=== PATIENT | male | born 1970 | race Caucasian/White ===

== ENCOUNTER 2019-07-16 14:51 | Emergency (ER) | payer OTHER ==
[~2019-07-16] VITALS: Ht 172.7 cm; Wt 93.9 kg
[~2019-07-16 14:51] MED LIST: ASPIRIN81 MG; ATENOLOL50 MG PO; BRILINTA90 MG; CARAFATE1 GM/10 ML PO; DIOVAN160 MG PO; HUMALOG100 UNIT/1; LEVAQUIN250 MG PO; LEVAQUIN500 MG PO; LIPITOR20 MG; PIOGLITAZONE HC45 MG PO; PROCARDIA XL30 MG; XYZAL5 MG PO
--- OUTSIDE RECORDS SUMMARY | 2019-07-16 14:54 | XMS REPORT ---
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 Allergies, Adverse Reactions, Alerts This patient has no known allergies or adverse reactions. Medications This patient has no known medications. Results Test Description Test Time Test Comments Text Results Atomic Results Result Comments POCT-GLUCOSE METER 2016-10-18 11:29:00 POC-GLUCOSE METER (BEAKER) (test gtcn=6842) 208 mg/dL 70-110 TESTED AT [facility] [address] [address] LIPID [id number] 09:01:00* Test Item Value Reference Range Comments TRIGLYCERIDES (BEAKER) (test nscm=548) 167 mg/dL Specimen slightly hemolyzed CHOLESTEROL (BEAKER) (test xrxr=027) 142 mg/dL Specimen slightly hemolyzed HDL CHOLESTEROL (BEAKER) (test xmfp=430) 30 mg/dL LDL CHOLESTEROL CALCULATED (BEAKER) (test xwhq=819) 79 mg/dL Triglyceride Reference Range: Low Risk <150 Borderline 150-199 High Risk 200-499 Very High Risk >=500Cholesterol Reference Range: Low Risk <200 Borderline 200-239 High Risk >240HDL Cholesterol Reference Range: Low Risk >=60 High Risk <40LDL Cholesterol Reference Range: Optimal <100 Near Optimal 100-129 Borderline 130-159 High 160-189 Very High >=190 HEMOGLOBIN [id number] 08:47:00* Test Item Value Reference Range Comments HEMOGLOBIN A1C (BEAKER) (test mahg=044) 10.2 % 4.3-6.1 CREATINE KINASE (CK), TOTAL AND [id number] 08:21:00* Test Item Value Reference Range Comments CREATINE KINASE TOTAL (BEAKER) (test zpwl=554) 97 U/L 40-250 CREATINE KINASE-MB (BEAKER) (test iwik=207) 7.7 ng/mL 0.0-4.9 CREATINE KINASE-MB INDEX (BEAKER) (test jlqx=643) 7.9 % CK-MB Reference Range:<5 Normal5-10 Borderline>10 AbnormalBASIC METABOLIC [id number] 08:06:00* Test Item Value Reference Range Comments SODIUM (BEAKER) (test pitw=781) 142 meq/L 135-148 POTASSIUM (BEAKER) (test svfd=945) 3.8 meq/L 3.6-5.5 Specimen slightly hemolyzed CHLORIDE (BEAKER) (test axkb=006) 108 meq/L 98-106 CO2 (BEAKER) (test rida=533) 22 meq/L 20-29 BLOOD UREA NITROGEN (BEAKER) (test yzrs=370) 21 mg/dL 10-26 CREATININE (BEAKER) (test pzxv=518) 1.20 mg/dL 0.50-1.20 Specimen slightly hemolyzed GLUCOSE RANDOM (BEAKER) (test ougn=249) 169 mg/dL 70-110 CALCIUM (BEAKER) (test fduu=626) 9.0 mg/dL 8.5-10.5 EGFR (BEAKER) (test mrpj=0724) 65 mL/min/1.73 sq m ESTIMATED GFR IS NOT ACCURATE CREATININE CLEARANCE IN PREDICTING GLOMERULAR FILTRATION RATE. ESTIMATED GFR IS NOT APPLICABLE FOR DIALYSIS PATIENTS. [id number] 07:58:00* Test Item Value Reference Range Comments MAGNESIUM (BEAKER) (test wqzt=231) 2.8 mg/dL 1.5-3.0 Specimen slightly hemolyzed POCT-GLUCOSE [id number] 07:49:00* Test Item Value Reference Range Comments POC-GLUCOSE METER (BEAKER) (test gthh=6705) 181 mg/dL 70-110 TESTED AT [facility] [address] [place] [address] CBC W/PLT COUNT & AUTO [id number] 07:41:00* Test Item Value Reference Range Comments WHITE BLOOD CELL COUNT (BEAKER) (test jzll=007) 9.3 K/ L 4.0-10.0 RED BLOOD CELL COUNT (BEAKER) (test vrfd=382) 4.77 M/ L 4.20-5.80 HEMOGLOBIN (BEAKER) (test mhgs=518) 14.3 GM/DL 13.0-16.8 HEMATOCRIT (BEAKER) (test yijp=246) 43.8 % 40.0-50.0 MEAN CORPUSCULAR VOLUME (BEAKER) (test mvrk=063) 91.7 fL 82.0-98.0 MEAN CORPUSCULAR HEMOGLOBIN (BEAKER) (test uoig=344) 29.9 pg 27.0-33.0 MEAN CORPUSCULAR HEMOGLOBIN CONC (BEAKER) (test mqmg=036) 32.7 GM/DL 32.0-36.0 RED CELL DISTRIBUTION WIDTH (BEAKER) (test ukqz=886) 12.8 % 10.3-14.2 PLATELET COUNT (BEAKER) (test lxwy=037) 276 K/CU MM 150-430 MEAN PLATELET VOLUME (BEAKER) (test mprk=730) 8.9 fL 6.5-10.5 NUCLEATED RED BLOOD CELLS (BEAKER) (test giwc=594) 0 /100 WBC 0-0 NEUTROPHILS RELATIVE PERCENT (BEAKER) (test roay=260) 69 % LYMPHOCYTES RELATIVE PERCENT (BEAKER) (test njog=014) 20 % MONOCYTES RELATIVE PERCENT (BEAKER) (test mjvv=310) 9 % EOSINOPHILS RELATIVE PERCENT (BEAKER) (test mpda=549) 2 % BASOPHILS RELATIVE PERCENT (BEAKER) (test pvgl=799) 1 % NEUTROPHILS ABSOLUTE COUNT (BEAKER) (test ggdo=376) 6.50 K/ L 1.80-8.00 LYMPHOCYTES ABSOLUTE COUNT (BEAKER) (test cefm=943) 1.80 K/ L 1.48-4.50 MONOCYTES ABSOLUTE COUNT (BEAKER) (test pfkp=401) 0.80 K/ L 0.00-1.30 EOSINOPHILS ABSOLUTE COUNT (BEAKER) (test nqmk=559) 0.20 K/ L 0.00-0.50 BASOPHILS ABSOLUTE COUNT (BEAKER) (test lglb=018) 0.10 K/ L 0.00-0.20 POCT-GLUCOSE [id number] 21:27:00* Test Item Value Reference Range Comments POC-GLUCOSE METER (BEAKER) (test vuhn=1778) 276 mg/dL 70-110 TESTED AT [facility] [address] [place] [address] BLOOD [id number] 19:00:00* Test Item Value Reference Range Comments CULTURE (BEAKER) (test wcov=3386) No growth in 5 days BLOOD [id number] 19:00:00* Test Item Value Reference Range Comments CULTURE (BEAKER) (test vixh=8648) No growth in 5 days POCT-GLUCOSE [id number] 18:41:00* Test Item Value Reference Range Comments POC-GLUCOSE METER (BEAKER) (test ccgc=5507) 175 mg/dL 70-110 TESTED AT [facility] [address] [address] BASIC METABOLIC [id number] 17:35:00* Test Item Value Reference Range Comments SODIUM (BEAKER) (test gxhq=579) 137 meq/L 135-148 POTASSIUM (BEAKER) (test jkgp=329) 3.9 meq/L 3.6-5.5 CHLORIDE (BEAKER) (test wtbs=083) 105 meq/L 98-106 CO2 (BEAKER) (test cfra=137) 21 meq/L 20-29 BLOOD UREA NITROGEN (BEAKER) (test vuwx=760) 23 mg/dL 10-26 CREATININE (BEAKER) (test qzyf=417) 1.30 mg/dL 0.50-1.20 GLUCOSE RANDOM (BEAKER) (test ntdi=293) 176 mg/dL 70-110 CALCIUM (BEAKER) (test qakr=567) 9.2 mg/dL 8.5-10.5 EGFR (BEAKER) (test yzbm=1500) 59 mL/min/1.73 sq m ESTIMATED GFR IS NOT ACCURATE CREATININE CLEARANCE IN PREDICTING GLOMERULAR FILTRATION RATE. ESTIMATED GFR IS NOT APPLICABLE FOR DIALYSIS PATIENTS. [id number] 17:29:00* Test Item Value Reference Range Comments MAGNESIUM (BEAKER) (test chev=481) 2.4 mg/dL 1.5-3.0 CBC W/PLT COUNT & AUTO [id number] 17:20:00* Test Item Value Reference Range Comments WHITE BLOOD CELL COUNT (BEAKER) (test nopf=376) 11.3 K/ L 4.0-10.0 RED BLOOD CELL COUNT (BEAKER) (test qavc=853) 4.86 M/ L 4.20-5.80 HEMOGLOBIN (BEAKER) (test nubh=699) 14.7 GM/DL 13.0-16.8 HEMATOCRIT (BEAKER) (test achy=210) 44.5 % 40.0-50.0 MEAN CORPUSCULAR VOLUME (BEAKER) (test knab=996) 91.5 fL 82.0-98.0 MEAN CORPUSCULAR HEMOGLOBIN (BEAKER) (test ffib=186) 30.2 pg 27.0-33.0 MEAN CORPUSCULAR HEMOGLOBIN CONC (BEAKER) (test hgkp=943) 33.0 GM/DL 32.0-36.0 RED CELL DISTRIBUTION WIDTH (BEAKER) (test kelo=794) 12.6 % 10.3-14.2 PLATELET COUNT (BEAKER) (test jmqb=508) 309 K/CU MM 150-430 MEAN PLATELET VOLUME (BEAKER) (test nhue=559) 8.9 fL 6.5-10.5 NUCLEATED RED BLOOD CELLS (BEAKER) (test nctp=009) 0 /100 WBC 0-0 NEUTROPHILS RELATIVE PERCENT (BEAKER) (test wzte=723) 78 % LYMPHOCYTES RELATIVE PERCENT (BEAKER) (test lkrp=928) 15 % MONOCYTES RELATIVE PERCENT (BEAKER) (test qfnh=907) 5 % EOSINOPHILS RELATIVE PERCENT (BEAKER) (test unrn=220) 2 % BASOPHILS RELATIVE PERCENT (BEAKER) (test zlwu=389) 0 % NEUTROPHILS ABSOLUTE COUNT (BEAKER) (test nigf=932) 8.80 K/ L 1.80-8.00 LYMPHOCYTES ABSOLUTE COUNT (BEAKER) (test nosr=432) 1.60 K/ L 1.48-4.50 MONOCYTES ABSOLUTE COUNT (BEAKER) (test pmsz=220) 0.60 K/ L 0.00-1.30 EOSINOPHILS ABSOLUTE COUNT (BEAKER) (test tvam=538) 0.20 K/ L 0.00-0.50 BASOPHILS ABSOLUTE COUNT (BEAKER) (test dhgd=129) 0.00 K/ L 0.00-0.20 POCT-GLUCOSE [id number] 16:39:00* Test Item Value Reference Range Comments POC-GLUCOSE METER (BEAKER) (test iopj=0618) 180 mg/dL 70-110 TESTED AT [facility] [address] [address] POCT-GLUCOSE [id number] 12:54:00* Test Item Value Reference Range Comments POC-GLUCOSE METER (BEAKER) (test pvcb=4755) 331 mg/dL 70-110 TESTED AT [address] [address] POCT-GLUCOSE [id number] 06:37:00* Test Item Value Reference Range Comments POC-GLUCOSE METER (BEAKER) (test pnkh=4845) 212 mg/dL 70-110 TESTED AT [address] [address] POCT-GLUCOSE [id number] 20:54:00* Test Item Value Reference Range Comments POC-GLUCOSE METER (BEAKER) (test wiez=4535) 167 mg/dL 70-110 TESTED AT [place] [address] POCT-GLUCOSE [id number] 17:00:00* Test Item Value Reference Range Comments POC-GLUCOSE METER (BEAKER) (test ogbk=6423) 156 mg/dL 70-110 TESTED AT [address] [address] ANTI-NUCLEAR ANTIBODY (BRENDEN)2016-10-16 14:30:00* Test Item Value Reference Range Comments ANTI-NUCLEAR ANTIBODY (BRENDEN) (BEAKER) (test ryod=340) Negative Negative POCT-GLUCOSE [id number] 13:01:00* Test Item Value Reference Range Comments POC-GLUCOSE METER (BEAKER) (test lwwb=6657) 245 mg/dL 70-110 TESTED AT [place] [address] POCT-GLUCOSE [id number] 11:53:00* Test Item Value Reference Range Comments POC-GLUCOSE METER (BEAKER) (test vklc=2470) 269 mg/dL 70-110 TESTED AT [address] [address] POCT-GLUCOSE [id number] 06:15:00* Test Item Value Reference Range Comments POC-GLUCOSE METER (BEAKER) (test mlkz=9482) 263 mg/dL 70-110 TESTED AT [address] [address] POCT-GLUCOSE [id number] 06:02:00* Test Item Value Reference Range Comments POC-GLUCOSE METER (BEAKER) (test znwj=0147) 176 mg/dL 70-110 TESTED AT [place] [address] POCT-GLUCOSE [id number] 05:41:00* Test Item Value Reference Range Comments POC-GLUCOSE METER (BEAKER) (test qtmj=4935) 202 mg/dL 70-110 TESTED AT [facility] [address] [address] POCT-GLUCOSE [id number] 05:21:00* Test Item Value Reference Range Comments POC-GLUCOSE METER (ELVIRAAKER) (test pddq=2835) 183 mg/dL 70-110 TESTED AT [facility] [address] [address] POCT-GLUCOSE [id number] 05:05:00* Test Item Value Reference Range Comments POC-GLUCOSE METER (ELVIRAAKER) (test mzcv=9296) 176 mg/dL 70-110 TESTED AT [address] [address] POCT-GLUCOSE [id number] 04:59:00* Test Item Value Reference Range Comments POC-GLUCOSE METER (BINDU) (test ugaq=4706) 269 mg/dL 70-110 TESTED AT [address] [address] TROPONIN [id number] 13:40:00* Test Item Value Reference Range Comments TROPONIN I (ELVIRAAKER) (test xyha=355) < ng/mL 0.00-0.15 Troponin I (TnI) levels must be interpreted in the context of the presenting sym ptoms and the clinical findings. Elevated TnI levels indicate myocardial damage, but are not specific for ischemic heart disease. Elevated TnI levels are seen in patients with other cardiac conditions (including myocarditis and congestive h eart failure), and slight TnI elevations occur in patients with other conditions , including sepsis, renal failure, acidosis, acute neurological disease, and per sistent tachyarrhythmia.CREATINE KINASE (CK), TOTAL AND [id number] 13:40:00* Test Item Value Reference Range Comments CREATINE KINASE TOTAL (BEAKER) (test sirc=838) 46 U/L 40-250 CREATINE KINASE-MB (BEAKER) (test djbq=655) 0.6 ng/mL 0.0-4.9 CREATINE KINASE-MB INDEX (BEAKER) (test kxwm=470) 1.3 % CK-MB Reference Range:<5 Normal5-10 Borderline>10 AbnormalBASIC METABOLIC [id number] 13:40:00* Test Item Value Reference Range Comments SODIUM (BEAKER) (test klez=365) 138 meq/L 135-148 POTASSIUM (BEAKER) (test tfny=595) 4.0 meq/L 3.6-5.5 CHLORIDE (BEAKER) (test rgun=330) 102 meq/L 98-106 CO2 (BEAKER) (test tfwu=360) 23 meq/L 20-29 BLOOD UREA NITROGEN (BEAKER) (test vwgb=109) 12 mg/dL 10-26 CREATININE (BEAKER) (test hpjv=398) 1.20 mg/dL 0.50-1.20 GLUCOSE RANDOM (BEAKER) (test pfac=016) 316 mg/dL 70-110 CALCIUM (BEAKER) (test fbab=063) 9.3 mg/dL 8.5-10.5 EGFR (BEAKER) (test iise=3407) 65 mL/min/1.73 sq m ESTIMATED GFR IS NOT ACCURATE CREATININE CLEARANCE IN PREDICTING GLOMERULAR FILTRATION RATE. ESTIMATED GFR IS NOT APPLICABLE FOR DIALYSIS PATIENTS. CBC W/PLT COUNT & AUTO [id number] 12:50:00* Test Item Value Reference Range Comments WHITE BLOOD CELL COUNT (BEAKER) (test tpur=531) 11.6 K/ L 4.0-10.0 RED BLOOD CELL COUNT (BEAKER) (test mwss=788) 4.94 M/ L 4.20-5.80 HEMOGLOBIN (BEAKER) (test jwvz=022) 15.0 GM/DL 13.0-16.8 HEMATOCRIT (BEAKER) (test zfrk=317) 45.2 % 40.0-50.0 MEAN CORPUSCULAR VOLUME (BEAKER) (test meun=852) 91.4 fL 82.0-98.0 MEAN CORPUSCULAR HEMOGLOBIN (BEAKER) (test bicv=567) 30.3 pg 27.0-33.0 MEAN CORPUSCULAR HEMOGLOBIN CONC (BEAKER) (test kuqe=928) 33.1 GM/DL 32.0-36.0 RED CELL DISTRIBUTION WIDTH (BEAKER) (test xtvu=226) 12.5 % 10.3-14.2 PLATELET COUNT (BEAKER) (test xfee=194) 255 K/CU MM 150-430 MEAN PLATELET VOLUME (BEAKER) (test izfq=112) 9.4 fL 6.5-10.5 NEUTROPHILS RELATIVE PERCENT (BEAKER) (test cmjg=418) 81 % LYMPHOCYTES RELATIVE PERCENT (BEAKER) (test wbkj=002) 10 % MONOCYTES RELATIVE PERCENT (BEAKER) (test isgr=557) 6 % EOSINOPHILS RELATIVE PERCENT (BEAKER) (test noqq=180) 3 % BASOPHILS RELATIVE PERCENT (BEAKER) (test lnxi=931) 0 % NEUTROPHILS ABSOLUTE COUNT (BEAKER) (test ojgx=795) 9.40 K/ L 1.80-8.00 LYMPHOCYTES ABSOLUTE COUNT (BEAKER) (test znmd=894) 1.20 K/ L 1.48-4.50 MONOCYTES ABSOLUTE COUNT (BEAKER) (test qhzg=519) 0.70 K/ L 0.00-1.30 EOSINOPHILS ABSOLUTE COUNT (BEAKER) (test ellh=084) 0.30 K/ L 0.00-0.50 BASOPHILS ABSOLUTE COUNT (BEAKER) (test mtac=583) 0.00 K/ L 0.00-0.20 POCT-GLUCOSE [id number] 05:43:00* Test Item Value Reference Range Comments POC-GLUCOSE METER (BEAKER) (test uwuf=0470) 183 mg/dL 70-110 TESTED AT [address] [address] POCT-GLUCOSE [id number] 21:00:00* Test Item Value Reference Range Comments POC-GLUCOSE METER (BEAKER) (test nkuy=0334) 189 mg/dL 70-110 TESTED AT [address] [address] POCT-GLUCOSE [id number] 16:49:00* Test Item Value Reference Range Comments POC-GLUCOSE METER (BEAKER) (test njae=3391) 230 mg/dL 70-110 TESTED AT [address] [address] POCT-GLUCOSE [id number] 12:01:00* Test Item Value Reference Range Comments POC-GLUCOSE METER (BEAKER) (test bazw=7040) 219 mg/dL 70-110 TESTED AT [address] [address] POCT-GLUCOSE [id number] 07:13:00* Test Item Value Reference Range Comments POC-GLUCOSE METER (BEAKER) (test nezw=9076) 206 mg/dL 70-110 TESTED AT [place] [address] VANCOMYCIN LEVEL, [id number] 05:07:00* Test Item Value Reference Range Comments VANCOMYCIN TROUGH (BINDU) (test atql=717) 12.5 ug/mL 10.0-20.0 B-TYPE NATRIURETIC FACTOR (BNP)2016-10-13 04:52:00* Test Item Value Reference Range Comments B-TYPE NATRIURETIC PEPTIDE (BINDU) (test tefg=938) 21 pg/mL 0-100 Draw labs at 7 am Sunday 14POCT-GLUCOSE [id number] 21:33:00* Test Item Value Reference Range Comments POC-GLUCOSE METER (ELVIRADealTraction) (test cstx=3486) 229 mg/dL 70-110 TESTED AT [place] [address] POCT-GLUCOSE [id number] 19:05:00* Test Item Value Reference Range Comments POC-GLUCOSE METER (BINDU) (test kvto=3660) 243 mg/dL 70-110 TESTED AT [place] [address] T4, [id number] 18:34:00* Test Item Value Reference Range Comments FREE T4 (BINDU) (test micb=645) 1.03 ng/dL 0.90-1.80 [id number] 18:33:00* Test Item Value Reference Range Comments THYROID STIMULATING HORMONE (BINDU) (test vnvp=503) 1.10 uIU/mL 0.35-5.50 POCT-GLUCOSE [id number] 15:09:00* Test Item Value Reference Range Comments POC-GLUCOSE METER (BINDU) (test trfz=2856) 202 mg/dL 70-110 TESTED AT [place] [address]
[2019-07-16] MEDS ORDERED: ACETAMINOPHEN 325 MG TAB PO ONE (16:00)
[2019-07-16] MEDS ORDERED: IBUPROFEN 400 MG TAB PO ONE (16:00)
[2019-07-16 16:35] LABS: INFLUENZAE A&B ANTIGEN (RAPID) NEGATIVE (NEGATIVE)
[2019-07-16 16:45] LABS: STREPTOCOCCUS GRP A ANTIGEN NEGATIVE (NEGATIVE)
[2019-07-16] MEDS ORDERED: SODIUM CHLORIDE 0.9% 1000ML 1,000 ML IV STA (17:06)
[2019-07-16] MEDS ORDERED: ONDANSETRON HCL INJ 2MG/ML 2ML 2 MG/ML VIAL IV STA (17:06)
[2019-07-16] MEDS ORDERED: ASPIRIN 81 MG CHEW TAB PO ONE (17:15)
[2019-07-16 17:51] LABS: BASOPHILS % 0.3 % (0.0-1.0); EOSINOPHILS % 0.1 % (0.0-6.0); HEMATOCRIT 51.4 % (38.2-49.6); HEMOGLOBIN 17.8 g/dL (14.0-18.0); LYMPHOCYTES # (AUTO) 0.6 (1.0-3.2); LYMPHOCYTES % 8.9 % (18.0-39.1); MEAN CORPUSCULAR HGB CONC 34.6 g/dL (31-35); MEAN CORPUSCULAR VOLUME 89.5 fL (81-99); MONOCYTES # (AUTO) 0.7 (0.2-0.8); MONOCYTES % 9.5 % (4.4-11.3); NEUTROPHILS # (AUTO) 5.6 (2.1-6.9); NEUTROPHILS % 80.8 % (38.7-80.0); PLATELET COUNT 163 x10e3/uL (140-360); RED BLOOD COUNT 5.74 x10e6/uL (4.3-5.7); RED CELL DISTRIBUTION WIDTH 11.9 % (11.7-14.4)
[2019-07-16 18:05] LABS: INR 0.93
[2019-07-16 18:06] LABS: PARTIAL THROMBOPLASTIN TIME 34.9 seconds (23.8-35.5)
[2019-07-16 18:10] LABS: ALBUMIN 4.7 g/dL (3.5-5.0); ALBUMIN/GLOBULIN RATIO 1.1 (0.8-2.0); ANION GAP 15.6 mmol/L (8-16); CREATININE, SERUM 1.8 mg/dL (0.72-1.25); POTASSIUM 4.6 mmol/L (3.5-5.1)
[2019-07-16 18:12] LABS: BILIRUBIN,URINE NEGATIVE (NEGATIVE); CLARITY,URINE SL CLOUDY (CLEAR); COLOR,URINE YELLOW (YELLOW); KETONES,URINE NEGATIVE (NEGATIVE); LEUKOCYTE ESTERASE ,URINE NEGATIVE (NEGATIVE); NITRITE,URINE NEGATIVE (NEGATIVE); PROTEIN,URINE DIPSTICK NEGATIVE (NEGATIVE); URINE UROBILINOGEN 0.2 mg/dL (0.2 - 1)
[2019-07-16 18:16] LABS: CREATINE KINASE MB 0.6 ng/mL (0-5.0)
[2019-07-16 18:20] LABS: EPITHELIAL CELLS,URINE RARE /LPF
--- NOTE | 2019-07-16 18:29 | Diagnostic Imaging Report ---
EXAMINATION: CHEST SINGLE (PORTABLE) COMPARISON: None INDICATION: Flulike symptoms ^ERMD ORDER ^[id number] ^1730 ^Y DISCUSSION: Frontal view of the chest obtained at 1747 hours. HEART AND MEDIASTINUM: The cardiomediastinal silhouette is unremarkable. LINES: None. LUNGS: The lungs are well inflated and clear. No pneumonia or pulmonary edema. PLEURA: No pleural effusion or pneumothorax. BONES AND SOFT TISSUES: No focal osseous lesion. The soft tissues are normal. IMPRESSION: No acute cardiopulmonary disease. Signed by: Dr. Daysi Mayo MD on 07/16/2019 6:26 PM
[2019-07-16 18:39] LABS: B-TYPE NATRIURETIC PEPTIDE2 < 10.0 pg/mL (0-100)
[2019-07-16] MEDS ORDERED: INSULIN REGULAR, HUMAN 100 UNIT/1 ML 3ML VIAL IV ONE (18:45)
[2019-07-16] MEDS ORDERED: SODIUM CHLORIDE 0.9% 1000ML 1,000 ML IV ONE (18:45)
[2019-07-16 21:36] VITALS: BP 130/100
== END 2019-07-16 21:51 | disposition home or self-care (01) ==
LOC: ER 14:51
DX: J11.1 Influenza due to unidentified influenza virus with other respiratory manifestations (principal); J40 Bronchitis, not specified as acute or chronic; I10 Essential (primary) hypertension; E11.9 Type 2 diabetes mellitus without complications; I25.10 Atherosclerotic heart disease of native coronary artery without angina pectoris; Z85.9 Personal history of malignant neoplasm, unspecified; E66.9 Obesity, unspecified; Z68.31 Body mass index [BMI] 31.0-31.9, adult; K21.9 Gastro-esophageal reflux disease without esophagitis; Z79.82 Long term (current) use of aspirin; Z79.4 Long term (current) use of insulin
CPT/HCPCS: 36415; 71045; 80053; 81001; 82550; 82553; 82948; 83518; 83605; 83880; 84484; 85025; 85610; 85730; 87040; 87070; 87400; 99283; J1817; J7030

== ENCOUNTER 2019-07-22 11:05 | Emergency (ER) | payer OTHER ==
[~2019-07-22] VITALS: Ht 172.7 cm; Wt 94.8 kg
[2019-07-22] MEDS ORDERED: SODIUM CHLORIDE 0.9% 1000ML 1,000 ML IV STA (11:36)
[2019-07-22] MEDS ORDERED: ACETAMINOPHEN 325 MG TAB ONE (11:44)
[2019-07-22 11:49] LABS: BASOPHILS % 0.1 % (0.0-1.0); EOSINOPHILS # (AUTO) 0.1 (0.0-0.4); EOSINOPHILS % 1.9 % (0.0-6.0); HEMATOCRIT 52.2 % (38.2-49.6); HEMOGLOBIN 18.3 g/dL (14.0-18.0); LYMPHOCYTES # (AUTO) 0.7 (1.0-3.2); MEAN CORPUSCULAR HEMOGLOBIN 31.2 pg (28-32); MEAN CORPUSCULAR HGB CONC 35.1 g/dL (31-35); MEAN CORPUSCULAR VOLUME 88.9 fL (81-99); MONOCYTES # (AUTO) 0.2 (0.2-0.8); MONOCYTES % 3.3 % (4.4-11.3); NEUTROPHILS # (AUTO) 5.7 (2.1-6.9); NEUTROPHILS % 84.4 % (38.7-80.0); PLATELET COUNT 175 x10e3/uL (140-360); RED BLOOD COUNT 5.87 x10e6/uL (4.3-5.7); RED CELL DISTRIBUTION WIDTH 11.7 % (11.7-14.4)
[2019-07-22 12:00] LABS: STREPTOCOCCUS GRP A ANTIGEN NEGATIVE (NEGATIVE)
[2019-07-22] MEDS ORDERED: ACETAMINOPHEN 325 MG TAB PO ONE (12:00)
[2019-07-22 12:12] LABS: INFLUENZAE A&B ANTIGEN (RAPID) NEGATIVE (NEGATIVE)
[2019-07-22 12:21] LABS: ALBUMIN 3.7 g/dL (3.5-5.0); ALBUMIN/GLOBULIN RATIO 0.7 (0.8-2.0); ANION GAP 27.7 mmol/L (8-16); CALCIUM 10.2 mg/dL (8.4-10.2); CREATININE, SERUM 1.67 mg/dL (0.72-1.25); POTASSIUM 3.7 mmol/L (3.5-5.1)
[2019-07-22] MEDS ORDERED: ONDANSETRON HCL INJ 2MG/ML 2ML 2 MG/ML VIAL IV STA (12:33)
--- NOTE | 2019-07-22 12:54 | Diagnostic Imaging Report ---
Examination: Single AP view of the chest. COMPARISON: Portable chest 07/16/2019aa INDICATION: Fever, cough for 2 weeks IMPRESSION: 1. Lines and Tubes: None 2. Lungs are well-inflated. Airspace opacity in the left mid and lower lung, likely representing pneumonia in the appropriate clinical setting. Right lung is clear. No effusion. 3. Cardiomediastinal silhouette is normal. Pulmonary vasculature is normal. 4. No acute bony abnormalities. Signed by: Dr. Ruslan Christensen M.D. on 07/22/2019 12:50 PM
[2019-07-22] MEDS ORDERED: CEFTRIAXONE SOD 1 GM/NS 50 ML 50 ML IV ONE (13:15)
[2019-07-22 13:25] LABS: CLARITY,URINE CLEAR (CLEAR); COLOR,URINE YELLOW (YELLOW); LEUKOCYTE ESTERASE ,URINE NEGATIVE (NEGATIVE); NITRITE,URINE NEGATIVE (NEGATIVE); PROTEIN,URINE DIPSTICK NEGATIVE (NEGATIVE)
[2019-07-22 13:26] LABS: AMPHETAMINES SCREEN,URINE NEGATIVE (NEGATIVE); BENZODIAZEPINES SCREEN,URINE NEGATIVE (NEGATIVE); BILIRUBIN,URINE NEGATIVE (NEGATIVE); KETONES,URINE 3+ (NEGATIVE); PHENCYCLIDINE SCREEN,URINE NEGATIVE (NEGATIVE); URINE UROBILINOGEN 0.2 mg/dL (0.2 - 1)
[2019-07-22 13:35] LABS: RBC,URINE 0-5 /HPF (0-5); WBC,URINE (MAN) 0-5 /HPF (0-5)
[2019-07-22 13:45] VITALS: BP 137/82
[2019-07-22] MEDS ORDERED: AZITHROMYCIN 500MG/NS 250 ML 250 ML IV ONE (13:50)
== END 2019-07-22 14:40 | disposition home or self-care (01) ==
LOC: ER 11:05
DX: R50.9 Fever, unspecified (principal); R05 Cough; J15.9 Unspecified bacterial pneumonia; I10 Essential (primary) hypertension; E78.5 Hyperlipidemia, unspecified; I51.9 Heart disease, unspecified; F41.9 Anxiety disorder, unspecified
CPT/HCPCS: 36415; 71045; 80053; 80307; 81001; 83518; 85025; 87040; 87070; 87400; 99284; J0456; J0696; J2405; J7030

== ENCOUNTER 2019-07-23 15:20 | Inpatient (IN) | payer OTHER ==
[~2019-07-23] VITALS: Ht 172.7 cm; Wt 94.5 kg
[2019-07-23] MEDS: AZITHROMYCIN 500MG/NS 250 ML 250 ML IV SCH
[~2019-07-23 15:20] MED LIST changes: +VECURONIUM BROMIDE FOR INJ 20 MG VIAL ONE; +WATER STERILE 10 ML VIAL ONE
[2019-07-23] MEDS ORDERED: SODIUM CHLORIDE 0.9% 1000ML 1,000 ML IV STA (15:26)
[2019-07-23] MEDS ORDERED: AZITHROMYCIN 500MG/NS 250 ML 250 ML IV ONE (15:30)
[2019-07-23 15:44] LABS: BASOPHILS # (AUTO) 0.1 (0.0-0.1); BASOPHILS % 0.5 % (0.0-1.0); HEMATOCRIT 54.9 % (38.2-49.6); HEMOGLOBIN 18.1 g/dL (14.0-18.0); LYMPHOCYTES # (AUTO) 1.4 (1.0-3.2); LYMPHOCYTES % 9.9 % (18.0-39.1); MEAN CORPUSCULAR HEMOGLOBIN 31.2 pg (28-32); MEAN CORPUSCULAR VOLUME 94.5 fL (81-99); MONOCYTES # (AUTO) 0.5 (0.2-0.8); MONOCYTES % 3.4 % (4.4-11.3); NEUTROPHILS # (AUTO) 11.9 (2.1-6.9); NEUTROPHILS % 84.6 % (38.7-80.0); PLATELET COUNT 301 x10e3/uL (140-360); RED BLOOD COUNT 5.81 x10e6/uL (4.3-5.7); RED CELL DISTRIBUTION WIDTH 12.2 % (11.7-14.4)
[2019-07-23 15:56] LABS: INR 1.18; PROTHROMBIN TIME 15.8 seconds (11.9-14.5)
[2019-07-23 15:57] LABS: PARTIAL THROMBOPLASTIN TIME 35.3 seconds (23.8-35.5)
[2019-07-23] MEDS ORDERED: PIPER-TAZ 3.375 GM 50 ML IV ONE (16:00)
[2019-07-23] MEDS ORDERED: SODIUM CHLORIDE 0.9% 1000ML 2,000 ML IV STA (16:03)
[2019-07-23 16:06] LABS: ALBUMIN 3.6 g/dL (3.5-5.0); ALBUMIN/GLOBULIN RATIO 0.7 (0.8-2.0); ANION GAP 39.7 mmol/L (8-16); CALCIUM 9.5 mg/dL (8.4-10.2); CREATININE, SERUM 2.03 mg/dL (0.72-1.25); MAGNESIUM 2.5 MG/DL (1.3-2.1); POTASSIUM 3.7 mmol/L (3.5-5.1)
[2019-07-23 16:12] LABS: CREATINE KINASE MB 0.9 ng/mL (0-5.0)
[2019-07-23 16:13] LABS: B-TYPE NATRIURETIC PEPTIDE2 21.6 pg/mL (0-100)
[2019-07-23] MEDS ORDERED: PROPOFOL IV EMULSION 10MG/ML 100 ML ONE ×4 (16:28→22:16)
[2019-07-23] MEDS ORDERED: INSULIN REGULAR, HUMAN 100 UNIT/1 ML 3ML VIAL IV ONE (16:30)
[2019-07-23] MEDS ORDERED: DEXTROSE 50% SYRINGE 50 ML IV PRN (16:30)
[2019-07-23] MEDS ORDERED: SODIUM CHLORIDE 0.9% 100 ML ONE (16:46)
[2019-07-23] MEDS ORDERED: SODIUM BICARBONATE 8.4% INJ 50 ML SYR IV STA (16:51)
--- NOTE | 2019-07-23 16:53 | Diagnostic Imaging Report ---
EXAMINATION: CHEST SINGLE (PORTABLE) INDICATION: Intubation, shortness of breath COMPARISON: Chest radiograph 07/22/2019 FINDINGS: LINES/TUBES:Interval intubation. Endotracheal tube terminates approximately 4 cm above the georgi. LUNGS:The lungs are moderately inflated. Hazy bilateral left greater than right airspace opacities. PLEURA:No pleural effusion or pneumothorax. MEDIASTINUM:The cardiomediastinal silhouette appears unchanged in size and shape. BONES/SOFT TISSUES:No acute osseous injury. ABDOMEN:No free air under the diaphragm. IMPRESSION: Endotracheal tube terminates 4 cm above the georgi. Hazy bilateral airspace opacities, slightly less prominent compared to 07/22/2019. Signed by: Frantz Singer MD on 07/23/2019 4:50 PM
[2019-07-23 16:57] LABS: ABG PH 6.92 (7.31-7.41)
[2019-07-23 16:58] LABS: ABG HCO3 7 mmol/L (23-28); ABG PCO2 32 mmHg (41-51)
[2019-07-23] MEDS ORDERED: INSULIN REGULAR, HUMAN 3ML VL 100 UNIT in SODIUM CHLORIDE 0.9% 100 ML IV SCH ×2 (17:00)
--- NOTE | 2019-07-23 17:56 | Diagnostic Imaging Report ---
EXAM: CT Chest WITHOUT intravenous contrast 07/23/2019 3:37 PM INDICATION: Shortness of breath, cough COMPARISON: Chest radiograph of earlier the same day, chest radiographs of 07/22/2019 and 07/16/2019 TECHNIQUE: Chest was scanned utilizing a multidetector helical scanner from the lung apex through the level of the adrenal glands without administration of IV contrast. Coronal and sagittal reformations were obtained. Routine protocol was performed. IV CONTRAST: None RADIATION DOSE: Total DLP: 447.3 mGy*cm. Dose modulation, iterative reconstruction, and/or weight based adjustment of the mA/kV was utilized to reduce the radiation dose to as low as reasonably achievable. COMPLICATIONS: None FINDINGS: LINES/ TUBES: Endotracheal tube terminates in the midthoracic trachea. LUNGS AND AIRWAYS: The central airways are patent. There are diffuse predominantly peripheral and predominantly lower lung groundglass opacities with some areas of more focal consolidation. Bibasilar dependent subsegmental atelectasis. PLEURA: The pleural spaces are clear. HEART AND MEDIASTINUM: The thyroid gland is normal. No supraclavicular, axillary, mediastinal, or hilar lymphadenopathy. Mild cardiomegaly. Atherosclerotic calcifications involve the coronary arteries and thoracic aorta. UPPER ABDOMEN: No acute findings. BONES: No acute osseous injury. No suspicious lytic or blastic lesions. SOFT TISSUES: Unremarkable. IMPRESSION: Extensive bilateral predominantly peripheral and predominantly lower lobe groundglass opacities with some areas of more focal consolidation. Findings are concerning for atypical viral pneumonia. The above findings were discussed with Dr. Lopez on 07/23/2019 5:45 PM, who responded indicating that the communication was understood. Signed by: Frantz Singer MD on 07/23/2019 5:53 PM
[2019-07-23] MEDS ORDERED: ETOMIDATE 2 MG/ML 10 ML INJ IV STA (18:21)
[2019-07-23] MEDS ORDERED: SUCCINYLCHOLINE 200 MG/10 ML SYR IV STA (18:21)
[2019-07-23 18:24] LABS: LYMPHOCYTES % (MANUAL) 6 % (19-48); MONOCYTES % (MANUAL) 2 % (3.4-9.0); NEUTROPHILS % (MANUAL) 88 % (40-74); PLATELET ESTIMATE ADEQUATE; PLATELET MORPHOLOGY COMMENT NORMAL; RBC MORPHOLOGY COMMENT NORMAL
[2019-07-23] MEDS ORDERED: PROPOFOL IV EMULSION 10 MG/ML 20 ML VIAL IV ONE (18:30)
[2019-07-23] MEDS: SODIUM CHLORIDE 0.9% 1000ML 1,000 ML IV SCH ×2 (19:15→22:51)
[2019-07-23] MEDS: DEXTROSE 5%/0.45% SOD CHL 1,000 ML IV SCH (20:32)
[2019-07-23] MEDS ORDERED: VANCOMYCIN 1GM/NS 250 ML 250 ML ONE (20:43)
[2019-07-23] MEDS ORDERED: INSULIN REGULAR, HUMAN 3ML VL 100 UNIT in SODIUM CHLORIDE 0.9% 99 ML IV SCH ×2 (20:45)
[2019-07-23] MEDS ORDERED: MAGNESIUM SULF 1GRAM/DEXTROSE 100 ML IV PRN (20:45)
[2019-07-23] MEDS ORDERED: AZITHROMYCIN 500MG/SOD CHL 0.9% 250ML BAG IV SCH (20:45)
[2019-07-23] MEDS ORDERED: VANCOMYCIN HCL 1GM/NS 250 ML BAG IV SCH (20:45)
[2019-07-23] MEDS ORDERED: POTASSIUM CHLORIDE 20MEQ/100ML 200 ML IV PRN (20:45)
--- NOTE | 2019-07-23 22:42 | Diagnostic Imaging Report ---
EXAMINATION: CHEST XRAY LINE PLACEMENT INDICATION: POST CENTRAL LINE PLACEMENT COMPARISON: None FINDINGS: TUBES and LINES: Interval placement of a right jugular central venous catheter with distal tip projected on the cavoatrial junction. LUNGS: Redemonstration of bilateral nearly diffuse patchy airspace disease. PLEURA: No pleural effusion or pneumothorax. HEART AND MEDIASTINUM: Cardiac size is mildly enlarged. BONES AND SOFT TISSUES: No acute osseous lesion. Soft tissues are unremarkable. UPPER ABDOMEN: No free air under the diaphragm. IMPRESSION: 1. Interval placement of a right jugular central venous catheter with distal tip projected on the cavoatrial junction. 2. Redemonstration of bilateral nearly diffuse patchy airspace disease suggestive of atypical infection. Signed by: Dr. Jaylin Good M.D. on 07/23/2019 10:38 PM
[2019-07-23] MEDS: VANCOMYCIN 1GM/NS 250 ML 250 ML IV SCH (22:45)
[2019-07-23] MEDS: PIPER-TAZ 3.375 GM 50 ML IV SCH (22:52)
[2019-07-23 23:30] VITALS: BP 129/78
[2019-07-24] VITALS (25 sets, daily range): BP systolic 101–152; BP diastolic 67–88
[2019-07-24] MEDS: SODIUM CHLORIDE 0.9% 1000ML 1,000 ML IV SCH ×5 (00:32→08:35)
[2019-07-24 00:49] LABS: ANION GAP 30.2 mmol/L (8-16); CREATININE, SERUM 1.86 mg/dL (0.72-1.25); MAGNESIUM 2.4 MG/DL (1.3-2.1); POTASSIUM 3.2 mmol/L (3.5-5.1)
[2019-07-24] MEDS: POTASSIUM CHLORIDE 20MEQ/100ML 100 ML IV PRN (01:00)
[2019-07-24] MEDS: PROPOFOL IV EMULSION 10MG/ML 100 ML IV SCH ×5 (01:00→21:01)
[2019-07-24] MEDS ORDERED: POTASSIUM CHLORIDE 20MEQ/100ML 100 ML ONE (01:56)
[2019-07-24 03:26] LABS: ABG HCO3 11 mmol/L (23-28); ABG PCO2 28 mmHg (41-51); ABG PH 7.19 (7.31-7.41)
[2019-07-24 04:47] LABS: BASOPHILS # (AUTO) 0.1 (0.0-0.1); BASOPHILS % 0.7 % (0.0-1.0); HEMATOCRIT 46.2 % (38.2-49.6); HEMOGLOBIN 15.6 g/dL (14.0-18.0); LYMPHOCYTES # (AUTO) 1.3 (1.0-3.2); LYMPHOCYTES % 12.8 % (18.0-39.1); MEAN CORPUSCULAR HEMOGLOBIN 31.5 pg (28-32); MEAN CORPUSCULAR HGB CONC 33.8 g/dL (31-35); MEAN CORPUSCULAR VOLUME 93.3 fL (81-99); MONOCYTES # (AUTO) 0.7 (0.2-0.8); MONOCYTES % 6.9 % (4.4-11.3); NEUTROPHILS % 77.5 % (38.7-80.0); PLATELET COUNT 159 x10e3/uL (140-360); RED BLOOD COUNT 4.95 x10e6/uL (4.3-5.7); RED CELL DISTRIBUTION WIDTH 12.1 % (11.7-14.4)
[2019-07-24 05:08] LABS: ANION GAP 24.4 mmol/L (8-16); CALCIUM 8.2 mg/dL (8.4-10.2); CREATININE, SERUM 1.63 mg/dL (0.72-1.25); MAGNESIUM 2.3 MG/DL (1.3-2.1); POTASSIUM 3.4 mmol/L (3.5-5.1)
[2019-07-24] MEDS: DEXTROSE 5%/0.45% SOD CHL 1,000 ML IV SCH (05:20)
[2019-07-24] MEDS: PIPER-TAZ 3.375 GM 50 ML IV SCH ×3 (06:00→21:45)
[2019-07-24] MEDS ORDERED: INSULIN REGULAR, HUMAN 100 UNIT/1 ML 3ML VIAL ONE (06:21)
[2019-07-24] MEDS ORDERED: SODIUM CHLORIDE 0.9% 100 ML ONE (06:21)
[2019-07-24] MEDS: VALSARTAN 160 MG TAB PO SCH (09:00)
[2019-07-24] MEDS ORDERED: ATENOLOL 50 MG TAB PO SCH (09:00)
[2019-07-24] MEDS ORDERED: ATORVASTATIN 20 MG TAB PO SCH (09:00)
[2019-07-24 09:16] LABS: ANION GAP 17.3 mmol/L (8-16); CALCIUM 7.5 mg/dL (8.4-10.2); CREATININE, SERUM 1.56 mg/dL (0.72-1.25); MAGNESIUM 2.2 MG/DL (1.3-2.1); POTASSIUM 3.3 mmol/L (3.5-5.1)
[2019-07-24] MEDS: FENTANYL CITRATE INJ 2,000 MCG in SODIUM CHLORIDE 0.9% 250ML 210 ML IV PRN ×2 (09:48→22:26)
--- NOTE | 2019-07-24 10:17 | Progress Note ---
DATE: Pulmonary/Critical Care Progress Note SUBJECTIVE: The patient is continuing on the insulin drip. He has received intravenous fluids. He remains on assist-control mode of ventilation and was switched to pressure support, CPAP this morning. When the sedation is stopped, he wakes up. PHYSICAL EXAMINATION: VITAL SIGNS: The patient is afebrile. The blood pressure is 108/77, saturation is 100%, respiratory rate is 30 to 32, and tidal volumes are 300 to 400 mL. He is on pressure support of 8 and CPAP of 5. HEENT: Shows no facial swelling or erythema. There is an oral endotracheal tube in place. There is a right IJ line. The site looks clean. There is no drainage. CARDIAC: Reveals a regular rate and rhythm with normal S1 and S2. LUNGS: Auscultation of lungs reveals crackles at the bases. There is no wheezing. ABDOMEN: Soft and nontender. There is no rebound or guarding. EXTREMITIES: Show no leg edema or calf tenderness. There is no cyanosis or clubbing. SKIN: Shows no rashes. NEUROLOGICAL: Shows no focal abnormalities. RADIOGRAPHIC DATA: Chest x-ray shows bilateral airspace opacities. LABORATORY DATA: The sodium is 146 and the chloride is 113. The carbon dioxide is 12. The BUN to creatinine ratio is 31 to 1.63. Magnesium is 2.3. The white blood cell count is 10.3 and hemoglobin is 15.6. The platelet count is 159. IMPRESSION: 1. Diabetic ketoacidosis. 2. Atypical pneumonia with severe sepsis, present on admission. 3. Acute kidney injury. 4. Acute respiratory failure. 5. Hypertension. PLAN: 1. Continue fluids and insulin drip. 2. Continue to monitor electrolytes along with creatinine and blood sugar. 3. Continue current antimicrobial regimen. 4. Spontaneous breathing trial. Work toward extubation as tolerated. 5. DVT prophylaxis. 6. Enteral feedings. 7. Case discussed with mother of patient, nurse, charge nurse, and Respiratory. Greater than 35 minutes in direct critical care time. Joseph Ch MD [facility]/MODL /[id number]
[2019-07-24 11:19] LABS: ABG HCO3 13 mmol/L (23-28); ABG PCO2 27 mmHg (41-51); ABG PH 7.29 (7.31-7.41)
[2019-07-24] MEDS ORDERED: FUROSEMIDE INJ 10 MG/ML 2 ML VIAL IV ONE (12:15)
[2019-07-24] MEDS ORDERED: POTASSIUM CHLORIDE 20MEQ/100ML 100 ML IV ONE (12:15)
[2019-07-24] MEDS ORDERED: POTASSIUM CHLORIDE 20MEQ/15ML UDC NG ONE (12:30)
[2019-07-24] MEDS ORDERED: INSULIN REGULAR, HUMAN 100 UNITS in SODIUM CHLORIDE 0.45% 100 ML IV PRN ×2 (12:45)
--- NOTE | 2019-07-24 13:05 | Diagnostic Imaging Report ---
Exam: KUB - 2 views Indication: Tube placement Comparison: Chest radiograph 07/23/2019 Findings: Enteric tube projects over the very top of the image, likely in the stomach. Nonobstructive bowel gas pattern. No free air. No acute osseous injury. Impression: Enteric tube projects over the very top of the image, likely in the stomach. Signed by: Frantz Singer MD on 07/24/2019 1:01 PM
[2019-07-24 13:19] LABS: ANION GAP 21.3 mmol/L (8-16); CALCIUM 7.7 mg/dL (8.4-10.2); CREATININE, SERUM 1.55 mg/dL (0.72-1.25); MAGNESIUM 2.1 MG/DL (1.3-2.1); POTASSIUM 3.3 mmol/L (3.5-5.1)
[2019-07-24] MEDS ORDERED: DEXTROSE 50% SYRINGE 50 ML IV PRN (14:00)
[2019-07-24 14:08] LABS: CHOL/HDL RATIO 4.1 (3.9-4.7)
[2019-07-24 14:28] LABS: FREE T4 (FREE THYROXINE) 1.06 ng/dL (0.8-1.8); THYROID STIMULATING HORMONE 0.17 uIU/mL (0.350-4.940)
--- NOTE | 2019-07-24 14:37 | Diagnostic Imaging Report ---
Exam: KUB - 2 views Indication: Feeding tube placement Comparison: KUB of earlier the same day Findings: Enteric tube terminates in the stomach. EKG leads overlie the chest. Impression: Enteric tube terminates in the stomach. Signed by: Frantz Singer MD on 07/24/2019 2:34 PM
[2019-07-24 14:38] LABS: BILIRUBIN,URINE NEGATIVE (NEGATIVE); COLOR,URINE YELLOW (YELLOW); KETONES,URINE 2+ (NEGATIVE); LEUKOCYTE ESTERASE ,URINE NEGATIVE (NEGATIVE); NITRITE,URINE NEGATIVE (NEGATIVE); PROTEIN,URINE DIPSTICK NEGATIVE (NEGATIVE); URINE UROBILINOGEN 0.2 mg/dL (0.2 - 1)
[2019-07-24] MEDS: ASPIRIN 81 MG CHEW TAB PO SCH (14:49)
[2019-07-24] MEDS: OSELTAMIVIR PHOSPHATE 75 MG CAP PO SCH ×2 (14:49→19:54)
[2019-07-24] MEDS: METOPROLOL TARTRATE 25 MG TAB PO SCH (14:50)
[2019-07-24 14:57] LABS: CLARITY,URINE SL CLOUDY (CLEAR); RBC,URINE 0-5 /HPF (0-5)
[2019-07-24 14:58] LABS: AMORPHOUS SEDIMENT,URINE RARE (FEW); BACTERIA,URINE FEW /HPF; EPITHELIAL CELLS,URINE RARE /LPF; MUCUS,URINE RARE (RARE); URIC ACID CRYSTALS,URINE FEW (FEW)
--- NOTE | 2019-07-24 16:04 | Operative Report ---
DATE OF PROCEDURE: SURGEON: Joseph Ch MD PROCEDURES: Central line placement under ultrasound guidance. PREOPERATIVE DIAGNOSIS: Diabetic ketoacidosis. POSTOPERATIVE DIAGNOSIS: Diabetic ketoacidosis. CONSENT: Consent was considered emergent because of life-threatening acidosis, hyperglycemia, and respiratory failure. ANESTHESIA: 1% lidocaine for local anesthesia and Diprivan for sedation. DESCRIPTION OF PROCEDURE: The patient was placed in the supine position. The right lateral neck was prepped sterilely with chlorhexidine. The right neck was anesthetized with 1% lidocaine. An ultrasound machine was used to locate the right internal jugular vein. The vein was cannulated under direct visualization with a 16-gauge needle. A wire was then passed through the needle. A dilator was used to dilate the skin over the wire and a triple-lumen catheter was placed over the wire by the Seldinger technique. All the ports flushed. COMPLICATIONS: None. ESTIMATED BLOOD LOSS: None. Joseph Ch MD [facility]/MODL /[id number]
--- NOTE | 2019-07-24 16:04 | Consultation ---
DATE OF CONSULTATION: Pulmonary Critical Care Consultation CHIEF COMPLAINT: Bilateral lower lobe infiltrates, respiratory failure, and acidosis. HISTORY OF PRESENT ILLNESS: The patient is a 48-year-old man. He has a history of prior coronary artery disease. He had a myocardial infarction and a stent placed three years ago. He also has a history of diabetes. Over the past several days, he has been febrile. He has reported some cough. He came to the emergency department on the 15 of July and again on the . He reported some increased urination as well as some polydipsia. He received some fluids and was sent home with antibiotics. He returns today with worsening malaise. He has polydipsia and polyuria. Apparently, he had trouble breathing in the emergency department and required endotracheal intubation. He also had elevated lactic acid and received a 30 mL/kg fluid bolus. Electrolytes also showed a bicarbonate of 5 and an elevated blood sugar of 579, consistent with diabetic ketoacidosis. PAST SURGICAL HISTORY: Status post endocardial stent. PAST MEDICAL HISTORY: 1. Diabetes. 2. Hypertension. 3. Coronary artery disease. SOCIAL HISTORY: The patient was a prior smoker. He does not smoke anymore. He is not a drinker. There is no recent travel. He denies any contacts with anyone who has been ill. ALLERGIES: HE HAS NO KNOWN DRUG ALLERGIES. FAMILY HISTORY: Noncontributory. REVIEW OF SYSTEMS: He did have some fevers. He has no headache. He is not having any neck pain. He denies any chest pain. He did have difficulty breathing as well as cough. He has no abdominal pain. He has no nausea or vomiting. He does not have any leg edema. He does have polyuria and polydipsia. PHYSICAL EXAMINATION: VITAL SIGNS: The patient is afebrile, the blood pressure is 119/68, saturation is 100%. GENERAL: He is currently on an assist-control mode of ventilation. He is also on an insulin drip. HEENT: Shows no facial swelling or erythema. There is an oral endotracheal tube in place. There is a right IJ line. The site looks clean. There is no drainage. CARDIAC: Reveals regular rate and rhythm with a normal S1 and S2. LUNGS: Auscultation of lungs reveals a few crackles at the bases. There is no wheezing. ABDOMEN: Soft, nontender. There is no rebound or guarding. EXTREMITIES: Show no leg edema or calf tenderness. There is no cyanosis or clubbing. SKIN: Shows no rashes. NEUROLOGICAL: Shows no focal abnormalities. He is sedated on Diprivan. LABORATORY DATA: Carbon dioxide is 5 with an anion gap of 36. His BUN is 29 and his creatinine is 2.03. Magnesium is 2.5. Albumin is 3.6 and total protein is 9.1. His hemoglobin was 18.1, his white blood cell count was 14.1, and his platelet count was 301. RADIOGRAPHIC DATA: CT scan of the chest shows peripheral predominantly lower lobe ground-glass opacities with some focal consolidation. Findings are consistent with atypical pneumonia. IMPRESSION: 1. Diabetic ketoacidosis. 2. Acute respiratory failure. 3. Atypical pneumonia. 4. Coronary artery disease. PLAN: 1. The patient will continue to receive intravenous fluids. 2. Continue insulin drip according to the DKA protocol. 3. Broad-spectrum antibiotics to cover for community-acquired pneumonia along with appropriate intravenous fluids for sepsis. 4. Nasopharyngeal aspirate with PCR testing for respiratory viral panel including cohen virus. Joseph Ch MD [facility]/MODL /[id number]
[2019-07-24 16:24] LABS: ALBUMIN 2.4 g/dL (3.5-5.0); ALBUMIN/GLOBULIN RATIO 0.6 (0.8-2.0); ANION GAP 21.5 mmol/L (8-16); CALCIUM 7.8 mg/dL (8.4-10.2); CREATININE, SERUM 1.7 mg/dL (0.72-1.25); POTASSIUM 3.5 mmol/L (3.5-5.1)
[2019-07-24] MEDS ORDERED: SODIUM CHLORIDE 0.45% 1,000 ML ONE (18:31)
[2019-07-24] MEDS: SODIUM CHLORIDE 0.45% 1,000 ML IV SCH (18:59)
--- NOTE | 2019-07-24 19:50 | Consultation ---
DATE OF CONSULTATION: 07/24/2019 Endocrine Consultation This is a patient of Dr. Aguirre. HISTORY OF PRESENT ILLNESS: This patient came to the hospital with history of cough, chest congestion. He was put on the ventilator. He has history of pneumonia. The patient is a known diabetic for last several years and has been on and off the insulin. The last list of medications we have he was put on Farxiga about 10 mg once daily. The patient was in and out of the ERs and left against medical advice according to the nurses reports. He has also history of longstanding hypertension, hyperlipidemia, coronary artery disease, and stent placement in the past. According to the last list, he has not been taking insulin, but only Farxiga. His other routine medications include Plavix, amlodipine, Lotrel, and was put on prednisone for bronchitis and chest condition. PHYSICAL EXAMINATION: GENERAL: The patient is sedated at this time. He is on the ventilator. VITAL SIGNS: His heart rate is around 107, blood pressure is 132/73 mmHg. HEENT: Essentially unremarkable. Thyroid is barely palpable. Clinically, he is near euthyroid. CHEST: Bilateral bronchospasm and basilar rales. CARDIOVASCULAR: First and second heart sounds. There is no 3rd or 4th heart sound. Ejection systolic murmur is grade 2/6. EXTREMITIES: The patient has evidence of diabetic sensory neuropathy in both lower extremities. CLINICAL IMPRESSION: 1. Diabetes mellitus, probably type 1. Diabetic ketoacidosis could be related to sepsis or could be related to the Farxiga, SGLT2 inhibitors. 2. Pneumonia, rule out viral infections. 3. Coronary artery disease, status post stent placement. 4. Hypertension. 5. Hyperlipidemia. 6. The patient has acute respiratory failure, on the vent. PLAN: At this time is to monitor his blood sugars closely. I put him on very aggressive insulin drip protocol. IV fluids. We will do a glycohemoglobin thyroid function test. Thank you for referring this patient. I will be following this patient with you. MD KLAUS Donald/MODL /[id number]
--- NOTE | 2019-07-24 19:55 | Consultation ---
DATE OF CONSULTATION: 07/24/2019 REASON FOR CONSULTATION: Respiratory insufficiency; requested by Dr. Jaylin Ch. HISTORY: The patient is intubated and cannot give a history. By report, he is an insulin dependent diabetic, who developed dyspnea over the past several weeks. Apparently came to the emergency room about a week ago with dyspnea. He was given oral antibiotics. He returned several days later, quite short of breath in DKA, required intubation, and is now in the Intensive Care Unit on increasing levels of respiratory support. Current FiO2 is 70% and was increased from 50% earlier today. CT scan has a ground-glass appearance of the lungs. COVID-19 testing has been ordered and is pending. Cultures are so far negative. Evaluation is required. REVIEW OF SYSTEMS: Unobtainable. PAST MEDICAL HISTORY: Positive for insulin-dependent diabetes. MEDICATIONS AT HOME: Insulin, other medications unclear. ALLERGIES: NONE KNOWN. SOCIAL HISTORY: Unknown. MEDICATIONS IN THE HOSPITAL: Multiple including piperacillin and tazobactam, azithromycin, vancomycin, fentanyl, valsartan, propofol. FAMILY HISTORY: Unclear. PHYSICAL EXAMINATION: GENERAL: The patient is intubated in the ICU, on isolation precautions. VITAL SIGNS: Blood pressure 120/70. Pulse 100 and regular. O2 saturations 97%. CARDIAC: Shows a regular rate and rhythm. LUNGS: Coarse ventilator sounds bilaterally. ABDOMEN: Hypoactive bowel sounds. EXTREMITIES: No cyanosis, clubbing, or edema. VASCULAR: Carotids 2+/2+ bilaterally. Radials and femorals 2+/2+ bilaterally. SKIN: No rashes or nonhealing ulcers. MUSCULOSKELETAL: Full range of motion at all joints. No joint swelling. NEUROLOGIC: Intubated and sedated. LABORATORY: Chest x-ray and CT scan as above. White count is 10.3, platelet count 159. INR 1.18 with PT 15.8. Sodium 146, potassium 3.8, BUN 26, creatinine 1.5. Liver function tests are normal. IMPRESSION: Severe respiratory insufficiency. I have reviewed the case with Dr. Ch. Increased level of care may be necessary. Phu Garcia MD [facility]/MODL /[id number]
--- NOTE | 2019-07-24 20:05 | Consultation ---
DATE OF CONSULTATION: REASON FOR CONSULTATION: Pneumonia. HISTORY OF PRESENT ILLNESS: This patient, who is a 48-year-old gentleman, who comes to the emergency room with shortness of breath, cough, and fever. The patient is intubated. The patient, who had history of coronary artery disease, myocardial infarction, had stent placed, history of diabetes mellitus, in the past few days has been having progressive shortness of breath with fever and chills and cough. The patient went to emergency room, was given oral antibiotic and discharged, coming back with worsening condition. He is currently intubated. No family. The patient, who does have history of diabetes mellitus, hypertension, and coronary artery disease. He used to be a smoker, but not recently. There is no family for me to interview when the patient was admitted. Blood cultures obtained and we were in the amid of fear for COVID-19. LABORATORY STUDIES: When he first came, his white count was 14, came down to 10, hemoglobin 18. The differential showed 88% segs. Sodium 146, potassium 3.5 with a creatinine 1.70. His blood gas; 6.92, pCO2 32 on FiO2 100%. He had CT of the chest and chest x-ray showed extensive bilateral peripheral lobe ground-glass opacities with areas of focal consolidation. PHYSICAL EXAMINATION: GENERAL: He is currently intubated and sedated. VITAL SIGNS: Temperature is 97.2. HEENT: Normocephalic. CHEST: Few crackles. COR: S1 and S2. No S3, S4, or murmur. ABDOMEN: Soft. IMPRESSION: 1. Sepsis on admission, pneumonia, community-acquired. 2. Cmggt-dq-[id number] disease. We put him on vancomycin and Zosyn. We will also add Tamiflu since there is also prevalence of influenza at present time and azithromycin. Obtain sputum for cultures and blood cultures. Obtain Legionella and mycoplasma. Obtain viral panel by PCR, COVID by PCR. I think it is going to be more bacterial sepsis and infection. We will follow. MD SHANNAN Jaramillo/JAGDISH /[id number]
[2019-07-24] MEDS: AZITHROMYCIN 500MG/NS 250 ML 250 ML IV SCH (23:04)
[2019-07-25] VITALS (26 sets, daily range): BP systolic 94–161; BP diastolic 61–92
[2019-07-25 00:15] LABS: ANION GAP 15.2 mmol/L (8-16); CALCIUM 7.8 mg/dL (8.4-10.2); CREATININE, SERUM 1.89 mg/dL (0.72-1.25); POTASSIUM 3.2 mmol/L (3.5-5.1)
[2019-07-25] MEDS: VANCOMYCIN 1GM/NS 250 ML 250 ML IV SCH ×2 (00:26→23:51)
[2019-07-25] MEDS: PROPOFOL IV EMULSION 10MG/ML 100 ML IV SCH ×7 (00:27→23:53)
[2019-07-25] MEDS: SODIUM CHLORIDE 0.45% 1,000 ML IV SCH ×2 (00:56→07:20)
[2019-07-25 04:28] LABS: BASOPHILS % 0.1 % (0.0-1.0); HEMATOCRIT 37.4 % (38.2-49.6); HEMOGLOBIN 12.9 g/dL (14.0-18.0); LYMPHOCYTES # (AUTO) 0.7 (1.0-3.2); LYMPHOCYTES % 9.1 % (18.0-39.1); MEAN CORPUSCULAR HEMOGLOBIN 31.2 pg (28-32); MEAN CORPUSCULAR HGB CONC 34.5 g/dL (31-35); MONOCYTES # (AUTO) 0.4 (0.2-0.8); MONOCYTES % 5.7 % (4.4-11.3); NEUTROPHILS # (AUTO) 6.3 (2.1-6.9); PLATELET COUNT 129 x10e3/uL (140-360); RED BLOOD COUNT 4.14 x10e6/uL (4.3-5.7); RED CELL DISTRIBUTION WIDTH 12.4 % (11.7-14.4)
[2019-07-25 04:56] LABS: ALBUMIN 2.1 g/dL (3.5-5.0); ALBUMIN/GLOBULIN RATIO 0.6 (0.8-2.0); ANION GAP 10.3 mmol/L (8-16); CALCIUM 7.7 mg/dL (8.4-10.2); CREATININE, SERUM 1.44 mg/dL (0.72-1.25); POTASSIUM 3.3 mmol/L (3.5-5.1)
[2019-07-25 04:57] LABS: MEAN CORPUSCULAR VOLUME 90.3 fL (81-99)
[2019-07-25] MEDS: PIPER-TAZ 3.375 GM 50 ML IV SCH ×3 (06:18→21:27)
[2019-07-25] MEDS: POTASSIUM CHLORIDE 20MEQ/100ML 100 ML IV PRN ×2 (07:23→22:26)
[2019-07-25] MEDS: VALSARTAN 160 MG TAB PO SCH (08:17)
[2019-07-25] MEDS: CLOPIDOGREL BISULFATE 75 MG TAB PO SCH (08:17)
[2019-07-25] MEDS: ASPIRIN 81 MG CHEW TAB PO SCH (08:17)
[2019-07-25] MEDS: OSELTAMIVIR PHOSPHATE 75 MG CAP PO SCH ×2 (08:17→21:27)
[2019-07-25] MEDS: METOPROLOL TARTRATE 25 MG TAB PO SCH ×2 (08:17→17:00)
[2019-07-25] MEDS ORDERED: METOPROLOL TARTRATE 25 MG TAB PO SCH (09:00)
[2019-07-25] MEDS ORDERED: METOPROLOL TARTRATE 25 MG TAB NG SCH (09:00)
--- NOTE | 2019-07-25 09:08 | Diagnostic Imaging Report ---
EXAMINATION: CHEST SINGLE (PORTABLE) INDICATION: Respiratory failure COMPARISON: Chest radiograph 07/23/2019, chest CT 07/23/2019 FINDINGS: LINES/TUBES:Endotracheal tube terminates 4 cm above the georgi. Enteric tube terminates in the stomach. Right IJ central venous catheter terminates at the superior cavoatrial junction. LUNGS:The lungs are moderately inflated, slightly improved from the prior study of 07/23/2019. Persistent bilateral hazy and patchy airspace opacities. PLEURA:No pleural effusion or pneumothorax. MEDIASTINUM:The cardiomediastinal silhouette appears normal in size and shape. BONES/SOFT TISSUES:No acute osseous injury. ABDOMEN:No free air under the diaphragm. IMPRESSION: Slightly improved lung aeration. No significant change in persistent bilateral airspace opacities when accounting for differences in lung volume. Signed by: Frantz Singer MD on 07/25/2019 9:05 AM
[2019-07-25 10:28] LABS: PLATELET ESTIMATE SLIGHTLY DECREASED; PLATELET MORPHOLOGY COMMENT NORMAL; RBC MORPHOLOGY COMMENT NORMAL
[2019-07-25 11:15] LABS: ABG BASE EXCESS -4.3 mmol/L (-2 - 3); ABG HCO3 20 mmol/L (23-28); ABG PCO2 35 mmHg (41-51); ABG PH 7.38 (7.31-7.41)
[2019-07-25 11:16] LABS: ABG PO2 216 mmHg (80-105)
[2019-07-25 11:17] LABS: ABG OXYGEN SATURATION 99.4 % (95-98)
[2019-07-25] MEDS: FENTANYL CITRATE INJ 2,000 MCG in SODIUM CHLORIDE 0.9% 250ML 210 ML IV PRN (12:00)
[2019-07-25] MEDS ORDERED: CISATRACURIUM BESYLATE 100 MG in SODIUM CHLORIDE 0.9% 100 ML 100 ML IV PRN (13:45)
[2019-07-25] MEDS ORDERED: ROCURONIUM BROMIDE 10 MG/ML 5ML VIAL IV ONE ×2 (13:55→14:00)
[2019-07-25] MEDS: DEXTROSE 5% 1,000 ML IV SCH (14:45)
--- NOTE | 2019-07-25 15:34 | Progress Note ---
DATE: 07/25/2019 Pulmonary Critical Care Consultation. SUBJECTIVE: The patient has remained on the ventilator overnight. It was decreased to 50% oxygen and 10 of PEEP this morning, but had to be increased back to 60% and 12 of PEEP this afternoon. He is no longer in diabetic ketoacidosis. His fluids will be switched to correct his free water deficit. He will also be started on enteral feedings. PHYSICAL EXAMINATION: VITAL SIGNS: Blood pressure is 110/70 and the saturation is now 92%. He is on a rate of 20 with tidal volume of 450 and PEEP of 12. His FiO2 is set at 60%. HEENT: No facial swelling or erythema. He has an oral endotracheal tube. He has a nasogastric tube. His IJ line in place. The site looks clean. CARDIAC: Reveals regular rate and rhythm with normal S1, S2. LUNGS: Auscultation of lungs reveals crackles at the bases. There is no wheezing. ABDOMEN: Soft, nontender. There is no rebound or guarding. EXTREMITIES: Shows no leg edema or calf tenderness. There is no cyanosis or clubbing. SKIN: Shows no rashes. NEUROLOGICAL: Shows the patient to be sedated. LABORATORY DATA: Sodium is 147, potassium is 3.3. The BUN to creatinine ratio is 23 to 1.44, and the glucose is 125. The albumin is 2.1. The white blood cell count is 7.4 and hemoglobin is 12.9. The platelet count is 129. The PT is 15.8 and the INR is 1.18. RADIOGRAPHIC DATA: Chest x-ray shows slightly improved lung aeration. There are still persistent bilateral infiltrates. IMPRESSION: 1. Acute respiratory failure. 2. Atypical pneumonia. 3. Diabetic ketoacidosis. 4. Coronary artery disease. 5. Hypernatremia 6. Thrombocytopenia PLAN: 1. Continue ventilation with lung protective strategy. Repeat ABG. 2. There is a marked discrepancy between the oxygen saturation and the PO2 on the blood gas. This raises some concern for met-hemoglobinemia. We will obtain a hemoglobin level with the next blood gas. 3. Await culture results including viral serologies. 4. Continue insulin drip for now and begin enteral feedings. 5. Replace free water. 6. DVT prophylaxis. 7. Case discussed with Endocrinology, nursing, administration, and Respiratory. Greater than 90 minutes in direct critical care time during multiple visits throughout the day. MD RITA Moscoso/JAGDISH /[id number]
--- NOTE | 2019-07-25 18:19 | Progress Note ---
DATE: SUBJECTIVE: Mr. Gonsalez remains in intensive care unit slightly better today, intubated on oxygen 50%, PEEP of 10 went up to 60 earlier today. Cultures still pending. Respiratory viral panel still pending. His white count came down to 7.49, hemoglobin 12.9. His sodium 147, potassium 3.3 with creatinine came down from 1.89 to 1.44. His viral panel came back all negative. COVID-19 is still pending. The patient remains on propofol. His remains on Zosyn, Tamiflu, vancomycin, and azithromycin. PHYSICAL EXAMINATION: GENERAL: He is currently intubated, sedated. VITAL SIGNS: Temperature 100.2, heart rate 83, respirations 17, blood pressure 110/69. HEENT: Normocephalic. CHEST: Few rhonchi bilateral. COR: S1, S2. No murmurs. ABDOMEN: Soft. Bowel sounds present. EXTREMITIES: No edema. IMPRESSION: 1. Respiratory failure. 2. Pneumonia, community acquired, atypical. We still waiting COVID-19, rule out possibility of mycoplasma and Legionella chlamydia. 3. Diabetes mellitus. 4. Diabetic ketoacidosis. 5. Coronary artery disease. Consider echocardiogram. Continue antibiotic as ordered. Continue supportive care as ordered. Clinically seems to be better. We will follow. Danni Borges MD [facility]/MODL /[id number]
[2019-07-25] MEDS: INSULIN REGULAR, HUMAN 3ML VL 100 UNIT in SODIUM CHLORIDE 0.9% 100 ML IV SCH ×2 (18:23)
[2019-07-25 21:53] LABS: ANION GAP 9.2 mmol/L (8-16); BLOOD UREA NITROGEN 17 mg/dL (7-26); BUN/CREATININE RATIO 15 (6-25); CALCIUM 7.6 mg/dL (8.4-10.2); CARBON DIOXIDE 22 mmol/L (22-29); CHLORIDE 118 mmol/L (98-107); EST GLOMERULAR FILTRATION RATE > 60 ML/MIN (60-); GLUCOSE 176 mg/dL (74-118); MAGNESIUM 2.3 MG/DL (1.3-2.1); POTASSIUM 3.2 mmol/L (3.5-5.1); SODIUM 146 mmol/L (136-145)
[2019-07-25] MEDS: AZITHROMYCIN 500MG/NS 250 ML 250 ML IV SCH (22:25)
[2019-07-26] VITALS (25 sets, daily range): BP systolic 82–183; BP diastolic 55–101
[2019-07-26 00:17] LABS: ABG HCO3 20 mmol/L (23-28); ABG PCO2 35 mmHg (41-51); ABG PH 7.37 (7.31-7.41)
[2019-07-26] MEDS: FENTANYL CITRATE INJ 2,000 MCG in SODIUM CHLORIDE 0.9% 250ML 210 ML IV PRN ×2 (01:52→17:35)
[2019-07-26] MEDS: PROPOFOL IV EMULSION 10MG/ML 100 ML IV SCH ×6 (03:22→21:55)
[2019-07-26] MEDS: DEXTROSE 5% 1,000 ML IV SCH (03:22)
[2019-07-26 05:41] LABS: BASOPHILS % 0.2 % (0.0-1.0); EOSINOPHILS % 0.2 % (0.0-6.0); HEMATOCRIT 34.9 % (38.2-49.6); HEMOGLOBIN 11.6 g/dL (14.0-18.0); LYMPHOCYTES # (AUTO) 0.7 (1.0-3.2); LYMPHOCYTES % 13.1 % (18.0-39.1); MEAN CORPUSCULAR HEMOGLOBIN 30.3 pg (28-32); MEAN CORPUSCULAR HGB CONC 33.2 g/dL (31-35); MEAN CORPUSCULAR VOLUME 91.1 fL (81-99); MONOCYTES # (AUTO) 0.2 (0.2-0.8); MONOCYTES % 4.1 % (4.4-11.3); NEUTROPHILS # (AUTO) 4.6 (2.1-6.9); NEUTROPHILS % 80.8 % (38.7-80.0); PLATELET COUNT 101 x10e3/uL (140-360); RED BLOOD COUNT 3.83 x10e6/uL (4.3-5.7); RED CELL DISTRIBUTION WIDTH 12.6 % (11.7-14.4)
[2019-07-26 05:58] LABS: ALANINE AMINOTRANSFERASE 31 IU/L (0-55); ALBUMIN 1.8 g/dL (3.5-5.0); ALBUMIN/GLOBULIN RATIO 0.5 (0.8-2.0); ALKALINE PHOSPHATASE 182 IU/L (40-150); ANION GAP 7.4 mmol/L (8-16); BLOOD UREA NITROGEN 17 mg/dL (7-26); BUN/CREATININE RATIO 15 (6-25); CALCIUM 7.6 mg/dL (8.4-10.2); CARBON DIOXIDE 22 mmol/L (22-29); CHLORIDE 119 mmol/L (98-107); CREATININE, SERUM 1.11 mg/dL (0.72-1.25); EST GLOMERULAR FILTRATION RATE > 60 ML/MIN (60-); GLUCOSE 209 mg/dL (74-118); POTASSIUM 3.4 mmol/L (3.5-5.1); SODIUM 145 mmol/L (136-145)
[2019-07-26 06:25] LABS: ANION GAP 7.4 mmol/L (8-16); BLOOD UREA NITROGEN 17 mg/dL (7-26); BUN/CREATININE RATIO 16 (6-25); CALCIUM 7.6 mg/dL (8.4-10.2); CARBON DIOXIDE 22 mmol/L (22-29); CHLORIDE 119 mmol/L (98-107); CREATININE, SERUM 1.08 mg/dL (0.72-1.25); EST GLOMERULAR FILTRATION RATE > 60 ML/MIN (60-); GLUCOSE 207 mg/dL (74-118); MAGNESIUM 2.3 MG/DL (1.3-2.1); POTASSIUM 3.4 mmol/L (3.5-5.1); SODIUM 145 mmol/L (136-145)
[2019-07-26] MEDS: PIPER-TAZ 3.375 GM 50 ML IV SCH ×3 (06:55→21:30)
[2019-07-26] MEDS: POTASSIUM CHLORIDE 20MEQ/100ML 100 ML IV PRN (08:00)
[2019-07-26 08:13] LABS: ANISOCYTOSIS SLIGHT; LYMPHOCYTES % (MANUAL) 12 % (19-48); METAMYELOCYTES % (MANUAL) 1 % (0-0); MONOCYTES % (MANUAL) 4 % (3.4-9.0); NEUTROPHILS % (MANUAL) 83 % (40-74); PLATELET ESTIMATE SLIGHTLY DECREASED; PLATELET MORPHOLOGY COMMENT NORMAL; RBC MORPHOLOGY COMMENT ABNORMAL; TOXIC GRANULATION SLIGHT
[2019-07-26] MEDS: CLOPIDOGREL BISULFATE 75 MG TAB PO SCH (08:30)
[2019-07-26] MEDS: OSELTAMIVIR PHOSPHATE 75 MG CAP PO SCH ×2 (08:30→20:47)
[2019-07-26] MEDS: METOPROLOL TARTRATE 25 MG TAB PO SCH ×2 (08:30→16:04)
[2019-07-26] MEDS ORDERED: FUROSEMIDE INJ 10 MG/ML 2 ML VIAL IV ONE (08:30)
[2019-07-26] MEDS: ASPIRIN 81 MG CHEW TAB PO SCH (08:31)
[2019-07-26] MEDS: VALSARTAN 160 MG TAB PO SCH (08:31)
--- NOTE | 2019-07-26 09:23 | Diagnostic Imaging Report ---
EXAMINATION: CHEST SINGLE (PORTABLE) INDICATION: Respiratory failure COMPARISON: Chest radiograph 07/25/2019, chest CT 07/23/2019 FINDINGS: LINES/TUBES:Endotracheal tube terminates 5.2 cm above the georgi. Enteric tube terminates in the stomach. Right IJ central venous catheter terminates at the cavoatrial junction. LUNGS:The lungs are moderately inflated. Persistent bilateral hazy and patchy airspace opacities. PLEURA:No pleural effusion or pneumothorax. MEDIASTINUM:The cardiomediastinal silhouette appears normal in size and shape. BONES/SOFT TISSUES:No acute osseous injury. ABDOMEN:No free air under the diaphragm. IMPRESSION: Unchanged bilateral interstitial and patchy airspace opacities, which may represent multifocal pneumonia. Signed by: Dr. Lamar Perla MD on 07/26/2019 9:20 AM
[2019-07-26] MEDS: ACETAMINOPHEN 325 MG TAB PO PRN ×2 (09:28→16:04)
[2019-07-26 09:29] LABS: INR 1.02
[2019-07-26 09:30] LABS: PARTIAL THROMBOPLASTIN TIME 34.8 seconds (23.8-35.5)
[2019-07-26] MEDS ORDERED: LORAZEPAM INJ 2 MG/ML VIAL IV NR ×2 (10:45→15:31)
[2019-07-26] MEDS: LORAZEPAM INJ 2 MG/ML VIAL IV SCH ×3 (14:28→21:30)
[2019-07-26] MEDS: CISATRACURIUM BESYLATE 100 MG in SODIUM CHLORIDE 0.9% 100 ML 100 ML IV SCH ×2 (14:37→21:39)
--- NOTE | 2019-07-26 16:12 | Progress Note ---
DATE: Pulmonary Critical Care Progress Note SUBJECTIVE: The patient has remained on mechanical ventilation overnight. He desaturated this morning while off Diprivan. He had to be restarted on Diprivan and given additional Ativan. He remains on an assist-control mode of ventilation with a tidal volume of 430 and rate of 18. His PEEP is set at 14 and his FiO2 is set at 65%. PHYSICAL EXAMINATION: VITAL SIGNS: The T-max last night was 102, his temperature now is 100.7; his blood pressure is 124/81; and he is saturating 98%. He is on assist control at rate of 18 with a tidal volume of 430, and the oxygen of 65%. His PEEP is set at 14. He is on a propofol drip at 50 mcg per kg per minute along with low-dose fentanyl. GENERAL: He is also receiving enteral feedings. He has a IJ line in place. The site looks clean. He has an oral endotracheal tube in place. CARDIAC: Reveals a regular rate and rhythm with normal S1, S2. LUNGS: Auscultation of lungs reveals crackles at the bases. There is no wheezing. ABDOMEN: Soft and nontender. There is no rebound or guarding. EXTREMITIES: Show no leg edema or calf tenderness. There is no cyanosis or clubbing. SKIN: Shows no rashes. NEUROLOGIC: Shows no focal abnormalities. LABORATORY DATA: White blood cell count is 5.6, hemoglobin is 11.6, and the platelet count is 101. The BUN-creatinine ratio is 17-1.08 and the blood sugar is 170. His fibrinogen is normal as are his PT and PTT. RADIOGRAPHIC DATA: Chest x-ray shows bilateral infiltrates. IMPRESSION: 1. Atypical pneumonia with severe sepsis, present on admission. 2. Acute respiratory failure. 3. Diabetic ketoacidosis. 4. Coronary artery disease. 5. Thrombocytopenia. PLAN: 1. Continue sedation with Diprivan. Also, begin Ativan q.4. 2. Continue lung protective strategy with PEEP of 14 and tidal volume of 430 mL. 3. Consider paralysis, with Nimbex. 4. Continue enteral feedings. 5. Continue current antibiotics. 6. Continue insulin drip for now and discuss with Endocrine. 7. Continue DVT prophylaxis. 8. Await culture results and viral serology. 9. Case discussed with nursing, respiratory, and Infectious Disease and his mother. Greater than 90 minutes in direct critical care time over multiple visits during the day. MD RITA Moscoso/JAGDISH /[id number]
--- NOTE | 2019-07-26 18:08 | Consultation ---
DATE OF CONSULTATION: 07/26/2019 REASON FOR CONSULT: Respiratory insufficiency. REQUESTING PHYSICIAN: Requestd by Dr. Jaylin Ch. ARTIFICIAL SNOW MAKING MACHINE OPERATOR: Hai Aguirre M.D. SUBJECTIVE: The patient remains on ventilatory support. FiO2 60%. Relatively stable clinically. OBJECTIVE: Chest x-ray, unchanged. FiO2 60%. Tube feeding started. PEEP 14. FiO2 at 65% on the ventilator. VITAL SIGNS: Temperature 102. Blood pressure 115/70. O2 saturation 95%. GENERAL: Intubated and sedated. Tube feedings ongoing. CARDIAC: Regular rate and rhythm. Normal S1, S2. LUNGS: Coarse ventilator sounds bilaterally. ABDOMEN: Hypoactive bowel sounds. Soft, nontender. EXTREMITIES: No cyanosis, clubbing, or edema. Well perfused. SKIN: No rashes. NEUROLOGIC: Sedated and intubated. LABORATORY DATA: White count 5.6, hemoglobin 11.6, hematocrit 34.9, and platelet count 101,000. Sodium 145, potassium 3.4, BUN 17, creatinine 1.1. INR 1.18. RADIOGRAPHIC DATA: Chest x-ray shows appropriately placed endotracheal tube, bilateral hazy and patchy airspace opacities, which are stable. IMPRESSION AND PLAN: Slight improvement with decrease in FiO2. We will follow. Phu Garcia MD [facility] /[id number]
--- NOTE | 2019-07-26 18:28 | Progress Note ---
DATE: Internal Medicine Progress Note SUBJECTIVE: The patient is on the ventilator due to respiratory failure, aspiration pneumonia. OBJECTIVE: HEART: Showed regular rhythm. Normal S1, S2 sounds. LUNGS: Clear bilaterally. FINAL IMPRESSION: 1. Acute respiratory failure. 2. Sepsis. 3. Bilateral pneumonia. 4. Diabetic ketoacidosis. PLAN OF TREATMENT: Continue current IV antibiotic therapy. Continue antiviral treatment with Tamiflu. Continue ventilator support. Continue the IV insulin drip protocol as per Dr. Chua, associate professor of library media. Blood culture so far is negative. We are waiting for the coronavirus, COVID-19 test to be ready. The patient in the meantime contact respiratory isolation. Prognosis is guarded right now. The patient is ventilatory dependent at this point in time due to the bilateral pneumonia. Influenza A and B are negative and blood cultures are negative for any growth so far. Case has been discussed with the nurse at the bedside. Time spent around 35 minutes in reviewing all the intelligence consultant reports, blood work, medications list, and discussion with the nursing staff. Rodney Del Rio MD [facility] /[id number]
[2019-07-26] MEDS: INSULIN GLARGINE 100 UNITS/ML VIAL SQ SCH (20:47)
[2019-07-26] MEDS: AZITHROMYCIN 500MG/NS 250 ML 250 ML IV SCH (23:21)
[2019-07-27] VITALS (26 sets, daily range): BP systolic 89–170; BP diastolic 62–104
[2019-07-27] MEDS: VANCOMYCIN 1GM/NS 250 ML 250 ML IV SCH (00:25)
[2019-07-27] MEDS: LORAZEPAM INJ 2 MG/ML VIAL IV SCH ×6 (02:09→21:51)
[2019-07-27] MEDS: PROPOFOL IV EMULSION 10MG/ML 100 ML IV SCH ×5 (03:25→20:00)
[2019-07-27] MEDS: CISATRACURIUM BESYLATE 100 MG in SODIUM CHLORIDE 0.9% 100 ML 100 ML IV SCH (04:30)
[2019-07-27 05:16] LABS: BASOPHILS # (AUTO) 0.1 (0.0-0.1); BASOPHILS % 0.7 % (0.0-1.0); EOSINOPHILS # (AUTO) 0.1 (0.0-0.4); HEMATOCRIT 39.3 % (38.2-49.6); HEMOGLOBIN 12.7 g/dL (14.0-18.0); LYMPHOCYTES # (AUTO) 0.8 (1.0-3.2); LYMPHOCYTES % 10.2 % (18.0-39.1); MEAN CORPUSCULAR HEMOGLOBIN 30.2 pg (28-32); MEAN CORPUSCULAR HGB CONC 32.3 g/dL (31-35); MEAN CORPUSCULAR VOLUME 93.6 fL (81-99); MONOCYTES # (AUTO) 0.4 (0.2-0.8); MONOCYTES % 5.4 % (4.4-11.3); NEUTROPHILS # (AUTO) 6.1 (2.1-6.9); NEUTROPHILS % 79.2 % (38.7-80.0); PLATELET COUNT 95 x10e3/uL (140-360); RED CELL DISTRIBUTION WIDTH 12.6 % (11.7-14.4)
[2019-07-27 05:42] LABS: ALANINE AMINOTRANSFERASE 47 IU/L (0-55); ALBUMIN 1.7 g/dL (3.5-5.0); ALBUMIN/GLOBULIN RATIO 0.4 (0.8-2.0); ALKALINE PHOSPHATASE 215 IU/L (40-150); ANION GAP 7.7 mmol/L (8-16); BLOOD UREA NITROGEN 15 mg/dL (7-26); BUN/CREATININE RATIO 20 (6-25); CARBON DIOXIDE 25 mmol/L (22-29); CHLORIDE 120 mmol/L (98-107); CREATININE, SERUM 0.75 mg/dL (0.72-1.25); EST GLOMERULAR FILTRATION RATE > 60 ML/MIN (60-); GLUCOSE 134 mg/dL (74-118); POTASSIUM 3.7 mmol/L (3.5-5.1); SODIUM 149 mmol/L (136-145)
[2019-07-27] MEDS: PIPER-TAZ 3.375 GM 50 ML IV SCH (05:51)
[2019-07-27] MEDS: OSELTAMIVIR PHOSPHATE 75 MG CAP PO SCH ×2 (08:20→20:41)
[2019-07-27] MEDS: ASPIRIN 81 MG CHEW TAB PO SCH (08:20)
[2019-07-27] MEDS: FENTANYL CITRATE INJ 2,000 MCG in SODIUM CHLORIDE 0.9% 250ML 210 ML IV PRN ×2 (08:20→20:53)
[2019-07-27] MEDS: CLOPIDOGREL BISULFATE 75 MG TAB PO SCH (08:20)
[2019-07-27] MEDS: METOPROLOL TARTRATE 25 MG TAB PO SCH ×2 (09:00→16:35)
[2019-07-27] MEDS: VALSARTAN 160 MG TAB PO SCH (09:00)
--- NOTE | 2019-07-27 09:24 | Diagnostic Imaging Report ---
Examination: Single AP view of the chest. COMPARISON: Multiple prior studies INDICATION: Pneumonia DISCUSSION: Lines/tubes: Endotracheal tube in stable position. Enteric tube and right IJ catheter stable. Lungs: Stable bilateral groundglass opacities and more dense consolidation in the left lower lobe. Pleura: There is no pleural effusion or pneumothorax. Heart and mediastinum: The heart and the mediastinum are unremarkable. Bones and soft tissues: No acute bony abnormalities. IMPRESSION: 1. Stable bilateral groundglass opacities and more dense consolidation in the left lower lobe. Signed by: Dr. Ibrahima Vance M.D. on 07/27/2019 9:21 AM
--- NOTE | 2019-07-27 10:10 | Progress Note ---
DATE: Pulmonary Critical Care Progress Note SUBJECTIVE: The patient continues to have some fever. He required a cooling blanket last night. His oxygenation has improved and he is down to 50% with a PEEP of 14. He is still on assist control. The Nimbex has been stopped, but he remains on propofol and fentanyl for sedation. PHYSICAL EXAMINATION: VITAL SIGNS: The blood pressure is 92/70 and the pulse is 80. HEENT: Shows no facial swelling or erythema. There is an oral endotracheal tube in place. There is an IJ line in place. The site looks clean. There is no drainage. CARDIAC: Reveals regular rate and rhythm with normal S1 and S2. RESPIRATORY: Auscultation of lungs reveal crackles at the bases. There is no wheezing. ABDOMEN: Soft and nontender. There is no rebound or guarding. EXTREMITIES: Show SCDs in place. LABORATORY DATA: Sodium is 149 and the BUN to creatinine ratio is 15 to 0.75. The glucose is 134. There is no anion gap and the carbon dioxide is normal. The total bilirubin is normal. The AST is 71 and the ALT is 47. Albumin is 1.7. Platelet count is 95 and the white blood cell count is 12.7. IMPRESSION: 1. Atypical pneumonia with severe sepsis, present on admission. 2. Acute respiratory failure. 3. Diabetic ketoacidosis. 4. Thrombocytopenia. 5. Hypernatremia. PLAN: 1. Continue current antibiotics as recommended by Infectious Disease. Await microbiological testing including serologies. 2. Continue enteral feedings. 3. Continue mechanical ventilation with lung protective strategy. The PEEP is currently of 14 and the FiO2 is at 50%. 4. Continue subcu insulin as needed. 5. Increase free water to correct hypernatremia. 6. Continue DVT prophylaxis. 7. Case discussed with Nursing, Respiratory, Infectious Disease, and mother. Greater than 35 minutes in direct critical care time. MD RITA Moscoso/JAGDISH /[id number]
[2019-07-27] MEDS ORDERED: ENOXAPARIN SOD INJ 40 MG/0.4 ML SYR SC SCH (11:00)
--- NOTE | 2019-07-27 13:41 | Progress Note ---
DATE: Internal Medicine Progress Note SUBJECTIVE: The patient is still on the ventilator. PHYSICAL EXAMINATION: VITAL SIGNS: Blood pressure 112/72, temperature 98.5, heart rate 87 per minute, respiratory rate 20 per minute, oxygen saturation 96%. HEART: Showed regular rhythm. Normal S1, S2 sound. LUNGS: Clear bilaterally. ABDOMEN: Soft. LABORATORY DATA: On the BMP; sodium of 149, potassium 3.7, chloride 120, CO2 25, BUN 15, creatinine 0.75, glucose 134. On the CBC; white blood count 7.64, hemoglobin 12.7, hematocrit 39.3, platelet count 95,000. PT 14.0, INR 1.02, PTT 34.8. AST 71, ALT 47, total bilirubin 0.3, alkaline phosphatase 215. FINAL IMPRESSION: 1. Acute respiratory failure secondary to bilateral pneumonia, clinically better. 2. Fever has been resolving. 3. Thrombocytopenia. 4. Diabetes mellitus type 2, uncontrolled. 5. Diabetes ketoacidosis. 6. History of coronary artery disease. PLAN OF TREATMENT: The patient will remain in contact respiratory isolation. Continue Zosyn. Continue Zithromax. Vancomycin is being discontinued by Infectious Disease. Continue Lipitor 20 mg daily, Plavix 75 mg daily. Continue Lantus 10 units at bedtime. Continue valsartan 160 mg daily. Continue Tamiflu 75 mg twice a day, Tylenol 650 mg q.4 hours 6 hours as needed, aspirin 81 mg daily, metoprolol 25 mg twice a day, and lorazepam 1 mg q.4 hours as needed. Labs have been reviewed so far. Blood cultures are negative. Influenza A and B negative. Coronavirus test is negative, except for COVID-19 which is still pending. The patient will remain in contact respiratory isolation in the meantime. MD COLT Carrero/JAGDISH /[id number]
[2019-07-27] MEDS: MEROPENEM 1GM 100 ML IV SCH ×2 (13:44→21:51)
[2019-07-27] MEDS ORDERED: ACETAMINOPHEN 1000 MG/100 ML IV NR (14:20)
[2019-07-27] MEDS: CISATRACURIUM BESYLATE 100 MG in SODIUM CHLORIDE 0.9% 100 ML 50 ML IV PRN ×2 (14:50→21:51)
[2019-07-27] MEDS: INSULIN REGULAR, HUMAN 3ML VL 100 UNIT in SODIUM CHLORIDE 0.9% 100 ML IV SCH ×2 (18:43)
[2019-07-27] MEDS: INSULIN GLARGINE 100 UNITS/ML VIAL SQ SCH (20:43)
[2019-07-27] MEDS: AZITHROMYCIN 500MG/NS 250 ML 250 ML IV SCH (23:01)
[2019-07-28] VITALS (25 sets, daily range): BP systolic 92–198; BP diastolic 66–119
[2019-07-28] MEDS: PROPOFOL IV EMULSION 10MG/ML 100 ML IV SCH ×6 (01:08→23:30)
[2019-07-28] MEDS: LORAZEPAM INJ 2 MG/ML VIAL IV SCH ×6 (02:00→22:14)
[2019-07-28 05:09] LABS: BASOPHILS % 0.4 % (0.0-1.0); EOSINOPHILS # (AUTO) 0.1 (0.0-0.4); EOSINOPHILS % 1.4 % (0.0-6.0); HEMATOCRIT 36.7 % (38.2-49.6); HEMOGLOBIN 12.1 g/dL (14.0-18.0); LYMPHOCYTES # (AUTO) 0.4 (1.0-3.2); LYMPHOCYTES % 5.4 % (18.0-39.1); MEAN CORPUSCULAR VOLUME 94.1 fL (81-99); MONOCYTES # (AUTO) 0.5 (0.2-0.8); NEUTROPHILS # (AUTO) 6.8 (2.1-6.9); NEUTROPHILS % 84.8 % (38.7-80.0); PLATELET COUNT 123 x10e3/uL (140-360); RED CELL DISTRIBUTION WIDTH 13.1 % (11.7-14.4)
[2019-07-28 05:54] LABS: ALANINE AMINOTRANSFERASE 42 IU/L (0-55); ALBUMIN 1.5 g/dL (3.5-5.0); ALBUMIN/GLOBULIN RATIO 0.3 (0.8-2.0); ALKALINE PHOSPHATASE 294 IU/L (40-150); ANION GAP 9.6 mmol/L (8-16); BLOOD UREA NITROGEN 13 mg/dL (7-26); BUN/CREATININE RATIO 20 (6-25); CALCIUM 8.2 mg/dL (8.4-10.2); CARBON DIOXIDE 27 mmol/L (22-29); CHLORIDE 118 mmol/L (98-107); CREATININE, SERUM 0.65 mg/dL (0.72-1.25); EST GLOMERULAR FILTRATION RATE > 60 ML/MIN (60-); GLUCOSE 81 mg/dL (74-118); POTASSIUM 3.6 mmol/L (3.5-5.1); SODIUM 151 mmol/L (136-145)
[2019-07-28] MEDS: MEROPENEM 1GM 100 ML IV SCH ×3 (06:00→22:14)
[2019-07-28] MEDS: ASPIRIN 81 MG CHEW TAB PO SCH (08:21)
[2019-07-28] MEDS: VALSARTAN 160 MG TAB PO SCH (08:21)
[2019-07-28] MEDS: OSELTAMIVIR PHOSPHATE 75 MG CAP PO SCH ×2 (08:22→21:19)
[2019-07-28] MEDS: METOPROLOL TARTRATE 25 MG TAB PO SCH ×2 (08:22→16:55)
[2019-07-28] MEDS: CLOPIDOGREL BISULFATE 75 MG TAB PO SCH (08:22)
--- NOTE | 2019-07-28 08:37 | Diagnostic Imaging Report ---
Chest, portable AP view History: Respiratory failure Comparison: 07/27/2019, chest CT dated 07/23/2019 IMPRESSION: The tip of the endotracheal tube terminates approximately 5.9 cm above the georgi. The heart is unchanged in size and configuration. There are unchanged bilateral airspace opacities. No sizable pleural effusion or pneumothorax. Signed by: Blayne Quinonez MD on 07/28/2019 8:33 AM
[2019-07-28] MEDS: FENTANYL CITRATE INJ 2,000 MCG in SODIUM CHLORIDE 0.9% 250ML 210 ML IV PRN (11:05)
[2019-07-28] MEDS: ACETAMINOPHEN 325 MG TAB PO PRN (13:26)
--- NOTE | 2019-07-28 14:00 | Progress Note ---
DATE: SUBJECTIVE: The patient remains on assist-control mode of ventilation with 50% of oxygen and PEEP set at 14. His Nimbex was stopped this morning. He desaturated in the early afternoon when being turned and the Nimbex was restarted. He is continued on sedation. He remains on an insulin drip at 2 units an hour. PHYSICAL EXAMINATION: VITAL SIGNS: The patient is now afebrile. The blood pressure is 151/94. Saturation is now 91% on an assist-control tidal volume of 430 and a rate of 20. FiO2 is set at 50%, PEEP is set at 14. HEENT: Shows no facial swelling or erythema. There is an oral endotracheal tube in place. There is an IJ line in place. The site looks clean. There is no drainage. CARDIAC: Reveals regular rate and rhythm with normal S1 and S2. LUNGS: Auscultation of lungs reveals clear breath sounds bilaterally. There is no wheezing. ABDOMEN: Soft, nontender. There is no rebound or guarding. EXTREMITIES: Show no leg edema or calf tenderness. There is no cyanosis or clubbing. SKIN: Shows no rashes. NEUROLOGIC: Shows the patient to be sedated. LABORATORY DATA: White blood cell count is 8, and hemoglobin is 12.1. The platelet count is 123. The BUN to creatinine ratio is 13 to 0.65 and the sodium is 151. Albumin is 1.5. IMPRESSION: 1. Acute respiratory failure. 2. Acute respiratory distress syndrome. 3. Atypical pneumonia with severe sepsis, present on admission. 4. Thrombocytopenia. 5. Hyponatremia. 6. Diabetic ketoacidosis. PLAN: 1. Continue ventilation with low tidal volumes and high PEEP. Try and wean the Nimbex and sedatives as tolerated. 2. Continue enteral feedings. 3. Continue current antibiotics. 4. Continue current insulin regimen. 5. Increase free water. 6. Repeat laboratory tests tomorrow. 7. Case discussed with nursing, Respiratory, Infectious Disease, and administration. Greater than 35 minutes in direct critical care time. Joseph Ch MD [facility]/MODL /[id number]
[2019-07-28] MEDS: ENOXAPARIN SOD INJ 40 MG/0.4 ML SYR SC SCH (18:46)
[2019-07-28] MEDS: CISATRACURIUM BESYLATE 100 MG in SODIUM CHLORIDE 0.9% 100 ML 50 ML IV PRN (20:00)
[2019-07-28] MEDS: INSULIN GLARGINE 100 UNITS/ML VIAL SQ SCH (21:00)
[2019-07-28] MEDS ORDERED: MIDAZOLAM HCL 25 MG in SODIUM CHLORIDE 0.9% 50ML 45 ML IV PRN (21:00)
[2019-07-28] MEDS: AZITHROMYCIN 500MG/NS 250 ML 250 ML IV SCH (23:00)
[2019-07-29] VITALS (25 sets, daily range): BP systolic 74–157; BP diastolic 53–96
[2019-07-29] MEDS: LORAZEPAM INJ 2 MG/ML VIAL IV SCH ×6 (02:00→22:00)
[2019-07-29] MEDS: CISATRACURIUM BESYLATE 100 MG in SODIUM CHLORIDE 0.9% 100 ML 50 ML IV PRN ×2 (03:00→21:00)
[2019-07-29] MEDS: PROPOFOL IV EMULSION 10MG/ML 100 ML IV SCH ×4 (03:00→23:30)
[2019-07-29 05:08] LABS: BASOPHILS % 0.3 % (0.0-1.0); EOSINOPHILS # (AUTO) 0.2 (0.0-0.4); EOSINOPHILS % 2.3 % (0.0-6.0); HEMATOCRIT 37.5 % (38.2-49.6); LYMPHOCYTES % 10.5 % (18.0-39.1); MEAN CORPUSCULAR HEMOGLOBIN 30.8 pg (28-32); MEAN CORPUSCULAR VOLUME 96.2 fL (81-99); MONOCYTES # (AUTO) 0.6 (0.2-0.8); MONOCYTES % 6.3 % (4.4-11.3); NEUTROPHILS # (AUTO) 7.1 (2.1-6.9); NEUTROPHILS % 78.5 % (38.7-80.0); PLATELET COUNT 157 x10e3/uL (140-360); RED CELL DISTRIBUTION WIDTH 12.8 % (11.7-14.4)
[2019-07-29 05:26] LABS: ALANINE AMINOTRANSFERASE 32 IU/L (0-55); ALBUMIN 1.5 g/dL (3.5-5.0); ALBUMIN/GLOBULIN RATIO 0.3 (0.8-2.0); ALKALINE PHOSPHATASE 225 IU/L (40-150); ANION GAP 7.8 mmol/L (8-16); BLOOD UREA NITROGEN 21 mg/dL (7-26); BUN/CREATININE RATIO 26 (6-25); CALCIUM 8.5 mg/dL (8.4-10.2); CARBON DIOXIDE 27 mmol/L (22-29); CHLORIDE 114 mmol/L (98-107); EST GLOMERULAR FILTRATION RATE > 60 ML/MIN (60-); GLUCOSE 126 mg/dL (74-118); POTASSIUM 3.8 mmol/L (3.5-5.1); SODIUM 145 mmol/L (136-145)
[2019-07-29] MEDS: MEROPENEM 1GM 100 ML IV SCH ×3 (06:00→22:03)
[2019-07-29] MEDS: ASPIRIN 81 MG CHEW TAB PO SCH (08:19)
[2019-07-29] MEDS: CLOPIDOGREL BISULFATE 75 MG TAB PO SCH (08:20)
[2019-07-29] MEDS: VALSARTAN 160 MG TAB PO SCH (08:20)
[2019-07-29] MEDS: OSELTAMIVIR PHOSPHATE 75 MG CAP PO SCH (08:20)
[2019-07-29] MEDS: METOPROLOL TARTRATE 25 MG TAB PO SCH ×2 (08:20→16:52)
[2019-07-29] MEDS ORDERED: FUROSEMIDE INJ 10 MG/ML 4 ML VIAL IV ONE (09:00)
[2019-07-29] MEDS ORDERED: NOREPINEPHRINE 8 MG/D5W 250 ML 250 ML ONE (09:33)
[2019-07-29] MEDS: NOREPINEPHRINE 8 MG/D5W 250 ML 250 ML IV SCH (10:20)
--- NOTE | 2019-07-29 10:26 | Diagnostic Imaging Report ---
TECHNIQUE: Frontal view of the chest. INDICATION: 48-year-old man with respiratory failure. COMPARISON: Chest radiograph 07/28/2019. FINDINGS: LINES/TUBES: Unchanged. LUNGS: Increased bilateral airspace opacities. PLEURA: No pneumothorax or significant pleural effusion. HEART AND MEDIASTINUM: The cardiomediastinal silhouette is unchanged. SOFT TISSUES AND BONES: Unremarkable. IMPRESSION: Increased bilateral airspace opacities. Differential considerations include worsened pulmonary edema or aspiration/pneumonia. Otherwise, no significant change since 07/28/2019. Signed by: Junaid Shelton MD on 07/29/2019 10:22 AM
--- NOTE | 2019-07-29 14:49 | Progress Note ---
DATE: Pulmonary Critical Care Progress Note SUBJECTIVE: The patient was on 65% oxygen and so early this afternoon when he required and increased to 95%. He remains on 12 of PEEP. He is on Nimbex again along with fentanyl and propofol. He has had some hypotension and required Levophed. PHYSICAL EXAMINATION: VITAL SIGNS: The blood pressure is 109/78, saturation is 92% to 94%, on PEEP of 14 and FiO2 of 95%. HEENT: Shows no facial swelling or erythema. There is an oral endotracheal tube in place. His IJ line in place. The site looks clean. There is no drainage. CARDIAC: Reveals regular rate and rhythm with normal S1 and S2. LUNGS: Auscultation of lungs reveals crackles in both lung salas. There are decreased breath sounds. ABDOMEN: Soft and nontender. There is no rebound or guarding. EXTREMITIES: Shows no leg edema or calf tenderness. There is no cyanosis or clubbing. SKIN: Shows no rashes. NEUROLOGICAL: Shows no focal abnormalities. LABORATORY DATA: White blood cell count is 9 and hemoglobin is 12. The platelet count is 157. The BUN to creatinine ratio is normal. The sodium is 145. Albumin is 1.5. RADIOGRAPHIC DATA: Chest x-ray shows worsening bilateral infiltrates. IMPRESSION: 1. Acute respiratory failure. 2. Acute respiratory distress syndrome. 3. Atypical pneumonia with severe sepsis, present on admission. 4. Thrombocytopenia. 5. Diabetic ketoacidosis. PLAN: 1. Continue ventilation with low tidal volumes and high PEEP. Repeat ABG now. 2. Continue current sedatives and Nimbex. 3. Lasix 40 mg IV. 4. Continue DVT prophylaxis. 5. Continue insulin drip at 1-2 units. 6. Continue enteral feedings. 7. We will require specialty bed for possible prone positioning. 8. Consult ENT for tracheostomy. 9. Case discussed with nursing, Respiratory, mother and Infectious Disease. Greater than 35 minutes in direct critical care time. Joseph Ch MD [facility]/MODL /[id number]
[2019-07-29] MEDS: ENOXAPARIN SOD INJ 40 MG/0.4 ML SYR SC SCH (16:59)
--- NOTE | 2019-07-29 19:06 | Progress Note ---
DATE: SUBJECTIVE: He became short of breath. His FiO2 was 65%, but it is now 95% on 12 of PEEP. OBJECTIVE: HEENT: Not icteric. NECK: Oral intubation. Chest: Few crackles. COR: S1, S2. IMPRESSION: Respiratory failure. I am concerned about acute respiratory distress (ARDS) syndrome, atypical pneumonia on presentation. We still do not have a pathogen. We are still waiting on COVID-19. It has been 6 days since admission. He was initially getting better. Now, he is getting worse. We are going to resend COVID-19 for a new lab. I am told it will take at least 48 hours. We will follow. MD SHANNAN Jaramillo/JAGDISH /[id number]
[2019-07-29 19:23] LABS: ABG HCO3 30 mmol/L (23-28); ABG PCO2 54 mmHg (41-51); ABG PH 7.35 (7.31-7.41)
[2019-07-29] MEDS ORDERED: ENOXAPARIN SOD INJ 40 MG/0.4 ML SYR SC SCH (21:00)
--- NOTE | 2019-07-29 21:16 | Consultation ---
DATE OF CONSULTATION: 07/29/2019 Hospital Consultation HISTORY OF PRESENT ILLNESS: I was kindly asked to see this 48-year-old man for evaluation of tracheostomy tube placement. The patient has required prolonged ventilator support and it is anticipated he will continue to need ventilator support and subsequent pulmonary toilet. His history of present illness was reviewed in detail in the chart and it is pertinent for instability with moving the patient. His past medical history and past surgical history were reviewed in detail in the chart. His examination was noncontributory. ASSESSMENT: Respiratory failure. PLAN: We will discuss with Dr. Ch regarding timing of tracheostomy. Thank you very much. Abhinav Kearns MD [facility]/MODL /[id number]
[2019-07-29] MEDS ORDERED: ENOXAPARIN INJ 80 MG/0.8 ML SYR SC ONE (21:17)
[2019-07-29] MEDS: ENOXAPARIN INJ 80 MG/0.8 ML SYR SC SCH (21:30)
[2019-07-29] MEDS: INSULIN GLARGINE 100 UNITS/ML VIAL SQ SCH (21:44)
[2019-07-29] MEDS: AZITHROMYCIN 500MG/NS 250 ML 250 ML IV SCH (23:00)
[2019-07-30] VITALS (24 sets, daily range): BP systolic 106–175; BP diastolic 59–99
[2019-07-30] MEDS: LORAZEPAM INJ 2 MG/ML VIAL IV SCH ×6 (02:08→21:43)
[2019-07-30] MEDS: PROPOFOL IV EMULSION 10MG/ML 100 ML IV SCH ×8 (02:30→23:30)
[2019-07-30] MEDS: INSULIN REGULAR, HUMAN 3ML VL 100 UNIT in SODIUM CHLORIDE 0.9% 100 ML IV SCH ×2 (05:00)
[2019-07-30] MEDS: CISATRACURIUM BESYLATE 100 MG in SODIUM CHLORIDE 0.9% 100 ML 50 ML IV PRN ×4 (05:00→21:00)
[2019-07-30] MEDS: MEROPENEM 1GM 100 ML IV SCH ×3 (06:00→21:43)
[2019-07-30 06:52] LABS: BASOPHILS % 0.4 % (0.0-1.0); EOSINOPHILS # (AUTO) 0.2 (0.0-0.4); EOSINOPHILS % 2.5 % (0.0-6.0); HEMATOCRIT 37.2 % (38.2-49.6); HEMOGLOBIN 11.8 g/dL (14.0-18.0); LYMPHOCYTES # (AUTO) 0.7 (1.0-3.2); LYMPHOCYTES % 8.1 % (18.0-39.1); MEAN CORPUSCULAR HEMOGLOBIN 30.6 pg (28-32); MEAN CORPUSCULAR HGB CONC 31.7 g/dL (31-35); MEAN CORPUSCULAR VOLUME 96.6 fL (81-99); MONOCYTES # (AUTO) 0.9 (0.2-0.8); NEUTROPHILS # (AUTO) 6.6 (2.1-6.9); NEUTROPHILS % 76.8 % (38.7-80.0); PLATELET COUNT 186 x10e3/uL (140-360); RED BLOOD COUNT 3.85 x10e6/uL (4.3-5.7); RED CELL DISTRIBUTION WIDTH 12.9 % (11.7-14.4)
[2019-07-30 07:11] LABS: INR 0.99; PROTHROMBIN TIME 13.7 seconds (11.9-14.5)
[2019-07-30 07:19] LABS: ALANINE AMINOTRANSFERASE 27 IU/L (0-55); ALBUMIN 1.5 g/dL (3.5-5.0); ALBUMIN/GLOBULIN RATIO 0.3 (0.8-2.0); ALKALINE PHOSPHATASE 186 IU/L (40-150); ANION GAP 8.7 mmol/L (8-16); BLOOD UREA NITROGEN 18 mg/dL (7-26); BUN/CREATININE RATIO 25 (6-25); CALCIUM 8.3 mg/dL (8.4-10.2); CARBON DIOXIDE 32 mmol/L (22-29); CHLORIDE 109 mmol/L (98-107); CREATININE, SERUM 0.71 mg/dL (0.72-1.25); EST GLOMERULAR FILTRATION RATE > 60 ML/MIN (60-); GLUCOSE 125 mg/dL (74-118); POTASSIUM 3.7 mmol/L (3.5-5.1); SODIUM 146 mmol/L (136-145)
[2019-07-30] MEDS: CLOPIDOGREL BISULFATE 75 MG TAB PO SCH (08:04)
[2019-07-30] MEDS: ASPIRIN 81 MG CHEW TAB PO SCH (08:04)
[2019-07-30] MEDS: METOPROLOL TARTRATE 25 MG TAB PO SCH ×2 (08:04→17:00)
[2019-07-30] MEDS: ENOXAPARIN INJ 80 MG/0.8 ML SYR SC SCH ×2 (08:10→21:00)
[2019-07-30] MEDS ORDERED: ENOXAPARIN 30 MG/0.3 ML SYR SC ONE (08:15)
--- NOTE | 2019-07-30 09:09 | Progress Note ---
DATE: July 292019 SUBJECTIVE: The patient's oxygenation remains poor. He is now on 90% FiO2 with 16 of PEEP. His respiratory rate is set at 22. He remains on Nimbex and is being titrated based train of four monitoring. He remains on propofol as well as fentanyl. The Levophed has been weaned off. PHYSICAL EXAMINATION: VITAL SIGNS: The blood pressure is 169/89, and saturation is 90%. His pulse is 110. HEENT: Shows no facial swelling or erythema. CARDIAC: Reveals a regular rate and rhythm with normal S1 and S2. There are decreased breath sounds at the lung bases. There is poor ventilation. ABDOMEN: Soft and nontender. There is no rebound or guarding. EXTREMITIES: Show no leg edema or calf tenderness. There is no cyanosis or clubbing. SKIN: Shows no rashes. LABORATORY DATA: Sodium is 146 and the BUN to creatinine ratio is 18 to 0.71. The blood sugar is 125 to 130. The albumin is 1.5. Platelet count is 186 and hemoglobin is 11.8. RADIOGRAPHIC DATA: Chest x-ray shows worsening bilateral infiltrates. IMPRESSION: 1. Acute respiratory failure. 2. Acute respiratory distress syndrome. 3. Atypical pneumonia with severe sepsis, present on admission. 4. Diabetic ketoacidosis. 5. Thrombocytopenia. PLAN: 1. Continue high PEEP and low tidal volumes and titrate FiO2 as tolerated. 2. Begin prone ventilation once rotating bed is available 3. Depending on the patient's response to prone ventilation, we will consider nebulized Flolan. 4. Continue Zithromax. If the patient's serology returns positive for coronavirus, Infectious Disease will consider hydrochloroquine or another investigational drug. 5. Continue enteral feedings and insulin as needed. 6. The patient is now on Lovenox at 1 mg/kg twice daily because of reports in the literature of hypercoagulability and increased thromboembolic disease with systemic COVID infections. 7. Awaiting tracheostomy from ENT. 8. [facility] has declined the patient for transfer and possible ECMO. Apparently, they do not have enough ICU isolation rooms. Depending on the COVID serology, there is a possibility of transferring the patient to [facility] where investigational studies are underway. 9. Case discussed with Dr. Aguirre of Internal Medicine, Dr. Borges of Infectious Disease, mother, Nursing, Respiratory and administration. Greater than 35 minutes in direct critical care time apart from any procedures performed MD RITA Moscoso/JAGDISH /[id number] MTDIrene
[2019-07-30] MEDS ORDERED: FUROSEMIDE INJ 10 MG/ML 4 ML VIAL IV ONE (09:15)
[2019-07-30] MEDS: NOREPINEPHRINE 8 MG/D5W 250 ML 250 ML IV SCH (09:30)
--- NOTE | 2019-07-30 10:44 | Progress Note ---
DATE: 07/30/2019 CHIEF COMPLAINT: Respiratory distress; requested by Dr. Jaylin Ch. SUBJECTIVE: The patient remains intubated in the ICU. FiO2 is now at 90%. PEEP 16. Respiratory rate 22. Sedated. OBJECTIVE: VITAL SIGNS: Blood pressure 170/80. Pulse 110 and regular. O2 saturation 94%. HEENT: No facial swelling or erythema. NECK: Supple, nontender. CARDIAC: Regular rate and rhythm. Normal S1, S2. No S3 or S4. LUNGS: Coarse ventilator sounds bilaterally. ABDOMEN: Soft, hypoactive bowel sounds. EXTREMITIES: Well perfused. LABORATORIES: White count of 8.5, hemoglobin 11.8, hematocrit 37.2, platelet count 186,000. INR 0.99. PT 13.7. Sodium 146, potassium 3.7, BUN 18, creatinine 0.71, total protein 6.0. IMAGING: Chest x-ray shows pulmonary edema. ASSESSMENT: Continued intensive support. Respiratory insufficiency. Agree with management. Phu Garcia MD [facility]/MODL /[id number]
[2019-07-30] MEDS ORDERED: SODIUM CHLORIDE 0.9% 1000ML 1,000 ML ONE (12:05)
--- NOTE | 2019-07-30 14:56 | Operative Report ---
DATE OF PROCEDURE: SURGEON: Joseph Ch MD PROCEDURE: Arterial line placement. INDICATIONS: Diabetes, viral pneumonia, and respiratory failure. POSTOPERATIVE DIAGNOSES: 1. Diabetes. 2. Viral pneumonia. 3. Respiratory failure. CONSENT: Consent was obtained from the mother. ANESTHESIA: The patient was on Diprivan and fentanyl intravenously at the time of the procedure. He was also on mechanical ventilation. PROCEDURE IN DETAIL: The left wrist was sterilely prepped over the area of the radial artery. A 20-gauge needle was used to cannulate the artery. The wire was passed through the needle and a small 20-gauge catheter was placed into the radial artery by the Seldinger technique. There was a good arterial waveform. The line flushed well. Two stitches with 3-0 nylon were used to anchor the catheter in place. COMPLICATIONS: None. Joseph Ch MD [facility]/MODL /[id number]
[2019-07-30] MEDS: FENTANYL CITRATE INJ 2,000 MCG in SODIUM CHLORIDE 0.9% 250ML 210 ML IV PRN (17:16)
[2019-07-30] MEDS ORDERED: ENOXAPARIN INJ 80 MG/0.8 ML SYR SC ONE (19:57)
[2019-07-30] MEDS: INSULIN GLARGINE 100 UNITS/ML VIAL SQ SCH (21:00)
[2019-07-30] MEDS: AZITHROMYCIN 500MG/NS 250 ML 250 ML IV SCH (23:20)
[2019-07-31] VITALS (25 sets, daily range): BP systolic 91–191; BP diastolic 51–102
[2019-07-31] MEDS: LORAZEPAM INJ 2 MG/ML VIAL IV SCH ×6 (02:00→22:02)
[2019-07-31] MEDS: PROPOFOL IV EMULSION 10MG/ML 100 ML IV SCH ×7 (03:40→18:14)
[2019-07-31 04:51] LABS: BASOPHILS # (AUTO) 0.1 (0.0-0.1); BASOPHILS % 0.6 % (0.0-1.0); EOSINOPHILS # (AUTO) 0.2 (0.0-0.4); EOSINOPHILS % 2.3 % (0.0-6.0); HEMATOCRIT 36.1 % (38.2-49.6); HEMOGLOBIN 11.6 g/dL (14.0-18.0); LYMPHOCYTES # (AUTO) 0.8 (1.0-3.2); LYMPHOCYTES % 9.9 % (18.0-39.1); MEAN CORPUSCULAR HEMOGLOBIN 30.7 pg (28-32); MEAN CORPUSCULAR HGB CONC 32.1 g/dL (31-35); MEAN CORPUSCULAR VOLUME 95.5 fL (81-99); MONOCYTES # (AUTO) 0.8 (0.2-0.8); MONOCYTES % 9.3 % (4.4-11.3); NEUTROPHILS # (AUTO) 6.2 (2.1-6.9); NEUTROPHILS % 75.5 % (38.7-80.0); PLATELET COUNT 211 x10e3/uL (140-360); RED BLOOD COUNT 3.78 x10e6/uL (4.3-5.7); RED CELL DISTRIBUTION WIDTH 12.3 % (11.7-14.4)
[2019-07-31 05:15] LABS: ALANINE AMINOTRANSFERASE 24 IU/L (0-55); ALBUMIN 1.4 g/dL (3.5-5.0); ALBUMIN/GLOBULIN RATIO 0.3 (0.8-2.0); ALKALINE PHOSPHATASE 167 IU/L (40-150); ANION GAP 8.3 mmol/L (8-16); BLOOD UREA NITROGEN 16 mg/dL (7-26); BUN/CREATININE RATIO 23 (6-25); CALCIUM 8.1 mg/dL (8.4-10.2); CARBON DIOXIDE 33 mmol/L (22-29); CHLORIDE 105 mmol/L (98-107); CREATININE, SERUM 0.69 mg/dL (0.72-1.25); EST GLOMERULAR FILTRATION RATE > 60 ML/MIN (60-); GLUCOSE 119 mg/dL (74-118); POTASSIUM 3.3 mmol/L (3.5-5.1); SODIUM 143 mmol/L (136-145)
[2019-07-31] MEDS: MEROPENEM 1GM 100 ML IV SCH ×3 (05:15→22:02)
[2019-07-31] MEDS: CISATRACURIUM BESYLATE 100 MG in SODIUM CHLORIDE 0.9% 100 ML 50 ML IV PRN ×3 (06:30→18:15)
[2019-07-31 07:27] LABS: EOSINOPHILS % (MANUAL) 6 % (0-7); LYMPHOCYTES % (MANUAL) 8 % (19-48); METAMYELOCYTES % (MANUAL) 2 % (0-0); MONOCYTES % (MANUAL) 10 % (3.4-9.0); MYELOCYTES % (MANUAL) 1 % (0-0); NEUTROPHILS % (MANUAL) 73 % (40-74); PLATELET ESTIMATE ADEQUATE; PLATELET MORPHOLOGY COMMENT FEW LARGE; RBC MORPHOLOGY COMMENT NORMAL
[2019-07-31] MEDS: NOREPINEPHRINE 8 MG/D5W 250 ML 250 ML IV SCH (07:43)
[2019-07-31] MEDS ORDERED: ROCURONIUM BROMIDE 10 MG/ML 5ML VIAL IV ONE (08:25)
[2019-07-31] MEDS: ENOXAPARIN INJ 80 MG/0.8 ML SYR SC SCH ×2 (08:52→21:59)
[2019-07-31] MEDS: ASPIRIN 81 MG CHEW TAB PO SCH (08:52)
[2019-07-31] MEDS: CLOPIDOGREL BISULFATE 75 MG TAB PO SCH (08:52)
[2019-07-31] MEDS: METOPROLOL TARTRATE 25 MG TAB PO SCH ×2 (08:52→16:32)
[2019-07-31] MEDS ORDERED: ENOXAPARIN INJ 80 MG/0.8 ML SYR SC SCH (09:00)
--- NOTE | 2019-07-31 09:44 | Progress Note ---
DATE: SUBJECTIVE: The patient was placed in prone position early this morning. His enteral feedings are on hold. He continues on Nimbex at 5 per hour as well as propofol at 80 and fentanyl at 200. He is off Levophed. His FiO2 was decreased to 80% this morning. Because of an elevated plateau pressure of 34, his tidal volume was decreased to 370 and his PEEP was decreased. He remains afebrile. PHYSICAL EXAMINATION: VITAL SIGNS: Blood pressure is 168/71 and saturation is 95%. He is on a PRVC at a rate of 24 with a tidal volume of 370, and 80% FiO2. His PEEP is set at 16. His breathing is synchronized with the ventilator and his saturations are 95%. HEENT: Shows an oral endotracheal tube. There is a nasal gastric tube that is attached to suction. There is a right IJ line. The site looks clean. There is no drainage. There is a left radial A-line. CARDIAC: Reveals regular rate and rhythm with normal S1 and S2. LUNGS: Auscultation of lungs reveals rhonchorous breath sounds bilaterally. There is no wheezing. ABDOMEN: Soft, nontender. There is no rebound or guarding. EXTREMITIES: Show no leg edema or calf tenderness. There is no cyanosis or clubbing. SKIN: Shows no rashes. NEUROLOGICAL: Shows no focal abnormalities. LABORATORY DATA: White blood cell count is 8.2, hemoglobin is 11.6, and the platelet count is 211. The BUN to creatinine ratio is 16 to 0.7 and the potassium is 3.3. Other electrolytes are within normal limits. IMPRESSION: 1. Acute respiratory failure. 2. Acute respiratory distress syndrome. 3. Atypical pneumonia with severe sepsis, present on admission. 4. Diabetic ketoacidosis. 5. Thrombocytopenia. PLAN: 1. Continue high PEEP with low tidal volumes and decrease FiO2 as tolerated. 2. Continue prone ventilation. 3. Continue Zithromax and antibiotics as recommended by ID. Await coronavirus serologies. 4. Tracheostomy. Discussed with ENT. Because of the patient's high PEEP and FiO2, he is too unstable for tracheostomy at this time. We will re-evaluate in 2 to 3 days. 5. Re-initiate enteral feedings once the patient is no longer in the prone position. 6. Case discussed with the evening shift from nursing, dayshift from nursing, Respiratory, Dr. Kearns of ENT, Dr. Borges, and Internal Medicine. Greater than 90 minutes in direct critical care time. MD RITA Moscoso/JAGDISH /[id number]
[2019-07-31] MEDS: POTASSIUM CHLORIDE 20MEQ/100ML 100 ML IV PRN (10:17)
[2019-07-31] MEDS: FENTANYL CITRATE INJ 2,000 MCG in SODIUM CHLORIDE 0.9% 250ML 210 ML IV PRN (13:37)
[2019-07-31] MEDS: INSULIN REGULAR, HUMAN 3ML VL 100 UNIT in SODIUM CHLORIDE 0.9% 100 ML IV SCH ×2 (13:40)
[2019-07-31] MEDS: EYE LUBRICANT OPTH OINT 3.5GM TUBE OP SCH ×2 (16:32→21:59)
[2019-07-31] MEDS: MIDAZOLAM HCL 25 MG in SODIUM CHLORIDE 0.9% 50ML 45 ML IV PRN (20:45)
[2019-07-31] MEDS: INSULIN GLARGINE 100 UNITS/ML VIAL SQ SCH (22:02)
[2019-07-31] MEDS: AZITHROMYCIN 500MG/NS 250 ML 250 ML IV SCH (23:55)
[2019-08-01] VITALS (25 sets, daily range): BP systolic 119–175; BP diastolic 71–96
[2019-08-01] MEDS: CISATRACURIUM BESYLATE 100 MG in SODIUM CHLORIDE 0.9% 100 ML 50 ML IV PRN ×5 (00:25→23:35)
[2019-08-01] MEDS: LORAZEPAM INJ 2 MG/ML VIAL IV SCH ×6 (02:20→22:00)
[2019-08-01] MEDS: MIDAZOLAM HCL 25 MG in SODIUM CHLORIDE 0.9% 50ML 45 ML IV PRN ×4 (03:11→20:25)
[2019-08-01] MEDS: FENTANYL CITRATE INJ 2,000 MCG in SODIUM CHLORIDE 0.9% 250ML 210 ML IV PRN (04:15)
[2019-08-01] MEDS: MEROPENEM 1GM 100 ML IV SCH ×3 (05:45→22:00)
[2019-08-01 05:49] LABS: BASOPHILS # (AUTO) 0.1 (0.0-0.1); BASOPHILS % 0.4 % (0.0-1.0); EOSINOPHILS # (AUTO) 0.1 (0.0-0.4); EOSINOPHILS % 0.7 % (0.0-6.0); HEMATOCRIT 38.5 % (38.2-49.6); HEMOGLOBIN 12.3 g/dL (14.0-18.0); LYMPHOCYTES # (AUTO) 0.8 (1.0-3.2); LYMPHOCYTES % 6.5 % (18.0-39.1); MEAN CORPUSCULAR HEMOGLOBIN 30.9 pg (28-32); MEAN CORPUSCULAR HGB CONC 31.9 g/dL (31-35); MEAN CORPUSCULAR VOLUME 96.7 fL (81-99); MONOCYTES # (AUTO) 0.9 (0.2-0.8); MONOCYTES % 7.7 % (4.4-11.3); NEUTROPHILS # (AUTO) 9.4 (2.1-6.9); NEUTROPHILS % 81.8 % (38.7-80.0); PLATELET COUNT 318 x10e3/uL (140-360); RED BLOOD COUNT 3.98 x10e6/uL (4.3-5.7); RED CELL DISTRIBUTION WIDTH 12.5 % (11.7-14.4)
[2019-08-01 05:59] LABS: INR 1.1; PROTHROMBIN TIME 14.9 seconds (11.9-14.5)
[2019-08-01 06:06] LABS: ALANINE AMINOTRANSFERASE 27 IU/L (0-55); ALBUMIN 1.4 g/dL (3.5-5.0); ALBUMIN/GLOBULIN RATIO 0.3 (0.8-2.0); ALKALINE PHOSPHATASE 156 IU/L (40-150); ANION GAP 15.6 mmol/L (8-16); BLOOD UREA NITROGEN 17 mg/dL (7-26); BUN/CREATININE RATIO 21 (6-25); CALCIUM 8.6 mg/dL (8.4-10.2); CARBON DIOXIDE 31 mmol/L (22-29); CHLORIDE 101 mmol/L (98-107); CREATININE, SERUM 0.81 mg/dL (0.72-1.25); EST GLOMERULAR FILTRATION RATE > 60 ML/MIN (60-); GLUCOSE 176 mg/dL (74-118); POTASSIUM 4.6 mmol/L (3.5-5.1); SODIUM 143 mmol/L (136-145)
[2019-08-01] MEDS ORDERED: SODIUM CHLORIDE 0.45% 1,000 ML IV ONE (07:45)
[2019-08-01] MEDS ORDERED: SODIUM CHLORIDE 0.9% 1000ML 1,000 ML ONE (07:54)
[2019-08-01] MEDS ORDERED: SODIUM CHLORIDE 0.45% 1,000 ML ONE (08:02)
--- NOTE | 2019-08-01 08:27 | Progress Note ---
DATE: Pulmonary Critical Care Progress Note SUBJECTIVE: The patient had more tachycardia last night. His FiO2 was increased to 90%. He continues to have some fevers and is requiring Tylenol and a cooling blanket. PHYSICAL EXAMINATION: VITAL SIGNS: The blood pressure is 174/96 and his heart rate is 121. Respiratory rate is 26. The patient is synchronized with the ventilator. Current ventilator settings are assist control of 26 with a tidal volume of 350 and FiO2 of 90%. The PEEP is set at 16. The plateau pressure is 30. The compliance is 19.8. GENERAL: The patient remains on Versed at 3 mg/hour along with Nimbex at 5 and fentanyl at 125. He is off the Diprivan. He is now in the prone position. He has an endotracheal tube in place. There is a right IJ line. The site looks clean. RESPIRATORY: Auscultation of lungs reveal crackles, but no wheezing. CARDIAC: Reveals regular rate and rhythm with normal S1 and S2. There are no murmurs or rubs. GI: Auscultation of the abdomen reveals decreased bowel sounds. Soft and nontender. EXTREMITIES: There is no leg edema or calf tenderness. Feet are cold, but there are good pulses. There is no visible mottling. LABORATORY DATA: White blood cell count is 11.4, hemoglobin is 12.3, and the platelet count is 318. The BUN to creatinine ratio is 17 to 0.81. The sodium is 143. IMPRESSION: 1. Acute respiratory failure. 2. Acute respiratory distress syndrome. 3. Atypical pneumonia and severe sepsis, secondary to COVID-19 infection. 4. Diabetic ketoacidosis that has resolved. 5. Thrombocytopenia that has improved. PLAN: 1. Repeat ABG and adjust ventilator as needed. Continue lung protective strategy. 2. Increase Versed to 5 mg an hour and continue Nimbex. 3. Arrange for a PICC line today, so the central line can be removed because it has been present for 10 days. 4. Continue Zithromax. I discussed the possibility of Plaquenil with Infectious Disease, but we feel the risk of arrhythmia outweighs the potential benefit in the situation. 5. ENT is unable to do the tracheostomy at this time because of the high PEEP and FiO2. The patient will be re-evaluated on Sunday for possible tracheostomy. 6. Continue prone ventilation. 7. Half-normal saline at 125 mL an hour x1 liter. 8. Case discussed with the evening nursing shift, day time nursing shift, Respiratory, mother, Dr. Borges of Infectious Disease, and Endocrinology. Greater than 90 minutes in direct critical care time. MD RITA Moscoso/JAGDISH /[id number]
[2019-08-01] MEDS: METOPROLOL TARTRATE 25 MG TAB PO SCH ×2 (08:30→16:42)
[2019-08-01] MEDS: EYE LUBRICANT OPTH OINT 3.5GM TUBE OP SCH ×3 (08:30→21:15)
[2019-08-01] MEDS: ASPIRIN 81 MG CHEW TAB PO SCH (08:30)
[2019-08-01] MEDS: CLOPIDOGREL BISULFATE 75 MG TAB PO SCH (08:31)
[2019-08-01] MEDS: NOREPINEPHRINE 8 MG/D5W 250 ML 250 ML IV SCH (09:25)
[2019-08-01] MEDS: FLUCONAZOLE 400MG/200ML BAG 200 ML IV SCH (11:14)
[2019-08-01] MEDS ORDERED: MICAFUNGIN SODIUM 100 ML IV SCH (12:00)
[2019-08-01 12:46] LABS: ABG HCO3 38 mmol/L (23-28); ABG PCO2 79 mmHg (41-51)
[2019-08-01] MEDS ORDERED: HYDROXYCHLOROQUINE SULFATE 200 MG TAB PO ONE (13:40)
[2019-08-01] MEDS: ENOXAPARIN SOD INJ 40 MG/0.4 ML SYR SC SCH (16:42)
[2019-08-01 18:13] LABS: ABG BASE EXCESS 7.3 mmol/L (-2 - 3); ABG HCO3 34 mmol/L (23-28); ABG PCO2 58 mmHg (41-51); ABG PH 7.39 (7.31-7.41)
--- NOTE | 2019-08-01 19:50 | Progress Note ---
DATE: 08/01/2019 I addressed the issue of tracheostomy guidance for the COVID-19 pandemic with the chief for Thoracic Surgery of [employer] [facility] [employer]. I asked them if they had a policy in place regarding performing tracheostomy on COVID-19 patients that require prolonged ventilator support and I also asked how long are the patient is on the ventilator before they believe the risk of tracheostomy and exposure of staff is worthy relatively small risk of continued endotracheal intubation. The response came from Mike Davenport MD, chief division of Thoracic Surgery at the [facility]. He responded by saying that he was on the COVID task force that was assembled this week to revise policy procedures for the OR and the wake of the COVID crisis. He reported they currently do not have a written policy that addresses this specific situation, however, they have canceled all elective surgeries for the immediate future. He reported a trach for an intubated ICU patient and is almost always elective, and therefore would certainly just continue oral tracheal intubation until the patient tested negative. He reported that from what I understand that should happen in approximately 2 weeks. The added risk of oral tracheal intubation for another 2 weeks should be minimal and he reported an airway procedure particularly a bloody one likely trach has the highest risk of aerosolizing the virus. Several hours after his response, the [place] [employer] came out with a policy for tracheostomy recommendations during the COVID-19 pandemic. As part of their recommendations, they reported there is no anticipated timing for viral clearance and critically ill patients may have significantly longer positive testing lasting at least 2 to 3 weeks. They reported that decision making a tracheostomy should take into consideration the surgical and ICU team's discretion as well as institutional policy and the tracheostomy can be considered in patients with stable pulmonary status, but should not take place sooner than 2 to 3 weeks from intubation and preferably with negative COVID-19 testing. It is my opinion that this patient has minimal risk associated with continued oral tracheal intubation and based on guidelines from [place] [employer] as well as a national leader of the COVID crisis that it would be reasonable to continue to postpone the tracheostomy. I will continue to follow this patient and make recommendations accordingly. Abhinav R Kearns, MD [facility]/DENICEL /[id number] MTDD
[2019-08-01] MEDS ORDERED: HYDROXYCHLOROQUINE SULFATE 200 MG TAB PO SCH (21:30)
[2019-08-01] MEDS ORDERED: HYDROXYCHLOROQUINE SULFATE 200 MG TAB ONE (21:56)
[2019-08-01] MEDS: INSULIN GLARGINE 100 UNITS/ML VIAL SQ SCH (22:25)
--- NOTE | 2019-08-01 22:32 | Diagnostic Imaging Report ---
EXAMINATION: CHEST XRAY LINE PLACEMENT INDICATION: PICC line placement, verify position COMPARISON: Chest x-ray 07/29/2019 FINDINGS: TUBES and LINES: New right upper extremity PICC, tip terminates in the superior cavoatrial atrial junction. Right IJ CVC unchanged, tip at the superior cavoatrial junction. ET tube tip 6.8 cm above georgi. Enteric tube unchanged, courses into abdomen, tip out of field of view. LUNGS: Right mid/lower lung haziness. There is obscuration of the hemidiaphragms. Left lower lung consolidation. PLEURA: No pleural effusion or pneumothorax. HEART AND MEDIASTINUM: The cardiomediastinal silhouette is unremarkable. BONES AND SOFT TISSUES: No acute osseous lesion. Soft tissues are unremarkable. UPPER ABDOMEN: No free air under the diaphragm. IMPRESSION: New right upper extremity PICC, tip terminates in the superior cavoatrial atrial junction. ET tube tip 6.8 cm above georgi, consider advancement. Persistent findings concerning of multifocal pneumonia/ ARDS. Superimposed edema is possible. Signed by: Bruno Stephen DO on 08/01/2019 10:28 PM
[2019-08-01] MEDS: AZITHROMYCIN 500MG/NS 250 ML 250 ML IV SCH (23:35)
[2019-08-02] VITALS (23 sets, daily range): BP systolic 109–178; BP diastolic 62–100
[2019-08-02] MEDS: PROPOFOL IV EMULSION 10MG/ML 100 ML IV SCH (01:00)
[2019-08-02] MEDS: MIDAZOLAM HCL 25 MG in SODIUM CHLORIDE 0.9% 50ML 45 ML IV PRN ×3 (01:45→22:30)
[2019-08-02] MEDS: LORAZEPAM INJ 2 MG/ML VIAL IV SCH ×6 (01:45→21:30)
[2019-08-02] MEDS: CISATRACURIUM BESYLATE 100 MG in SODIUM CHLORIDE 0.9% 100 ML 50 ML IV PRN ×4 (03:54→12:00)
[2019-08-02 05:30] LABS: BASOPHILS % 0.3 % (0.0-1.0); EOSINOPHILS # (AUTO) 0.1 (0.0-0.4); EOSINOPHILS % 0.8 % (0.0-6.0); HEMATOCRIT 33.4 % (38.2-49.6); HEMOGLOBIN 10.4 g/dL (14.0-18.0); LYMPHOCYTES # (AUTO) 0.5 (1.0-3.2); LYMPHOCYTES % 5.2 % (18.0-39.1); MEAN CORPUSCULAR HEMOGLOBIN 30.5 pg (28-32); MEAN CORPUSCULAR HGB CONC 31.1 g/dL (31-35); MEAN CORPUSCULAR VOLUME 97.9 fL (81-99); MONOCYTES # (AUTO) 0.8 (0.2-0.8); MONOCYTES % 8.8 % (4.4-11.3); NEUTROPHILS # (AUTO) 7.5 (2.1-6.9); NEUTROPHILS % 83.1 % (38.7-80.0); PLATELET COUNT 306 x10e3/uL (140-360); RED BLOOD COUNT 3.41 x10e6/uL (4.3-5.7); RED CELL DISTRIBUTION WIDTH 12.3 % (11.7-14.4)
[2019-08-02] MEDS: MEROPENEM 1GM 100 ML IV SCH ×3 (05:45→22:00)
[2019-08-02 05:52] LABS: CALCIUM 8.3 mg/dL (8.4-10.2); CHLORIDE 102 mmol/L (98-107); POTASSIUM 4.2 mmol/L (3.5-5.1); SODIUM 143 mmol/L (136-145)
[2019-08-02 06:24] LABS: ALANINE AMINOTRANSFERASE 21 IU/L (0-55); ALBUMIN 1.3 g/dL (3.5-5.0); ALBUMIN/GLOBULIN RATIO 0.3 (0.8-2.0); ALKALINE PHOSPHATASE 118 IU/L (40-150); ANION GAP 13.2 mmol/L (8-16); BLOOD UREA NITROGEN 25 mg/dL (7-26); BUN/CREATININE RATIO 27 (6-25); CARBON DIOXIDE 32 mmol/L (22-29); CREATININE, SERUM 0.94 mg/dL (0.72-1.25); EST GLOMERULAR FILTRATION RATE > 60 ML/MIN (60-); GLUCOSE 159 mg/dL (74-118)
[2019-08-02] MEDS: EYE LUBRICANT OPTH OINT 3.5GM TUBE OP SCH ×3 (08:06→21:30)
[2019-08-02] MEDS: ASPIRIN 81 MG CHEW TAB PO SCH (08:06)
[2019-08-02] MEDS: NOREPINEPHRINE 8 MG/D5W 250 ML 250 ML IV SCH (08:07)
[2019-08-02] MEDS: METOPROLOL TARTRATE 25 MG TAB PO SCH ×2 (08:07→16:36)
[2019-08-02] MEDS: CLOPIDOGREL BISULFATE 75 MG TAB PO SCH (08:07)
[2019-08-02] MEDS: HYDROXYCHLOROQUINE SULFATE 200 MG TAB PO SCH ×2 (08:07→21:30)
--- NOTE | 2019-08-02 10:41 | Progress Note ---
DATE: 08/02/2019 CHIEF COMPLAINT/HISTORY OF PRESENT ILLNESS: This is a 48-year-old white man, whose primary treating diagnosis is acute respiratory failure/ARDS secondary to COVID- 19 infection. He is currently on a ventilator. The patient underwent a chest x- ray yesterday on August 01, 2019, which revealed persistent findings concerning for multifocal pneumonia/ARDS with possible superimposed edema. This gentleman has known history of coronary artery disease. Today's white blood cell count is 9000 with 83% segmented neutrophils. Hemoglobin 10.4 g/dL. Today's BUN and creatinine are 25 and 0.94 respectively. Potassium 4.2. Albumin is 1.3. On admission, his hemoglobin A1c was 14.9%. REVIEW OF SYSTEMS: As per HPI. PHYSICAL EXAMINATION: GENERAL: He is sedated. He is currently intubated on a ventilator in a prone position. VITAL SIGNS: Heart rate 90, oxygen saturation 92% on FiO2 of 70%, blood pressure 116/96, temperature is 98.3. The highest temperature in last 24 hours is 99 at noon yesterday. Respiratory rate 26. INTEGUMENT: Skin is warm and dry. No pallor, jaundice, or diaphoresis. HEENT: The patient has orogastric tube in place, in which he is receiving tube feeds and he is tolerating well. NECK: Supple. CARDIOVASCULAR: Tachycardic rate. LUNGS: Coarse breath sounds bilaterally. ABDOMEN: Obese yet benign. EXTREMITIES: No edema or deformity. NEUROLOGIC: The patient is sedated and paralyzed. DIAGNOSES: 1. Acute COVID-19 infection. 2. Acute respiratory failure. 3. Acute respiratory distress syndrome. 4. Bilateral multifocal pneumonia. 5. Type 2 diabetes mellitus (uncontrolled). 6. Coronary artery disease. PLAN: 1. Continue supportive care. 2. Continue intravenous meropenem and azithromycin. 3. I agree with commencement of hydroxychloroquine 200 mg per orogastric tube twice a day. 4. Gentle intravenous fluids. 5. Order daily chest x-ray. I spent 30 minutes in the care of this intensive care unit patient. MD LORIE Herbert/JAGDISH /[id number]
[2019-08-02] MEDS: FLUCONAZOLE 400MG/200ML BAG 200 ML IV SCH (11:59)
--- NOTE | 2019-08-02 13:17 | Progress Note ---
DATE: SUBJECTIVE: The patient is back in the prone position. He remains on an assist control at rate of 26 with a tidal volume of 370 and a PEEP of 16. His FiO2 is set at 70%. His A-line is intact. He had a PICC line placed yesterday and the central line was removed. PHYSICAL EXAMINATION: VITAL SIGNS: The patient is afebrile. The blood pressure is 145/77 and saturation is 92%. He is on assist control at a rate of 26 with a tidal volume of 370 and 16 of PEEP. His FiO2 is set at 70%. HEENT: Shows no facial swelling or erythema. There is an oral endotracheal tube. The patient has a PICC line in place and an A-line. CARDIAC: Reveals regular rate and rhythm with normal S1 and S2. LUNGS: Auscultation of lungs reveals crackles in both lung salas. ABDOMEN: Soft and nontender. There is no rebound or guarding. EXTREMITIES: Shows no leg edema or calf tenderness. There is no cyanosis or clubbing. SKIN: Shows no rashes. LABORATORY DATA: White blood cell count is 9 and the hemoglobin is 10.4. The platelet count is 306. The BUN to creatinine ratio is 25 to 0.94. The other electrolytes are within normal limits. Albumin is 1.3. RADIOGRAPHIC DATA: Chest x-ray shows bilateral pulmonary infiltrates. IMPRESSION: 1. Acute respiratory failure. 2. Acute respiratory distress syndrome. 3. COVID-19 infection. 4. Diabetes. PLAN: 1. Continue current ventilation and try and wean FiO2 as tolerated. 2. Continue Versed and fentanyl for sedation. Try and decrease Nimbex as tolerated. 3. Continue current antibiotics. 4. Continue to monitor blood counts and electrolytes. 5. Case discussed with nursing, Respiratory, and Infectious Disease. Greater than 35 minutes in direct critical care time. Joseph Ch MD [facility]/MODL /[id number]
[2019-08-02] MEDS ORDERED: PROPOFOL IV EMULSION 10MG/ML 100 ML ONE (15:01)
[2019-08-02] MEDS ORDERED: FUROSEMIDE INJ 10 MG/ML 4 ML VIAL IV ONE (16:30)
[2019-08-02] MEDS: ENOXAPARIN SOD INJ 40 MG/0.4 ML SYR SC SCH (16:36)
--- NOTE | 2019-08-02 17:07 | Progress Note ---
DATE: SUBJECTIVE: Mr. Gonsalez remains in the intensive care unit and intubated. He is on a prone physician. His vitals seem to be stable. His vent settings also seem to be stable. Discussed with the medical team. REVIEW OF SYSTEMS: Could not be obtained. LABORATORY DATA: His blood cultures show gram-positive cocci from 07/31 in one set. His white count is 9.02 and hemoglobin 12. Sodium 143, potassium 4.2 with a creatinine of 0.94. PHYSICAL EXAMINATION: GENERAL: He is currently intubated in a prone position. VITAL SIGNS: His temperature 97. No fever since July 29. HEENT: He is not icteric. NECK: Supple. CHEST: Few rhonchi. COR: S1 and S2. No S3, S4, or murmurs. ABDOMEN: Soft. IMPRESSION: 1. COVID-19 acute. 2. Respiratory failure with acute respiratory distress syndrome. 3. Superimposed bacterial infection. 4. Acute respiratory distress syndrome. 5. Bacteremia gram-positive cocci. PLAN: He is currently on fluconazole. This is day #2 of hydroxychloroquine to finish 5 days according to up-to-date recommendation. I was not able to involve the patient in any study. I tried. He is currently on meropenem. We will add vancomycin. We will continue Zithromax. We will also continue to do daily EKG while is on chloroquine. Continue with the ventilator. Supportive care. Hold the feeding since I was concerned probably aspirated. The last time we started the feeding tube, there was some feeding material in his mouth. Discussed with the nurse. MD SHANNAN Jaramillo/MODKirti /[id number]
[2019-08-02] MEDS: INSULIN GLARGINE 100 UNITS/ML VIAL SQ SCH (22:12)
[2019-08-02] MEDS: FENTANYL CITRATE INJ 2,000 MCG in SODIUM CHLORIDE 0.9% 250ML 210 ML IV PRN (22:30)
[2019-08-02 22:39] LABS: ABG BASE EXCESS 5.8 mmol/L (-2 - 3); ABG HCO3 33 mmol/L (23-28); ABG PCO2 60 mmHg (41-51); ABG PH 7.36 (7.31-7.41)
[2019-08-03] VITALS (26 sets, daily range): BP systolic 102–202; BP diastolic 62–105
[2019-08-03] MEDS ORDERED: PROPOFOL IV EMULSION 10MG/ML 100 ML ONE (02:41)
[2019-08-03] MEDS: AZITHROMYCIN 500MG/NS 250 ML 250 ML IV SCH (02:45)
[2019-08-03] MEDS: LORAZEPAM INJ 2 MG/ML VIAL IV SCH ×2 (02:45→06:41)
[2019-08-03] MEDS: CISATRACURIUM BESYLATE 100 MG in SODIUM CHLORIDE 0.9% 100 ML 50 ML IV PRN ×2 (02:45→22:45)
[2019-08-03] MEDS: MIDAZOLAM HCL 25 MG in SODIUM CHLORIDE 0.9% 50ML 45 ML IV PRN ×2 (02:45→08:44)
[2019-08-03] MEDS: PROPOFOL IV EMULSION 10MG/ML 100 ML IV PRN ×2 (02:45→21:00)
[2019-08-03 05:42] LABS: BASOPHILS % 0.3 % (0.0-1.0); EOSINOPHILS # (AUTO) 0.1 (0.0-0.4); EOSINOPHILS % 1.3 % (0.0-6.0); HEMATOCRIT 32.5 % (38.2-49.6); HEMOGLOBIN 10.1 g/dL (14.0-18.0); LYMPHOCYTES # (AUTO) 0.9 (1.0-3.2); LYMPHOCYTES % 12.1 % (18.0-39.1); MEAN CORPUSCULAR HEMOGLOBIN 30.6 pg (28-32); MEAN CORPUSCULAR HGB CONC 31.1 g/dL (31-35); MEAN CORPUSCULAR VOLUME 98.5 fL (81-99); MONOCYTES # (AUTO) 0.8 (0.2-0.8); MONOCYTES % 9.8 % (4.4-11.3); NEUTROPHILS # (AUTO) 5.8 (2.1-6.9); NEUTROPHILS % 75.3 % (38.7-80.0); PLATELET COUNT 346 x10e3/uL (140-360); RED CELL DISTRIBUTION WIDTH 12.4 % (11.7-14.4)
[2019-08-03 05:53] LABS: INR 1.04; PROTHROMBIN TIME 14.2 seconds (11.9-14.5)
[2019-08-03 05:57] LABS: ALANINE AMINOTRANSFERASE 19 IU/L (0-55); ALBUMIN 1.4 g/dL (3.5-5.0); ALBUMIN/GLOBULIN RATIO 0.3 (0.8-2.0); ALKALINE PHOSPHATASE 102 IU/L (40-150); ANION GAP 9.1 mmol/L (8-16); BLOOD UREA NITROGEN 26 mg/dL (7-26); BUN/CREATININE RATIO 24 (6-25); CALCIUM 8.3 mg/dL (8.4-10.2); CARBON DIOXIDE 38 mmol/L (22-29); CHLORIDE 102 mmol/L (98-107); CREATININE, SERUM 1.09 mg/dL (0.72-1.25); EST GLOMERULAR FILTRATION RATE > 60 ML/MIN (60-); GLUCOSE 124 mg/dL (74-118); POTASSIUM 4.1 mmol/L (3.5-5.1); SODIUM 145 mmol/L (136-145)
[2019-08-03] MEDS: MEROPENEM 1GM 100 ML IV SCH (06:41)
[2019-08-03] MEDS: ASPIRIN 81 MG CHEW TAB PO SCH (08:23)
[2019-08-03] MEDS: METOPROLOL TARTRATE 25 MG TAB PO SCH ×2 (08:23→17:43)
[2019-08-03] MEDS: HYDROXYCHLOROQUINE SULFATE 200 MG TAB PO SCH ×2 (08:23→22:25)
[2019-08-03] MEDS: CLOPIDOGREL BISULFATE 75 MG TAB PO SCH (08:23)
[2019-08-03] MEDS: EYE LUBRICANT OPTH OINT 3.5GM TUBE OP SCH ×3 (08:23→22:25)
[2019-08-03] MEDS: FENTANYL CITRATE INJ 2,000 MCG in SODIUM CHLORIDE 0.9% 250ML 210 ML IV PRN (08:43)
[2019-08-03] MEDS: ACETAMINOPHEN 325 MG TAB PO PRN (08:50)
[2019-08-03] MEDS ORDERED: SODIUM CHLORIDE 0.45% 1,000 ML IV ONE (09:00)
--- NOTE | 2019-08-03 09:19 | Progress Note ---
DATE: SUBJECTIVE: The patient is now in the prone position. He required more suctioning this morning. Last night, his Nimbex since sedation was held for a sedation holiday. He became hypertensive and agitated, but did not have any purposeful movements or respond. He had to be placed back on the sedation for his respiratory status and hemodynamics. The patient is now on assist control with a tidal volume of 370 and a rate of 26. His FiO2 is set at 80% and his PEEP is set at 16. He is no longer having fevers. PHYSICAL EXAMINATION: VITAL SIGNS: The blood pressure is 147/80 and the heart rate is 108. He is on AC mode of ventilation at a rate of 26 with a tidal volume of 370 and his saturation of 80%. The PEEP is set at 16. He is on Nimbex. He is also on Versed at 7 mg as well as fentanyl at 200 mcg. HEENT: Shows no facial swelling or erythema. CARDIAC: Reveals a regular rate and rhythm with normal S1 and S2. RESPIRATORY: Auscultation of lungs reveal crackles in the lung salas. There is no wheezing. ABDOMEN: Soft and nontender. There is no rebound or guarding. EXTREMITIES: Show no leg edema or calf tenderness. There is an A-line in place. There is a PICC line in place. LABORATORY DATA: BUN to creatinine ratio is increased to 28/1.04. Sodium is 145. The other electrolytes are within normal limits. Albumin is 1.2. Hemoglobin is 10.1, the white blood cell count is 7.75, and the platelet count is 346. Blood gas is 7.36, 60, 63, and 33. IMPRESSION: 1. Acute respiratory failure. 2. Acute respiratory distress syndrome. 3. COVID-19 infection. 4. Hypertension. 5. Diabetes. PLAN: 1. The patient will require tracheostomy. I have discussed this with ENT. ENT feels that the tracheostomy is an elective procedure and the risks would not outweigh the benefits in this case. I will also seek a second opinion regarding this issue. 2. Continue Versed and fentanyl for sedation as well as Nimbex. 3. Continue current antibiotics. 4. Additional IV fluids today because of the increased creatinine. 5. Add enteral feedings as tolerated when not in the prone position. 6. DVT prophylaxis. 7. Skin care. 8. Eye care. 9. Case discussed with Nursing, Respiratory, ENT, and mother. Greater than 35 minutes in direct critical care time. MD RITA Moscoso/JAGDISH /[id number]
--- NOTE | 2019-08-03 10:25 | Progress Note ---
DATE: 08/03/2019 CHIEF COMPLAINT/HISTORY OF PRESENT ILLNESS: This is a 48-year-old white man, whose primary treating diagnosis is acute COVID-19 infection with bilateral pneumonia. He is in acute respiratory failure and currently on a ventilator. In fact, he is displaying signs and symptoms consistent with acute respiratory distress syndrome. The patient has been in a prone position 16 hours out of the day because of his ARDS. The patient has oxygen saturation 92% with FiO2 of 75%. Today's blood work revealed white blood cell count of 7700 with 75% segmenters. His hemoglobin is 10.1 g/dL. The patient's BUN and creatinine today is 26 and 1.09 respectively. The patient's albumin is 1.4 g/dL. Nurses state that it is becoming harder to suction the patient's tracheostomy tube. REVIEW OF SYSTEMS: As per HPI. PHYSICAL EXAMINATION: GENERAL: He is sedated and intubated as previously stated. He is currently in a prone position. Once again, oxygen saturation 92% on FiO2 of 75%, heart rate is 82, respiratory rate 26, blood pressure is 110/80. The highest temperature in the last 24 hours is 98.6, that was at midnight. Currently, it is 98.4. INTEGUMENT: Skin is warm and dry. No pallor, jaundice, or diaphoresis. The patient has no skin breakdown. HEENT: Anicteric sclerae, moist mucous membranes. The patient has an endotracheal tube and orogastric tube in place. NECK: Supple. CARDIOVASCULAR: Regular rate and rhythm. LUNGS: The patient has coarse breath sounds bilaterally with diminished breath sounds at the bases. ABDOMEN: Obese and benign. EXTREMITIES: No edema or deformity. NEUROLOGIC: The patient is sedated and paralyzed on the ventilator as previous stated. DIAGNOSES: 1. Acute COVID-19 infection with bilateral pneumonia, disease. 2. Acute hypoxic respiratory failure. 3. Acute respiratory distress syndrome. 4. Bilateral multifocal pneumonia. 5. Type 2 diabetes mellitus (uncontrolled). 6. Coronary artery disease. PLAN: 1. Continue supportive care. 2. The corporate security officer's, namely Dr. Joseph Ch states that tracheostomy tube placement is an emergent matter and would definitely be a life-saving for this gentleman. 3. Continue intravenous meropenem and azithromycin. 4. Agree with hydroxychloroquine 200 mg per orogastric tube twice a day. 5. We will follow daily chest x-rays as well as lab work. TIME SPENT: I spent 35 minutes in the care of this intensive care unit patient. MD LORIE Herbert/JAGDISH /[id number]
[2019-08-03 11:49] LABS: ABG PCO2 72 mmHg (41-51); ABG PH 7.35 (7.31-7.41)
[2019-08-03 11:50] LABS: ABG BASE EXCESS 9.6 mmol/L (-2 - 3); ABG HCO3 39 mmol/L (23-28)
[2019-08-03] MEDS: FLUCONAZOLE 400MG/200ML BAG 200 ML IV SCH (12:00)
[2019-08-03] MEDS: OXYMETAZOLINE HCL 0.05% NAS 1 SPRAY BTL SCH ×2 (13:34→22:25)
[2019-08-03] MEDS: ENOXAPARIN SOD INJ 40 MG/0.4 ML SYR SC SCH (17:43)
[2019-08-03] MEDS: INSULIN GLARGINE 100 UNITS/ML VIAL SQ SCH (21:00)
--- NOTE | 2019-08-03 21:58 | Diagnostic Imaging Report ---
EXAMINATION: CHEST SINGLE (PORTABLE) INDICATION: Bilateral pneumonia COMPARISON: Chest x-ray 08/01/2019, 07/28/2069, 07/28/2019 FINDINGS: TUBES and LINES: The ET tube tip is 10 cm above the georgi. Right upper extremity PICC tip terminates in the superior cavoatrial junction. Enteric tube courses into abdomen, tip out of field of view. LUNGS: Lungs are hyperinflated. Increased haziness in the mid to lower lungs now with some consolidative opacities and bronchograms. Partially obscured portions of the hemidiaphragms. PLEURA: No pleural effusion or pneumothorax. HEART AND MEDIASTINUM: The cardiomediastinal silhouette is unremarkable. BONES AND SOFT TISSUES: No acute osseous lesion. Soft tissues are unremarkable. UPPER ABDOMEN: No free air under the diaphragm. IMPRESSION: The ET tube tip is 10 cm above the georgi, recommend 5 cm advancement. Worsening diffuse airspace disease of ARDS since 07/29/2019. Trace pleural effusions are possible. Findings discussed with ICU nurse Jose at 9:50 PM on 08/03/[address] Stephen via telephone. Signed by: Bruno Stephen DO on 08/03/2019 9:55 PM
[2019-08-03] MEDS ORDERED: MEROPENEM 1GM 100 ML IV ONE (22:44)
--- NOTE | 2019-08-03 23:51 | Diagnostic Imaging Report ---
EXAMINATION: CHEST SINGLE (PORTABLE) INDICATION: ET tube advancement, verify position COMPARISON: Chest x-ray 08/03/2019 FINDINGS: TUBES and LINES: The ET tube has been advanced, tip now 2.2 cm above georgi.. Enteric tube courses into abdomen, tip out of field of view. Right upper extremity PICC tip terminates at the superior cavoatrial junction. LUNGS: Large lung volumes. Diffuse haziness of the right midlung worse in the mid and lower lung where there are consolidative basilar opacities. Haziness and left mid and lower lung, worst in the lower lung where there are consolidative opacities. PLEURA: No pleural effusion or pneumothorax. HEART AND MEDIASTINUM: The cardiomediastinal silhouette is unremarkable. BONES AND SOFT TISSUES: No acute osseous lesion. Soft tissues are unremarkable. UPPER ABDOMEN: No free air under the diaphragm. IMPRESSION: The ET tube is now 2.2 cm above the georgi, slightly low if the patient's head is in neutral position. [place] position of endotracheal tube tip above the georgi for different head positions -Head flexed: 3 cm (?2 cm) above georgi -Head neutral: 5 cm (?2 cm) above georgi -Head extended: 7 cm (?2 cm) above georgi Persistent findings of ARDS. Signed by: Bruno Stephen DO on 08/03/2019 11:48 PM
[2019-08-04] VITALS (25 sets, daily range): BP systolic 119–178; BP diastolic 69–96
[2019-08-04] MEDS ORDERED: MEROPENEM 1GM 100 ML IV ONE
[2019-08-04 01:06] LABS: ABG BASE EXCESS 6.3 mmol/L (-2 - 3); ABG HCO3 33 mmol/L (23-28); ABG PCO2 56 mmHg (41-51); ABG PH 7.39 (7.31-7.41)
[2019-08-04] MEDS: AZITHROMYCIN 500MG/NS 250 ML 250 ML IV SCH (01:45)
[2019-08-04] MEDS: MIDAZOLAM HCL 25 MG in SODIUM CHLORIDE 0.9% 50ML 45 ML IV PRN ×5 (01:45→22:45)
[2019-08-04] MEDS: CISATRACURIUM BESYLATE 100 MG in SODIUM CHLORIDE 0.9% 100 ML 50 ML IV PRN ×3 (03:55→12:56)
[2019-08-04] MEDS: MEROPENEM 1GM 100 ML IV SCH ×3 (05:15→22:45)
[2019-08-04] MEDS: PROPOFOL IV EMULSION 10MG/ML 100 ML IV PRN ×2 (05:15→12:20)
[2019-08-04] MEDS: FENTANYL CITRATE INJ 2,000 MCG in SODIUM CHLORIDE 0.9% 250ML 210 ML IV PRN ×2 (05:15→15:51)
[2019-08-04 06:19] LABS: BASOPHILS % 0.4 % (0.0-1.0); EOSINOPHILS # (AUTO) 0.2 (0.0-0.4); EOSINOPHILS % 2.5 % (0.0-6.0); LYMPHOCYTES # (AUTO) 0.8 (1.0-3.2); LYMPHOCYTES % 11.1 % (18.0-39.1); MEAN CORPUSCULAR HGB CONC 31.3 g/dL (31-35); MEAN CORPUSCULAR VOLUME 99.1 fL (81-99); MONOCYTES # (AUTO) 0.6 (0.2-0.8); MONOCYTES % 8.2 % (4.4-11.3); NEUTROPHILS # (AUTO) 5.4 (2.1-6.9); NEUTROPHILS % 76.4 % (38.7-80.0); PLATELET COUNT 289 x10e3/uL (140-360); RED BLOOD COUNT 3.23 x10e6/uL (4.3-5.7); RED CELL DISTRIBUTION WIDTH 12.4 % (11.7-14.4)
[2019-08-04 06:37] LABS: ALANINE AMINOTRANSFERASE 17 IU/L (0-55); ALBUMIN 1.3 g/dL (3.5-5.0); ALBUMIN/GLOBULIN RATIO 0.3 (0.8-2.0); ALKALINE PHOSPHATASE 87 IU/L (40-150); ANION GAP 12.8 mmol/L (8-16); BLOOD UREA NITROGEN 19 mg/dL (7-26); BUN/CREATININE RATIO 22 (6-25); CALCIUM 7.8 mg/dL (8.4-10.2); CARBON DIOXIDE 32 mmol/L (22-29); CHLORIDE 104 mmol/L (98-107); CREATININE, SERUM 0.86 mg/dL (0.72-1.25); EST GLOMERULAR FILTRATION RATE > 60 ML/MIN (60-); GLUCOSE 137 mg/dL (74-118); POTASSIUM 3.8 mmol/L (3.5-5.1); SODIUM 145 mmol/L (136-145)
[2019-08-04] MEDS: EYE LUBRICANT OPTH OINT 3.5GM TUBE OP SCH ×3 (08:43→21:30)
[2019-08-04] MEDS: OXYMETAZOLINE HCL 0.05% NAS 1 SPRAY BTL SCH ×2 (08:43→21:30)
[2019-08-04] MEDS: HYDROXYCHLOROQUINE SULFATE 200 MG TAB PO SCH (08:44)
[2019-08-04] MEDS: ASPIRIN 81 MG CHEW TAB PO SCH (08:44)
[2019-08-04] MEDS: METOPROLOL TARTRATE 25 MG TAB PO SCH ×2 (08:44→16:05)
[2019-08-04] MEDS: CLOPIDOGREL BISULFATE 75 MG TAB PO SCH (09:00)
[2019-08-04] MEDS ORDERED: SODIUM CHLORIDE 0.9% 250ML 250 ML ONE (10:40)
[2019-08-04] MEDS ORDERED: FUROSEMIDE INJ 10 MG/ML 4 ML VIAL IV ONE (10:55)
[2019-08-04] MEDS: FLUCONAZOLE 400MG/200ML BAG 200 ML IV SCH (11:29)
--- NOTE | 2019-08-04 11:56 | Diagnostic Imaging Report ---
EXAMINATION: CHEST SINGLE (PORTABLE) INDICATION: Respiratory failure, pneumonia COMPARISON: Chest radiograph 08/03/2019, chest CT 07/23/2019 FINDINGS: LINES/TUBES:Endotracheal tube terminates 3.8 cm above the georgi. Enteric tube projects below the diaphragm with tip not visualized. Right PICC line terminates in the superior vena cava. EKG leads overlie the chest. LUNGS:The lungs are moderately inflated. Unchanged bilateral lower lobe predominant airspace opacities. PLEURA:No pleural effusion or pneumothorax. MEDIASTINUM:The cardiomediastinal silhouette appears unchanged in size and shape. BONES/SOFT TISSUES:No acute osseous injury. ABDOMEN:No free air under the diaphragm. IMPRESSION: Unchanged bilateral lower lung predominant airspace opacities. Lines and tubes as above. Signed by: Frantz Singer MD on 08/04/2019 11:52 AM
--- NOTE | 2019-08-04 13:09 | Progress Note ---
DATE: 08/04/2019 SUBJECTIVE: Mr. Gonsalez remains in the intensive care unit. OBJECTIVE: VITAL SIGNS: Stable, currently afebrile. Temperature 98.6, heart rate of 88, respiration 26. GENERAL: He remains on the ventilator. Vent setting seems slightly better. Intubated, sedated. HEENT: Not icteric. NECK: Supple. CHEST: A few crackles. COR: No murmurs, soft. Blood cultures showing coagulase negative staph. IMPRESSION: 1. Acute respiratory distress syndrome. 2. Acute COVID-19, this is day #12. 3. Status post aspiration pneumonia. 4. Healthcare-associated pneumonia, on meropenem day #3. 5. Blood cultures contamination. 6. This is day #3 on Plaquenil. The plan is to finish 5 days. In three more days, we will stop all his antibiotics. If he continued to be stable, there are plans for him to have trach today, which I agree with. We will follow. MD SHANNAN Jaramillo/JAGDISH /[id number]
--- NOTE | 2019-08-04 13:19 | Progress Note ---
DATE: SUBJECTIVE: The patient remains on PRVC with a FiO2 of 90% and PEEP of 16. The tidal volume is set at 370. He is currently on paralytics as well as Versed and fentanyl. PHYSICAL EXAMINATION: VITAL SIGNS: The patient is afebrile. The blood pressure is 153/93 and saturation is 91%. HEENT: Shows no facial swelling or erythema. CARDIAC: Reveals regular rate and rhythm with a normal S1 and S2. LUNGS: Auscultation of lungs reveals clear breath sounds bilaterally. There are no crackles in both lung salas. HEART: There is regular rate and rhythm with normal S1 and S2. There are no murmurs or rubs. ABDOMEN: Soft and nontender. There is no rebound or guarding. EXTREMITIES: Shows no leg edema or calf tenderness. There is no cyanosis or clubbing. SKIN: Shows no rashes. NEUROLOGICAL: Shows no focal abnormalities. The patient is currently paralyzed and sedated. LABORATORY DATA: White blood cell count is 7.1 and the hemoglobin is 10. The platelet count is 289. The BUN to creatinine ratio is normal. The carbon dioxide is 32. Albumin is 1.3. RADIOGRAPHIC DATA: Chest x-ray shows persistent bilateral pulmonary infiltrates. Endotracheal tube is 3.8 cm above the georgi. There is a PICC line in place. IMPRESSION: 1. Zeskg-fs-xaradtk respiratory failure. 2. Acute respiratory distress syndrome. 3. Bilateral pneumonia secondary to COVID. 4. Diabetes out of control. PLAN: 1. Continue paralysis along with lung protective ventilation and proning. 2. The patient is scheduled for tracheostomy today. 3. Continue current antimicrobial regimen. 4. Monitor blood sugars and give insulin as needed. 5. Case discussed with Infectious Disease, mother, Respiratory, night guard nursing, dayshift nursing, and administration. Case also discussed with General Surgery and Internal Medicine. Greater than 35 minutes in direct critical care time. Joseph Ch MD [facility]/MODL /[id number]
--- NOTE | 2019-08-04 13:24 | Progress Note ---
DATE: SUBJECTIVE: Mr. Wallace Thompson remains in the intensive care unit, I have discussed the case with the primary care physician as well as Critical Care. The patient in the prone position requiring more monitoring and more suctioning. He is still on sedation. The patient had an episode of hypertension. He is currently on assist control, tidal volume 370, rate 26, FiO2 of 80%, PEEP of 16. No fever. REVIEW OF SYSTEMS: Could not be obtained. PHYSICAL EXAMINATION: GENERAL: He looks comfortable on the ventilator. HEENT: Not icteric. NECK: Supple. CHEST: Few rhonchi. COR: S1, S2. No S3, S4, or murmur. ABDOMEN: Soft. LABORATORY DATA: His BUN is 28, creatinine 1.04, sodium 145, albumin 1.2, hemoglobin of 10, white cells 7, cultures remains negative. Lab data reviewed. IMPRESSION: 1. Acute respiratory failure, acute respiratory distress syndrome. 2. Acute adult respiratory distress syndrome. 3. Acute infection with COVID-19. 4. Diabetes ketoacidosis present on admission from diabetes mellitus, not treated, noncompliant before he came here. 5. Hypertension. 6. Discussed with Internal Medicine and Pulmonary if need to for trach. The patient is cleared for Infectious Disease for a trach. The procedure could be done under negative pressure room. We are using N95 mask in addition to with our gowns and gloves and equipment as we do in all surgeries, preferably done in negative pressure room and surgery in OR. MD SHANNAN Jaramillo/JAGDISH /[id number]
[2019-08-04 13:34] LABS: ABG PO2 63 mmHg (80-105)
[2019-08-04 13:35] LABS: ABG OXYGEN SATURATION 90.9 % (95-98)
[2019-08-04 13:40] LABS: ABG OXYGEN SATURATION 92.8 % (95-98)
[2019-08-04 13:41] LABS: ABG PO2 67 mmHg (80-105)
[2019-08-04] MEDS: ENOXAPARIN SOD INJ 40 MG/0.4 ML SYR SC SCH (17:05)
[2019-08-04] MEDS: INSULIN GLARGINE 100 UNITS/ML VIAL SQ SCH (21:00)
[2019-08-04] MEDS ORDERED: ACETAZOLAMIDE SODIUM 500 MG/VIAL IV SCH (22:00)
[2019-08-05] VITALS (25 sets, daily range): BP systolic 99–166; BP diastolic 66–96
[2019-08-05] MEDS: PROPOFOL IV EMULSION 10MG/ML 100 ML IV PRN ×4 (00:45→22:15)
[2019-08-05] MEDS: FENTANYL CITRATE INJ 2,000 MCG in SODIUM CHLORIDE 0.9% 250ML 210 ML IV PRN ×3 (00:45→20:30)
[2019-08-05] MEDS: CISATRACURIUM BESYLATE 100 MG in SODIUM CHLORIDE 0.9% 100 ML 50 ML IV PRN ×4 (00:45→20:30)
[2019-08-05] MEDS: HYDROXYCHLOROQUINE SULFATE 200 MG TAB PO SCH ×3 (00:45→15:00)
[2019-08-05] MEDS: AZITHROMYCIN 500MG/NS 250 ML 250 ML IV SCH (04:00)
[2019-08-05 04:50] LABS: BASOPHILS % 0.4 % (0.0-1.0); EOSINOPHILS # (AUTO) 0.1 (0.0-0.4); EOSINOPHILS % 1.8 % (0.0-6.0); HEMATOCRIT 30.9 % (38.2-49.6); HEMOGLOBIN 9.6 g/dL (14.0-18.0); LYMPHOCYTES # (AUTO) 0.7 (1.0-3.2); MEAN CORPUSCULAR HEMOGLOBIN 30.7 pg (28-32); MEAN CORPUSCULAR HGB CONC 31.1 g/dL (31-35); MEAN CORPUSCULAR VOLUME 98.7 fL (81-99); MONOCYTES # (AUTO) 0.5 (0.2-0.8); MONOCYTES % 7.3 % (4.4-11.3); NEUTROPHILS % 80.6 % (38.7-80.0); PLATELET COUNT 307 x10e3/uL (140-360); RED BLOOD COUNT 3.13 x10e6/uL (4.3-5.7); RED CELL DISTRIBUTION WIDTH 12.3 % (11.7-14.4)
[2019-08-05 04:59] LABS: INR 1.03; PROTHROMBIN TIME 14.1 seconds (11.9-14.5)
[2019-08-05 05:08] LABS: ALANINE AMINOTRANSFERASE 14 IU/L (0-55); ALBUMIN 1.3 g/dL (3.5-5.0); ALBUMIN/GLOBULIN RATIO 0.3 (0.8-2.0); ALKALINE PHOSPHATASE 79 IU/L (40-150); BLOOD UREA NITROGEN 17 mg/dL (7-26); BUN/CREATININE RATIO 21 (6-25); CALCIUM 8.2 mg/dL (8.4-10.2); CARBON DIOXIDE 35 mmol/L (22-29); CHLORIDE 101 mmol/L (98-107); CREATININE, SERUM 0.82 mg/dL (0.72-1.25); EST GLOMERULAR FILTRATION RATE > 60 ML/MIN (60-); GLUCOSE 119 mg/dL (74-118); SODIUM 144 mmol/L (136-145)
[2019-08-05] MEDS: MIDAZOLAM HCL 25 MG in SODIUM CHLORIDE 0.9% 50ML 45 ML IV PRN ×4 (05:15→22:15)
[2019-08-05] MEDS: MEROPENEM 1GM 100 ML IV SCH ×3 (06:30→22:15)
[2019-08-05] MEDS: METOPROLOL TARTRATE 25 MG TAB PO SCH ×2 (09:00→15:30)
[2019-08-05] MEDS: OXYMETAZOLINE HCL 0.05% NAS 1 SPRAY BTL SCH ×2 (09:21→21:15)
[2019-08-05] MEDS: CLOPIDOGREL BISULFATE 75 MG TAB PO SCH (09:21)
[2019-08-05] MEDS: EYE LUBRICANT OPTH OINT 3.5GM TUBE OP SCH ×3 (09:21→21:15)
[2019-08-05] MEDS: ASPIRIN 81 MG CHEW TAB PO SCH (09:21)
[2019-08-05] MEDS: FLUCONAZOLE 400MG/200ML BAG 200 ML IV SCH (10:59)
[2019-08-05] MEDS ORDERED: ACETAZOLAMIDE SODIUM 500 MG/VIAL IV ONE (13:45)
[2019-08-05] MEDS: BALSAM PERU/CASTOR OIL 60 GM OINT...G. TP SCH (14:17)
--- NOTE | 2019-08-05 14:43 | Diagnostic Imaging Report ---
EXAMINATION: CHEST SINGLE (PORTABLE) INDICATION: Pneumonia COMPARISON: Multiple prior chest radiographs most recently 07/08/2019 FINDINGS: LINES/TUBES:Endotracheal tube terminates 4 cm above the georgi. Enteric tube projects the diaphragm out of the [id number]. Right PICC line terminates in the superior vena cava. EKG leads overlie the chest. LUNGS:The lungs are moderately inflated. Unchanged bilateral lower lung predominant airspace opacities and consolidation. PLEURA:No pleural effusion or pneumothorax. MEDIASTINUM:The cardiomediastinal silhouette appears unchanged in size and shape. BONES/SOFT TISSUES:No acute osseous injury. ABDOMEN:No free air under the diaphragm. IMPRESSION: Unchanged bilateral lower lung airspace opacities and consolidation. Signed by: Frantz Singer MD on 08/05/2019 2:39 PM
[2019-08-05] MEDS: ACETAMINOPHEN 325 MG TAB PO PRN (14:55)
[2019-08-05] MEDS: ENOXAPARIN SOD INJ 40 MG/0.4 ML SYR SC SCH (16:44)
--- NOTE | 2019-08-05 16:46 | Progress Note ---
DATE: SUBJECTIVE: The patient's tracheostomy was postponed today. He continues on PRVC mode of ventilation with tidal volumes of 370 and PEEP of 18. His saturation is 91% and his FiO2 is 100%. He does have some low-grade fevers of 100.2. PHYSICAL EXAMINATION: VITAL SIGNS: The patient is afebrile. The blood pressure is 120/76 and the saturation is 91%. HEENT: Shows no facial swelling or erythema. There is an oral endotracheal tube in place. CARDIAC: Reveals regular rate and rhythm with normal S1 and S2. LUNGS: Auscultation of lungs reveals rhonchorous breath sounds bilaterally. There is no wheezing. ABDOMEN: Soft and nontender. There is no rebound or guarding. EXTREMITIES: Shows no leg edema or calf tenderness. There is no cyanosis or clubbing. SKIN: Shows no rashes. NEUROLOGICAL: Shows no focal abnormalities. LABORATORY DATA: White blood cell count is 7.4 and hemoglobin is 9.6. The platelet count is 307. BUN to creatinine ratio is normal. The other electrolytes are within normal limits. RADIOGRAPHIC DATA: Unchanged bilateral lower lobe airspace opacities and consolidation. IMPRESSION: 1. Waktg-az-zjmbtcu respiratory failure. 2. Acute respiratory distress syndrome. 3. Bilateral pneumonia secondary to COVID-19. 4. Diabetes out of control. PLAN: 1. The patient will be switched back to prone ventilation. 2. Continue lung protective ventilation with high PEEP and low tidal volume. 3. Tracheostomy has been postponed and will be re-evaluated in 2 days. 4. Continue to monitor blood sugars and give insulin as needed. 5. Case discussed with General Surgery, anesthesia, retail shift manager nursing, dayshift nursing and Respiratory. Greater than 35 minutes in direct critical care time. Joseph Ch MD [facility]/MODL /[id number]
--- NOTE | 2019-08-05 19:46 | Progress Note ---
DATE: SUBJECTIVE: Mr. Gonsalez remains in intensive care unit. His status reviewed. Chart reviewed. Discussed with the medical team. We are giving updates to his mother daily. The patient who is on tidal volume of 370, PEEP of 18, saturation 91%. His T-max 100.2. REVIEW OF SYSTEMS: Nothing is new HEENT: Normocephalic. CHEST: Few rhonchi. COR: S1, S2. ABDOMEN: Soft. LABORATORY DATA: Reviewed. Cultures coagulase negative Staph represent contamination. White count 7.42. IMPRESSION AND PLAN: 1. Discussed with Critical Care, there may be a need for tracheostomy since we are approaching two weeks. Discussed with the staff that needs to be done, discussed with Anesthesia to take all precautions. I do not think obtaining PCR will help us, the patient still infectious. We are going to finish five days of treatment. 2. Status post aspiration. 3. We will follow. 4. Diabetes mellitus with ketoacidosis on presentation seems to be better. MD SHANNAN Jaramillo/JAGDISH /[id number]
[2019-08-05] MEDS: INSULIN GLARGINE 100 UNITS/ML VIAL SQ SCH (21:00)
[2019-08-06] VITALS (25 sets, daily range): BP systolic 77–182; BP diastolic 8–100
[2019-08-06] MEDS: AZITHROMYCIN 500MG/NS 250 ML 250 ML IV SCH (03:10)
[2019-08-06] MEDS: CISATRACURIUM BESYLATE 100 MG in SODIUM CHLORIDE 0.9% 100 ML 50 ML IV PRN ×3 (04:30→22:15)
[2019-08-06] MEDS: MIDAZOLAM HCL 25 MG in SODIUM CHLORIDE 0.9% 50ML 45 ML IV PRN ×2 (04:30→22:15)
[2019-08-06] MEDS: FENTANYL CITRATE INJ 2,000 MCG in SODIUM CHLORIDE 0.9% 250ML 210 ML IV PRN ×3 (04:48→22:45)
[2019-08-06 05:41] LABS: BASOPHILS # (AUTO) 0.1 (0.0-0.1); BASOPHILS % 0.6 % (0.0-1.0); EOSINOPHILS # (AUTO) 0.2 (0.0-0.4); EOSINOPHILS % 2.1 % (0.0-6.0); HEMATOCRIT 30.6 % (38.2-49.6); HEMOGLOBIN 9.3 g/dL (14.0-18.0); LYMPHOCYTES # (AUTO) 0.7 (1.0-3.2); LYMPHOCYTES % 7.8 % (18.0-39.1); MEAN CORPUSCULAR HEMOGLOBIN 30.3 pg (28-32); MEAN CORPUSCULAR HGB CONC 30.4 g/dL (31-35); MEAN CORPUSCULAR VOLUME 99.7 fL (81-99); MONOCYTES # (AUTO) 0.5 (0.2-0.8); MONOCYTES % 6.4 % (4.4-11.3); NEUTROPHILS # (AUTO) 6.9 (2.1-6.9); PLATELET COUNT 287 x10e3/uL (140-360); RED BLOOD COUNT 3.07 x10e6/uL (4.3-5.7); RED CELL DISTRIBUTION WIDTH 12.9 % (11.7-14.4)
[2019-08-06] MEDS: MEROPENEM 1GM 100 ML IV SCH ×2 (05:45→13:10)
[2019-08-06] MEDS: PROPOFOL IV EMULSION 10MG/ML 100 ML IV PRN ×2 (05:45→11:02)
[2019-08-06 06:13] LABS: ALANINE AMINOTRANSFERASE 11 IU/L (0-55); ALBUMIN 1.3 g/dL (3.5-5.0); ALBUMIN/GLOBULIN RATIO 0.3 (0.8-2.0); ALKALINE PHOSPHATASE 90 IU/L (40-150); BLOOD UREA NITROGEN 14 mg/dL (7-26); BUN/CREATININE RATIO 18 (6-25); CALCIUM 8.2 mg/dL (8.4-10.2); CARBON DIOXIDE 32 mmol/L (22-29); CHLORIDE 103 mmol/L (98-107); EST GLOMERULAR FILTRATION RATE > 60 ML/MIN (60-); GLUCOSE 130 mg/dL (74-118); MAGNESIUM 1.8 MG/DL (1.3-2.1); PHOSPHORUS 3.3 MG/DL (2.3-4.7); SODIUM 143 mmol/L (136-145)
[2019-08-06] MEDS: METOPROLOL TARTRATE 25 MG TAB PO SCH ×2 (08:44→18:11)
[2019-08-06] MEDS: EYE LUBRICANT OPTH OINT 3.5GM TUBE OP SCH ×3 (08:44→22:15)
[2019-08-06] MEDS: HYDROXYCHLOROQUINE SULFATE 200 MG TAB PO SCH ×2 (08:44→18:11)
[2019-08-06] MEDS: ASPIRIN 81 MG CHEW TAB PO SCH (08:44)
[2019-08-06] MEDS: BALSAM PERU/CASTOR OIL 60 GM OINT...G. TP SCH (08:44)
[2019-08-06] MEDS: CLOPIDOGREL BISULFATE 75 MG TAB PO SCH (08:44)
[2019-08-06] MEDS: FLUCONAZOLE 400MG/200ML BAG 200 ML IV SCH (11:02)
--- NOTE | 2019-08-06 11:37 | Diagnostic Imaging Report ---
EXAM: CHEST SINGLE (PORTABLE) DATE: 08/06/2019 9:00 AM INDICATION: Intubated COMPARISON: 08/05/2019 FINDINGS: Endotracheal tube tip again identified with distal tip terminating approximately 4.6 cm above georgi. Enteric tube noted coursing below the diaphragm. Right-sided PICC line identified in stable position. The trachea is midline. Again identified are bilateral airspace opacities within the lower lung zone predominance, unchanged from the prior examination. Trace pleural effusions are possible. No significant pleural effusion is present. The cardiomediastinal silhouette is unchanged in size/appearance. No acute osseous abnormality is identified. IMPRESSION: No significant interval change from 08/05/2019. Unchanged bilateral lower lung zone predominant airspace opacities. Signed by: Dr. Jn Charles MD on 08/06/2019 11:33 AM
[2019-08-06] MEDS ORDERED: ACETAZOLAMIDE SODIUM 500 MG/VIAL IV ONE ×2 (12:30→21:00)
[2019-08-06 14:17] LABS: ABG HCO3 34 mmol/L (23-28); ABG PCO2 68 mmHg (41-51); ABG PH 7.31 (7.31-7.41)
[2019-08-06 14:24] LABS: ABG HCO3 28 mmol/L (23-28); ABG PCO2 36 mmHg (41-51); ABG PH 7.49 (7.31-7.41)
--- NOTE | 2019-08-06 14:29 | Progress Note ---
DATE: SUBJECTIVE: The patient was placed in a prone position last night and is now back in the supine position. He remains on 18 of PEEP with a FiO2 of 90%. He is hemodynamically stable. He has less fever. He is receiving enteral feedings. PHYSICAL EXAMINATION: VITAL SIGNS: Blood pressure is 103/73, saturation is 90%. HEENT: Shows no facial swelling or erythema. CARDIAC: Reveals regular rate and rhythm with normal S1, S2. LUNGS: Auscultation of lungs reveals crackles at the bases. There is no wheezing. ABDOMEN: Soft, nontender. There is no rebound or guarding. EXTREMITIES: Show no leg edema or calf tenderness. There is no cyanosis or clubbing. SKIN: Shows no rashes. NEUROLOGICAL: Shows no focal abnormalities. RADIOGRAPHIC DATA: Chest x-ray shows bilateral lower lobe opacities. LABORATORY DATA: BUN to creatinine ratio is normal. Other electrolytes are within normal limits. White blood cell count is 8.4 and hemoglobin is 9.3. The platelet count is 297. IMPRESSION: 1. Acute respiratory failure. 2. Acute respiratory distress syndrome. 3. Bilateral pneumonia secondary to COVID-19. 4. Thrombocytopenia. 5. Diabetes out of control. PLAN: 1. Continue ventilation with a lung protective strategy. The patient is on high PEEP and low tidal volumes. 2. Continue enteral feedings. 3. DVT prophylaxis. 4. Skin care. 5. Eye care. 6. Re-evaluation for tracheostomy tomorrow. 7. Case discussed with Infectious Disease, Anesthesia, General Surgery, and Respiratory. Greater than 35 minutes in direct critical care time. Joseph Ch MD [facility]/MODL /[id number]
[2019-08-06] MEDS ORDERED: NOREPINEPHRINE 8 MG/D5W 250 ML 250 ML ONE (15:07)
[2019-08-06] MEDS: ENOXAPARIN SOD INJ 40 MG/0.4 ML SYR SC SCH (18:11)
[2019-08-06] MEDS: ACETAMINOPHEN 325 MG TAB PO PRN (18:11)
[2019-08-06] MEDS ORDERED: LORAZEPAM INJ 2 MG/ML VIAL IV ONE (18:55)
[2019-08-06] MEDS: INSULIN GLARGINE 100 UNITS/ML VIAL SQ SCH (21:00)
[2019-08-06] MEDS ORDERED: LORAZEPAM INJ 2 MG/ML VIAL ONE (22:05)
[2019-08-07] VITALS (25 sets, daily range): BP systolic 88–186; BP diastolic 49–97
[2019-08-07 01:41] LABS: BASOPHILS # (AUTO) 0.1 (0.0-0.1); BASOPHILS % 0.6 % (0.0-1.0); EOSINOPHILS % 0.1 % (0.0-6.0); HEMATOCRIT 35.4 % (38.2-49.6); HEMOGLOBIN 10.7 g/dL (14.0-18.0); LYMPHOCYTES # (AUTO) 0.7 (1.0-3.2); LYMPHOCYTES % 3.3 % (18.0-39.1); MEAN CORPUSCULAR HEMOGLOBIN 30.9 pg (28-32); MEAN CORPUSCULAR HGB CONC 30.2 g/dL (31-35); MEAN CORPUSCULAR VOLUME 102.3 fL (81-99); MONOCYTES # (AUTO) 0.8 (0.2-0.8); MONOCYTES % 3.4 % (4.4-11.3); NEUTROPHILS # (AUTO) 20.2 (2.1-6.9); NEUTROPHILS % 90.4 % (38.7-80.0); PLATELET COUNT 495 x10e3/uL (140-360); RED BLOOD COUNT 3.46 x10e6/uL (4.3-5.7); RED CELL DISTRIBUTION WIDTH 13.1 % (11.7-14.4)
[2019-08-07] MEDS ORDERED: ALBUMIN 25% 12.5GM 0.25 GM/ML BTL IV ONE (01:45)
[2019-08-07] MEDS ORDERED: FUROSEMIDE INJ 10 MG/ML 4 ML VIAL IV ONE (01:45)
[2019-08-07 01:55] LABS: INR 1.1; PROTHROMBIN TIME 14.9 seconds (11.9-14.5)
[2019-08-07 01:56] LABS: PARTIAL THROMBOPLASTIN TIME 56.5 seconds (23.8-35.5)
[2019-08-07 02:04] LABS: ALANINE AMINOTRANSFERASE 15 IU/L (0-55); ALBUMIN 1.4 g/dL (3.5-5.0); ALBUMIN/GLOBULIN RATIO 0.3 (0.8-2.0); ALKALINE PHOSPHATASE 98 IU/L (40-150); ANION GAP 19.8 mmol/L (8-16); BLOOD UREA NITROGEN 16 mg/dL (7-26); BUN/CREATININE RATIO 16 (6-25); CALCIUM 8.8 mg/dL (8.4-10.2); CARBON DIOXIDE 27 mmol/L (22-29); CHLORIDE 100 mmol/L (98-107); CREATINE KINASE 66 IU/L (30-200); CREATININE, SERUM 0.98 mg/dL (0.72-1.25); EST GLOMERULAR FILTRATION RATE > 60 ML/MIN (60-); GLUCOSE 208 mg/dL (74-118); MAGNESIUM 1.9 MG/DL (1.3-2.1); POTASSIUM 4.8 mmol/L (3.5-5.1); SODIUM 142 mmol/L (136-145)
[2019-08-07 02:18] LABS: COLOR,URINE YELLOW (YELLOW); LEUKOCYTE ESTERASE ,URINE NEGATIVE (NEGATIVE); NITRITE,URINE NEGATIVE (NEGATIVE); PROTEIN,URINE DIPSTICK 1+ (NEGATIVE)
[2019-08-07 02:19] LABS: BILIRUBIN,URINE 1+ (NEGATIVE); CLARITY,URINE CLOUDY (CLEAR); KETONES,URINE 2+ (NEGATIVE); URINE UROBILINOGEN 0.2 mg/dL (0.2 - 1)
[2019-08-07 02:30] LABS: BACTERIA,URINE MANY /HPF; EPITHELIAL CELLS,URINE FEW /LPF; RBC,URINE >50 /HPF (0-5)
--- NOTE | 2019-08-07 02:43 | Diagnostic Imaging Report ---
ADDENDUM #1 VOICE RECOGNITION ERROR: Endotracheal tube terminates 5 to 6 cm above the georgi. Signed by: Dr. Daysi Mayo MD on 08/07/2019 4:36 AM ORIGINAL REPORT EXAMINATION: CHEST X-RAY LINE PLACEMENT COMPARISON: Chest x-ray 08/05/2019, chest x-ray 08/06/2019 INDICATION: ^Post PICC Line Insertion ^[id number] ^0210 ^Y DISCUSSION: Frontal view of the chest obtained at 0226 hours. HEART AND MEDIASTINUM: The heart is normal in size LINES: Endotracheal tube terminates 5 to 6 cm above the clavicle. Enteric tube extends past the diaphragm. Left PICC line terminates in the SVC. No pneumothorax. LUNGS: Improved aeration of the lungs. Bilateral pulmonary infiltrates are stable, right lung more severe than the left. PLEURA: No large effusions. No pneumothorax. BONES AND SOFT TISSUES: Stable. IMPRESSION: Left PICC line terminates in the SVC without pneumothorax. Other support devices as described above. Stable pulmonary infiltrates. Signed by: Dr. Daysi Mayo MD on 08/07/2019 2:40 AM
[2019-08-07] MEDS: ROCURONIUM BROMIDE 250 MG in SODIUM CHLORIDE 0.9% 250ML 225 ML IV PRN ×2 (03:00→22:34)
[2019-08-07] MEDS: MEROPENEM 1GM 100 ML IV SCH (03:00)
[2019-08-07] MEDS: MIDAZOLAM HCL 25 MG in SODIUM CHLORIDE 0.9% 50ML 45 ML IV PRN ×3 (03:00→22:36)
--- NOTE | 2019-08-07 03:09 | Diagnostic Imaging Report ---
Abdomen/KUB INDICATION: ^Constipation ^Y COMPARISON: Chest x-ray 0226 hours. FINDINGS: Portable, supine image obtained at 0243 hours. The image is motion degraded. Medical Devices: Enteric tube terminates in the proximal stomach. Abreu catheter with temperature sensor in the midline pelvis. Bowel: Unremarkable bowel gas pattern. No dilated bowel loops. No significant stool burden. Free air: None Abdominal calcifications: None Organomegaly: None Lung bases: Patchy bilateral pulmonary infiltrates. Bones: Unremarkable IMPRESSION: No significant stool burden. Unremarkable bowel gas pattern. Medical devices as described above. Signed by: Dr. Daysi Mayo MD on 08/07/2019 3:05 AM
[2019-08-07 03:46] LABS: BILIRUBIN,DIRECT 0.2 mg/dL (0.0-0.5); CHOL/HDL RATIO 11.2 (3.9-4.7); CHOLESTEROL 146 MD/DL (0-199); HDL CHOLESTEROL 13 MG/DL (40-60); LDL CHOLESTEROL 68 MG/DL (60-130); TRIGLYCERIDES 324 MG/DL (0-149)
[2019-08-07] MEDS: INSULIN REGULAR, HUMAN 3ML VL 100 UNIT in SODIUM CHLORIDE 0.9% 100 ML IV SCH ×2 (05:36)
[2019-08-07] MEDS: FENTANYL CITRATE INJ 2,000 MCG in SODIUM CHLORIDE 0.9% 250ML 210 ML IV PRN ×2 (06:15→22:34)
[2019-08-07 06:18] LABS: BASOPHILS # (AUTO) 0.1 (0.0-0.1); BASOPHILS % 0.4 % (0.0-1.0); EOSINOPHILS % 0.1 % (0.0-6.0); HEMATOCRIT 28.3 % (38.2-49.6); HEMOGLOBIN 8.3 g/dL (14.0-18.0); LYMPHOCYTES # (AUTO) 0.7 (1.0-3.2); LYMPHOCYTES % 5.4 % (18.0-39.1); MEAN CORPUSCULAR HEMOGLOBIN 30.2 pg (28-32); MEAN CORPUSCULAR HGB CONC 29.3 g/dL (31-35); MEAN CORPUSCULAR VOLUME 102.9 fL (81-99); MONOCYTES # (AUTO) 0.7 (0.2-0.8); MONOCYTES % 5.4 % (4.4-11.3); NEUTROPHILS # (AUTO) 11.6 (2.1-6.9); NEUTROPHILS % 87.1 % (38.7-80.0); PLATELET COUNT 291 x10e3/uL (140-360); RED BLOOD COUNT 2.75 x10e6/uL (4.3-5.7); RED CELL DISTRIBUTION WIDTH 13.1 % (11.7-14.4)
[2019-08-07 06:37] LABS: ALANINE AMINOTRANSFERASE 12 IU/L (0-55); ALBUMIN 2.1 g/dL (3.5-5.0); ALBUMIN/GLOBULIN RATIO 0.5 (0.8-2.0); ALKALINE PHOSPHATASE 69 IU/L (40-150); ANION GAP 18.7 mmol/L (8-16); BLOOD UREA NITROGEN 19 mg/dL (7-26); BUN/CREATININE RATIO 16 (6-25); CALCIUM 8.3 mg/dL (8.4-10.2); CARBON DIOXIDE 28 mmol/L (22-29); CHLORIDE 101 mmol/L (98-107); CREATININE, SERUM 1.19 mg/dL (0.72-1.25); EST GLOMERULAR FILTRATION RATE > 60 ML/MIN (60-); GLUCOSE 212 mg/dL (74-118); POTASSIUM 4.7 mmol/L (3.5-5.1); SODIUM 143 mmol/L (136-145)
[2019-08-07 07:11] LABS: CREATINE KINASE MB 0.9 ng/mL (0-5.0)
[2019-08-07] MEDS ORDERED: ALBUMIN 25% 25GM 100ML 0.25 GM/ML BTL IV SCH (07:45)
[2019-08-07] MEDS ORDERED: ACETAZOLAMIDE SODIUM 500 MG/VIAL IV SCH (07:45)
[2019-08-07] MEDS: CLOPIDOGREL BISULFATE 75 MG TAB PO SCH (09:04)
[2019-08-07] MEDS: EYE LUBRICANT OPTH OINT 3.5GM TUBE OP SCH ×3 (09:04→22:32)
[2019-08-07] MEDS: METOPROLOL TARTRATE 25 MG TAB PO SCH (09:04)
[2019-08-07] MEDS: ASPIRIN 81 MG CHEW TAB PO SCH (09:04)
[2019-08-07] MEDS: BALSAM PERU/CASTOR OIL 60 GM OINT...G. TP SCH (09:05)
--- NOTE | 2019-08-07 12:42 | Progress Note ---
DATE: SUBJECTIVE: Yesterday afternoon, the patient desaturated into the 70s and a rapid response was called. The PEEP was increased, but his saturations remained in the 80s. He was placed back in the prone position and his saturations improved. A new PICC line was placed. The patient received albumin and diuretics yesterday with some urine output. He is continuing to receive enteral feedings. He remains on paralytic along with Versed at 7 mg an hour and fentanyl 200 an hour. PHYSICAL EXAMINATION: VITAL SIGNS: The patient is afebrile. The blood pressure is 107/71 with a heart rate of 85. Respiratory rate is 26. The mechanical ventilator is set at a rate of 26 with a FiO2 of 75% and a PEEP of 16. The tidal volume is set at 350. HEENT: Shows no facial swelling or erythema. CARDIAC: Reveals regular rate and rhythm with normal S1 and S2. LUNGS: Auscultation of lungs reveals rhonchorous breath sounds bilaterally. There is no wheezing. ABDOMEN: Soft and nontender. There is no rebound or guarding. EXTREMITIES: Shows no leg edema or calf tenderness. There is no cyanosis or clubbing. SKIN: Shows no rashes. NEUROLOGICAL: Shows no focal abnormalities. The patient is sedated and paralyzed. LABORATORY DATA: Repeat coronavirus serology is negative. The BUN to creatinine ratio is 19 to 1.19. Other electrolytes are within normal limits. The blood sugar is 212. Albumin is 2.1. The white blood cell count is 13.4 and the hemoglobin is 8.3. Platelet count is 291. RADIOGRAPHIC DATA: Chest x-ray shows some decrease in the dense bilateral infiltrates. IMPRESSION: 1. Acute respiratory failure. 2. Acute respiratory distress syndrome. 3. Bilateral pneumonia secondary to COVID-19. 4. Thrombocytopenia. 5. Diabetes out of control. PLAN: 1. Continue low tidal volumes and high PEEP. 2. Continue to wean FiO2 as tolerated. 3. Continue enteral feedings. 4. Continue insulin drip. 5. Continue skin care. 6. Re-evaluation for tracheostomy. 7. Case discussed with Dr. Aguirre of Internal Medicine, Infectious Disease, cook night nursing, day shift nursing, Respiratory and administration. Greater than 35 minutes in direct critical care time. Joseph Ch MD [facility]/JAGDISH /[id number]
[2019-08-07] MEDS ORDERED: INSULIN REGULAR, HUMAN 3ML VL 300 UNIT in SODIUM CHLORIDE 0.45% 100 ML 300 ML IV SCH ×2 (13:03)
[2019-08-07] MEDS ORDERED: DEXTROSE 50% SYRINGE 50 ML IV PRN (13:15)
[2019-08-07] MEDS ORDERED: HEPARIN SOD/SOD CHLORIDE 1,000 ML ONE (14:27)
[2019-08-07] MEDS ORDERED: SODIUM CHLORIDE 0.9% 1000ML 1,000 ML ONE (15:25)
[2019-08-07] MEDS: ENOXAPARIN SOD INJ 40 MG/0.4 ML SYR SC SCH (17:33)
[2019-08-07] MEDS ORDERED: METOPROLOL TARTRATE INJ 1 MG/ML VIAL IV ONE (18:15)
--- NOTE | 2019-08-07 18:36 | Diagnostic Imaging Report ---
SHOULDER 1 VIEW -one view HISTORY: Possible Dislocation COMPARISON: None available. FINDINGS: Bones: No acute displaced fracture. Osseous alignment is within normal limits. Joints: The joint spaces are well-maintained. Soft tissues: The soft tissues appear unremarkable. IMPRESSION: No evidence of dislocation although complete views was not performed. Recommend obtaining complete views of the shoulder. Signed by: Bhupendra Costa MD on 08/07/2019 6:32 PM
[2019-08-07] MEDS: INSULIN GLARGINE 100 UNITS/ML VIAL SQ SCH (21:00)
[2019-08-07 22:18] LABS: ABG PH 7.21 (7.31-7.41)
[2019-08-07 22:19] LABS: ABG PCO2 88 mmHg (35-45)
[2019-08-07 22:20] LABS: ABG HCO3 35 mmol/L (23-28)
[2019-08-07] MEDS ORDERED: LORAZEPAM INJ 2 MG/ML VIAL ONE (23:24)
[2019-08-07] MEDS ORDERED: LORAZEPAM INJ 2 MG/ML VIAL IV ONE (23:45)
[2019-08-08] VITALS (24 sets, daily range): BP systolic 115–183; BP diastolic 55–117
[2019-08-08] MEDS: ROCURONIUM BROMIDE 250 MG in SODIUM CHLORIDE 0.9% 250ML 225 ML IV PRN ×5 (03:11→23:30)
[2019-08-08] MEDS: MIDAZOLAM HCL 25 MG in SODIUM CHLORIDE 0.9% 50ML 45 ML IV PRN ×5 (03:11→21:30)
[2019-08-08 05:15] LABS: BASOPHILS # (AUTO) 0.1 (0.0-0.1); BASOPHILS % 0.6 % (0.0-1.0); EOSINOPHILS # (AUTO) 0.1 (0.0-0.4); EOSINOPHILS % 0.7 % (0.0-6.0); HEMATOCRIT 33.7 % (38.2-49.6); HEMOGLOBIN 10.1 g/dL (14.0-18.0); LYMPHOCYTES # (AUTO) 0.7 (1.0-3.2); LYMPHOCYTES % 4.7 % (18.0-39.1); MEAN CORPUSCULAR HEMOGLOBIN 30.6 pg (28-32); MEAN CORPUSCULAR VOLUME 102.1 fL (81-99); MONOCYTES # (AUTO) 0.7 (0.2-0.8); MONOCYTES % 4.7 % (4.4-11.3); NEUTROPHILS # (AUTO) 12.2 (2.1-6.9); NEUTROPHILS % 87.4 % (38.7-80.0); PLATELET COUNT 357 x10e3/uL (140-360); RED CELL DISTRIBUTION WIDTH 13.2 % (11.7-14.4)
[2019-08-08 05:42] LABS: ALANINE AMINOTRANSFERASE 11 IU/L (0-55); ALBUMIN 2.4 g/dL (3.5-5.0); ALBUMIN/GLOBULIN RATIO 0.6 (0.8-2.0); ALKALINE PHOSPHATASE 85 IU/L (40-150); ANION GAP 13.2 mmol/L (8-16); BLOOD UREA NITROGEN 16 mg/dL (7-26); BUN/CREATININE RATIO 20 (6-25); CALCIUM 8.6 mg/dL (8.4-10.2); CARBON DIOXIDE 32 mmol/L (22-29); CHLORIDE 103 mmol/L (98-107); EST GLOMERULAR FILTRATION RATE > 60 ML/MIN (60-); GLUCOSE 148 mg/dL (74-118); POTASSIUM 4.2 mmol/L (3.5-5.1); SODIUM 144 mmol/L (136-145)
[2019-08-08] MEDS: CLOPIDOGREL BISULFATE 75 MG TAB PO SCH (07:56)
[2019-08-08] MEDS: ASPIRIN 81 MG CHEW TAB PO SCH (07:56)
[2019-08-08] MEDS: FENTANYL CITRATE INJ 2,000 MCG in SODIUM CHLORIDE 0.9% 250ML 210 ML IV PRN ×3 (08:05→23:24)
[2019-08-08] MEDS: EYE LUBRICANT OPTH OINT 3.5GM TUBE OP SCH ×3 (08:06→21:30)
[2019-08-08] MEDS: BALSAM PERU/CASTOR OIL 60 GM OINT...G. TP SCH (08:06)
[2019-08-08] MEDS ORDERED: PROPOFOL IV EMULSION 10MG/ML 100 ML ONE (08:30)
[2019-08-08] MEDS ORDERED: ALBUMIN 25% 25GM 100ML 0.25 GM/ML BTL IV ONE (08:30)
[2019-08-08] MEDS ORDERED: PROPOFOL IV EMULSION 10MG/ML 100 ML IV SCH (08:45)
[2019-08-08] MEDS ORDERED: FUROSEMIDE INJ 10 MG/ML 4 ML VIAL IV ONE (09:10)
[2019-08-08] MEDS ORDERED: ALBUMIN 25% 25GM 100ML 200 ML IV ONE (09:10)
--- NOTE | 2019-08-08 14:07 | Progress Note ---
DATE: SUBJECTIVE: The patient is in a prone position. He is now saturating 97% on 75% and 18 of PEEP. He is not having fevers. He is scheduled for tracheostomy today. His tube feedings are on hold. PHYSICAL EXAMINATION: VITAL SIGNS: The patient is afebrile. The blood pressure is 139/71 and saturation is 97%. HEENT: Shows no facial swelling or erythema. The oropharynx is normal. There is an endotracheal tube in place. CARDIAC: Reveals a regular rate and rhythm with normal S1 and S2. There are no murmurs or rubs. RESPIRATORY: Auscultation of lungs reveal rhonchorous breath sounds bilaterally. There is no wheezing. ABDOMEN: Soft and nontender. There is no rebound or guarding. EXTREMITIES: Show no leg edema or calf tenderness. There is no cyanosis or clubbing. SKIN: Shows no rashes. NEUROLOGICAL: Shows no focal abnormalities. The patient is sedated and paralyzed. LABORATORY DATA: White blood cell count is 14, hemoglobin is 10.1, and the platelet count 357. Blood gases; 7.21, 88, 35. Electrolytes are within normal limits. BUN to creatinine ratio is normal. RADIOGRAPHIC DATA: Shoulder x-ray was within normal limits. IMPRESSION: 1. Acute respiratory failure. 2. Acute respiratory distress syndrome. 3. COVID-19. 4. Diabetes out of control. PLAN: 1. Continue low tidal volume and high PEEP. Monitor plateau pressure to try and keep the plateau pressure below 30. 2. Continue to wean FiO2 as tolerated. 3. Continue enteral feedings. 4. Continue insulin drip. 5. Probable tracheostomy today. Case discussed with Dr. Borges of Infectious Disease, Dr. Aguirre of Internal Medicine, assembler 1st shift nursing, day shift nursing, Respiratory, and administration. Greater than 35 minutes in direct critical care time. Joseph Ch MD [facility]L /[id number]
[2019-08-08] MEDS ORDERED: LIDOCAINE 1% W/EPINEPHRINE 20 ML VIAL ONE (14:12)
[2019-08-08] MEDS ORDERED: BUPIVACAINE HCL 0.5% INJ 30 ML VIAL INJ ONE (14:12)
[2019-08-08] MEDS ORDERED: VECURONIUM BROMIDE FOR INJ 20 MG VIAL ONE (14:59)
--- NOTE | 2019-08-08 15:15 | Diagnostic Imaging Report ---
EXAMINATION: CHEST SINGLE (PORTABLE) INDICATION: Endotracheal tube placement, enteric tube placement COMPARISON: Chest radiograph of 08/07/2019 FINDINGS: LINES/TUBES:Endotracheal tube terminates 4.5 cm above the georgi. Left PICC line terminates in the SVC. Enteric tube with tip and side-port in the stomach. EKG leads overlie the chest. LUNGS:Unchanged bilateral lower lung predominant hazy airspace opacities. PLEURA:No pleural effusion or pneumothorax. MEDIASTINUM:The cardiomediastinal silhouette appears unchanged in size and shape. BONES/SOFT TISSUES:No acute osseous injury. ABDOMEN:No free air under the diaphragm. IMPRESSION: Lines and tubes as above. Otherwise, no significant interval change. Signed by: Frantz Singer MD on 08/08/2019 3:11 PM
--- NOTE | 2019-08-08 16:03 | Progress Note ---
DATE: SUBJECTIVE: Mr. Gonsalez, this is day #16 of being in the hospital on ventilator. His repeat COVID-19 PCR was negative, which is deep suctioning. Discussed with all the doctors. The patient is in need for tracheostomy because of the prolonged weaning and vent and concern about muscle atrophy. The patient has been on the vent for 2 weeks. LABORATORY DATA: Reviewed. His white count is 13.9 and hemoglobin of 10. He has sodium of 144, potassium 4.2, and creatinine 0.8. PHYSICAL EXAMINATION: GENERAL: Intubated and sedated. HEENT: Not icteric. CHEST: Few crackles are present. IMPRESSION: 1. Respiratory failure secondary to pneumonia with COVID-19. 2. Acute respiratory distress syndrome secondary to COVID-19. 3. Thrombocytopenia. 4. Diabetes mellitus with diabetic ketoacidosis on presentation. PLAN: To proceed with tracheostomy today. His PCR is negative, which is reassuring. The patient is going to need a prolonged course of ventilatory weaning. He is certainly at risk for recurrent aspiration, etc. Discussed with all the physicians on the case. MD SHANNAN Jaramillo/MODL /[id number]
[2019-08-08] MEDS ORDERED: SEVOFLURANE INHAL SOLN 250 ML PEN BTL ONE (16:24)
--- NOTE | 2019-08-08 19:18 | Operative Report ---
DATE OF PROCEDURE: SURGEON: Joseph Ch MD PROCEDURE: Endotracheal intubation with tube exchange over a bougie. PREOPERATIVE DIAGNOSIS: Respiratory failure and COVID-19. POSTOPERATIVE DIAGNOSIS: Respiratory failure and COVID-19. SEDATION: The patient was on Versed, fentanyl, paralytics at the time of the procedure. PROCEDURE IN DETAIL: The patient had an 8.0 endotracheal with a ruptured balloon. The patient was preoxygenated with 100% oxygen. Bougie was passed through the endotracheal tube. The old tube was removed and a new tube was placed over the bougie by a Seldinger technique. There was good CO2 return. The patient was able to be ventilated with an Ambu bag and his saturating increased back to 95%. COMPLICATIONS: None. ESTIMATED BLOOD LOSS: None. Joseph Ch MD [facility]/MODL /[id number]
--- NOTE | 2019-08-08 19:48 | Operative Report ---
DATE OF PROCEDURE: 08/08/2019 SURGEON: Primo Chaparro MD PREOPERATIVE DIAGNOSES: Acute respiratory distress syndrome, respiratory failure. POSTOPERATIVE DIAGNOSES: Acute respiratory distress syndrome, respiratory failure. OPERATIVE PROCEDURE: Tracheostomy. ADMINISTRATIVE OFFICE MANAGER: ANESTHESIA: General, DrIndigo . INDICATION: The patient is a 48-year-old male with COVID-19 pulmonary infection, who is on the ventilator for 2 weeks. Repeat serology is negative for active virus antigen. At this point, the team has been assembled to perform tracheostomy to enhance his chance of recovery and prevent complication or prolong endotracheal intubation. DESCRIPTION OF PROCEDURE: The patient was brought to the OR from ICU with protective gears and appropriate step to prevent possible viral shedding. The room has been prepared for the planned operation, and all involve staff members gowned and Shield appropriately. The patient's shoulder was lifted with a roll of seat and neck was extended and prepped with alcohol and draped in sterile fashion. The projected transverse neck incision was then anesthestized with 0.25 strength Marcaine with epinephrine into the skin, subcutaneous tissue. A transverse 4 cm incision was made one fingerbreadth above the suprasternal notch extending through skin and subcutaneous tissue, platysma. The trachea is palpated in the midline and the strap muscles in a vertical fashion with cautery using traction. The use of both of the thyroid gland was divided with cautery. Hemostasis was achieved. The anterior and lateral aspect of the trachea were exposed with sharp dissection. We selected the intratracheal ring between the 3rd and 4th ring as the most accessible entry site for the tracheotomy, which was then created with a knife to the lateral border of the trachea bilaterally. The 4th ring was then cut toward the lateral aspect of both side. Hemostasis was achieved. A tracheal testing director was inserted and a [place] tracheostomy tube was inserted as the anesthesiologist removed the ET tube. The patient did not cough during this exchange; therefore, no evidence of occurred during this moment. The balloon was inflated and the tracheostomy tube is anchored to the skin with 2-0 Prolene stitches. Dressing applied. The patient tolerated the procedure well. Blood loss was approximately 5 mL. He was then transported with appropriate precaution back to ICU. Primo MD [facility]/JAGDISH /[id number]
[2019-08-08] MEDS: INSULIN GLARGINE 100 UNITS/ML VIAL SQ SCH (21:00)
[2019-08-08] MEDS: PROPOFOL IV EMULSION 10MG/ML 100 ML IV PRN (23:22)
[2019-08-09] VITALS (25 sets, daily range): BP systolic 125–181; BP diastolic 55–77
[2019-08-09] MEDS: MIDAZOLAM HCL 25 MG in SODIUM CHLORIDE 0.9% 50ML 45 ML IV PRN ×6 (01:36→22:55)
[2019-08-09] MEDS: PROPOFOL IV EMULSION 10MG/ML 100 ML IV PRN ×6 (03:51→20:10)
[2019-08-09] MEDS: ROCURONIUM BROMIDE 250 MG in SODIUM CHLORIDE 0.9% 250ML 225 ML IV PRN ×5 (04:32→22:35)
[2019-08-09 05:06] LABS: BASOPHILS # (AUTO) 0.1 (0.0-0.1); BASOPHILS % 0.7 % (0.0-1.0); EOSINOPHILS # (AUTO) 0.2 (0.0-0.4); EOSINOPHILS % 2.8 % (0.0-6.0); HEMATOCRIT 28.6 % (38.2-49.6); HEMOGLOBIN 8.6 g/dL (14.0-18.0); LYMPHOCYTES # (AUTO) 0.8 (1.0-3.2); LYMPHOCYTES % 11.8 % (18.0-39.1); MEAN CORPUSCULAR HEMOGLOBIN 30.3 pg (28-32); MEAN CORPUSCULAR HGB CONC 30.1 g/dL (31-35); MEAN CORPUSCULAR VOLUME 100.7 fL (81-99); MONOCYTES # (AUTO) 0.7 (0.2-0.8); MONOCYTES % 10.1 % (4.4-11.3); NEUTROPHILS # (AUTO) 5.3 (2.1-6.9); NEUTROPHILS % 73.8 % (38.7-80.0); PLATELET COUNT 244 x10e3/uL (140-360); RED BLOOD COUNT 2.84 x10e6/uL (4.3-5.7); RED CELL DISTRIBUTION WIDTH 12.7 % (11.7-14.4)
[2019-08-09 05:38] LABS: ALANINE AMINOTRANSFERASE 10 IU/L (0-55); ALBUMIN 2.5 g/dL (3.5-5.0); ALBUMIN/GLOBULIN RATIO 0.8 (0.8-2.0); ALKALINE PHOSPHATASE 61 IU/L (40-150); ANION GAP 11.2 mmol/L (8-16); BLOOD UREA NITROGEN 15 mg/dL (7-26); BUN/CREATININE RATIO 20 (6-25); CALCIUM 8.1 mg/dL (8.4-10.2); CARBON DIOXIDE 35 mmol/L (22-29); CHLORIDE 103 mmol/L (98-107); CREATININE, SERUM 0.74 mg/dL (0.72-1.25); EST GLOMERULAR FILTRATION RATE > 60 ML/MIN (60-); GLUCOSE 111 mg/dL (74-118); POTASSIUM 3.2 mmol/L (3.5-5.1); SODIUM 146 mmol/L (136-145)
[2019-08-09] MEDS: FENTANYL CITRATE INJ 2,000 MCG in SODIUM CHLORIDE 0.9% 250ML 210 ML IV PRN ×3 (07:19→21:50)
[2019-08-09] MEDS: POTASSIUM CHLORIDE 20MEQ/100ML 100 ML IV PRN (07:44)
[2019-08-09] MEDS: BALSAM PERU/CASTOR OIL 60 GM OINT...G. TP SCH (08:38)
[2019-08-09] MEDS: CLOPIDOGREL BISULFATE 75 MG TAB PO SCH (08:38)
[2019-08-09] MEDS: EYE LUBRICANT OPTH OINT 3.5GM TUBE OP SCH ×3 (08:38→20:30)
[2019-08-09] MEDS: ASPIRIN 81 MG CHEW TAB PO SCH (08:38)
--- NOTE | 2019-08-09 10:03 | Diagnostic Imaging Report ---
EXAMINATION: CHEST SINGLE (PORTABLE) INDICATION: Endotracheal tube placement, enteric tube placement COMPARISON: Chest radiograph of FINDINGS: LINES/TUBES:Endotracheal tube has been removed and there is a new tracheostomy tube in place. Enteric tube with tip and side-port in the stomach. EKG leads overlie the chest. LUNGS:Unchanged bilateral lower lung predominant hazy airspace opacities. PLEURA:New obscuration of the left costophrenic angle likely due to effusion. MEDIASTINUM:The cardiomediastinal silhouette appears unchanged in size and shape. BONES/SOFT TISSUES:No acute osseous injury. ABDOMEN:No free air under the diaphragm. IMPRESSION: Unchanged bilateral lower lung predominant hazy airspace opacities which could be due to pneumonia. New obscuration of the left costophrenic angle likely due to effusion. Signed by: Bhupendra Costa MD on 08/09/2019 10:00 AM
[2019-08-09] MEDS ORDERED: POTASSIUM CHLORIDE 20 MEQ TAB CR PO STA (11:50)
--- NOTE | 2019-08-09 12:15 | Progress Note ---
DATE: SUBJECTIVE: The patient has remained on 80% FiO2 overnight with PEEP of 16. The patient continues on rocuronium along with Versed and fentanyl. The patient had tracheostomy yesterday and the airway pressures have improved. PHYSICAL EXAMINATION: VITAL SIGNS: The blood pressure is 158/72 and saturation is 92%. He is afebrile. HEENT: Shows some swelling around the lips and tongue. LYMPHATIC: Shows no submandibular, cervical, or supraclavicular adenopathy. CARDIAC: Reveals a regular rate and rhythm with normal S1 and S2. LUNGS: Auscultation of lungs reveals crackles in both bases. There is no wheezing. ABDOMEN: Soft and nontender. There is no rebound or guarding. EXTREMITIES: Shows no leg edema or calf tenderness. LABORATORY DATA: White blood cell count is 7.1 with a hemoglobin of 8.6 and a platelet count of 244. BUN to creatinine ratio is normal. Potassium is 3.2 and the sodium is 146. Chest x-ray shows continued bilateral infiltrates greatest in the lower lobes. There is also a possible left pleural effusion. IMPRESSION: 1. Acute respiratory failure. 2. Acute respiratory distress syndrome. 3. COVID-19. 4. Diabetes. PLAN: 1. Continue to wean oxygen as tolerated. Continue high PEEP and low tidal volume. 2. Continue enteral feedings. 3. Continue insulin drip. 4. Tracheostomy care. 5. Passive range of motion exercises in extremities. 6. Skin care. 7. DVT prophylaxis. 8. Case discussed with General Surgery, Anesthesia, Infectious Disease, night warehouse manager nursing, day shift nursing, and Respiratory. Greater than 35 minutes in direct critical care time. Joseph Ch MD [facility]ICEL /[id number]
--- NOTE | 2019-08-09 15:27 | Diagnostic Imaging Report ---
Normal ultrasound images were obtained as patient became unstable. Signed by: Bhupendra Costa MD on 08/09/2019 3:23 PM
--- NOTE | 2019-08-09 15:36 | Progress Note ---
DATE: Internal Medicine Progress Note SUBJECTIVE: The patient is on the ventilator. Not doing well at all. PHYSICAL EXAMINATION: HEART: Showed regular rhythm. Normal S1, S2 sound. LUNGS: Show decreased breath sounds bilaterally. ABDOMEN: Soft. VITAL SIGNS: Blood pressure 136/59, temperature 97.3, heart rate 101 per minute, respiratory rate 26 per minute, and O2 saturation 91%. LABORATORY DATA: BMP; sodium 146, potassium 3.2, chloride 103, CO2 of 35, BUN 15, creatinine 0.74, glucose 111, calcium 8.1. AST 17, ALT 10, alkaline phosphatase 61. Toxicology, vancomycin 1.1. Coagulation showed PT 14.9, INR 1.10, PTT 56.5. All the rhinovirus, pertussis, Chlamydia pneumoniae, Human metapneumovirus, PCR, influenza A and B, parainfluenza 1, 2, 3, 4, RSV and rhinovirus all of them negative. Coronavirus test has come back positive for COVID-19, two tests were positive and one test was negative. On the chest x-ray, we still have some bilateral infiltrates, which is unchanged and bilateral lower lung paramedian hazy airspace opacity which could be due to pneumonia. New collection on left costophrenic angle, likely due to effusion. IMPRESSION: 1. Acute respiratory failure secondary to bilateral viral pneumonia. 2. Bilateral pneumonia. 3. COVID-19 infection. 4. Acute anemia. 5. Hyponatremia. 6. Hypokalemia. PLAN OF TREATMENT: Continue with fentanyl drip, midostaurin drip, potassium had been replaced already, propofol drip for sedation, Zemuron drip for sedation drip for sedation also. Tylenol 650 mg q.6 hours as needed for pain or fever. Diamox 250 mg IV one time, Artificial Tears one application three times a day, aspirin 81 mg daily, Balsam [place]/castor oil one application daily, Plavix 75 mg daily, D50 IV push as needed for hypoglycemia. Lovenox 40 mg subcutaneous today. Continue Lantus 10 units at bedtime and continue monitoring blood sugar before meals and at bedtime. Very poor prognosis. Continue current medication regimen. TIME SPENT: Around 45 minutes. Rodney Del Rio MD [facility] /[id number]
--- NOTE | 2019-08-09 17:41 | Progress Note ---
DATE: SUBJECTIVE: Mr. Gonsalez remains in intensive care unit, remains on the ventilator. He is status post trach. No fever. His repeat COVID-19 was negative at 15 days apparently and the patient also was sick for a week before he came to us. I am going to check another COVID-19 from the trach PCR. Anticipating he may need further surgical procedure such as ultrasound-guided aspiration of pleural fluid. The patient is currently intubated and sedated, and is currently on status post trach. Continue his antibiotic stable. Discussed with the medical team to continue with aspiration precaution. MD SHANNAN Jaramillo/JAGDISH /[id number]
[2019-08-09] MEDS ORDERED: ALBUMIN 25% 25GM 100ML 0.25 GM/ML BTL IV NR (18:45)
[2019-08-09] MEDS ORDERED: ACETAZOLAMIDE SODIUM 500 MG/VIAL IV ONE (19:45)
[2019-08-09] MEDS: INSULIN GLARGINE 100 UNITS/ML VIAL SQ SCH (20:30)
[2019-08-09] MEDS: ACETAMINOPHEN 325 MG TAB PO PRN (22:10)
[2019-08-09] MEDS ORDERED: ACETAZOLAMIDE SODIUM 500 MG/VIAL ONE (23:28)
[2019-08-10] VITALS (24 sets, daily range): BP systolic 83–173; BP diastolic 49–85
--- NOTE | 2019-08-10 01:33 | Diagnostic Imaging Report ---
Abdomen/KUB INDICATION: ^ABD DISTENTION, HIGH TUBE FEED RESIDUALS ^Y COMPARISON: Abdomen x-ray 08/07/2019. FINDINGS: Portable, supine image obtained at 2341 hours. Medical Devices: Enteric tube terminates in the proximal stomach. Temperature probe in the lower pelvis. Bowel: Unremarkable bowel gas pattern. No dilated bowel loops. No pneumatosis. Free air: None Abdominal calcifications: None Organomegaly: None Bones: Unremarkable IMPRESSION: Enteric tube terminates in the proximal stomach. Unremarkable bowel gas pattern. Signed by: Dr. Daysi Mayo MD on 08/10/2019 12:12 AM
--- NOTE | 2019-08-10 01:33 | Diagnostic Imaging Report ---
EXAMINATION: CHEST SINGLE (PORTABLE) COMPARISON: Chest x-ray 0812 hours INDICATION: Pneumonia, sepsis, ARDS ^ARDs ^Y DISCUSSION: Frontal view of the chest obtained at 2337 hours. HEART AND MEDIASTINUM: The heart is normal in size LINES: Tracheostomy is midline. Left PICC line terminates in the SVC. Enteric tube extends past the diaphragm LUNGS/PLEURA: Multifocal infiltrates are redemonstrated without significant change. Small bilateral pleural effusions. No pneumothorax BONES AND SOFT TISSUES: Stable. IMPRESSION: No change in multifocal infiltrates and small pleural effusions. Medical devices as described above. Signed by: Dr. Daysi Mayo MD on 08/10/2019 12:08 AM
[2019-08-10] MEDS: PROPOFOL IV EMULSION 10MG/ML 100 ML IV PRN ×3 (03:30→07:45)
[2019-08-10] MEDS: ROCURONIUM BROMIDE 250 MG in SODIUM CHLORIDE 0.9% 250ML 225 ML IV PRN ×4 (03:41→21:45)
[2019-08-10] MEDS: FENTANYL CITRATE INJ 2,000 MCG in SODIUM CHLORIDE 0.9% 250ML 210 ML IV PRN ×3 (05:55→23:45)
[2019-08-10 06:14] LABS: BASOPHILS # (AUTO) 0.2 (0.0-0.1); BASOPHILS % 0.9 % (0.0-1.0); EOSINOPHILS % 0.2 % (0.0-6.0); HEMATOCRIT 34.7 % (38.2-49.6); HEMOGLOBIN 10.1 g/dL (14.0-18.0); LYMPHOCYTES # (AUTO) 1.7 (1.0-3.2); LYMPHOCYTES % 9.4 % (18.0-39.1); MEAN CORPUSCULAR HGB CONC 29.1 g/dL (31-35); MEAN CORPUSCULAR VOLUME 106.4 fL (81-99); MONOCYTES # (AUTO) 1.8 (0.2-0.8); MONOCYTES % 9.8 % (4.4-11.3); NEUTROPHILS % 77.1 % (38.7-80.0); PLATELET COUNT 459 x10e3/uL (140-360); RED BLOOD COUNT 3.26 x10e6/uL (4.3-5.7); RED CELL DISTRIBUTION WIDTH 13.3 % (11.7-14.4)
[2019-08-10] MEDS: MIDAZOLAM HCL 25 MG in SODIUM CHLORIDE 0.9% 50ML 45 ML IV PRN ×3 (06:15→21:45)
[2019-08-10 06:33] LABS: ANION GAP 11.1 mmol/L (8-16); BLOOD UREA NITROGEN 15 mg/dL (7-26); CHLORIDE 102 mmol/L (98-107); CREATININE, SERUM 0.95 mg/dL (0.72-1.25); POTASSIUM 4.1 mmol/L (3.5-5.1); SODIUM 150 mmol/L (136-145)
[2019-08-10 06:34] LABS: ALANINE AMINOTRANSFERASE 10 IU/L (0-55); ALBUMIN 2.7 g/dL (3.5-5.0); ALBUMIN/GLOBULIN RATIO 0.7 (0.8-2.0); ALKALINE PHOSPHATASE 73 IU/L (40-150); BUN/CREATININE RATIO 16 (6-25); CALCIUM 7.9 mg/dL (8.4-10.2); EST GLOMERULAR FILTRATION RATE > 60 ML/MIN (60-); GLUCOSE 211 mg/dL (74-118)
[2019-08-10 06:38] LABS: CARBON DIOXIDE 41 mmol/L (22-29)
[2019-08-10] MEDS: EYE LUBRICANT OPTH OINT 3.5GM TUBE OP SCH ×3 (09:03→21:45)
[2019-08-10] MEDS: BALSAM PERU/CASTOR OIL 60 GM OINT...G. TP SCH (09:03)
[2019-08-10] MEDS ORDERED: DEXTROSE 5%/0.225% SOD CHL 1,000 ML IV ONE (09:15)
[2019-08-10 09:59] LABS: BACTERIA,URINE FEW /HPF; BILIRUBIN,URINE SMALL (NEGATIVE); CLARITY,URINE SL CLOUDY (CLEAR); COLOR,URINE YELLOW (YELLOW); KETONES,URINE NEGATIVE (NEGATIVE); LEUKOCYTE ESTERASE ,URINE NEGATIVE (NEGATIVE); NITRITE,URINE NEGATIVE (NEGATIVE); PROTEIN,URINE DIPSTICK 1+ (NEGATIVE); URINE UROBILINOGEN 0.2 mg/dL (0.2 - 1)
[2019-08-10 10:00] LABS: EPITHELIAL CELLS,URINE FEW /LPF; MUCUS,URINE FEW (RARE)
[2019-08-10] MEDS: CLOPIDOGREL BISULFATE 75 MG TAB PO SCH (10:42)
[2019-08-10] MEDS: ASPIRIN 81 MG CHEW TAB PO SCH (10:42)
[2019-08-10] MEDS: VANCOMYCIN 1GM/NS 250 ML 250 ML IV SCH ×2 (10:43→21:50)
[2019-08-10] MEDS ORDERED: ALBUMIN 25% 25GM 100ML 0.25 GM/ML BTL IV ONE (11:00)
--- NOTE | 2019-08-10 11:48 | Progress Note ---
DATE: Pulmonary Critical Care Progress Note SUBJECTIVE: The patient had desaturations last night. He was switched to pressure control. He continued to have low saturations. He was then placed in a prone position and his saturations improved. This morning, he had low exhaled tidal volumes. He was placed back in the supine position. The inner cannula of his trach with malfunctioning had to be replaced. He was switched back to volume control and is currently on a PRVC at a rate of 22 with a tidal volume of 360 and a PEEP of 18. His FiO2 is set at 90%. His plateau pressure is 30 and his peak airway pressure is 32. He has no fevers. PHYSICAL EXAMINATION: VITAL SIGNS: The patient is afebrile. The blood pressure is now 92/53 and the pulse is 110. HEENT: Shows no facial swelling or erythema. There is a tracheostomy in good position. The catheter for suction passes well through the tracheostomy. The balloon is well inflated. CARDIAC: Reveals regular rate and rhythm with normal S1, S2. LUNGS: Auscultation of lungs reveals crackles and rhonchi bilaterally. ABDOMEN: Soft, nontender. There is a PICC line in place. EXTREMITIES: There is a radial arterial line in place. There is no leg edema. LABORATORY DATA: White blood cell count is increased to 18.2 and hemoglobin is 10.1. The platelet count is 459. The sodium is 150 and the carbon dioxide is 41. The BUN to creatinine ratio is normal. The glucose is 211. RADIOGRAPHIC DATA: Chest x-ray shows multifocal infiltrates and small bilateral pleural effusions. IMPRESSION: 1. Acute respiratory failure. 2. COVID-19 infection. 3. Acute respiratory distress syndrome. 4. Viral pneumonia. 5. Leukocytosis. 6. Hypernatremia. PLAN: 1. The patient will receive some additional free water to correct the hypernatremia. 2. Monitor white blood cell counts. The patient will need antibiotics if any secondary infection is suspected. 3. Continue insulin drip. 4. Tracheostomy care. 5. Skin care. 6. Prognosis is poor. 7. Case discussed with overnight stocker nursing, dayshift nursing, Respiratory, administration, and mother. Greater than 90 minutes in direct critical care time. Joseph Ch MD [facility]/JAGDISH Bonilla: 08/10/2019 08:59:06 /[id number]
--- NOTE | 2019-08-10 12:18 | Progress Note ---
DATE: Internal Medicine Progress Note SUBJECTIVE: The patient is still on the ventilator. PHYSICAL EXAMINATION: HEART: Showed regular rhythm. Normal S1 and S2 sound. LUNGS: Clear bilaterally. VITAL SIGNS: Temperature 96.7, heart rate is 106 per minute, respiratory rate 26 per minute, blood pressure 87/56, oxygen saturation 95%. LABORATORY DATA: On the CBC; white blood count 18.19, hemoglobin 10.1, hematocrit 34.7, and platelet count 459,000. On the BMP; sodium 150, potassium 4.1, chloride 102, carbon dioxide 41, BUN 15, creatinine 0.97, glucose 211, calcium 8.1. Total bilirubin 0.3, AST 17, ALT 10, alkaline phosphatase 73, total protein 6.5, albumin 2.7, globulin 3.8. Serology; last COVID-19 was negative. Abdominal x-ray showed enteric tube terminates in proximal stoma, unremarkable bowel gas pattern. Last chest x-ray as of yesterday show no change in multifocal infiltrates and small pleural effusions. FINAL IMPRESSION: 1. Acute respiratory failure secondary to adult respiratory distress syndrome. 2. Bilateral viral pneumonia. 3. COVID-19 positive patient. 4. Acute anemia. 5. Hyponatremia. 6. Hypokalemia. PLAN OF TREATMENT: We are going to continue course of ventilator support. He has been on fentanyl drip, potassium has been replaced, meropenem 1 g IV q.8 hours, Versed drip, also potassium has been given as needed for hypokalemia, propofol and Zemuron use for sedation. Continue vancomycin 1 g IV twice a day, Tylenol 650 mg q.6 hours as needed for pain or fever. He is also on Diamox, which has been 250 mg one time. Artificial Tears three times a day, aspirin 81 mg daily, Balsam [place]/castor oil one application topical daily, Plavix 75 mg daily. Continue Lantus 10 units at bedtime. We are going to order BMP and CBC for tomorrow. Prognosis remains guarded. MD COLT Carrero/JAGDISH /[id number]
[2019-08-10] MEDS: MEROPENEM 1GM 100 ML IV SCH ×3 (13:00→21:50)
[2019-08-10 13:50] LABS: ABG HCO3 41 mmol/L (23-28); ABG PCO2 100 mmHg (35-45); ABG PH 7.22 (7.31-7.41)
[2019-08-10] MEDS ORDERED: SODIUM CHLORIDE 0.9% 250ML 250 ML IV ONE (17:00)
--- NOTE | 2019-08-10 17:30 | Diagnostic Imaging Report ---
EXAMINATION: CHEST XRAY LINE PLACEMENT INDICATION: ^NEW RUE PICC ^[id number] ^1700 COMPARISON: 08/09/2019 FINDINGS: AP view TUBES and LINES: Stable tracheostomy tube and left PICC. New right PICC with tip projecting over inferior SVC. LUNGS: Lungs are well inflated. Diffuse bilateral airspace opacities, slightly improved in the upper lobes. PLEURA: No visible pneumothorax. Small bilateral pleural effusions, left greater than right. HEART AND MEDIASTINUM: The cardiomediastinal silhouette is unremarkable. BONES AND SOFT TISSUES: No acute osseous lesion. Soft tissues are unremarkable. UPPER ABDOMEN: No free air under the diaphragm. IMPRESSION: New right PICC in place with tip projecting over inferior SVC. No visible pneumothorax. Redemonstration of diffuse bilateral airspace opacities, slightly improved in the upper lobes. Unchanged small bilateral pleural effusions, left greater then right. Signed by: Dr. Dipesh Mccray MD on 08/10/2019 5:26 PM
--- NOTE | 2019-08-10 18:01 | Progress Note ---
DATE: HISTORY OF PRESENT ILLNESS: Mr. Jay Gonsalez dropped his blood pressure today. There was concern if he has sepsis. Discussed with Dr. Joseph Ch today and the patient did get Lasix yesterday, he was in prone position. Today, he is in supine position. His vent setting is about the same. He has no fever. REVIEW OF SYSTEMS: Could not be obtained. LABORATORY DATA: His cultures reviewed, nothing new. White count 18.18, hemoglobin of 10. Sodium 140, potassium 4.1. PHYSICAL EXAMINATION: GENERAL: He is sedated, intubated. CHEST: Few crackles, coarse. ABDOMEN: Soft. IMPRESSION: An episode of hypotension. I am not so sure it is because of diuresis or because the patient is going septic. We will start him on meropenem, vancomycin for healthcare-associated pneumonia. Leukocytosis could be also reactive versus from pneumonia, it is hard to tell at the present time. Should he spike a fever, we will get blood cultures. We will reassess in the morning. I am concerned about COVID-19. The repeat test is negative. We will continue to do one more from transbronchial aspirate and send for PCR. I am concerned about ARDS. Discussed with Intensive Care. We will follow. MD SHANNAN Jaramillo/[facility] /[id number]
[2019-08-10 18:35] LABS: BASOPHILS % 0.3 % (0.0-1.0); EOSINOPHILS % 0.1 % (0.0-6.0); HEMATOCRIT 26.8 % (38.2-49.6); HEMOGLOBIN 7.8 g/dL (14.0-18.0); LYMPHOCYTES # (AUTO) 0.6 (1.0-3.2); LYMPHOCYTES % 7.2 % (18.0-39.1); MEAN CORPUSCULAR HEMOGLOBIN 30.4 pg (28-32); MEAN CORPUSCULAR HGB CONC 29.1 g/dL (31-35); MEAN CORPUSCULAR VOLUME 104.3 fL (81-99); MONOCYTES # (AUTO) 0.8 (0.2-0.8); MONOCYTES % 10.1 % (4.4-11.3); NEUTROPHILS # (AUTO) 6.3 (2.1-6.9); NEUTROPHILS % 80.1 % (38.7-80.0); PLATELET COUNT 200 x10e3/uL (140-360); RED BLOOD COUNT 2.57 x10e6/uL (4.3-5.7); RED CELL DISTRIBUTION WIDTH 13.2 % (11.7-14.4)
[2019-08-10 18:50] LABS: ANION GAP 12.8 mmol/L (8-16); CALCIUM 7.9 mg/dL (8.4-10.2); CREATININE, SERUM 1.37 mg/dL (0.72-1.25); POTASSIUM 3.8 mmol/L (3.5-5.1)
[2019-08-10] MEDS ORDERED: SODIUM CHLORIDE 0.45% 1,000 ML IV ONE (19:15)
[2019-08-10] MEDS: INSULIN GLARGINE 100 UNITS/ML VIAL SQ SCH (21:00)
[2019-08-10 22:22] LABS: INR 1.13; PROTHROMBIN TIME 15.2 seconds (11.9-14.5)
[2019-08-10 22:23] LABS: PARTIAL THROMBOPLASTIN TIME 42.7 seconds (23.8-35.5)
[2019-08-10 22:34] LABS: ALANINE AMINOTRANSFERASE 10 IU/L (0-55); ALBUMIN 2.8 g/dL (3.5-5.0); ALBUMIN/GLOBULIN RATIO 0.9 (0.8-2.0); ALKALINE PHOSPHATASE 65 IU/L (40-150); ANION GAP 10.7 mmol/L (8-16); BILIRUBIN,DIRECT 0.2 mg/dL (0.0-0.5); BLOOD UREA NITROGEN 18 mg/dL (7-26); BUN/CREATININE RATIO 12 (6-25); CALCIUM 7.9 mg/dL (8.4-10.2); CARBON DIOXIDE 39 mmol/L (22-29); CHLORIDE 101 mmol/L (98-107); CREATINE KINASE 47 IU/L (30-200); CREATININE, SERUM 1.54 mg/dL (0.72-1.25); EST GLOMERULAR FILTRATION RATE 48 ML/MIN (60-); GLUCOSE 128 mg/dL (74-118); LIPASE < 4 U/L (8-78); MAGNESIUM 1.8 MG/DL (1.3-2.1); PHOSPHORUS 4.2 MG/DL (2.3-4.7); POTASSIUM 3.7 mmol/L (3.5-5.1); SODIUM 147 mmol/L (136-145)
[2019-08-10 22:54] LABS: FERRITIN 852.65 ng/mL (21.81-274.66)
[2019-08-10 23:59] LABS: BASOPHILS % 0.5 % (0.0-1.0); EOSINOPHILS # (AUTO) 0.1 (0.0-0.4); EOSINOPHILS % 1.1 % (0.0-6.0); LYMPHOCYTES # (AUTO) 0.7 (1.0-3.2); LYMPHOCYTES % 9.1 % (18.0-39.1); MEAN CORPUSCULAR HEMOGLOBIN 30.8 pg (28-32); MEAN CORPUSCULAR HGB CONC 29.6 g/dL (31-35); MEAN CORPUSCULAR VOLUME 103.8 fL (81-99); MONOCYTES # (AUTO) 0.8 (0.2-0.8); MONOCYTES % 11.2 % (4.4-11.3); NEUTROPHILS # (AUTO) 5.7 (2.1-6.9); NEUTROPHILS % 76.9 % (38.7-80.0); PLATELET COUNT 221 x10e3/uL (140-360); RED CELL DISTRIBUTION WIDTH 13.2 % (11.7-14.4)
[2019-08-11] VITALS (23 sets, daily range): BP systolic 115–154; BP diastolic 59–75
[2019-08-11] MEDS: PROPOFOL IV EMULSION 10MG/ML 100 ML IV PRN ×4 (00:55→23:23)
[2019-08-11] MEDS: ROCURONIUM BROMIDE 250 MG in SODIUM CHLORIDE 0.9% 250ML 225 ML IV PRN (03:40)
[2019-08-11] MEDS: MIDAZOLAM HCL 25 MG in SODIUM CHLORIDE 0.9% 50ML 45 ML IV PRN ×3 (04:00→23:24)
[2019-08-11] MEDS: MEROPENEM 1GM 100 ML IV SCH ×2 (05:40→13:32)
[2019-08-11 05:49] LABS: BASOPHILS # (AUTO) 0.1 (0.0-0.1); BASOPHILS % 0.6 % (0.0-1.0); EOSINOPHILS # (AUTO) 0.2 (0.0-0.4); EOSINOPHILS % 1.7 % (0.0-6.0); HEMATOCRIT 29.1 % (38.2-49.6); HEMOGLOBIN 8.7 g/dL (14.0-18.0); LYMPHOCYTES # (AUTO) 0.7 (1.0-3.2); LYMPHOCYTES % 7.2 % (18.0-39.1); MEAN CORPUSCULAR HGB CONC 29.9 g/dL (31-35); MEAN CORPUSCULAR VOLUME 103.6 fL (81-99); MONOCYTES % 9.8 % (4.4-11.3); NEUTROPHILS # (AUTO) 7.9 (2.1-6.9); NEUTROPHILS % 79.2 % (38.7-80.0); PLATELET COUNT 214 x10e3/uL (140-360); RED BLOOD COUNT 2.81 x10e6/uL (4.3-5.7)
[2019-08-11 05:56] LABS: INR 1.1; PROTHROMBIN TIME 14.9 seconds (11.9-14.5)
[2019-08-11 05:57] LABS: PARTIAL THROMBOPLASTIN TIME 44.9 seconds (23.8-35.5)
[2019-08-11 06:11] LABS: ALBUMIN 2.7 g/dL (3.5-5.0); ALBUMIN/GLOBULIN RATIO 0.8 (0.8-2.0); ANION GAP 11.7 mmol/L (8-16); CALCIUM 7.8 mg/dL (8.4-10.2); CREATININE, SERUM 1.85 mg/dL (0.72-1.25); POTASSIUM 3.7 mmol/L (3.5-5.1)
[2019-08-11 06:34] LABS: CHOL/HDL RATIO 7.8 (3.9-4.7)
[2019-08-11] MEDS: FENTANYL CITRATE INJ 2,000 MCG in SODIUM CHLORIDE 0.9% 250ML 210 ML IV PRN ×2 (08:00→16:32)
[2019-08-11] MEDS ORDERED: ALBUMIN 25% 25GM 100ML 0.25 GM/ML BTL IV ONE ×2 (08:15→16:00)
[2019-08-11] MEDS ORDERED: FUROSEMIDE INJ 10 MG/ML 4 ML VIAL IV SCH (08:45)
[2019-08-11] MEDS ORDERED: ALBUMIN 25% 12.5GM 50ML 200 ML IV SCH (08:45)
[2019-08-11] MEDS: ASPIRIN 81 MG CHEW TAB PO SCH (08:52)
[2019-08-11] MEDS: BALSAM PERU/CASTOR OIL 60 GM OINT...G. TP SCH (08:52)
[2019-08-11] MEDS: PANTOPRAZOLE 40 MG 10ML VIAL IV SCH ×2 (08:52→16:29)
[2019-08-11] MEDS: EYE LUBRICANT OPTH OINT 3.5GM TUBE OP SCH ×3 (08:52→21:30)
--- NOTE | 2019-08-11 09:30 | Progress Note ---
DATE: Pulmonary Critical Care Progress Note SUBJECTIVE: The patient had decreased urine output yesterday. The patient also had some low blood pressure. He received some albumin in addition to fluids and his blood pressure increased. His urine output last night is still only 100 mL. The patient has increased creatinine to 1.85. Nephrology has been consulted. The patient remains on a PRVC at a rate of 22 with a tidal volume of 360 and a PEEP of 16. His FiO2 is set at 80%. His SaO2 is 92%. PHYSICAL EXAMINATION: VITAL SIGNS: The patient is afebrile. The blood pressure is 134/70 and the heart rate is 115. HEENT: Shows no facial swelling or erythema. CARDIAC: Reveals a regular rate and rhythm with normal S1 and S2. There are no murmurs or rubs heard. LUNGS: Auscultation of lungs reveals crackles at the bases. There is no wheezing. ABDOMEN: Soft and nontender. There is no rebound or guarding. EXTREMITIES: Show no leg edema or calf tenderness. There is no cyanosis or clubbing. Skin: Shows some breakdown in the sacral area. He does have edema in the hands and feet. NEUROLOGICAL: Shows the patient is sedated and paralyzed. LABORATORY DATA: White blood cell count is 9.9 and hemoglobin is 8.7. The platelet count is 214. BUN to creatinine ratio is 20 to 1.85. Sodium is 146. Carbon dioxide is 37. RADIOGRAPHIC DATA: Chest x-ray shows a new PICC line in the SVC. There are bilateral pulmonary infiltrates and small bilateral pleural effusions. IMPRESSION: 1. Acute respiratory failure. 2. Acute respiratory distress syndrome. 3. COVID-19 infection. 4. Acute kidney injury. 5. Leukocytosis that has improved with antibiotics. 6. Hypernatremia. PLAN: 1. Given additional albumin and Lasix now. 2. Await Nephrology consultation. 3. Restart enteral feedings as tolerated. 4. Continue insulin drip. 5. Tracheostomy care. 6. Wean FiO2 as tolerated. 7. Consider decreasing paralytics. 8. Case discussed with assembler adjuster nursing, dayshift nursing, Respiratory, Internal Medicine, Administration, and Infectious Disease. Greater than 90 minutes in direct critical care time. MD RITA Moscoso/[facility] [place] /[id number]
--- NOTE | 2019-08-11 12:05 | Diagnostic Imaging Report ---
EXAMINATION: CHEST SINGLE (PORTABLE) INDICATION: Pneumonia COMPARISON: Multiple prior chest radiograph most recently 08/10/2019 FINDINGS: LINES/TUBES:Tracheostomy tube at the midthoracic trachea. Left PICC line terminates in the superior vena cava. Enteric tube projects below the diaphragm with side port in the stomach and tip not visualized. EKG leads overlie the chest. LUNGS:Unchanged bilateral lower lung predominant interstitial and airspace opacities. PLEURA:Possible small bilateral pleural effusion. No pneumothorax. MEDIASTINUM:The cardiomediastinal silhouette appears unchanged in size and shape. BONES/SOFT TISSUES:No acute osseous injury. ABDOMEN:No free air under the diaphragm. IMPRESSION: No significant interval change. Signed by: Frantz Singer MD on 08/11/2019 12:02 PM
[2019-08-11] MEDS ORDERED: ALBUMIN 25% 25GM 100ML 100 ML IV ONE ×2 (15:00→16:00)
--- NOTE | 2019-08-11 15:56 | Progress Note ---
DATE: SUBJECTIVE: Mr. Thompson remains on a ventilator. He is status post tracheostomy. Discussed with the medical team. He has elevated creatinine and Nephrology was consulted. Discussed case with Nephrology. OBJECTIVE: VITAL SIGNS: The patient was afebrile. Blood pressure is stable. HEENT: Not icteric. NECK: Supple. CHEST: Few crackles. COR: S1 and S2. No murmur. ABDOMEN: Soft. IMPRESSION: 1. Acute kidney injury. Discontinue vancomycin. Adjust antibiotic. 2. Acute respiratory distress syndrome. 3. Status post COVID-19, most recent PCR was negative. 4. Acute kidney injury, new, probably diuretics, probably sepsis, probably acute respiratory distress syndrome. Renal is managing. 5. Leukocytosis is getting better. 6. Hypernatremia. It is going to be a very long hospitalization. Prognosis is guarded due to the acute respiratory distress syndrome. MD SHANNAN Jaramillo/[facility] /[id number]
[2019-08-11] MEDS ORDERED: ALBUMIN 25% 12.5GM 50ML 100 ML IV ONE (16:00)
[2019-08-11] MEDS ORDERED: FUROSEMIDE INJ 10 MG/ML 4 ML VIAL IV ONE (16:00)
[2019-08-11] MEDS: INSULIN REGULAR, HUMAN 3ML VL 100 UNIT in SODIUM CHLORIDE 0.9% 100 ML IV SCH ×2 (16:30)
--- NOTE | 2019-08-11 16:53 | Consultation ---
DATE OF CONSULTATION: REASON FOR CONSULTATION: Acute kidney injury, volume overload. HISTORY OF PRESENT ILLNESS: The patient is currently intubated and sedated. History is reviewed by the doctors note and talking to the nurse at bedside. The patient is a 48-year-old male with past medical history of hypertension and diabetes type 2, was admitted with fever and shortness of breath. The patient was intubated. Chest x-ray on admission showed bilateral infiltrate. Infectious Disease was consulted and the patient was started on IV antibiotics for pneumonia. Eventually, the patient was found to have COVID-19 positive. Eventually, the patient needed tracheostomy, remains on the vent. His blood pressure was low yesterday and urine output dropped. His creatinine jumped from 0.95 to 1.37 yesterday evening. Nephrology was called. This morning, the patient was given 40 mg of IV Lasix with albumin. So far in last 5 hours, some 850 mL of urine. Creatinine jumped up to 1.85. The patient is tachycardic with heart rate in 110s. Blood pressure is reasonable at 141/69. The patient has generalized edema. He was restarted on tube feeding this morning. He is currently on meropenem and had one dose of vancomycin yesterday. The patient was also being followed by Endocrinology for diabetes. PAST MEDICAL HISTORY: Coronary artery disease, status post stent and diabetes type 2. PAST SURGICAL HISTORY: Recent tracheostomy placement. SOCIAL HISTORY: Prior smoker. No history of alcohol abuse. No history of recent travel. ALLERGIES: NO KNOWN DRUG ALLERGIES. FAMILY HISTORY: No history of any kidney disease. REVIEW OF SYSTEMS: Unable to obtain. MEDICATIONS: Currently on meropenem 1 g q.8 hours, pantoprazole 40 mg IV twice a day, aspirin, propofol, and insulin. PHYSICAL EXAMINATION: VITAL SIGNS: Blood pressure 140/68, pulse of 111, 91% oxygen saturation on 90% FiO2 and PEEP of 12, respiratory rate 24, and temperature 98.3. GENERAL: Sedated. HEENT: Atraumatic and normocephalic. NECK: Positive tracheostomy. HEART: S1 and S2. Tachycardic. LUNGS: Coarse breath sounds bilaterally. ABDOMEN: Soft. Bowel sounds positive. EXTREMITIES: Positive edema. NEUROLOGIC: Currently sedated. LABORATORY DATA: Sodium 146, potassium 3.7, chloride 101, CO2 37, BUN 20, creatinine 1.85, glucose 152, and calcium 7.8. Lactic acid 1.0. BNP 396. White count 9.9, hemoglobin 8.7, and platelet count is 214. INR 1.1. UA done yesterday; 6 to 10 rbc, 6 to 10 wbc. No ketone. Leukocyte esterase negative. COVID PCR positive on 07/22 and 07/28, negative on 08/04. Repeat one is pending from 08/08. Echocardiogram done on 07/24/2019, showed ejection fraction 55% and trace pericardial effusion. Trace MR and TR. Repeat echo pending today. Chest x-ray done this morning, bilateral infiltrate, interstitial and air space disease. ASSESSMENT AND PLAN: 1. Acute kidney injury, likely secondary to acute tubular necrosis, currently with gross volume overload. We will give another dose of Lasix 80 mg IV with albumin. May need Lasix drip if does not respond. Monitor electrolytes while on the Lasix. 2. Hypernatremia. Started on free water. Repeat the labs in the morning. 3. Acute respiratory distress syndrome. COVID-19 positive, currently on vent. Infectious Disease and Critical Care following. 4. Diabetes type 2, per Dr. Chua. 5. Hypertension, reasonable control. We will monitor for now. Thank you, Dr. Ch and Dr. Aguirre, for the consult. We will follow the patient with you. Jeimy Prieto MD [facility] /[id number]
[2019-08-11] MEDS: INSULIN GLARGINE 100 UNITS/ML VIAL SQ SCH (21:00)
[2019-08-12] VITALS (24 sets, daily range): BP systolic 100–144; BP diastolic 54–72
[2019-08-12] MEDS: FENTANYL CITRATE INJ 2,000 MCG in SODIUM CHLORIDE 0.9% 250ML 210 ML IV PRN ×2 (00:30→09:02)
--- NOTE | 2019-08-12 02:01 | Diagnostic Imaging Report ---
EXAMINATION: CHEST SINGLE (PORTABLE) INDICATION: Pneumonia COMPARISON: Multiple prior chest radiograph most recently 08/11/2019. FINDINGS: LINES/TUBES:Tracheostomy tube is unchanged. Left PICC line terminates at the brachiocephalic confluence. Enteric tube terminates in the stomach. Overlying EKG leads. LUNGS:Unchanged bilateral mid and lower lung predominant interstitial and airspace opacities. PLEURA:Small bilateral pleural effusions. No pneumothorax. MEDIASTINUM:The cardiomediastinal silhouette appears unchanged in size and shape. BONES/SOFT TISSUES:No acute osseous injury. ABDOMEN:No free air under the diaphragm. IMPRESSION: Unchanged multifocal pneumonia and small bilateral pleural effusions. Lines and tubes as above. No evidence of pneumothorax. Signed by: Dr. Lamar Perla MD on 08/12/2019 1:57 AM
--- NOTE | 2019-08-12 02:02 | Diagnostic Imaging Report ---
KUB-2 views INDICATION: Abd distention COMPARISON: KUB 08/09/2019. FINDINGS/IMPRESSION: Enteric tube terminates in the stomach. Temperature probe terminates in the pelvis. Paucity of air in the small and large bowel without specific evidence of obstruction. No evidence of free intraperitoneal air. The bony structures are unremarkable. Signed by: Dr. Lamar Perla MD on 08/12/2019 1:58 AM
[2019-08-12] MEDS: MEROPENEM 500MG/ NS 50ML 50 ML IV SCH ×2 (02:45→14:11)
[2019-08-12] MEDS: MIDAZOLAM HCL 25 MG in SODIUM CHLORIDE 0.9% 50ML 45 ML IV PRN ×4 (04:35→23:54)
[2019-08-12 04:59] LABS: BASOPHILS # (AUTO) 0.1 (0.0-0.1); BASOPHILS % 0.6 % (0.0-1.0); EOSINOPHILS # (AUTO) 0.3 (0.0-0.4); EOSINOPHILS % 2.6 % (0.0-6.0); HEMATOCRIT 27.8 % (38.2-49.6); HEMOGLOBIN 8.2 g/dL (14.0-18.0); LYMPHOCYTES # (AUTO) 0.7 (1.0-3.2); LYMPHOCYTES % 6.3 % (18.0-39.1); MEAN CORPUSCULAR HEMOGLOBIN 30.9 pg (28-32); MEAN CORPUSCULAR HGB CONC 29.5 g/dL (31-35); MEAN CORPUSCULAR VOLUME 104.9 fL (81-99); MONOCYTES # (AUTO) 1.1 (0.2-0.8); MONOCYTES % 9.9 % (4.4-11.3); NEUTROPHILS # (AUTO) 8.5 (2.1-6.9); NEUTROPHILS % 79.2 % (38.7-80.0); PLATELET COUNT 214 x10e3/uL (140-360); RED BLOOD COUNT 2.65 x10e6/uL (4.3-5.7); RED CELL DISTRIBUTION WIDTH 13.1 % (11.7-14.4)
[2019-08-12 05:20] LABS: ALBUMIN 2.8 g/dL (3.5-5.0); ALBUMIN/GLOBULIN RATIO 0.9 (0.8-2.0); ANION GAP 16.5 mmol/L (8-16); CREATININE, SERUM 2.87 mg/dL (0.72-1.25); POTASSIUM 3.5 mmol/L (3.5-5.1)
[2019-08-12] MEDS: PROPOFOL IV EMULSION 10MG/ML 100 ML IV PRN ×2 (06:45→14:12)
[2019-08-12] MEDS: ASPIRIN 81 MG CHEW TAB PO SCH (07:58)
[2019-08-12] MEDS: BALSAM PERU/CASTOR OIL 60 GM OINT...G. TP SCH (07:58)
[2019-08-12] MEDS: PANTOPRAZOLE 40 MG 10ML VIAL IV SCH ×2 (07:58→16:36)
[2019-08-12] MEDS: EYE LUBRICANT OPTH OINT 3.5GM TUBE OP SCH ×3 (07:58→20:12)
[2019-08-12 08:54] LABS: ABG PCO2 76 mmHg (35-45); ABG PH 7.26 (7.31-7.41)
[2019-08-12 08:55] LABS: ABG BASE EXCESS 3.1 mmol/L (-2 - 3); ABG HCO3 33 mmol/L (23-28); ABG OXYGEN SATURATION 93.9 % (95-98)
[2019-08-12] MEDS ORDERED: FUROSEMIDE INJ 100 MG in SODIUM CHLORIDE 0.9% 100 ML 90 ML IV SCH ×2 (09:00→16:00)
[2019-08-12 10:22] LABS: IRON 22 ug/dL (65-175); TRANSFERRIN < 70 mg/dL (174-364)
[2019-08-12] MEDS ORDERED: FUROSEMIDE INJ 10 MG/ML 4 ML VIAL ONE (15:06)
[2019-08-12] MEDS ORDERED: FUROSEMIDE INJ 10 MG/ML 2 ML VIAL IV ONE (15:30)
[2019-08-12] MEDS ORDERED: HEPARIN SOD (PORCINE) 1000 UNIT/ML SDV IV SCH (16:00)
--- NOTE | 2019-08-12 16:26 | Progress Note ---
DATE: SUBJECTIVE: Mr. Gonsalez remains in the intensive care unit, intubated. His blood cultures are negative. His white count is 10.7, hemoglobin 8.2. His creatinine is 2.87. He is on propofol, meropenem and furosemide. IMPRESSION: 1. Acute kidney injury. I am going to discontinue his meropenem. 2. Respiratory failure. 3. Acute respiratory distress syndrome, status post COVID-19 pneumonia. 4. History of diabetes mellitus. 5. History of coronary artery disease, status post stent, history of smoking before, concerned that the patient is going into acute kidney injury, may end up on dialysis. We will follow. Discussed with the medical team. MD SHANNAN Jaramillo/[facility] /[id number]
--- NOTE | 2019-08-12 16:31 | Progress Note ---
DATE: SUBJECTIVE: The patient has decreased urine output. He received 120 mg of Lasix along with albumin last night and was started on albumin and Lasix drip this morning, but continues to have only about 10-20 mL of urine output per hour. His creatinine is increasing. He remains on a mechanical ventilation with a PRVC at a rate of 24 and tidal volume of 360. His FiO2 is set at 100%. His PEEP is set at 16. PHYSICAL EXAMINATION: VITAL SIGNS: The patient is afebrile. The blood pressure is 113/60 and saturation is 93%. HEENT: Shows no facial swelling or erythema. CARDIAC: Reveals a regular rate and rhythm with normal S1 and S2. LUNGS: Auscultation of lungs reveals crackles of both lung salas. ABDOMEN: Soft, nontender. There is no rebound or guarding. EXTREMITIES: Shows no leg edema or calf tenderness. There is no cyanosis or clubbing. SKIN: Shows no rashes. NEUROLOGIC: Shows no focal abnormalities. LABORATORY DATA: White blood cell count is 10.7 and hemoglobin is 8.2. The platelet count is 214. The BUN to creatinine ratio is 27 to 2.87 and the sodium is 148. IMPRESSION: 1. Acute kidney injury likely secondary to acute tubular necrosis. 2. Acute respiratory failure. 3. Acute respiratory distress syndrome. 4. Viral pneumonia with COVID-19. 5. Diabetes mellitus. 6. Hypertension. PLAN: 1. The patient will continue Lasix drip. He is not responding. He may require ultrafiltration or some type of renal replacement therapy. 2. Continue to decrease FiO2 as tolerated. 3. Continue enteral feeding as tolerated. 4. Continue tracheostomy care. 5. Continue insulin drip. 6. Continue Versed and fentanyl. 7. Case discussed with nightshift nursing, dayshift nursing, Respiratory, Nephrology, Infectious Disease, and the Internal Medicine. Greater than 35 minutes in direct critical care time. Joseph Ch MD [facility] /[id number]
[2019-08-12] MEDS: FUROSEMIDE INJ 100 MG in SODIUM CHLORIDE 0.9% 100 ML 90 ML IV SCH ×3 (16:36→22:10)
[2019-08-12] MEDS ORDERED: NOREPINEPHRINE 8 MG/D5W 250 ML 250 ML ONE (18:43)
[2019-08-12] MEDS ORDERED: SODIUM CHLORIDE 0.9% 1000ML 2,000 ML ONE (19:08)
[2019-08-12] MEDS ORDERED: NITROGLYCERIN/D5W 200 MCG/ML 250 ML ONE (19:19)
[2019-08-12] MEDS: NOREPINEPHRINE INJ 4MG/4ML 8 MG in DEXTROSE 5% 250ML 250 ML IV SCH (19:23)
--- NOTE | 2019-08-12 19:28 | Diagnostic Imaging Report ---
EXAMINATION: CHEST SINGLE (PORTABLE) INDICATION: ^LINE PLACEMENT ^[id number] ^[id number] COMPARISON: Chest radiograph 08/11/2019 FINDINGS: AP view TUBES and LINES: Interval placement of a right IJ central venous catheter with tip overlying the cavoatrial junction. Right and left PICC with tips overlying the cavoatrial junction, stable. Tracheostomy tube and infradiaphragmatic NG/O NG tube are unchanged. LUNGS: Lungs are well inflated. Persistent diffuse bilateral interstitial and alveolar opacities. Bibasilar atelectasis. PLEURA: Small bilateral pleural effusion, unchanged. No pneumothorax. HEART AND MEDIASTINUM: Prominent cardiac silhouette, unchanged. BONES AND SOFT TISSUES: No acute osseous lesion. Soft tissues are unremarkable. UPPER ABDOMEN: No free air under the diaphragm. IMPRESSION: Interval placement of a right IJ central venous catheter with tip overlying the cavoatrial junction. Guidewire appears to be in place. No pneumothorax. Persistent bilateral pulmonary edema and viral multifocal pneumonia and small bilateral pleural effusions. Signed by: Dr. Radha Brown M.D. on 08/12/2019 7:25 PM
[2019-08-12] MEDS: INSULIN GLARGINE 100 UNITS/ML VIAL SQ SCH (20:12)
[2019-08-12] MEDS ORDERED: HEPARIN SOD (PORCINE) 1000 UNIT/ML SDV ONE (20:31)
[2019-08-12] MEDS ORDERED: ALBUMIN 25% 12.5GM 50ML 100 ML IV ONE (20:51)
[2019-08-12] MEDS ORDERED: ALBUMIN 25% 12.5GM 0.25 GM/ML BTL IV SCH (21:00)
[2019-08-13] VITALS (29 sets, daily range): BP systolic 86–129; BP diastolic 48–68
[2019-08-13] MEDS: FENTANYL CITRATE INJ 2,000 MCG in SODIUM CHLORIDE 0.9% 250ML 210 ML IV PRN ×3 (02:22→22:51)
[2019-08-13 05:38] LABS: BASOPHILS # (AUTO) 0.1 (0.0-0.1); BASOPHILS % 0.5 % (0.0-1.0); EOSINOPHILS # (AUTO) 0.1 (0.0-0.4); EOSINOPHILS % 0.5 % (0.0-6.0); HEMATOCRIT 27.7 % (38.2-49.6); HEMOGLOBIN 8.1 g/dL (14.0-18.0); LYMPHOCYTES # (AUTO) 0.8 (1.0-3.2); LYMPHOCYTES % 7.2 % (18.0-39.1); MEAN CORPUSCULAR HEMOGLOBIN 30.6 pg (28-32); MEAN CORPUSCULAR HGB CONC 29.2 g/dL (31-35); MEAN CORPUSCULAR VOLUME 104.5 fL (81-99); MONOCYTES # (AUTO) 1.2 (0.2-0.8); MONOCYTES % 10.3 % (4.4-11.3); NEUTROPHILS # (AUTO) 8.9 (2.1-6.9); NEUTROPHILS % 79.8 % (38.7-80.0); PLATELET COUNT 265 x10e3/uL (140-360); RED BLOOD COUNT 2.65 x10e6/uL (4.3-5.7); RED CELL DISTRIBUTION WIDTH 13.2 % (11.7-14.4)
[2019-08-13 05:52] LABS: ANION GAP 13.9 mmol/L (8-16); CALCIUM 8.3 mg/dL (8.4-10.2); CREATININE, SERUM 4.18 mg/dL (0.72-1.25); MAGNESIUM 2.1 MG/DL (1.3-2.1); PHOSPHORUS 5.1 MG/DL (2.3-4.7); POTASSIUM 3.9 mmol/L (3.5-5.1)
[2019-08-13] MEDS: MIDAZOLAM HCL 25 MG in SODIUM CHLORIDE 0.9% 50ML 45 ML IV PRN ×3 (06:36→21:14)
[2019-08-13] MEDS ORDERED: IRON SUCROSE 100 MG in SODIUM CHLORIDE 0.9% 100 ML 100 ML IV SCH (07:00)
[2019-08-13] MEDS: FUROSEMIDE INJ 100 MG in SODIUM CHLORIDE 0.9% 100 ML 90 ML IV SCH ×4 (07:36→22:10)
[2019-08-13] MEDS: BALSAM PERU/CASTOR OIL 60 GM OINT...G. TP SCH (08:09)
[2019-08-13] MEDS: EYE LUBRICANT OPTH OINT 3.5GM TUBE OP SCH ×3 (08:09→21:13)
[2019-08-13] MEDS: PANTOPRAZOLE 40 MG 10ML VIAL IV SCH ×2 (08:09→16:49)
[2019-08-13] MEDS: ASPIRIN 81 MG CHEW TAB PO SCH (08:09)
[2019-08-13] MEDS ORDERED: SODIUM CHLORIDE 0.9% 1000ML 2,000 ML ONE (10:30)
[2019-08-13] MEDS ORDERED: MANNITOL 25% 12.5GM/50ML 100 ML ONE (11:13)
--- NOTE | 2019-08-13 11:54 | Progress Note ---
DATE: SUBJECTIVE: Mr. Gonsalez remains in intensive care unit, remains on a ventilator. His second PCR for COVID-19 came back negative. PHYSICAL EXAMINATION: GENERAL: Intubated, sedated. VITAL SIGNS: Stable, afebrile. HEENT: Not icteric. NECK: Supple. CHEST: Few crackles. COR: S1, S2. No S3, S4, or murmur. ABDOMEN: Soft. LABORATORY DATA: Reviewed. White count is 10, hemoglobin 8.2, platelet of 214. IMPRESSION: 1. Acute respiratory distress syndrome secondary to COVID-19. 2. Viral pneumonia with COVID-19. 3. Diabetes mellitus. 4. Hypertension. 5. Acute on chronic kidney disease. Continue supportive care. He is off antibiotic. We will observe for aspiration pneumonia. Discussed with the medical team. MD SHANNAN Jaramillo/[facility] /[id number]
--- NOTE | 2019-08-13 15:23 | Progress Note ---
DATE: SUBJECTIVE: The patient is receiving ultrafiltration again today. The goal is to remove 2 L of fluid. He is off paralytics, but remains on Versed at 5 mg an hour and fentanyl at 200 mcg. His FiO2 is set at 95% and his PEEP is set at 16. His tidal volume is 360. His plateau pressure has improved to 27 and his static compliance has improved to 36. PHYSICAL EXAMINATION: VITAL SIGNS: The blood pressure is 113/56 and the pulse is 117. The patient is on a PRVC at a rate of 24 with a FiO2 of 95%. HEENT: Shows no facial swelling or erythema. The oropharynx is normal. There is a tracheostomy site in good position. He has a temporary dialysis catheter in place. The site looks clean. CARDIAC: Reveals a regular rate and rhythm with normal S1 and S2. LUNGS: Auscultation of lungs reveals decreased breath sounds at the bases. There is no wheezing. ABDOMEN: Soft, nontender. There is no rebound or guarding. EXTREMITIES: Shows 1 to 2+ edema. LABORATORY DATA: The white blood cell count is 11.1 and hemoglobin is 8.1. The platelet count is 265. The BUN to creatinine ratio is 34 to 4.18. The other electrolytes are within normal limits. RADIOGRAPHIC DATA: There is persistent bilateral infiltrates and small pleural effusions. The patient has a tracheostomy as well as a new IJ line. IMPRESSION: 1. Acute respiratory failure. 2. Acute respiratory distress syndrome. 3. Viral pneumonia with COVID-19. 4. Acute renal failure. 5. Diabetes mellitus. 6. Hypertension. PLAN: 1. Continue ultrafiltration and dialysis if needed. 2. Wean oxygen as tolerated. 3. Continue enteral feedings. 4. Continue an insulin drip. 5. Continue Versed and fentanyl. 6. Continue tracheostomy care. 7. Case discussed with operations supervisor 2nd shift, nursing, dayshift nursing, dialysis nurse, Nephrology, General surgery, and administration. Greater than 35 minutes in direct critical care time. Joseph Ch MD [facility] /[id number]
--- NOTE | 2019-08-13 16:39 | Diagnostic Imaging Report ---
PROCEDURE: Non-tunneled temporary dialysis catheter placement Procedural Personnel Attending physician(s): Frantz Singer MD Fellow physician(s): None Resident physician(s): None Advanced practice provider(s): None Pre-procedure diagnosis: RACHEL Post-procedure diagnosis: Same Indication: Performance of hemodialysis Additional clinical history: None Complications: No immediate complications. IMPRESSION: Insertion of right-sided non-tunneled triple-lumen temporary dialysis catheter. Plan: Postprocedural chest radiograph shows tip in the cavoatrial junction. The catheter may be used immediately. PROCEDURE SUMMARY: - Venous access with ultrasound guidance - Non-tunneled central venous catheter insertion - Additional procedure(s): None PROCEDURE DETAILS: Pre-procedure Consent: Informed consent for the procedure including risks, benefits and alternatives was obtained and time-out was performed prior to the procedure. Preparation (MIPS): The site was prepared and draped using all elements of maximal sterile barrier technique including sterile gloves, sterile gown, cap, mask, large sterile sheet, sterile ultrasound probe cover, hand hygiene and cutaneous antisepsis with 2% chlorhexidine. Medical reason for site preparation exception (MIPS): Not applicable Anesthesia/sedation Level of anesthesia/sedation: No sedation Anesthesia/sedation administered by: Independent trained observer under attending supervision with continuous monitoring of the patient?s level of consciousness and physiologic status Total intra-service sedation time (minutes): NA Access Local anesthesia was administered. The vessel was sonographically evaluated and determined to be patent. Real time ultrasound was used to visualize needle entry into the vessel and a permanent image was stored. Vein accessed: Internal jugular vein Access technique: Micropuncture set with 21 gauge needle Catheter placement The access site was dilated and the catheter was placed into the vein over a wire . A sterile dressing was applied. Catheter placed: Bard Catheter size (Azerbaijani): 13 Catheter length (cm): 15 Catheter flush: Heparin (1000 units/mL) Catheter securement technique: Non-absorbable suture Contrast Contrast agent: None Contrast volume (mL): N.A Radiation Dose None Additional Details Additional description of procedure: None Equipment details: None Specimens removed: None Estimated blood loss (mL): Less than 10 Standardized report: [email or web address] Attestation Signer name: Frantz Singer MD I attest that I was present for the entire procedure. I reviewed the stored images and agree with the report as written. Signed by: Frantz Singer MD on 08/13/2019 4:36 PM
[2019-08-13] MEDS: NOREPINEPHRINE INJ 4MG/4ML 8 MG in DEXTROSE 5% 250ML 250 ML IV SCH (19:00)
[2019-08-13] MEDS: INSULIN GLARGINE 100 UNITS/ML VIAL SQ SCH (21:13)
[2019-08-14] VITALS (26 sets, daily range): BP systolic 91–174; BP diastolic 50–75
[2019-08-14] MEDS: METOCLOPRAMIDE HCL 10 MG/2ML VIAL IV SCH ×5 (01:00→23:49)
[2019-08-14] MEDS: FUROSEMIDE INJ 100 MG in SODIUM CHLORIDE 0.9% 100 ML 90 ML IV SCH ×4 (04:25→17:32)
[2019-08-14 06:16] LABS: BASOPHILS # (AUTO) 0.1 (0.0-0.1); BASOPHILS % 0.6 % (0.0-1.0); EOSINOPHILS # (AUTO) 0.2 (0.0-0.4); EOSINOPHILS % 1.9 % (0.0-6.0); HEMOGLOBIN 8.4 g/dL (14.0-18.0); LYMPHOCYTES # (AUTO) 0.6 (1.0-3.2); LYMPHOCYTES % 6.3 % (18.0-39.1); MEAN CORPUSCULAR VOLUME 103.3 fL (81-99); NEUTROPHILS # (AUTO) 7.8 (2.1-6.9); NEUTROPHILS % 79.6 % (38.7-80.0); PLATELET COUNT 267 x10e3/uL (140-360); RED BLOOD COUNT 2.71 x10e6/uL (4.3-5.7); RED CELL DISTRIBUTION WIDTH 13.5 % (11.7-14.4)
[2019-08-14 06:38] LABS: CALCIUM 8.2 mg/dL (8.4-10.2); CREATININE, SERUM 4.18 mg/dL (0.72-1.25); MAGNESIUM 2.2 MG/DL (1.3-2.1)
[2019-08-14 06:53] LABS: PHOSPHORUS 4.9 MG/DL (2.3-4.7)
[2019-08-14 07:11] LABS: INR 1.07; PROTHROMBIN TIME 14.6 seconds (11.9-14.5)
[2019-08-14 07:12] LABS: PARTIAL THROMBOPLASTIN TIME 51.8 seconds (23.8-35.5)
[2019-08-14] MEDS: PANTOPRAZOLE 40 MG 10ML VIAL IV SCH ×2 (07:45→17:01)
[2019-08-14] MEDS: ASPIRIN 81 MG CHEW TAB PO SCH (07:45)
[2019-08-14] MEDS: BALSAM PERU/CASTOR OIL 60 GM OINT...G. TP SCH (08:45)
[2019-08-14] MEDS: EYE LUBRICANT OPTH OINT 3.5GM TUBE OP SCH ×3 (08:45→23:50)
[2019-08-14] MEDS: FENTANYL CITRATE INJ 2,000 MCG in SODIUM CHLORIDE 0.9% 250ML 210 ML IV PRN ×2 (08:47→22:15)
[2019-08-14] MEDS: IRON SUCROSE 100 MG in SODIUM CHLORIDE 0.9% 100 ML 100 ML IV SCH (09:03)
[2019-08-14] MEDS ORDERED: SODIUM CHLORIDE 0.9% 1000ML 1,000 ML ONE (11:02)
[2019-08-14] MEDS ORDERED: HEPARIN SOD (PORCINE) 1000 UNIT/ML SDV ONE (11:03)
[2019-08-14] MEDS ORDERED: SODIUM CHLORIDE 0.9% 1000ML 2,000 ML IV PRN (11:15)
[2019-08-14] MEDS ORDERED: MANNITOL 25% 12.5GM/50 ML VIAL IV PRN (11:15)
[2019-08-14 12:04] LABS: ABG PH 7.21 (7.35-7.45)
[2019-08-14 12:05] LABS: ABG PCO2 76 mmHg (35-45)
[2019-08-14 12:06] LABS: ABG BASE EXCESS -0.3 mmol/L (-2 - 3); ABG HCO3 30 mmol/L (21-29); ABG OXYGEN SATURATION 86.7 % (96-97)
--- NOTE | 2019-08-14 13:26 | Progress Note ---
DATE: SUBJECTIVE: Mr. Gonsalez remains in intensive care unit, intubated, sedated, remains on high vent setting. LABORATORY DATA: White count is 9.7, hemoglobin 8.4. His sodium 143, potassium 4.0. His COVID-19 from August 04 and from August 08, all negative. PHYSICAL EXAMINATION: GENERAL: He remains in intensive care unit intubated. CHEST: Crackles bilaterally. HEART: S1, S2. No S3, S4. No murmur. ABDOMEN: Soft. IMPRESSION: 1. COVID-19, acute. 2. We can take him off droplet isolation. Continue with supportive care. He is still too ill to leave the ICU. He needed to stay in the intensive care unit in acute hospital setting till we get a better handle on his vent situation. MD SHANNAN Jaramillo/[facility] /[id number]
--- NOTE | 2019-08-14 14:16 | Progress Note ---
DATE: SUBJECTIVE: The patient is undergoing dialysis again today with more fluid removal. He remains off paralytics but on Versed and fentanyl. He continues on a pressure regulated volume control. PHYSICAL EXAMINATION: VITAL SIGNS: The blood pressure is 125/62, saturation is 92% on 80% FiO2 with a PEEP of 16. The tidal volume is set at 350 and respiratory rate is set at 24. Plateau pressure is decreased to 26. Peak airway pressures are in the high 20s to low 30s. HEENT: Shows no facial swelling or erythema. CARDIAC: Reveals a regular rate and rhythm with normal S1 and S2. There is a tracheostomy in good position. There is a dialysis catheter in the right IJ. LUNGS: Auscultation of lungs shows decreased breath sounds at the bases. There is a PICC line and an arterial line. ABDOMEN: Soft, nontender. There is no rebound or guarding. EXTREMITIES: Shows no leg edema or calf tenderness. There is no cyanosis clubbing. SKIN: Shows no rashes. NEUROLOGICAL: Shows the patient to still be sedated. LABORATORY DATA: White blood cell count is 9.7 and hemoglobin is 8.4. The platelet count is 267. The BUN to creatinine ratio is 33 to 4.18. The electrolytes are within normal limits. RADIOGRAPHIC DATA: Chest x-ray shows persistent bilateral infiltrates. IMPRESSION: 1. Acute respiratory failure. 2. Acute respiratory distress syndrome. 3. Acute renal failure. 4. Diabetes mellitus. 5. Hypertension. PLAN: 1. Complete dialysis and ultrafiltration. 2. Increase tidal volume to correct hypercapnia as tolerated, maintaining a plateau pressure below 30. 3. Continue enteral feedings. 4. Continue Versed and fentanyl and wean if tolerated. 5. Continue to wean FiO2 and PEEP as tolerated. 6. Tracheostomy care. 7. Continue insulin as needed. 8. Case discussed with nightshift nursing, dayshift nursing, Nephrology and Internal Medicine. Greater than 35 minutes in direct critical care time. Joseph Ch MD [facility] /[id number]
[2019-08-14] MEDS ORDERED: ALBUMIN 25% 25GM 100ML 0.25 GM/ML BTL IV ONE (16:15)
[2019-08-14] MEDS ORDERED: ALBUMIN 25% 12.5GM 50ML 200 ML IV ONE (16:30)
[2019-08-14] MEDS: NOREPINEPHRINE INJ 4MG/4ML 8 MG in DEXTROSE 5% 250ML 250 ML IV SCH (16:43)
[2019-08-14] MEDS: INSULIN REGULAR, HUMAN 3ML VL 100 UNIT in SODIUM CHLORIDE 0.9% 100 ML IV SCH ×2 (16:47)
--- NOTE | 2019-08-14 16:47 | Diagnostic Imaging Report ---
EXAM: CHEST SINGLE (PORTABLE) DATE: 08/14/2019 3:38 PM INDICATION: Tracheostomy cannula, right IJ nontunneled dialysis catheter, and left PICC line identified in stable position. Enteric tube noted coursing below the diaphragm and terminating in left upper quadrant expected region of the stomach. There are unchanged bilateral interstitial and airspace opacities in lower lung zone predominance. There is no evidence for pneumothorax. There are possible trace bilateral pleural effusions present. The cardiomediastinal silhouette is stable in appearance. No acute osseous abnormality is identified. IMPRESSION: No significant interval change from 08/12/2019. Stable appearing bilateral lower lung zone predominant interstitial and airspace opacities. Signed by: Dr. Jn Charles MD on 08/14/2019 4:44 PM
[2019-08-14] MEDS: INSULIN GLARGINE 100 UNITS/ML VIAL SQ SCH (20:15)
[2019-08-15] VITALS (24 sets, daily range): BP systolic 100–174; BP diastolic 56–85
[2019-08-15] MEDS ORDERED: VECURONIUM BROMIDE FOR INJ 20 MG VIAL IV STA (00:21)
[2019-08-15] MEDS ORDERED: VECURONIUM BROMIDE FOR INJ 20 MG VIAL ONE (00:29)
[2019-08-15 00:35] LABS: ALBUMIN/GLOBULIN RATIO 0.8 (0.8-2.0); ANION GAP 16.4 mmol/L (8-16); CALCIUM 8.3 mg/dL (8.4-10.2); CREATININE, SERUM 3.62 mg/dL (0.72-1.25); POTASSIUM 4.4 mmol/L (3.5-5.1)
[2019-08-15] MEDS: FUROSEMIDE INJ 100 MG in SODIUM CHLORIDE 0.9% 100 ML 90 ML IV SCH ×3 (00:40→09:23)
[2019-08-15] MEDS: MIDAZOLAM HCL 25 MG in SODIUM CHLORIDE 0.9% 50ML 45 ML IV PRN ×2 (00:41→06:02)
[2019-08-15 00:51] LABS: INR 1.08; PROTHROMBIN TIME 14.7 seconds (11.9-14.5)
[2019-08-15 00:52] LABS: PARTIAL THROMBOPLASTIN TIME 48.5 seconds (23.8-35.5)
[2019-08-15 01:02] LABS: CREATINE KINASE MB 1.2 ng/mL (0-5.0)
[2019-08-15 02:58] LABS: BASOPHILS # (AUTO) 0.1 (0.0-0.1); BASOPHILS % 0.9 % (0.0-1.0); EOSINOPHILS # (AUTO) 0.1 (0.0-0.4); EOSINOPHILS % 1.2 % (0.0-6.0); HEMATOCRIT 27.1 % (38.2-49.6); HEMOGLOBIN 8.1 g/dL (14.0-18.0); LYMPHOCYTES # (AUTO) 0.6 (1.0-3.2); LYMPHOCYTES % 6.3 % (18.0-39.1); MEAN CORPUSCULAR HEMOGLOBIN 30.8 pg (28-32); MEAN CORPUSCULAR HGB CONC 29.9 g/dL (31-35); MONOCYTES # (AUTO) 0.9 (0.2-0.8); NEUTROPHILS % 80.1 % (38.7-80.0); PLATELET COUNT 275 x10e3/uL (140-360); RED BLOOD COUNT 2.63 x10e6/uL (4.3-5.7); RED CELL DISTRIBUTION WIDTH 13.4 % (11.7-14.4)
[2019-08-15 06:26] LABS: BASOPHILS # (AUTO) 0.1 (0.0-0.1); BASOPHILS % 0.6 % (0.0-1.0); EOSINOPHILS % 0.5 % (0.0-6.0); HEMATOCRIT 26.8 % (38.2-49.6); HEMOGLOBIN 8.2 g/dL (14.0-18.0); LYMPHOCYTES # (AUTO) 0.7 (1.0-3.2); LYMPHOCYTES % 8.8 % (18.0-39.1); MEAN CORPUSCULAR HEMOGLOBIN 31.1 pg (28-32); MEAN CORPUSCULAR HGB CONC 30.6 g/dL (31-35); MEAN CORPUSCULAR VOLUME 101.5 fL (81-99); MONOCYTES # (AUTO) 0.9 (0.2-0.8); MONOCYTES % 10.9 % (4.4-11.3); NEUTROPHILS # (AUTO) 6.4 (2.1-6.9); NEUTROPHILS % 76.5 % (38.7-80.0); PLATELET COUNT 245 x10e3/uL (140-360); RED BLOOD COUNT 2.64 x10e6/uL (4.3-5.7); RED CELL DISTRIBUTION WIDTH 13.3 % (11.7-14.4)
[2019-08-15 06:40] LABS: ANION GAP 12.3 mmol/L (8-16); CALCIUM 8.3 mg/dL (8.4-10.2); CREATININE, SERUM 3.86 mg/dL (0.72-1.25); MAGNESIUM 2.1 MG/DL (1.3-2.1); PHOSPHORUS 4.5 MG/DL (2.3-4.7); POTASSIUM 4.3 mmol/L (3.5-5.1)
[2019-08-15] MEDS ORDERED: BISACODYL 10 MG SUPP PR ONE ×2 (07:15→08:00)
[2019-08-15] MEDS: METOCLOPRAMIDE HCL 10 MG/2ML VIAL IV SCH ×3 (07:19→17:20)
[2019-08-15 07:24] LABS: ABG PH 7.27 (7.35-7.45)
[2019-08-15 07:25] LABS: ABG BASE EXCESS -0.7 mmol/L (-2 - 3); ABG HCO3 28 mmol/L (21-29); ABG PCO2 61 mmHg (35-45)
[2019-08-15 07:28] LABS: AMYLASE 21 U/L (25-125); LIPASE < 4 U/L (8-78)
[2019-08-15] MEDS ORDERED: ROCURONIUM BROMIDE 250 MG in SODIUM CHLORIDE 0.9% 250ML 225 ML IV PRN (08:45)
[2019-08-15] MEDS: EYE LUBRICANT OPTH OINT 3.5GM TUBE OP SCH ×3 (09:30→21:57)
[2019-08-15] MEDS: PANTOPRAZOLE 40 MG 10ML VIAL IV SCH ×2 (09:30→17:20)
[2019-08-15] MEDS: IRON SUCROSE 100 MG in SODIUM CHLORIDE 0.9% 100 ML 100 ML IV SCH (09:30)
[2019-08-15] MEDS: BALSAM PERU/CASTOR OIL 60 GM OINT...G. TP SCH (09:31)
[2019-08-15] MEDS: ASPIRIN 81 MG CHEW TAB PO SCH (09:31)
--- NOTE | 2019-08-15 14:45 | Progress Note ---
DATE: SUBJECTIVE: The patient is awaiting dialysis again today. He remains on Versed and fentanyl. The patient continues to have peak airway pressures in the low 30s and mean airway pressures in mid 20s. He is on 90% FiO2 at 14 of PEEP. PHYSICAL EXAMINATION: VITAL SIGNS: The patient is afebrile. The blood pressure is 141/70 and the pulse is 116. Saturation is 92%. HEENT: Shows no facial swelling or erythema. The oropharynx is normal. There is tracheostomy in good position. The site looks clean. There is no drainage. CARDIAC: Reveals regular rate and rhythm with normal S1 and S2. There are no murmurs or rubs. LUNGS: Auscultation of lungs reveals rhonchorous breath sounds bilaterally. There is no wheezing. ABDOMEN: Soft, nontender. There is no rebound or guarding. EXTREMITIES: Shows no leg edema or calf tenderness. There is no cyanosis or clubbing. SKIN: Shows no rashes. LABORATORY DATA: White blood cell count is 8.3 and hemoglobin is 8.2. The platelet count is 245. The BUN to creatinine ratio is 31 to 3.86. The other electrolytes are within normal limits. RADIOGRAPHIC DATA: Chest x-ray shows no significant interval change. IMPRESSION: 1. Acute respiratory failure. 2. Acute respiratory distress syndrome. 3. Acute renal failure. 4. Diabetes. 5. Hypertension. PLAN: 1. Dialysis again today. 2. Continue to wean FiO2 as tolerated. 3. Continue enteral feedings. 4. Continue Versed and fentanyl. 5. Tracheostomy care. 6. Possible PEG placement. 7. Case discussed with dayshift Nursing, shift mechanic Nursing, Respiratory, Internal Medicine and Infectious Disease. Greater than 35 minutes in direct critical care time. Joseph Ch MD [facility]/MODL /[id number]
[2019-08-15] MEDS ORDERED: HEPARIN SOD (PORCINE) 1000 UNIT/ML SDV ONE (15:52)
[2019-08-15] MEDS: FENTANYL CITRATE INJ 2,000 MCG in SODIUM CHLORIDE 0.9% 250ML 210 ML IV PRN (18:27)
--- NOTE | 2019-08-15 18:50 | Progress Note ---
DATE: SUBJECTIVE: Mr. Gonsalez remains in intensive care unit, on a ventilator. His second PCR for COVID-19, came back negative. He is 90% on FiO2 on PEEP 14. Mean airway pressures remained in 20s and peak pressures in most 30s. PHYSICAL EXAMINATION: HEENT: Not icteric. CHEST: Few crackles. COR: S1, S2. ABDOMEN: Soft. IMPRESSION: 1. Adult respiratory distress syndrome. 2. Acute renal failure. 3. Diabetes mellitus. 4. Hypertension. 5. COVID-19 pneumonia, treated. 6. Pneumonia aspiration, treated, currently off antibiotic. PLAN: Discussed with Critical Care to start heparin subcu for DVT prophylaxis. Continue supportive care. MD SHANNAN Jaramillo/MODL /[id number]
[2019-08-15] MEDS: NOREPINEPHRINE INJ 4MG/4ML 8 MG in DEXTROSE 5% 250ML 250 ML IV SCH (19:00)
[2019-08-15] MEDS: MIDAZOLAM HCL 50 MG in SODIUM CHLORIDE 0.9% 100 ML 90 ML IV PRN (20:30)
[2019-08-15] MEDS: INSULIN GLARGINE 100 UNITS/ML VIAL SQ SCH (21:57)
[2019-08-15] MEDS: HEPARIN SOD (PORCINE) 5,000 UNIT/ML VIAL SC SCH (23:03)
[2019-08-16] VITALS (24 sets, daily range): BP systolic 98–181; BP diastolic 51–82
[2019-08-16] MEDS: METOCLOPRAMIDE HCL 10 MG/2ML VIAL IV SCH ×4 (02:03→17:10)
[2019-08-16] MEDS: MIDAZOLAM HCL 50 MG in SODIUM CHLORIDE 0.9% 100 ML 90 ML IV PRN ×2 (04:20→16:17)
[2019-08-16] MEDS: FENTANYL CITRATE INJ 2,000 MCG in SODIUM CHLORIDE 0.9% 250ML 210 ML IV PRN ×3 (05:00→23:10)
[2019-08-16 05:45] LABS: BASOPHILS # (AUTO) 0.1 (0.0-0.1); BASOPHILS % 0.7 % (0.0-1.0); EOSINOPHILS # (AUTO) 0.2 (0.0-0.4); EOSINOPHILS % 2.1 % (0.0-6.0); HEMATOCRIT 27.4 % (38.2-49.6); HEMOGLOBIN 8.2 g/dL (14.0-18.0); LYMPHOCYTES # (AUTO) 0.7 (1.0-3.2); LYMPHOCYTES % 6.5 % (18.0-39.1); MEAN CORPUSCULAR HEMOGLOBIN 30.5 pg (28-32); MEAN CORPUSCULAR HGB CONC 29.9 g/dL (31-35); MEAN CORPUSCULAR VOLUME 101.9 fL (81-99); MONOCYTES # (AUTO) 1.1 (0.2-0.8); MONOCYTES % 10.5 % (4.4-11.3); NEUTROPHILS # (AUTO) 8.1 (2.1-6.9); NEUTROPHILS % 78.4 % (38.7-80.0); PLATELET COUNT 260 x10e3/uL (140-360); RED BLOOD COUNT 2.69 x10e6/uL (4.3-5.7); RED CELL DISTRIBUTION WIDTH 13.6 % (11.7-14.4)
[2019-08-16 06:04] LABS: ANION GAP 11.3 mmol/L (8-16); CREATININE, SERUM 3.38 mg/dL (0.72-1.25); MAGNESIUM 2.1 MG/DL (1.3-2.1); PHOSPHORUS 4.1 MG/DL (2.3-4.7); POTASSIUM 4.3 mmol/L (3.5-5.1)
--- NOTE | 2019-08-16 06:48 | Diagnostic Imaging Report ---
EXAMINATION: CHEST SINGLE (PORTABLE) INDICATION: ARDS. COMPARISON: Multiple prior chest radiograph most recently 08/12/2019. FINDINGS: LINES/TUBES:Tracheostomy tube is unchanged. Left PICC line terminates at the brachiocephalic confluence. Right IJ non tunneled hemodialysis catheter terminates in the SVC. Enteric tube terminates in the stomach. Overlying EKG leads. LUNGS:Slight increased bilateral mid and lower lung predominant interstitial and airspace opacities. PLEURA:Increased small bilateral pleural effusions. No pneumothorax. MEDIASTINUM:The cardiomediastinal silhouette appears unchanged in size and shape. BONES/SOFT TISSUES:No acute osseous injury. ABDOMEN:No free air under the diaphragm. IMPRESSION: Slightly increased bilateral mid and lower lung zone opacities, which may represent a combination of multifocal pneumonia and pulmonary edema. Small bilateral pleural effusions. Signed by: Dr. Lamar Perla MD on 08/16/2019 6:45 AM
[2019-08-16] MEDS: ASPIRIN 81 MG CHEW TAB PO SCH (08:11)
[2019-08-16] MEDS: IRON SUCROSE 100 MG in SODIUM CHLORIDE 0.9% 100 ML 100 ML IV SCH (08:11)
[2019-08-16] MEDS: PANTOPRAZOLE 40 MG 10ML VIAL IV SCH ×2 (08:11→16:18)
[2019-08-16] MEDS: EYE LUBRICANT OPTH OINT 3.5GM TUBE OP SCH ×3 (08:12→20:49)
[2019-08-16] MEDS: HEPARIN SOD (PORCINE) 5,000 UNIT/ML VIAL SC SCH (09:30)
[2019-08-16] MEDS: BALSAM PERU/CASTOR OIL 60 GM OINT...G. TP SCH (09:30)
[2019-08-16] MEDS ORDERED: HEPARIN SOD (PORCINE) 1000 UNIT/ML SDV ONE (11:23)
--- NOTE | 2019-08-16 12:59 | Progress Note ---
DATE: SUBJECTIVE: Mr. Gonsalez remains in the intensive care unit. He is intubated, on hemodialysis. OBJECTIVE: VITAL SIGNS: The patient's temperature 97.4, heart rate 110, respirations 25, blood pressure 160/77. HEENT: Normocephalic, oral intubation. CHEST: Few crackles. COR: S1 and S2. ABDOMEN: Soft. Bowel sounds present. LABORATORY DATA: There is no new data on the cultures. White count is 10.3, hemoglobin 8.2. IMPRESSION: 1. COVID-19 present on admission. 2. PCR from the lung came back negative after 2 weeks. The patient has been slightly sick for about 3 weeks and perhaps more. 3. Acute respiratory distress syndrome, remains very sick. 4. Kolat-ln-emwnxgd kidney disease. 5. Diabetes mellitus. 6. Continue with supportive care. Discussed with the medical team. MD SHANNAN Jaramillo/JAGDISH /[id number]
[2019-08-16] MEDS ORDERED: HEPARIN SOD (PORCINE) 5,000 UNIT/ML VIAL IV ONE (13:45)
--- NOTE | 2019-08-16 14:00 | Progress Note ---
DATE: SUBJECTIVE: The patient continues to receive dialysis. He remains on FiO2 of 90% with a PEEP of 16. He is not having fevers. He is receiving enteral feedings. PHYSICAL EXAMINATION: VITAL SIGNS: The patient is afebrile. Blood pressure is 162/75 and saturation is 95%. He is on a pressure regulated volume control with tidal volume of 380 and a PEEP of 16. His FiO2 is set at 90%. HEENT: Shows no facial swelling or erythema. The oral pharynx is normal. There is a tracheostomy tube in place. There is an IJ line with dialysis catheter. CARDIAC: Reveals regular rate and rhythm with normal S1, S2. LUNGS: Auscultation of lungs shows clear breath sounds bilaterally. There is no wheezing. ABDOMEN: Soft, nontender. There is no leg edema or calf tenderness. There is no cyanosis or clubbing. SKIN: Shows no rashes. NEUROLOGICAL: Shows the patient to be sedated. LABORATORY DATA: BUN to creatinine ratio is 27 to 3.38 and the blood sugars are 90 to 200. The white blood cell count is 10.3 and hemoglobin is 8.2. The platelet count is 260. IMPRESSION: 1. Acute renal failure. 2. Acute respiratory failure. 3. Acute respiratory distress syndrome. 4. Diabetes. 5. Hypertension. PLAN: 1. Repeat blood gas and adjust of minute ventilation as needed. 2. Continue to wean FiO2 as tolerated. 3. Consider beginning intravenous heparin to treat for hypercoagulability and possible pulmonary emboli. The patient's oxygenation remains poor despite resolution of his COVID and removal of the volume overload to dialysis. 4. Continue Versed and fentanyl. 5. Tracheostomy care. 6. Continue enteral feedings. 7. Case discussed with dayshift nurse, nightshift nursing, Respiratory, Internal Medicine, and Infectious Disease. Greater than 35 minutes in direct critical care time. MD RITA Moscoso/JAGDISH /[id number]
[2019-08-16] MEDS ORDERED: HEPARIN 25,000 UNIT DRIP IV ONE (14:04)
[2019-08-16] MEDS ORDERED: HEPARIN 25,000 UNIT 1,500 UNIT in DEXTROSE 5% 250ML 250 ML IV SCH (14:30)
[2019-08-16] MEDS ORDERED: NOREPINEPHRINE INJ 4MG/4ML 8 MG in DEXTROSE 5% 250ML 250 ML IV PRN (17:15)
[2019-08-16] MEDS: INSULIN GLARGINE 100 UNITS/ML VIAL SQ SCH (20:49)
[2019-08-16 21:15] LABS: ANION GAP 11.3 mmol/L (8-16); CALCIUM 8.2 mg/dL (8.4-10.2); CREATININE, SERUM 3.97 mg/dL (0.72-1.25); POTASSIUM 4.3 mmol/L (3.5-5.1)
[2019-08-16] MEDS: SODIUM CHLORIDE 0.9% IV PRN (23:10)
[2019-08-16] MEDS: MIDAZOLAM HCL IV PRN (23:10)
[2019-08-16] MEDS ORDERED: PANTOPRAZOLE 40 MG 10ML VIAL IV STA (23:36)
[2019-08-17] VITALS (24 sets, daily range): BP systolic 94–180; BP diastolic 47–83
[2019-08-17] MEDS: METOCLOPRAMIDE HCL 10 MG/2ML VIAL IV SCH ×4 (00:55→17:03)
[2019-08-17] MEDS: PANTOPRAZOL 40MG/SOD CHL 0.9% 50 ML IV SCH ×5 (00:55→22:10)
[2019-08-17 01:21] LABS: BASOPHILS # (AUTO) 0.1 (0.0-0.1); BASOPHILS % 0.7 % (0.0-1.0); EOSINOPHILS # (AUTO) 0.4 (0.0-0.4); EOSINOPHILS % 3.9 % (0.0-6.0); HEMATOCRIT 24.9 % (38.2-49.6); HEMOGLOBIN 7.6 g/dL (14.0-18.0); LYMPHOCYTES # (AUTO) 0.7 (1.0-3.2); MEAN CORPUSCULAR HEMOGLOBIN 30.5 pg (28-32); MEAN CORPUSCULAR HGB CONC 30.5 g/dL (31-35); MONOCYTES % 10.8 % (4.4-11.3); NEUTROPHILS # (AUTO) 6.8 (2.1-6.9); NEUTROPHILS % 74.3 % (38.7-80.0); PLATELET COUNT 243 x10e3/uL (140-360); RED BLOOD COUNT 2.49 x10e6/uL (4.3-5.7); RED CELL DISTRIBUTION WIDTH 13.4 % (11.7-14.4)
[2019-08-17] MEDS: MIDAZOLAM HCL IV PRN ×3 (04:31→19:15)
[2019-08-17] MEDS: SODIUM CHLORIDE 0.9% IV PRN ×3 (04:31→19:15)
[2019-08-17 05:55] LABS: BASOPHILS # (AUTO) 0.1 (0.0-0.1); BASOPHILS % 0.5 % (0.0-1.0); EOSINOPHILS # (AUTO) 0.5 (0.0-0.4); EOSINOPHILS % 4.9 % (0.0-6.0); HEMATOCRIT 25.7 % (38.2-49.6); HEMOGLOBIN 7.7 g/dL (14.0-18.0); LYMPHOCYTES % 9.4 % (18.0-39.1); MEAN CORPUSCULAR HEMOGLOBIN 30.6 pg (28-32); MONOCYTES # (AUTO) 1.2 (0.2-0.8); MONOCYTES % 11.3 % (4.4-11.3); NEUTROPHILS # (AUTO) 7.7 (2.1-6.9); NEUTROPHILS % 71.1 % (38.7-80.0); PLATELET COUNT 258 x10e3/uL (140-360); RED BLOOD COUNT 2.52 x10e6/uL (4.3-5.7); RED CELL DISTRIBUTION WIDTH 13.6 % (11.7-14.4)
[2019-08-17 06:20] LABS: ALBUMIN 2.4 g/dL (3.5-5.0); ALBUMIN/GLOBULIN RATIO 0.7 (0.8-2.0); ALKALINE PHOSPHATASE 82 IU/L (40-150); BLOOD UREA NITROGEN 36 mg/dL (7-26); BUN/CREATININE RATIO 9 (6-25); CALCIUM 8.2 mg/dL (8.4-10.2); CARBON DIOXIDE 30 mmol/L (22-29); CHLORIDE 104 mmol/L (98-107); CREATININE, SERUM 4.21 mg/dL (0.72-1.25); EST GLOMERULAR FILTRATION RATE 15 ML/MIN (60-); GLUCOSE 125 mg/dL (74-118); SODIUM 140 mmol/L (136-145)
[2019-08-17 06:37] LABS: ALANINE AMINOTRANSFERASE < 6 IU/L (0-55)
[2019-08-17 06:43] LABS: MAGNESIUM 2.2 MG/DL (1.3-2.1)
--- NOTE | 2019-08-17 07:28 | Diagnostic Imaging Report ---
EXAMINATION: CHEST SINGLE (PORTABLE) INDICATION: ARDS, mechanical ventilation. COMPARISON: Chest radiograph performed 11/24/2019. FINDINGS: LINES/TUBES:Tracheostomy tube is unchanged. Left PICC line terminates at the brachiocephalic confluence. Right arm PICC terminates in the SVC. Right IJ non tunneled hemodialysis catheter terminates in the SVC. Enteric tube terminates in the stomach. Overlying EKG leads. LUNGS:Bilateral multifocal interstitial and airspace opacities. PLEURA:Small bilateral pleural effusions, right greater than left. No pneumothorax. MEDIASTINUM:Mildly enlarged cardiomediastinal silhouette. BONES/SOFT TISSUES:No acute osseous abnormality. ABDOMEN:No free air under the diaphragm. IMPRESSION: Bilateral multifocal opacities, which may represent ARDS, multifocal pneumonia, and/or pulmonary edema. Lines and tubes as above. No evidence of pneumothorax. Signed by: Dr. Lamar Perla MD on 08/17/2019 7:24 AM
[2019-08-17] MEDS: EYE LUBRICANT OPTH OINT 3.5GM TUBE OP SCH ×3 (08:26→22:10)
[2019-08-17] MEDS: IRON SUCROSE 100 MG in SODIUM CHLORIDE 0.9% 100 ML 100 ML IV SCH (08:26)
[2019-08-17] MEDS: BALSAM PERU/CASTOR OIL 60 GM OINT...G. TP SCH (08:26)
[2019-08-17] MEDS: ASPIRIN 81 MG CHEW TAB PO SCH (08:26)
[2019-08-17] MEDS: SUCRALFATE 1 GM TAB PO SCH ×4 (08:26→22:10)
[2019-08-17] MEDS: FENTANYL CITRATE INJ 2,000 MCG in SODIUM CHLORIDE 0.9% 250ML 210 ML IV PRN (08:30)
[2019-08-17] MEDS ORDERED: HEPARIN SOD (PORCINE) 1000 UNIT/ML SDV ONE (11:22)
--- NOTE | 2019-08-17 15:02 | Progress Note ---
DATE: SUBJECTIVE: The patient is receiving ultrafiltration again today. The patient remains on 95% oxygen with 14 PEEP. There are no fevers. PHYSICAL EXAMINATION: VITAL SIGNS: The blood pressure is 127/65 and saturation is now 92% on the PRVC set at 24 with a tidal volume of 400 and PEEP of 14. FiO2 is set at 95%. HEENT: No facial swelling or erythema. There is a tracheostomy tube in position. There is a dialysis catheter in the right IJ. The PICC line is in place. CARDIAC: Regular rate and rhythm with normal S1, S2. LUNGS: Auscultation of the lungs reveals decreased breath sounds at the bases. There is no wheezing. ABDOMEN: Soft, nontender. There is no rebound or guarding. EXTREMITIES: No leg edema or calf tenderness. There is no cyanosis or clubbing. SKIN: No rashes. LABORATORY DATA: Blood gas this morning is still pending. White blood cell count is 10.4 and hemoglobin is 7.7. The platelet count is 258,000. The BUN to creatinine ratio is 36 to 4.21. Other electrolytes are within normal limits. Albumin is 2.4. RADIOGRAPHIC DATA: Chest x-ray shows persistent bilateral infiltrates. IMPRESSION: 1. Acute respiratory failure. 2. Acute respiratory distress syndrome. 3. Acute renal failure. 4. Diabetes. 5. Hypertension. PLAN: 1. The patient is scheduled for 4-5 L of fluid removal with ultrafiltration today. 2. Continue to wean FiO2 as tolerated. 3. Continue heparin for now. 4. Continue Versed and fentanyl. 5. Tracheostomy care. 6. Possible PEG. 7. Continue enteral feedings. 8. Case discussed with Nephrology, Respiratory, overnight houseperson nursing and dayshift nursing. Greater than 35 minutes in direct critical care time. MD RITA Moscoso/DENICEL /[id number]
[2019-08-17] MEDS ORDERED: NOREPINEPHRINE 8 MG/D5W 250 ML 250 ML ONE (16:37)
[2019-08-17] MEDS: INSULIN GLARGINE 100 UNITS/ML VIAL SQ SCH (21:00)
[2019-08-17 23:04] LABS: BASOPHILS # (AUTO) 0.1 (0.0-0.1); BASOPHILS % 0.6 % (0.0-1.0); EOSINOPHILS # (AUTO) 0.5 (0.0-0.4); HEMATOCRIT 25.5 % (38.2-49.6); HEMOGLOBIN 7.8 g/dL (14.0-18.0); LYMPHOCYTES % 10.9 % (18.0-39.1); MEAN CORPUSCULAR HEMOGLOBIN 30.8 pg (28-32); MEAN CORPUSCULAR HGB CONC 30.6 g/dL (31-35); MEAN CORPUSCULAR VOLUME 100.8 fL (81-99); MONOCYTES # (AUTO) 0.8 (0.2-0.8); MONOCYTES % 8.7 % (4.4-11.3); NEUTROPHILS # (AUTO) 6.9 (2.1-6.9); NEUTROPHILS % 72.5 % (38.7-80.0); PLATELET COUNT 245 x10e3/uL (140-360); RED BLOOD COUNT 2.53 x10e6/uL (4.3-5.7); RED CELL DISTRIBUTION WIDTH 13.9 % (11.7-14.4)
[2019-08-17 23:16] LABS: ALBUMIN 2.4 g/dL (3.5-5.0); ALBUMIN/GLOBULIN RATIO 0.7 (0.8-2.0); ALKALINE PHOSPHATASE 67 IU/L (40-150); ANION GAP 11.3 mmol/L (8-16); CALCIUM 8.2 mg/dL (8.4-10.2); CARBON DIOXIDE 28 mmol/L (22-29); CHLORIDE 104 mmol/L (98-107); EST GLOMERULAR FILTRATION RATE 14 ML/MIN (60-); GLUCOSE 109 mg/dL (74-118); MAGNESIUM 2.5 MG/DL (1.3-2.1); PHOSPHORUS 4.5 MG/DL (2.3-4.7); POTASSIUM 4.3 mmol/L (3.5-5.1); SODIUM 139 mmol/L (136-145)
[2019-08-17 23:23] LABS: ALANINE AMINOTRANSFERASE < 6 IU/L (0-55)
[2019-08-17 23:36] LABS: BLOOD UREA NITROGEN 41 mg/dL (7-26); BUN/CREATININE RATIO 9 (6-25)
[2019-08-17 23:51] LABS: CREATINE KINASE MB 1.7 ng/mL (0-5.0)
[2019-08-18] VITALS (40 sets, daily range): BP systolic 77–152; BP diastolic 40–75
[2019-08-18] MEDS: PANTOPRAZOL 40MG/SOD CHL 0.9% 50 ML IV SCH ×5 (00:45→20:45)
[2019-08-18] MEDS: METOCLOPRAMIDE HCL 10 MG/2ML VIAL IV SCH ×5 (00:48→23:47)
[2019-08-18] MEDS: SODIUM CHLORIDE 0.9% IV PRN ×3 (02:28→18:35)
[2019-08-18] MEDS: MIDAZOLAM HCL IV PRN ×3 (02:28→18:35)
[2019-08-18] MEDS: FENTANYL CITRATE INJ 2,000 MCG in SODIUM CHLORIDE 0.9% 250ML 210 ML IV PRN (06:00)
[2019-08-18 06:13] LABS: BASOPHILS # (AUTO) 0.1 (0.0-0.1); BASOPHILS % 0.8 % (0.0-1.0); EOSINOPHILS # (AUTO) 0.5 (0.0-0.4); EOSINOPHILS % 5.1 % (0.0-6.0); HEMATOCRIT 25.8 % (38.2-49.6); HEMOGLOBIN 7.9 g/dL (14.0-18.0); LYMPHOCYTES # (AUTO) 0.8 (1.0-3.2); LYMPHOCYTES % 7.9 % (18.0-39.1); MEAN CORPUSCULAR HEMOGLOBIN 30.7 pg (28-32); MEAN CORPUSCULAR HGB CONC 30.6 g/dL (31-35); MEAN CORPUSCULAR VOLUME 100.4 fL (81-99); MONOCYTES % 9.1 % (4.4-11.3); NEUTROPHILS # (AUTO) 7.9 (2.1-6.9); NEUTROPHILS % 74.6 % (38.7-80.0); PLATELET COUNT 258 x10e3/uL (140-360); RED BLOOD COUNT 2.57 x10e6/uL (4.3-5.7); RED CELL DISTRIBUTION WIDTH 13.7 % (11.7-14.4)
[2019-08-18 06:26] LABS: ALBUMIN 2.4 g/dL (3.5-5.0); ALBUMIN/GLOBULIN RATIO 0.7 (0.8-2.0); ALKALINE PHOSPHATASE 73 IU/L (40-150); ANION GAP 12.4 mmol/L (8-16); BLOOD UREA NITROGEN 46 mg/dL (7-26); BUN/CREATININE RATIO 9 (6-25); CALCIUM 8.5 mg/dL (8.4-10.2); CARBON DIOXIDE 28 mmol/L (22-29); CHLORIDE 102 mmol/L (98-107); CREATININE, SERUM 4.91 mg/dL (0.72-1.25); EST GLOMERULAR FILTRATION RATE 13 ML/MIN (60-); GLUCOSE 144 mg/dL (74-118); POTASSIUM 4.4 mmol/L (3.5-5.1); SODIUM 138 mmol/L (136-145)
[2019-08-18 06:27] LABS: ALANINE AMINOTRANSFERASE < 6 IU/L (0-55)
[2019-08-18 07:22] LABS: EOSINOPHILS % (MANUAL) 7 % (0-7); HYPOCHROMASIA MODERATE; LYMPHOCYTES % (MANUAL) 10 % (19-48); MONOCYTES % (MANUAL) 3 % (3.4-9.0); NEUTROPHILS % (MANUAL) 80 % (40-74); PLATELET ESTIMATE ADEQUATE; PLATELET MORPHOLOGY COMMENT FEW LARGE; RBC MORPHOLOGY COMMENT NORMAL
[2019-08-18] MEDS: EYE LUBRICANT OPTH OINT 3.5GM TUBE OP SCH ×3 (08:25→23:46)
[2019-08-18] MEDS: ASPIRIN 81 MG CHEW TAB PO SCH (08:25)
[2019-08-18] MEDS: SUCRALFATE 1 GM TAB PO SCH ×3 (08:25→16:53)
[2019-08-18] MEDS: IRON SUCROSE 100 MG in SODIUM CHLORIDE 0.9% 100 ML 100 ML IV SCH (08:25)
[2019-08-18] MEDS: BALSAM PERU/CASTOR OIL 60 GM OINT...G. TP SCH (08:46)
--- NOTE | 2019-08-18 09:59 | Diagnostic Imaging Report ---
EXAMINATION: CHEST SINGLE (PORTABLE) INDICATION: Pneumonia COMPARISON: Chest radiograph of 08/17/2019 FINDINGS: LINES/TUBES:Lines and tubes unchanged. LUNGS:The lungs are moderately inflated. There is perihilar fullness and indistinctness of the pulmonary vasculature. Unchanged bilateral airspace opacities. PLEURA:Small bilateral pleural effusion. No pneumothorax. MEDIASTINUM:The cardiomediastinal silhouette appears unchanged in size and shape. BONES/SOFT TISSUES:No acute osseous injury. ABDOMEN:No free air under the diaphragm. IMPRESSION: Unchanged bilateral airspace opacities. Lines and tubes unchanged. Signed by: Frantz Singer MD on 08/18/2019 9:56 AM
--- NOTE | 2019-08-18 11:45 | Progress Note ---
DATE: SUBJECTIVE: The patient had dialysis yesterday and had 3.5 L removed. His FiO2 is decreased at 80%, but had to be increased back to 100% earlier this morning. The patient is hemodynamically stable. PHYSICAL EXAMINATION: VITAL SIGNS: The blood pressure is 127/68 and the heart rate is 116. Saturation is 93% to 100%. HEENT: Shows no facial swelling or erythema. There is a tracheostomy tube in good position. There is a right IJ line with dialysis access. There is PICC line. CARDIAC: Reveals regular rate and rhythm with normal S1 and S2. LUNGS: Auscultation of lungs reveals rhonchorous breath sounds bilaterally. There is no wheezing. ABDOMEN: Soft, nontender. There is no rebound or guarding. EXTREMITIES: Examination of the extremities shows 2+ leg edema. LABORATORY DATA: White blood cell count is 10.6 and hemoglobin is 7.9. The platelet count is 258. The BUN to creatinine ratio is 46 to 4.9 and the other electrolytes are within normal limits. RADIOGRAPHIC DATA: Continue bilateral infiltrates. IMPRESSION: 1. Acute respiratory failure. 2. Acute respiratory distress syndrome. 3. Acute renal failure. 4. Diabetes. 5. Hypertension. PLAN: 1. Arrange for ultrafiltration again today with 3 to 4 L of fluid removal. 2. Continue to wean FiO2 as tolerated. 3. Continue Versed and fentanyl. 4. Tracheostomy care. 5. Continue enteral feedings. 6. Case discussed with mother, Nephrology, Respiratory, assistant casino shift manager nursing, and day shift nursing. Greater than 35 minutes in direct critical care time. Joseph Ch MD [facility]/DENICEL /[id number]
[2019-08-18] MEDS ORDERED: HEPARIN SOD (PORCINE) 1000 UNIT/ML SDV IV PRN (17:00)
[2019-08-18] MEDS ORDERED: SODIUM CHLORIDE 0.9% 250ML 500 ML IV PRN (17:00)
--- NOTE | 2019-08-18 18:47 | Progress Note ---
DATE: SUBJECTIVE: Mr. Gonsalez remains in intensive care unit intubated, sedated. PHYSICAL EXAMINATION: GENERAL: He is intubated, noncommunicative. VITAL SIGNS: Stable, afebrile. HEENT: He is not icteric. NECK: Supple. CHEST: Crackles bilateral. HEART: S1, S2. IMPRESSION: Acute respiratory failure, acute respiratory distress syndrome, status post COVID-19 pneumonia present on admission, diabetes mellitus, hypertension, acute on chronic kidney disease. On ultrafiltration. Continue supportive care. Currently very lengthy weaning. MD SHANNAN Jaramillo/MODL /[id number]
[2019-08-18] MEDS: INSULIN REGULAR, HUMAN 3ML VL 100 UNIT in SODIUM CHLORIDE 0.9% 100 ML IV SCH ×2 (19:16)
[2019-08-18] MEDS: INSULIN GLARGINE 100 UNITS/ML VIAL SQ SCH (21:00)
[2019-08-18] MEDS: SUCRALFATE 1 GM/10 ML SUSP NG SCH (23:46)
[2019-08-18] MEDS: HEPARIN SOD (PORCINE) 5,000 UNIT/ML VIAL SC SCH (23:46)
[2019-08-19] VITALS (37 sets, daily range): BP systolic 83–166; BP diastolic 43–80
[2019-08-19] MEDS: PANTOPRAZOL 40MG/SOD CHL 0.9% 50 ML IV SCH ×5 (02:00→22:10)
[2019-08-19 05:46] LABS: BASOPHILS # (AUTO) 0.1 (0.0-0.1); BASOPHILS % 0.5 % (0.0-1.0); EOSINOPHILS # (AUTO) 0.3 (0.0-0.4); EOSINOPHILS % 2.5 % (0.0-6.0); HEMATOCRIT 26.3 % (38.2-49.6); LYMPHOCYTES % 8.4 % (18.0-39.1); MEAN CORPUSCULAR HEMOGLOBIN 30.5 pg (28-32); MEAN CORPUSCULAR HGB CONC 30.4 g/dL (31-35); MEAN CORPUSCULAR VOLUME 100.4 fL (81-99); MONOCYTES # (AUTO) 0.8 (0.2-0.8); MONOCYTES % 7.1 % (4.4-11.3); NEUTROPHILS # (AUTO) 8.7 (2.1-6.9); NEUTROPHILS % 77.7 % (38.7-80.0); PLATELET COUNT 246 x10e3/uL (140-360); RED BLOOD COUNT 2.62 x10e6/uL (4.3-5.7)
[2019-08-19 05:54] LABS: ANION GAP 12.5 mmol/L (8-16); CALCIUM 8.3 mg/dL (8.4-10.2); CREATININE, SERUM 3.84 mg/dL (0.72-1.25); MAGNESIUM 2.1 MG/DL (1.3-2.1); PHOSPHORUS 3.9 MG/DL (2.3-4.7); POTASSIUM 4.5 mmol/L (3.5-5.1)
[2019-08-19 05:56] LABS: INR 1.03; PROTHROMBIN TIME 14.1 seconds (11.9-14.5)
--- NOTE | 2019-08-19 06:19 | Progress Note ---
DATE: 08/17/2019 SUBJECTIVE: Mr. Gonsalez remains in the intensive care unit, status post trach. The patient remains on the vent, discussed with critical care. PHYSICAL EXAMINATION: GENERAL: Sedated. HEENT: Not icteric. NECK: Supple. CHEST: Crackles bilateral. COR: S1 and S2. ABDOMEN: Soft. Bowel sounds present. EXTREMITIES: No edema. IMPRESSION: 1. Acute respiratory failure from acute renal failure, concern is fluid overload. He is going to be dialyzed more with removal of more fluid. 2. Status post COVID-19. Two PCRs were negative. 3. Diabetes with DKA post admission. 4. Anemia, currently off antibiotic. Continue supportive care. We will follow. Danni Borges MD [facility] /[id number]
[2019-08-19] MEDS: METOCLOPRAMIDE HCL 10 MG/2ML VIAL IV SCH ×3 (06:47→17:13)
--- NOTE | 2019-08-19 08:25 | Diagnostic Imaging Report ---
TECHNIQUE: Frontal view of the chest. INDICATION: ^ARDS/Mech Ventilation COMPARISON: Prior day. IMPRESSION: Lines and hardware: Stable. Heart and mediastinum: Stable. Lungs and pleura: Mild improvement in the aeration of the right lung. Otherwise, stable bilateral patchy airspace opacities with small bilateral pleural effusions. No pneumothorax. Soft tissues and bones: No acute abnormality. Signed by: Balta Soriano MD on 08/19/2019 8:22 AM
[2019-08-19] MEDS: BALSAM PERU/CASTOR OIL 60 GM OINT...G. TP SCH (08:40)
[2019-08-19] MEDS: EYE LUBRICANT OPTH OINT 3.5GM TUBE OP SCH ×3 (08:40→21:51)
[2019-08-19] MEDS: ASPIRIN 81 MG CHEW TAB PO SCH (08:40)
[2019-08-19] MEDS: SUCRALFATE 1 GM/10 ML SUSP NG SCH ×4 (08:40→21:51)
[2019-08-19] MEDS: HEPARIN SOD (PORCINE) 5,000 UNIT/ML VIAL SC SCH ×2 (08:41→21:52)
[2019-08-19] MEDS: IRON SUCROSE 100 MG in SODIUM CHLORIDE 0.9% 100 ML 100 ML IV SCH (08:48)
[2019-08-19] MEDS: MIDAZOLAM HCL IV PRN ×2 (09:54→20:30)
[2019-08-19] MEDS: SODIUM CHLORIDE 0.9% IV PRN ×2 (09:54→20:30)
[2019-08-19] MEDS ORDERED: ALBUMIN 25% 12.5GM 50ML 100 ML IV ONE (11:56)
[2019-08-19] MEDS ORDERED: VECURONIUM BROMIDE FOR INJ 20 MG VIAL IV ONE (12:00)
[2019-08-19] MEDS ORDERED: ALBUMIN 25% 12.5GM 0.25 GM/ML BTL IV ONE (12:00)
[2019-08-19] MEDS: FENTANYL CITRATE INJ 2,000 MCG in SODIUM CHLORIDE 0.9% 250ML 210 ML IV PRN (13:30)
--- NOTE | 2019-08-19 17:01 | Progress Note ---
DATE: SUBJECTIVE: The patient had dialysis done today and 2.5 L were removed. He had some tachycardia and difficulty synchronizing with the ventilator today and required one dose of vecuronium. The patient is not having fevers. PHYSICAL EXAMINATION: VITAL SIGNS: The blood pressure is 109/51, heart rate is 100 to 110. He is currently on PRVC at a rate of 24 with tidal volume of 400 and PEEP of 16. His FiO2 is 80%. HEENT: Nasogastric tube. He has a right IJ dialysis catheter. He has PICC line in place. CARDIAC: Regular rate and rhythm with normal S1, S2. LUNGS: Auscultation of the lungs reveals crackles at the bases. There is no wheezing. ABDOMEN: Soft, nontender. There is no rebound or guarding. EXTREMITIES: No leg edema or calf tenderness. There is no cyanosis or clubbing. SKIN: No rashes. RADIOGRAPHIC DATA: Chest x-ray shows continued bilateral airspace opacities. LABORATORY DATA: White blood cell count 11.2 and hemoglobin is 8. The platelet count is 246,000. BUN to creatinine ratio is 33 to 3.89. The other electrolytes are within normal limits. IMPRESSION: 1. Respiratory failure. 2. Acute renal failure. 3. Diabetes. 4. Hypertension. PLAN: 1. Continue to wean FiO2 and PEEP as tolerated. 2. Continue Versed and fentanyl. 3. Tracheostomy care. 4. Continue enteral feedings. 5. Scheduled for tracheostomy tomorrow. Joseph Ch MD [facility]/DENICEL /[id number]
--- NOTE | 2019-08-19 17:46 | Progress Note ---
DATE: SUBJECTIVE: Mr. Gonsalez remains in intensive care unit, intubated and sedated. PHYSICAL EXAMINATION: VITAL SIGNS: Stable. Heart rate 117, respirations 30, blood pressure 119/60. Vent setting reviewed. HEENT: Normocephalic. CHEST: A few crackles. COR: S1, S2. ABDOMEN: Soft. IMPRESSION: 1. COVID-19. 2. Acute respiratory distress syndrome. 3. Respiratory failure. 4. Renal failure. 5. Anemia. PLAN: Continue weaning as tolerated. The patient is currently off antibiotic. We will follow. MD SHANNAN Jaramillo/MODL /[id number]
[2019-08-19] MEDS: INSULIN GLARGINE 100 UNITS/ML VIAL SQ SCH (21:00)
[2019-08-20] VITALS (32 sets, daily range): BP systolic 81–168; BP diastolic 42–81
[2019-08-20] MEDS: METOCLOPRAMIDE HCL 10 MG/2ML VIAL IV SCH ×4 (01:30→17:34)
[2019-08-20] MEDS: FENTANYL CITRATE INJ 2,000 MCG in SODIUM CHLORIDE 0.9% 250ML 210 ML IV PRN ×2 (02:11→14:30)
[2019-08-20] MEDS: PANTOPRAZOL 40MG/SOD CHL 0.9% 50 ML IV SCH ×5 (04:08→20:31)
[2019-08-20 05:34] LABS: BASOPHILS # (AUTO) 0.1 (0.0-0.1); BASOPHILS % 0.6 % (0.0-1.0); EOSINOPHILS # (AUTO) 0.5 (0.0-0.4); EOSINOPHILS % 4.2 % (0.0-6.0); HEMATOCRIT 24.9 % (38.2-49.6); HEMOGLOBIN 7.5 g/dL (14.0-18.0); LYMPHOCYTES # (AUTO) 1.3 (1.0-3.2); LYMPHOCYTES % 11.6 % (18.0-39.1); MEAN CORPUSCULAR HEMOGLOBIN 30.5 pg (28-32); MEAN CORPUSCULAR HGB CONC 30.1 g/dL (31-35); MEAN CORPUSCULAR VOLUME 101.2 fL (81-99); MONOCYTES # (AUTO) 1.1 (0.2-0.8); MONOCYTES % 9.5 % (4.4-11.3); NEUTROPHILS % 70.7 % (38.7-80.0); PLATELET COUNT 244 x10e3/uL (140-360); RED BLOOD COUNT 2.46 x10e6/uL (4.3-5.7); RED CELL DISTRIBUTION WIDTH 14.2 % (11.7-14.4)
[2019-08-20 05:48] LABS: ANION GAP 11.5 mmol/L (8-16); CALCIUM 7.7 mg/dL (8.4-10.2); CREATININE, SERUM 4.58 mg/dL (0.72-1.25); MAGNESIUM 2.3 MG/DL (1.3-2.1); PHOSPHORUS 4.5 MG/DL (2.3-4.7); POTASSIUM 4.5 mmol/L (3.5-5.1)
[2019-08-20] MEDS: INSULIN REGULAR, HUMAN 3ML VL 100 UNIT in SODIUM CHLORIDE 0.9% 100 ML IV SCH ×2 (06:01)
[2019-08-20] MEDS: SUCRALFATE 1 GM/10 ML SUSP NG SCH ×4 (08:08→21:00)
[2019-08-20] MEDS: ASPIRIN 81 MG CHEW TAB PO SCH (08:09)
[2019-08-20] MEDS: EYE LUBRICANT OPTH OINT 3.5GM TUBE OP SCH ×3 (08:09→23:11)
[2019-08-20] MEDS: BALSAM PERU/CASTOR OIL 60 GM OINT...G. TP SCH (08:09)
[2019-08-20] MEDS: IRON SUCROSE 100 MG in SODIUM CHLORIDE 0.9% 100 ML 100 ML IV SCH (08:09)
--- NOTE | 2019-08-20 08:22 | Diagnostic Imaging Report ---
EXAMINATION: CHEST SINGLE (PORTABLE) INDICATION: Pneumonia. Sepsis. Mechanical ventilation. COMPARISON: Chest radiograph of 08/19/2019 FINDINGS: LINES/TUBES:Supporting tubes and lines are unchanged in position (right upper extremity PICC. Left upper extremity PICC, right IJ catheter, and enteric tube with distal tip not included. LUNGS:The lungs are moderately inflated. Redemonstration of bilateral patchy airspace disease, most markedly involving the mid to lower lungs. Slight increased aeration of the left upper lobe. Bilateral pulmonary venous congestion. Bilateral perihilar, peribronchial thickening. PLEURA:Bilateral small pleural effusions, right greater than left. No pneumothorax. MEDIASTINUM:The cardiomediastinal silhouette is partially obscured, however, appears mildly enlarged. BONES/SOFT TISSUES:No acute osseous injury. ABDOMEN:No free air under the diaphragm. IMPRESSION: No significant interval change bilateral patchy airspace opacities. Stable supporting tubes and lines. Signed by: Dr. Jaylin Good M.D. on 08/20/2019 8:18 AM
[2019-08-20] MEDS: HEPARIN SOD (PORCINE) 5,000 UNIT/ML VIAL SC SCH ×2 (08:34→21:00)
[2019-08-20 09:30] LABS: ANISOCYTOSIS R; EOSINOPHILS % (MANUAL) 4 % (0-7); LYMPHOCYTES % (MANUAL) 5 % (19-48); METAMYELOCYTES % (MANUAL) 1 % (0-0); MONOCYTES % (MANUAL) 14 % (3.4-9.0); NEUTROPHILS % (MANUAL) 76 % (40-74); PLATELET ESTIMATE ADEQUATE; PLATELET MORPHOLOGY COMMENT NORMAL
[2019-08-20 09:31] LABS: POLYCHROMASIA FEW; RBC MORPHOLOGY COMMENT ABNORMAL
[2019-08-20 11:41] LABS: ABG PCO2 61 mmHg (35-45); ABG PH 7.22 (7.35-7.45)
[2019-08-20 11:42] LABS: ABG BASE EXCESS -4.6 mmol/L (-2 - 3); ABG HCO3 24 mmol/L (21-29)
[2019-08-20 11:43] LABS: ABG OXYGEN SATURATION 94.6 % (96-97)
--- NOTE | 2019-08-20 12:55 | Progress Note ---
DATE: SUBJECTIVE: Mr. Gonsalez remains in intensive care unit on the ventilator, still high FiO2 of 85 to 90, still high PEEP. OBJECTIVE: VITAL SIGNS: Stable, afebrile. HEENT: He is not icteric. Trach. CHEST: Few rhonchi. IMPRESSION: 1. Pneumonia with coronavirus disease 2019. 2. Acute respiratory distress syndrome due to that. 3. Anemia of chronic disease. 4. Jltgi-xe-ovbgqmp kidney disease. Creatinine remains elevated at 4.58. 5. Diabetes mellitus. 6. We will follow. Danni Borges MD [facility]/MODL /[id number]
[2019-08-20] MEDS ORDERED: PROPOFOL IV EMULSION 10 MG/ML 50 ML VIAL IV SCH (13:00)
[2019-08-20] MEDS: MIDAZOLAM HCL IV PRN ×2 (14:30→21:15)
[2019-08-20] MEDS: SODIUM CHLORIDE 0.9% IV PRN ×2 (14:30→21:15)
--- NOTE | 2019-08-20 16:51 | Progress Note ---
DATE: SUBJECTIVE: The patient is afebrile. He had dialysis again today and 2 L were removed. He remains on mechanical ventilation. The PEG tube is scheduled for today. PHYSICAL EXAMINATION: VITAL SIGNS: The blood pressure is 122/53. saturation is 97%. He is currently on a PRVC at a rate of 26 with a tidal volume of 400. His FiO2 is set at 75% and PEEP is set at 12. HEENT: No facial swelling or erythema. CARDIAC: Regular rate and rhythm with normal S1, S2. LUNGS: Auscultation of the lungs reveals rhonchorous breath sounds bilaterally. There is no wheezing. ABDOMEN: Soft, nontender. There is no rebound or guarding. EXTREMITIES: No leg edema or calf tenderness. There is no cyanosis or clubbing. SKIN: No rashes. NEUROLOGICAL: No focal abnormalities. The patient is sedated and not responding well on tele. LABORATORY DATA: White blood cell count is 11.3 and hemoglobin 7.5. The platelet count is 244,000. The BUN to creatinine ratio is 46 to 4.58 and the blood sugar is 206. RADIOGRAPHIC DATA: Chest x-ray shows persistent bilateral infiltrates. IMPRESSION: 1. Acute respiratory failure. 2. Acute respiratory distress syndrome. 3. Acute renal failure. 4. Diabetes. 5. Hypertension. PLAN: 1. Await PEG today. 2. Increase respiratory rate to 26 to increase minute ventilation. 3. Decrease FiO2 as tolerated. 4. Continue enteral feedings. 5. Tracheostomy care. Joseph Ch MD [facility]/MODL /[id number]
[2019-08-20] MEDS: INSULIN GLARGINE 100 UNITS/ML VIAL SQ SCH (21:00)
[2019-08-21] VITALS (23 sets, daily range): BP systolic 99–175; BP diastolic 45–84
[2019-08-21] MEDS: METOCLOPRAMIDE HCL 10 MG/2ML VIAL IV SCH ×4 (01:36→18:07)
[2019-08-21] MEDS: PANTOPRAZOL 40MG/SOD CHL 0.9% 50 ML IV SCH ×4 (01:36→19:48)
[2019-08-21 05:54] LABS: MAGNESIUM 1.9 MG/DL (1.3-2.1); PHOSPHORUS 2.5 MG/DL (2.3-4.7)
[2019-08-21 06:03] LABS: BASOPHILS # (AUTO) 0.1 (0.0-0.1); BASOPHILS % 0.5 % (0.0-1.0); EOSINOPHILS # (AUTO) 0.7 (0.0-0.4); EOSINOPHILS % 6.2 % (0.0-6.0); HEMATOCRIT 23.1 % (38.2-49.6); HEMOGLOBIN 7.2 g/dL (14.0-18.0); LYMPHOCYTES # (AUTO) 1.3 (1.0-3.2); LYMPHOCYTES % 11.1 % (18.0-39.1); MEAN CORPUSCULAR HEMOGLOBIN 31.2 pg (28-32); MEAN CORPUSCULAR HGB CONC 31.2 g/dL (31-35); MONOCYTES # (AUTO) 1.1 (0.2-0.8); MONOCYTES % 9.7 % (4.4-11.3); NEUTROPHILS # (AUTO) 7.9 (2.1-6.9); NEUTROPHILS % 70.2 % (38.7-80.0); PLATELET COUNT 214 x10e3/uL (140-360); RED BLOOD COUNT 2.31 x10e6/uL (4.3-5.7); RED CELL DISTRIBUTION WIDTH 14.6 % (11.7-14.4)
[2019-08-21 06:15] LABS: ALBUMIN 2.7 g/dL (3.5-5.0); ALBUMIN/GLOBULIN RATIO 0.8 (0.8-2.0); ANION GAP 7.4 mmol/L (8-16); CALCIUM 8.3 mg/dL (8.4-10.2); CREATININE, SERUM 3.52 mg/dL (0.72-1.25); POTASSIUM 3.4 mmol/L (3.5-5.1)
[2019-08-21] MEDS: SODIUM CHLORIDE 0.9% IV PRN (06:37)
[2019-08-21] MEDS: MIDAZOLAM HCL IV PRN (06:37)
[2019-08-21] MEDS: SUCRALFATE 1 GM/10 ML SUSP NG SCH ×4 (07:30→21:26)
[2019-08-21] MEDS ORDERED: VECURONIUM BROMIDE FOR INJ 20 MG VIAL IV STA (08:33)
[2019-08-21] MEDS: ASPIRIN 81 MG CHEW TAB PO SCH (09:00)
[2019-08-21] MEDS: EYE LUBRICANT OPTH OINT 3.5GM TUBE OP SCH ×3 (09:06→21:18)
[2019-08-21] MEDS: IRON SUCROSE 100 MG in SODIUM CHLORIDE 0.9% 100 ML 100 ML IV SCH (09:06)
[2019-08-21] MEDS: BALSAM PERU/CASTOR OIL 60 GM OINT...G. TP SCH (09:06)
[2019-08-21] MEDS: HEPARIN SOD (PORCINE) 5,000 UNIT/ML VIAL SC SCH ×2 (09:16→21:25)
--- NOTE | 2019-08-21 09:16 | Diagnostic Imaging Report ---
EXAM: CHEST SINGLE (PORTABLE) DATE: 08/21/2019 5:00 AM INDICATION: ARDS COMPARISON: 08/20/2019 FINDINGS: Tracheostomy cannula, right-sided nontunneled dialysis catheter, and left-sided PICC line identified in stable position. Enteric tube no longer visualized. Again identified are bilateral patchy airspace opacities, right greater than left and more prominent within the mid and lower lung zones. There is no evidence for pneumothorax. There is blunting of the costophrenic angles and small effusions are suspected, unchanged from prior examinations. The cardiac mediastinal silhouette is stable in appearance. No acute osseous abnormality is identified. IMPRESSION: No significant interval change from 08/20/2019. Grossly stable appearing patchy airspace opacities again identified bilaterally. Signed by: Dr. Jn Charles MD on 08/21/2019 9:12 AM
[2019-08-21] MEDS: POTASSIUM CHLORIDE 20MEQ/100ML 100 ML IV PRN (09:29)
--- NOTE | 2019-08-21 12:33 | Progress Note ---
DATE: SUBJECTIVE: Mr. Gonsalez remains in intensive care unit on ventilator setting. He is slightly better. OBJECTIVE: VITAL SIGNS: His O2 saturation is 97%. His FiO2 is 75%. His PEEP is 12 and sedated. HEENT: Normocephalic. CHEST: Few crackles. COR: S1, S2. ABDOMEN: Soft. IMPRESSION: 1. Acute respiratory distress syndrome secondary to COVID-19. 2. Renal failure. 3. Status post feeding tube today, percutaneous endoscopic gastrostomy tube placement. PLAN: The plan for him to go to an LTAC eventually. Weaning is very slow. We will follow. Danni Borges MD [facility] /[id number]
--- NOTE | 2019-08-21 13:39 | Progress Note ---
DATE: SUBJECTIVE: The patient is receiving dialysis again today. His FiO2 is down to 65% and he is on 12 of PEEP. PHYSICAL EXAMINATION: VITAL SIGNS: The patient is afebrile. The blood pressure is 122/60 and the saturation is 98%. He is on a PRVC rate of 26 with a tidal volume of 400 and a FiO2 of 65%. His PEEP is set at 12. HEENT: Shows no facial swelling or erythema. The tracheostomy site is clean. There is no drainage. CARDIAC: Reveals a regular rate and rhythm with a normal S1, S2. LUNGS: Auscultation of lungs reveals rhonchorous breath sounds bilaterally. There is no wheezing. ABDOMEN: Soft, nontender. There is no rebound or guarding. EXTREMITIES: Show no leg edema or calf tenderness. There is no cyanosis or clubbing. SKIN: Shows no rashes. The patient remains on sedation with fentanyl and Versed. LABORATORY DATA: White blood cell count is 11.2 and hemoglobin is 7.2. The platelet count is 214. BUN to creatinine ratio is 32 to 3.5. RADIOGRAPHIC DATA: Chest x-ray still shows bilateral infiltrates. IMPRESSION: 1. Acute respiratory failure. 2. Acute renal failure. 3. Diabetes. 4. Hypertension. PLAN: 1. Complete dialysis. 2. Repeat ABG after dialysis and wean ventilator settings as tolerated. 3. Continue enteral feedings. 4. DVT prophylaxis. 5. Continue current sedation. Joseph Ch MD [facility]/MODL /[id number]
[2019-08-21] MEDS: FENTANYL CITRATE INJ 2,000 MCG in SODIUM CHLORIDE 0.9% 250ML 210 ML IV PRN (14:30)
[2019-08-21] MEDS: MIDAZOLAM HCL 50 MG in SODIUM CHLORIDE 0.9% 100 ML 90 ML IV PRN (14:30)
[2019-08-21] MEDS: INSULIN GLARGINE 100 UNITS/ML VIAL SQ SCH (21:00)
[2019-08-22] VITALS (55 sets, daily range): BP systolic 79–163; BP diastolic 4–86
[2019-08-22] MEDS: MIDAZOLAM HCL 50 MG in SODIUM CHLORIDE 0.9% 100 ML 90 ML IV PRN (00:19)
[2019-08-22] MEDS: METOCLOPRAMIDE HCL 10 MG/2ML VIAL IV SCH ×4 (00:27→18:10)
[2019-08-22] MEDS: PANTOPRAZOL 40MG/SOD CHL 0.9% 50 ML IV SCH ×5 (00:37→22:45)
--- NOTE | 2019-08-22 01:56 | Operative Report ---
DATE OF PROCEDURE: 08/20/2019 SURGEON: Karl Aguirre MD PROCEDURE: EGD and PEG tube insertion. INDICATIONS FOR EGD: Respiratory failure, status post tracheostomy on vent, NG tube feeding dependent. For EGD and PEG tube placement. MEDICATIONS: The patient was done under general endotracheal anesthesia. Please see anesthesiologist's note. PROCEDURE IN DETAIL: With the patient in the supine position, a flexible fiberoptic Olympus gastroscope was introduced into the esophagus under direct visualization without any difficulty. There was some patchy erythema noted in distal esophagus. There was some patchy erythema noted in the antrum and the body. Pylorus was of normal contour and shape. It was intubated with ease and the scope was advanced all the way to the second portion of the duodenum. The mucosa overlying the proximal second portion appeared to be within normal limits. Approximately 6 mm ulcer was heaped up. Margins were noted in the duodenal bulb. There was no active bleeding or stigmata of recent hemorrhage. The scope was then withdrawn back into the stomach and retroflexed and the mucosa overlying the fundus and cardia appeared to be within normal limits. The scope was then straightened out and after I repeat, the scope was then straightened out and with transabdominal illumination and external digital palpation, a safe entry point was delineated and a PEG tube insertion was carried out in the usual fashion. The scope was subsequently withdrawn after documenting a good positioning of the intragastric bumper. The patient tolerated the procedure well. IMPRESSION: 1. Distal esophagitis. 2. Gastritis. 3. Duodenal bulb ulcer approximately 6 mm in size with heaped up margins without active bleeding or stigmata of recent hemorrhage. 4. PEG tube insertion, carried out in the usual fashion. The patient tolerated procedure well. PLAN: G-tube to drain to gravity x24 hours, then can use. Karl Aguirre MD [facility] [place]/MODL /[id number] cc: Hai Aguirre MD
[2019-08-22 04:51] LABS: BASOPHILS # (AUTO) 0.1 (0.0-0.1); BASOPHILS % 0.4 % (0.0-1.0); EOSINOPHILS # (AUTO) 0.8 (0.0-0.4); EOSINOPHILS % 6.7 % (0.0-6.0); HEMATOCRIT 25.2 % (38.2-49.6); HEMOGLOBIN 7.6 g/dL (14.0-18.0); LYMPHOCYTES # (AUTO) 1.1 (1.0-3.2); LYMPHOCYTES % 9.3 % (18.0-39.1); MEAN CORPUSCULAR HEMOGLOBIN 30.5 pg (28-32); MEAN CORPUSCULAR HGB CONC 30.2 g/dL (31-35); MEAN CORPUSCULAR VOLUME 101.2 fL (81-99); MONOCYTES # (AUTO) 1.1 (0.2-0.8); MONOCYTES % 8.9 % (4.4-11.3); NEUTROPHILS # (AUTO) 8.6 (2.1-6.9); NEUTROPHILS % 72.9 % (38.7-80.0); PLATELET COUNT 224 x10e3/uL (140-360); RED BLOOD COUNT 2.49 x10e6/uL (4.3-5.7); RED CELL DISTRIBUTION WIDTH 15.1 % (11.7-14.4)
[2019-08-22 05:08] LABS: CALCIUM 8.6 mg/dL (8.4-10.2); CREATININE, SERUM 4.36 mg/dL (0.72-1.25); MAGNESIUM 2.1 MG/DL (1.3-2.1); PHOSPHORUS 3.9 MG/DL (2.3-4.7)
[2019-08-22] MEDS ORDERED: ALBUMIN 25% 25GM 100ML 0.25 GM/ML BTL IV ONE (07:15)
[2019-08-22] MEDS ORDERED: ALBUMIN 25% 25GM 100ML 200 ML IV ONE (07:45)
[2019-08-22] MEDS: FENTANYL CITRATE INJ 2,000 MCG in SODIUM CHLORIDE 0.9% 250ML 210 ML IV PRN ×2 (07:52→16:05)
[2019-08-22 08:05] LABS: ABG PCO2 45 mmHg (35-45); ABG PH 7.29 (7.35-7.45)
[2019-08-22 08:06] LABS: ABG HCO3 22 mmol/L (22-26)
[2019-08-22] MEDS: SUCRALFATE 1 GM/10 ML SUSP NG SCH ×3 (08:32→16:33)
[2019-08-22] MEDS: BALSAM PERU/CASTOR OIL 60 GM OINT...G. TP SCH (08:33)
[2019-08-22] MEDS: ASPIRIN 81 MG CHEW TAB PO SCH (08:33)
[2019-08-22] MEDS: EYE LUBRICANT OPTH OINT 3.5GM TUBE OP SCH ×3 (08:33→21:15)
[2019-08-22] MEDS: IRON SUCROSE 100 MG in SODIUM CHLORIDE 0.9% 100 ML 100 ML IV SCH (08:34)
[2019-08-22] MEDS: HEPARIN SOD (PORCINE) 5,000 UNIT/ML VIAL SC SCH (08:43)
[2019-08-22 12:40] LABS: ABG PH 7.13 (7.35-7.45)
[2019-08-22 12:54] LABS: ABG PCO2 68 mmHg (35-45)
[2019-08-22 12:55] LABS: ABG HCO3 23 mmol/L (22-26)
[2019-08-22] MEDS ORDERED: VECURONIUM BROMIDE FOR INJ 20 MG VIAL ONE (13:29)
[2019-08-22] MEDS ORDERED: VECURONIUM BROMIDE FOR INJ 20 MG VIAL IV STA (13:30)
--- NOTE | 2019-08-22 13:58 | Progress Note ---
DATE: SUBJECTIVE: The patient did well after dialysis yesterday. His FiO2 was decreased to 55% and his PEEP was decreased to 8. Early this morning, he had worsening saturations. His FiO2 was increased back to 75% and his PEEP was increased back to 10. He was hypotensive and required albumin. He also required low-dose pressors briefly. He is now down to 2 mcg of Levophed. The patient received ultrafiltration for 2 hours this morning and is now receiving dialysis again. PHYSICAL EXAMINATION: VITAL SIGNS: The blood pressure is 116/73 and the heart rate is 110. Saturation is 97% with a PRVC of 28 and a tidal volume of 430. His PEEP is set at 10 and his FiO2 is set at 70%. HEENT: No facial swelling or erythema. CARDIAC: Regular rate and rhythm with normal S1, S2. LUNGS: Auscultation of lungs reveals crackles at the bases. There is no wheezing. ABDOMEN: Soft, nontender. There is no rebound or guarding. EXTREMITIES: No leg edema or calf tenderness. There is no cyanosis or clubbing. LABORATORY DATA: BUN to creatinine ratio is 44 to 4.36. The other electrolytes are within normal limits. The blood sugar is 231. White blood cell count is 11.8, hemoglobin is 7.6. The platelet count is 224. IMPRESSION: 1. Transient hypotension, possibly secondary to intravascular volume depletion. 2. Acute respiratory failure. 3. Acute renal failure. 4. Diabetes. 5. Hypertension. PLAN: 1. Wean the patient off Levophed. 2. Complete dialysis. 3. The tidal volume has been increased to 430 in order to correct the respiratory acidosis. 4. Repeat ABG after dialysis. 5. Continue to wean FiO2 and PEEP as tolerated. 6. Discuss need for antibiotics. Antibiotics to be initiated by Infectious Disease. 7. Case discussed with weight shifter nursing, dayshift nursing, dialysis nurse, Respiratory, Internal Medicine, Nephrology, and Infectious Disease. Greater than 35 minutes in direct critical care time. Joseph Ch MD [facility]/MODL /[id number]
[2019-08-22] MEDS ORDERED: SODIUM CHLORIDE 0.9% 250ML 250 ML IV PRN (15:00)
[2019-08-22] MEDS: MEROPENEM 1GM 100 ML IV SCH (16:34)
--- NOTE | 2019-08-22 16:38 | Progress Note ---
DATE: SUBJECTIVE: Mr. Gonsalez remains in intensive care unit and intubated. He is a bit hypotensive today and vasopressors have to be started today, but there is no fever. He had dialysis. His FiO2 was 55% . He is slowly improving. PHYSICAL EXAMINATION: GENERAL: He is intubated and sedated. HEENT: Not icteric. CHEST: Few crackles. COR: S1, S2. No murmur. ABDOMEN: Soft. IMPRESSION: 1. Hypotension transient, sepsis. We will get a blood culture. Put him back on vancomycin and meropenem. 2. Concern about aspiration. 3. COVID-19 with acute respiratory distress syndrome. 4. Renal failure. 5. Respiratory failure. PLAN: Continue with supportive care as ordered. Discussed with medical team at length. MD SHANNAN Jaramillo/MODKirti /[id number]
[2019-08-22] MEDS: VANCOMYCIN 750MG/NS 150ML IVPB 150 ML IV SCH (18:10)
[2019-08-23] VITALS (68 sets, daily range): BP systolic 82–159; BP diastolic 37–94
[2019-08-23] MEDS: FENTANYL CITRATE INJ 2,000 MCG in SODIUM CHLORIDE 0.9% 250ML 210 ML IV PRN ×3 (00:10→15:23)
[2019-08-23] MEDS: INSULIN REGULAR, HUMAN 3ML VL 100 UNIT in SODIUM CHLORIDE 0.9% 100 ML IV SCH ×2 (00:30)
[2019-08-23] MEDS: INSULIN GLARGINE 100 UNITS/ML VIAL SQ SCH ×2 (00:38→22:05)
[2019-08-23] MEDS: METOCLOPRAMIDE HCL 10 MG/2ML VIAL IV SCH ×5 (00:38→23:30)
[2019-08-23] MEDS: SUCRALFATE 1 GM/10 ML SUSP NG SCH ×5 (00:38→22:05)
[2019-08-23] MEDS: HEPARIN SOD (PORCINE) 5,000 UNIT/ML VIAL SC SCH ×3 (00:38→23:30)
[2019-08-23] MEDS: PANTOPRAZOL 40MG/SOD CHL 0.9% 50 ML IV SCH ×5 (00:45→19:31)
[2019-08-23] MEDS: NOREPINEPHRINE 8 MG/D5W 250 ML 250 ML IV PRN (02:15)
[2019-08-23] MEDS: MIDAZOLAM HCL 50 MG in SODIUM CHLORIDE 0.9% 100 ML 90 ML IV PRN ×3 (04:55→19:15)
[2019-08-23 06:14] LABS: ABG PCO2 67 mmHg (35-45); ABG PH 7.26 (7.35-7.45)
[2019-08-23 06:15] LABS: ABG HCO3 30 mmol/L (22-26)
[2019-08-23 06:57] LABS: BASOPHILS # (AUTO) 0.1 (0.0-0.1); BASOPHILS % 0.5 % (0.0-1.0); EOSINOPHILS # (AUTO) 1.1 (0.0-0.4); EOSINOPHILS % 8.4 % (0.0-6.0); HEMATOCRIT 25.7 % (38.2-49.6); HEMOGLOBIN 8.2 g/dL (14.0-18.0); LYMPHOCYTES # (AUTO) 1.3 (1.0-3.2); LYMPHOCYTES % 10.2 % (18.0-39.1); MEAN CORPUSCULAR HEMOGLOBIN 30.4 pg (28-32); MEAN CORPUSCULAR HGB CONC 31.9 g/dL (31-35); MEAN CORPUSCULAR VOLUME 95.2 fL (81-99); MONOCYTES % 8.3 % (4.4-11.3); NEUTROPHILS # (AUTO) 8.9 (2.1-6.9); NEUTROPHILS % 71.2 % (38.7-80.0); PLATELET COUNT 241 x10e3/uL (140-360); RED CELL DISTRIBUTION WIDTH 18.1 % (11.7-14.4)
[2019-08-23 07:17] LABS: ALBUMIN 3.2 g/dL (3.5-5.0); ALBUMIN/GLOBULIN RATIO 0.9 (0.8-2.0); ANION GAP 10.6 mmol/L (8-16); CALCIUM 8.9 mg/dL (8.4-10.2); CREATININE, SERUM 3.74 mg/dL (0.72-1.25); POTASSIUM 3.6 mmol/L (3.5-5.1)
[2019-08-23 07:30] LABS: MAGNESIUM 2.2 MG/DL (1.3-2.1); PHOSPHORUS 2.5 MG/DL (2.3-4.7)
--- NOTE | 2019-08-23 07:37 | Diagnostic Imaging Report ---
EXAMINATION: CHEST SINGLE (PORTABLE) INDICATION: Respiratory failure. COMPARISON: Chest radiograph 08/21/2019. FINDINGS: LINES/TUBES: Tracheostomy in unchanged position. Right IJ non-tunneled hemodialysis catheter terminates in the mid SVC. Right arm PICC terminates in the SVC. Overlying EKG leads. LUNGS:The lungs are moderately inflated. There is perihilar fullness and indistinctness of the pulmonary vasculature with bilateral mid and lower lung zone opacities, slightly decreased in the right lung. PLEURA:Small bilateral pleural effusions. No pneumothorax. MEDIASTINUM:The cardiomediastinal silhouette appears unchanged in size and shape. BONES/SOFT TISSUES:No acute osseous injury. ABDOMEN:No free air under the diaphragm. IMPRESSION: Bilateral opacities, slightly decreased in the right lung, which may represent multifocal pneumonia with superimposed pulmonary edema. Small bilateral pleural effusions. Lines and tubes unchanged. Signed by: Dr. Lamar Perla MD on 08/23/2019 7:33 AM
[2019-08-23 07:48] LABS: INR 1.07; PROTHROMBIN TIME 14.6 seconds (11.9-14.5)
[2019-08-23 07:49] LABS: PARTIAL THROMBOPLASTIN TIME 46.3 seconds (23.8-35.5)
[2019-08-23] MEDS: EYE LUBRICANT OPTH OINT 3.5GM TUBE OP SCH ×3 (08:06→21:00)
[2019-08-23] MEDS: BALSAM PERU/CASTOR OIL 60 GM OINT...G. TP SCH (08:18)
[2019-08-23 08:19] LABS: ABG PH 7.22 (7.35-7.45)
[2019-08-23 08:20] LABS: ABG HCO3 35 mmol/L (21-29); ABG PCO2 88 mmHg (35-45)
[2019-08-23 08:21] LABS: ABG OXYGEN SATURATION 89.4 % (96-97)
[2019-08-23] MEDS ORDERED: VECURONIUM BROMIDE FOR INJ 20 MG VIAL IV NR (08:38)
[2019-08-23] MEDS: IRON SUCROSE 100 MG in SODIUM CHLORIDE 0.9% 100 ML 100 ML IV SCH (09:21)
--- NOTE | 2019-08-23 09:56 | Progress Note ---
DATE: SUBJECTIVE: The patient was restarted on antibiotics yesterday by Infectious Disease. The patient received dialysis and ultrafiltration again and the FiO2 is decreased to 60%. The patient had some borderline hypotension and required low dose Levophed early this morning. The patient remains on Versed and fentanyl. PHYSICAL EXAMINATION: VITAL SIGNS: The patient is afebrile. The blood pressure is 119/70, saturation is 92% on FiO2 of 60 and a PEEP of 10. Tidal volume is set at 410 with a respiratory rate of 28. HEENT: No facial swelling or erythema. There is a tracheostomy site in good position. There is a right IJ line with a dialysis port. There is a PICC line in place. Older PICC line was removed yesterday. CARDIAC: Reveals regular rate and rhythm with normal S1 and S2. LUNGS: Auscultation of the lungs shows decreased breath sounds at the bases. There is no wheezing. ABDOMEN: Soft, nontender. There is no rebound or guarding. Extremities: 1+ leg edema. LABORATORY DATA: White blood cell count is 12.5 and hemoglobin is 8.2. The platelet count is 241. BUN to creatinine ratio is 39 to 3.74. Other electrolytes are within normal limits. His blood gas is 7.26 with CO2 of 67, O2 of 73 and a bicarb of 30. RADIOGRAPHIC DATA: Chest x-ray shows possible improvement in the infiltrates. IMPRESSION: 1. Acute respiratory failure. 2. Acute renal failure. 3. Diabetes. 4. Leukocytosis. 5. Hypertension. PLAN: 1. Repeat ABG and adjust minute ventilation as required. 2. Continue to titrate PEEP and FiO2 as tolerated. 3. Dialysis again today. 4. Continue current antibiotics. 5. Wound care. 6. Albumin x1 in order to wean off Levophed. 7. Case discussed with oxidation operator nursing, day shift nursing, Respiratory, Internal Medicine and Infectious Disease. Greater than 35 minutes in direct critical care time. Joseph Ch MD [facility]/MODL /[id number]
--- NOTE | 2019-08-23 10:55 | Progress Note ---
DATE: CHIEF COMPLAINT/HISTORY OF PRESENT ILLNESS: This is a 48-year-old white man, whose primary treating diagnosis is acute respiratory failure secondary to bilateral COVID pneumonia. The patient's last 2 COVID-19 tests have returned negative. The patient unfortunately has suffered acute renal failure secondary to acute tubular necrosis that is necessitating hemodialysis. The patient is being dialyzed every day. The plan was to transfer the patient to a local long-term acute care facility yesterday, but unfortunately the transfer was held due to hypotension and severe anemia. The patient was transfused 1 unit of packed red cells. The patient was started on intravenous norepinephrine overnight because of hypotension, but is currently off this prior to this vasopressor at this time. Blood work today revealed white blood cell count 12,400 with 71% segmented neutrophils. Hemoglobin is 9.2 g/dL. The patient's BUN and creatinine 39 and 3.74 respectively. Potassium 3.6. The patient underwent chest x-ray today on August 23, 2019, which revealed bilateral opacities, slightly decreased in right lung. Also, revealed small bilateral pleural effusions. REVIEW OF SYSTEMS: As per HPI. PHYSICAL EXAMINATION: GENERAL: He is sedated with fentanyl and Versed. He is on a ventilator via tracheostomy tube. VITAL SIGNS: Blood pressure 91/46, pulse 110, respiratory rate 28, oxygen saturation 90%, FiO2 is 90%. His BMI 31, temperature 98.8. INTEGUMENT: Skin is warm and dry. Obvious pallor. No jaundice or diaphoresis. HEENT: Anicteric sclerae. Moist mucous membranes. NECK: Supple. The patient has a tracheostomy tube in place, connected to ventilator. CARDIOVASCULAR: Tachycardic rate, regular. The patient has S3 gallop. LUNGS: The patient has crackles bilaterally. ABDOMEN: Benign. EXTREMITIES: No edema or deformity. NEURO: Intact. DIAGNOSES: 1. Acute hypoxic respiratory failure secondary to bilateral COVID pneumonia. 2. COVID-19 infection, resolved. 3. Bilateral pneumonia. 4. Acute on chronic diastolic heart failure. 5. Coronary artery disease. 6. Anemia secondary to chronic kidney disease. PLAN: 1. Continue intravenous vasopressors as needed. 2. Continue vancomycin, meropenem facial pneumonia. 3. Respiratory care. 4. Continue ventilator support. 5. Once patient is stabilized clinically, he will likely be transferred to a long-term care facility. 6. Overall guarded prognosis. I spent 30 minutes in the care of this intensive care unit patient. MD LORIE Herbert/JAGDISH /[id number] MTDIrene
[2019-08-23] MEDS ORDERED: MIDAZOLAM HCL 25 MG in SODIUM CHLORIDE 0.9% 45 ML IV PRN (11:00)
[2019-08-23] MEDS: MEROPENEM 1GM 100 ML IV SCH (16:39)
[2019-08-23] MEDS: VANCOMYCIN 750MG/NS 150ML IVPB 150 ML IV SCH (17:49)
[2019-08-23] MEDS: EPOETIN ALFA-EPBX 10,000 UNIT/ML VIAL SC SCH (18:38)
[2019-08-24] VITALS (54 sets, daily range): BP systolic 72–182; BP diastolic 37–86
[2019-08-24] MEDS: PANTOPRAZOL 40MG/SOD CHL 0.9% 50 ML IV SCH ×5 (00:50→21:45)
[2019-08-24] MEDS: MIDAZOLAM HCL 50 MG in SODIUM CHLORIDE 0.9% 100 ML 90 ML IV PRN ×4 (02:00→16:37)
[2019-08-24 05:46] LABS: BASOPHILS # (AUTO) 0.1 (0.0-0.1); BASOPHILS % 0.5 % (0.0-1.0); EOSINOPHILS # (AUTO) 1.9 (0.0-0.4); EOSINOPHILS % 14.3 % (0.0-6.0); HEMATOCRIT 26.4 % (38.2-49.6); HEMOGLOBIN 8.2 g/dL (14.0-18.0); LYMPHOCYTES # (AUTO) 1.3 (1.0-3.2); LYMPHOCYTES % 9.8 % (18.0-39.1); MEAN CORPUSCULAR HEMOGLOBIN 30.3 pg (28-32); MEAN CORPUSCULAR HGB CONC 31.1 g/dL (31-35); MEAN CORPUSCULAR VOLUME 97.4 fL (81-99); NEUTROPHILS # (AUTO) 8.6 (2.1-6.9); PLATELET COUNT 215 x10e3/uL (140-360); RED BLOOD COUNT 2.71 x10e6/uL (4.3-5.7); RED CELL DISTRIBUTION WIDTH 17.9 % (11.7-14.4)
[2019-08-24 06:02] LABS: ALBUMIN/GLOBULIN RATIO 0.8 (0.8-2.0); ANION GAP 10.8 mmol/L (8-16); CALCIUM 8.7 mg/dL (8.4-10.2); CREATININE, SERUM 4.29 mg/dL (0.72-1.25); POTASSIUM 3.8 mmol/L (3.5-5.1)
[2019-08-24 06:15] LABS: ANION GAP 11.8 mmol/L (8-16); CALCIUM 8.7 mg/dL (8.4-10.2); CREATININE, SERUM 4.31 mg/dL (0.72-1.25); MAGNESIUM 2.2 MG/DL (1.3-2.1); POTASSIUM 3.8 mmol/L (3.5-5.1)
[2019-08-24] MEDS: FENTANYL CITRATE INJ 2,000 MCG in SODIUM CHLORIDE 0.9% 250ML 210 ML IV PRN ×2 (06:15→16:00)
[2019-08-24 06:26] LABS: ABG PCO2 56 mmHg (35-45); ABG PH 7.31 (7.35-7.45)
[2019-08-24 06:27] LABS: ABG HCO3 28 mmol/L (22-26)
[2019-08-24] MEDS: METOCLOPRAMIDE HCL 10 MG/2ML VIAL IV SCH ×3 (06:45→16:30)
[2019-08-24] MEDS: SUCRALFATE 1 GM/10 ML SUSP NG SCH ×4 (07:53→22:25)
--- NOTE | 2019-08-24 08:41 | Diagnostic Imaging Report ---
EXAMINATION: CHEST SINGLE (PORTABLE) INDICATION: Pneumonia. Pulmonary edema. COMPARISON: Chest radiograph 08/23/2019. FINDINGS: LINES/TUBES: Stable tubes and lines: Tracheostomy in unchanged position. Right IJ non-tunneled hemodialysis catheter terminates in the mid SVC or cavoatrial junction.. Right arm PICC terminates in the SVC. LUNGS:The lungs are moderately inflated. There is predominantly perihilar patchy airspace disease with mild prominence of the of the pulmonary vasculature with bilateral mid and lower lung zone opacities, slightly decreased in the right lung. PLEURA:Small bilateral pleural effusions. No pneumothorax. MEDIASTINUM:The cardiomediastinal silhouette appears unchanged in size and shape. BONES/SOFT TISSUES:No acute osseous injury. ABDOMEN:No free air under the diaphragm. IMPRESSION: No significant interval change in appearance of the lungs suggesting edema with possible superimposed infection the proper clinical setting.. Small bilateral pleural effusions. Lines and tubes are unchanged in position. Signed by: Dr. Jaylin Good M.D. on 08/24/2019 8:38 AM
[2019-08-24] MEDS: EYE LUBRICANT OPTH OINT 3.5GM TUBE OP SCH ×3 (09:16→21:00)
[2019-08-24] MEDS: BALSAM PERU/CASTOR OIL 60 GM OINT...G. TP SCH (09:16)
--- NOTE | 2019-08-24 09:23 | Progress Note ---
DATE: 08/24/2019 CHIEF COMPLAINT/HISTORY OF PRESENT ILLNESS: This is a 48-year-old white man, whose primary treating diagnosis acute respiratory failure secondary to bilateral COVID pneumonia. The patient apparently was started on intravenous norepinephrine overnight because of hypotension. The patient was to be transferred to a local long-term acute care facility namely [facility] in [place], [place] on Thursday August 22, 2019, but transfer was held due to hypotension and clinical instability. The patient was also dialyzed yesterday. The patient has been dialyzed daily for the last 12 days. Today's BUN and creatinine are 47 and 4.29 respectively. Potassium 3.8. The patient's B-type natriuretic peptide level is 993. The patient's white blood cell count 12,900, with 66% segmenters. Hemoglobin is 8.2 g/dL. REVIEW OF SYSTEMS: As per HPI. PHYSICAL EXAMINATION: GENERAL: He is sedated on a ventilator. He is on AC mode. VITAL SIGNS: FiO2 70%, oxygen saturation is 95%, temperature 97.8, respiratory rate 28, blood pressure 128/60 at this time. PEEP is 10. His BMI 31. INTEGUMENT: Skin is warm and dry. No pallor, jaundice, or diaphoresis. HEENT: Anicteric sclerae. Moist mucous membranes. NECK: Supple with a tracheostomy tube in place connected to ventilator. CARDIOVASCULAR: Distant heart sounds. Tachycardic rate with regular rhythm. The patient has an S3 gallop. LUNGS: The patient has diminished crackles in upper lung salas. Diminished breath sounds at bases. ABDOMEN: Benign. EXTREMITIES: No deformity. NEUROLOGIC: Intact except he sedated on the ventilator via tracheostomy tube. DIAGNOSES: 1. Acute hypoxic respiratory failure secondary to bilateral COVID pneumonia. 2. COVID-19 infection, resolved. 3. Bilateral pneumonia. 4. Bilateral pneumonia likely Gram-negative keeley. 5. Acute on chronic diastolic congestive heart failure. 6. Coronary artery disease. 7. Anemia secondary to chronic kidney disease/chronic disease. PLAN: 1. Continue intravenous vasopressors as needed. 2. Continue vancomycin and meropenem for the patient's pneumonia. 3. Continue respiratory care. 4. Continue ventilator support. 5. Once the patient is stabilized clinically, particularly with his blood pressure, he will likely be transferred to a long-term acute care facility. 6. Overall guarded prognosis. I spent 25 minutes in the care of this patient. MD LORIE Herbert/JAGDISH /[id number] MTDIrene
[2019-08-24] MEDS: HEPARIN SOD (PORCINE) 5,000 UNIT/ML VIAL SC SCH ×2 (09:27→22:25)
[2019-08-24] MEDS: IRON SUCROSE 100 MG in SODIUM CHLORIDE 0.9% 100 ML 100 ML IV SCH (09:28)
--- NOTE | 2019-08-24 10:49 | Progress Note ---
DATE: SUBJECTIVE: The patient is now on 60% FiO2 with a PEEP of 10. His saturation is 96%. The patient is status post dialysis yesterday and is scheduled to receive dialysis again today. He is not febrile. He remains on Versed at 10 as well as a fentanyl drip. PHYSICAL EXAMINATION: VITAL SIGNS: The blood pressure is 115/56. Saturation is 96% on 60%. He is on 10 of PEEP. HEENT: Shows no facial swelling or erythema. He has a tracheostomy tube in place. The site looks clean. There is a right IJ. Site is clean. CARDIAC: Reveals a regular rate and rhythm with a normal S1 and S2. There are no murmurs or rubs. LUNGS: Auscultation of lungs reveals rhonchorous breath sounds bilaterally. There is no wheezing. ABDOMEN: Soft, nontender. There is no rebound or guarding. EXTREMITIES: Show no leg edema or calf tenderness. There is no cyanosis or clubbing. SKIN: Shows no rashes. NEUROLOGICAL: Shows the patient to be sedated. LABORATORY DATA: BUN to creatinine ratio is 47 to 4.39 and the other electrolytes are within normal limits. White blood cell count is 13 and hemoglobin is 8.2. The platelet count is 215. RADIOGRAPHIC DATA: Chest x-ray shows continued bilateral infiltrates. IMPRESSION: 1. Acute respiratory failure. 2. COVID-19 infection. 3. Acute renal failure. 4. Diabetes. 5. Hypertension. PLAN: 1. The patient is scheduled for dialysis and ultrafiltration again today. 2. Wean Versed and fentanyl as tolerated. 3. Possible attempted spontaneous breathing trial today after dialysis. 4. Wound care. 5. Continue to monitor renal function and urine output. 6. Complete antibiotics. 7. Case discussed with nursing staff, Respiratory, Internal Medicine, administration, and Nephrology. Greater than 35 minutes in direct critical care time. Joseph Ch MD [facility]/MODL /[id number]
[2019-08-24] MEDS: MEROPENEM 1GM 100 ML IV SCH (16:30)
[2019-08-24] MEDS: VANCOMYCIN 750MG/NS 150ML IVPB 150 ML IV SCH (18:24)
[2019-08-24] MEDS: INSULIN GLARGINE 100 UNITS/ML VIAL SQ SCH (22:25)
[2019-08-24] MEDS: INSULIN REGULAR, HUMAN 3ML VL 100 UNIT in SODIUM CHLORIDE 0.9% 100 ML IV SCH ×2 (23:45)
[2019-08-25] VITALS (25 sets, daily range): BP systolic 72–179; BP diastolic 42–80
[2019-08-25] MEDS: PANTOPRAZOL 40MG/SOD CHL 0.9% 50 ML IV SCH ×5 (00:27→20:21)
[2019-08-25] MEDS: METOCLOPRAMIDE HCL 10 MG/2ML VIAL IV SCH ×4 (01:23→17:23)
[2019-08-25] MEDS: MIDAZOLAM HCL 50 MG in SODIUM CHLORIDE 0.9% 100 ML 90 ML IV PRN ×3 (05:00→20:23)
[2019-08-25] MEDS: FENTANYL CITRATE INJ 2,000 MCG in SODIUM CHLORIDE 0.9% 250ML 210 ML IV PRN ×2 (05:00→18:51)
[2019-08-25 05:33] LABS: BASOPHILS % 0.3 % (0.0-1.0); EOSINOPHILS # (AUTO) 1.4 (0.0-0.4); EOSINOPHILS % 10.2 % (0.0-6.0); HEMATOCRIT 26.5 % (38.2-49.6); HEMOGLOBIN 8.3 g/dL (14.0-18.0); LYMPHOCYTES # (AUTO) 0.8 (1.0-3.2); LYMPHOCYTES % 6.1 % (18.0-39.1); MEAN CORPUSCULAR HEMOGLOBIN 30.4 pg (28-32); MEAN CORPUSCULAR HGB CONC 31.3 g/dL (31-35); MEAN CORPUSCULAR VOLUME 97.1 fL (81-99); MONOCYTES # (AUTO) 0.9 (0.2-0.8); MONOCYTES % 6.8 % (4.4-11.3); NEUTROPHILS # (AUTO) 10.2 (2.1-6.9); NEUTROPHILS % 75.4 % (38.7-80.0); PLATELET COUNT 209 x10e3/uL (140-360); RED BLOOD COUNT 2.73 x10e6/uL (4.3-5.7); RED CELL DISTRIBUTION WIDTH 17.7 % (11.7-14.4)
[2019-08-25 05:56] LABS: ALBUMIN/GLOBULIN RATIO 0.8 (0.8-2.0); ALKALINE PHOSPHATASE 82 IU/L (40-150); ANION GAP 12.2 mmol/L (8-16); BLOOD UREA NITROGEN 62 mg/dL (7-26); BUN/CREATININE RATIO 13 (6-25); CARBON DIOXIDE 26 mmol/L (22-29); CHLORIDE 105 mmol/L (98-107); CREATININE, SERUM 4.66 mg/dL (0.72-1.25); EST GLOMERULAR FILTRATION RATE 13 ML/MIN (60-); GLUCOSE 193 mg/dL (74-118); POTASSIUM 4.2 mmol/L (3.5-5.1); SODIUM 139 mmol/L (136-145)
[2019-08-25 05:58] LABS: ALANINE AMINOTRANSFERASE < 6 IU/L (0-55)
[2019-08-25 06:10] LABS: MAGNESIUM 2.3 MG/DL (1.3-2.1); PHOSPHORUS 3.6 MG/DL (2.3-4.7)
[2019-08-25] MEDS: NOREPINEPHRINE 8 MG/D5W 250 ML 250 ML IV PRN (06:15)
[2019-08-25 08:07] LABS: ABG HCO3 27 mmol/L (22-26); ABG PCO2 60 mmHg (35-45); ABG PH 7.26 (7.35-7.45)
[2019-08-25] MEDS: EYE LUBRICANT OPTH OINT 3.5GM TUBE OP SCH ×3 (08:19→20:21)
[2019-08-25] MEDS: SUCRALFATE 1 GM/10 ML SUSP NG SCH ×4 (08:19→20:21)
--- NOTE | 2019-08-25 08:47 | Progress Note ---
DATE: SUBJECTIVE: The patient is on 55% oxygen and 10 of PEEP. He is starting dialysis. He had to be placed on Levophed at 5 mcg yesterday. Sedation was held for several hours last night. He did wake up, did not follow commands. He is back on Versed at 6 mg an hour as well as fentanyl at 125 this morning. PHYSICAL EXAMINATION: VITAL SIGNS: The blood pressure is now 118/52, on 5 mcg of Levophed. The patient is afebrile. Pulse is 104. HEENT: Shows no facial swelling or erythema. Tracheostomy site looks clean. There is a right IJ line in place. CARDIAC: Reveals regular rate and rhythm with normal S1, S2. LUNGS: Auscultation of lungs revealed rhonchorous breath sounds bilaterally. There is no wheezing. ABDOMEN: Soft, nontender. There is no rebound or guarding. EXTREMITIES: Show no leg edema or calf tenderness. There is no cyanosis or clubbing. SKIN: Shows no rashes. NEUROLOGIC: Shows no focal abnormalities. The patient is sedated. LABORATORY DATA: White blood cell count is 13.5, hemoglobin is 8.3, and platelet count is 209. The BUN to creatinine ratio is 62-4.66 and the other electrolytes are within normal limits. Albumin is 3. IMPRESSION: 1. Acute respiratory failure. 2. Acute renal failure. 3. COVID-19 infection. 4. Hypertension. 5. Diabetes. 6. Anemia, unspecified. PLAN: 1. Complete dialysis today. 2. Continue to wean FiO2 and PEEP as tolerated. 3. Continue to wean sedation. 4. Monitor blood counts. 5. Monitor renal function. 6. Continue to monitor and control blood sugars. 7. Wean off Levophed. 8. Case discussed with nightshift nursing, dayshift nursing, Respiratory, Infectious Disease, and administration. Greater than 35 minutes in direct critical care time. MD RITA Moscoso/JAGDISH /[id number]
[2019-08-25] MEDS: BALSAM PERU/CASTOR OIL 60 GM OINT...G. TP SCH (09:08)
[2019-08-25] MEDS: IRON SUCROSE 100 MG in SODIUM CHLORIDE 0.9% 100 ML 100 ML IV SCH (09:08)
[2019-08-25] MEDS: HEPARIN SOD (PORCINE) 5,000 UNIT/ML VIAL SC SCH (09:19)
--- NOTE | 2019-08-25 10:16 | Diagnostic Imaging Report ---
EXAMINATION: CHEST SINGLE (PORTABLE) INDICATION: Pneumonia COMPARISON: Chest radiograph 08/24/2019 FINDINGS: LINES/TUBES:Tracheostomy tube unchanged. Right IJ temporary dialysis catheter unchanged. Right PICC line unchanged. EKG leads overlie the chest. LUNGS:Unchanged bilateral airspace and interstitial opacities. PLEURA:No pleural effusion or pneumothorax. MEDIASTINUM:The cardiomediastinal silhouette appears normal in size and shape. BONES/SOFT TISSUES:No acute osseous injury. ABDOMEN:No free air under the diaphragm. IMPRESSION: Unchanged bilateral airspace and interstitial opacities consistent with known multifocal pneumonia/ARDS. Signed by: Frantz Singer MD on 08/25/2019 10:12 AM
[2019-08-25 14:08] LABS: ABG PCO2 69 mmHg (35-45); ABG PH 7.35 (7.35-7.45)
[2019-08-25 14:09] LABS: ABG BASE EXCESS 8.6 mmol/L (-2 - 3); ABG HCO3 37 mmol/L (22-26)
[2019-08-25 14:37] LABS: ABG HCO3 11 mmol/L (22-26); ABG PCO2 28 mmHg (35-45); ABG PH 7.19 (7.35-7.45)
[2019-08-25] MEDS ORDERED: BISACODYL 10 MG SUPP PR ONE (15:00)
[2019-08-25] MEDS: MEROPENEM 1GM 100 ML IV SCH (16:51)
[2019-08-25] MEDS: MIDODRINE 2.5 MG TAB PO SCH (16:51)
[2019-08-25] MEDS: VANCOMYCIN 750MG/NS 150ML IVPB 150 ML IV SCH (17:23)
[2019-08-25] MEDS ORDERED: ENOXAPARIN SOD INJ 60 MG/0.6 ML SYR SC SCH (17:30)
--- NOTE | 2019-08-25 18:23 | Progress Note ---
DATE: SUBJECTIVE: Mr. Gonsalez remains in intensive care unit and intubated. OBJECTIVE: VITAL SIGNS: Remained stable and afebrile. He is on vasopressors and Levophed 5 mcg. His FiO2 is 55% with PEEP of 10, on dialysis. PHYSICAL EXAMINATION: GENERAL: He is intubated, sedated with trach. HEENT: Not icteric. NECK: Supple. CHEST: Few crackles bilateral. COR: S1 and S2. No S3, S4, or murmurs. ABDOMEN: Soft. Bowel sounds present. EXTREMITIES: No edema. IMPRESSION: 1. Acute respiratory distress syndrome secondary to COVID-19. 2. Acute renal failure, slow progress, shocky. Concerned about aspiration pneumonia, currently on vancomycin and meropenem. We will plan to continue for 8 days. Recheck cultures are negative. We will reassess in the morning. MD SHANNAN Jaramillo/JAGIDSH /[id number]
[2019-08-25] MEDS: INSULIN GLARGINE 100 UNITS/ML VIAL SQ SCH (20:22)
[2019-08-26] VITALS (24 sets, daily range): BP systolic 92–131; BP diastolic 47–82
[2019-08-26] MEDS: METOCLOPRAMIDE HCL 10 MG/2ML VIAL IV SCH ×5 (00:12→23:19)
[2019-08-26] MEDS ORDERED: MAGNESIUM HYDROXIDE 30 ML UDC PO PRN ×2 (01:45→09:00)
[2019-08-26] MEDS: MIDAZOLAM HCL 50 MG in SODIUM CHLORIDE 0.9% 100 ML 90 ML IV PRN ×3 (03:30→21:00)
[2019-08-26] MEDS: PANTOPRAZOL 40MG/SOD CHL 0.9% 50 ML IV SCH ×5 (04:12→23:19)
[2019-08-26 05:17] LABS: BASOPHILS % 0.3 % (0.0-1.0); EOSINOPHILS # (AUTO) 1.1 (0.0-0.4); EOSINOPHILS % 8.4 % (0.0-6.0); HEMATOCRIT 25.5 % (38.2-49.6); LYMPHOCYTES # (AUTO) 1.2 (1.0-3.2); LYMPHOCYTES % 8.8 % (18.0-39.1); MEAN CORPUSCULAR HEMOGLOBIN 30.5 pg (28-32); MEAN CORPUSCULAR HGB CONC 30.6 g/dL (31-35); MEAN CORPUSCULAR VOLUME 99.6 fL (81-99); MONOCYTES % 7.7 % (4.4-11.3); NEUTROPHILS # (AUTO) 9.7 (2.1-6.9); NEUTROPHILS % 74.1 % (38.7-80.0); PLATELET COUNT 203 x10e3/uL (140-360); RED BLOOD COUNT 2.56 x10e6/uL (4.3-5.7); RED CELL DISTRIBUTION WIDTH 17.8 % (11.7-14.4)
[2019-08-26 05:33] LABS: ANION GAP 8.2 mmol/L (8-16); CALCIUM 8.7 mg/dL (8.4-10.2); CREATININE, SERUM 3.41 mg/dL (0.72-1.25); MAGNESIUM 2.3 MG/DL (1.3-2.1); PHOSPHORUS 2.6 MG/DL (2.3-4.7); POTASSIUM 4.2 mmol/L (3.5-5.1)
[2019-08-26 05:42] LABS: HEMOGLOBIN 7.8 g/dL (14.0-18.0)
--- NOTE | 2019-08-26 05:56 | Diagnostic Imaging Report ---
EXAMINATION: CHEST SINGLE (PORTABLE) INDICATION: Pneumonia, pulmonary edema. COMPARISON: Chest radiograph 08/25/2019 FINDINGS: LINES/TUBES:Tracheostomy tube unchanged. Right IJ temporary dialysis catheter unchanged. Right PICC line unchanged. EKG leads overlie the chest. LUNGS:Slightly improved bilateral airspace and interstitial opacities. PLEURA:Small right pleural effusion. No pneumothorax. MEDIASTINUM:The cardiomediastinal silhouette appears normal in size and shape. BONES/SOFT TISSUES:No acute osseous abnormality. ABDOMEN:No free air under the diaphragm. IMPRESSION: Slightly improved bilateral airspace and interstitial opacities, which may represent a combination of multifocal pneumonia and pulmonary edema. Signed by: Dr. Lamar Perla MD on 08/26/2019 5:53 AM
[2019-08-26] MEDS: FENTANYL CITRATE INJ 2,000 MCG in SODIUM CHLORIDE 0.9% 250ML 210 ML IV PRN ×2 (05:58→18:43)
[2019-08-26] MEDS ORDERED: SODIUM CHLORIDE 0.9% 100 ML ONE (06:22)
[2019-08-26 08:03] LABS: ABG HCO3 28 mmol/L (22-26); ABG PCO2 54 mmHg (35-45); ABG PH 7.33 (7.35-7.45)
[2019-08-26] MEDS: BALSAM PERU/CASTOR OIL 60 GM OINT...G. TP SCH (08:08)
[2019-08-26] MEDS: SUCRALFATE 1 GM/10 ML SUSP NG SCH ×4 (08:08→20:54)
[2019-08-26] MEDS: MIDODRINE 2.5 MG TAB PO SCH ×2 (08:08→17:02)
[2019-08-26] MEDS: IRON SUCROSE 100 MG in SODIUM CHLORIDE 0.9% 100 ML 100 ML IV SCH (08:08)
[2019-08-26] MEDS: EYE LUBRICANT OPTH OINT 3.5GM TUBE OP SCH ×3 (08:08→20:48)
--- NOTE | 2019-08-26 08:25 | Progress Note ---
DATE: SUBJECTIVE: The patient was weaned off Levophed overnight. He remains on Versed 6 mg an hour and fentanyl at 150 an hour. He is currently on 60% with 10 of PEEP. His tidal volume is set at 420, and he has a set respiratory rate of 22. PHYSICAL EXAMINATION: VITAL SIGNS: Blood pressure is 99/56, saturation is 99%, and pulse is 107. HEENT: Shows no facial swelling or erythema. There is a right IJ dialysis line. There is a PICC line in place. There is a tracheostomy. The site looks clean. CARDIAC: Reveals a regular rate and rhythm with a normal S1 and S2. LUNGS: Auscultation of lungs reveals rhonchorous breath sounds bilaterally. There is no wheezing. ABDOMEN: Soft, nontender. There is no rebound or guarding. EXTREMITIES: Show no leg edema or calf tenderness. There is no cyanosis or clubbing. SKIN: Shows no rashes. NEUROLOGIC: The patient to be sedated. LABORATORY DATA: White blood cell count is 13, hemoglobin is 7.8, and platelet count is 203. The BUN to creatinine ratio is 42 to 3.41 and the other electrolytes are within normal limits. RADIOGRAPHIC DATA: Chest x-ray shows slight improvement in the airspace opacities. IMPRESSION: 1. Acute respiratory failure. 2. Acute renal failure. 3. Coronavirus disease 2019 infection. 4. Diabetes. 5. Hypertension. PLAN: 1. The patient will receive dialysis and ultrafiltration again today. 2. Continue to wean FiO2 and PEEP as tolerated. 3. Continue to wean sedation as tolerated. 4. Continue enteral feedings. 5. Continue insulin. 6. Case discussed with nursing staff, Internal Medicine, administration, and mother. Greater than 35 minutes in direct critical care time. Joseph Ch MD [facility]/MODL /[id number]
[2019-08-26] MEDS ORDERED: MAGNESIUM HYDROXIDE 30 ML UDC PO ONE (09:00)
[2019-08-26 09:53] LABS: ABG HCO3 29 mmol/L (22-26); ABG PCO2 66 mmHg (35-45); ABG PH 7.26 (7.35-7.45)
[2019-08-26 09:54] LABS: ABG PCO2 66 mmHg (35-45); ABG PH 7.26 (7.35-7.45)
[2019-08-26 09:55] LABS: ABG HCO3 29 mmol/L (22-26)
[2019-08-26] MEDS ORDERED: HEPARIN SOD (PORCINE) 1000 UNIT/ML SDV ONE (11:11)
[2019-08-26] MEDS: EPOETIN ALFA-EPBX 10,000 UNIT/ML VIAL SC SCH (13:57)
[2019-08-26 16:49] LABS: ABG HCO3 28 mmol/L (22-26); ABG PCO2 61 mmHg (35-45); ABG PH 7.27 (7.35-7.45)
[2019-08-26] MEDS: MEROPENEM 1GM 100 ML IV SCH (17:02)
[2019-08-26] MEDS: VANCOMYCIN 750MG/NS 150ML IVPB 150 ML IV SCH (17:03)
--- NOTE | 2019-08-26 19:23 | Progress Note ---
DATE: SUBJECTIVE: Mr. Gonsalez remains in the Intensive Care Unit, remains intubated. He is on dialysis. LABORATORY DATA: Reviewed. White count 13.29 and hemoglobin 7.8. Sodium 139, potassium 4.2 with creatinine 3.4. REVIEW OF SYSTEMS: Could not be obtained. OBJECTIVE: GENERAL: Intubated and sedated. HEENT: He is not icteric. NECK: He had trach. CHEST: Few rhonchi. COR: S1, S2. No murmurs. ABDOMEN: Soft. Bowel sounds present. EXTREMITIES: No edema. IMPRESSION: 1. Respiratory failure, status post COVID-19. 2. [id number]-smcvbfp kidney failure. 3. Blood pressure remains a problem. 4. Oxygenation remains a problem. PLAN: He is going to an LTAC in the morning. Continue with the same. The patient is at risk for pneumonia. MD SHANNAN Jaramillo/MODKirti /[id number]
[2019-08-27] VITALS (16 sets, daily range): BP systolic 100–152; BP diastolic 62–96
[2019-08-27] MEDS: METOCLOPRAMIDE HCL 10 MG/2ML VIAL IV SCH (05:02)
[2019-08-27 05:36] LABS: BASOPHILS # (AUTO) 0.1 (0.0-0.1); BASOPHILS % 0.5 % (0.0-1.0); EOSINOPHILS # (AUTO) 1.8 (0.0-0.4); EOSINOPHILS % 12.4 % (0.0-6.0); HEMATOCRIT 27.1 % (38.2-49.6); HEMOGLOBIN 8.2 g/dL (14.0-18.0); LYMPHOCYTES # (AUTO) 1.2 (1.0-3.2); LYMPHOCYTES % 8.2 % (18.0-39.1); MEAN CORPUSCULAR HEMOGLOBIN 29.9 pg (28-32); MEAN CORPUSCULAR HGB CONC 30.3 g/dL (31-35); MEAN CORPUSCULAR VOLUME 98.9 fL (81-99); MONOCYTES # (AUTO) 1.1 (0.2-0.8); MONOCYTES % 7.7 % (4.4-11.3); NEUTROPHILS # (AUTO) 10.5 (2.1-6.9); NEUTROPHILS % 70.5 % (38.7-80.0); PLATELET COUNT 219 x10e3/uL (140-360); RED BLOOD COUNT 2.74 x10e6/uL (4.3-5.7); RED CELL DISTRIBUTION WIDTH 17.9 % (11.7-14.4)
[2019-08-27 05:59] LABS: ALBUMIN 2.8 g/dL (3.5-5.0); ALBUMIN/GLOBULIN RATIO 0.7 (0.8-2.0); ALKALINE PHOSPHATASE 101 IU/L (40-150); ANION GAP 11.2 mmol/L (8-16); BLOOD UREA NITROGEN 57 mg/dL (7-26); BUN/CREATININE RATIO 14 (6-25); CALCIUM 9.2 mg/dL (8.4-10.2); CARBON DIOXIDE 28 mmol/L (22-29); CHLORIDE 104 mmol/L (98-107); EST GLOMERULAR FILTRATION RATE 16 ML/MIN (60-); GLUCOSE 142 mg/dL (74-118); POTASSIUM 4.2 mmol/L (3.5-5.1); SODIUM 139 mmol/L (136-145)
[2019-08-27 06:03] LABS: ALANINE AMINOTRANSFERASE < 6 IU/L (0-55)
--- NOTE | 2019-08-27 06:17 | Diagnostic Imaging Report ---
EXAMINATION: CHEST SINGLE (PORTABLE) INDICATION: Respiratory failure. COMPARISON: Chest radiograph 08/26/2019. FINDINGS: LINES/TUBES:Tracheostomy tube unchanged. Right IJ temporary dialysis catheter unchanged. Right PICC line unchanged. EKG leads overlie the chest. LUNGS:Slightly increased bilateral airspace and interstitial opacities. PLEURA:Small right greater than left pleural effusions. No pneumothorax. MEDIASTINUM:The cardiomediastinal silhouette appears normal in size and shape. BONES/SOFT TISSUES:No acute osseous abnormality. ABDOMEN:No free air under the diaphragm. IMPRESSION: Slightly increased bilateral airspace and interstitial opacities, which may represent a combination of multifocal pneumonia and pulmonary edema. Lines and tubes as above. Signed by: Dr. Lamar Perla MD on 08/27/2019 6:14 AM
[2019-08-27] MEDS: FENTANYL CITRATE INJ 2,000 MCG in SODIUM CHLORIDE 0.9% 250ML 210 ML IV PRN (06:26)
[2019-08-27] MEDS: MIDAZOLAM HCL 50 MG in SODIUM CHLORIDE 0.9% 100 ML 90 ML IV PRN (06:26)
[2019-08-27 06:55] LABS: MAGNESIUM 2.7 MG/DL (1.3-2.1); PHOSPHORUS 2.5 MG/DL (2.3-4.7)
[2019-08-27] MEDS: EYE LUBRICANT OPTH OINT 3.5GM TUBE OP SCH (08:34)
[2019-08-27] MEDS: SUCRALFATE 1 GM/10 ML SUSP NG SCH (08:34)
[2019-08-27] MEDS: BALSAM PERU/CASTOR OIL 60 GM OINT...G. TP SCH (08:34)
[2019-08-27] MEDS: MIDODRINE 2.5 MG TAB PO SCH (09:00)
[2019-08-27] MEDS: IRON SUCROSE 100 MG in SODIUM CHLORIDE 0.9% 100 ML 100 ML IV SCH (09:44)
[2019-08-27 10:01] LABS: ABG PCO2 52 mmHg (35-45); ABG PH 7.31 (7.35-7.45)
[2019-08-27 10:02] LABS: ABG HCO3 27 mmol/L (22-26)
[2019-08-27] MEDS ORDERED: PANTOPRAZOL 40MG/SOD CHL 0.9% 50 ML IV ONE (11:25)
--- NOTE | 2019-08-27 15:36 | Progress Note ---
DATE: SUBJECTIVE: The patient is now on 60% oxygen and has a saturation in the high 90s. He is on 10 of PEEP. He is awaiting transport to the long-term acute care facility. PHYSICAL EXAMINATION: VITAL SIGNS: Stable. GENERAL: There is a dialysis line in the right IJ. The patient has tracheostomy in good position. Site is clean. CARDIAC: Reveals regular rate and rhythm with normal S1 and S2. LUNGS: Auscultation of lungs reveals rhonchorous breath sounds bilaterally. There is no wheezing. ABDOMEN: Soft, nontender. There is no rebound or guarding. EXTREMITIES: Show no leg edema or calf tenderness. IMPRESSION: 1. Acute respiratory failure. 2. Acute renal failure. 3. Diabetes. 4. Hypertension. PLAN: 1. The patient is scheduled to go to the long-term acute [facility] today. 2. Continue enteral feedings. 3. Continue to monitor blood sugars. 4. Continue to wean ventilation as tolerated. 5. Continue dialysis. Joseph Ch MD [facility]/MODL /[id number]
--- NOTE | 2019-08-28 12:55 | Progress Note ---
DATE: SUBJECTIVE: Mr. Gonsalez remains in intensive care unit on a ventilator. OBJECTIVE: GENERAL: Currently alert, oriented, does not seem to be in any acute distress. VITALS: Stable. Currently afebrile. HEENT: He is not icteric. NECK: Supple. IMPRESSION: 1. COVID-19, status post ARDS. 2. Zqmyy-mh-nniqchb kidney disease. PLAN: Patient is going to [place]. We will follow up with him there and discuss with the medical team. We will follow with you. MD SHANNAN Jaramillo/MODL /[id number]
[2019-08-29 09:28] LABS: ABG PO2 70 mmHg (80-90)
[2019-08-29 09:36] LABS: ABG PO2 63 mmHg (80-90)
[2019-08-29 10:19] LABS: ABG PO2 59 mmHg (80-90)
[2019-08-29 10:43] LABS: ABG PO2 87 mmHg (80-90)
[2019-08-29 10:48] LABS: ABG PO2 123 mmHg (80-105)
[2019-08-29 10:51] LABS: ABG PO2 73 mmHg (80-105)
[2019-08-29 10:53] LABS: ABG PO2 73 mmHg (80-105)
[2019-08-29 11:02] LABS: ABG PO2 63 mmHg (80-105)
[2019-08-29 11:08] LABS: ABG PO2 47 mmHg (80-105)
[2019-08-29 11:09] LABS: ABG PO2 82 mmHg (80-105)
[2019-08-29 11:14] LABS: ABG PO2 82 mmHg (80-105)
[2019-08-29 11:15] LABS: ABG PO2 66 mmHg (80-105)
[2019-08-29 11:17] LABS: ABG PO2 82 mmHg (80-105)
[2019-08-29 11:42] LABS: ABG PO2 69 mmHg (80-105)
== END 2019-08-27 11:59 | DRG 4 ==
LOC: ER 15:20 → ERHOLD 22:20 → ICU 23:33
PROC: 5A1955Z Respiratory Ventilation, Greater than 96 Consecutive Hours (ICD-10-PCS; principal; 2019-07-23)
PROC: 0BH18EZ Insertion of Endotracheal Airway into Trachea, Via Natural or Artificial Opening Endoscopic (ICD-10-PCS; 2019-07-23)
PROC: 02HV33Z Insertion of Infusion Device into Superior Vena Cava, Percutaneous Approach (ICD-10-PCS; 2019-07-23)
PROC: 03HC33Z Insertion of Infusion Device into Left Radial Artery, Percutaneous Approach (ICD-10-PCS; 2019-07-30)
PROC: 02HV33Z Insertion of Infusion Device into Superior Vena Cava, Percutaneous Approach (ICD-10-PCS; 2019-08-01)
PROC: 02HV33Z Insertion of Infusion Device into Superior Vena Cava, Percutaneous Approach (ICD-10-PCS; 2019-08-06)
PROC: 0B110F4 Bypass Trachea to Cutaneous with Tracheostomy Device, Open Approach (ICD-10-PCS; 2019-08-08)
PROC: 02HV33Z Insertion of Infusion Device into Superior Vena Cava, Percutaneous Approach (ICD-10-PCS; 2019-08-12)
PROC: 5A1D70Z Performance of Urinary Filtration, Intermittent, Less than 6 Hours Per Day (ICD-10-PCS; 2019-08-12)
PROC: 30243N1 Transfusion of Nonautologous Red Blood Cells into Central Vein, Percutaneous Approach (ICD-10-PCS; 2019-08-22)
PROC: 0DH68UZ Insertion of Feeding Device into Stomach, Via Natural or Artificial Opening Endoscopic (ICD-10-PCS; 2019-08-23)
PROC: 0DJ08ZZ Inspection of Upper Intestinal Tract, Via Natural or Artificial Opening Endoscopic (ICD-10-PCS; 2019-08-23)
DX: A41.9 Sepsis, unspecified organism (principal); E11.10 Type 2 diabetes mellitus with ketoacidosis without coma; N17.0 Acute kidney failure with tubular necrosis; N18.6 End stage renal disease; G93.41 Metabolic encephalopathy; R65.21 Severe sepsis with septic shock; J12.81 Pneumonia due to SARS-associated coronavirus; U07.1 COVID-19; J80 Acute respiratory distress syndrome; J91.8 Pleural effusion in other conditions classified elsewhere; E87.0 Hyperosmolality and hypernatremia; I12.0 Hypertensive chronic kidney disease with stage 5 chronic kidney disease or end stage renal disease; B97.29 Other coronavirus as the cause of diseases classified elsewhere; L89.152 Pressure ulcer of sacral region, stage 2; G47.33 Obstructive sleep apnea (adult) (pediatric); I25.10 Atherosclerotic heart disease of native coronary artery without angina pectoris; I25.2 Old myocardial infarction; Z87.891 Personal history of nicotine dependence; Z95.5 Presence of coronary angioplasty implant and graft; D69.6 Thrombocytopenia, unspecified; E66.9 Obesity, unspecified; Z68.31 Body mass index [BMI] 31.0-31.9, adult; D50.9 Iron deficiency anemia, unspecified; Z99.2 Dependence on renal dialysis
CPT/HCPCS: 31500; 36415; 36556; 36569; 36600; 51700; 71045; 71250; 73020; 74018; 74470; 76604; 76937; 80048; 80053; 80061; 80076; 80202; 81001; 82150; 82270; 82550; 82553; 82607; 82728; 82746; 82805; 82948; 83036; 83540; 83605; 83690; 83735; 83880; 84100; 84145; 84439; 84443; 84466; 84484; 85025; 85045; 85379; 85384; 85610; 85730; 86140; 86704; 86705; 86707; 86850; 86900; 86920; 87040; 87071; 87086; 87205; 87340; 87633; 87635; 90962; 93005; 93306; 93970; 93971; 94002; 94003; 99251; 99285; C1769; J0456; J1450; J1644; J1650; J1756; J1815; J1817; J1940; J2060; J2150; J2248; J2250; J2543; J2765; J3370; J3480; J7030; J7050; J7070; J7799; P9016; P9047

== ENCOUNTER 2019-12-19 10:22 | Observation (INO) | payer OTHER ==
[~2019-12-19] VITALS: Ht 172.7 cm; Wt 94.3 kg
[~2019-12-19 10:22] MED LIST changes: -VECURONIUM BROMIDE FOR INJ 20 MG VIAL ONE; -WATER STERILE 10 ML VIAL ONE
[2019-12-19] MEDS ORDERED: ASPIRIN 81 MG CHEW TAB PO ONE (10:30)
[2019-12-19 11:08] LABS: BASOPHILS # (AUTO) 0.1 (0.0-0.1); BASOPHILS % 0.5 % (0.0-1.0); EOSINOPHILS # (AUTO) 0.4 (0.0-0.4); HEMATOCRIT 35.2 % (38.2-49.6); LYMPHOCYTES # (AUTO) 1.7 (1.0-3.2); LYMPHOCYTES % 15.8 % (18.0-39.1); MEAN CORPUSCULAR HEMOGLOBIN 28.6 pg (28-32); MEAN CORPUSCULAR HGB CONC 31.3 g/dL (31-35); MEAN CORPUSCULAR VOLUME 91.4 fL (81-99); MONOCYTES # (AUTO) 0.8 (0.2-0.8); MONOCYTES % 7.3 % (4.4-11.3); NEUTROPHILS # (AUTO) 7.7 (2.1-6.9); PLATELET COUNT 216 x10e3/uL (140-360); RED BLOOD COUNT 3.85 x10e6/uL (4.3-5.7); RED CELL DISTRIBUTION WIDTH 14.1 % (11.7-14.4)
[2019-12-19 11:29] LABS: ALBUMIN 3.4 g/dL (3.5-5.0); ALBUMIN/GLOBULIN RATIO 0.9 (0.8-2.0); ANION GAP 15.9 mmol/L (8-16); CALCIUM 9.4 mg/dL (8.4-10.2); CREATININE, SERUM 2.59 mg/dL (0.72-1.25); POTASSIUM 4.9 mmol/L (3.5-5.1)
[2019-12-19 11:36] LABS: CREATINE KINASE MB 1.4 ng/mL (0-5.0)
--- NOTE | 2019-12-19 11:42 | Diagnostic Imaging Report ---
EXAM: CHEST SINGLE (PORTABLE) DATE: 12/19/2019 11:05 AM INDICATION: Shortness of breath COMPARISON: 08/27/2019 FINDINGS/IMPRESSION: The trachea is midline. There are mildly increased interstitial opacities present bilaterally, which are improved in appearance from the prior examination from 08/27/2019. There is no evidence for large focal consolidation, pneumothorax, or significant volume pleural effusion. The cardiomediastinal silhouette is stable in appearance. No acute osseous abnormalities identified. Signed by: Dr. Jn Charles MD on 12/19/2019 11:38 AM
--- NOTE | 2019-12-19 12:08 | Emergency Department Note ---
History of Present Illnes History of Present Illness Chief Complaint: COVID PUI History of Present Illness This is a 49 year old male arrives to the ED with complaints of cough and shortness of breath. Patient's oxygen saturation dropped to 83% a mcfp and was sent to the ED for further workup and management. Historian: Patient Arrival Mode: Car Severity: moderate Onset quality: gradual Duration (how long): day(s) Timing of current episode: constant Progression: worsening Chronicity: new Context: Reports recent illness Relieving factors: none Past Medical/Family History Physician Review I have reviewed the patient's past medical and family history. Any updates have been documented here. Past Medical History Recent Fever: No Clinical Suspicion of Infectio: No New/Unexplained Change in Ment: No Past Medical History: Hypertension, Diabetes, CAD, Anxiety, Hyperlipedemia Other Medical History: HIGH CHOLESTEROL GERD SLEEP APNEA Past Surgical History: PCI Other Surgery: vasectomy Social History Alcohol Use: Social Physically hurt or threatened: No Other Last Tetanus: unk Review of Systems Review of Systems Constitutional: Reports as per HPI EENTM: Reports no symptoms Cardiovascular: Reports no symptoms Respiratory: Reports as per HPI Gastrointestinal: Reports no symptoms Genitourinary: Reports no symptoms Musculoskeletal: Reports no symptoms Integumentary: Reports no symptoms Neurological: Reports no symptoms Psychological: Reports no symptoms Endocrine: Reports no symptoms Hematological/Lymphatic: Reports no symptoms Physical Exam Related Data Allergies: Coded Allergies: No Known Allergies (Unverified , 10/20/16) Triage Vital Signs Vital Signs Date Time Temp Pulse Resp B/P (MAP) Pulse Ox O2 Delivery O2 Flow Rate FiO2 12/19/19 10:45 98.4 92 18 128/92 97 Room Air Physical Exam CONSTITUTIONAL Constitutional: Present well-developed, Present well-nourished HENT HENT: Present normocephalic, Present atraumatic, Present oropharynx clear/moist, Present nose normal HENT L/R: Present left ext ear normal, Present right ext ear normal EYES Eyes: Reports PERRL, Reports conjunctivae normal NECK Neck: Present ROM normal PULMONARY Pulmonary: Present effort normal, Present breath sounds normal CARDIOVASCULAR Cardiovascular: Present regular rhythm, Present heart sounds normal, Present capillary refill normal, Present normal rate GASTROINTESTINAL Abdominal: Present soft, Present nontender, Present bowel sounds normal GENITOURINARY Genitourinary: Present exam deferred SKIN Skin: Present warm, Present dry MUSCULOSKELETAL Musculoskeletal: Present ROM normal NEUROLOGICAL Neurological: Present alert, Present oriented x 3, Present no gross motor or sensory deficits PSYCHOLOGICAL Psychological: Present mood/affect normal, Present judgement normal Results Laboratory Result Diagram: 12/19/19 1055 12/19/19 1055 Laboratory Laboratory Tests Test 12/19/19 10:55 12/19/19 10:48 White Blood Count 10.74 x10e3/uL (4.8-10.8) Red Blood Count 3.85 x10e6/uL (4.3-5.7) Hemoglobin 11.0 g/dL (14.0-18.0) Hematocrit 35.2 % (38.2-49.6) Mean Corpuscular Volume 91.4 fL (81-99) Mean Corpuscular Hemoglobin 28.6 pg (28-32) Mean Corpuscular Hemoglobin Concent 31.3 g/dL (31-35) Red Cell Distribution Width 14.1 % (11.7-14.4) Platelet Count 216 x10e3/uL (140-360) Neutrophils (%) (Auto) 72.0 % (38.7-80.0) Lymphocytes (%) (Auto) 15.8 % (18.0-39.1) Monocytes (%) (Auto) 7.3 % (4.4-11.3) Eosinophils (%) (Auto) 4.0 % (0.0-6.0) Basophils (%) (Auto) 0.5 % (0.0-1.0) Neutrophils # (Auto) 7.7 (2.1-6.9) Lymphocytes # (Auto) 1.7 (1.0-3.2) Monocytes # (Auto) 0.8 (0.2-0.8) Eosinophils # (Auto) 0.4 (0.0-0.4) Basophils # (Auto) 0.1 (0.0-0.1) Absolute Immature Granulocyte (auto 0.04 x10e3/uL (0-0.1) Sodium Level 141 mmol/L (136-145) Potassium Level 4.9 mmol/L (3.5-5.1) Chloride Level 109 mmol/L (98-107) Carbon Dioxide Level 21 mmol/L (22-29) Anion Gap 15.9 mmol/L (8-16) Blood Urea Nitrogen 68 mg/dL (7-26) Creatinine 2.59 mg/dL (0.72-1.25) Estimat Glomerular Filtration Rate 26 ML/MIN (60-) BUN/Creatinine Ratio 26 (6-25) Glucose Level 124 mg/dL (74-118) Calcium Level 9.4 mg/dL (8.4-10.2) Total Bilirubin 0.2 mg/dL (0.2-1.2) Aspartate Amino Transf (AST/SGOT) 11 IU/L (5-34) Alanine Aminotransferase (ALT/SGPT) 12 IU/L (0-55) Alkaline Phosphatase 85 IU/L (40-150) Creatine Kinase 40 IU/L (30-200) Creatine Kinase MB 1.40 ng/mL (0-5.0) Troponin I 0.004 ng/mL (0-0.300) B-Type Natriuretic Peptide < 10.0 pg/mL (0-100) Total Protein 7.4 g/dL (6.5-8.1) Albumin 3.4 g/dL (3.5-5.0) Globulin 4.0 g/dL (2.3-3.5) Albumin/Globulin Ratio 0.9 (0.8-2.0) Lipase 20 U/L (8-78) Bedside Glucose 161 mg/dL (70-120) Lab results reviewed: Yes Imaging Imaging results reviewed: Yes Impressions FINDINGS/IMPRESSION: The trachea is midline. There are mildly increased interstitial opacities present bilaterally, which are improved in appearance from the prior examination from 08/27/2019. There is no evidence for large focal consolidation, pneumothorax, or significant volume pleural effusion. The cardiomediastinal silhouette is stable in appearance. No acute osseous abnormalities identified. Assessment & Plan Medical Decision Making MDM 49-year-old male brought to the ED with worsening shortness of breath. Patient states on exertion his oxygen saturation goes down to the 80s. Patient with long hospital course secondary to Covid pneumonia, pt admitted her further monitoring, observation and pulmonary embolus ruled out. Patient's labwork reviewed, with a creatinine improving and chest x-ray also looks better from July. Dr. Ch informed. Assessment & Plan Final Impression: (1) Acute respiratory failure Depart Disposition: ADMITTED Last Vital Signs Date Time Temp Pulse Resp B/P (MAP) Pulse Ox O2 Delivery O2 Flow Rate FiO2 8/14/20 10:45 98.4 92 18 128/92 97 Room Air Home Meds Reported Medications Levofloxacin (LEVAQUIN) 500 Mg Tablet, 500 MG PO DAILY, TAB 10/20/16 Levofloxacin (LEVAQUIN) 250 Mg Tablet, 250 MG PO DAILY, #30 TAB 10/20/16 Pioglitazone Hcl (PIOGLITAZONE HCL) 45 Mg Tablet, 15 MG PO DAILY, #30 TAB 10/20/16 Atenolol (ATENOLOL) 50 Mg Tablet, 100 PO 10/20/16 Levocetirizine Dihydrochloride (XYZAL) 5 Mg Tablet, 5 MG PO DAILY THERAPEUTICALLY SUBSTITUTED WITH LORATADINE 10/20/16 Atorvastatin Calcium (LIPITOR) 20 Mg Tablet, 20 MG DAILY, #30 TAB 10/20/16 Nifedipine (PROCARDIA XL) 30 Mg Tab.er.24, 60 MG DAILY, #30 TAB 10/20/16 Sucralfate (CARAFATE) 1 Gm/10 Ml Oral.susp, 1 GM PO BID, ML 10/20/16 Insulin Lispro (HUMALOG) 100 Unit/1 Ml Cartridge 10/20/16 Valsartan (DIOVAN) 160 Mg Tab, 320 MG PO DAILY, #60 TAB 10/20/16 Ticagrelor (BRILINTA) 90 Mg Tablet, BID 10/20/16 Aspirin (ASPIRIN) 81 Mg Tab.chew 10/20/16 Medications in the ED Aspirin 81 mg PRN ONCE PO ; Start 12/19/19 at 10:30; Stop 12/19/19 at 10:39; Status BENNY JORGENSEN DO Dec 19, 2019 12:08
--- OUTSIDE RECORDS SUMMARY | 2019-12-19 12:32 | XMS REPORT ---
Author Author Jay Kothari [facility] eClinicalWorks Address Unknown Phone Unavailable Care Team Providers Care Ore Puncher Name Role Phone Judy Kothari CP Unavailable Allergies No Known Allergies Problems Problem Type Condition Code Onset Dates Condition Statu s Problem Hyperlipidemia, mixed E78.2 Active Problem Type 2 diabetes mellitus with hyperglycemia E11.65 Active Problem Essential (primary) hypertension I10 Active Problem Syncope R55 Active Problem Encounter for screening for malignant neoplasm of pros peacock Z12.5 Active Problem CAD (coronary artery disease) I25.10 Active Problem Paresthesia of lower extremity R20.2 Active Problem Type 2 diabetes mellitus with diabetic neuropathy E11. 40 Active Problem Sinusitis J32.9 Active Problem Erectile dysfunction N52.9 Active Problem Abnormal electrocardiogram [ECG] [EKG] 794.31 Active Problem Hyperlipidemia 272.4 Active Problem Chest Pain 786.50 Active Problem Diabetes Type 2 Uncontrolled 250.02 Active Problem HEADACHE SYNDROME NEC 339.89 Active Problem Hypertension 401.1 Active Problem BMI 35.0-35.9,adult Z68.35 Active Problem Obesity, unspecified 278.00 Active Problem BMI 38.0-38.9,adult Z68.38 Active Medications Medication Code System Code Instructions Start Date End Date Status Dosage Xigduo XR [facility] 030029 10 mg-1000 mg orally once a day (in the morning) October 26, 2016 Inactive 1 tab(s) Synjardy [facility] 176831 12.5 mg-1000 mg orally 2 times a day October 26 017 Active 1 tab(s) Results No Known Results Summary Purpose eClinicalWorks Submission
--- OUTSIDE RECORDS SUMMARY | 2019-12-19 12:32 | XMS REPORT ---
Author Author Jay Kothari [facility] eClinicalWorks Address Unknown Phone Unavailable Care Team Providers Care Web Development Consultant Name Role Phone Judy Kothari Unavailable Encounters Encounter Location Date Unknown Jeff Kothari MD Apr 02, 2013 Problems Problem Type Condition ICD-9 Code Onset Dates Condition Statu s Problem Diabetes Type 2 Uncontrolled 250.02 Active Problem Obesity, unspecified 278.00 Active Problem HEADACHE SYNDROME NEC 339.89 Active Problem Abnormal electrocardiogram [ECG] [EKG] 794.31 Active Problem Chest Pain 786.50 Active Problem Hypertension 401.1 Active Problem Hyperlipidemia 272.4 Active Social History Social History Element Qualifiers Date Reported Language: . Occitan Apr 02, 2013 Marital Status: . Apr 02, 2013 Caffeine: yes. 1 c/day, 1-2 cokes per day Mar Exercise: no. Apr 02, 2013 Smoking/Tobacco Use: no. Patient is a: Former Smoker Quit 1 8 years ago Apr 02, 2013 Alcohol: socially. Occasional drinker Apr 02 13 Occupation: employed. [employer]er [employer] Apr 02, 2013 Vital Signs Date/Time: Apr 02, 2013 Weight 224.6 lbs Height 68 inches Blood Pressure Diastolic 94 mm Hg Blood Pressure Systolic 126 mm Hg Summary Purpose eClinicalWorks Submission
--- OUTSIDE RECORDS SUMMARY | 2019-12-19 12:32 | XMS REPORT | Clinical Summary ---
Author Author [facility] Address Unknown Phone Unavailable Care Team Providers Care Regional Sales Consultant Name Role Phone PCP Unavailable Allergies No Known Allergies Medications End Date Status Medication Sig Dispensed Refills Start Date Active valsartan (DIOVAN) 320 MG Take 320 mg 0 tablet by mouth daily. Active atorvastatin (LIPITOR) 20 Take 20 mg by 0 MG tablet mouth nightly. Active levocetirizine (XYZAL) 5 Take 5 mg by 0 MG tablet mouth every evening. Active NIFEdipine (PROCARDIA-XL) Take 60 mg by 0 60 MG (OSM) 24 hr tablet mouth every evening. Active Missing or Non-Formulary Inject 1.5 mg 0 Medication subcutaneousl y once a week Trulicity (dulaglutide) . Patient takes once a week on Saturdays. . Active ticagrelor (BRILINTA) 90 Take 1 tablet 60 tablet 0 10/18/201 mg Tab tablet (90 mg total) 7 by mouth 2 (two) times daily. Active Problems Problem Noted Date Pneumonia 10/12/2016 Syncope 10/25/2015 Chest pain 10/25/2015 Encounters Care Team Description Date Type Specialty Blanca Medel 07/27/2019 Outside Orders Lab Philippe Saldivar MD Shortness of Breath 07/23/2019 Telephone Critical Care Medic ine after 12/18/2018 Family History Medical History Relation Name Comments Heart disease Father Stroke Father Cancer Maternal colon cancer Grandfather Stroke Mother Cancer Paternal Grandfather Relation Name Status Comments Father Maternal Grandfather Mother Paternal Grandfather Social History Date Tobacco Use Types Packs/Day Years Used Current Every Day Smoker Cigarettes 5 Smokeless Tobacco: Current User Alcohol Use Drinks/Week oz/Week Comments Yes Sex Assigned at Date Recorded Not on file Industry Job Start Date Occupation Not on file Not on file Not on file Travel End Travel History Travel Start No recent travel history available. Last Filed Vital Signs Not on file Plan of Treatment Not on file Implants Device Identifier Shelf Expiration Date Model / Serial / L ot Implanted Type Area Manufactur er 2.25 X 20 SYNERGY / [id number] / [id number] 2.25 X 20 Synergy Stents-Cor Left: Coronary [place] Implanted: Qty: 1 on 10/17/2016 by [employer] Mati Augustine Jr., MD SYNERGY / [id number] / [id number] Stent [place] Implanted: Qty: 1 on 10/17/2016 by [employer] Mati [place] Jr., MD Results Not on fileafter 12/18/2018
--- OUTSIDE RECORDS SUMMARY | 2019-12-19 12:32 | XMS REPORT ---
Author Author Jay Guthrie Organization eClinicalWorks Address Unknown Phone Unavailable Care Team Providers Care Software Project Engineer Name Role Phone Sony Guthrie CP Unavailable Allergies, Adverse Reactions, Alerts Substance Reaction Event Type N.K.D.A. Info Not Available Non Drug Allergy Encounters Encounter Location Date Unknown Jeff Kothari MD Apr 02, 2013 [facility] Jeff Kothari MD Apr 22, 2013 1 yr f/u Jeff Kothari MD Mar 19, 2015 Problems Problem Type Condition ICD-9 Code Onset Dates Condition Statu s Problem Hyperlipidemia 272.4 Active Problem Obesity, unspecified 278.00 Active Problem Hypertension 401.1 Active Problem Essential (primary) hypertension I10 Active Problem Hyperlipidemia, mixed E78.2 Active Problem Type 2 diabetes mellitus with hyperglycemia E11.65 Active Problem HEADACHE SYNDROME NEC 339.89 Active Problem Diabetes Type 2 Uncontrolled 250.02 Active Problem BMI 38.0-38.9,adult Z68.38 Active Problem BMI 35.0-35.9,adult Z68.35 Active Assessment BMI 35.0-35.9,adult Z68.35 Active Assessment Type 2 diabetes mellitus with diabetic neuropathy E11. 40 Active Assessment Type 2 diabetes mellitus with hyperglycemia E11.65 Active Assessment Hyperlipidemia, mixed E78.2 Active Problem Chest Pain 786.50 Active Assessment Essential (primary) hypertension I10 Active Problem Abnormal electrocardiogram [ECG] [EKG] 794.31 Active Medications Medication Code System Code Instructions Start Date End Date Status Dosage atorvastatin MULTUM 60441 20 mg orally once a day (at bedtime) Active 1 tab(s) Pioglitazone Hydrochloride MULTUM 476899 15 mg orally once a day Mar 19, 2015 Active 1 tab(s) MetFORMIN Hydrochloride ER MULTUM 52506 1000 mg orally bid Inactive 1 tab(s) Lantus Solostar Pen MULTUM 681946 100 units/ml subcutaneously at bedtime Active 50 units ONE TOUCH ULTRA MINI LANCETS MULTUM 91916 - - tid qac Inactive - hydrochlorothiazide-losartan MULTUM 80778 25 mg-320mg orally on ce a day Active 1 tab(s) OneTouch Delica Lancets 30g MULTUM 4913940 - check blood sugars 3 times a day Mar 19, 2015 Active as directed Aspir 81 MULTUM 231855 81 mg orally once a day Mar 19, 2015 Ac tive 1 tab(s) atenolol MULTUM 58608 100 mg orally once a day Mar 19, 2015 A ctive 1 tab(s) BD Ultrafine Stephanie Pen [place] Unknown 0 4mm x 32G a s directed tid qac May 29, 2013 Active as directed Victoza Unknown 0 18 mg/3 mL sq once a day Active 1.8 mg Adipex-P MULTUM 2598 37.5 mg orally once a day May 29, 2013 Active 1 tab(s) OneTouch Ultra Test Strip MULTUM 9530340 - check blood s ugars 3 times daily Mar 19, 2015 Active as directed Metoprolol ER succinate Unknown 0 25mgms orally once a day Active 1 tablet Trulicity Pen MULTUM 776270 1.5 mg/0.5 mL subcutaneousl y once a week Mar 19, 2015 Active 1.5 mg Xigduo XR MULTUM 004209 10 mg-1000 mg orally once a day (in the morning) Mar 19, 2015 Active 1 tab(s) Lantus Solostar Pen MULTUM 648337 100 units/mL Activ e INJECT 10 UNITS DAILY DIRECTED amlodipine MULTUM 35499 5 mg orally once a day Inacti ve 1 tab(s) Humalog KwikPen MULTUM 281201 100 units/ml subcutaneously tid qac Active 20 units ONE TOUCH ULTRA TEST STRIPS Unknown 0 N/A N/A tid qac Inactive check blood sugar hydrochlorothiazide-valsartan MULTUM 58732 25 mg-320 mg orally once a day Active 1 tab(s) Social History Social History Element Qualifiers Date Reported Language: . Latvian Apr 20, 2015 Marital Status: . Apr 20, 2015 Caffeine: yes. 3 c/day 1 coffee, 1 coke, 1 tea D 2014 Exercise: no. Apr 20, 2015 Smoking/Tobacco Use: no. Patient is a: Former Smoker Quit 1 8 years ago Apr 20, 2015 Alcohol: socially. 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
--- OUTSIDE RECORDS SUMMARY | 2019-12-19 12:32 | XMS REPORT ---
Author Author Jay Guthrie Organization eClinicalWorks Address Unknown Phone Unavailable Care Team Providers Care Fabrication And Layout Craftsman Name Role Phone Sony Guthrie Unavailable Encounters Encounter Location Date Unknown Jeff Kothari MD Apr 02, 2013 [facility] Jeff Kothari MD Apr 22, 2013 Problems Problem Type Condition ICD-9 Code Onset Dates Condition Statu s Assessment Diabetes Type 2 Uncontrolled 250.02 Active Problem Diabetes Type 2 Uncontrolled 250.02 Active Problem Obesity, unspecified 278.00 Active Problem HEADACHE SYNDROME NEC 339.89 Active Problem Abnormal electrocardiogram [ECG] [EKG] 794.31 Active Problem Chest Pain 786.50 Active Problem Hypertension 401.1 Active Problem Hyperlipidemia 272.4 Active Medications Medication Code System Code Instructions Start Date End Date Status Dosage Lantus Solostar Pen MULTUM 291654 100 units/mL subcutaneously daily Active 45 units ONE TOUCH ULTRA TEST STRIPS Unknown 0 N/A N/A tid qac Active check blood sugar hydrochlorothiazide-losartan MULTUM 31615 25 mg-320mg orally on ce a day Active 1 tab(s) MetFORMIN Hydrochloride ER MULTUM 27956 1000 mg orally bid Active 1 tab(s) atorvastatin MULTUM 73417 40 mg orally once a day (at bedtime) Active 1 tab(s) ONE TOUCH ULTRA MINI LANCETS MULTUM 20672 - - tid qac Active - amlodipine MULTUM 30149 5 mg orally once a day Active 1 tab(s) ibuprofen MULTUM 16907 600 mg orally bid prn Inactive 1 tab(s) Victoza Unknown 0 18 mg/3 mL sq once a day Active 1.8 mg Metoprolol ER succinate Unknown 0 25mgms orally once a day Active 1 tablet Humalog KwikPen MULTUM 955859 100 units/mL subcutaneously tid qac Active 12- 15 units Social History Social History Element Qualifiers Date Reported Language: . Romansh Apr 22, 2013 Marital Status: . Apr 22, 2013 Caffeine: yes. 1 c/day, 1-2 cokes per day Apr Exercise: no. Apr 22, 2013 Smoking/Tobacco Use: no. Patient is a: Former Smoker Quit 1 8 years ago Apr 22, 2013 Alcohol: socially. Occasional drinker Apr 22 Occupation: employed. [employer] Apr 22, 2013 Family history Qualifier Description Comment Date Reported Maternal Grand Mother colon cancer Apr 22 Paternal Grand Mother cancer Apr 22 13 Siblings alive 1 bro MR Apr 22, 2013 Maternal Grand Father Comment not available Apr 22, 2013 Children alive 1 daughter, 1 son Apr 22, 2013 Father alive heart disease Apr 22, 2013 Paternal Grand Father lung cancer Apr 22 Mother alive Comment not available Apr 22 13 Vital Signs Date/Time: Apr 22, 2013 Weight 266 lbs Height 68 inches Blood Pressure Diastolic 84 mm Hg Blood Pressure Systolic 114 mm Hg Results Finger stick glucose Blood Sugar(- ) BS 219 Summary Purpose eClinicalWorks Submission
--- OUTSIDE RECORDS SUMMARY | 2019-12-19 12:32 | XMS REPORT | Continuity of Care Document ---
Author Author [employer] Address Unknown Phone Unavailable Care Team Providers Care Aligner Name Role Phone [employer] Unavailable Un available Problems Problem Status Onset Date Classification Date Reported Comments Source Hyperlipidemia, mixed Active Problem 10/27/2016 eCW: Jeff Kothari Type 2 diabetes mellitus with hyperglycemia Active Problem 10/27/2016 eCW: Jeff Kothari Essential (primary) hypertension Active Problem eCW: Jeff Kothari Syncope Active Problem 10/27/2016 eCW: Jeff Kothari Encounter for screening for malignant ne oplasm of prostate Active Prob enriqueta 10/27/2016 eCW: Jeff Kothari CAD (coronary artery disease) Active Problem eCW: Jeff Kothari Paresthesia of lower extremity Active Problem eCW: Jeff Kothari Type 2 diabetes mellitus with diabetic neuropathy Active Problem 10/27/2016 eCW: Jeff Kothari Sinusitis Active Problem 10/27/2016 eCW: Jeff Kothari Erectile dysfunction Active Problem 10/27/2016 eCW: Jeff Kothari Abnormal electrocardiogram [ECG] [EKG] Active Problem 10/27/2016 eCW: Jeff Kothari Hyperlipidemia Active Problem 10/27/2016 eCW: Jeff Kothari Chest Pain Active Problem 10/27/2016 eCW: Jeff Kothari Diabetes Type 2 Uncontrolled A ctive Problem eCW: Jeff Kothari HEADACHE SYNDROME NEC Active Problem 10/27/2016 eCW: Jeff Kothari Hypertension Active Problem 10/27/2016 eCW: Jeff Kothari BMI 35.0-35.9,adult Active Problem 10/27/2016 eCW: Jeff Kothari Obesity, unspecified Active Problem 10/27/2016 eCW: Jeff Kothari BMI 38.0-38.9,adult Active Problem 10/27/2016 eCW: Jeff Kothari No-show for appointment Active Diagnosis 06/17/2016 eCW: Jeff Saniya Medications Medication Details Route Status Patient Instructions Ordering Provider Order Date Source Xigduo XR 1 tab(s) orally Active 10 mg-1000 mg orally on ce a day (in the morning) Saniya 10/26/2016 eCW: Jeff Kothari Synjardy 1 tab(s) orally Active 12.5 mg-1000 mg orally 2 times a day [place] 10/26/2016 eCW: Jeff Kothari Fluticasone Propionate 1 spray (s) intranasally Active 50 mcg/inh intranasally once a day San[place] 11/19/2015 eCW: Jeff Kothari Levocetirizine Dihydrochloride 1 tab(s) orally Active 5 mg orally once a day (in the evening) [place] 11/19/2015 eCW: Jeff Kothari valsartan 1 tab(s) orally Active 320 mg orally once a da y Saniya 08/17/2015 eCW: Jeff Kothari atenolol-chlorthalidone 1 tab( s) orally Active 100 mg-25 mg orally once a day [place] 08/17/2015 eCW: Jeff Kothari AmLODIPine Besylate 1 tab(s) orally Active 5 mg orally once a day [place] 08/17/2015 eCW: Jeff Kothari Cialis 1 tab(s) orally Active 5 mg orally once a day [place] 04/20/2015 eCW: Jeff Kothari Pioglitazone Hydrochloride 1 t ab(s) orally Active 15 mg orally once a day 03/19/2015 eCW: Jeff Davies Delica Lancets 30g as directed check blood sugars Active - check blood sugars 3 times a day [place] 03/19/2015 eCW: Jeff Kothari Aspir 81 1 tab(s) orally Active 81 mg orally once a day [place] 03/19/2015 eCW: Jeff Kothari atenolol 1 tab(s) orally Active 100 mg orally once a da y [place] 03/19/2015 eCW: Jeff Davies Ultra Test Strip as d irected check blood sugars Active - check blood sugars 3 times daily [place] 03/19/2015 eCW: Jeff Kothari Trulicity Pen 1.5 mg subcutaneously Active 1.5 mg/0.5 mL subcutaneously once a week [place] 03/19/2015 eCW: Jeff Kothari Xigduo XR 1 tab(s) orally Active 10 mg-1000 mg orally on ce a day (in the morning) [facility] 03/19/2015 eCW: Jeff Kothari BD Ultrafine Stephanie Pen [place] as directed as directed Active 4mm x 32G as directed tid [facility] 05/29/2013 eCW: Jeff Kothari Adipex-P 1 tab(s) orally Active 37.5 mg orally once a d ay [facility] 05/29/2013 eCW: Jeff Kothari atorvastatin 1 tab(s) orally Active 20 mg orally once a day (at bedtime) [place]iya eCW: Jeff Kothari MetFORMIN Hydrochloride ER 1 t ab(s) orally No Longer Active 1000 mg orally bid [place] eCW: Jeff Kothari Lantus Solostar Pen 24 units subcutaneously Active 100 units/ml subcutaneously at bedtime [place] eCW: Jeff Kothari ONE TOUCH ULTRA MINI LANCETS - - No Longer Active - - [facility]: Jeff Kothari hydrochlorothiazide-losartan 1 tab(s) orally Active 25 mg-320mg orally once a day [place] eCW: Jeff Kothari Victoza 1.8 mg sq Active 18 mg/3 mL sq once a da y [place] eCW: Jeff Kothari Metoprolol ER succinate 1 tabl et orally Active 25mgms orally once a day [place] eCW: Jeff Kothari amlodipine 1 tab(s) orally No Longer Active 5 mg orally o nce a day [place] eCW: Jeff Kothari Humalog KwikPen 12 units subcutaneously Active 100 units/ml subcutaneously tid [facility] [place]iya eCW: Jeff Kothari ONE TOUCH ULTRA TEST STRIPS ch charissa blood sugar N/A No Longer Active N/A N/A tid qa [place] eCW: Jeff Kothari hydrochlorothiazide-valsartan 1 tab(s) orally No Longer Active 25 mg-320 mg orally once a day [place] eCW: Jeff Kothari ibuprofen 1 tab(s) orally No Longer Active 600 mg orally bid prn [place] eCW: Jeff Kothari Xigduo XR 1 tab(s) orally Active 10 mg-1000 mg orally on ce a day (in the morning) [place] eCW: Jeff Kothari Pioglitazone Hydrochloride 1 t ab(s) orally Active 15 mg orally once a day [place] eCW: Jeff Kothari BD Ultrafine Stephanie Pen [place] as directed as directed Active 4mm x 32G as directed tid qac [place]iya eCW: Jeff Kothari Trulicity Pen 1.5 mg subcutaneously Active 1.5 mg/0.5 mL subcutaneously once a week [place] eCW: Jeff Davies Delica Lancets 30g as directed check blood sugars Active - check blood sugars 3 times a day [place] eCW: Jeff Kothari atenolol 1 tab(s) orally No Longer Active 100 mg orally once a day [place] eCW: Jeff Kothari Aspir 81 1 tab(s) orally Active 81 mg orally once a day [place]iya eC W: Jeff Davies Ultra Test Strip as d irected check blood sugars Active - check blood sugars 3 times daily [place] eCW: Jeff Kothari Cialis 1 tab(s) orally No Longer Active 5 mg orally o nce a day [place] eCW: Jeff Kothari AmLODIPine Besylate 1 tab(s) orally Active 5 mg orally once a day [place] eCW: Jeff Kothari atenolol-chlorthalidone 1 tab( s) orally Active 100 mg-25 mg orally once a day [place] eCW: Jeff Kothari valsartan 1 tab(s) orally Active 320 mg orally once a da y [place] eC W: Jeff Kothari Fluticasone Propionate 1 spray (s) intranasally Active 50 mcg/inh intranasally once a day [place] eCW: Jeff Kothari Levocetirizine Dihydrochloride 1 tab(s) orally Active 5 mg orally once a day (in the evening) [place] eCW: Jeff Kothari Nifedical XL 1 tab(s) orally Active 60 mg orally once a day [place] eCW: Jeff Kothari Bystolic 1 tab(s) orally Active 20 mg orally once a day [place] eC W: Jeff Kothari Allergies, Adverse Reactions, Alerts Substance Category Reaction Severity Reaction type Status Date Reported Comments Source N.K.D.A. Adverse Reaction Info Not Available Adverse Reaction Active 02/18/2016 eCW: Jeff Kothari Immunizations No Data Provided for This Section Results No Data Provided for This Section Pathology Reports No Data Provided for This Section Diagnostic Reports No Data Provided for This Section Consultation Notes No Data Provided for This Section Discharge Summaries No Data Provided for This Section History and Physicals No Data Provided for This Section Vital Signs Vital Sign Value Date Comments Source Weight 213.8 02/18/2016 eCW: Jeff Kothari Height 68 1 eCW: Jeff Bedollata Diastolic (mm Hg) 78 02/18/2016 eCW: Jeff Bedollata Systolic (mm Hg) 162 02/18/2016 eCW: Jeff Kothari Weight 220 11/19/2015 eCW: Jeff Kothari Height 68 0 11/19/2015 eCW: Jeff MastSaniya Diastolic (mm Hg) 84 11/19/2015 eCW: Jeff MastSaniya Systolic (mm Hg) 160 11/19/2015 eCW: Jeff Kothari Weight 212.6 08/17/2015 eCW: Jeff Kothari Height 68 0 08/17/2015 eCW: Jeff MastSaniya Diastolic (mm Hg) 110 08/17/2015 eCW: Jeff MastSaniya Systolic (mm Hg) 150 08/17/2015 eCW: Jeff Kothari Weight 228.2 04/20/2015 eCW: Jeff Kothari Height 68 1 06/21/2014 eCW: Jeff MastSaniya Diastolic (mm Hg) 90 04/20/2015 eCW: Jeff MastSaniya Systolic (mm Hg) 126 04/20/2015 eCW: Jeff MastSaniya Weight 236 03/19/2015 eCW: Jeff Kothari Height 68 1 05/19/2014 eCW: Jeff MastSaniya Diastolic (mm Hg) 95 03/19/2015 eCW: Jeff MastSaniya Systolic (mm Hg) 150 03/19/2015 eCW: Jeff MastSaniya Weight 266 04/22/2013 eCW: Jeff Bedollata Height 68 1 06/23/2012 eCW: Jeff MastSaniya Diastolic (mm Hg) 84 04/22/2013 eCW: Jeff MastSaniya Systolic (mm Hg) 114 04/22/2013 eCW: Jeff MastSaniya Weight 224.6 04/02/2013 eCW: Jeff Bedollata Height 68 1 06/02/2012 eCW: Jeff MastSaniya Diastolic (mm Hg) 94 04/02/2013 eCW: Jeff MastSaniya Systolic (mm Hg) 126 04/02/2013 eCW: Jeff Kothari Encounters Location Location Details Encounter Type Encounter Number Reason For Visit Attending Provider ADM Date DC Date Status Source Jeff Kothari MD Unknown [id number] 04/02/2013 04/02/2013 eCW: Jeff Cruz MD Unknown [id number] 04/02/2013 04/02/2013 eCW: Jeff Cruz MD Unknown [id number] 04/02/2013 04/02/2013 eCW: Jeff Cruz MD Unknown [id number] 04/03/2013 04/03/2013 eCW: Jeff Cruz MD Unknown [id number] 04/03/2013 04/03/2013 eCW: Jeff Cruz MD Unknown [id number] 04/03/2013 04/03/2013 eCW: Jeff Cruz MD Unknown [id number] 04/03/2013 04/03/2013 eCW: Jeff Cruz MD Unknown [id number] 04/03/2013 04/03/2013 eCW: Jeff Cruz MD [facility] [id number] 04/22/2013 04/22/2013 eCW: Jeff Cruz MD [facility] [id number] 04/22/2013 04/22/2013 eCW: Jeff Cruz MD [facility] [id number] 04/22/2013 04/22/2013 eCW: Jeff Cruz MD [facility] [id number] 04/22/2013 04/22/2013 eCW: Jeff Cruz MD [facility] [id number] 04/22/2013 04/22/2013 eCW: Jeff Cruz MD [facility] [id number] 04/22/2013 04/22/2013 eCW: Jeff Cruz MD [facility] [id number] 04/22/2013 04/22/2013 eCW: Jeff Cruz MD 1 yr f/u [id number] 03/19/20 15 03/19/2015 eCW: Jeff Cruz MD 1 yr f/u [id number] 03/19/20 15 03/19/2015 eCW: Jeff Cruz MD 1 yr f/u [id number] 03/19/20 15 03/19/2015 eCW: Jeff Cruz MD 1 yr f/u [id number] 03/19/20 15 03/19/2015 eCW: Jeff Cruz MD 1 yr f/u [id number] 03/19/20 15 03/19/2015 eCW: Jeff Cruz MD 1 yr f/u [id number] 03/19/20 15 03/19/2015 eCW: Jeff Cruz MD 1 month (Reason: Diabetes) [id number] 04/20/2015 04/20/2015 eCW: Jeff Cruz MD 1 month (Reason: Diabetes) [id number] 04/20/2015 04/20/2015 eCW: Jeff Cruz MD 1 month (Reason: Diabetes) [id number] 04/20/2015 04/20/2015 eCW: Jeff Cruz MD 1 month (Reason: Diabetes) [id number] 04/20/2015 04/20/2015 eCW: Jeff Cruz MD 1 month (Reason: Diabetes) [id number] 04/20/2015 04/20/2015 eCW: Jeff Cruz MD 3 Months (Reason: Diabetes ) [id number] 08/17/2015 08/17/2015 eCW: Jeff Cruz MD 3 Months (Reason: Diabetes ) [id number] 08/17/2015 08/17/2015 eCW: Jeff Cruz MD 3 Months (Reason: Diabetes ) [id number] 08/17/2015 08/17/2015 eCW: Jeff Cruz MD 3 Months (Reason: Diabetes ) [id number] 08/17/2015 08/17/2015 eCW: Jeff Cruz MD 3 Months (Reason: Diabetes) [id number] 11/19/2015 11/19/2015 eCW: Jeff Cruz MD 3 Months (Reason: Diabetes) [id number] 11/19/2015 11/19/2015 eCW: Jeff Cruz MD 3 Months (Reason: Diabetes) [id number] 11/19/2015 11/19/2015 eCW: Jeff Cruz MD 3 Months (Reason: Diabete s) [id number] 02/18/2016 02/18/2016 eCW: Jeff Curz MD 3 Months (Reason: Diabete s) [id number] 02/18/2016 02/18/2016 eCW: Jeff Cruz MD 3nm x dm [id number] 05/19/19 17 05/19/2016 eCW: Jeff Kothari Procedures No Data Provided for This Section Assessment and Plan No Data Provided for This Section Plan of Care No Data Provided for This Section Social History Social History Date Source Social History ElementQualifiersDate Rep orted Language: . Japanese Feb 18, 2016 Marital Status: . Feb 18, 2016 Caffeine: yes. 3 c/day 1 coffee, 1 coke, 1 tea Feb 18, 2016 Exercise: no. Feb 18, 2016 Smoking/Tobacco Use: no. Patient is a: Former Smoker Quit 18 years ago Feb 18, 2016 Alcohol: socially. 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 02/18/2016 eCW: Jeff Kothari Family History Value Date S ource QualifierDescriptionCommentDate Reported Maternal Grand Mother colon cancer Apr 22, 2013 Paternal Grand Mother cancer Apr 22, 2013 Siblings alive 1 bro MR Apr 22, 2013 Maternal Grand Father Comment not available Apr 22, 2013 Children alive 1 daughter, 1 son Apr 22, 2013 Father alive heart disease Apr 22, 2013 Paternal Grand Father lung cancer Apr 22, 2013 Mother alive Comment not available Apr 22, 2013 05/15/2013 eCW: Jeff Kothari Advance Directives No Data Provided for This Section Functional Status No Data Provided for This Section
--- OUTSIDE RECORDS SUMMARY | 2019-12-19 12:32 | XMS REPORT | Clinical Summary ---
Author Author [facility] [employer] Organization [employer] Address Unknown Phone Unavailable Care Team Providers Care Gold Wheel Blocker And Polisher Name Role Phone Jose Francisco Santo MD PCP Allergies No Known Allergies Medications End Date Status Medication Sig Dispensed Refills Start Date Active aspirin (ECOTRIN LOW Take by 0 STRENGTH) 81 MG enteric mouth. coated tablet Active blood sugar diagnostic 1 strip 2 100 strip 11 strips strip test strips (two) times a 8 day. ONE TOUCH ULTRA Active insulin GLARGINE (LANTUS Inject 50 5 pen 2 0 SOLOSTAR U-100 INSULIN) Units under 8 100 unit/mL injection the skin (pen) daily. Active HUMALOG KWIKPEN INSULIN INJECT 15-20 12 pen 5 0 100 unit/mL injection pen UNITS 3 TIMES 8 A DAY BEFORE MEALS Active famotidine (PEPCID) 20 MG Take 1 tablet 180 tablet 1 tablet (20 mg total) 8 by mouth 2 (two) times a day. Active dulaglutide (TRULICITY) Inject 0.75 4 Syringe 5 0.75 mg/0.5 mL pen mg under the 8 injector skin every 7 days. Active levocetirizine (XYZAL) 5 Take 5 mg by 3 12/05 MG tablet mouth every 8 evening. Active FARXIGA 10 mg tablet TAKE 1 TABLET 30 tablet 2 BY MOUTH 8 EVERY DAY Active BD ULTRA-FINE JAMIE PEN USE 100 each 11 NEEDLE 32 gauge x 5/32" DIRECTED 3 8 needle TIMES A DAY BEFORE MEALS Active LANTUS SOLOSTAR U-100 INJECT 30 6 pen 5 01/ INSULIN 100 unit/mL UNITS UNDER 9 injection (pen) THE SKIN 2 (TWO) TIMES A DAY. Active LANTUS SOLOSTAR U-100 INJECT 30 3 pen 11 INSULIN 100 unit/mL UNITS UNDER 9 injection (pen) THE SKIN 2 (TWO) TIMES A DAY. Active telmisartan-hydrochloroth TAKE 1 TABLET 90 tablet 1 iazid (MICARDIS HCT) BY MOUTH 9 80-25 mg per tablet EVERY DAY Active FARXIGA 10 mg tablet TAKE 1 TABLET 90 tablet 1 BY MOUTH 9 EVERY DAY Active atorvastatin (LIPITOR) 20 TAKE 1 TABLET 90 tablet 1 MG tablet BY MOUTH 9 EVERY DAY Active clopidogrel (PLAVIX) 75 TAKE 1 TABLET 90 tablet 3 mg tablet BY MOUTH 9 DAILY Active Problems Problem Noted Date Biceps tendinitis of right shoulder 12/04/2017 Superior glenoid labrum lesion of right shoulder Impingement syndrome of right shoulder 11/20/2017 Chronic right shoulder pain 11/06/2017 Rotator cuff tendonitis, right 11/06/2017 Erectile dysfunction 10/18/2017 CAD (coronary artery disease) 09/06/2017 Allergic bronchitis 08/31/2017 Well adult exam 08/31/2017 Chest pain 08/21/2017 Overview: Added automatically from [facility] [id number] Obesity (BMI 30-39.9) 07/13/2017 Other hyperlipidemia 07/13/2017 Type 2 diabetes mellitus without complication, with l cirilo-term current use 07/13/2017 of insulin Overview: dx appx 2013; poor adherence to diet an d meds Coronary artery disease involving [place] coronary art oscar of [place] heart 07/13/2017 without angina pectoris Benign hypertensive heart disease without congestive heart failure 07/13/2017 Overview: htn dx 2002; CAD dx 2016 History of pneumococcal vaccination 07/13/2017 Right shoulder tendinitis 07/13/2017 Stented coronary artery JEIMY (obstructive sleep apnea) Family History Medical History Relation Name Comments CABG/Stent Father Heart disease Father No Known Problems Mother Relation Name Status Comments Father Mother Social History Date Tobacco Use Types Packs/Day Years Used 1984 - 10/2016 Former Smoker Cigarettes 1 Smokeless Tobacco: Never Used Drinks/Week oz/Week Comments Alcohol Use Yes Sex Assigned at Date Recorded Not on file Industry Job Start Date Occupation Not on file Not on file Not on file Travel End Travel History Travel Start No recent travel history available. Last Filed Vital Signs Not on file Plan of Treatment Health Maintenance Due Date Last Done Comments DIABETIC FOOT EXAM 08/31/2018 08/31/2017 URINE MICROALBUMIN 09/03/2018 09/03/2017 COLONOSCOPY SCREENING 2018 SHINGLES VACCINES (#1) 2018 DIABETIC RETINAL EYE EXAM 10/10/2019 10/09/2017 INFLUENZA VACCINE 01/06/2020 Implants Device Identifier Shelf Expiration Date Model / Serial / L ot Implanted Type Area Manufactur er 06/04/2018 [id number] / / [id number] Stent Coronary Syst Synergy (Mr) Coronary N/A: N/A BSC 3.00mm X 16mm - [id number] Stents INTERVENTI Implanted: 09/06/2017 at [facility] (Quantity not on file) CARDIOLOGY Results Not on fileafter 12/18/2018 Advance Directives For more information, please contact: [phone] 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
--- OUTSIDE RECORDS SUMMARY | 2019-12-19 12:32 | XMS REPORT ---
Author Author Jay Guthrie Organization [employer] Address Unknown Phone Unavailable Care Team Providers Care Movie Actor Name Role Phone Sony Guthrie CP Unavailable Allergies, Adverse Reactions, Alerts Substance Reaction Event Type N.K.D.A. Info Not Available Non Drug Allergy Encounters Encounter Location Date 1 month (Reason: Diabetes) Jeff Kothari MD Apr 20 15 Unknown Jeff Kothari MD Apr 02, 2013 [facility] Jeff Kothari MD Apr 22, 2013 1 yr f/u Jeff Kothari MD Mar 19, 2015 Problems Problem Type Condition ICD-9 Code Onset Dates Condition Statu s Problem Diabetes Type 2 Uncontrolled 250.02 Active Problem BMI 35.0-35.9,adult Z68.35 Active Problem HEADACHE SYNDROME NEC 339.89 Active Problem Paresthesia of lower extremity R20.2 Active Assessment Erectile dysfunction N52.9 Active Problem Type 2 diabetes mellitus with diabetic neuropathy E11. 40 Active Assessment BMI 35.0-35.9,adult Z68.35 Active Assessment Encounter for screening for malignant neoplasm of pros [place] Z12.5 Active Problem Erectile dysfunction N52.9 Active Problem Hyperlipidemia, mixed E78.2 Active Problem BMI 38.0-38.9,adult Z68.38 Active Problem Type 2 diabetes mellitus with hyperglycemia E11.65 Active Problem Essential (primary) hypertension I10 Active Assessment Essential (primary) hypertension I10 Active Assessment Type 2 diabetes mellitus with diabetic neuropathy E11. 40 Active Assessment Paresthesia of lower extremity R20.2 Active Assessment Hyperlipidemia, mixed E78.2 Active Problem Abnormal electrocardiogram [ECG] [EKG] 794.31 Active Problem Hyperlipidemia 272.4 Active Assessment Type 2 diabetes mellitus with hyperglycemia E11.65 Active Problem Hypertension 401.1 Active Problem Chest Pain 786.50 Active Problem Obesity, unspecified 278.00 Active Medications Medication Code System Code Instructions Start Date End Date Status Dosage Xigduo XR MULTUM 125786 10 mg-1000 mg orally once a day (in the morning) Active 1 tab(s) Pioglitazone Hydrochloride MULTUM 517686 15 mg orally once a day Active 1 tab(s) hydrochlorothiazide-valsartan MULTUM 79921 25 mg-320 mg orally once a day Active 1 tab(s) BD Ultrafine Stephanie Pen [place] Unknown 0 4mm x 32G as directe d tid qac Active as directed OneTouch Ultra Test Strip MULTUM 3565398 - check blood s ugars 3 times daily Mar 19, 2015 Active as directed Trulicity Pen MULTUM 511878 1.5 mg/0.5 mL subcutaneousl y once a week Mar 19, 2015 Active 1.5 mg Trulicity Pen MULTUM 097339 1.5 mg/0.5 mL subcutaneously once a week Active 1.5 mg Aspir 81 MULTUM 908364 81 mg orally once a day Mar 19, 2015 Ac tive 1 tab(s) OneTouch Delica Lancets 30g MULTUM 3337143 - check blood sugar s 3 times a day Active as directed OneTouch Delica Lancets 30g MULTUM 0888877 - check blood sugars 3 times a day Mar 19, 2015 Active as directed atenolol MULTUM 68566 100 mg orally once a day Mar 19, 2015 A ctive 1 tab(s) Xigduo XR MULTUM 301217 10 mg-1000 mg orally once a day (in the morning) Mar 19, 2015 Active 1 tab(s) atenolol MULTUM 65516 100 mg orally once a day Active 1 tab(s) Lantus Solostar Pen MULTUM 518731 100 units/ml subcutaneously at bedtime Active 30 units Cialis MULTUM 66663 5 mg orally once a day Apr 20, 2015 Acti ve 1 tab(s) atorvastatin MULTUM 18012 20 mg orally once a day (at bedtime) Active 1 tab(s) Aspir 81 MULTUM 602470 81 mg orally once a day Active 1 tab(s) Humalog KwikPen MULTUM 843560 100 units/ml subcutaneously tid qac Active 16 units OneTouch Ultra Test Strip MULTUM 2713230 - check blood sugars 3 t imes daily Active as directed Pioglitazone Hydrochloride MULTUM 276082 15 mg orally once a day Mar 19, 2015 Active 1 tab(s) Social History Social History Element Qualifiers Date Reported Language: . Mauritanian Apr 20, 2015 Marital Status: . Apr 20, 2015 Caffeine: yes. 3 c/day 1 coffee, 1 coke, 1 tea D ec 2014 Exercise: no. Apr 20, 2015 Smoking/Tobacco Use: no. Patient is a: Former Smoker Quit 1 8 years ago Apr 20, 2015 Alcohol: socially. 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
--- OUTSIDE RECORDS SUMMARY | 2019-12-19 12:33 | XMS REPORT ---
Author Author Jay Kothari [facility] [employer] Address Unknown Phone Unavailable Care Team Providers Care Manager Alliance Name Role Phone Judy Kothari Unavailable Encounters Encounter Location Date 1 month (Reason: Diabetes) Jeff Kothari MD Apr 20 15 3 Months (Reason: Diabetes ) Jeff Kothari MD August 17, 2015 3 Months (Reason: Diabetes) Jeff Kothari MD November 19, 2015 3 Months (Reason: Diabete s) Jeff Kothari MD Feb 17 16 Unknown Jeff Kothari MD Apr 02, 2013 [facility] Jeff Kothari MD Apr 22, 2013 1 yr f/u Jeff Kothari MD Mar 19, 2015 3nm x dm Jeff Kothari MD May 19, 2016 Problems Problem Type Condition ICD-9 Code Onset [...] 794.31 Active Problem Hyperlipidemia 272.4 Active Assessment No-show for appointment Z53.29 Acti ve Problem Chest Pain 786.50 Active Problem Diabetes Type 2 Uncontrolled 250.02 Active Problem HEADACHE SYNDROME NEC 339.89 Active Problem Hypertension 401.1 Active Problem BMI 35.0-35.9,adult Z68.35 Active Problem Obesity, unspecified 278.00 Active Problem BMI 38.0-38.9,adult Z68.38 Active Social History Social History Element Qualifiers Date Reported Language: . Micronesian Feb 18, 2016 Marital Status: . Feb 18, 2016 Caffeine: yes. 3 c/day 1 coffee, 1 coke, [address] Exercise: no. Feb 18, 2016 Smoking/Tobacco Use: no. Patient is a: Former Smoker Quit 1 8 years ago Feb 18, 2016 Alcohol: socially. 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
--- OUTSIDE RECORDS SUMMARY | 2019-12-19 12:33 | XMS REPORT ---
Author Author Jay Kothari [facility] eClinicalWorks Address Unknown Phone Unavailable Care Team Providers Care Flat Hammerer Name Role Phone Judy Kothari Unavailable Allergies, Adverse Reactions, Alerts Substance Reaction Event Type N.K.D.A. Info Not Available Non Drug Allergy Encounters Encounter Location Date 1 month (Reason: Diabetes) Jeff Kothari MD Apr 20 3 Months (Reason: Diabetes ) Jeff Kothari [...] Code Onset Dates Condition Statu s Assessment Sinusitis J32.9 Active Assessment Encounter for screening for malignant neoplasm of pros peacock Z12.5 Active Assessment BMI 35.0-35.9,adult Z68.35 Active Assessment Erectile dysfunction N52.9 Active Problem BMI 35.0-35.9,adult Z68.35 Active Assessment Paresthesia of lower extremity R20.2 Active Problem BMI 38.0-38.9,adult Z68.38 Active Assessment Syncope R55 Active Problem Hyperlipidemia, mixed E78.2 Active Problem Type 2 diabetes mellitus with hyperglycemia E11.65 Active Problem Essential (primary) hypertension I10 Active Problem Syncope R55 Active Problem Encounter for screening for malignant neoplasm of pros peacock Z12.5 Active Assessment Essential (primary) hypertension I10 Active Assessment Hyperlipidemia, mixed E78.2 Active Problem CAD (coronary artery disease) I25.10 Active Assessment CAD (coronary artery disease) I25.10 Active Problem Paresthesia of lower extremity R20.2 Active Problem Type 2 diabetes mellitus with diabetic neuropathy E11. 40 Active Problem Sinusitis J32.9 Active Problem Erectile dysfunction N52.9 Active Problem Abnormal electrocardiogram [ECG] [EKG] 794.31 Active Problem Hyperlipidemia 272.4 Active Assessment Type 2 diabetes mellitus with hyperglycemia E11.65 Active Problem Chest Pain 786.50 Active Problem Diabetes Type 2 Uncontrolled 250.02 Active Problem HEADACHE SYNDROME NEC 339.89 Active Problem Hypertension 401.1 Active Problem Obesity, unspecified 278.00 Active Medications Medication Code System Code Instructions Start Date End Date Status Dosage Fluticasone Propionate MULTUM 36460 50 mcg/inh intranasally onc e a day Active 1 spray(s) Levocetirizine Dihydrochloride MULTUM 722323 5 mg orally once a day (in the evening) Active 1 tab(s) AmLODIPine Besylate MULTUM 528523 5 mg orally once a day Active 1 tab(s) Xigduo XR MULTUM 643850 10 mg-1000 mg orally once a day (in the morning) Active 1 tab(s) Aspir 81 MULTUM 971243 81 mg orally once a day Active 1 tab(s) Nifedical XL MULTUM 60199 60 mg orally once a day Act baljit 1 tab(s) Lantus Solostar Pen MULTUM 019845 100 units/ml subcutaneously at bedtime Active 24 units Levocetirizine Dihydrochloride MULTUM 116145 5 mg orally once a day (in the evening) Active 1 tab(s) atenolol-chlorthalidone MULTUM 62153 100 mg-25 mg orally once a day Active 1 tab(s) Bystolic MULTUM 416910 20 mg orally once a day Active 1 tab(s) valsartan MULTUM 77893 320 mg orally once a day August 17, 2015 Active 1 tab(s) OneTouch Ultra Test Strip MULTUM 3869349 - check blood sugars 3 t imes daily Active as directed valsartan MULTUM 82813 320 mg orally once a day Activ e 1 tab(s) BD Ultrafine Stephanie Pen [place] Unknown 0 4mm x 32G as directe d tid qac Active as directed Humalog KwikPen MULTUM 893286 100 units/ml subcutaneously tid qac Active 12 units AmLODIPine Besylate MULTUM 110885 5 mg orally once a day August 052015 Active 1 tab(s) Fluticasone Propionate MULTUM 14722 50 mcg/inh intrana johnnie once a day November 19, 2015 Active 1 spray(s) Pioglitazone Hydrochloride MULTUM 359253 15 mg orally once a day Active 1 tab(s) OneTouch Delica Lancets 30g MULTUM 1752307 - check blood sugar s 3 times a day Active as directed atenolol-chlorthalidone MULTUM 51852 100 mg-25 mg oral ly once a day August 17, 2015 Active 1 tab(s) atorvastatin MULTUM 64113 20 mg orally once a day (at bedtime) Active 1 tab(s) Trulicity Pen MULTUM 302613 1.5 mg/0.5 mL subcutaneously once a week Active 1.5 mg Social History Social History Element Qualifiers Date Reported Language: . Turkmen Feb 18, 2016 Marital Status: . Feb 18, 2016 Caffeine: yes. 3 c/day 1 coffee, 1 coke, 1 tea O 2015 Exercise: no. Feb 18, 2016 Smoking/Tobacco Use: no. Patient is a: Former Smoker Quit 1 8 years ago Feb 18, 2016 Alcohol: socially. 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
--- OUTSIDE RECORDS SUMMARY | 2019-12-19 12:33 | XMS REPORT ---
Author Author Jay Guthrie Organization eClinicalWorks Address Unknown Phone Unavailable Care Team Providers Care Linux Network Engineer Name Role Phone Sony Guthrie Unavailable Allergies, Adverse Reactions, Alerts Substance Reaction Event Type N.K.D.A. Info Not Available Non Drug Allergy Encounters Encounter Location Date 1 month (Reason: Diabetes) Jeff Kothari MD Apr 20 3 Months (Reason: Diabetes ) Jeff Kothari MD August 17, 2015 3 Months (Reason: Diabetes) Jeff Kothari MD November 19, 2015 Unknown Jeff Kothari MD Apr 02, 2013 CGMS Jeff Kothari MD Apr 22, 2013 1 yr f/u Jeff Kothari MD Mar 19, 2015 Problems Problem Type Condition ICD-9 Code Onset Dates Condition Statu s Problem Hypertension 401.1 Active Assessment Sinusitis J32.9 Active Problem Obesity, unspecified 278.00 Active Assessment Encounter for screening for malignant neoplasm of pros peacock Z12.5 Active Problem Diabetes Type 2 Uncontrolled 250.02 Active Problem BMI 35.0-35.9,adult Z68.35 Active Problem HEADACHE SYNDROME NEC 339.89 Active Problem Paresthesia of lower extremity R20.2 Active Problem Type 2 diabetes mellitus with diabetic neuropathy E11. 40 Active Assessment Paresthesia of lower extremity R20.2 Active Assessment Erectile dysfunction N52.9 Active Problem Erectile dysfunction N52.9 Active Assessment BMI 35.0-35.9,adult Z68.35 Active Problem Hyperlipidemia, mixed E78.2 Active Problem BMI 38.0-38.9,adult Z68.38 Active Problem Type 2 diabetes mellitus with hyperglycemia E11.65 Active Problem Essential (primary) hypertension I10 Active Assessment Hyperlipidemia, mixed E78.2 Active Assessment Essential (primary) hypertension I10 Active Assessment Syncope R55 Active Assessment CAD (coronary artery disease) I25.10 Active Problem Abnormal electrocardiogram [ECG] [EKG] 794.31 Active Problem Hyperlipidemia 272.4 Active Assessment Type 2 diabetes mellitus with hyperglycemia E11.65 Active Problem Chest Pain 786.50 Active Medications Medication Code System Code Instructions Start Date End Date Status Dosage AmLODIPine Besylate MULTUM 675151 5 mg orally once a day August 052015 Active 1 tab(s) Fluticasone Propionate MULTUM 20738 50 mcg/inh intrana johnnie once a day November 19, 2015 Active 1 spray(s) OneTouch Delica Lancets 30g MULTUM 3444058 - check blood sugar s 3 times a day Active as directed Humalog KwikPen MULTUM 208692 100 units/ml subcutaneously tid qac Active 12 units AmLODIPine Besylate MULTUM 404687 5 mg orally once a day Active 1 tab(s) Aspir 81 MULTUM 293877 81 mg orally once a day Active 1 tab(s) atenolol-chlorthalidone MULTUM 69501 100 mg-25 mg oral ly once a day August 17, 2015 Active 1 tab(s) OneTouch Ultra Test Strip MULTUM 7502198 - check blood sugars 3 t imes daily Active as directed atorvastatin MULTUM 78881 20 mg orally once a day (at bedtime) Active 1 tab(s) Lantus Solostar Pen MULTUM 145417 100 units/ml subcutaneously at bedtime Active 24 units Pioglitazone Hydrochloride MULTUM 080731 15 mg orally once a day Active 1 tab(s) atenolol-chlorthalidone MULTUM 38754 100 mg-25 mg orally once a day Active 1 tab(s) valsartan MULTUM 57739 320 mg orally once a day Activ e 1 tab(s) Xigduo XR MULTUM 973545 10 mg-1000 mg orally once a day (in the morning) Active 1 tab(s) BD Ultrafine Stephanie Pen [place] Unknown 0 4mm x 32G as directe d tid qac Active as directed valsartan MULTUM 24989 320 mg orally once a day August 17, 2015 Active 1 tab(s) Levocetirizine Dihydrochloride MULTUM 838131 5 mg orally once a day (in the evening) November 19, 2015 Active 1 tab(s) Trulicity Pen MULTUM 297424 1.5 mg/0.5 mL subcutaneously once a week Active 1.5 mg Social History Social History Element Qualifiers Date Reported Language: . Kuwaiti November 19, 2015 Marital Status: . November 19, 2015 Caffeine: yes. 3 c/day 1 coffee, 1 coke, 1 tea J 2015 Exercise: no. November 19, 2015 Smoking/Tobacco Use: no. Patient is a: Former Smoker Quit 1 8 years ago November 19, 2015 Alcohol: socially. 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
--- OUTSIDE RECORDS SUMMARY | 2019-12-19 12:33 | XMS REPORT ---
Author Author Jay Guthrie Organization eClinicalWorks Address Unknown Phone Unavailable Care Team Providers Care Observation Nurse Name Role Phone Sony Guthrie Unavailable Allergies, Adverse Reactions, Alerts Substance Reaction Event Type N.K.D.A. Info Not Available Non Drug Allergy Encounters Encounter Location Date 1 month (Reason: Diabetes) Jeff Kothari MD Apr 20 3 Months (Reason: Diabetes ) Jeff Kothari MD August 17, 2015 Unknown Jeff Kothari MD Apr 02, [...] 40 Active Assessment BMI 35.0-35.9,adult Z68.35 Active Problem Erectile dysfunction N52.9 Active Problem [...] Instructions Start Date End Date Status Dosage Cialis MULTUM 90162 5 mg orally once a day Inactive 1 tab(s) hydrochlorothiazide-valsartan MULTUM 46553 25 mg-320 mg orally once a day Inactive 1 tab(s) Humalog KwikPen MULTUM 709077 100 units/ml subcutaneously tid qac Active 12 units OneTouch Ultra Test Strip MULTUM 2950012 - check blood sugars 3 t imes daily Active as directed OneTouch Ultra Test Strip MULTUM 8430589 - check blood sugars 3 t imes daily Active as directed Xigduo XR MULTUM 159670 10 mg-1000 mg orally once a day (in the morning) Active 1 tab(s) OneTouch Delica Lancets 30g MULTUM 3614027 - check blood sugar s 3 times a day Active as directed Lantus Solostar Pen MULTUM 443089 100 units/ml subcutaneously at bedtime Active 24 units Aspir 81 MULTUM 199087 81 mg orally once a day Active 1 tab(s) Cialis MULTUM 21683 5 mg orally once a day Apr 20, 2015 Acti ve 1 tab(s) valsartan MULTUM 64502 320 mg orally once a day August 17, 2015 Active 1 tab(s) atenolol-chlorthalidone MULTUM 21516 100 mg-25 mg oral ly once a day August 17, 2015 Active 1 tab(s) Pioglitazone Hydrochloride MULTUM 945935 15 mg orally once a day Active 1 tab(s) Trulicity Pen MULTUM 441043 1.5 mg/0.5 mL subcutaneously once a week Active 1.5 mg BD Ultrafine Stephanie Pen [place] Unknown 0 4mm x 32G as directe d tid qac Active as directed atorvastatin MULTUM 64360 20 mg orally once a day (at bedtime) Active 1 tab(s) atenolol MULTUM 58691 100 mg orally once a day Inacti ve 1 tab(s) AmLODIPine Besylate MULTUM 235374 5 mg orally once a day August 052015 Active 1 tab(s) OneTouch Delica Lancets 30g MULTUM 5698618 - check blood sugar s 3 times a day Active as directed Social History Social History Element Qualifiers Date Reported Language: . Divehi November 19, 2015 Marital Status: . November 19, 2015 Caffeine: yes. 3 c/day 1 coffee, 1 coke, 1 tea J anisha 2015 Exercise: no. November 19, 2015 Smoking/Tobacco Use: no. Patient is a: Former Smoker Quit 1 8 years ago November 19, 2015 Alcohol: socially. 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
--- OUTSIDE RECORDS SUMMARY | 2019-12-19 12:33 | XMS REPORT | Continuity of Care Document ---
Author Author [facility] t Organization [facility] Address [address] [place] [address] Phone Unavailable Care Team Providers Care Asw Specialist Name Role Phone JULIA WHITING, [place] PCP Lizette HUMPHREYS Attphys Unavailable DUMONT, SOUHEIL Attphys Unavailable Rehana Medel Attphys Unavailable Yariel WHITING, Javad Paez Attphys [phone] Megan LOPEZ Attphys Unavailable CLEMENT, PURUSHOTTAM BHAGWAT Attphys Unavailable DUMONT, SOUHEIL Admphys Unavailable CLEMENT, PURUSHOTTAM BHAGWAT Admphys Unavailable Payers Payer Name Policy Type Policy Number Effective Date Expiration Date Lizette carmona [facility] [id number] 2015 00:00:00 GERMAINE Elias - [facility] Problems Condition Name Condition Details Condition Category Status Onset Date Resolution Date Last Treatment Date Treating Clinician Comments Source Biceps tendinitis of right shoulder Biceps tendinitis of right s [place] Disease Active 2017-12-04 00:00:00 James reed Religion Superior glenoid labrum lesion of right shoulder Super ior glenoid labrum lesion of right shoulder Disease Active 2017-12-04 00:00:00 dAal Religion Impingement syndrome of right shoulder Impingement syndrome of right shoulder Disease Active 2017-11-20 00:00:00 Adal Colon Chronic right shoulder pain Chronic right shoulder pain Disease Active 2017-11-06 00:00:00 Adal Hayesist Rotator cuff tendonitis, right Rotator cuff tendonitis, right Disea se Active 2017-11-06 00:00:00 Adal Colon Erectile dysfunction Erectile dysfunction Disease Active 00:00:00 Adal Colon CAD (coronary artery disease) CAD (coronary artery disease) Disease Active 2017-09-06 00:00:00 Adal Colon Allergic bronchitis Allergic bronchitis Disease Active 2017-08-31 00:00 :00 Adal Colon Well adult exam Well adult exam Disease Active 2017-08-31 00:00:00 Adal Colon Chest pain Chest pain Disease Active 2017-08-21 00:00:00 Overview: Added automatically from request for surgery [id number] Adal Colon Obesity (BMI 30-39.9) Obesity (BMI 30-39.9) Disease Active 12-07-08 00:00:00 Adal Springer t Other hyperlipidemia Other hyperlipidemia Disease Active 00:00:00 Adal Colon Type 2 diabetes mellitus without complic ation, with long-term current use of insulin Type 2 diabetes mellitus without complic ation, with long-term current use of insulin Disease Active 2017-07-13 00:00:00 Overview: dx appx 2014; poor adherence to diet and meds Adal Colon Coronary artery disease involving [place] coronary artery of [place] heart without angina pectoris Coronary artery disease involving [place] coronary artery of [place] heart without angina pectoris Disease Active 2017-07-13 00:00:00 Adal Colon Benign hypertensive heart disease without congestive h eart failure Benign hypertensive heart disease without congestive heart failure Disease Active 2017-07-13 00:00:00 Overview: htn dx 2003 ; CAD dx 2016 Adal Colon History of pneumococcal vaccination History of pneumococcal vacc ination Disease Active 2017-07-13 00:00:00 [place] [employer] Right shoulder tendinitis Right shoulder tendinitis Disease Ac tive 2017-07-13 00:00:[address] Pneumonia Pneumonia Disease Active 2016-10-12 00:00:00 [facility] Syncope Syncope Disease Active 2015-10-25 00:00:00 [facility] Chest pain Chest pain Disease Active 2015-10-25 00:00:00 [facility] Non-ST elevation (NSTEMI) myocardial infarction Non-ST MAHNAZ (non-ST elevated myocardial infarction) Problem Active C [facility] Stented coronary artery Stented coronary artery Disease Active [place] [facility] JEIMY (obstructive sleep apnea) JEIMY (obstructive sleep apnea) Disease Active [place] [facility] Hyperlipidemia, mixed Hype rlipidemia, mixed Active Problem 10/27/2016 eCW: Jeff Kothari Problem Active 2016-10-27 02: 00:11 Elodia Butcher Type 2 diabetes mellitus with hyperglycemia Type 2 diabetes mellitus with hyperglycemia Active Problem 10/27/2016 eCW: Jeff Bedollata Problem Active 2016-10-27 02:00:11 Elodia Butcher Essential (primary) hypertension Essential (primary) hypertension Active Problem 10/27/2016 eCW: Jeff Kothari Problem Active 2016-10-27 02:00:11 Elodia Butcher Syncope Sync ope Active Problem 10/27/2016 eCW: Jeff Kothari Problem Active 2016-10-27 02:00:11 Glenn Butcher Encounter for screening for malignant neoplasm of pros peacock Encounter for screening for malignant neoplasm of prostate Active Problem 10/27/2016 eCW: Jeff Kothari Problem Active 2016-10-27 02:00:11 Elodia Butcher CAD (coronary artery disease) CAD (coronary artery disease) Active Problem 10/27/2016 eCW: Jeff Kothari Problem Active 2016-10-27 02:00:11 Elodia Butcher Paresthesia of lower extremity Paresthesia of lower extremity Active Problem 10/27/2016 eCW: Jeff Kothari Problem Active 2016-10-27 02:00:11 Elodia Butcher Type 2 diabetes mellitus with diabetic neuropathy Type 2 diabetes mellitus with diabetic neuropathy Active Problem 10/27/2016 eCW: Jeff Kothari Problem Active 2016-10-27 02:00:11 Glenn Butcher Sinusitis Sinu sitis Active Problem 10/27/2016 eCW: Jeff Kothari Problem Active 2016-10-27 02:00:11 Elodia Butcher Erectile dysfunction Erec tile dysfunction Active Problem 10/27/2016 eCW: Jeff Kothari Problem Active 2016-10-27 02:00:11 Elodia Butcher Abnormal electrocardiogram [ECG] [EKG] Abnormal electrocardiogram [ECG] [EKG] Active Problem 10/27/2016 eCW: Jfef Kothari Problem Active 2016-10-27 02:00:11 Elodia Butcher Hyperlipidemia Hype rlipidemia Active Problem 10/27/2016 eCW: Jeff Kothari Problem Active 2016-10-27 02:00:11 Elodia Butcher Chest Pain Ches t Pain Active Problem 10/27/2016 eCW: Jeff Kothari Problem Active 2016-10-27 02:00:11 [facility] Diabetes Type 2 Uncontrolled D iabetes Type 2 Uncontrolled Active Problem 10/27/2016 eCW: Jeff Kothari Problem Active 2016-10-27 02:00:11 [facility] HEADACHE SYNDROME NEC HEAD ACHE SYNDROME NEC Active Problem 10/27/2016 eCW: Jeff Kothari Problem Active 2016-10-27 02: 00:11 [facility] Hypertension Hype rtension Active Problem 10/27/2016 eCW: Jeff Kothari Problem Active 2016-10-27 02:00:11 [facility] BMI 35.0-35.9,adult BMI 35.0-35.9,adult Active Problem 10/27/2016 eCW: Jeff Kothari Problem Active 2016-10-27 02:00:11 [facility] Obesity, unspecified Obes ity, unspecified Active Problem 10/27/2016 eCW: Jeff Kothari Problem Active 2016-10-27 02: 00:11 [facility] BMI 38.0-38.9,adult BMI 38.0-38.9,adult Active Problem 10/27/2016 eCW: Jeff Kothari Problem Active 2016-10-27 02:00:11 [facility] No-show for appointment No-s how for appointment Active Diagnosis 06/17/2016 eCW: Jeff Kothari Diagnosis Active 2016-06-17 03:25:39 [facility] Allergies, Adverse Reactions, Alerts Allergy Name Allergy Type Status Severity Reaction(s) Onset Date Inacti ve Date Treating Clinician Comments Source N.K.D.A. N.K.D.A. Active Info Not Available 2016-02-18 00:00:00 [facility] Family History Family Member Diagnosis Comments Start Date Stop Date Source Natural father Heart disease [facility] Natural father Stroke [facility] Natural father CABG/Stent [facility]ist Natural father Heart disease [place] [facility] Maternal grandfather Cancer [facility] Natural mother Stroke [facility] Natural mother No Known Problems Leann timbo Religion Paternal grandfather Cancer [facility] Unknown Family Member Family History 2013-05-15 04:51:59 2 04:51:59 [facility] Social History Social Habit Start Date Stop Date Quantity Comments Source History of tobacco use Current smoker Adal Colon Sex Assigned At Leann izquierdo Religion Cigarettes smoked current (pack per day) - Reported 00:00:00 2018-04-10 00:00:00 Adal Colon Alcohol intake 2018-04-10 00:00:00 2018-04-10 00:00:00 Current drinker of alcohol (finding) Adal Colon Language: 2016-02-18 00:00:00 2016-02-18 00:00:00 [facility] Smoking Status Start Date Stop Date Source Former smoker 2018-04-10 00:00:00 2018-04-10 00:00:00 Adal Colon Current every day smoker 2016-10-18 00:00:00 [facility] Medications Ordered Medication Name Filled Medication Name Start Date Stop Da te Current Medication? Ordering Clinician Indication Dosage Frequency Signature (SIG) Comments Components Source atorvastatin (LIPITOR) 20 MG tablet 2018-07-01 00:00:00 Yes TAKE 1 TABLET BY MOUTH EVERY DAY Adal mauricio clopidogrel (PLAVIX) 75 mg tablet 2018-07-01 00:00:00 Yes TAKE 1 TABLET BY MOUTH DAILY Adal Colon FARXIGA 10 mg tablet 2018-06-24 00:00:00 Yes TAKE 1 TABLET BY MOUTH EVERY DAY Adal Colon telmisartan-hydrochlorothiazid (MICARDIS HCT) 80-25 mg per t ablet 2018-05-27 00:00:00 Yes TAKE 1 TABLET BY MOUTH EVERY DAY Adal Colon LANTUS SOLOSTAR U-100 INSULIN 100 unit/mL injection (pen) 2018-05-14 00:00:00 Yes INJECT 30 UNITS UNDER THE SKIN 2 (TWO) TIMES A DAY. Adal Colon LANTUS SOLOSTAR U-100 INSULIN 100 unit/mL injection (pen) 2018-05-13 00:00:00 Yes INJECT 30 UNITS UNDER THE SKIN 2 (TWO) TIMES A DAY. Adal Colon aspirin (ECOTRIN LOW STRENGTH) 81 MG enteric coated tablet 2018-03-05 09:55:43 Yes Take by mouth. Mike Colon BD ULTRA-FINE STEPHANIE PEN NEEDLE 32 gauge x 5/32" needle 2018-02-08 00:00:00 Yes USE DIRECTED 3 TIMES A DAY BEFORE JANINE LS Adal Colon FARXIGA 10 mg tablet 2018-01-29 00:00:00 Yes TAKE 1 TABLET BY MOUTH EVERY DAY Adal Colon levocetirizine (XYZAL) 5 MG tablet 2017-12-05 00:00:00 Yes 5mg QD Take 5 mg by mouth every evening. Adal amos insulin GLARGINE (LANTUS SOLOSTAR U-100 INSULIN) 100 unit/mL injection (pen) 2017-11-29 00:00:00 Yes 50U QD Inject 50 Units un negrita the skin daily. Adal Colon HUMALOG KWIKPEN INSULIN 100 unit/mL injection pen 2017-11-29 00:00:00 Yes INJECT 15-20 UNITS 3 TIMES A DAY BEFORE MEALS Adal Colon famotidine (PEPCID) 20 MG tablet 2017-11-29 00:00:00 Yes 20mg Q.5D Take 1 tablet (20 mg total) by mouth 2 (two) times a day. Adal Colon dulaglutide (TRULICITY) 0.75 mg/0.5 mL pen injector 11-29 00:00:00 Yes .75mg Q1W Inject 0.75 mg under the skin every 7 da ys. Adal Colon blood sugar diagnostic strips strip test strips 2017-11-01 00:00 :00 Yes 1{strip} Q.5D 1 strip 2 (two) times a day. ONE TOUCH ULTRA Adal Colon Xigduo XR 2016-10-26 00:00:00 Yes Judy Kothari 1 tab(s) [facility] Synjardy 2016-10-26 00:00:00 Yes Judy Kothari 1 tab(s) [facility] ticagrelor (BRILINTA) 90 mg Tab tablet 2016-10-18 00:00:00 Yes 90mg Q.5D Take 1 tablet (90 mg total) by mouth 2 (two) times daily. [facility] Missing or Non-Formulary Medication 2016-10-14 16:25:24 Yes 1.5mg Q7D Inject 1.5 mg subcutaneously once a week Trulicity (dulaglutide). Patient takes once a week on Saturdays. . [facility] levocetirizine (XYZAL) 5 MG tablet 2016-10-12 13:27:30 Yes 5mg QD Take 5 mg by mouth every evening. [facility] NIFEdipine (PROCARDIA-XL) 60 MG (OSM) 24 hr tablet 2016-10 13:27:30 Yes 60mg QD Take 60 mg by mouth every evening. [facility] atorvastatin 2016-02-25 02:33:29 Yes Judy Kothari 1 tab(s) [facility] Lantus Solostar Pen 2016-02-25 02:33:29 Yes Judy song 24 units [facility] Humalog KwikPen 2016-02-25 02:33:29 Yes Judy Kothari 12 units [facility] Xigduo XR 2016-02-25 02:33:29 Yes Judy Kothari 1 tab(s) [facility] Pioglitazone Hydrochloride 2016-02-25 02:33:29 Yes Judy Kothari 1 tab(s) [facility] BD Ultrafine Stephanie Pen [place] 2016-02-25 02:33:29 Yes Judy Kothari as directed [facility] Trulicity Pen 2016-02-25 02:33:29 Yes Judy Kothari 1.5 mg [facility] OneTouch Delica Lancets 30g 2016-02-25 02:33:29 Yes Judy Kothari as directed [facility] Aspir 81 2016-02-25 02:33:29 Yes Judy Kothari 1 tab(s) [facility] OneTouch Ultra Test Strip 2016-02-25 02:33:29 Yes Judy Kothari as directed [facility] AmLODIPine Besylate 2016-02-25 02:33:29 Yes Judy song 1 tab(s) [facility] atenolol-chlorthalidone 2016-02-25 02:33:29 Yes Judy Vela 1 tab(s) [facility] valsartan 2016-02-25 02:33:29 Yes Judy Kothari 1 tab(s) [facility] Fluticasone Propionate 2016-02-25 02:33:29 Yes Judy Kothari 1 spray(s) [facility] Levocetirizine Dihydrochloride 2016-02-25 02:33:29 Yes Judy Kothari 1 tab(s) [facility] Nifedical XL 2016-02-25 02:33:29 Yes Judy Kothari 1 tab(s) [facility] Bystolic 2016-02-25 02:33:29 Yes Judy Kothari 1 tab(s) [facility] hydrochlorothiazide-valsartan 2015-11-30 02:26:21 No Fr lebron Guthrie 1 tab(s) [facility] atenolol 2015-11-30 02:26:21 No Sony Guthrie 1 tab(s) [facility] Cialis 2015-11-30 02:26:21 No Sony Cadenaes 1 tab(s) [facility] Fluticasone Propionate 2015-11-19 00:00:00 Yes Judy Kothari 1 spray(s) [facility] Levocetirizine Dihydrochloride 2015-11-19 00:00:00 Yes Sony Guthrie 1 tab(s) [facility] valsartan (DIOVAN) 320 MG tablet 2015-10-25 17:23:33 Yes 320mg QD Take 320 mg by mouth daily. [facility] atorvastatin (LIPITOR) 20 MG tablet 2015-10-25 17:23:33 Yes 20mg QD Take 20 mg by mouth nightly. [facility] valsartan 2015-08-17 00:00:00 Yes Judy Kothari 1 tab(s) Elodia Butcher atenolol-chlorthalidone 2015-08-17 00:00:00 Yes Judy Vela 1 tab(s) [facility] AmLODIPine Besylate 2015-08-17 00:00:00 Yes Judy song 1 tab(s) [facility] MetFORMIN Hydrochloride ER 2015-06-18 04:33:49 No Richard Guthrie 1 tab(s) [facility] ONE TOUCH ULTRA MINI LANCETS 2015-06-18 04:33:49 No Lion Guthrie - [facility] hydrochlorothiazide-losartan 2015-06-18 04:33:49 Yes Lion Guthrie 1 tab(s) [facility] Victoza 2015-06-18 04:33:49 Yes Sony Guthrie 1.8 mg [facility] Metoprolol ER succinate 2015-06-18 04:33:49 Yes Randy Guthrie 1 tablet [facility] amlodipine 2015-06-18 04:33:49 No Sony Cadenaes 1 tab(s) [facility] ONE TOUCH ULTRA TEST STRIPS 2015-06-18 04:33:49 No Krishna Guthrie check blood sugar [facility] Cialis 2015-04-20 00:00:00 Yes Sony Cadenaes 1 tab(s) [facility] Pioglitazone Hydrochloride 2015-03-19 00:00:00 Yes Richard harshad [place] 1 tab(s) [facility] OneTouch Delica Lancets 30g 2015-03-19 00:00:00 Yes Krishna Guthrie as directed [facility] Aspir 81 2015-03-19 00:00:00 Yes Sony Cadenaes 1 tab(s) [facility] atenolol 2015-03-19 00:00:00 Yes Sony Guthrie 1 tab(s) [facility] OneTouch Ultra Test Strip 2015-03-19 00:00:00 Yes Clari Guthrie as directed [facility] Trulicity Pen 2015-03-19 00:00:00 Yes Sony Guthrie 1.5 mg [facility] Xigduo XR 2015-03-19 00:00:00 Yes Sony Cadenaes 1 tab(s) [facility] BD Ultrafine Stephanie Pen [place] 2013-05-29 00:00:00 Yes Sony Guthrie as directed [facility] Adipex-P 2013-05-29 00:00:00 Yes Sony Cadenaes 1 tab(s) [facility] ibuprofen 2013-05-15 04:51:59 No Sony Cadenaes 1 tab(s) [facility] Aspirin 81 Mg Tab.chew Aspirin 81 Mg Tab.chew Yes [facility] Atenolol 50 Mg Tablet Atenolol 50 Mg Tablet Yes 100 [facility] Atorvastatin Calcium (Lipitor) 20 Mg Tablet Atorvastat in Calcium (Lipitor) 20 Mg Tablet Yes 20 Daily [facility] Insulin Lispro (Humalog) 100 Unit/1 Ml Cartridge Insul in Lispro (Humalog) 100 Unit/1 Ml Cartridge Yes [facility] Levocetirizine Dihydrochloride (Xyzal) 5 Mg Tablet Lev ocetirizine Dihydrochloride (Xyzal) 5 Mg Tablet Yes 5 Da jamal [facility] Levofloxacin (Levaquin) 250 Mg Tablet Levofloxacin (Levaquin) 250 M g Tablet Yes 250 Daily [facility] Levofloxacin (Levaquin) 500 Mg Tablet Levofloxacin (Levaquin) 500 M g Tablet Yes 500 Daily [facility] Nifedipine (Procardia Xl) 30 Mg Tab.er.24 Nifedipine ( Procardia Xl) 30 Mg Tab.er.24 Yes 60 Daily [facility] Pioglitazone Hcl 45 Mg Tablet Pioglitazone Hcl 45 Mg Tablet Yes 15 Daily [facility] Sucralfate (Carafate) 1 Gm/10 Ml Oral.susp Sucralfate (Carafate) 1 Gm/10 Ml Oral.susp Yes 1 Twice A Day [facility] Ticagrelor (Brilinta) 90 Mg Tablet Ticagrelor (Brilinta) 90 Mg Tablet Yes Twice A Day [facility] Valsartan (Diovan) 160 Mg Tab Valsartan (Diovan) 160 Mg Tab Yes 320 Daily [facility] Vital Signs Vital Name Observation Time Observation Value Comments Source Weight 2016-02-18 18:00:00 [facility] 2016-02-18 18:00:00 [facility] Diastolic (mm Hg) 2016-02-18 18:00:00 [facility] [place] Systolic (mm Hg) 2016-02-18 18:00:00 Glenn Butcher Weight 2015-11-19 18:15:00 [facility] Height 2015-11-19 18:15:00 [facility] Diastolic (mm Hg) 2015-11-19 18:15:00 [facility] [place] Systolic (mm Hg) 2015-11-19 18:15:00 Glenn Butcher Weight 2015-08-17 16:15:00 [facility] Height 2015-08-17 16:15:00 [facility] Diastolic (mm Hg) 2015-08-17 16:15:00 [facility] [place] Systolic (mm Hg) 2015-08-17 16:15:00 Glenn Butcher Weight 2015-04-20 17:00:00 [facility] Height 2015-04-20 17:00:00 [facility] Diastolic (mm Hg) 2015-04-20 17:00:00 [facility] [place] Systolic (mm Hg) 2015-04-20 17:00:00 Glenn [facility] [place] Weight 2015-03-19 19:15:00 [facility] Height 2015-03-19 19:15:00 [facility] Diastolic (mm Hg) 2015-03-19 19:15:00 [facility] [place] Systolic (mm Hg) 2015-03-19 19:15:00 Glenn [facility] [place] Weight 2013-04-22 15:15:00 [facility] Height 2013-04-22 15:15:00 [facility] Diastolic (mm Hg) 2013-04-22 15:15:00 [facility] [place] Systolic (mm Hg) 2013-04-22 15:15:00 Glenn [facility] [place] Weight 2013-04-02 15:00:00 [facility] Height 2013-04-02 15:00:00 [facility] Diastolic (mm Hg) 2013-04-02 15:00:00 [facility] [place] Systolic (mm Hg) 2013-04-02 15:00:00 Glenn [facility] [place] Procedures Procedure Date / Time Performed Performing Clinician [facility] e Esophagogastroduodenoscopy (EGD) with pl acement of percutaneous endoscopic gastrostomy (PEG) 2019-08-20 00:00:00 ROLY DUMONT [facility] Ultrasound guidance for vascular access 2019-08-12 00:00:00 BRIANDA LIRA [facility] Ultrasound of chest including mediastinum 2019-08-09 00:00:00 BRIANDA STEEL [facility] Tracheostomy 2019-08-08 00:00:00 MORRO BARAKAT [facility] Computed tomography of chest without contrast 2019-07-23 00: 00:00 KHUSHBOO LOPEZ [facility] Plan of Care Planned Activity Planned Date Details Comments Source Future Scheduled Test 2020-01-06 00:00:00 INFLUENZA VACCINE [code = INFLUENZA VACCINE] [facility] Future Scheduled Test 2019-10-10 00:00:00 DIABETIC RETINAL E YE EXAM [code = DIABETIC RETINAL EYE EXAM] [facility] Future Scheduled Test 2018 00:00:00 COLONOSCOPY SCREEN ING [code = COLONOSCOPY SCREENING] [facility] Future Scheduled Test 2018 00:00:00 SHINGLES VACCINES (#1) [code = SHINGLES VACCINES (#1)] [facility] Future Scheduled Test 2018-09-03 00:00:00 URINE MICROALBUMIN [code = URINE MICROALBUMIN] [facility] Future Scheduled Test 2018-08-31 00:00:00 DIABETIC FOOT EXAM [code = DIABETIC FOOT EXAM] [facility] Encounters Start Date/Time End Date/Time [facility] Ad[facility] ID Source 2019-07-23 22:20:00 2019-08-27 11:59:00 Discharged Inpatient 1 CHINA DUMONT [facility] [id number] [facility] 2019-07-22 11:05:00 2019-07-22 14:40:00 Departed Emergency Room 1 BENNY HUMPHREYS [facility] [id number] [facility] 2019-07-16 14:51:00 2019-07-16 21:51:00 Departed Emergency Room 1 KHUSHBOO LOPEZ [facility] [id number] [facility] 2016-10-26 10:02:00 2016-10-26 10:02:00 Outpatient Jeff Kothari M.D., P.A. Jeff Kothari M.D., P.A. [id number] [facility] 2016-05-19 15:00:00 2016-05-19 15:00:00 Outpatient Jeff Kothari MD, Jose MD [id number] [facility] 2016-02-18 13:00:00 2016-02-18 13:00:00 Outpatient Jeff Kothari MD, Jose MD [id number] [facility] 2015-11-19 13:15:00 2015-11-19 13:15:00 Outpatient Jeff Kothari MD, Jose MD [id number] [facility] 2015-08-17 11:15:00 2015-08-17 11:15:00 Outpatient Jeff Kothari MD, Jose MD [id number] [facility] 2015-04-20 11:00:00 2015-04-20 11:00:00 Outpatient Jeff Kothari MD, Jose MD [id number] [facility] 2015-03-19 13:15:00 2015-03-19 13:15:00 Outpatient Jeff Kothari MD, [place] [id number] [facility] 2013-04-22 09:15:00 2013-04-22 09:15:00 Outpatient Jeff Kothari MD, Jose [place] [id number] [facility] 2013-04-02 18:17:00 2013-04-02 18:17:00 Outpatient Jeff Kothari MD, Jeff WHITING [id number] [facility] Results Test Description Test Time Test Comments Results Result Comments Source CHEST SINGLE (PORTABLE) 2019-12-19 11:35:00 [place] [address] Patient Name: EDWARD GONSALEZ MR #: [id number] : 1970 Age/Sex: 49/M Req #: [id number] Adm Physician: Ordered by: BENNY HUMPHREYS DO Report #: [id number] Location: ER Room/Bed: Procedure: [id number] DX/CHEST SINGLE (PORTABLE) Exam Date: 12/19/19 Exam Time: 1105 REPORT STATUS: Signed EXAM: CHEST SINGLE (PORTABLE) DATE: 12/19/2019 11:05 AM INDICATION: Shortness of breath COMPARISON: 08/27/2019 FINDINGS/IMPRESSION: The trachea is midline. There are mildly increased interstitial opacities present bilaterally, which are improved in appearance from the prior examination from 08/27/2019. There is no evidence for large focal consolidation, pneumothorax, or significant volume pleural effusion. The cardiomediastinal silhouette is stable in appearance. No acute osseous abnormalities identified. Signed by: Dr. Jn Charles MD on 12/19/2019 11:38 AM Dictated By: JN CHARLES MD 37 Transcribed By: EDNA on 12/19/19 1138 COPY TO: BENNY HUMPHREYS DO Arterial Blood pH 2019-08-27 10:06:00 Test Item Arterial Blood pH (test code = 2744-1) 7.31 7.35-7.45 L [facility] Pressure CO2 2019-08-27 10:06:00* Test Item Value Reference Range Interpretation Comments Arterial Blood Partial Pressure CO2 (test code = 2018-) 52 35-45 H [facility] Partial Pressure O2 2019-08-27 10:06:00* Test Item Value Reference Range Interpretation Comments Arterial Blood Partial Pressure O2 (test code = 2018-) 82 80-105 [facility] [id number] 10:06:00* Test Item Value Reference Range Interpretation Comments Arterial Blood HCO3 (test code = 1960-4) 27 22-26 H [facility] Base [id number] 10:06:00* Test Item Value Reference Range Interpretation Comments Arterial Blood Base Excess (test code = 1925-7) 0.0 -2-3 [facility] Oxygen Saturation 2019-08-27 10:06:00* Test Item Value Reference Range Interpretation Comments Arterial Blood Oxygen Saturation (test code = 2708-6) 95.0 95-98 [id number] 10:06:00* Test Item Value Reference Range Interpretation Comments FiO2 (test code = FiO2) 60 [facility] [id number] 09:02:00* Test Item Value Reference Range Interpretation Comments Bedside Glucose (test code = 61841-8) 156 70-120 H Meter ID: [id number] [place]osphorus [place] 2019[place]27 06:56:00* Test Item Value Reference Range Interpretation Comments Phosphorus Level (test code = TOK6508) 2.5 2.3-4.7 [facility] [place]Magnesium Bspdh4414-33-51 06:56:00* Test Item Value Reference Range Interpretation Comments Magnesium Level (test code = 82423-7) 2.7 1.3-2.1 H [facility] [place]cosCHES SINGLE (PORTABLE)2019-08-27 06:12:00 [facility] [address] [address] Patient Name: EDWARD GONSALEZ MR #: [id number] : 1970 Age/Sex: 48/M Req #: [id number] Adm Physician: CHINA DUMONT MD Ordered by: BRIANDA PETIT MD Report #: [id number] Location: ICU Room/Bed: ICU [facility] Procedure: [id number] DX/CH EST SINGLE (PORTABLE) Exam Date: 08/27/19 Exam Time: 0530 REPORT STATUS: Signed EXAM INATION: CHEST SINGLE (PORTABLE) INDICATION: Respiratory failure. COMPARISON: Chest radiograph 08/26/2019. FINDINGS: LINES/TUBES:Tr acheostomy tube unchanged. Right IJ temporary dialysis catheter unchanged. Rig ht PICC line unchanged. EKG leads overlie the chest. LUNGS:Slightly increas ed bilateral airspace and interstitial opacities. PLEURA:Small right greate r than left pleural effusions. No pneumothorax. MEDIASTINUM:The cardiomedia stinal silhouette appears normal in size and shape. BONES/SOFT TISSUES:No a cute osseous abnormality. ABDOMEN:No free air under the diaphragm. IMP RESSION: Slightly increased bilateral airspace and interstitial opacities, wh ich may represent a combination of multifocal pneumonia and pulmonary edema. Lines and tubes as above. Signed by: Dr. Messi Ames MD on 08/27/2019 6: 14 AM Dictated By: MESSI AMES MD 3 Transcribed By: EDNA on 08/27/19613 COPY TO: BRIANDA ANDUJAR MD Sodium Hyhzt6815-37-93 06:03:00* Test Item Value Reference Range Interpretation Comments Sodium Level (test code = 2951-2) 139 136-145 [facility] [place]Potassium Wsufs2531-60-37 06:03:00* Test Item Value Reference Range Interpretation Comments Potassium Level (test code = 2823-3) 4.2 3.5-5.1 [facility] [place]Chloride Hnqys6198-74-00 06:03:00* Test Item Value Reference Range Interpretation Comments Chloride Level (test code = 2075-0) 104 98-107 [facility] [place]Carbon Dioxide Wugbg5311-13-25 06:03:00* Test Item Value Reference Range Interpretation Comments Carbon Dioxide Level (test code = 2028-9) 28 22-29 [facility] [place]Anion Ube2811-57-32 06:03:00* Test Item Value Reference Range Interpretation Comments Anion Gap (test code = 47077-2) 11.2 8-16 [facility] [place]Blood Urea Ruauhqgm3524-73-67 06:03:00* Test Item Value Reference Range Interpretation Comments Blood Urea Nitrogen (test code = 3094-0) 57 7-26 H [facility] [place]Creatinine2020-04-22 06:03:00* Test Item Value Reference Range Interpretation Comments Creatinine (test code = 2160-0) 4.10 0.72-1.25 H [facility] [place]BUN/Creatinine Cxlsb1129-43-61 06:03:00* Test Item Value Reference Range Interpretation Comments BUN/Creatinine Ratio (test code = 3097-3) 14 6-25 [facility] [place]Estimat Glomerular Filtration Rate 2019-08-27 06:03:00* Test Item Value Reference Range Interpretation Comments Estimat Glomerular Filtration Rate (test code = 207207800) 16 >60 L Ranges were taken from the National Kidney Disease Education Program and the [place] [facility] health[facility] [employer] literature.Reference ranges:60 or greater: Tokhnw22-18 ( for 3 consecutive months): Chronic kidney disease 15 or less: Kidney failureChristus [facility] Rosa [facility] – [place]cosGlucose Jjbsm6947-55-81 06:03:00* Test Item Value Reference Range Interpretation Comments Glucose Level (test code = ESA9044) 142 74-118 H [facility] [place]Calcium Rnqra8799-18-67 06:03:00* Test Item Value Reference Range Interpretation Comments Calcium Level (test code = 35211-6) 9.2 8.4-10.2 [facility] [place]cosTotal Kmcqowvea4829-96-51 06:03:00* Test Item Value Reference Range Interpretation Comments Total Bilirubin (test code = 1975-2) 0.2 0.2-1.2 [facility] [place]cosAspartate Amino Transf (AST/SGOT) 2019-08-27 06:03:00* Test Item Value Reference Range Interpretation Comments Aspartate Amino Transf (AST/SGOT) (test code = Aspartate Amino Transf (AST/SGOT)) 16 5-34 [facility] [place]cosAlanine Aminotransferase (ALT/SGPT) 2019-08-27 06:03:00* Test Item Value Reference Range Interpretation Comments Alanine Aminotransferase (ALT/SGPT) (test code = 1742-6) < 6 0-55 [facility] [place]cosTotal Rbcctjj6401-50-22 06:03:00* Test Item Value Reference Range Interpretation Comments Total Protein (test code = 2885-2) 7.0 6.5-8.1 [facility] [place]cosAlbumin2020-04-22 06:03:00* Test Item Value Reference Range Interpretation Comments Albumin (test code = 1751-7) 2.8 3.5-5.0 L [facility] [place]cosGlobulin2020-04-22 06:03:00* Test Item Value Reference Range Interpretation Comments Globulin (test code = 38286-6) 4.2 2.3-3.5 H [facility] [place]Albumin/Globulin Jfmxd0706-48-43 06:03:00 * Test Item Value Reference Range Interpretation Comments Albumin/Globulin Ratio (test code = 1759-0) 0.7 0.8-2.0 L [facility] [place]Alkaline Hdgffbadvcx0384-20-67 06:03:00* Test Item Value Reference Range Interpretation Comments Alkaline Phosphatase (test code = 6768-6) 101 40-150 [facility] [place]White Blood Kefif1255-47-54 05:44:00* Test Item Value Reference Range Interpretation Comments White Blood Count (test code = 6690-2) 14.82 4.8-10.8 H [facility] [place]Red Blood Kirbw9101-23-75 05:44:00* Test Item Value Reference Range Interpretation Comments Red Blood Count (test code = 789-8) 2.74 4.3-5.7 L [facility] [place]Hemoglobin2020-04-22 05:44:00* Test Item Value Reference Range Interpretation Comments Hemoglobin (test code = 15599-3) 8.2 14.0-18.0 L [facility] [place]Hematocrit2020-04-22 05:44:00* Test Item Value Reference Range Interpretation Comments Hematocrit (test code = 4544-3) 27.1 38.2-49.6 L [facility] [place]cosMean Corpuscular Ktpnyc2903-28-98 05:44:00* Test Item Value Reference Range Interpretation Comments Mean Corpuscular Volume (test code = 787-2) 98.9 81-99 [facility] [place]Mean Corpuscular Trnmktdboy3648-22-08 05:44:00* Test Item Value Reference Range Interpretation Comments Mean Corpuscular Hemoglobin (test code = 785-6) 29.9 28-32 [facility] [place]cosMean Corpuscular Hemoglobin Concent 2019-08-27 05:44:00* Test Item Value Reference Range Interpretation Comments Mean Corpuscular Hemoglobin Concent (test code = 786-4) 30.3 31-35 L [facility] [place]Red Cell Distribution Wkgmg4163-70-12 05:44:00* Test Item Value Reference Range Interpretation Comments Red Cell Distribution Width (test code = 93163-0) 17.9 11.7 -14.4 H [facility] [place]cosPlatelet Epljx9957-35-74 05:44:00* Test Item Value Reference Range Interpretation Comments Platelet Count (test code = 777-3) 219 140-360 [facility] [place]cosNeutrophils (%) (Auto)2019-08-27 05:44:00 * Test Item Value Reference Range Interpretation Comments Neutrophils (%) (Auto) (test code = 10035-5) 70.5 38.7-80.0 [facility] [place]cosLymphocytes (%) (Auto)2019-08-27 05:44:00 * Test Item Value Reference Range Interpretation Comments Lymphocytes (%) (Auto) (test code = 736-9) 8.2 18.0-39.1 L [facility] [place]cosMonocytes (%) (Auto)2019-08-27 05:44:00* Test Item Value Reference Range Interpretation Comments Monocytes (%) (Auto) (test code = 5905-5) 7.7 4.4-11.3 [facility] [place]Eosinophils (%) (Auto)2019-08-27 05:44:00 * Test Item Value Reference Range Interpretation Comments Eosinophils (%) (Auto) (test code = 713-8) 12.4 0.0-6.0 H [facility] [place]Basophils (%) (Auto)2019-08-27 05:44:00* Test Item Value Reference Range Interpretation Comments Basophils (%) (Auto) (test code = 706-2) 0.5 0.0-1.0 [facility] [place]cosIM GRANULOCYTES %2019-08-27 05:44:00* Test Item Value Reference Range Interpretation Comments IM GRANULOCYTES % (test code = IM GRANULOCYTES %) 0.7 0.0- 1.0 [facility] [place]Neutrophils # (Auto)2019-08-27 05:44:00* Test Item Value Reference Range Interpretation Comments Neutrophils # (Auto) (test code = 751-8) 10.5 2.1-6.9 H [facility] [place]Lymphocytes # (Auto)2019-08-27 05:44:00* Test Item Value Reference Range Interpretation Comments Lymphocytes # (Auto) (test code = 59970-0) 1.2 1.0-3.2 [facility] [place]Monocytes # (Auto)2019-08-27 05:44:00* Test Item Value Reference Range Interpretation Comments Monocytes # (Auto) (test code = 742-7) 1.1 0.2-0.8 H [facility] [place]Eosinophils # (Auto)2019-08-27 05:44:00* Test Item Value Reference Range Interpretation Comments Eosinophils # (Auto) (test code = 711-2) 1.8 0.0-0.4 H [facility] [place]Basophils # (Auto)2019-08-27 05:44:00* Test Item Value Reference Range Interpretation Comments Basophils # (Auto) (test code = 704-7) 0.1 0.0-0.1 [facility] [place]cosAbsolute Immature Granulocyte (auto 2019-08-27 05:44:00* Test Item Value Reference Range Interpretation Comments Absolute Immature Granulocyte (auto (carli t code = Absolute Immature Granulocyte (auto) 0.10 0-0.1 [facility] [place]cosCHEST SINGLE (PORTABLE)2019-08-26 05:51:[address] [address] Patient Name: EDWARD GONSALEZ MR #: [id number] : 1970 Age/Sex: 48/M Req #: [id number] Adm Physician: CHINA DUMONT MD Ordered by: CHINA DUMONT MD Report #: [id number] Location: ICU Room/Bed: ICU [facility] Procedure: [id number] DX /CHEST SINGLE (PORTABLE) Exam Date: Exam Time: REPORT STATUS: Signed EXAMINATION: CHEST SINGLE (PORTABLE) INDICATION: Pneumonia, pulmonary edema. COMPARISON: Chest radiograph 08/25/2019 FINDINGS: LINES/TUBES:Trac heostomy tube unchanged. Right IJ temporary dialysis catheter unchanged. Right PICC line unchanged. EKG leads overlie the chest. LUNGS:Slightly improved bilateral airspace and interstitial opacities. PLEURA:Small right pleural e ffusion. No pneumothorax. MEDIASTINUM:The cardiomediastinal silhouette appe ars normal in size and shape. BONES/SOFT TISSUES:No acute osseous abnormali ty. ABDOMEN:No free air under the diaphragm. IMPRESSION: Slightly i mproved bilateral airspace and interstitial opacities, which may represent a c ombination of multifocal pneumonia and pulmonary edema. Signed by: Dr. Madelyn Ames MD on 08/26/2019 5:53 AM Dictated By: MESSI AMES MD Electronicall y Signed By: MESSI AMES MD on 08/26/19552 Transcribed By: EDNA on 08/26/19552 COPY TO: CHINA DUMONT MD Blood Bkxkznc3677-70-59 17:22:00 * Test Item Value Reference Range Interpretation Comments Blood Culture (test code = 65139245) NO GROWTH AFTER 72 HOURS [facility]2019-08-25 10:10:00 [facility] [address] [place] [address] Patient Name: EDWARD GONSALEZ MR #: [id number] : 1970 Age/Sex: 48/M Req #: [id number] Adm Physician: CHINA DUMONT MD Ordered by: CHINA UDMONT MD Report #: [id number] Location: ICU Room/Bed: ICU [facility] Procedure: [id number] DX /CHEST SINGLE (PORTABLE) Exam Date: 08/25/19 Exam Ti me: 0430 REPORT STATUS: Signed E XAMINATION: CHEST SINGLE (PORTABLE) INDICATION: Pneumonia COMPARI SON: Chest radiograph 08/24/2019 FINDINGS: LINES/TUBES:Tracheostom y tube unchanged. Right IJ temporary dialysis catheter unchanged. Right PICC l ine unchanged. EKG leads overlie the chest. LUNGS:Unchanged bilateral airsp alfie and interstitial opacities. PLEURA:No pleural effusion or pneumothorax. MEDIASTINUM:The cardiomediastinal silhouette appears normal in size and sh ape. BONES/SOFT TISSUES:No acute osseous injury. ABDOMEN:No free air u nder the diaphragm. IMPRESSION: Unchanged bilateral airspace and inte rstitial opacities consistent with known multifocal pneumonia/ARDS. Belen d by: Heber Marino MD on 08/25/2019 10:12 AM Dictated By: HEBER MARINO MD El ectronically Signed By: HEBER MARINO MD on 08/25/19 1012 Transcribed By: EDNA on 08/25/19 1012 COPY TO: CHINA DUMONT MD CHEST SINGLE (PORTABLE)2019-08-24 08:36:00 [address] [address] Patient Name: EDWARD GONSALEZ MR #: [id number] : 1970 Age/Sex: 48/M Req #: [id number] Adm Physician: CHINA DUMONT MD Ordered by: CHINA DUMONT MD Report #: [id number] Location: ICU Room/Bed: ICU 192 Procedure: [id number] DX /CHEST SINGLE (PORTABLE) Exam Date: 08/24/19 Exam Ti me: 0451 REPORT STATUS: Signed E XAMINATION: CHEST SINGLE (PORTABLE) INDICATION: Pneumonia. Pulmonary e chano. COMPARISON: Chest radiograph 08/23/2019. FINDINGS: LINES/ TUBES: Stable tubes and lines: Tracheostomy in unchanged position. Right IJ no n-tunneled hemodialysis catheter terminates in the mid SVC or cavoatrial junct ion.. Right arm PICC terminates in the SVC. LUNGS:The lungs are moderately inflated. There is predominantly perihilar patchy airspace disease with mild prominence of the of the pulmonary vasculature with bilateral mid and lower radha ng zone opacities, slightly decreased in the right lung. PLEURA:Small bi lateral pleural effusions. No pneumothorax. MEDIASTINUM:The cardiomediastin al silhouette appears unchanged in size and shape. BONES/SOFT TISSUES:No acute osseous injury. ABDOMEN:No free air under the diaphragm. IMPRESS ION: No significant interval change in appearance of the lungs suggesting jace ma with possible superimposed infection the proper clinical setting.. Small bi lateral pleural effusions. Lines and tubes are unchanged in position. Signed by: Dr. Jaylin Good M.D. on 08/24/2019 8:38 AM Dictated By: LILA GOOD MD, MD 7 COPY TO: HERIBERTO DUMONT MD B-Type Natriuretic Rdgcifi0329-86-83 06:11:00* Test Item Value Reference Range Interpretation Comments B-Type Natriuretic Peptide (test code = 70523-7) 993.5 0-100 H [facility] [place]cosProthrombin Fnna9145-78-95 07:55:00* Test Item Value Reference Range Interpretation Comments Prothrombin Time (test code = 5902-2) 14.6 11.9-14.5 H [facility] [place]cosProthromb Time International Ratio 2019-08-23 07:55:00* Test Item Value Reference Range Interpretation Comments Prothromb Time International Ratio (test code = 6301-6) 1.07 Oral Anticoagulant Therapy INR Values:1. Low Intensity Therapy 1.5 - 2.02 . Moderate Intensity Therapy 2.0 - 3.03. High Intensity Therapy(1) 2.5 - 3. 54. High Intensity Therapy(2) 3.0 - 4.05. Panic Value INR > 5.0 [facility] [place]cosActivated Partial Thromboplast Time 2019-08-23 07:55:00* Test Item Value Reference Range Interpretation Comments Activated Partial Thromboplast Time (test code = 77791-9) 46.3 23.8-35.5 H [facility] [place]cosCHEST SINGLE (PORTABLE)2019-08-23 07:25:00 [facility] [address] [place] [address] Patient Name: EDWARD GONSALEZ MR #: [id number] : 1970 Age/Sex: 48/M Req #: [id number] Adm Physician: CHINA DUMONT MD Ordered by: BRIANDA PETIT MD Report #: [id number] Location: ICU Room/Bed: ICU [facility] Procedure: [id number] DX/CH EST SINGLE (PORTABLE) Exam Date: 08/23/19 Exam Time: 0633 REPORT STATUS: Signed EXAM INATION: CHEST SINGLE (PORTABLE) INDICATION: Respiratory failure. COMPARISON: Chest radiograph 08/21/2019. FINDINGS: LINES/TUBES: Tra cheostomy in unchanged position. Right IJ non-tunneled hemodialysis catheter t erminates in the mid SVC. Right arm PICC terminates in the SVC. Overlying EKG leads. LUNGS:The lungs are moderately inflated. There is perihilar fullness and indistinctness of the pulmonary vasculature with bilateral mid and lower lung zone opacities, slightly decreased in the right lung. PLEURA:Small bilateral pleural effusions. No pneumothorax. MEDIASTINUM:The cardiomediast inal silhouette appears unchanged in size and shape. BONES/SOFT TISSUES:N o acute osseous injury. ABDOMEN:No free air under the diaphragm. IMPRE SSION: Bilateral opacities, slightly decreased in the right lung, which may r epresent multifocal pneumonia with superimposed pulmonary edema. Small bilater al pleural effusions. Lines and tubes unchanged. Signed by: Dr. Mary Ames MD on 08/23/2019 7:33 AM Dictated By: MESSI AMES MD Electronical ly Signed By: MESSI AMES MD on 08/23/19732 Transcribed By: EDNA on 732 COPY TO: BRIANDA PETIT MD CHEST SINGLE (PORTABLE)2019-08-21 09:08:00 [address] [address] Patient Name: EDWARD GONSALEZ MR #: [id number] : 1970 Age/Sex: 48/M Req #: [id number] Adm Physician: CHINA DUMONT MD Ordered by: CHINA DUMONT MD Report #: [id number] Location: ICU Room/Bed: ICU [facility] Procedure: [id number] DX /CHEST SINGLE (PORTABLE) Exam Date: 08/21/19 Exam Ti me: 0817 REPORT STATUS: Signed E XAM: CHEST SINGLE (PORTABLE) DATE: 08/21/2019 5:00 AM INDICATION: AR DS COMPARISON: 08/20/2019 FINDINGS: Tracheostomy cannula, right-rell ed nontunneled dialysis catheter, and left-sided PICC line identified in stabl e position. Enteric tube no longer visualized. Again identified are bilater al patchy airspace opacities, right greater than left and more prominent withi n the mid and lower lung zones. There is no evidence for pneumothorax. There i s blunting of the costophrenic angles and small effusions are suspected, uncha nged from prior examinations. The cardiac mediastinal silhouette is stable in appearance. No acute osseous abnormality is identified. IMPRESSION: No significant interval change from 08/20/2019. Grossly stable appeari ng patchy airspace opacities again identified bilaterally. Signed by: Dr. Jn Charles MD on 08/21/2019 9:12 AM Dictated By: JN CHARLES MD Elec tronically Signed By: JN CHARLES MD on 08/21/19911 Transcribed By: EDNA on 08/21/19911 COPY TO: CHINA DUMONT MD Differential Total Cells Jsmqidr3601-55-13 09:32:00* Test Item Value Reference Range Interpretation Comments Differential Total Cells Counted (test code = Roberto tial Total Cells Counted) 100 [facility] [place]cosNeutrophils % (Manual)2019-08-20 09:32:00 * Test Item Value Reference Range Interpretation Comments Neutrophils % (Manual) (test code = 81862-3) 76 40-74 H [facility] [place]Lymphocytes % (Manual)2019-08-20 09:32:00 * Test Item Value Reference Range Interpretation Comments Lymphocytes % (Manual) (test code = 737-7) 5 19-48 L [facility] [place]Monocytes % (Manual)2019-08-20 09:32:00* Test Item Value Reference Range Interpretation Comments Monocytes % (Manual) (test code = 744-3) 14 3.4-9.0 H [facility] [place]Eosinophils % (Manual)2019-08-20 09:32:00 * Test Item Value Reference Range Interpretation Comments Eosinophils % (Manual) (test code = 714-6) 4 0-7 [facility] [place]cosMetamyelocytes %2019-08-20 09:32:00* Test Item Value Reference Range Interpretation Comments Metamyelocytes % (test code = 740-1) 1 0-0 H [facility] [place]cosPlatelet Anodslcq1596-21-26 09:32:00* Test Item Value Reference Range Interpretation Comments Platelet Estimate (test code = 76716-1) ADEQUATE [facility] [place]cosPlatelet Morphology Walgqlz9692-37-00 09:32:00* Test Item Value Reference Range Interpretation Comments Platelet Morphology Comment (test code = 37265-7) NORMAL [facility] [place]cosPolychromasia2020-04-15 09:32:00* Test Item Value Reference Range Interpretation Comments Polychromasia (test code = 74961-4) FEW [facility] [place]cosAnisocytosis2020-04-15 09:32:00* Test Item Value Reference Range Interpretation Comments Anisocytosis (test code = 702-1) R [facility] [place]cosMacrocytosis2020-04-15 09:32:00* Test Item Value Reference Range Interpretation Comments Macrocytosis (test code = 738-5) SLIGHT [facility] [place]cosRed Cell Morphology Auwtrix4191-18-23 09:32:00* Test Item Value Reference Range Interpretation Comments Red Cell Morphology Comment (test code = 6742-1) ABNORMAL [facility] [place]cosCHEST SINGLE (PORTABLE)2019-08-20 08:13:00 [facility] [address] [place] [address] Patient Name: EDWARD GONSALEZ MR #: [id number] : 1970 Age/Sex: 48/M Req #: [id number] Adm Physician: CHINA DUMONT MD Ordered by: CHINA DUMONT MD Report #: [id number] Location: ICU Room/Bed: ICU [facility] Procedure: [id number] DX /CHEST SINGLE (PORTABLE) Exam Date: 08/20/19 Exam Ti me: 0632 REPORT STATUS: Signed E XAMINATION: CHEST SINGLE (PORTABLE) INDICATION: Pneumonia. Sepsis. Mec hanical ventilation. COMPARISON: Chest radiograph of 08/19/2019 FI NDINGS: LINES/TUBES:Supporting tubes and lines are unchanged in position (r ight upper extremity PICC. Left upper extremity PICC, right IJ catheter, and e nteric tube with distal tip not included. LUNGS:The lungs are moderately inflated. Redemonstration of bilateral patchy airspace disease, most markedly involving the mid to lower lungs. Slight increased aeration of the left upper lobe. Bilateral pulmonary venous congestion. Bilateral perihilar, peribronchia l thickening. PLEURA:Bilateral small pleural effusions, right greater than left. No pneumothorax. MEDIASTINUM:The cardiomediastinal silhouette is pa rtially obscured, however, appears mildly enlarged. BONES/SOFT TISSUES:No acute osseous injury. ABDOMEN:No free air under the diaphragm. IMP RESSION: No significant interval change bilateral patchy airspace opacitie s. Stable supporting tubes and lines. Signed by: Dr. Jaylin peña M.D. on 08/20/2019 8:18 AM Dictated By: LILA GOOD MD, MD Electro nically Signed By: LILA GOOD MD, MD on 08/20/19817 Transcribed By: ABIDA Prieto on 08/20/19817 COPY TO: CHINA DUMONT MD CHEST SINGLE (PORTABLE)2019-08-19 08:20:00 [place] [address] Patient Name: EDWARD GONSALEZ MR #: [id number] : 1970 Age/Sex: 48/M Req #: [id number] Adm Physician: CHINA DUMONT MD Ordered by: CHINA DUMONT MD Report #: [id number] Location: ICU Room/Bed: ICU 192 Procedure: [id number] DX /CHEST SINGLE (PORTABLE) Exam Date: 08/19/19 Exam Ti me: 0630 REPORT STATUS: Signed T ECHNIQUE: Frontal view of the chest. INDICATION: ARDS/Mech Ventilation COMPARISON: Prior day. IMPRESSION: Lines and hardware: Stable. He art and mediastinum: Stable. Lungs and pleura: Mild improvement in the aeratio n of the right lung. Otherwise, stable bilateral patchy airspace opacities wit h small bilateral pleural effusions. No pneumothorax. Soft tissues and bones : No acute abnormality. Signed by: Balta Soriano MD on 08/19/2019 8 :22 AM Dictated By: BALTA SORIANO DO 1 Transcribed By: EDNA on 08/19/19821 COPY TO: CHINA DUMONT MD CHEST SINGLE (PORTABLE)2019-08-18 09:56:00 [place] [address] Patient Name: EDWARD GONSALEZ MR #: [id number] : 1970 Age/Sex: 48/M Req #: [id number] Adm Physician: CHINA DUMONT MD Ordered by: CHINA DUMONT MD Report #: [id number] Location: ICU Room/Bed: ICU 192 Procedure: [id number] DX /CHEST SINGLE (PORTABLE) Exam Date: 08/18/19 Exam Ti me: 0603 REPORT STATUS: Signed E XAMINATION: CHEST SINGLE (PORTABLE) INDICATION: Pneumonia COMPARI SON: Chest radiograph of 08/17/2019 FINDINGS: LINES/TUBES:Lines an d tubes unchanged. LUNGS:The lungs are moderately inflated. There is perihi lar fullness and indistinctness of the pulmonary vasculature. Unchanged bilate ral airspace opacities. PLEURA:Small bilateral pleural effusion. No pneum othorax. MEDIASTINUM:The cardiomediastinal silhouette appears unchanged in size and shape. BONES/SOFT TISSUES:No acute osseous injury. ABDOMEN: No free air under the diaphragm. IMPRESSION: Unchanged bilateral airs pace opacities. Lines and tubes unchanged. Signed by: Heber Marino MD o n 08/18/2019 9:57 AM Dictated By: HEBER MARINO MD 6 Transcribed By: EDNA on 08/18/19956 COPY TO: CHINA DUMONT MD CHEST SINGLE (PORTABLE)2019-08-18 09:50:00 [place] [address] Patient Name: EDWARD GONSALEZ MR #: [id number] : 1970 Age/Sex: 48/M Req #: [id number] Adm Physician: CHINA DUMONT MD Ordered by: NILSON RUBIO MD Report #: [id number] Location: ICU Room/Bed: ICU [facility] Procedure: [id number] DX /CHEST SINGLE (PORTABLE) Exam Date: 08/17/19 Exam Ti me: 2155 REPORT STATUS: Signed E XAMINATION: CHEST SINGLE (PORTABLE) INDICATION: Pneumonia COMPARI SON: Chest radiograph of 08/17/2019 FINDINGS: LINES/TUBES:Lines an d tubes unchanged. LUNGS:The lungs are moderately inflated. There is perihi lar fullness and indistinctness of the pulmonary vasculature. Unchanged bilate ral airspace opacities. PLEURA:Small bilateral pleural effusion. No pneum othorax. MEDIASTINUM:The cardiomediastinal silhouette appears unchanged in size and shape. BONES/SOFT TISSUES:No acute osseous injury. ABDOMEN: No free air under the diaphragm. IMPRESSION: Unchanged bilateral airs pace opacities. Lines and tubes unchanged. Signed by: Heber Marino MD o n 08/18/2019 9:56 AM Dictated By: HEBER MARINO MD 5 Transcribed By: EDNA on 08/18/19955 COPY TO: NILSON RUBIO MD Hwpzwcpniskoa1466-43-54 07:22:00* Test Item Value Reference Range Interpretation Comments Hypochromasia (test code = 728-6) MODERATE [facility] T8440-55-20 06:51:00* Test Item Value Reference Range Interpretation Comments Troponin I (test code = 28390-3) 0.078 0-0.300 [facility]cosCreatine Kinase BG0848-19-74 23:52:00* Test Item Value Reference Range Interpretation Comments Creatine Kinase MB (test code = 59965-2) 1.70 0-5.0 [facility] Qlzspd9331-46-78 23:44:00* Test Item Value Reference Range Interpretation Comments Creatine Kinase (test code = 2157-6) 37 30-200 [facility]2019-08-17 07:21:00 [place] [address] Patient Name: EDWARD GONSALEZ MR #: [id number] : 1970 Age/Sex: 48/M Req #: [id number] Adm Physician: CHINA DUMONT MD Ordered by: CHINA DUMONT MD Report #: [id number] Location: ICU Room/Bed: ICU 192-1 Procedure: [id number] DX /CHEST SINGLE (PORTABLE) Exam Date: 08/17/19 Exam Ti me: 0635 REPORT STATUS: Signed E XAMINATION: CHEST SINGLE (PORTABLE) INDICATION: ARDS, mechanical venti lation. COMPARISON: Chest radiograph performed 11/24/2019. FINDING S: LINES/TUBES:Tracheostomy tube is unchanged. Left PICC line terminates at th e brachiocephalic confluence. Right arm PICC terminates in the SVC. Right IJ n on tunneled hemodialysis catheter terminates in the SVC. Enteric tube terminat es in the stomach. Overlying EKG leads. LUNGS:Bilateral multifocal inters titial and airspace opacities. PLEURA:Small bilateral pleural effusions, ri ght greater than left. No pneumothorax. MEDIASTINUM:Mildly enlarged cardi omediastinal silhouette. BONES/SOFT TISSUES:No acute osseous abnormality. ABDOMEN:No free air under the diaphragm. IMPRESSION: Bilateral multi focal opacities, which may represent ARDS, multifocal pneumonia, and/or pulmon amie edema. Lines and tubes as above. No evidence of pneumothorax. Sig jose elias by: Dr. Messi Ames MD on 08/17/2019 7:24 AM Dictated By: MESSI Bonilla 3 Transcribed By: Tiempo Listo CAMARGO on 08/17/19723 COPY TO: CHINA DUMONT MD Stool Occult Gfshr9013-90-14 07:22:00* Test Item Value Reference Range Interpretation Comments Stool Occult Blood (test code = 2335-8) POSITIVE NEGATIVE H [facility] SINGLE (PORTABLE)2019-08-16 06:42:00 [facility] [address] [place] [address] Patient Name: EDWARD GONSALEZ MR #: [id number] : 1970 Age/Sex: 48/M Req #: [id number] Adm Physician: CHINA DUMONT MD Ordered by: BRIANDA PETIT MD Report #: [id number] Location: ICU Room/Bed: ICU [facility] Procedure: [id number] DX/CH EST SINGLE (PORTABLE) Exam Date: 08/16/19 Exam Time: 0610 REPORT STATUS: Signed EXAM INATION: CHEST SINGLE (PORTABLE) INDICATION: ARDS. COMPARISON: M maria prior chest radiograph most recently 08/12/2019. FINDINGS: LI ISAK/TUBES:Tracheostomy tube is unchanged. Left PICC line terminates at the bra chiocephalic confluence. Right IJ non tunneled hemodialysis catheter terminate s in the SVC. Enteric tube terminates in the stomach. Overlying EKG leads. LUNGS:Slight increased bilateral mid and lower lung predominant interstitial and airspace opacities. PLEURA:Increased small bilateral pleural effusions. No pneumothorax. MEDIASTINUM:The cardiomediastinal silhouette appears unc hanged in size and shape. BONES/SOFT TISSUES:No acute osseous injury. ABDOMEN:No free air under the diaphragm. IMPRESSION: Slightly increased bilateral mid and lower lung zone opacities, which may represent a combination of multifocal pneumonia and pulmonary edema. Small bilateral pleural effusi ons. Signed by: Dr. Messi Ames MD on 08/16/2019 6:45 AM Dictated By: MESSI AMES MD Transc ribed By: EDNA on 08/16/19644 COPY TO: BRIANDA PETIT MD Hepatitis Be Cvdgyzdr3878-54-00 12:45:00* Test Item Value Reference Range Interpretation Comments Hepatitis Be Antibody (test code = 20506-8) Negative Negative Performed at: [address] [id number] Pharmacy Student: Osito Saunders MD, Phone: [phone] [facility]neAmylase Knxbj8457-91-19 07:28:00* Test Item Value Reference Range Interpretation Comments Amylase Level (test code = 1798-8) 21 25-125 L [facility]cosLipase2020-04-10 07:28:00* Test Item Value Reference Range Interpretation Comments Lipase (test code = 3040-3) < 4 8-78 L [facility]cosD-Dimer Quantitative (PE/DVT)2019-08-15 00:50:00* Test Item Value Reference Range Interpretation Comments D-Dimer Quantitative (PE/DVT) (test code = 37936-8) 3.92 0. 00-0.45 H [facility])2019-08-14 16:40:00 [place] [address] Patient Name: EDWARD GONSALEZ MR #: [id number] : 1970 Age/Sex: 48/M Req #: [id number] Adm Physician: CHINA DUMONT MD Ordered by: BRIANDA PETIT MD Report #: [id number] Location: ICU Room/Bed: ICU [facility] Procedure: [id number] DX/CH EST SINGLE (PORTABLE) Exam Date: 08/14/19 Exam Time: 1620 REPORT STATUS: Signed EXAM: CHEST SINGLE (PORTABLE) DATE: 08/14/2019 3:38 PM INDICATION: Trache ostomy cannula, right IJ nontunneled dialysis catheter, and left PICC line gayatri ntified in stable position. Enteric tube noted coursing below the diaphragm a nd terminating in left upper quadrant expected region of the stomach. The re are unchanged bilateral interstitial and airspace opacities in lower lung z one predominance. There is no evidence for pneumothorax. There are possible tr alfie bilateral pleural effusions present. The cardiomediastinal silhouette i s stable in appearance. No acute osseous abnormality is identified. IM PRESSION: No significant interval change from 08/12/2019. Stable appeari ng bilateral lower lung zone predominant interstitial and airspace opacities. Signed by: Dr. Jn Charles MD on 08/14/2019 4:44 PM Dictated By: JN CHARLES MD 164 Transc ribed By: EDNA on 08/14/19 1644 COPY TO: BRIANDA PETIT MD Hepatitis B Core Total Bnyyhtbx3180-05-87 08:55:00* Test Item Value Reference Range Interpretation Comments Hepatitis B Core Total Antibody (test code = 50296-0) Negative Negative [facility] B Surface Tleldgt3118-43-19 08:55:00* Test Item Value Reference Range Interpretation Comments Hepatitis B Surface Antigen (test code = 5196-1) Negative Negat isaak [facility] B Core IgM Txddywmi0659-15-29 08:55:00* Test Item Value Reference Range Interpretation Comments Hepatitis B Core IgM Antibody (test code = 07528-5) Negative Ne gative Performed at: HD - [facility] [address] [id number] Director: Hari Valentine MD, Phone: [phone] MarcosIR WCRTVBX1444-37-50 16:35:00 [place] [id number] Patient Name: EDWARD GONSALEZ MR #: [id number] : 1970 Age/Sex: 48/M Req #: [id number] Adm Physician: CHINA DUMONT MD Ordered by: BRIANDA PETIT MD Report #: [id number] Location: ICU Room/Bed: ICU 1921 Procedure: DX/IR CONSULT Exam Date: Exam Time: REPORT STATUS: Signed PROCEDURE: Non-tunneled tempo rary dialysis catheter placement Procedural Personnel Attending physician (s): Heber Marino MD Fellow physician(s): None Resident physician(s): None Advanced practice provider(s): None Pre-procedure diagnosis: RACHEL Post-pro cedure diagnosis: Same Indication: Performance of hemodialysis Additional cl inical history: None Complications: No immediate complications. IMPRES URI: Insertion of right-sided non-tunneled triple-lumen temporary dialysis catheter. Plan: Postprocedural chest radiograph shows tip in the cavoat rial junction. The catheter may be used immediately. PROCEDURE SUMMARY: - Venous acce ss with ultrasound guidance - Non-tunneled central venous catheter insertion - Additional procedure(s): None PROCEDURE DETAILS: Pre-procedure Co nsent: Informed consent for the procedure including risks, benefits and altern atives was obtained and time-out was performed prior to the procedure. Prepara tion (MIPS): The site was prepared and draped using all elements of maximal st erile barrier technique including sterile gloves, sterile gown, cap, mask, lar ge sterile sheet, sterile ultrasound probe cover, hand hygiene and cutaneous a ntisepsis with 2% chlorhexidine. Medical reason for site preparation exceptio n (MIPS): Not applicable Anesthesia/sedation Level of anesthesia/sedation : No sedation Anesthesia/sedation administered by: Independent trained observe r under attending supervision with continuous monitoring of the patient?s leve l of consciousness and physiologic status Total intra-service sedation time (minutes): NA Access Local anesthesia was administered. The vessel was so nographically evaluated and determined to be patent. Real time ultrasound was used to visualize needle entry into the vessel and a permanent image was store d. Vein accessed: Internal jugular vein Access technique: Micropuncture set with 21 gauge needle Catheter placement The access site was dilated and t he catheter was placed into the vein over a wire . A sterile dressing was appl ied. Catheter placed: Shoprocket Catheter size (Korean): 13 Catheter length (cm) : 15 Catheter flush: Heparin (1000 units/mL) Catheter securement technique: Non-absorbable suture Contrast Contrast agent: None Contrast volume (mL ): N.A Radiation Dose None Additional Details Additional descripti on of procedure: None Equipment details: None Specimens removed: None Justine mated blood loss (mL): Less than 10 Standardized report: [id number] [id number] Attestation Signer name: Heber Marino MD I attest that I was p resent for the entire procedure. I reviewed the stored images and agree with t josep report as written. Signed by: Heber Marino MD on 08/13/2019 4:36 PM Dictated By: HEBER MARINO MD 1636 Transcribed By: EDNA on 08/13/19 1636 COPY TO: BRIANDA PETIT MD NON-TUNNELLED CVC CATH PMRVOMR1273-91-26 16:35:00 [place] [address] Patient Name: EDWARD GONSALEZ MR #: [id number] : 1970 Age/Sex: 48/M Req #: [id number] Adm Physician: CHINA DUMONT MD Ordered by: BRIANDA PETIT MD Report #: [id number] Location: ICU Room/Bed: ICU [facility] Procedure: [id number] IR/NO N-TUNNELLED CVC CATH PLACMNT Exam Date: 08/12/19 Exmegan m Time: 1531 REPORT STATUS: Signed PROCEDURE: Non-tunneled temporary dialysis catheter placement Procedural Personnel Attending physician(s): Heber Marino MD Fellow physician(s): None Resident physician(s): None Advanced practice provider(s): None Pre-pro cedure diagnosis: RACHEL Post-procedure diagnosis: Same Indication: Performance of hemodialysis Additional clinical history: None Complications: No imme diate complications. IMPRESSION: Insertion of right-sided non-tunneled triple-lumen temporary dialysis catheter. Plan: Postprocedural chest ra diograph shows tip in the cavoatrial junction. The catheter may be used immedi ately. SD OCEDURE SUMMARY: - Venous access with ultrasound guidance - Non-tunneled farrukh tral venous catheter insertion - Additional procedure(s): None PROCEDURE DETAILS: Pre-procedure Consent: Informed consent for the procedure includ ing risks, benefits and alternatives was obtained and time-out was performed p rior to the procedure. Preparation (MIPS): The site was prepared and draped us ing all elements of maximal sterile barrier technique including sterile gloves , sterile gown, cap, mask, large sterile sheet, sterile ultrasound probe cover , hand hygiene and cutaneous antisepsis with 2% chlorhexidine. Medical reas on for site preparation exception (MIPS): Not applicable Anesthesia/sedatio n Level of anesthesia/sedation: No sedation Anesthesia/sedation administered by: Independent trained observer under attending supervision with continuous monitoring of the patient?s level of consciousness and physiologic status To leo intra-service sedation time (minutes): NA Access Local anesthesia was administered. The vessel was sonographically evaluated and determined to be p atent. Real time ultrasound was used to visualize needle entry into the vessel and a permanent image was stored. Vein accessed: Internal jugular vein Acce ss technique: Micropuncture set with 21 gauge needle Catheter placement T he access site was dilated and the catheter was placed into the vein over a wi re . A sterile dressing was applied. Catheter placed: Bard Catheter size (Fr ench): 13 Catheter length (cm): 15 Catheter flush: Heparin (1000 units/mL) Catheter securement technique: Non-absorbable suture Contrast Contrast a gent: None Contrast volume (mL): N.A Radiation Dose None Additiona l Details Additional description of procedure: None Equipment details: None Specimens removed: None Estimated blood loss (mL): Less than 10 Standardiz ed report: [id number] Attestation Signer name: Javy Marino MD I attest that I was present for the entire procedure. I reviewed the stored images and agree with the report as written. Signed by: Heber Marino MD on 08/13/2019 4:36 PM Dictated By: HEBER MARINO MD Electronically Belen d By: HEBER MARINO MD on 08/13/19 163 Transcribed By: EDNA on 08/13/19 1636 COPY TO: BRIANDA PETIT MD GUIDANCE FOR VASCULAR RAZML3403-98-03 16:35:00 [place] [address] Patient Name: EDWARD GONSALEZ MR #: [id number] : 1970 Age/Sex: 48/M Req #: [id number] Adm Physician: CHINA DUMONT MD Ordered by: BRIANDA PETIT MD Report #: [id number] Location: ICU Room/Bed: ICU [facility] Procedure: [id number] US/US GUIDANCE FOR VASCULAR ACCES Exam Date: 08/12/19 Exam Time: 1531 REPORT STATUS: Signed PROCEDURE: Non-tunneled temporary dialysis catheter placement Procedural Personnel Attending physician(s): Heber Marino MD Fellow physician(s): None Resident physician(s): None Advanced practice provider(s): None Pre-pro cedure diagnosis: RACHEL Post-procedure diagnosis: Same Indication: Performance of hemodialysis Additional clinical history: None Complications: No imme diate complications. IMPRESSION: Insertion of right-sided non-tunneled triple-lumen temporary dialysis catheter. Plan: Postprocedural chest ra diograph shows tip in the cavoatrial junction. The catheter may be used immedi ately. SD OCEDURE SUMMARY: - Venous access with ultrasound guidance - Non-tunneled farrukh tral venous catheter insertion - Additional procedure(s): None PROCEDURE DETAILS: Pre-procedure Consent: Informed consent for the procedure includ ing risks, benefits and alternatives was obtained and time-out was performed p rior to the procedure. Preparation (MIPS): The site was prepared and draped us ing all elements of maximal sterile barrier technique including sterile gloves , sterile gown, cap, mask, large sterile sheet, sterile ultrasound probe cover , hand hygiene and cutaneous antisepsis with 2% chlorhexidine. Medical reas on for site preparation exception (MIPS): Not applicable Anesthesia/sedatio n Level of anesthesia/sedation: No sedation Anesthesia/sedation administered by: Independent trained observer under attending supervision with continuous monitoring of the patient?s level of consciousness and physiologic status To leo intra-service sedation time (minutes): NA Access Local anesthesia was administered. The vessel was sonographically evaluated and determined to be p atent. Real time ultrasound was used to visualize needle entry into the vessel and a permanent image was stored. Vein accessed: Internal jugular vein Acce ss technique: Micropuncture set with 21 gauge needle Catheter placement T he access site was dilated and the catheter was placed into the vein over a wi re . A sterile dressing was applied. Catheter placed: Bard Catheter size (Fr ench): 13 Catheter length (cm): 15 Catheter flush: Heparin (1000 units/mL) Catheter securement technique: Non-absorbable suture Contrast Contrast a gent: None Contrast volume (mL): N.A Radiation Dose None Additiona l Details Additional description of procedure: None Equipment details: None Specimens removed: None Estimated blood loss (mL): Less than 10 Standardiz ed report: [email or web address] Attestation Signer name: Javy Marino MD I attest that I was present for the entire procedure. I reviewed the stored images and agree with the report as written. Signed by: Heber Marino MD on 08/13/2019 4:36 PM Dictated By: HEBER MARINO MD Electronically Belen d By: HEBER MARINO MD on 08/13/196 Transcribed By: EDNA on 08/13/19 1636 COPY TO: BRIANDA PETIT MD Coronavirus (PCR)2019-08-13 05:34:00* Test Item Value Reference Range Interpretation Comments Coronavirus (PCR) (test code = Coronavirus (PCR)) NOT DETECTED NOTD ETECTED SARS-COV-2 (COVID19), HIGHRISK, RT-PCRNegative results do not preclude SARS-CoV- 2 infection and should not be used as the sole basis for patient management deci sions. Negative results must be combined with clinical observations, patient his tory, and epidemiological information. Optimum specimen types and timing for pea k viral levels during infections caused by SARS-CoV-2 have not been determined. Collection of multiple specimens ot types of specimens may be necessary to detec t virus. Improper specimen collection and handling, sequence variability under p rimers/probes, or organism present below the limit of detection may lead to fals e negative results. Positive and negative predictive values of testing are highl y dependent on prevalance. False negative test results are more likely when prev alence is high.The expected result is negative (not detected).The SARS-CoV-2 carli t is intended for the qualitative detection of nucleic acid from SARS-CoV-2 in n asopharyngeal and oropharyngeal swab samples from patients who meet COVID-19 cli nical and or epidemiological criteria. For lower respiratory tract specimens, th e assay is submitted for authoriztion by FDA under an Emergency Use Authorizatio n (EUA). Testing methodology is real time RT-PCR. If received as separate collec tion devices, nasopharygeal and oropharyngeal specimens are combined for analysi s. Additional specimens may be split to a separate accession for analysi and rep orting as this test includes a single unit of service.Test results must be corre lated with clinical presentation and evaluated in the context of other laborator y and epidemiologic data. Test performance can be affected because the epidemiol ogy and clinical spectrum of infection caused by SARS-CoV-2 is not fully known. For example, the optimum types of specimens to collect and when during the cours e of infection these specimens are most likely to contain detectable viral RNA m ay not be known.This test has not been Food and Drug Administration (FDA) cleare d or approved and has been authorized by FDA under an Emergency Use Authorizatio n (EUA). The test is only authorized for the duration of the declaration that ci rcumstances exist justifying the authorization of emergency use of in vitro diag nostic tests for detection and/or diagnosis of SARS-CoV-2 under section 564(b) o f the Act, 21 U.S.C. section 360bbb-3(b)(1), unless the authorization is termina eulalia or revoked sooner. [facility] are certified under the C linical Laboratory Improvement Amendments of 1988 (CLIA), 42 U.S.C. section 263a , to perform high complexity tests.Specimen sent to [facility] and testing performed by [facility] [address] [place] [address] [phone] Director: Shabbir Moran M.D.CLIA # 4 [id number] [facility]neFolate2020-04-08 04:56:00* Test Item Value Reference Range Interpretation Comments Folate (test code = 2284-8) 11.8 >3.0 A serum folate concentration of less than 3.1 ng/mL isconsidered to represent cl inical deficiency.Performed at: - [facility] [id number] Director: Hari Valentine MD, Phone: [phone] [facility]ne[facility]ST [facility]ING[facility] ([facility])2019-08-12 19:19:00 [facility] [address] [place] [address] Patient Name: EDWARD GONSALEZ MR #: [id number] : 1970 Age/Sex: 48/M Req #: [id number] Adm Physician: CHINA DUMONT MD Ordered by: NILSON RUBIO MD Report #: [id number] Location: ICU Room/Bed: ICU [facility] Procedure: [id number] DX /CHEST SINGLE (PORTABLE) Exam Date: 08/12/19 Exam Ti me: 1740 REPORT STATUS: Signed E XAMINATION: CHEST SINGLE (PORTABLE) INDICATION: LINE PLACEME NT [id number] 1740 COMPARISON: Chest radiograph 08/11/2019 FINDINGS: AP view TUBES and LINES: Interval placement of a right IJ c entral venous catheter with tip overlying the cavoatrial junction. Right and l eft PICC with tips overlying the cavoatrial junction, stable. Tracheostomy tub e and infradiaphragmatic NG/O NG tube are unchanged. LUNGS: Lungs are we ll inflated. Persistent diffuse bilateral interstitial and alveolar opacities . Bibasilar atelectasis. PLEURA: Small bilateral pleural effusion, uncha nged. No pneumothorax. HEART AND MEDIASTINUM: Prominent cardiac silhouette , unchanged. BONES AND SOFT TISSUES: No acute osseous lesion. Soft tiss ues are unremarkable. UPPER ABDOMEN: No free air under the diaphragm. IMPRESSION: Interval placement of a right IJ central venous catheter wi th tip overlying the cavoatrial junction. Guidewire appears to be in place. No pneumothorax. Persistent bilateral pulmonary edema and viral multifoc al pneumonia and small bilateral pleural effusions. Signed by: Dr. Gerardo Nazario M.D. on 08/12/2019 7:25 PM Dictated By: ROBERT NAZARIO MD 24 Transcribed By: EDNA on 08/12/191924 COPY TO: NILSON RUBIO Qayaintx9800-70-56 11:21:00* Test Item Value Reference Range Interpretation Comments Ferritin (test code = 2276-4) 2494.10 21.81-274.66 H [facility] Kakfx9785-84-73 10:23:00* Test Item Value Reference Range Interpretation Comments Iron Level (test code = 2498-4) 22 65-175 L [facility] MarcosTransferrin2020-04-07 10:23:00* Test Item Value Reference Range Interpretation Comments Transferrin (test code = 3034-6) < 70 174-364 L [facility] MarcosVitamin B12 Mdafr7246-89-23 10:21:00* Test Item Value Reference Range Interpretation Comments Vitamin B12 Level (test code = 23516-1) 576 213-816 [facility]cosPercent Reticulocyte Ayall3500-25-37 09:51:00* Test Item Value Reference Range Interpretation Comments Percent Reticulocyte Count (test code = 23159-5) 2.2 0.8-2 .2 [facility]VIEW (KUB)2019-08-12 01:57:00 [place] [address] Patient Name: EWDARD GONSALEZ MR #: [id number] : 1970 Age/Sex: 48/M Req #: [id number] Adm Physician: CHINA DUMONT MD Ordered by: BRIANDA PETIT MD Report #: [id number] Location: ICU Room/Bed: ICU [facility] Procedure: DX/AB DOMEN-1VIEW (KUB) Exam Date: 08/12/19 Exam Time: 011 0 REPORT STATUS: Signed KUB-2 vi ews INDICATION: Abd distention COMPARISON: KUB 08/09/2019. FINDINGS /IMPRESSION: Enteric tube terminates in the stomach. Temperature probe termina carli in the pelvis. Paucity of air in the small and large bowel without specifi c evidence of obstruction. No evidence of free intraperitoneal air. The bony s tructures are unremarkable. Signed by: Dr. Messi Ames MD on 08/12/2019 1: 58 AM Dictated By: MESSI AMES MD 7 Transcribed By: EDNA on 08/12/19157 COPY TO: BRIANDA ANDUJAR MD CHEST SINGLE (PORTABLE)2019-08-12 01:53:00 [place] [address] Patient Name: EDWARD GONSALEZ MR #: [id number] : 1970 Age/Sex: 48/M Req #: [id number] Adm Physician: CHINA DUMONT MD Ordered by: BRIANDA PETIT MD Report #: [id number] Location: ICU Room/Bed: ICU [facility] Procedure: DX/CH EST SINGLE (PORTABLE) Exam Date: 04/07/20 Exam Time: 0110 REPORT STATUS: Signed EXAM INATION: CHEST SINGLE (PORTABLE) INDICATION: Pneumonia COMPARISON : Multiple prior chest radiograph most recently 08/11/2019. FINDINGS: LINES/TUBES:Tracheostomy tube is unchanged. Left PICC line terminates at the b rachiocephalic confluence. Enteric tube terminates in the stomach. Overlying E KG leads. LUNGS:Unchanged bilateral mid and lower lung predominant intersti tial and airspace opacities. PLEURA:Small bilateral pleural effusions. No pneumothorax. MEDIASTINUM:The cardiomediastinal silhouette appears unchang ed in size and shape. BONES/SOFT TISSUES:No acute osseous injury. AB DOMEN:No free air under the diaphragm. IMPRESSION: Unchanged multifocal pneumonia and small bilateral pleural effusions. Lines and tubes as above. No evidence of pneumothorax. Signed by: Dr. Messi Ames MD on 08/12/2019 1:57 AM Dictated By: MESSI AMES MD 6 Transcribed By: EDNA on 08/12/19156 COPY TO: BRIANDA PETIT MD CHEST SINGLE (PORTABLE)2019-08-11 12:00:00 [place] [address] Patient Name: EDWARD GONSALEZ MR #: [id number] : 1970 Age/Sex: 48/M Req #: [id number] Adm Physician: CHINA DUMONT MD Ordered by: BEATRICE SCHMIDT MD Report #: [id number] Location: ICU Room/Bed: ICU [facility] Procedure: [id number] DX/ CHEST SINGLE (PORTABLE) Exam Date: 08/11/19 Exam Robert e: 1110 REPORT STATUS: Signed EX AMINATION: CHEST SINGLE (PORTABLE) INDICATION: Pneumonia COMPARIS ON: Multiple prior chest radiograph most recently 08/10/2019 FINDINGS: LINES/TUBES:Tracheostomy tube at the midthoracic trachea. Left PICC line t erminates in the superior vena cava. Enteric tube projects below the diaphragm with side port in the stomach and tip not visualized. EKG leads overlie the c hest. LUNGS:Unchanged bilateral lower lung predominant interstitial and air space opacities. PLEURA:Possible small bilateral pleural effusion. No pne umothorax. MEDIASTINUM:The cardiomediastinal silhouette appears unchanged i n size and shape. BONES/SOFT TISSUES:No acute osseous injury. ABDOME N:No free air under the diaphragm. IMPRESSION: No significant interva l change. Signed by: Heber Marino MD on 08/11/2019 12:02 PM Dictated By : HEBER MARINO MD 1202 Trans cribed By: EDNA on 08/11/19 1202 COPY TO: BEATRICE SCHMIDT MD Vancomycin Level Hlfnnh4281-32-79 09:12:00* Test Item Value Reference Range Interpretation Comments Vancomycin Level Trough (test code = 4092-3) 19.7 5.0-10.0 HH Results repeated and called to NITA KING at 0911 on 08/11/19 by Gee Long . Read back and verified.[facility] Slngb8197-75-30 06:45:00* Test Item Value Reference Range Interpretation Comments Triglycerides Level (test code = 2571-8) 269 0-149 H [facility] Ktsyt3819-96-53 06:45:00* Test Item Value Reference Range Interpretation Comments Cholesterol Level (test code = 2093-3) 117 0-199 Less than 200 mg/dL Low Svbp067 - 239 mg/dL Borderline Ixti011 m g/dl and greater High Risk [facility] Dxgqtywmawb1527-12-38 06:45:00* Test Item Value Reference Range Interpretation Comments LDL Cholesterol (test code = 2089-1) 48 60-130 L [facility] Fuvyshqsylj1513-09-13 06:45:00* Test Item Value Reference Range Interpretation Comments HDL Cholesterol (test code = 2085-9) 15 40-60 L [facility]/HDL Ictsd8570-65-79 06:45:00 * Test Item Value Reference Range Interpretation Comments Cholesterol/HDL Ratio (test code = 9830-1) 7.8 3.9-4.7 H [facility]cosDirect Oqfgqrkgr8404-08-38 22:34:00* Test Item Value Reference Range Interpretation Comments Direct Bilirubin (test code = 26836-0) 0.2 0.0-0.5 [facility]cosFibrinogen2020-04-05 22:31:00* Test Item Value Reference Range Interpretation Comments Fibrinogen (test code = 3255-7) 451 204462 [facility]cosLactic Acid Kyzgu5429-48-05 22:30:00* Test Item Value Reference Range Interpretation Comments Lactic Acid Level (test code = Lactic Acid Level) 1.0 0.5- 2.0 [facility]cos[facility]ST XRAY LINE RRPUNRBUI5755-36-43 17:23:00 [facility] [address] [place] [address] Patient Name: EDWARD GONSALEZ MR #: [id number] : 1970 Age/Sex: 48/M Req #: [id number] Adm Physician: CHINA DUMONT MD Ordered by: BRIANDA PETIT MD Report #: [id number] Location: ICU Room/Bed: [place] [address] Procedure: [id number] DX/CH EST XRAY LINE PLACEMENT Exam Date: 08/10/19 Exam Robert e: 1700 REPORT STATUS: Signed EX AMINATION: CHEST XRAY LINE PLACEMENT INDICATION: NEW RUE PICC [id number] COMPARISON: 08/09/2019 FINDINGS: AP view TUBES and LINES: Stable tracheostomy tube and left PICC. New right PICC with tip projecting over inferior SVC. LUNGS: Lungs are well inflated. Di ffuse bilateral airspace opacities, slightly improved in the upper lobes. PLEURA: No visible pneumothorax. Small bilateral pleural effusions, left gre ater than right. HEART AND MEDIASTINUM: The cardiomediastinal silhouette i s unremarkable. BONES AND SOFT TISSUES: No acute osseous lesion. Soft tissues are unremarkable. UPPER ABDOMEN: No free air under the diaphragm. IMPRESSION: New right PICC in place with tip projecting over infer ior SVC. No visible pneumothorax. Redemonstration of diffuse bilateral airsp alfie opacities, slightly improved in the upper lobes. Unchanged small bilater al pleural effusions, left greater then right. Signed by: Dr. Deirdre ramires MD on 08/10/2019 5:26 PM Dictated By: DEIRDRE VELA MD 25 Transcribed By: EDNA on 1725 COPY TO: BRINADA PETIT MD Urine Asjjn1626-72-05 10:00:00* Test Item Value Reference Range Interpretation Comments Urine Color (test code = 5778-6) YELLOW YELLOW [facility] Hwgqhog6527-19-49 10:00:00* Test Item Value Reference Range Interpretation Comments Urine Clarity (test code = 28923-5) SL CLOUDY CLEAR H [facility]cosU[facility] Specific Kcpwtcv0633-07-15 10:00:00 * Test Item Value Reference Range Interpretation Comments Urine Specific [place] (test code = 5811-5) 1.030 1.010-1.02 5 H [facility] vY8315-88-77 10:00:00* Test Item Value Reference Range Interpretation Comments Urine pH (test code = 70355-3) 5 5-7 [facility] Leukocyte Dbbchzif2482-47-91 10:00:00* Test Item Value Reference Range Interpretation Comments Urine Leukocyte Esterase (test code = 5799-2) NEGATIVE NEGATIVE [facility] Uqsibxp8387-04-73 10:00:00* Test Item Value Reference Range Interpretation Comments Urine Nitrite (test code = 35596-3) NEGATIVE NEGATIVE [facility] Zuhiuvn6414-04-34 10:00:00* Test Item Value Reference Range Interpretation Comments Urine Protein (test code = 5804-0) 1+ NEGATIVE H [facility] Glucose (UA)2019-08-10 10:00:00* Test Item Value Reference Range Interpretation Comments Urine Glucose (UA) (test code = 2349-9) 1+ NEGATIVE H [facility] Zzvruab4047-06-34 10:00:00* Test Item Value Reference Range Interpretation Comments Urine Ketones (test code = 93785-8) NEGATIVE NEGATIVE [facility] Brajniykeaya5226-90-12 10:00:00* Test Item Value Reference Range Interpretation Comments Urine Urobilinogen (test code = 40526-0) 0.2 0.2-1 [facility] Meznfjdrj1241-30-38 10:00:00* Test Item Value Reference Range Interpretation Comments Urine Bilirubin (test code = 1978-6) SMALL NEGATIVE [facility] Ahldj8718-83-21 10:00:00* Test Item Value Reference Range Interpretation Comments Urine Blood (test code = 09883-4) TRACE NEGATIVE H [facility] KIR6334-03-93 10:00:00* Test Item Value Reference Range Interpretation Comments Urine WBC (test code = 5821-4) 6-10 0-5 H [facility] KNT0564-10-21 10:00:00* Test Item Value Reference Range Interpretation Comments Urine RBC (test code = 57536-2) 6-10 0-5 H [facility] Ftlxzkit9993-54-23 10:00:00* Test Item Value Reference Range Interpretation Comments Urine Bacteria (test code = 57987-6) FEW NONE [facility] Epithelial Mulax0888-26-50 10:00:00 * Test Item Value Reference Range Interpretation Comments Urine Epithelial Cells (test code = 59150-4) FEW NONE [facility] Acvqh1929-67-62 10:00:00* Test Item Value Reference Range Interpretation Comments Urine Mucus (test code = 8247-9) FEW RARE H [facility] MarcosABDOMEN-1VIEW (KUB)2019-08-10 00:08:00 [facility] [address] [place] [address] Patient Name: EDWARD GONSALEZ MR #: [id number] : 1970 Age/Sex: 48/M Req #: [id number] Adm Physician: CHINA DUMONT MD Ordered by: BRIANDA PETIT MD Report #: [id number] Location: ICU Room/Bed: ICU [facility] Procedure: [id number] DX/AB DOMBERNADETTE-1VIEW (KUB) Exam Date: 08/09/19 Exam Time: 232 0 REPORT STATUS: Signed Abdomen/ KUB INDICATION: ABD DISTENTION, HIGH TUBE FEED RESIDUALS Y COM PARISON: Abdomen x-ray 08/07/2019. FINDINGS: Portable, supine image obtain ed at 2341 hours. Medical Devices: Enteric tube terminates in the proximal stomach. Temperature probe in the lower pelvis. Bowel: Unremarkable bowel gas pattern. No dilated bowel loops. No pneumatosis. Free air: None Abdominal calcifications: None Organomegaly: None Bones: Unremarkable IMPRESSION: Enteric tube terminates in the proximal stomach. Unremarka ble bowel gas pattern. Signed by: Dr. Daysi Pittman MD on 08/10/2019 1 2:12 AM Dictated By: DAYSI PITTMAN MD Transcribed By: EDNA on 08/10/1911 COPY TO: BRIANDA PETIT MD CHEST SINGLE (PORTABLE)2019-08-10 00:06:00 [facility] [address] [place] [address] Patient Name: EDWARD GONSALEZ MR #: [id number] : 1970 Age/Sex: 48/M Req #: [id number] Adm Physician: CHINA DUMONT MD Ordered by: BRIANDA PETIT MD Report #: [id number] Location: ICU Room/Bed: ICU [facility] Procedure: [id number] DX/CH EST SINGLE (PORTABLE) Exam Date: 08/09/19 Exam Time: 2319 REPORT STATUS: Signed EXAM INATION: CHEST SINGLE (PORTABLE) COMPARISON: Chest x-ray 0812 hours INDICATION: Pneumonia, sepsis, ARDS ARDs Y DISCUSSION: Frontal view of the chest obtained at 2337 hours. HEART AND MEDIASTINUM: The heart is normal in size LINES: Tracheostomy is midline. Left PICC line termi nates in the SVC. Enteric tube extends past the diaphragm LUNGS/PLEURA: Multifocal infiltrates are redemonstrated without significant change. Small bi lateral pleural effusions. No pneumothorax BONES AND SOFT TISSUES: Stable. IMPRESSION: No change in multifocal infiltrates and small pleural ef fusions. Medical devices as described above. Signed by: Dr. Daysi Pittman MD on 08/10/2019 12:08 AM Dictated By: DAYSI PITTMAN MD Elect ronically Signed By: DAYSI PITTMAN MD on 08/10/197 Transcribed By: ELISEO SILVA on 08/10/197 COPY TO: BRIANDA PETIT MD CHEST (INCL MEDIASTINUM)2019-08-09 15:22:00 [place] [address] Patient Name: EDWARD GONSALEZ MR #: [id number] : 1970 Age/Sex: 48/M Req #: [id number] Adm Physician: CHINA DUMONT MD Ordered by: BRIANDA PETIT MD Report #: [id number] Location: ICU Room/Bed: ICU 192-1 Procedure: [id number] US/US CHEST (INCL MEDIASTINUM) Exam Date: 08/09/19 Exam T rita: 1412 REPORT STATUS: Signed Normal ultrasound images were obtained as patient became unstable. Signed b y: Bhupendra Langford MD on 08/09/2019 3:23 PM Dictated By: BHUPENDRA RUELAS MD 152 Transcri bed By: EDNA on 08/09/19 152 COPY TO: BRIANDA PETIT MD CHEST SINGLE (PORTABLE)2019-08-09 09:55:00 [place] [address] Patient Name: EDWARD GONSALEZ MR #: [id number] : 1970 Age/Sex: 48/M Req #: [id number] Adm Physician: CHINA DUMONT MD Ordered by: BRIANDA PETIT MD Report #: [id number] Location: ICU Room/Bed: ICU 192-1 Procedure: [id number] DX/CH EST SINGLE (PORTABLE) Exam Date: Exam Time: REPORT STATUS: Signed EXAMINATION: CH EST SINGLE (PORTABLE) INDICATION: Endotracheal tube placement, enteric tube placement COMPARISON: Chest radiograph of FINDINGS: LINES/TUBES:Endotracheal tube has been removed and there is a new tracheost shweta tube in place. Enteric tube with tip and side-port in the stomach. EKG raina ds overlie the chest. LUNGS:Unchanged bilateral lower lung predominant duff zy airspace opacities. PLEURA:New obscuration of the left costophrenic angl e likely due to effusion. MEDIASTINUM:The cardiomediastinal silhouette appe ars unchanged in size and shape. BONES/SOFT TISSUES:No acute osseous inju ry. ABDOMEN:No free air under the diaphragm. IMPRESSION: Unchang ed bilateral lower lung predominant hazy airspace opacities which could be due to pneumonia. New obscuration of the left costophrenic angle likely due to effusion. Signed by: Bhupendra Langford MD on 08/09/2019 10:00 AM Dic tated By: BHUPENDRA LANGFORD MD 1000 COPY TO: BRIANDA PETIT MD Sbyqdqfgbabdm3818-76-51 16:44:00* Test Item Value Reference Range Interpretation Comments Procalcitonin (test code = 641500129) 0.83 0.00-0.08 H A procalcitonin (PCT) level above 2.0 ng/mL on the firstday of ICU admission is associated with a high risk forprogression to severe sepsis and/or septic shock. A PCT level below 0.5 ng/mL on the first day of ICUadmission is associated with a low risk for progressionto severe sepsis and/or septic shock.Note: Concentrati ons <0.5 ng/mL do not exclude aninfection, on account of localized infections (withoutsystemic signs) which can be associated with such lowconcentrations, or a systemic infection in its initialstages (<6 hours).Furthermore, increased procalcitonin can occur withoutinfection. PCT concentrations between 0.5 and 2.0 ng/mLshould be interpreted taking into account the patient'shistory. It is recommended to retest PCT within 6-24 hoursif any concentrations <2 ng/mL are obtained.Performed at: - [facility] [address] [id number] Director: Hari Valentine MD, Phone: [phone] [facility] SINGLE (PORTABLE)2019-08-08 15:09:00 [facility] [address] [place] [address] Patient Name: EDWADR GONSALEZ MR #: [id number] : 1970 Age/Sex: 48/M Req #: [id number] Adm Physician: CHINA DUMONT MD Ordered by: CHINA DUMONT MD Report #: [id number] Location: ICU Room/Bed: ICU [facility] Procedure: [id number] DX /CHEST SINGLE (PORTABLE) Exam Date: Exam Time: REPORT STATUS: Signed EXAMINATION: CHEST SINGLE (PORTABLE) INDICATION: Endotracheal tube placement, enter ic tube placement COMPARISON: Chest radiograph of 08/07/2019 FINDIN GS: LINES/TUBES:Endotracheal tube terminates 4.5 cm above the georgi. Left PICC line terminates in the SVC. Enteric tube with tip and side-port in the [facility]. EKG leads overlie the chest. LUNGS:Unchanged bilateral lower lung predominant hazy airspace opacities. PLEURA:No pleural effusion or pneumoth orax. MEDIASTINUM:The cardiomediastinal silhouette appears unchanged in siz e and shape. BONES/SOFT TISSUES:No acute osseous injury. ABDOMEN:No free air under the diaphragm. IMPRESSION: Lines and tubes as above. Otherwise, no significant interval change. Signed by: Heber Marino MD on 08/08/2019 3:11 PM Dictated By: HEBER MARINO MD 10 Transcribed By: EDNA on 08/08/191510 CO PY TO: CHINA DUMONT MD C-Reactive Gcypsok0949-12-87 06:17:00* Test Item Value Reference Range Interpretation Comments C-Reactive Protein (test code = 1988-5) 79 0-10 H Performed at: HD - [facility] [address] [id number] Director: Hari Valentine MD, Phone: [phone] [facility] 1 PBWX0293-93-18 18:31:00 [place] [address] Patient Name: EDWARD GONSALEZ MR #: [id number] : 1970 Age/Sex: 48/M Req #: [id number] Adm Physician: CHINA DUMONT MD Ordered by: BRIANDA PETIT MD Report #: [id number] Location: ICU Room/Bed: [place] [address] Procedure: [id number] DX/SH OULDER LEFT 1 VIEW Exam Date: 08/07/19 Exam Time: 18 00 REPORT STATUS: Signed SHOULDE R 1 VIEW -one view HISTORY: Possible Dislocation COMPARISON: None avai lable. FINDINGS: Bones: No acute displaced fracture. Osseous a lignment is within normal limits. Joints: The joint spaces are well-maint ained. Soft tissues: The soft tissues appear unremarkable. IMPRESSIO N: No evidence of dislocation although complete views was not performed. Florian mmend obtaining complete views of the shoulder. Signed by: Bhupendra osborne MD on 08/07/2019 6:32 PM Dictated By: BHUPENDRA LANGFORD MD Electronic ally Signed By: BHUPENDRA LANGFORD MD on 08/07/191831 Transcribed By: EDNA prieto 08/07/191831 COPY TO: BRIANDA PETIT MD ABDOMEN-1VIEW (KUB) 2019-08-07 03:00:00 [place] [address] Patient Name: EDWARD GONSALEZ MR #: [id number] : 1970 Age/Sex: 48/M Req #: [id number] Adm Physician: CHINA DUMONT MD Ordered by: CHINA DUMONT MD Report #: [id number] Location: ICU Room/Bed: ICU [facility] Procedure: [id number] DX /ABDOMEN-1VIEW (KUB) Exam Date: Exam Time: REPORT STATUS: Signed Abdomen/KUB INDICATION: Constipation Y COMPARISON: Chest x-ray 0226 hours. FINDINGS: Portable, supine image obtained at 0243 hours. The image is motion degraded. Medical Devices: Enteric tube terminates in the proximal stomach. Abreu catheter with temperature sensor in the midline pelvis. Bowel: Un remarkable bowel gas pattern. No dilated bowel loops. No significant stool bur den. Free air: None Abdominal calcifications: None Organomegaly: None Lung bases: Patchy bilateral pulmonary infiltrates. Bones: Unrem arkable IMPRESSION: No significant stool burden. Unremarkable bowel g as pattern. Medical devices as described above. Signed by: Dr. Charu Pittman MD on 08/07/2019 3:05 AM Dictated By: DAYSI PITTMAN MD Jessica ctronically Signed By: DAYSI PITTMAN MD on 08/07/19304 Transcribed By: JUVENAL RIOJAS on 08/07/19304 COPY TO: CHINA DUMONT MD CHEST XRAY LINE ORTROAENV9384-04-59 02:37:00 [place] [address] Patient Name: EDWARD GONSALEZ MR #: [id number] : 1970 Age/Sex: 48/M Req #: [id number] Adm Physician: CHINA DUMONT MD Ordered by: BRIANDA PETIT MD Report #: [id number] Location: ICU Room/Bed: ICU [facility] Procedure: [id number] DX/CH EST XRAY LINE PLACEMENT Exam Date: 08/07/19 Exam Robert e: 209 REPORT STATUS: Signed ADDENDUM #1 VOICE RECOGNITION ERROR: Endotracheal t ube terminates 5 to 6 cm above the georgi. Signed by: Dr. Daysi Pittman MD on 08/07/2019 4:36 AM ORIGINAL REPORT EXAMINATION: CHEST X-RAY LINE PLACEMENT COMPARISON: Chest x-ray 08/05/2019, chest x-r ay 08/06/2019 INDICATION: Post PICC Line Insertion [id number] Y DISCUSSION: Frontal view of the chest obtained at 0226 hours. HEART AND MEDIASTINUM: The heart is normal in size LINES: Endotracheal tube terminates 5 to 6 cm above the clavicle. Enteric tube extends past the d iaphragm. Left PICC line terminates in the SVC. No pneumothorax. LUNGS: Improved aeration of the lungs. Bilateral pulmonary infiltrates are stable, ri ght lung more severe than the left. PLEURA: No large effusions. No pneumot horax. BONES AND SOFT TISSUES: Stable. IMPRESSION: Left PICC li ne terminates in the SVC without pneumothorax. Other support devices as descri bed above. Stable pulmonary infiltrates. Signed by: Dr. Daysi Crews MD on 08/07/2019 2:40 AM Dictated By: DAYSI PITTMAN MD Electronic ally Signed By: DAYSI PITTMAN MD on 08/07/19 3051 Transcribed By: EDNA prieto 08/07/19 0240 COPY TO: BRIANDA PETIT MD Urine Hyaline Casts 2019-08-07 02:31:00* Test Item Value Reference Range Interpretation Comments Urine Hyaline Casts (test code = 21986-4) 6-10 0-1 H [facility] Fine Granular Vbyop4734-12-76 02:31:00* Test Item Value Reference Range Interpretation Comments Urine Fine Granular Casts (test code = 46502-4) 1-5 >0 H [facility] Coarse Granular Qojmr2720-59-14 02:31:00* Test Item Value Reference Range Interpretation Comments Urine Coarse Granular Casts (test code = 37341-1) 1-5 >0 H [facility] SING[facility] (PORTABLE)2019-08-06 11:31:00 [facility] [address] [place] [address] Patient Name: EDWARD GONSALEZ MR #: [id number] : 1970 Age/Sex: 48/M Req #: [id number] Adm Physician: CHINA DUMONT MD Ordered by: BRIANDA PETIT MD Report #: [id number] Location: ICU Room/Bed: ICU 192 Procedure: [id number] DX/CH EST SINGLE (PORTABLE) Exam Date: 08/06/19 Exam Time: 1030 REPORT STATUS: Signed EXAM: CHEST SINGLE (PORTABLE) DATE: 08/06/2019 9:00 AM INDICATION: Intuba eulalia COMPARISON: 08/05/2019 FINDINGS: Endotracheal tube tip again id entified with distal tip terminating approximately 4.6 cm above georgi. Enteri c tube noted coursing below the diaphragm. Right-sided PICC line identified in stable position. The trachea is midline. Again identified are bilateral ai rspace opacities within the lower lung zone predominance, unchanged from the p rior examination. Trace pleural effusions are possible. No significant pleural effusion is present. The cardiomediastinal silhouette is unchanged in size/ap pearance. No acute osseous abnormality is identified. IMPRESSION: No significant interval change from 08/05/2019. Unchanged bilateral lower l caleb zone predominant airspace opacities. Signed by: Dr. Jn Charles MD on 08/06/2019 11:33 AM Dictated By: JN CHARLES MD 1133 Transcribed By: EDNA on 08/06/19 1133 COPY TO: BRIANDA PETIT MD CHEST SINGLE (PORTABLE)2019-08-05 14:31:00 [place] [address] Patient Name: EDWARD GONSALEZ MR #: [id number] : 1970 Age/Sex: 48/M Req #: [id number] Adm Physician: CHINA DUMONT MD Ordered by: BRIANDA PETIT MD Report #: [id number] Location: ICU Room/Bed: ICU [facility] Procedure: [id number] DX/CH EST SINGLE (PORTABLE) Exam Date: 08/05/19 Exam Time: 1300 REPORT STATUS: Signed EXAM INATION: CHEST SINGLE (PORTABLE) INDICATION: Pneumonia COMPARISON : Multiple prior chest radiographs most recently 07/08/2019 FINDINGS: LINES/TUBES:Endotracheal tube terminates 4 cm above the georgi. Enteric tube projects the diaphragm out of the dzrzw-vr-nrnr. Right PICC line terminates in the superior vena cava. EKG leads overlie the chest. LUNGS:The lungs are moderately inflated. Unchanged bilateral lower lung predominant airspace opac ities and consolidation. PLEURA:No pleural effusion or pneumothorax. MEDIASTINUM:The cardiomediastinal silhouette appears unchanged in size and sha pe. BONES/SOFT TISSUES:No acute osseous injury. ABDOMEN:No free air un negrita the diaphragm. IMPRESSION: Unchanged bilateral lower lung airspac e opacities and consolidation. Signed by: Heber Marino MD on 08/05/2019 2:39 PM Dictated By: HEBER MARINO MD 1439 Transcribed By: EDNA on 08/05/19 1439 COPY TO: BRIANDA PETIT MD CHEST SINGLE (PORTABLE)2019-08-04 11:50:00 [place] [address] Patient Name: EDWARD GONSALEZ MR #: [id number] : 1970 Age/Sex: 48/M Req #: [id number] Adm Physician: CHINA DUMONT MD Ordered by: BEATRICE SCHMIDT MD Report #: [id number] Location: ICU Room/Bed: ICU [facility] Procedure: [id number] DX/ CHEST SINGLE (PORTABLE) Exam Date: 08/04/19 Exam Orbert e: 1102 REPORT STATUS: Signed EX AMINATION: CHEST SINGLE (PORTABLE) INDICATION: Respiratory failure, pn eumonia COMPARISON: Chest radiograph 08/03/2019, chest CT 07/23/2019 FINDINGS: LINES/TUBES:Endotracheal tube terminates 3.8 cm above the shanta a. Enteric tube projects below the diaphragm with tip not visualized. Right PI CC line terminates in the superior vena cava. EKG leads overlie the chest. LUNGS:The lungs are moderately inflated. Unchanged bilateral lower lobe pred ominant airspace opacities. PLEURA:No pleural effusion or pneumothorax. MEDIASTINUM:The cardiomediastinal silhouette appears unchanged in size and s hape. BONES/SOFT TISSUES:No acute osseous injury. ABDOMEN:No free air under the diaphragm. IMPRESSION: Unchanged bilateral lower lung predo minant airspace opacities. Lines and tubes as above. Signed by: Javy Marino MD on 08/04/2019 11:52 AM Dictated By: HEBER MARINO MD 1152 Transcribed By: EDNA on 08/04/19 1152 COPY TO: BEATRICE SCHMIDT MD CHEST SINGLE (PORTABLE)2019-08-03 23:33:00 [place] [address] Patient Name: EDWARD GONSALEZ MR #: [id number] : 1970 Age/Sex: 48/M Req #: [id number] Adm Physician: CHINA DUMONT MD Ordered by: BEATRICE SCHMIDT MD Report #: [id number] Location: ICU Room/Bed: ICU [facility] Procedure: [id number] DX/ CHEST SINGLE (PORTABLE) Exam Date: 08/03/19 Exam Robert e: 2320 REPORT STATUS: Signed EX AMINATION: CHEST SINGLE (PORTABLE) INDICATION: ET tube advancement, ve rify position COMPARISON: Chest x-ray 08/03/2019 FINDINGS: TUBES and LINES: The ET tube has been advanced, tip now 2.2 cm above shanta a.. Enteric tube courses into abdomen, tip out of field of view. Right upper extremity PICC tip terminates at the superior cavoatrial junction. LUNGS: Large lung volumes. Diffuse haziness of the right midlung worse in the mid and lower lung where there are consolidative basilar opacities. Haziness and left mid and lower lung, worst in the lower lung where there are consolidative opa cities. PLEURA: No pleural effusion or pneumothorax. HEART AND MEDI ASTINUM: The cardiomediastinal silhouette is unremarkable. BONES AND S OFT TISSUES: No acute osseous lesion. Soft tissues are unremarkable. UP PER ABDOMEN: No free air under the diaphragm. IMPRESSION: The ET tube is now 2.2 cm above the georgi, slightly low if the patient's head is in neutral position. [place] position of endotracheal tube tip above the georgi for different head positions -Head flexed: 3 cm (?2 cm) above georgi -Head neutral: 5 cm (?2 cm) above georgi -Head extended: 7 cm (?2 cm) above georgi Persistent findings of ARDS. Signed by: Bruno Junior DO on 07/06 11:48 PM Dictated By: BRUNO JUNIOR DO 2348 Transcribed By: EDNA on 08/03/19 234 8 COPY TO: BEATRICE SCHMIDT MD CHEST SINGLE (PORTABLE)2019-08-03 21:44:00 [place] [address] Patient Name: EDWARD GONSALEZ MR #: [id number] : 1970 Age/Sex: 48/M Req #: [id number] Adm Physician: CHINA DUMONT MD Ordered by: BEATRICE SCHMIDT MD Report #: [id number] Location: ICU Room/Bed: ICU 1921 Procedure: [id number] DX/ CHEST SINGLE (PORTABLE) Exam Date: 08/03/19 Exam Robert e: 2029 REPORT STATUS: Signed EX AMINATION: CHEST SINGLE (PORTABLE) INDICATION: Bilateral pneumonia COMPARISON: Chest x-ray 08/01/2019, 07/28/2069, 07/28/2019 FINDINGS: TUBES and LINES: The ET tube tip is 10 cm above the georgi. Right upper extremity PICC tip terminates in the superior cavoatrial junction. Enteric tube courses into abdomen, tip out of field of view. LUNGS: Lungs are hyperinflated. Increased haziness in the mid to lower lungs now with some cons olidative opacities and bronchograms. Partially obscured portions of the mt diaphragms. PLEURA: No pleural effusion or pneumothorax. HEART AN D MEDIASTINUM: The cardiomediastinal silhouette is unremarkable. BONES AND SOFT TISSUES: No acute osseous lesion. Soft tissues are unremarkable. UPPER ABDOMEN: No free air under the diaphragm. IMPRESSION: The ET tube tip is 10 cm above the georgi, recommend 5 cm advancement. Worse misbah diffuse airspace disease of ARDS since 07/29/2019. Trace pleural effusions are possible. Findings discussed with ICU nurse Jose at 9:50 PM on 08/[address] Junior via telephone. Signed by: Bruno Junior DO on 08/02 9:55 PM Dictated By: BRUNO JUNIOR DO 54 Transcribed By: EDNA on 08/03/192154 COPY TO: BEATRICE SCHMIDT MD Blood Afvwxpd1211-77-78 08:59:00* Test Item Value Reference Range Interpretation Comments Blood Culture (test code = 600-7) No Result Data [facility]ided [facility] [id number] 21:28:00 [facility] [address] [place] [address] Patient Name: EDWARD GONSALEZ MR #: [id number] : 1970 Age/Sex: 48/M Req #: [id number] Adm Physician: CHINA DUMONT MD Ordered by: BRIANDA PETIT MD Report #: [id number] Location: ICU Room/Bed: ICU 192 Procedure: [id number] DX/CH EST XRAY LINE PLACEMENT Exam Date: 08/01/19 Exam Robert e: 2109 REPORT STATUS: Signed EX AMINATION: CHEST XRAY LINE PLACEMENT INDICATION: PICC line placem ent, verify position COMPARISON: Chest x-ray 07/29/2019 FINDINGS: TUBES and LINES: New right upper extremity PICC, tip terminates in the superior cavoatrial atrial junction. Right IJ CVC unchanged, tip at the [place] perior cavoatrial junction. ET tube tip 6.8 cm above georgi. Enteric tube unch anged, courses into abdomen, tip out of field of view. LUNGS: Right mid/low er lung haziness. There is obscuration of the hemidiaphragms. Left lower lung consolidation. PLEURA: No pleural effusion or pneumothorax. HEART AND MEDIASTINUM: The cardiomediastinal silhouette is unremarkable. BONES AND SOFT TISSUES: No acute osseous lesion. Soft tissues are unremarkable. UPPER ABDOMEN: No free air under the diaphragm. IMPRESSION: New righ t upper extremity PICC, tip terminates in the superior cavoatrial atrial junct ion. ET tube tip 6.8 cm above georgi, consider advancement. Persisten t findings concerning of multifocal pneumonia/ ARDS. Superimposed edema is pos sible. Signed by: Bruno Junior DO on 08/01/2019 10:28 PM Dictated By: BRUNO JUNIOR DO 27 COPY TO: BRIANDA PETIT Myelocytes %2019-07-31 07:27:00* Test Item Value Reference Range Interpretation Comments Myelocytes % (test code = 749-2) 1 0-0 H [facility] SINGLE (PORTABLE)2019-07-29 10:20:00 [place] [address] Patient Name: EDWARD GONSALEZ MR #: [id number] : 1970 Age/Sex: 48/M Req #: [id number] Adm Physician: CHINA DUMONT MD Ordered by: BRIANDA PETIT MD Report #: [id number] Location: ICU Room/Bed: ICU [facility] Procedure: [id number] DX/ EST SINGLE (PORTABLE) Exam Date: Exam Time: REPORT STATUS: Signed TECHNIQUE: Front al view of the chest. INDICATION: 48-year-old man with respiratory failure. COMPARISON: Chest radiograph 07/28/2019. FINDINGS: LINES/TUBES: Unchanged. LUNGS: Increased bilateral airspace opacities. PLEURA: No pneumothorax or significant pleural effusion. HEART AND MEDIASTINUM: The c ardiomediastinal silhouette is unchanged. SOFT TISSUES AND BONES: Unremarka ble. IMPRESSION: Increased bilateral airspace opacities. Differential considerations include worsened pulmonary edema or aspiration/pneumonia. Otherwise, no significant change since 07/28/2019. Signed by: Leonel Shelton MD on 07/29/2019 10:22 AM Dictated By: LEONEL SHELTON MD 102 Transcribed By: EDNA on 07/28 102 COPY TO: BRIANDA PETIT MD CHEST SINGLE (PORTABLE) 2019-07-28 08:31:00 [place] [address] Patient Name: EDWARD GONSALEZ MR #: [id number] : 1970 Age/Sex: 48/M Req #: [id number] Adm Physician: CHINA DUMONT MD Ordered by: BRIANDA PETIT MD Report #: [id number] Location: ICU Room/Bed: ICU [facility] Procedure: [id number] DX/CH EST SINGLE (PORTABLE) Exam Date: 07/28/19 Exam Time: 0745 REPORT STATUS: Signed Ches t, portable AP view History: Respiratory failure Comparison: 07/27/2019 , chest CT dated 07/23/2019 IMPRESSION: The tip of the endotracheal tub e terminates approximately 5.9 cm above the georgi. The heart is unchanged in size and configuration. There are unchanged bilateral airspace opacities. No s izable pleural effusion or pneumothorax. Signed by: Blayne Quinonez MD on 07/28/2019 8:33 AM Dictated By: BLAYNE QUINONEZ MD 2 Transcribed By: EDNA on 07/28/19832 COPY TO: BRIANDA PETIT MD CHEST SINGLE (PORTABLE)2019-07-27 09:19:00 [place] [address] [place] [address] Patient Name: EDWARD GONSALEZ MR #: [id number] : 1970 Age/Sex: 48/M Req #: [id number] Adm Physician: CHINA DUMONT MD Ordered by: BRIANDA PETIT MD Report #: [id number] Location: ICU Room/Bed: ICU [facility] Procedure: [id number] DX/CH EST SINGLE (PORTABLE) Exam Date: 07/27/19 Exam Time: 0815 REPORT STATUS: Signed Exam ination: Single AP view of the chest. COMPARISON: Multiple prior studies INDICATION: Pneumonia DISCUSSION: Lines/tubes: Endotracheal t ube in stable position. Enteric tube and right IJ catheter stable. Lungs: Stable bilateral groundglass opacities and more dense consolidation in the l eft lower lobe. Pleura: There is no pleural effusion or pneumothorax. Heart and mediastinum: The heart and the mediastinum are unremarkable. Miguel isak and soft tissues: No acute bony abnormalities. IMPRESSION: 1. Stable bilateral groundglass opacities and more dense consolidation in the left lower lobe. Signed by: Dr. Meredith Ventura M.D. on 07/27/2019 9:21 AM Dictated By: MEREDITH VENTURA MD 0 Transcribed By: EDNA on 07/27/19920 COPY TO : BRIANDA PETIT MD CHEST SINGLE (PORTABLE)2019-07-26 09:18:00 [place] [id number] Patient Name: EDWARD GONSALEZ MR #: [id number] : 1970 Age/Sex: 48/M Req #: [id number] Adm Physician: CHINA DUMONT MD Ordered by: BRIANDA PETIT MD Report #: [id number] Location: ICU Room/Bed: ICU [facility] Procedure: [id number] DX/CH EST SINGLE (PORTABLE) Exam Date: 07/26/19 Exam Time: 906 REPORT STATUS: Signed EXAM INATION: CHEST SINGLE (PORTABLE) INDICATION: Respiratory failure COMPARISON: Chest radiograph 07/25/2019, chest CT 07/23/2019 FINDINGS: LINES/TUBES:Endotracheal tube terminates 5.2 cm above the georgi. Enteric tu be terminates in the stomach. Right IJ central venous catheter terminates at t he cavoatrial junction. LUNGS:The lungs are moderately inflated. Persiste nt bilateral hazy and patchy airspace opacities. PLEURA:No pleural effusi on or pneumothorax. MEDIASTINUM:The cardiomediastinal silhouette appears no rmal in size and shape. BONES/SOFT TISSUES:No acute osseous injury. AB DOMEN:No free air under the diaphragm. IMPRESSION: Unchanged bilateral i nterstitial and patchy airspace opacities, which may represent multifocal pneu monia. Signed by: Dr. Messi Ames MD on 07/26/2019 9:20 AM Dictated By: MESSI AMES MD 9 Tra nscribed By: EDNA on 07/26/19919 COPY TO: BRIANDA PETIT MD Toxic Zijgzvbmtqm1115-01-36 08:13:00* Test Item Value Reference Range Interpretation Comments Toxic Granulation (test code = 803-7) SLIGHT [facility] SINGLE (PORTABLE)2019-07-25 09:03:00 [facility] [address] [place] [address] Patient Name: EDWARD GONSALEZ MR #: [id number] : 1970 Age/Sex: 48/M Req #: [id number] Adm Physician: CHINA DUMONT MD Ordered by: BRIANDA PETIT MD Report #: [id number] Location: ICU Room/Bed: ICU [facility] Procedure: [id number] DX/CH EST SINGLE (PORTABLE) Exam Date: 07/25/19 Exam Time: 0830 REPORT STATUS: Signed EXAM INATION: CHEST SINGLE (PORTABLE) INDICATION: Respiratory failure COMPARISON: Chest radiograph 07/23/2019, chest CT 07/23/2019 FINDINGS: LINES/TUBES:Endotracheal tube terminates 4 cm above the georgi. Enteric tube terminates in the stomach. Right IJ central venous catheter terminates at the superior cavoatrial junction. LUNGS:The lungs are moderately inflated, s lightly improved from the prior study of 07/23/2019. Persistent bilateral hazy and patchy airspace opacities. PLEURA:No pleural effusion or pneumothorax. MEDIASTINUM:The cardiomediastinal silhouette appears normal in size and sha pe. BONES/SOFT TISSUES:No acute osseous injury. ABDOMEN:No free air un negrita the diaphragm. IMPRESSION: Slightly improved lung aeration. No si gnificant change in persistent bilateral airspace opacities when accounting fo r differences in lung volume. Signed by: Heber Marino MD on 07/25/2019 9:05 A M Dictated By: HEBER MARINO MD 4 Transcribed By: EDNA on 07/25/19904 COPY TO: Kirti PETIT MD Chlamydia pneumoniae DNA (PCR)2019-07-25 05:35:00* Test Item Value Reference Range Interpretation Comments Chlamydia pneumoniae DNA (PCR) (test code = Chlamydia pneumoniae DNA (PCR)) NEGATIVE NEGATIVE Test performed at [address] [place], [place] [address]Influenza Type A (RT-PCR)2019-07-25 05:35:00* Test Item Value Reference Range Interpretation Comments Influenza Type A (RT-PCR) (test code = 137679923) NEGATIVE NEGA TIVE Test performed at [address] [place], [place] [address]Mycoplasma pneumoniae (PCR)2019-07-25 05:35:00* Test Item Value Reference Range Interpretation Comments Mycoplasma pneumoniae (PCR) (test code = Mycoplasma pneumoni ae (PCR)) NEGATIVE NEGATIVE [facility]2019-07-25 05:35:00* Test Item Value Reference Range Interpretation Comments Influenza Type B (RT-PCR) (test code = 462979784) NEGATIVE NEGA TIVE Test performed at [address] Syncytial Virus (PCR) 2019-07-25 05:35:00* Test Item Value Reference Range Interpretation Comments Respiratory Syncytial Virus (PCR) (test code = 330183627) NEGATIVE NEGATIVE Test performed at [address]ordetella pertussis DNA (PCR) 2019-07-25 05:35:00* Test Item Value Reference Range Interpretation Comments Bordetella pertussis DNA (PCR) (test code = 327093672) NEGATIVE NEGATIVE Test performed at [address]ainfluenza Type 1 (PCR)2019-07-25 05:35:00* Test Item Value Reference Range Interpretation Comments Parainfluenza Type 1 (PCR) (test code = 756292801) NEGATIVE NEG ATIVE Test performed at [address] [facility] ([facility])2019-07-25 05:35:00* Test Item Value Reference Range Interpretation Comments Parainfluenza Type 2 (PCR) (test code = 962916166) NEGATIVE NEG ATIVE Test performed at [address] [place], [place] [address]Parainfluenza Type 3 (PCR)2019-07-25 05:35:00* Test Item Value Reference Range Interpretation Comments Parainfluenza Type 3 (PCR) (test code = 400933385) NEGATIVE NEG ATIVE Test performed at [address] [place], [place] [address]Parainfluenza Type 4 (PCR)2019-07-25 05:35:00* Test Item Value Reference Range Interpretation Comments Parainfluenza Type 4 (PCR) (test code = Parainfluenza Type 4 (PCR)) NEGATIVE NEGATIVE Test performed at [address] [place], [place] [address]Rhinovirus (PCR)2019-07-25 05:35:00* Test Item Value Reference Range Interpretation Comments Rhinovirus (PCR) (test code = 180219575) NEGATIVE NEGATIVE Test performed at [address] [place], [place] [address]Human Metapneumovirus (PCR)2019-07-25 05:35:00* Test Item Value Reference Range Interpretation Comments Human Metapneumovirus (PCR) (test code = 727771243) NEGATIVE NE GATIVE Test performed at [address] [place], [place] [address]Adenovirus (PCR)2019-07-25 05:35:00* Test Item Value Reference Range Interpretation Comments Adenovirus (PCR) (test code = 855806464) NEGATIVE NEGATIVE Test performed at [address] [place], [place] [address]Coronavirus Type HKU1 (PCR)2019-07-25 05:35:00* Test Item Value Reference Range Interpretation Comments Coronavirus Type HKU1 (PCR) (test code = Coronavirus Type HK U1 (PCR)) NEGATIVE NEGATIVE Test performed [address] Type NL63 (PCR)2019-07-25 05:35:00* Test Item Value Reference Range Interpretation Comments Coronavirus Type NL63 (PCR) (test code = Coronavirus Type NL 63 (PCR)) NEGATIVE NEGATIVE Test performed at [address]avirus Type OC43 (PCR)2019-07-25 05:35:00* Test Item Value Reference Range Interpretation Comments Coronavirus Type OC43 (PCR) (test code = Coronavirus Type OC 43 (PCR)) NEGATIVE NEGATIVE Test performed at [address]onavirus Type 229E (PCR)2019-07-25 05:35:00* Test Item Value Reference Range Interpretation Comments Coronavirus Type 229E (PCR) (test code = Coronavirus Type 22 9E (PCR)) NEGATIVE NEGATIVE Test performed at [address]Urine Uric Acid Dbfmamzs4290-94-10 14:58:00* Test Item Value Reference Range Interpretation Comments Urine Uric Acid Crystals (test code = 5817-2) FEW [facility] Amorphous Fzjwazsb5362-50-58 14:58:00* Test Item Value Reference Range Interpretation Comments Urine Amorphous Sediment (test code = 8246-1) RARE [facility] (KUB)2019-07-24 14:33:00 [place] [address] Patient Name: EDWARD GONSALEZ MR #: [id number] : 1970 Age/Sex: 48/M Req #: [id number] Adm Physician: CHINA DUMONT MD Ordered by: BRIANDA PETIT MD Report #: [id number] Location: ICU Room/Bed: ICU 192-1 Procedure: [id number] DX/AB DOMBERNADETTE-1VIEW (KUB) Exam Date: 07/24/19 Exam Time: 141 5 REPORT STATUS: Signed Exam: KU B - 2 views Indication: Feeding tube placement Comparison: KUB of candice feng the same day Findings: Enteric tube terminates in the stomach. EKG l ollie overlie the chest. Impression: Enteric tube terminates in the stomac h. Signed by: Heber Marino MD on 07/24/2019 2:34 PM Dictated By: AMADA MARINO MD 1434 Transcribed By: EDNA on 07/24/19 1434 COPY TO: BRIANDA PETIT MD Free Xqeonkabf0253-78-18 14:28:00* Test Item Value Reference Range Interpretation Comments Free Thyroxine (test code = 3024-7) 1.06 0.8-1.8 [facility] Stim[facility] Hormone (TSH) 2019-07-24 14:28:00* Test Item Value Reference Range Interpretation Comments Thyroid Stimulating Hormone (TSH) (test code = 68568-6) 0.170 0.350-4.940 L [facility]Hemoglobin A1c Lbbjhwy4736-05-23 14:06:00 * Test Item Value Reference Range Interpretation Comments Hemoglobin A1c Percent (test code = Hemoglobin A1c Percent) 14.9 4.0-7.0 H [facility] (KUB)2019-07-24 13:01:00 [place] [address] Patient Name: EDWARD GONSALEZ MR #: [id number] : 1970 Age/Sex: 48/M Req #: [id number] Adm Physician: CHINA DUMONT MD Ordered by: BRIANDA PETIT MD Report #: [id number] Location: ICU Room/Bed: ICU 192-1 Procedure: [id number] DX/AB CHEN (CELESTINAB) Exam Date: 07/24/19 Exam Time: 122 0 REPORT STATUS: Signed Exam: KU B - 2 views Indication: Tube placement Comparison: Chest radiograph Findings: Enteric tube projects over the very top of the image, likely in the stomach. Nonobstructive bowel gas pattern. No free air. No acute osseous injury. Impression: Enteric tube projects over the very top of t he image, likely in the stomach. Signed by: Heber Marino MD on 07/24/2019 1: 01 PM Dictated By: HEBER MARINO MD 1301 Transcribed By: EDNA on 07/24/19 1301 COPY TO: BRIANDA ANDUJAR MD CHEST XRAY LINE [id number] 22:33:00 [place] [address] Patient Name: EDWARD GONSALEZ MR #: [id number] : 1970 Age/Sex: 48/M Req #: [id number] Adm Physician: CHINA DUMONT MD Ordered by: GAEL NEVAREZ MD Report #: [id number] Location: ER[facility]OLD Room[facility]: [facility] Procedure: [id number] DX/CHEST XRAY LINE PLACEMENT Exam Date: 07/23/19 Exam Time: 2211 REPORT STATUS: Sig jose elias EXAMINATION: CHEST XRAY LINE PLACEMENT INDICATION: POST CENTRAL LINE PLACEMENT COMPARISON: None FINDINGS: TUBES and LINES: Interval placement of a right jugular central venous catheter with distal tip projected on the cavoatrial junction. LUNGS: Redemonstration of bilateral nearly diffuse patchy airspace disease. PLEURA: No pleural effusion or pn eumothorax. HEART AND MEDIASTINUM: Cardiac size is mildly enlarged. BONES AND SOFT TISSUES: No acute osseous lesion. Soft tissues are unremar kable. UPPER ABDOMEN: No free air under the diaphragm. IMPRESSION: 1. Interval placement of a right jugular central venous catheter with distal tip projected on the cavoatrial junction. 2. Redemonstration of bilateral nearly diffuse patchy airspace disease suggestive of atypical infection. Signed by: Dr. Jaylin Good M.D. on 07/23/2019 10:38 PM Dictat ed By: LILA GOOD MD, MD 37 Transcribed By: EDNA on 07/23/192237 COPY TO: GAEL NGUYEN MD Reactive Waawjquigjh7684-72-66 18:24:00* Test Item Value Reference Range Interpretation Comments Reactive Lymphocytes (test code = 69067-6) 4 [facility] [id number] 17:45:00 [place] [address] Patient Name: EDWARD GONSALEZ MR #: [id number] : 1970 Age/Sex: 48/M Req #: [id number] Adm Physician: Ordered by: KHUSHBOO LOPEZ MD Report #: [id number] Location: ER Room/Bed: Procedure: [id number] CT/CT CHEST WO Exam Date: 07/23/19 Exam Time: 1710 REPORT STATUS: Signed EXAM: CT Chest W ITHOUT intravenous contrast 07/23/2019 3:37 PM INDICATION: Shortness of breath , cough COMPARISON: Chest radiograph of earlier the same day, chest radiograph s of 07/22/2019 and 07/16/2019 TECHNIQUE: Chest was scanned utilizing a aisle411t elicittector helical scanner from the lung apex through the level of the adrenal glands without administration of IV contrast. Coronal and sagittal reformation s were obtained. Routine protocol was performed. IV CONTRAST: None RADI ATION DOSE: Total DLP: 447.3 mGy*cm. Dose modulation, iterative reconstruction , and/or weight based adjustment of the mA/kV was utilized to reduce the radia tion dose to as low as reasonably achievable. COMPLICATIONS: None FINDIN GS: LINES/ TUBES: Endotracheal tube terminates in the midthoracic trachea. LUNGS AND AIRWAYS: The central airways are patent. There are diffuse pre dominantly peripheral and predominantly lower lung groundglass opacities with some areas of more focal consolidation. Bibasilar dependent subsegmental atele ctasis. PLEURA: The pleural spaces are clear. HEART AND MEDIASTINUM: T he thyroid gland is normal. No supraclavicular, axillary, mediastinal, or hil ar lymphadenopathy. Mild cardiomegaly. Atherosclerotic calcifications involve the coronary arteries and thoracic aorta. UPPER ABDOMEN: No acute findin gs. BONES: No acute osseous injury. No suspicious lytic or blastic lesions. SOFT TISSUES: Unremarkable. IMPRESSION: Extensive bilateral predom inantly peripheral and predominantly lower lobe groundglass opacities with sandra e areas of more focal consolidation. Findings are concerning for atypical gaby l pneumonia. The above findings were discussed with Dr. Lopez on 07/23/2019 5:45 PM, who responded indicating that the communication was understood. Signed by: Heber Marino MD on 07/23/2019 5:53 PM Dictated By: HEBER MARINO MD 52 Transcribed By: ELISEO SILVA on 07/23/191752 COPY TO: KHUSHBOO LOPEZ MD CHEST SINGLE (PORTABLE)2019-07-23 16:43:00 [place] [address] Patient Name: EDWARD GONSALEZ MR #: [id number] : 1970 Age/Sex: 48/M Req #: [id number] Adm Physician: Ordered by: KHUSHBOO LOPEZ MD Report #: [id number] Location: ER Room/Bed: Procedure: [id number] DX/CH EST SINGLE (PORTABLE) Exam Date: 07/23/19 Exam Time: 1600 REPORT STATUS: Signed EXAM INATION: CHEST SINGLE (PORTABLE) INDICATION: Intubation, shortness of breath COMPARISON: Chest radiograph 07/22/2019 FINDINGS: LINE S/TUBES:Interval intubation. Endotracheal tube terminates approximately 4 cm a kayley the georgi. LUNGS:The lungs are moderately inflated. Hazy bilateral le ft greater than right airspace opacities. PLEURA:No pleural effusion or p neumothorax. MEDIASTINUM:The cardiomediastinal silhouette appears unchanged in size and shape. BONES/SOFT TISSUES:No acute osseous injury. ABDO MEN:No free air under the diaphragm. IMPRESSION: Endotracheal tube te rminates 4 cm above the georgi. Hazy bilateral airspace opacities, slightly less prominent compared to 07/22/2019. Signed by: Heber Marino MD on 2019 4:50 PM Dictated By: HEBER MARINO MD 49 Transcribed By: EDNA on 07/23/191649 COPY TO : KHUSHBOO LOPEZ MD Urine [id number] 13:35:00* Test Item Value Reference Range Interpretation Comments Urine WBC (test code = 5821-4) 0-5 0-5 [facility] [id number] 13:35:00* Test Item Value Reference Range Interpretation Comments Urine RBC (test code = 24049-7) 0-5 0-5 [facility] Cpqduife6661-00-92 13:35:00* Test Item Value Reference Range Interpretation Comments Urine Bacteria (test code = 34734-4) NONE NONE [facility] Epithelial Fznic7455-25-73 13:35:00 * Test Item Value Reference Range Interpretation Comments Urine Epithelial Cells (test code = 15445-0) NONE NONE [facility] Teyol1723-01-76 13:26:00* Test Item Value Reference Range Interpretation Comments Urine Color (test code = 5778-6) YELLOW YELLOW [facility] Zsdsfay8855-21-10 13:26:00* Test Item Value Reference Range Interpretation Comments Urine Clarity (test code = 73828-6) CLEAR CLEAR [facility] Specific Awheudt0746-29-28 13:26:00 * Test Item Value Reference Range Interpretation Comments Urine Specific [place] (test code = 5811-5) 1.015 1.010-1.02 5 [facility] eD5513-91-96 13:26:00* Test Item Value Reference Range Interpretation Comments Urine pH (test code = 77434-1) 5 5-7 [facility] Leukocyte Madyjlcy7129-62-87 13:26:00* Test Item Value Reference Range Interpretation Comments Urine Leukocyte Esterase (test code = 5799-2) NEGATIVE NEGATIVE [facility] Oqweska5372-61-68 13:26:00* Test Item Value Reference Range Interpretation Comments Urine Nitrite (test code = 13660-6) NEGATIVE NEGATIVE [facility] Mxivbbu5666-95-53 13:26:00* Test Item Value Reference Range Interpretation Comments Urine Protein (test code = 5804-0) NEGATIVE NEGATIVE [facility] Glucose (UA)2019-07-22 13:26:00* Test Item Value Reference Range Interpretation Comments Urine Glucose (UA) (test code = 2349-9) 2+ NEGATIVE H [facility] Opfndmm3566-30-82 13:26:00* Test Item Value Reference Range Interpretation Comments Urine Ketones (test code = 66744-6) 3+ NEGATIVE H [facility] Opiates Bcjccj0324-83-73 13:26:00* Test Item Value Reference Range Interpretation Comments Urine Opiates Screen (test code = 73228-8) NEGATIVE NEGATIVE ALL TESTS PERFORMED MANUALLY ON [employer] TOX/SEE TESTChrist[facility]cosUrine Barbiturates Aufzzw0004-72-20 13:26:00* Test Item Value Reference Range Interpretation Comments Urine Barbiturates Screen (test code = 127725775) NEGATIVE NEGA TIVE [facility] Phencyclidine Qampfm5361-85-17 13:26:00* Test Item Value Reference Range Interpretation Comments Urine Phencyclidine Screen (test code = 43463-1) NEGATIVE NEGAT ISAAK [facility] Amphetamines Gsoltu9410-13-11 13:26:00* Test Item Value Reference Range Interpretation Comments Urine Amphetamines Screen (test code = 87713-9) NEGATIVE NEGATI VE [facility] Methamphetamines Lmttcq4281-38-39 13:26:00* Test Item Value Reference Range Interpretation Comments Urine Methamphetamines Screen (test code = Urine Metha mphetamines Screen) NEGATIVE NEGATIVE [facility] Benzodiazepines Bjecqv9191-33-75 13:26:00* Test Item Value Reference Range Interpretation Comments Urine Benzodiazepines Screen (test code = 29084-7) NEGATIVE NEG ATIVE [facility] Cocaine Ubeovy8305-15-15 13:26:00* Test Item Value Reference Range Interpretation Comments Urine Cocaine Screen (test code = 3398-5) NEGATIVE NEGATIVE [facility] Cannabinoids Xljudy1217-91-78 13:26:00* Test Item Value Reference Range Interpretation Comments Urine Cannabinoids Screen (test code = 08024-0) NEGATIVE NEGATI VE THESE RESULTS ARE FOR MEDICAL TREATMENT ONLYTHIS REPORT CONTAINS UNCONFIR MED SCREENING RESULTS*POSITIVE RESULTS WILL BE CONFIRMED BY REFERENCE LAB UPON R EQUEST CUT-OFFDRUG CLASS CONCENTRATION ng/mLAmphetamines 1000Methamphetamines 1000Cocaine 300Opiate 300Phencyc lidine 25Cannabinoid 50Barbiturates 300Benzodiazepine 300Methadone 300[facility] Methadone Glicyx3496-40-04 13:26:00* Test Item Value Reference Range Interpretation Comments Urine Methadone Screen (test code = 44428-1) NEGATIVE NEGATIVE THESE RESULTS ARE FOR MEDICAL TREATMENT ONLYTHIS REPORT CONTAINS UNCONFIR MED SCREENING RESULTS*POSITIVE RESULTS WILL BE CONFIRMED BY REFERENCE LAB UPON R EQUEST CUT-OFFDRUG CLASS CONCENTRATION ng/mLAmphetamines 1000Methamphetamines 1000Cocaine Metabolite 300Opiate 300Phencyc lidine 25Cannabinoid 50Barbiturates 300Benzodiazepine 300Methadone 300[facility] Mwoydzqahpmr2756-03-49 13:26:00* Test Item Value Reference Range Interpretation Comments Urine Urobilinogen (test code = 54096-2) 0.2 0.2-1 [facility] Dbrxhktni7830-92-67 13:26:00* Test Item Value Reference Range Interpretation Comments Urine Bilirubin (test code = 1978-6) NEGATIVE NEGATIVE [facility] Stkmj9734-83-40 13:26:00* Test Item Value Reference Range Interpretation Comments Urine Blood (test code = 40515-7) NEGATIVE NEGATIVE [facility] Opiates Dqocfu9061-22-01 13:26:00* Test Item Value Reference Range Interpretation Comments Urine Opiates Screen (test code = 45566-4) NEGATIVE NEGATIVE ALL TESTS PERFORMED MANUALLY ON [employer] TOX/SEE TESTChrist[facility]cosUrine Barbiturates Uscneb3748-10-08 13:26:00* Test Item Value Reference Range Interpretation Comments Urine Barbiturates Screen (test code = 749519283) NEGATIVE NEGA TIVE [facility] Phencyclidine Blkawr2250-81-30 13:26:00* Test Item Value Reference Range Interpretation Comments Urine Phencyclidine Screen (test code = 11937-4) NEGATIVE NEGAT ISAAK [facility] Amphetamines Kfvpqe9007-72-16 13:26:00* Test Item Value Reference Range Interpretation Comments Urine Amphetamines Screen (test code = 79373-5) NEGATIVE NEGATI VE [facility] Methamphetamines Epyxxv4475-00-90 13:26:00* Test Item Value Reference Range Interpretation Comments Urine Methamphetamines Screen (test code = Urine Metha mphetamines Screen) NEGATIVE NEGATIVE [facility] Benzodiazepines Aofnkk9040-07-33 13:26:00* Test Item Value Reference Range Interpretation Comments Urine Benzodiazepines Screen (test code = 24831-0) NEGATIVE NEG ATIVE [facility] Cocaine Kgmcia1524-39-58 13:26:00* Test Item Value Reference Range Interpretation Comments Urine Cocaine Screen (test code = 3398-5) NEGATIVE NEGATIVE [facility] Cannabinoids Oktaip8896-68-40 13:26:00* Test Item Value Reference Range Interpretation Comments Urine Cannabinoids Screen (test code = 65761-2) NEGATIVE NEGATI VE THESE RESULTS ARE FOR MEDICAL TREATMENT ONLYTHIS REPORT CONTAINS UNCONFIR MED SCREENING RESULTS*POSITIVE RESULTS WILL BE CONFIRMED BY REFERENCE LAB UPON R EQUEST CUT-OFFDRUG CLASS CONCENTRATION ng/mLAmphetamines 1000Methamphetamines 1000Cocaine 300Opiate 300Phencyc lidine 25Cannabinoid 50Barbiturates 300Benzodiazepine 300Methadone 300[facility]neU[facility] Methadone Brpiqh6013-53-62 13:26:00* Test Item Value Reference Range Interpretation Comments Urine Methadone Screen (test code = 51573-5) NEGATIVE NEGATIVE THESE RESULTS ARE FOR MEDICAL TREATMENT ONLYTHIS REPORT CONTAINS UNCONFIR MED SCREENING RESULTS*POSITIVE RESULTS WILL BE CONFIRMED BY REFERENCE LAB UPON R EQUEST CUT-OFFDRUG CLASS CONCENTRATION ng/mLAmphetamines 1000Methamphetamines 1000Cocaine Metabolite 300Opiate 300Phencyc lidine 25Cannabinoid 50Barbiturates 300Benzodiazepine 300Methadone 300[facility]neCHEST [facility]ING[facility] ([facility])2019-07-22 12:47:00 [facility] [address] [address] Patient Name: EDWARD GONSALEZ MR #: [id number] : 1970 Age/Sex: 48/M Req #: [id number] Adm Physician: Ordered by: BALDEMAR MELGAR HOUSE ADMIN Report #: [id number] Location: ER Room/Bed: Procedure: [id number] DX/ CHEST SINGLE (PORTABLE) Exam Date: 07/22/19 Exam Robert e: 1229 REPORT STATUS: Signed Ex amination: Single AP view of the chest. COMPARISON: Portable chest 0aa INDICATION: Fever, cough for 2 weeks IMPRESSION: 1. Fide es and Tubes: None 2. Lungs are well-inflated. Airspace opacity in the left m id and lower lung, likely representing pneumonia in the appropriate clinical s etting. Right lung is clear. No effusion. 3. Cardiomediastinal silhouette i s normal. Pulmonary vasculature is normal. 4. No acute bony abnormalities. Signed by: Dr. Ruslan Campo M.D. on 07/22/2019 12:50 PM Dictated By: RUSLAN CAMPO MD 1250 Transcribed By: EDNA on 07/22/19 1250 COPY TO: BALDEMAR MELGAR NP Sodium Sgmgk3726-62-82 12:31:00* Test Item Value Reference Range Interpretation Comments Sodium Level (test code = 2951-2) 140 136-145 [facility]nePotassium Fjrnc6588-48-79 12:31:00* Test Item Value Reference Range Interpretation Comments Potassium Level (test code = 2823-3) 3.7 3.5-5.1 [facility]cosChloride Mhsvt8276-73-62 12:31:00* Test Item Value Reference Range Interpretation Comments Chloride Level (test code = 2075-0) 93 98-107 L [facility]cosCarbon Dioxide Uqomm8657-28-14 12:31:00* Test Item Value Reference Range Interpretation Comments Carbon Dioxide Level (test code = 2028-9) 23 22-29 [facility]cosAnion Uxc0687-89-90 12:31:00* Test Item Value Reference Range Interpretation Comments Anion Gap (test code = 61635-3) 27.7 8-16 H [facility]cosBlood Urea Lhpwbhbw5178-53-63 12:31:00* Test Item Value Reference Range Interpretation Comments Blood Urea Nitrogen (test code = 3094-0) 39 7-26 H [facility]cosCreatinine2020-03-17 12:31:00* Test Item Value Reference Range Interpretation Comments Creatinine (test code = 2160-0) 1.67 0.72-1.25 H [facility]cosBUN/Creatinine Osfln1373-03-30 12:31:00* Test Item Value Reference Range Interpretation Comments BUN/Creatinine Ratio (test code = 3097-3) 23 6-25 [facility] MarcosEstimat Glomerular Filtration Rate 2019-07-22 12:31:00* Test Item Value Reference Range Interpretation Comments Estimat Glomerular Filtration Rate (test code = 219122599) 44 >60 L Ranges were taken from the National Kidney Disease Education Program and the [place] community health[facility] Kidney Foundation literature.Reference ranges:60 or greater: Soaynf75-89 ( for 3 consecutive months): Chronic kidney disease 15 or less: Kidney failureChristus Santa Rosa Hospital – San MarcosGlucose Liipi2762-80-63 12:31:00* Test Item Value Reference Range Interpretation Comments Glucose Level (test code = PJV0115) 391 74-118 H [facility]cosCalcium Afiaq5265-05-73 12:31:00* Test Item Value Reference Range Interpretation Comments Calcium Level (test code = 67287-8) 10.2 8.4-10.2 [facility]cosTotal Znjdlblam7817-29-60 12:31:00* Test Item Value Reference Range Interpretation Comments Total Bilirubin (test code = 1975-2) 0.6 0.2-1.2 [facility] MarcosAspartate Amino Transf (AST/SGOT) 2019-07-22 12:31:00* Test Item Value Reference Range Interpretation Comments Aspartate Amino Transf (AST/SGOT) (test code = Aspartate Amino Transf (AST/SGOT)) 33 5-34 [facility] MarcosAlanine Aminotransferase (ALT/SGPT) 2019-07-22 12:31:00* Test Item Value Reference Range Interpretation Comments Alanine Aminotransferase (ALT/SGPT) (test code = 1742-6) 40 0-55 [facility] MarcosTotal Fyrovks6388-13-79 12:31:00* Test Item Value Reference Range Interpretation Comments Total Protein (test code = 2885-2) 8.8 6.5-8.1 H [facility] MarcosAlbumin2020-03-17 12:31:00* Test Item Value Reference Range Interpretation Comments Albumin (test code = 1751-7) 3.7 3.5-5.0 [facility]cosGlobulin2020-03-17 12:31:00* Test Item Value Reference Range Interpretation Comments Globulin (test code = 43102-4) 5.1 2.3-3.5 H [facility]cosAlbumin/Globulin Xbcqx1510-75-98 12:31:00 * Test Item Value Reference Range Interpretation Comments Albumin/Globulin Ratio (test code = 1759-0) 0.7 0.8-2.0 L [facility] MarcosAlkaline Nimjfnarsir3135-37-70 12:31:00* Test Item Value Reference Range Interpretation Comments Alkaline Phosphatase (test code = 6768-6) 108 40-150 [facility]cosInfluenza Virus Types A,B Antigen 2019-07-22 12:12:00* Test Item Value Reference Range Interpretation Comments Influenza Virus Types A,B Antigen (test code = 17089-8) NEGATIVE NEGATIVE [facility]cosInfluenza Virus Types A,B Antigen 2019-07-22 12:12:00* Test Item Value Reference Range Interpretation Comments Influenza Virus Types A,B Antigen (test code = 63448-0) NEGATIVE NEGATIVE [facility] MarcosGroup A Streptococcus Fmpdtm9389-86-23 12:00:00* Test Item Value Reference Range Interpretation Comments Group A Streptococcus Screen (test code = 51086-7) NEGATIVE NEG ATIVE [facility] MarcosGroup A Streptococcus Fmesqn1544-07-24 12:00:00* Test Item Value Reference Range Interpretation Comments Group A Streptococcus Screen (test code = 15049-3) NEGATIVE NEG ATIVE [facility] MarcosWhite Blood Oubik9146-12-58 11:55:00* Test Item Value Reference Range Interpretation Comments White Blood Count (test code = 6690-2) 6.73 4.8-10.8 [facility] MarcosRed Blood Scrkl1615-79-11 11:55:00* Test Item Value Reference Range Interpretation Comments Red Blood Count (test code = 789-8) 5.87 4.3-5.7 H [facility]cosHemoglobin2020-03-17 11:55:00* Test Item Value Reference Range Interpretation Comments Hemoglobin (test code = 24245-1) 18.3 14.0-18.0 H [facility]cosHematocrit2020-03-17 11:55:00* Test Item Value Reference Range Interpretation Comments Hematocrit (test code = 4544-3) 52.2 38.2-49.6 H [facility] MarcosMean Corpuscular Xrrcqe3241-40-42 11:55:00* Test Item Value Reference Range Interpretation Comments Mean Corpuscular Volume (test code = 787-2) 88.9 81-99 [facility]cosMean Corpuscular Qubkicnayn3562-46-16 11:55:00* Test Item Value Reference Range Interpretation Comments Mean Corpuscular Hemoglobin (test code = 785-6) 31.2 28-32 [facility] MarcosMean Corpuscular Hemoglobin Concent 2019-07-22 11:55:00* Test Item Value Reference Range Interpretation Comments Mean Corpuscular Hemoglobin Concent (test code = 786-4) 35.1 31-35 H [facility]cosRed Cell Distribution Iobrd8103-66-99 11:55:00* Test Item Value Reference Range Interpretation Comments Red Cell Distribution Width (test code = 07572-4) 11.7 11.7 -14.4 [facility] MarcosPlatelet Nzpnr8703-45-65 11:55:00* Test Item Value Reference Range Interpretation Comments Platelet Count (test code = 777-3) 175 140-360 [facility]cosNeutrophils (%) (Auto)2019-07-22 11:55:00 * Test Item Value Reference Range Interpretation Comments Neutrophils (%) (Auto) (test code = 15520-2) 84.4 38.7-80.0 H [facility] MarcosLymphocytes (%) (Auto)2019-07-22 11:55:00 * Test Item Value Reference Range Interpretation Comments Lymphocytes (%) (Auto) (test code = 736-9) 10.0 18.0-39.1 L [facility]cosMonocytes (%) (Auto)2019-07-22 11:55:00* Test Item Value Reference Range Interpretation Comments Monocytes (%) (Auto) (test code = 5905-5) 3.3 4.4-11.3 L [facility]cosEosinophils (%) (Auto)2019-07-22 11:55:00 * Test Item Value Reference Range Interpretation Comments Eosinophils (%) (Auto) (test code = 713-8) 1.9 0.0-6.0 [facility]cosBasophils (%) (Auto)2019-07-22 11:55:00* Test Item Value Reference Range Interpretation Comments Basophils (%) (Auto) (test code = 706-2) 0.1 0.0-1.0 [facility] MarcosIM GRANULOCYTES %2019-07-22 11:55:00* Test Item Value Reference Range Interpretation Comments IM GRANULOCYTES % (test code = IM GRANULOCYTES %) 0.3 0.0- 1.0 [facility]cosNeutrophils # (Auto)2019-07-22 11:55:00* Test Item Value Reference Range Interpretation Comments Neutrophils # (Auto) (test code = 751-8) 5.7 2.1-6.9 [facility]cosLymphocytes # (Auto)2019-07-22 11:55:00* Test Item Value Reference Range Interpretation Comments Lymphocytes # (Auto) (test code = 43367-4) 0.7 1.0-3.2 L [facility]cosMonocytes # (Auto)2019-07-22 11:55:00* Test Item Value Reference Range Interpretation Comments Monocytes # (Auto) (test code = 742-7) 0.2 0.2-0.8 [facility]cosEosinophils # (Auto)2019-07-22 11:55:00* Test Item Value Reference Range Interpretation Comments Eosinophils # (Auto) (test code = 711-2) 0.1 0.0-0.4 [facility]cosBasophils # (Auto)2019-07-22 11:55:00* Test Item Value Reference Range Interpretation Comments Basophils # (Auto) (test code = 704-7) 0.0 0.0-0.1 [facility] MarcosAbsolute Immature Granulocyte (auto 2019-07-22 11:55:00* Test Item Value Reference Range Interpretation Comments Absolute Immature Granulocyte (auto (carli t code = Absolute Immature Granulocyte (auto) 0.02 0-0.1 [facility] MarcosBlood Gukbudl3758-86-63 18:10:00* Test Item Value Reference Range Interpretation Comments Blood Culture (test code = 57757715) NO GROWTH AFTER 5 DAYS, FINAL REPORT [facility] MarcosBedside Owottpf7116-65-34 20:58:00* Test Item Value Reference Range Interpretation Comments Bedside Glucose (test code = 32869-1) 282 70-120 H Meter ID: [id number] [facility] – San MarcosBedside Glucose 2019-07-16 20:58:00* Test Item Value Reference Range Interpretation Comments Bedside Glucose (test code = 45848-9) 282 70-120 H Meter ID: [id number] [facility] – San MarcosLactic Acid Level 2019-07-16 19:37:00* Test Item Value Reference Range Interpretation Comments Lactic Acid Level (test code = Lactic Acid Level) 1.2 0.5- 2.0 [facility] MarcosLactic Acid Otumk3051-22-90 19:37:00* Test Item Value Reference Range Interpretation Comments Lactic Acid Level (test code = Lactic Acid Level) 1.2 0.5- 2.0 [facility] Centerodium Qresv1885-03-03 18:53:00* Test Item Value Reference Range Interpretation Comments Sodium Level (test code = 2951-2) 133 136-145 L [facility]cosPotassium Lglvp4458-72-65 18:53:00* Test Item Value Reference Range Interpretation Comments Potassium Level (test code = 2823-3) 4.6 3.5-5.1 [facility] MarcosChloride Pnvni1710-18-72 18:53:00* Test Item Value Reference Range Interpretation Comments Chloride Level (test code = 2075-0) 96 98-107 L [facility] MarcosCarbon Dioxide Etuda8038-69-45 18:53:00* Test Item Value Reference Range Interpretation Comments Carbon Dioxide Level (test code = 2028-9) 26 22-29 [facility] MarcosAnion Ggu7592-06-60 18:53:00* Test Item Value Reference Range Interpretation Comments Anion Gap (test code = 25958-3) 15.6 8-16 [facility]cosBlood Urea Patpyfcu1039-25-88 18:53:00* Test Item Value Reference Range Interpretation Comments Blood Urea Nitrogen (test code = 3094-0) 22 7-26 [facility] MarcosCreatinine2020-03-11 18:53:00* Test Item Value Reference Range Interpretation Comments Creatinine (test code = 2160-0) 1.80 0.72-1.25 H [facility]cosBUN/Creatinine Esjgy8453-66-22 18:53:00* Test Item Value Reference Range Interpretation Comments BUN/Creatinine Ratio (test code = 3097-3) 12 6-25 [facility] MarcosEstimat Glomerular Filtration Rate 2019-07-16 18:53:00* Test Item Value Reference Range Interpretation Comments Estimat Glomerular Filtration Rate (test code = 723566236) 40 >60 L Ranges were taken from the National Kidney Disease Education Program and the [place] community healthal Kidney Foundation literature.Reference ranges:60 or greater: Hckdhv34-00 ( for 3 consecutive months): Chronic kidney disease 15 or less: Kidney failureChristus Santa Rosa Hospital – San MarcosGlucose Ipzpb0123-72-84 18:53:00* Test Item Value Reference Range Interpretation Comments Glucose Level (test code = KFW2245) 543 74-118 HH Results repeated and called to BRANDON at 1853 on 07/16/19 by Marissa Mendez. Read back and verified.[facility]cosCalcium Lztjj0025-98-22 18:53:00* Test Item Value Reference Range Interpretation Comments Calcium Level (test code = 45392-3) 10.0 8.4-10.2 [facility]cosTotal Vueahwycq4058-22-46 18:53:00* Test Item Value Reference Range Interpretation Comments Total Bilirubin (test code = 1975-2) 0.5 0.2-1.2 [facility] MarcosAspartate Amino Transf (AST/SGOT) 2019-07-16 18:53:00* Test Item Value Reference Range Interpretation Comments Aspartate Amino Transf (AST/SGOT) (test code = Aspartate Amino Transf (AST/SGOT)) 17 5-34 [facility] MarcosAlanine Aminotransferase (ALT/SGPT) 2019-07-16 18:53:00* Test Item Value Reference Range Interpretation Comments Alanine Aminotransferase (ALT/SGPT) (test code = 1742-6) 25 0-55 [facility] MarcosTotal Jezsyoh6597-03-62 18:53:00* Test Item Value Reference Range Interpretation Comments Total Protein (test code = 2885-2) 8.8 6.5-8.1 H [facility] MarcosAlbumin2020-03-11 18:53:00* Test Item Value Reference Range Interpretation Comments Albumin (test code = 1751-7) 4.7 3.5-5.0 [facility]cosGlobulin2020-03-11 18:53:00* Test Item Value Reference Range Interpretation Comments Globulin (test code = 69227-4) 4.1 2.3-3.5 H [facility] MarcosAlbumin/Globulin Kegmm9902-38-92 18:53:00 * Test Item Value Reference Range Interpretation Comments Albumin/Globulin Ratio (test code = 1759-0) 1.1 0.8-2.0 [facility]cosAlkaline Islhkdghtvj7794-77-52 18:53:00* Test Item Value Reference Range Interpretation Comments Alkaline Phosphatase (test code = 6768-6) 93 40-150 [facility] MarcosCreatine Adbkwo1218-48-30 18:53:00* Test Item Value Reference Range Interpretation Comments Creatine Kinase (test code = 2157-6) 40 30-200 [facility] MarcosCreatine Kinase ZJ6311-57-40 18:53:00* Test Item Value Reference Range Interpretation Comments Creatine Kinase MB (test code = 29362-2) 0.60 0-5.0 [facility] MarcosTroponin U9315-47-43 18:53:00* Test Item Value Reference Range Interpretation Comments Troponin I (test code = ZXP9447) 0.011 0-0.300 [facility] MarcosCreatine Gtsbwb2926-50-75 18:53:00* Test Item Value Reference Range Interpretation Comments Creatine Kinase (test code = 2157-6) 40 30-200 [facility]cosCreatine Kinase GP1831-59-30 18:53:00* Test Item Value Reference Range Interpretation Comments Creatine Kinase MB (test code = 05502-8) 0.60 0-5.0 [facility] MarcosTroponin U9174-66-97 18:53:00* Test Item Value Reference Range Interpretation Comments Troponin I (test code = ZXO2795) 0.011 0-0.300 [facility] MarcosB-Type Natriuretic Tsdjuhx0860-62-86 18:39:00* Test Item Value Reference Range Interpretation Comments B-Type Natriuretic Peptide (test code = 38267-4) < 10.0 0-100 [facility] MarcosB-Type Natriuretic Wsjpogc6092-27-65 18:39:00* Test Item Value Reference Range Interpretation Comments B-Type Natriuretic Peptide (test code = 81965-8) < 10.0 0-100 [facility]neCHEST [facility]ING[facility] ([facility])2019-07-16 18:26:00 [facility] [address] [address] Patient Name: EDWARD GONSALEZ MR #: [id number] : 1970 Age/Sex: 48/M Req #: [id number] Adm Physician: Ordered by: BALDEMAR MELGAR NP Report #: [id number] Location: ER Room/Bed: Procedure: [id number] DX/ CHEST SINGLE (PORTABLE) Exam Date: 07/16/19 Exam Robert e: 1730 REPORT STATUS: Signed EX AMINATION: CHEST SINGLE (PORTABLE) COMPARISON: None INDICATION: F lulike symptoms ERMD ORDER [id number] 1730 Y DISCUSSION: Fro ntal view of the chest obtained at 1747 hours. HEART AND MEDIASTINUM: The cardiomediastinal silhouette is unremarkable. LINES: None. LUNGS: The lungs are well inflated and clear. No pneumonia or pulmonary edema. PLE URA: No pleural effusion or pneumothorax. BONES AND SOFT TISSUES: No foca l osseous lesion. The soft tissues are normal. IMPRESSION: No acute c ardiopulmonary disease. Signed by: Dr. Daysi Pittman MD on 07/16/2019 6 :26 PM Dictated By: DAYSI PITTMAN MD 1826 Transcribed By: EDNA on 07/16/19 4078 COPY TO: [facility] Urine [id number] 18:20:00* Test Item Value Reference Range Interpretation Comments Urine WBC (test code = 5821-4) NONE 0-5 [facility] [id number] 18:20:00* Test Item Value Reference Range Interpretation Comments Urine RBC (test code = 60646-9) NONE 0-5 [facility] [id number] 18:20:00* Test Item Value Reference Range Interpretation Comments Urine Bacteria (test code = 68101-6) NONE NONE [facility] Epithelial [id number] 18:20:00 * Test Item Value Reference Range Interpretation Comments Urine Epithelial Cells (test code = 92357-9) RARE NONE [facility] [id number] 18:12:00* Test Item Value Reference Range Interpretation Comments Urine Color (test code = 5778-6) YELLOW YELLOW [facility] [id number] 18:12:00* Test Item Value Reference Range Interpretation Comments Urine Clarity (test code = 75648-3) SL CLOUDY CLEAR H [facility] Specific [id number] 18:12:00 * Test Item Value Reference Range Interpretation Comments Urine Specific [place] (test code = 5811-5) 1.015 1.010-1.02 5 [facility] [id number] 18:12:00* Test Item Value Reference Range Interpretation Comments Urine pH (test code = 94448-5) 5 5-7 [facility] Leukocyte [id number] 18:12:00* Test Item Value Reference Range Interpretation Comments Urine Leukocyte Esterase (test code = 5799-2) NEGATIVE NEGATIVE [facility] [id number] 18:12:00* Test Item Value Reference Range Interpretation Comments Urine Nitrite (test code = 47783-6) NEGATIVE NEGATIVE [facility] [id number] 18:12:00* Test Item Value Reference Range Interpretation Comments Urine Protein (test code = 5804-0) NEGATIVE NEGATIVE [facility] Glucose (UA)2019-07-16 18:12:00* Test Item Value Reference Range Interpretation Comments Urine Glucose (UA) (test code = 2349-9) 2+ NEGATIVE H [facility] [id number] 18:12:00* Test Item Value Reference Range Interpretation Comments Urine Ketones (test code = 74717-6) NEGATIVE NEGATIVE [facility] [id number] 18:12:00* Test Item Value Reference Range Interpretation Comments Urine Urobilinogen (test code = 27999-9) 0.2 0.2-1 [facility] Gssxtalxa0520-28-27 18:12:00* Test Item Value Reference Range Interpretation Comments Urine Bilirubin (test code = 1978-6) NEGATIVE NEGATIVE [facility] [id number] 18:12:00* Test Item Value Reference Range Interpretation Comments Urine Blood (test code = 55231-9) NEGATIVE NEGATIVE [facility]cosProthrombin [id number] 18:06:00* Test Item Value Reference Range Interpretation Comments Prothrombin Time (test code = 5902-2) 13.0 11.9-14.5 [facility]cosProthromb Time International Ratio 2019-07-16 18:06:00* Test Item Value Reference Range Interpretation Comments Prothromb Time International Ratio (test code = 6301-6) 0.93 Oral Anticoagulant Therapy INR Values:1. Low Intensity Therapy 1.5 - 2.02 . Moderate Intensity Therapy 2.0 - 3.03. High Intensity Therapy(1) 2.5 - 3. 54. High Intensity Therapy(2) 3.0 - 4.05. Panic Value INR > 5.0 [facility]Act[facility] Partial Thromboplast Time 2019-07-16 18:06:00* Test Item Value Reference Range Interpretation Comments Activated Partial Thromboplast Time (test code = 39588-5) 34.9 23.8-35.5 [facility]cosProthrombin [id number] 18:06:00* Test Item Value Reference Range Interpretation Comments Prothrombin Time (test code = 5902-2) 13.0 11.9-14.5 [facility]thromb Time International Ratio 2019-07-16 18:06:00* Test Item Value Reference Range Interpretation Comments Prothromb Time International Ratio (test code = 6301-6) 0.93 Oral Anticoagulant Therapy INR Values:1. Low Intensity Therapy 1.5 - 2.02 . Moderate Intensity Therapy 2.0 - 3.03. High Intensity Therapy(1) 2.5 - 3. 54. High Intensity Therapy(2) 3.0 - 4.05. Panic Value INR > 5.0 [facility] Partial Thromboplast Time 2019-07-16 18:06:00* Test Item Value Reference Range Interpretation Comments Activated Partial Thromboplast Time (test code = 69566-6) 34.9 23.8-35.5 [facility]cosWhite Blood [id number] 18:01:00* Test Item Value Reference Range Interpretation Comments White Blood Count (test code = 6690-2) 6.93 4.8-10.8 [facility]cosRed Blood [id number] 18:01:00* Test Item Value Reference Range Interpretation Comments Red Blood Count (test code = 789-8) 5.74 4.3-5.7 H [facility]Hemoglobin2020-03-11 18:01:00* Test Item Value Reference Range Interpretation Comments Hemoglobin (test code = 90191-2) 17.8 14.0-18.0 [facility]Hematocrit2020-03-11 18:01:00* Test Item Value Reference Range Interpretation Comments Hematocrit (test code = 4544-3) 51.4 38.2-49.6 H [facility]cosMean Corpuscular Bjebvi7923-76-44 18:01:00* Test Item Value Reference Range Interpretation Comments Mean Corpuscular Volume (test code = 787-2) 89.5 81-99 [facility]cosMean Corpuscular Apaariyqbz8523-34-79 18:01:00* Test Item Value Reference Range Interpretation Comments Mean Corpuscular Hemoglobin (test code = 785-6) 31.0 28-32 [facility]cosMean Corpuscular Hemoglobin Concent 2019-07-16 18:01:00* Test Item Value Reference Range Interpretation Comments Mean Corpuscular Hemoglobin Concent (test code = 786-4) 34.6 31-35 [facility]cosRed Cell Distribution [id number] 18:01:00* Test Item Value Reference Range Interpretation Comments Red Cell Distribution Width (test code = 86711-0) 11.9 11.7 -14.4 [facility] MarcosPlatelet [id number] 18:01:00* Test Item Value Reference Range Interpretation Comments Platelet Count (test code = 777-3) 163 140-360 [facility]cosNeutrophils (%) (Auto)2019-07-16 18:01:00 * Test Item Value Reference Range Interpretation Comments Neutrophils (%) (Auto) (test code = 12404-5) 80.8 38.7-80.0 H [facility]cosLymphocytes (%) (Auto)2019-07-16 18:01:00 * Test Item Value Reference Range Interpretation Comments Lymphocytes (%) (Auto) (test code = 736-9) 8.9 18.0-39.1 L [facility]cosMonocytes (%) (Auto)2019-07-16 18:01:00* Test Item Value Reference Range Interpretation Comments Monocytes (%) (Auto) (test code = 5905-5) 9.5 4.4-11.3 [facility]Eosinophils (%) (Auto)2019-07-16 18:01:00 * Test Item Value Reference Range Interpretation Comments Eosinophils (%) (Auto) (test code = 713-8) 0.1 0.0-6.0 [facility]Basophils (%) (Auto)2019-07-16 18:01:00* Test Item Value Reference Range Interpretation Comments Basophils (%) (Auto) (test code = 706-2) 0.3 0.0-1.0 [facility] MarcosIM GRANULOCYTES %2019-07-16 18:01:00* Test Item Value Reference Range Interpretation Comments IM GRANULOCYTES % (test code = IM GRANULOCYTES %) 0.4 0.0- 1.0 [facility]cosNeutrophils # (Auto)2019-07-16 18:01:00* Test Item Value Reference Range Interpretation Comments Neutrophils # (Auto) (test code = 751-8) 5.6 2.1-6.9 [facility]cosLymphocytes # (Auto)2019-07-16 18:01:00* Test Item Value Reference Range Interpretation Comments Lymphocytes # (Auto) (test code = 05819-7) 0.6 1.0-3.2 L [facility]cosMonocytes # (Auto)2019-07-16 18:01:00* Test Item Value Reference Range Interpretation Comments Monocytes # (Auto) (test code = 742-7) 0.7 0.2-0.8 [facility]Eosinophils # (Auto)2019-07-16 18:01:00* Test Item Value Reference Range Interpretation Comments Eosinophils # (Auto) (test code = 711-2) 0.0 0.0-0.4 [facility]Basophils # (Auto)2019-07-16 18:01:00* Test Item Value Reference Range Interpretation Comments Basophils # (Auto) (test code = 704-7) 0.0 0.0-0.1 [facility] MarcosAbsolute Immature Granulocyte (auto 2019-07-16 18:01:00* Test Item Value Reference Range Interpretation Comments Absolute Immature Granulocyte (auto (carli t code = Absolute Immature Granulocyte (auto) 0.03 0-0.1 [facility]cosGroup A Streptococcus [id number] 16:45:00* Test Item Value Reference Range Interpretation Comments Group A Streptococcus Screen (test code = 50291-5) NEGATIVE NEG ATIVE [facility] MarcosInfluenza Virus Types A,B Antigen 2019-07-16 16:35:00* Test Item Value Reference Range Interpretation Comments Influenza Virus Types A,B Antigen (test code = 84622-3) NEGATIVE NEGATIVE [facility] [id number] 11:29:00* Test Item Value Reference Range Interpretation Comments POC-GLUCOSE METER (BEAKER) (test code = 1538) 208 mg/dL 70-110 H TESTED AT [facility] [address] [facility] [address] LIPID [id number] 09:01:00* Test Item Value Reference Range Interpretation Comments TRIGLYCERIDES (BEAKER) (test code = 540) 167 mg/dL Specimen slightly hemolyzed CHOLESTEROL (BEAKER) (test code = 631) 142 mg/dL Specimen slightly hemolyzed HDL CHOLESTEROL (BEAKER) (test code = 976) 30 mg/dL LDL CHOLESTEROL CALCULATED (BEAKER) (test code = 633) 79 mg/dL Triglyceride Reference Range: Low Risk <150 Borderline 150-199 High Risk 200-499 Very High Risk >=500Cholesterol Reference Range: Low Risk <200 Borderline 200-239 High Risk >240HDL Cholesterol Reference Range: Low Risk >=60 High Risk <40LDL Cholesterol Reference Range: Optimal <100 Near Optimal 100-129 Borderline 130-159 High 160-189 Very High >=190 HEMOGLOBIN [id number] 08:47:00* Test Item Value Reference Range Interpretation Comments HEMOGLOBIN A1C (BEAKER) (test code = 368) 10.2 % 4.3-6.1 H CREATINE KINASE (CK), TOTAL AND [id number] 08:21:00* Test Item Value Reference Range Interpretation Comments CREATINE KINASE TOTAL (BEAKER) (test code = 380) 97 U/L 40-25 0 CREATINE KINASE-MB (BEAKER) (test code = 750) 7.7 ng/mL 0.0-4.9 H CREATINE KINASE-MB INDEX (BEAKER) (test code = 395) 7.9 % CK-MB Reference Range:<5 Normal5-10 Borderline>10 AbnormalBASIC METABOLIC [id number] 08:06:00* Test Item Value Reference Range Interpretation Comments SODIUM (BEAKER) (test code = 381) 142 meq/L 135-148 POTASSIUM (BEAKER) (test code = 379) 3.8 meq/L 3.6-5.5 Specimen slightly hemolyzed CHLORIDE (BEAKER) (test code = 382) 108 meq/L 98-106 H CO2 (BEAKER) (test code = 355) 22 meq/L 20-29 BLOOD UREA NITROGEN (BEAKER) (test code = 354) 21 mg/dL 10-26 CREATININE (BEAKER) (test code = 358) 1.20 mg/dL 0.50-1.20 Specimen slightly hemolyzed GLUCOSE RANDOM (BEAKER) (test code = 652) 169 mg/dL 70-110 H CALCIUM (BEAKER) (test code = 697) 9.0 mg/dL 8.5-10.5 EGFR (BEAKER) (test code = 1092) 65 mL/min/1.73 sq m ESTIMATED GFR IS NOT ACCURATE CREATININE CLEARANCE IN PREDICTING GLOMERULAR FILTRATION RATE. ESTIMATED GFR IS NOT APPLICABLE FOR DIALYSIS PATIENTS. [id number] 07:58:00* Test Item Value Reference Range Interpretation Comments MAGNESIUM (BEAKER) (test code = 627) 2.8 mg/dL 1.5-3.0 Specimen slightly hemolyzed POCT-GLUCOSE [id number] 07:49:00* Test Item Value Reference Range Interpretation Comments POC-GLUCOSE METER (BEAKER) (test code = 1538) 181 mg/dL 70-110 H TESTED AT [facility] [address] [facility] [address] CBC W/PLT COUNT & AUTO [id number] 07:41:00* Test Item Value Reference Range Interpretation Comments WHITE BLOOD CELL COUNT (BEAKER) (test code = 775) 9.3 K/ L 4.0- 10.0 RED BLOOD CELL COUNT (BEAKER) (test code = 761) 4.77 M/ L 4.20-5 .80 HEMOGLOBIN (BEAKER) (test code = 410) 14.3 GM/DL 13.0-16.8 HEMATOCRIT (BEAKER) (test code = 411) 43.8 % 40.0-50.0 MEAN CORPUSCULAR VOLUME (BEAKER) (test code = 753) 91.7 fL 82. 0-98.0 MEAN CORPUSCULAR HEMOGLOBIN (BEAKER) (test code = 751) 29.9 pg 27.0-33.0 MEAN CORPUSCULAR HEMOGLOBIN CONC (BEAKER) (test code = 752) 32.7 GM/DL 32.0-36.0 RED CELL DISTRIBUTION WIDTH (BEAKER) (test code = 412) 12.8 % 10.3-14.2 PLATELET COUNT (BEAKER) (test code = 756) 276 K/CU MM 150-430 MEAN PLATELET VOLUME (BEAKER) (test code = 754) 8.9 fL 6.5-10 .5 NUCLEATED RED BLOOD CELLS (BEAKER) (test code = 413) 0 /100 WBC 0 -0 NEUTROPHILS RELATIVE PERCENT (BEAKER) (test code = 429) 69 % LYMPHOCYTES RELATIVE PERCENT (BEAKER) (test code = 430) 20 % MONOCYTES RELATIVE PERCENT (BEAKER) (test code = 431) 9 % EOSINOPHILS RELATIVE PERCENT (BEAKER) (test code = 432) 2 % BASOPHILS RELATIVE PERCENT (BEAKER) (test code = 437) 1 % NEUTROPHILS ABSOLUTE COUNT (BEAKER) (test code = 670) 6.50 K/ L 1.80-8.00 LYMPHOCYTES ABSOLUTE COUNT (BEAKER) (test code = 414) 1.80 K/ L 1.48-4.50 MONOCYTES ABSOLUTE COUNT (BEAKER) (test code = 415) 0.80 K/ L 0. 00-1.30 EOSINOPHILS ABSOLUTE COUNT (BEAKER) (test code = 416) 0.20 K/ L 0.00-0.50 BASOPHILS ABSOLUTE COUNT (BEAKER) (test code = 417) 0.10 K/ L 0. 00-0.20 POCT-GLUCOSE [id number] 21:27:00* Test Item Value Reference Range Interpretation Comments POC-GLUCOSE METER (BEAKER) (test code = 1538) 276 mg/dL 70-110 H TESTED AT [address] [address] BLOOD [id number] 19:00:00* Test Item Value Reference Range Interpretation Comments CULTURE (BEAKER) (test code = 1095) No growth in 5 days BLOOD [id number] 19:00:00* Test Item Value Reference Range Interpretation Comments CULTURE (BEAKER) (test code = 1095) No growth in 5 days POCT-GLUCOSE [id number] 18:41:00* Test Item Value Reference Range Interpretation Comments POC-GLUCOSE METER (BEAKER) (test code = 1538) 175 mg/dL 70-110 H TESTED AT [address] [address] BASIC METABOLIC [id number] 17:35:00* Test Item Value Reference Range Interpretation Comments SODIUM (BEAKER) (test code = 381) 137 meq/L 135-148 POTASSIUM (BEAKER) (test code = 379) 3.9 meq/L 3.6-5.5 CHLORIDE (BEAKER) (test code = 382) 105 meq/L 98-106 CO2 (BEAKER) (test code = 355) 21 meq/L 20-29 BLOOD UREA NITROGEN (BEAKER) (test code = 354) 23 mg/dL 10-26 CREATININE (BEAKER) (test code = 358) 1.30 mg/dL 0.50-1.20 H GLUCOSE RANDOM (BEAKER) (test code = 652) 176 mg/dL 70-110 H CALCIUM (BEAKER) (test code = 697) 9.2 mg/dL 8.5-10.5 EGFR (BEAKER) (test code = 1092) 59 mL/min/1.73 sq m ESTIMATED GFR IS NOT ACCURATE CREATININE CLEARANCE IN PREDICTING GLOMERULAR FILTRATION RATE. ESTIMATED GFR IS NOT APPLICABLE FOR DIALYSIS PATIENTS. [id number] 17:29:00* Test Item Value Reference Range Interpretation Comments MAGNESIUM (BEAKER) (test code = 627) 2.4 mg/dL 1.5-3.0 CBC W/PLT COUNT & AUTO [id number] 17:20:00* Test Item Value Reference Range Interpretation Comments WHITE BLOOD CELL COUNT (BEAKER) (test code = 775) 11.3 K/ L 4.0- 10.0 H RED BLOOD CELL COUNT (BEAKER) (test code = 761) 4.86 M/ L 4.20-5 .80 HEMOGLOBIN (BEAKER) (test code = 410) 14.7 GM/DL 13.0-16.8 HEMATOCRIT (BEAKER) (test code = 411) 44.5 % 40.0-50.0 MEAN CORPUSCULAR VOLUME (BEAKER) (test code = 753) 91.5 fL 82. 0-98.0 MEAN CORPUSCULAR HEMOGLOBIN (BEAKER) (test code = 751) 30.2 pg 27.0-33.0 MEAN CORPUSCULAR HEMOGLOBIN CONC (BEAKER) (test code = 752) 33.0 GM/DL 32.0-36.0 RED CELL DISTRIBUTION WIDTH (BEAKER) (test code = 412) 12.6 % 10.3-14.2 PLATELET COUNT (BEAKER) (test code = 756) 309 K/CU MM 150-430 MEAN PLATELET VOLUME (BEAKER) (test code = 754) 8.9 fL 6.5-10 .5 NUCLEATED RED BLOOD CELLS (BEAKER) (test code = 413) 0 /100 WBC 0 -0 NEUTROPHILS RELATIVE PERCENT (BEAKER) (test code = 429) 78 % LYMPHOCYTES RELATIVE PERCENT (BEAKER) (test code = 430) 15 % MONOCYTES RELATIVE PERCENT (BEAKER) (test code = 431) 5 % EOSINOPHILS RELATIVE PERCENT (BEAKER) (test code = 432) 2 % BASOPHILS RELATIVE PERCENT (BEAKER) (test code = 437) 0 % NEUTROPHILS ABSOLUTE COUNT (BEAKER) (test code = 670) 8.80 K/ L 1.80-8.00 H LYMPHOCYTES ABSOLUTE COUNT (BEAKER) (test code = 414) 1.60 K/ L 1.48-4.50 MONOCYTES ABSOLUTE COUNT (BEAKER) (test code = 415) 0.60 K/ L 0. 00-1.30 EOSINOPHILS ABSOLUTE COUNT (BEAKER) (test code = 416) 0.20 K/ L 0.00-0.50 BASOPHILS ABSOLUTE COUNT (BEAKER) (test code = 417) 0.00 K/ L 0. 00-0.20 POCT-GLUCOSE [id number] 16:39:00* Test Item Value Reference Range Interpretation Comments POC-GLUCOSE METER (BEAKER) (test code = 1538) 180 mg/dL 70-110 H TESTED AT [address] [address] POCT-GLUCOSE [id number] 12:54:00* Test Item Value Reference Range Interpretation Comments POC-GLUCOSE METER (BEAKER) (test code = 1538) 331 mg/dL 70-110 H TESTED AT [address] [address] POCT-GLUCOSE [id number] 06:37:00* Test Item Value Reference Range Interpretation Comments POC-GLUCOSE METER (BEAKER) (test code = 1538) 212 mg/dL 70-110 H TESTED AT [address] [address] POCT-GLUCOSE [id number] 20:54:00* Test Item Value Reference Range Interpretation Comments POC-GLUCOSE METER (BEAKER) (test code = 1538) 167 mg/dL 70-110 H TESTED AT [facility] [address] [facility] [address] POCT-GLUCOSE [id number] 17:00:00* Test Item Value Reference Range Interpretation Comments POC-GLUCOSE METER (BEAKER) (test code = 1538) 156 mg/dL 70-110 H TESTED AT [address] [address] ANTI-NUCLEAR ANTIBODY (BRENDEN)2016-10-16 14:30:00* Test Item Value Reference Range Interpretation Comments ANTI-NUCLEAR ANTIBODY (BRENDEN) (BEAKER) (test code = 418) Negative Negative POCT-GLUCOSE [id number] 13:01:00* Test Item Value Reference Range Interpretation Comments POC-GLUCOSE METER (BEAKER) (test code = 1538) 245 mg/dL 70-110 H TESTED AT [address] [address] POCT-GLUCOSE [id number] 11:53:00* Test Item Value Reference Range Interpretation Comments POC-GLUCOSE METER (BEAKER) (test code = 1538) 269 mg/dL 70-110 H TESTED AT [address] [address] POCT-GLUCOSE [id number] 06:15:00* Test Item Value Reference Range Interpretation Comments POC-GLUCOSE METER (BEAKER) (test code = 1538) 263 mg/dL 70-110 H TESTED AT [address] [address] POCT-GLUCOSE [id number] 06:02:00* Test Item Value Reference Range Interpretation Comments POC-GLUCOSE METER (BEAKER) (test code = 1538) 176 mg/dL 70-110 H TESTED AT [address] [address] POCT-GLUCOSE [id number] 05:41:00* Test Item Value Reference Range Interpretation Comments POC-GLUCOSE METER (BEAKER) (test code = 1538) 202 mg/dL 70-110 H TESTED AT [address] [address] POCT-GLUCOSE [id number] 05:21:00* Test Item Value Reference Range Interpretation Comments POC-GLUCOSE METER (BEAKER) (test code = 1538) 183 mg/dL 70-110 H TESTED AT [facility] [address] [facility] [address] POCT-GLUCOSE [id number] 05:05:00* Test Item Value Reference Range Interpretation Comments POC-GLUCOSE METER (BEAKER) (test code = 1538) 176 mg/dL 70-110 H TESTED AT [facility] [address] [facility] [address] POCT-GLUCOSE [id number] 04:59:00* Test Item Value Reference Range Interpretation Comments POC-GLUCOSE METER (BEAKER) (test code = 1538) 269 mg/dL 70-110 H TESTED AT [facility] [address] [facility] [address] TROPONIN [id number] 13:40:00* Test Item Value Reference Range Interpretation Comments TROPONIN I (BEAKER) (test code = 397) < ng/mL 0.00-0.15 Troponin I (TnI) levels [...] per sistent tachyarrhythmia.CREATINE KINASE (CK), TOTAL AND [id number] 13:40:00* Test Item Value Reference Range Interpretation Comments CREATINE KINASE TOTAL (BEAKER) (test code = 380) 46 U/L 40-25 0 CREATINE KINASE-MB (BEAKER) (test code = 750) 0.6 ng/mL 0.0-4.9 CREATINE KINASE-MB INDEX (BEAKER) (test code = 395) 1.3 % CK-MB Reference Range:<5 Normal5-10 Borderline>10 AbnormalBASIC METABOLIC [id number] 13:40:00* Test Item Value Reference Range Interpretation Comments SODIUM (BEAKER) (test code = 381) 138 meq/L 135-148 POTASSIUM (BEAKER) (test code = 379) 4.0 meq/L 3.6-5.5 CHLORIDE (BEAKER) (test code = 382) 102 meq/L 98-106 CO2 (BEAKER) (test code = 355) 23 meq/L 20-29 BLOOD UREA NITROGEN (BEAKER) (test code = 354) 12 mg/dL 10-26 CREATININE (BEAKER) (test code = 358) 1.20 mg/dL 0.50-1.20 GLUCOSE RANDOM (BEAKER) (test code = 652) 316 mg/dL 70-110 H CALCIUM (BEAKER) (test code = 697) 9.3 mg/dL 8.5-10.5 EGFR (BEAKER) (test code = 1092) 65 mL/min/1.73 sq m ESTIMATED GFR IS NOT ACCURATE CREATININE CLEARANCE IN PREDICTING GLOMERULAR FILTRATION RATE. ESTIMATED GFR IS NOT APPLICABLE FOR DIALYSIS PATIENTS. CBC W/PLT COUNT & AUTO [id number] 12:50:00* Test Item Value Reference Range Interpretation Comments WHITE BLOOD CELL COUNT (BEAKER) (test code = 775) 11.6 K/ L 4.0- 10.0 H RED BLOOD CELL COUNT (BEAKER) (test code = 761) 4.94 M/ L 4.20-5 .80 HEMOGLOBIN (BEAKER) (test code = 410) 15.0 GM/DL 13.0-16.8 HEMATOCRIT (BEAKER) (test code = 411) 45.2 % 40.0-50.0 MEAN CORPUSCULAR VOLUME (BEAKER) (test code = 753) 91.4 fL 82. 0-98.0 MEAN CORPUSCULAR HEMOGLOBIN (BEAKER) (test code = 751) 30.3 pg 27.0-33.0 MEAN CORPUSCULAR HEMOGLOBIN CONC (BEAKER) (test code = 752) 33.1 GM/DL 32.0-36.0 RED CELL DISTRIBUTION WIDTH (BEAKER) (test code = 412) 12.5 % 10.3-14.2 PLATELET COUNT (BEAKER) (test code = 756) 255 K/CU MM 150-430 MEAN PLATELET VOLUME (BEAKER) (test code = 754) 9.4 fL 6.5-10 .5 NEUTROPHILS RELATIVE PERCENT (BEAKER) (test code = 429) 81 % LYMPHOCYTES RELATIVE PERCENT (BEAKER) (test code = 430) 10 % MONOCYTES RELATIVE PERCENT (BEAKER) (test code = 431) 6 % EOSINOPHILS RELATIVE PERCENT (BEAKER) (test code = 432) 3 % BASOPHILS RELATIVE PERCENT (BEAKER) (test code = 437) 0 % NEUTROPHILS ABSOLUTE COUNT (BEAKER) (test code = 670) 9.40 K/ L 1.80-8.00 H LYMPHOCYTES ABSOLUTE COUNT (BEAKER) (test code = 414) 1.20 K/ L 1.48-4.50 L MONOCYTES ABSOLUTE COUNT (BEAKER) (test code = 415) 0.70 K/ L 0. 00-1.30 EOSINOPHILS ABSOLUTE COUNT (BEAKER) (test code = 416) 0.30 K/ L 0.00-0.50 BASOPHILS ABSOLUTE COUNT (BEAKER) (test code = 417) 0.00 K/ L 0. 00-0.20 POCT-GLUCOSE [id number] 05:43:00* Test Item Value Reference Range Interpretation Comments POC-GLUCOSE METER (BEAKER) (test code = 1538) 183 mg/dL 70-110 H TESTED AT [address] [address] POCT-GLUCOSE [id number] 21:00:00* Test Item Value Reference Range Interpretation Comments POC-GLUCOSE METER (BEAKER) (test code = 1538) 189 mg/dL 70-110 H TESTED AT [address] [address] POCT-GLUCOSE [id number] 16:49:00* Test Item Value Reference Range Interpretation Comments POC-GLUCOSE METER (BEAKER) (test code = 1538) 230 mg/dL 70-110 H TESTED AT [address] [address] POCT-GLUCOSE [id number] 12:01:00* Test Item Value Reference Range Interpretation Comments POC-GLUCOSE METER (BEAKER) (test code = 1538) 219 mg/dL 70-110 H TESTED AT [address] [address] POCT-GLUCOSE [id number] 07:13:00* Test Item Value Reference Range Interpretation Comments POC-GLUCOSE METER (BEAKER) (test code = 1538) 206 mg/dL 70-110 H TESTED AT [place] [id number] [facility] [address] VANCOMYCIN LEVEL, [id number] 05:07:00* Test Item Value Reference Range Interpretation Comments VANCOMYCIN TROUGH (BEAKER) (test code = 522) 12.5 ug/mL 10.0-20.0 B-TYPE NATRIURETIC FACTOR (BNP)2016-10-13 04:52:00* Test Item Value Reference Range Interpretation Comments B-TYPE NATRIURETIC PEPTIDE (BINDU) (test code = 700) 21 pg/mL 0-100 Draw labs at 7 am Sunday 14POCT-GLUCOSE [id number] 21:33:00* Test Item Value Reference Range Interpretation Comments POC-GLUCOSE METER (BINDU) (test code = 1538) 229 mg/dL 70-110 H TESTED AT [place] [id number] POCT-GLUCOSE [id number] 19:05:00* Test Item Value Reference Range Interpretation Comments POC-GLUCOSE METER (BINDU) (test code = 1538) 243 mg/dL 70-110 H TESTED AT [place] [id number] T4, [id number] 18:34:00* Test Item Value Reference Range Interpretation Comments FREE T4 (BINDU) (test code = 655) 1.03 ng/dL 0.90-1.80 [id number] 18:33:00* Test Item Value Reference Range Interpretation Comments THYROID STIMULATING HORMONE (BINDU) (test code = 772) 1.10 uIU/mL 0.35-5.50 POCT-GLUCOSE [id number] 15:09:00* Test Item Value Reference Range Interpretation Comments POC-GLUCOSE METER (BINDU) (test code = 1538) 202 mg/dL 70-110 H TESTED AT [place] [id number]
[2019-12-19 12:34] LABS: CLARITY,URINE SL CLOUDY (CLEAR); COLOR,URINE YELLOW (YELLOW); LEUKOCYTE ESTERASE ,URINE SMALL (NEGATIVE)
[2019-12-19 12:35] LABS: BILIRUBIN,URINE NEGATIVE (NEGATIVE); KETONES,URINE NEGATIVE (NEGATIVE); NITRITE,URINE POSITIVE (NEGATIVE); PROTEIN,URINE DIPSTICK NEGATIVE (NEGATIVE); URINE UROBILINOGEN 0.2 mg/dL (0.2 - 1)
[2019-12-19 12:50] LABS: BACTERIA,URINE FEW /HPF; EPITHELIAL CELLS,URINE FEW /LPF
--- OUTSIDE RECORDS SUMMARY | 2019-12-19 13:22 | XMS REPORT | Continuity of Care Document ---
Author Author [employer] Address Unknown Phone Unavailable Care Team Providers Care Solar Maintenance Technician Name Role Phone [employer] Unavailable Un available Problems Problem [...] on ce a day (in the morning) [facility] 03/19/2015 eCW: Jeff Kothari BD Ultrafine Stephanie [place] as directed as directed Active 4mm x 32G as directed tid [facility] 05/29/2013 eCW: Jeff Kothari Adipex-P 1 tab(s) orally Active 37.5 mg orally once a d ay [facility] 05/29/2013 eCW: Jeff Kothari atorvastatin 1 tab(s) [...] - No Longer Active - - tid [facility] eCW: Jeff Kothari hydrochlorothiazide-losartan 1 tab(s) orally [...] units subcutaneously Active 100 units/ml subcutaneously tid [facility] [place] eCW: Jeff Kothari ONE TOUCH ULTRA [...] eCW: Jeff Kothari BD Ultrafine Stephanie [place] as directed as directed Active 4mm x [...] - check blood sugars 3 times daily [place] eCW: Jeff Kothari Cialis 1 tab(s) orally [...] Date Status Source Jeff Kothari MD Unknown [id number] 04/02/2013 04/02/2013 eCW: Jeff Cruz MD Unknown [id number] 04/02/2013 04/02/2013 eCW: Jeff Cruz MD Unknown [id number] 04/02/2013 04/02/2013 eCW: Jeff Cruz MD Unknown [id number] 04/03/2013 04/03/2013 eCW: Jeff Cruz MD Unknown [id number] 04/03/2013 04/03/2013 eCW: Jeff Cruz MD Unknown [id number] 04/03/2013 04/03/2013 eCW: Jeff Cruz MD Unknown [id number] 04/03/2013 04/03/2013 eCW: Jeff Cruz MD Unknown [id number] 04/03/2013 04/03/2013 eCW: Jeff Cruz MD [facility] [id number] 04/22/2013 04/22/2013 eCW: Jeff Cruz MD [facility] [id number] 04/22/2013 04/22/2013 eCW: Jeff Cruz MD [facility] [id number] 04/22/2013 04/22/2013 eCW: Jeff Cruz MD [facility] [id number] 04/22/2013 04/22/2013 eCW: Jeff Cruz MD [facility] [id number] 04/22/2013 04/22/2013 eCW: Jeff Cruz MD [facility] [id number] 04/22/2013 04/22/2013 eCW: Jeff Cruz MD [facility] [id number] 04/22/2013 04/22/2013 eCW: Jeff Cruz MD 1 yr f/u [id number] 03/19/20 15 03/19/2015 eCW: Jeff Cruz MD 1 yr f/u [id number] 03/19/20 15 03/19/2015 eCW: Jeff Cruz MD 1 yr f/u [id number] 03/19/20 15 03/19/2015 eCW: Jeff Cruz MD 1 yr f/u [id number] 03/19/20 15 03/19/2015 eCW: Jeff Cruz MD 1 yr f/u [id number] 03/19/20 15 03/19/2015 eCW: Jeff Cruz MD 1 yr f/u [id number] 03/19/20 15 03/19/2015 eCW: Jeff Cruz MD 1 month (Reason: Diabetes) [id number] 04/20/2015 04/20/2015 eCW: Jeff Cruz MD 1 month (Reason: Diabetes) [id number] 04/20/2015 04/20/2015 eCW: Jeff Cruz MD 1 month (Reason: Diabetes) [id number] 04/20/2015 04/20/2015 eCW: Jeff Cruz MD 1 month (Reason: Diabetes) [id number] 04/20/2015 04/20/2015 eCW: Jeff Cruz MD 1 month (Reason: Diabetes) [id number] 04/20/2015 04/20/2015 eCW: Jeff Cruz MD 3 Months (Reason: Diabetes ) [id number] 08/17/2015 08/17/2015 eCW: Jeff Cruz MD 3 Months (Reason: Diabetes ) [id number] 08/17/2015 08/17/2015 eCW: Jeff Cruz MD 3 Months (Reason: Diabetes ) [id number] 08/17/2015 08/17/2015 eCW: Jeff Cruz MD 3 Months (Reason: Diabetes ) [id number] 08/17/2015 08/17/2015 eCW: Jeff Cruz MD 3 Months (Reason: Diabetes) [id number] 11/19/2015 11/19/2015 eCW: Jeff Cruz MD 3 Months (Reason: Diabetes) [id number] 11/19/2015 11/19/2015 eCW: Jeff Cruz MD 3 Months (Reason: Diabetes) [id number] 11/19/2015 11/19/2015 eCW: Jeff Cruz MD 3 Months (Reason: Diabete s) [id number] 02/18/2016 02/18/2016 eCW: Jeff Cruz MD 3 Months (Reason: Diabete s) [id number] 02/18/2016 02/18/2016 eCW: Jeff Cruz MD 3nm x dm [id number] 05/19/19 17 05/19/2016 eCW: Jeff Kothari Procedures No Data Provided for This Section Assessment and Plan No Data Provided for This Section Plan of Care No Data Provided for This Section Social History Social History Date Source Social History ElementQualifiersDate Rep orted Language: . Sudanese Feb 18, 2016 Marital Status: . Feb 18, 2016 Caffeine: yes. 3 c/day 1 coffee, 1 coke, 1 tea Feb 18, 2016 Exercise: no. Feb 18, 2016 Smoking/Tobacco Use: no. Patient is a: Former Smoker Quit 18 years ago Feb 18, 2016 Alcohol: socially. 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
--- OUTSIDE RECORDS SUMMARY | 2019-12-19 13:22 | XMS REPORT | Clinical Summary ---
Author Author [facility] [employer] Address Unknown Phone Unavailable Care Team Providers Care Dust Collector Attendant Name Role Phone Jose Francisco Santo MD [...] 08/21/2017 Overview: Added automatically from [facility] for [facility] [id number] Obesity (BMI 30-39.9) 07/13/2017 Other hyperlipidemia 07/13/2017 Type 2 diabetes mellitus without complication, with l cirilo-term current use 07/13/2017 of insulin Overview: dx appx 2013; poor adherence to diet an d meds Coronary artery disease involving [place] coronary art oscar of [place] heart 07/13/2017 without angina pectoris Benign hypertensive [...] ot Implanted Type Area Manufactur er 06/04/2018 [id number] / / [id number] Stent Coronary Syst Synergy (Mr) Coronary N/A: N/A BSC 3.00mm X 16mm - [id number] Stents INTERVENTI Implanted: 09/06/2017 at [facility] (Quantity not on file) CARDIOLOGY Results Not on fileafter 12/18/2018 Advance Directives For more information, please contact: [phone] Patient Director Child Explanation Type Date Recorded Advance Directives, 08/31/2017 12:58 PM Living Will and Medical Power of Assistant Prosecuting Attorney Advance Directives, 08/28/2017 1:30 PM Living Will and Medical Power of Assistant Prosecuting Attorney
--- OUTSIDE RECORDS SUMMARY | 2019-12-19 13:22 | XMS REPORT | Clinical Summary ---
Author Author GERMAINE [facility] Address Unknown Phone Unavailable Care Team Providers Care Electric Locomotive Firer/Fireman Name Role Phone PCP Unavailable Allergies No [...] Manufactur er 2.25 X 20 SYNERGY / [id number] / [id number] 2.25 X 20 Synergy Stents-Cor Left: Coronary [place] Implanted: Qty: 1 on 10/17/2016 by [employer] Mati Augustine Jr., MD SYNERGY / [id number] / [id number] Stent [place] Implanted: Qty: 1 on 10/17/2016 by [employer] Mati Beach Jr., MD Results Not on fileafter 12/18/2018
--- OUTSIDE RECORDS SUMMARY | 2019-12-19 13:23 | XMS REPORT | Continuity of Care Document ---
Author Author [facility] t Organization [facility] Address [address] [place] [address] Phone Unavailable Care Team Providers Care Senior Ui Designer Name Role Phone JULIA WHITING, [place] PCP Lizette HUMPHREYS Attphys Unavailable DUMONT, SOUHEIL Attphys Unavailable Rehana Medel Attphys Unavailable Yariel WHITING, Javad Paez Attphys [phone] Megan LOPEZ Attphys Unavailable CLEMENT, PURUSHOTTAM BHAGWAT Attphys Unavailable DUMONT, SOUHEIL Admphys Unavailable CLEMENT, PURUSHOTTAM BHAGWAT Admphys Unavailable Payers Payer Name Policy Type Policy Number Effective Date Expiration Date Lizette carmona [facility] [id number] 2015 00:00:00 GERMAINE Elias - [facility] Problems Condition Name Condition Details Condition Category Status Onset Date Resolution Date Last Treatment Date Treating Clinician Comments Source Biceps tendinitis of right shoulder Biceps tendinitis of right s [place] Disease Active 2017-12-04 00:00:00 James reed [facility] Superior glenoid labrum lesion of right shoulder Super ior glenoid labrum lesion of right shoulder Disease Active 2017-12-04 00:00:00 Adal [employer] Impingement syndrome of right shoulder Impingement syndrome [...] Overview: Added automatically from request for surgery [id number] Adal Colon Obesity (BMI 30-39.9) Obesity (BMI [...] meds Adal Colon 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 Disease Active 2017-07-13 00:00:00 Adal Colon Benign hypertensive heart disease without congestive h eart failure Benign hypertensive heart disease without congestive heart failure Disease Active 2017-07-13 00:00:00 Overview: htn dx 2003 ; CAD dx 2016 Adal Colon History of pneumococcal vaccination History of pneumococcal vacc ination Disease Active 2017-07-13 00:00:00 [place] [facility] Right shoulder tendinitis Right shoulder tendinitis Disease Ac tive 2017-07-13 00:00:[address] Pneumonia Pneumonia Disease Active 2016-10-12 00:00:00 [facility] Syncope Syncope Disease Active 2015-10-25 00:00:00 [facility] Chest pain Chest pain Disease Active 2015-10-25 00:00:00 [facility] Non-ST elevation (NSTEMI) myocardial infarction Non-ST MAHNAZ (non-ST elevated myocardial infarction) Problem Active C [facility] Stented coronary artery Stented coronary artery Disease Active [place] [facility] JEIMY (obstructive sleep apnea) JEIMY (obstructive sleep apnea) Disease Active [place] [facility] Hyperlipidemia, mixed Hype rlipidemia, mixed Active Problem [...] [EKG] Active Problem 10/27/2016 eCW: Jeff Kothari Problem Active 2016-10-27 02:00:11 Elodia Butcher Hyperlipidemia Hype rlipidemia Active Problem 10/27/2016 eCW: Jeff Kothari Problem Active 2016-10-27 02:00:11 Elodia Butcher Chest Pain Ches t Pain Active Problem 10/27/2016 eCW: Jeff Kothari Problem Active 2016-10-27 02:00:11 [facility] Diabetes Type 2 Uncontrolled D iabetes Type 2 Uncontrolled Active Problem 10/27/2016 eCW: Jeff Kothari Problem Active 2016-10-27 02:00:11 [facility] HEADACHE SYNDROME NEC HEAD ACHE SYNDROME NEC Active Problem 10/27/2016 eCW: Jeff Kothari Problem Active 2016-10-27 02: 00:11 [facility] Hypertension Hype rtension Active Problem 10/27/2016 eCW: Jeff Kothari Problem Active 2016-10-27 02:00:11 [facility] BMI 35.0-35.9,adult BMI 35.0-35.9,adult Active Problem 10/27/2016 eCW: Jeff Kothari Problem Active 2016-10-27 02:00:11 [facility] Obesity, unspecified Obes ity, unspecified Active Problem 10/27/2016 eCW: Jeff Kothari Problem Active 2016-10-27 02: 00:11 [facility] BMI 38.0-38.9,adult BMI 38.0-38.9,adult Active Problem 10/27/2016 eCW: Jeff Kothari Problem Active 2016-10-27 02:00:11 [facility] No-show for appointment No-s how for appointment Active Diagnosis 06/17/2016 eCW: Jeff Kothari Diagnosis Active 2016-06-17 03:25:39 [facility] Allergies, Adverse Reactions, Alerts Allergy Name Allergy Type Status Severity Reaction(s) Onset Date Inacti ve Date Treating Clinician Comments Source N.K.D.A. N.K.D.A. Active Info Not Available 2016-02-18 00:00:00 [facility] Family History Family Member Diagnosis Comments Start Date Stop Date Source Natural father Heart disease [facility] Natural father Stroke [facility] Natural father CABG/Stent [facility] thodist Natural father Heart disease [place] [facility] Maternal grandfather Cancer [facility] Natural mother Stroke [facility] Natural mother No Known Problems Leann timbo [employer] Paternal grandfather Cancer [facility] Unknown Family Member Family History 2013-05-15 04:51:59 2 04:51:59 [facility] Social History Social Habit Start Date Stop Date Quantity Comments Source History of tobacco use Current smoker Adal Colon Sex Assigned At Leann izquierdo [facility] Cigarettes smoked current (pack per day) - Reported 00:00:00 2018-04-10 00:00:00 Adal Colon Alcohol intake 2018-04-10 00:00:00 2018-04-10 00:00:00 Current drinker of alcohol (finding) Adal Colon Language: 2016-02-18 00:00:00 2016-02-18 00:00:00 [facility] Smoking Status Start Date Stop Date Source Former smoker 2018-04-10 00:00:00 2018-04-10 00:00:00 Adal Colon Current every day smoker 2016-10-18 00:00:00 [facility] Medications Ordered Medication Name Filled Medication [...] 2016-10-26 00:00:00 Yes Judy Kothari 1 tab(s) [facility] Synjardy 2016-10-26 00:00:00 Yes Judy Kothari 1 tab(s) [facility] ticagrelor (BRILINTA) 90 mg Tab tablet 2016-10-18 00:00:00 Yes 90mg Q.5D Take 1 tablet (90 mg total) by mouth 2 (two) times daily. [facility] Missing or Non-Formulary Medication 2016-10-14 16:25:24 Yes 1.5mg Q7D Inject 1.5 mg subcutaneously once a week Trulicity (dulaglutide). Patient takes once a week on Saturdays. . [facility] levocetirizine (XYZAL) 5 MG tablet 2016-10-12 13:27:30 Yes 5mg QD Take 5 mg by mouth every evening. [facility] NIFEdipine (PROCARDIA-XL) 60 MG (OSM) 24 hr tablet 2016-10 13:27:30 Yes 60mg QD Take 60 mg by mouth every evening. [facility] atorvastatin 2016-02-25 02:33:29 Yes Judy Kothari 1 tab(s) [facility] Lantus Solostar Pen 2016-02-25 02:33:29 Yes Judy song 24 units [facility] Humalog KwikPen 2016-02-25 02:33:29 Yes Judy Kothari 12 units [facility] Xigduo XR 2016-02-25 02:33:29 Yes Judy Kothari 1 tab(s) [facility] Pioglitazone Hydrochloride 2016-02-25 02:33:29 Yes Judy Kothari 1 tab(s) [facility] BD Ultrafine Stephanie Pen [place] 2016-02-25 02:33:29 Yes Judy Kothari as directed [facility] Trulicity Pen 2016-02-25 02:33:29 Yes Judy Kothari 1.5 mg [facility] OneTouch Delica Lancets 30g 2016-02-25 02:33:29 Yes Judy Kothari as directed [facility] Aspir 81 2016-02-25 02:33:29 Yes Judy Kothari 1 tab(s) [facility] OneTouch Ultra Test Strip 2016-02-25 02:33:29 Yes Judy Kothari as directed [facility] AmLODIPine Besylate 2016-02-25 02:33:29 Yes Judy song [...] QD Take 320 mg by mouth daily. [facility] atorvastatin (LIPITOR) 20 MG tablet 2015-10-25 17:23:33 Yes 20mg QD Take 20 mg by mouth nightly. [facility] valsartan 2015-08-17 00:00:00 Yes Judy Kothari [...] 2015-06-18 04:33:49 Yes Randy Guthrie 1 tablet [facility] amlodipine 2015-06-18 04:33:49 No Sony Cadenaes 1 tab(s) [facility] ONE TOUCH ULTRA TEST STRIPS 2015-06-18 04:33:49 No Krishna Guthrie check blood sugar [facility] Cialis 2015-04-20 00:00:00 Yes Sony Cadenaes 1 tab(s) [facility] Pioglitazone Hydrochloride 2015-03-19 00:00:00 Yes Richard harshad [place] 1 tab(s) [facility] OneTouch Delica Lancets 30g 2015-03-19 00:00:00 Yes Krishna Guthrie as directed [facility] Aspir 81 2015-03-19 00:00:00 Yes Sony Cadenaes 1 tab(s) [facility] atenolol 2015-03-19 00:00:00 Yes Sony Guthrie 1 tab(s) [facility] OneTouch Ultra Test Strip 2015-03-19 00:00:00 Yes Clari Guthrie as directed [facility] Trulicity Pen 2015-03-19 00:00:00 Yes Sony Guthrie 1.5 mg [facility] Xigduo XR 2015-03-19 00:00:00 Yes Sony Cadenaes 1 tab(s) [facility] BD Ultrafine Stephanie Pen [place] 2013-05-29 00:00:00 Yes Sony Guthrie as directed [facility] Adipex-P 2013-05-29 00:00:00 Yes Sony Cadenaes 1 tab(s) [facility] ibuprofen 2013-05-15 04:51:59 No Sony Cadenaes 1 tab(s) [facility] Aspirin 81 Mg Tab.chew Aspirin 81 Mg Tab.chew Yes [facility] Atenolol 50 Mg Tablet Atenolol 50 Mg Tablet Yes 100 [facility] Atorvastatin Calcium (Lipitor) 20 Mg Tablet Atorvastat in Calcium (Lipitor) 20 Mg Tablet Yes 20 Daily [facility] Insulin Lispro (Humalog) 100 Unit/1 Ml Cartridge Insul in Lispro (Humalog) 100 Unit/1 Ml Cartridge Yes [facility] Levocetirizine Dihydrochloride (Xyzal) 5 Mg Tablet Lev ocetirizine Dihydrochloride (Xyzal) 5 Mg Tablet Yes 5 Da jamal [facility] Levofloxacin (Levaquin) 250 Mg Tablet Levofloxacin (Levaquin) 250 M g Tablet Yes 250 Daily [facility] Levofloxacin (Levaquin) 500 Mg Tablet Levofloxacin (Levaquin) 500 M g Tablet Yes 500 Daily [facility] Nifedipine (Procardia Xl) 30 Mg Tab.er.24 Nifedipine ( Procardia Xl) 30 Mg Tab.er.24 Yes 60 Daily [facility] Pioglitazone Hcl 45 Mg Tablet Pioglitazone Hcl 45 Mg Tablet Yes 15 Daily [facility] Sucralfate (Carafate) 1 Gm/10 Ml Oral.susp Sucralfate (Carafate) 1 Gm/10 Ml Oral.susp Yes 1 Twice A Day [facility] Ticagrelor (Brilinta) 90 Mg Tablet Ticagrelor (Brilinta) 90 Mg Tablet Yes Twice A Day [facility] Valsartan (Diovan) 160 Mg Tab Valsartan (Diovan) 160 Mg Tab Yes 320 Daily [facility] Vital Signs Vital Name Observation Time Observation Value Comments Source Weight 2016-02-18 18:00:00 [facility] 2016-02-18 18:00:00 [facility] Diastolic (mm Hg) 2016-02-18 18:00:00 [facility] [place] Systolic (mm Hg) 2016-02-18 18:00:00 Glenn Butcher Weight 2015-11-19 18:15:00 [facility] Height 2015-11-19 18:15:00 [facility] Diastolic (mm Hg) 2015-11-19 18:15:00 [facility] Systolic (mm Hg) 2015-11-19 18:15:00 Glenn Butcher Weight 2015-08-17 16:15:00 [facility] Height 2015-08-17 16:15:00 [facility] Diastolic (mm Hg) 2015-08-17 16:15:00 [facility] [place] Systolic (mm Hg) 2015-08-17 16:15:00 Glenn Butcher Weight 2015-04-20 17:00:00 [facility] Height 2015-04-20 17:00:00 [facility] Diastolic (mm Hg) 2015-04-20 17:00:00 [facility] [place] Systolic (mm Hg) 2015-04-20 17:00:00 [facility] Weight 2015-03-19 19:15:00 [facility] Height 2015-03-19 19:15:00 [facility] Diastolic (mm Hg) 2015-03-19 19:15:00 [facility] [place] Systolic (mm Hg) 2015-03-19 19:15:00 Glenn [facility] [place] Weight 2013-04-22 15:15:00 [facility] Height 2013-04-22 15:15:00 [facility] Diastolic (mm Hg) 2013-04-22 15:15:00 [facility] [place] Systolic (mm Hg) 2013-04-22 15:15:00 Glenn [facility] [place] Weight 2013-04-02 15:00:00 [facility] Height 2013-04-02 15:00:00 [facility] Diastolic (mm Hg) 2013-04-02 15:00:00 [facility] Systolic (mm Hg) 2013-04-02 15:00:00 [facility] Procedures Procedure Date / Time Performed Performing Clinician [facility] e Esophagogastroduodenoscopy (EGD) with pl acement of percutaneous endoscopic gastrostomy (PEG) 2019-08-20 00:00:00 ROLY DUMONT [facility] Ultrasound guidance for vascular access 2019-08-12 00:00:00 BRIANDA LIRA [facility] Ultrasound of chest including mediastinum 2019-08-09 00:00:00 BRIANDA STEEL [facility] Tracheostomy 2019-08-08 00:00:00 MORRO BARAKAT [facility] Computed tomography of chest without contrast 2019-07-23 00: 00:00 KHUSHBOO LOPEZ [facility] Plan of Care Planned Activity Planned Date Details Comments Source Future Scheduled Test 2020-01-06 00:00:00 INFLUENZA VACCINE [code = INFLUENZA VACCINE] [facility] Future Scheduled Test 2019-10-10 00:00:00 DIABETIC RETINAL E YE EXAM [code = DIABETIC RETINAL EYE EXAM] [facility] Future Scheduled Test 2018 00:00:00 COLONOSCOPY SCREEN ING [code = COLONOSCOPY SCREENING] [facility] Future Scheduled Test 2018 00:00:00 SHINGLES VACCINES (#1) [code = SHINGLES VACCINES (#1)] [facility] Future Scheduled Test 2018-09-03 00:00:00 URINE MICROALBUMIN [code = URINE MICROALBUMIN] [facility] Future Scheduled Test 2018-08-31 00:00:00 DIABETIC FOOT EXAM [code = DIABETIC FOOT EXAM] [facility] Encounters Start Date/Time End Date/Time [facility] ID Source 2019-07-23 22:20:00 2019-08-27 11:59:00 Discharged Inpatient [address] [facility] [id number] [facility] 2019-07-22 11:05:00 2019-07-22 14:40:00 Departed Emergency Room [address] [facility] [id number] [facility] 2019-07-16 14:51:00 2019-07-16 21:51:00 Departed Emergency Room [address] [facility] [id number] [facility] 2016-10-26 10:02:00 2016-10-26 10:02:00 Outpatient Jeff Kothari M.D., P.A. Jeff Kothari M.D., P.A. [id number] [employer]Clin icalWorks 2016-05-19 15:00:00 2016-05-19 15:00:00 Outpatient Jeff Kothari MD, Jose MD [id number] [employer]ClinicalWorks 2016-02-18 13:00:00 2016-02-18 13:00:00 Outpatient Jeff Kothari MD, Jose MD [id number] [employer]ClinicalWorks 2015-11-19 13:15:00 2015-11-19 13:15:00 Outpatient Jeff Kothari MD, Jose MD [id number] [employer]ClinicalWorks 2015-08-17 11:15:00 2015-08-17 11:15:00 Outpatient Jeff Kothari MD, Jose MD [id number] [employer] 2015-04-20 11:00:00 2015-04-20 11:00:00 Outpatient Jeff Kothari MD, Jose MD [id number] eClBehalf 2015-03-19 13:15:00 2015-03-19 13:15:00 Outpatient Jeff Kothari MD, Jose MD [id number] [place] [facility] [employer] 2013-04-22 09:15:00 2013-04-22 09:15:00 Outpatient Jeff Kothari MD, Jose MD [id number] [facility] [facility] 2013-04-02 18:17:00 2013-04-02 18:17:00 Outpatient Jeff Kothari MD, Jeff WHITING [id number] [employer] Results Test Description Test Time Test Comments Results Result Comments Source CHEST SINGLE (PORTABLE) 2019-12-19 11:35:00 [place] [address] Patient Name: EDWARD GONSALEZ MR #: [id number] : 1970 Age/Sex: 49/M Req #: [id number] Adm Physician: Ordered by: BENNY HUMPHREYS DO Report #: [id number] Location: ER Room/Bed: Procedure: [id number] DX/CHEST SINGLE (PORTABLE) Exam Date: 12/19/19 Exam [...] (test code = 2744-1) 7.31 7.35-7.45 L [facility] Partial Pressure CO2 2019-08-27 10:06:00* Test Item Value Reference Range Interpretation Comments Arterial Blood Partial Pressure CO2 (test code = 2018-) 52 35-45 H [facility] Partial Pressure O2 2019-08-27 10:06:00* Test Item Value Reference Range Interpretation Comments Arterial Blood Partial Pressure O2 (test code = 2018-) 82 80-105 [facility] [id number] 10:06:00* Test Item Value Reference Range Interpretation Comments Arterial Blood HCO3 (test code = 1960-4) 27 22-26 H [facility] Base Ucfuzf4879-67-38 10:06:00* Test Item Value Reference Range Interpretation Comments Arterial Blood Base Excess (test code = 1925-7) 0.0 -2-3 [facility] Oxygen Saturation 2019-08-27 10:06:00* Test Item Value Reference Range Interpretation Comments Arterial Blood Oxygen Saturation (test code = 2708-6) 95.0 95-98 [facility] HospitalFiO22020-04-22 10:06:00* Test Item Value Reference Range Interpretation Comments FiO2 (test code = FiO2) 60 [facility] HospitalBedside Ghepgge3480-20-55 09:02:00* Test Item Value Reference Range Interpretation Comments Bedside Glucose (test code = 14278-8) 156 70-120 H Meter ID: [id number] McKinney HospitalPhosphorus Level 2019-08-27 06:56:00* Test Item Value Reference Range Interpretation Comments Phosphorus Level (test code = CIY8057) 2.5 2.3-4.7 [facility] HospitalMagnesium Dfiqu3745-46-76 06:56:00* Test Item Value Reference Range Interpretation Comments Magnesium Level (test code = 46068-1) 2.7 1.3-2.1 H [facility] HospitalCHES SINGLE (PORTABLE)2019-08-27 06:12:00 [facility] [address] [address] Patient Name: EDWARD GONSALEZ MR #: [id number] : 1970 Age/Sex: 48/M Req #: [id number] Adm Physician: CHINA DUMONT MD Ordered by: BRIANDA PETIT MD Report #: [id number] Location: ICU Room/Bed: ICU [facility] Procedure: [id number] DX/CH EST SINGLE (PORTABLE) Exam Date: 08/27/19 [...] 08/27/19613 COPY TO: BRIANDA ANDUJAR MD Sodium Cqjif3409-65-61 06:03:00* Test Item Value Reference Range Interpretation Comments Sodium Level (test code = 2951-2) 139 136-145 [facility] HospitalPotassium Sshqe8342-22-94 06:03:00* Test Item Value Reference Range Interpretation Comments Potassium Level (test code = 2823-3) 4.2 3.5-5.1 [facility] HospitalChloride Mwrax2523-67-75 06:03:00* Test Item Value Reference Range Interpretation Comments Chloride Level (test code = 2075-0) 104 98-107 [facility] HospitalCarbon Dioxide Gahdu3646-43-63 06:03:00* Test Item Value Reference Range Interpretation Comments Carbon Dioxide Level (test code = 2028-9) 28 22-29 [facility] HospitalAnion Azb2305-09-71 06:03:00* Test Item Value Reference Range Interpretation Comments Anion Gap (test code = 91270-1) 11.2 8-16 [facility] HospitalBlood Urea Npveqzjr1936-05-88 06:03:00* Test Item Value Reference Range Interpretation Comments Blood Urea Nitrogen (test code = 3094-0) 57 7-26 H [facility] HospitalCreatinine2020-04-22 06:03:00* Test Item Value Reference Range Interpretation Comments Creatinine (test code = 2160-0) 4.10 0.72-1.25 H [facility] HospitalBUN/Creatinine Fqwtf8133-60-43 06:03:00* Test Item Value Reference Range Interpretation Comments BUN/Creatinine Ratio (test code = 3097-3) 14 6-25 [facility] HospitalEstimat Glomerular Filtration Rate 2019-08-27 06:03:00* Test Item Value Reference Range Interpretation Comments Estimat Glomerular Filtration Rate (test code = 374743101) 16 >60 L Ranges were taken from the National Kidney Disease Education Program and the [facility] literature.Reference ranges:60 or greater: Wspxys95-89 ( for 3 consecutive months): Chronic kidney disease 15 or less: Kidney failureMethodist McKinney HospitalGlucose Mtqcu9213-51-77 06:03:00* Test Item Value Reference Range Interpretation Comments Glucose Level (test code = OVY7984) 142 74-118 H [facility] HospitalCalcium Nyejj4357-03-04 06:03:00* Test Item Value Reference Range Interpretation Comments Calcium Level (test code = 24937-3) 9.2 8.4-10.2 [facility] HospitalTotal Mhaqascvb2305-36-10 06:03:00* Test Item Value Reference Range Interpretation Comments Total Bilirubin (test code = 1975-2) 0.2 0.2-1.2 [facility] HospitalAspartate Amino Transf (AST/SGOT) 2019-08-27 06:03:00* Test Item Value Reference Range Interpretation Comments Aspartate Amino Transf (AST/SGOT) (test code = Aspartate Amino Transf (AST/SGOT)) 16 5-34 [facility] HospitalAlanine Aminotransferase (ALT/SGPT) 2019-08-27 06:03:00* Test Item Value Reference Range Interpretation Comments Alanine Aminotransferase (ALT/SGPT) (test code = 1742-6) < 6 0-55 [facility] HospitalTotal Hwzynvd5233-33-66 06:03:00* Test Item Value Reference Range Interpretation Comments Total Protein (test code = 2885-2) 7.0 6.5-8.1 [facility] HospitalAlbumin2020-04-22 06:03:00* Test Item Value Reference Range Interpretation Comments Albumin (test code = 1751-7) 2.8 3.5-5.0 L [facility] HospitalGlobulin2020-04-22 06:03:00* Test Item Value Reference Range Interpretation Comments Globulin (test code = 45176-5) 4.2 2.3-3.5 H [facility] HospitalAlbumin/Globulin Qgzws9910-75-99 06:03:00 * Test Item Value Reference Range Interpretation Comments Albumin/Globulin Ratio (test code = 1759-0) 0.7 0.8-2.0 L [facility] HospitalAlkaline Ixfbrnmpzjv6111-65-88 06:03:00* Test Item Value Reference Range Interpretation Comments Alkaline Phosphatase (test code = 6768-6) 101 40-150 [facility] HospitalWhite Blood Rhulb3029-14-79 05:44:00* Test Item Value Reference Range Interpretation Comments White Blood Count (test code = 6690-2) 14.82 4.8-10.8 H [facility] HospitalRed Blood Dcfup4270-53-38 05:44:00* Test Item Value Reference Range Interpretation Comments Red Blood Count (test code = 789-8) 2.74 4.3-5.7 L [facility] HospitalHemoglobin2020-04-22 05:44:00* Test Item Value Reference Range Interpretation Comments Hemoglobin (test code = 83043-9) 8.2 14.0-18.0 L [facility] HospitalHematocrit2020-04-22 05:44:00* Test Item Value Reference Range Interpretation Comments Hematocrit (test code = 4544-3) 27.1 38.2-49.6 L [facility] HospitalMean Corpuscular Gkoxvb7786-46-92 05:44:00* Test Item Value Reference Range Interpretation Comments Mean Corpuscular Volume (test code = 787-2) 98.9 81-99 [facility] HospitalMean Corpuscular Cvhbyoofjx2043-81-48 05:44:00* Test Item Value Reference Range Interpretation Comments Mean Corpuscular Hemoglobin (test code = 785-6) 29.9 28-32 [facility] HospitalMean Corpuscular Hemoglobin Concent 2019-08-27 05:44:00* Test Item Value Reference Range Interpretation Comments Mean Corpuscular Hemoglobin Concent (test code = 786-4) 30.3 31-35 L [facility] HospitalRed Cell Distribution Okhth5359-27-26 05:44:00* Test Item Value Reference Range Interpretation Comments Red Cell Distribution Width (test code = 02212-2) 17.9 11.7 -14.4 H [facility] HospitalPlatelet Stgca1082-66-68 05:44:00* Test Item Value Reference Range Interpretation Comments Platelet Count (test code = 777-3) 219 140-360 [facility] HospitalNeutrophils (%) (Auto)2019-08-27 05:44:00 * Test Item Value Reference Range Interpretation Comments Neutrophils (%) (Auto) (test code = 10600-0) 70.5 38.7-80.0 [facility] HospitalLymphocytes (%) (Auto)2019-08-27 05:44:00 * Test Item Value Reference Range Interpretation Comments Lymphocytes (%) (Auto) (test code = 736-9) 8.2 18.0-39.1 L [facility] HospitalMonocytes (%) (Auto)2019-08-27 05:44:00* Test Item Value Reference Range Interpretation Comments Monocytes (%) (Auto) (test code = 5905-5) 7.7 4.4-11.3 [facility] HospitalEosinophils (%) (Auto)2019-08-27 05:44:00 * Test Item Value Reference Range Interpretation Comments Eosinophils (%) (Auto) (test code = 713-8) 12.4 0.0-6.0 H [facility] HospitalBasophils (%) (Auto)2019-08-27 05:44:00* Test Item Value Reference Range Interpretation Comments Basophils (%) (Auto) (test code = 706-2) 0.5 0.0-1.0 [facility] HospitalIM GRANULOCYTES %2019-08-27 05:44:00* Test Item Value Reference Range Interpretation Comments IM GRANULOCYTES % (test code = IM GRANULOCYTES %) 0.7 0.0- 1.0 [facility] HospitalNeutrophils # (Auto)2019-08-27 05:44:00* Test Item Value Reference Range Interpretation Comments Neutrophils # (Auto) (test code = 751-8) 10.5 2.1-6.9 H [facility] HospitalLymphocytes # (Auto)2019-08-27 05:44:00* Test Item Value Reference Range Interpretation Comments Lymphocytes # (Auto) (test code = 03905-3) 1.2 1.0-3.2 [facility] HospitalMonocytes # (Auto)2019-08-27 05:44:00* Test Item Value Reference Range Interpretation Comments Monocytes # (Auto) (test code = 742-7) 1.1 0.2-0.8 H [facility] HospitalEosinophils # (Auto)2019-08-27 05:44:00* Test Item Value Reference Range Interpretation Comments Eosinophils # (Auto) (test code = 711-2) 1.8 0.0-0.4 H [facility] HospitalBasophils # (Auto)2019-08-27 05:44:00* Test Item Value Reference Range Interpretation Comments Basophils # (Auto) (test code = 704-7) 0.1 0.0-0.1 [facility] HospitalAbsolute Immature Granulocyte (auto 2019-08-27 05:44:00* Test Item Value Reference Range Interpretation Comments Absolute Immature Granulocyte (auto (carli t code = Absolute Immature Granulocyte (auto) 0.10 0-0.1 [facility] HospitalCHEST SINGLE (PORTABLE)2019-08-26 05:51:00 [place] [address] Patient Name: EDWARD GONSALEZ MR #: [id number] : 1970 Age/Sex: 48/M Req #: [id number] Adm Physician: CHINA DUMONT MD Ordered by: CHINA DUMONT MD Report #: [id number] Location: ICU Room/Bed: ICU [facility] Procedure: [id number] DX /CHEST SINGLE (PORTABLE) Exam Date: Exam [...] 08/26/19552 COPY TO: CHINA DUMONT MD Blood Rpsisam0256-63-90 17:22:00 * Test Item Value Reference Range Interpretation Comments Blood Culture (test code = 28777660) NO GROWTH AFTER 72 HOURS [facility])2019-08-25 10:10:00 [facility] [address] [place] [address] Patient Name: EDWARD GONSALEZ MR #: [id number] : 1970 Age/Sex: 48/M Req #: [id number] Adm Physician: CHINA DUMONT MD Ordered by: CHINA DUMONT MD Report #: [id number] Location: ICU Room/Bed: ICU [facility] Procedure: [id number] DX /CHEST SINGLE (PORTABLE) Exam Date: 08/25/19 [...] CHINA DUMONT MD CHEST SINGLE (PORTABLE)2019-08-24 08:36:00 [place] [address] Patient Name: EDWARD GONSALEZ MR #: [id number] : 1970 Age/Sex: 48/M Req #: [id number] Adm Physician: CHINA DUMONT MD Ordered by: CHINA DUMONT MD Report #: [id number] Location: ICU Room/Bed: ICU 192 Procedure: [id number] DX /CHEST SINGLE (PORTABLE) Exam Date: 08/24/19 [...] COPY TO: HERIBERTO DUMONT MD B-Type Natriuretic Ttgagzl1951-31-85 06:11:00* Test Item Value Reference Range Interpretation Comments B-Type Natriuretic Peptide (test code = 22569-9) 993.5 0-100 H [facility] HospitalProthrombin Nfep5029-89-44 07:55:00* Test Item Value Reference Range Interpretation Comments Prothrombin Time (test code = 5902-2) 14.6 11.9-14.5 H [facility] HospitalProthromb Time International Ratio 2019-08-23 07:55:00* Test Item Value Reference Range Interpretation Comments Prothromb Time International Ratio (test code = 6301-6) 1.07 Oral Anticoagulant Therapy INR Values:1. Low Intensity Therapy 1.5 - 2.02 . Moderate Intensity Therapy 2.0 - 3.03. High Intensity Therapy(1) 2.5 - 3. 54. High Intensity Therapy(2) 3.0 - 4.05. Panic Value INR > 5.0 [facility] HospitalActivated Partial Thromboplast Time 2019-08-23 07:55:00* Test Item Value Reference Range Interpretation Comments Activated Partial Thromboplast Time (test code = 15730-4) 46.3 23.8-35.5 H [facility] HospitalCHEST SINGLE (PORTABLE)2019-08-23 07:25:00 [facility] [address] [place] [address] Patient Name: EDWARD GONSALEZ MR #: [id number] : 1970 Age/Sex: 48/M Req #: [id number] Adm Physician: CHINA DUMONT MD Ordered by: BRIANDA PETIT MD Report #: [id number] Location: ICU Room/Bed: ICU [facility] Procedure: [id number] DX/CH EST SINGLE (PORTABLE) Exam Date: 08/23/19 [...] BRIANDA PETIT MD CHEST SINGLE (PORTABLE)2019-08-21 09:08:00 [place] [address] Patient Name: EDWARD GONSALEZ MR #: [id number] : 1970 Age/Sex: 48/M Req #: [id number] Adm Physician: CHINA DUMONT MD Ordered by: CHINA DUMONT MD Report #: [id number] Location: ICU Room/Bed: ICU [facility] Procedure: [id number] DX /CHEST SINGLE (PORTABLE) Exam Date: 08/21/19 [...] TO: CHINA DUMONT MD Differential Total Cells Ppnkckl0245-12-23 09:32:00* Test Item Value Reference Range Interpretation Comments Differential Total Cells Counted (test code = Roberto tial Total Cells Counted) 100 [facility] HospitalNeutrophils % (Manual)2019-08-20 09:32:00 * Test Item Value Reference Range Interpretation Comments Neutrophils % (Manual) (test code = 90960-9) 76 40-74 H [facility] HospitalLymphocytes % (Manual)2019-08-20 09:32:00 * Test Item Value Reference Range Interpretation Comments Lymphocytes % (Manual) (test code = 737-7) 5 19-48 L [facility] HospitalMonocytes % (Manual)2019-08-20 09:32:00* Test Item Value Reference Range Interpretation Comments Monocytes % (Manual) (test code = 744-3) 14 3.4-9.0 H [facility] HospitalEosinophils % (Manual)2019-08-20 09:32:00 * Test Item Value Reference Range Interpretation Comments Eosinophils % (Manual) (test code = 714-6) 4 0-7 [facility] HospitalMetamyelocytes %2019-08-20 09:32:00* Test Item Value Reference Range Interpretation Comments Metamyelocytes % (test code = 740-1) 1 0-0 H [facility] HospitalPlatelet Zkfurslg9275-05-65 09:32:00* Test Item Value Reference Range Interpretation Comments Platelet Estimate (test code = 44265-4) ADEQUATE [facility] HospitalPlatelet Morphology Tndvfud7572-07-33 09:32:00* Test Item Value Reference Range Interpretation Comments Platelet Morphology Comment (test code = 25245-4) NORMAL [facility] HospitalPolychromasia2020-04-15 09:32:00* Test Item Value Reference Range Interpretation Comments Polychromasia (test code = 69411-4) FEW [facility] HospitalAnisocytosis2020-04-15 09:32:00* Test Item Value Reference Range Interpretation Comments Anisocytosis (test code = 702-1) R [facility] HospitalMacrocytosis2020-04-15 09:32:00* Test Item Value Reference Range Interpretation Comments Macrocytosis (test code = 738-5) SLIGHT [facility] HospitalRed Cell Morphology Fsbokxn1448-69-59 09:32:00* Test Item Value Reference Range Interpretation Comments Red Cell Morphology Comment (test code = 6742-1) ABNORMAL [facility] HospitalCHEST SINGLE (PORTABLE)2019-08-20 08:13:00 [facility] [address] [place] [address] Patient Name: EDWARD GONSALEZ MR #: [id number] : 1970 Age/Sex: 48/M Req #: [id number] Adm Physician: CHINA DUMONT MD Ordered by: CHINA DUMONT MD Report #: [id number] Location: ICU Room/Bed: ICU [facility] Procedure: [id number] DX /CHEST SINGLE (PORTABLE) Exam Date: 08/20/19 [...] CHINA DUMONT MD CHEST SINGLE (PORTABLE)2019-08-19 08:20:00 [place] [address] Patient Name: EDWARD GONSALEZ MR #: [id number] : 1970 Age/Sex: 48/M Req #: [id number] Adm Physician: CHINA DUMONT MD Ordered by: CHINA DUMONT MD Report #: [id number] Location: ICU Room/Bed: ICU 192 Procedure: 3215-4995 DX /CHEST SINGLE (PORTABLE) Exam Date: 08/19/19 [...] CHINA DUMONT MD CHEST SINGLE (PORTABLE)2019-08-18 09:56:00 [place] [address] Patient Name: EDWARD GONSALEZ MR #: [id number] : 1970 Age/Sex: 48/M Req #: [id number] Adm Physician: CHINA DUMONT MD Ordered by: CHINA DUMONT MD Report #: [id number] Location: ICU Room/Bed: ICU 192 Procedure: 7188-7409 DX /CHEST SINGLE (PORTABLE) Exam Date: 08/18/19 [...] CHINA DUMONT MD CHEST SINGLE (PORTABLE)2019-08-18 09:50:00 [place] [address] Patient Name: EDWARD GONSALEZ MR #: [id number] : 1970 Age/Sex: 48/M Req #: [id number] Adm Physician: CHINA DUMONT MD Ordered by: NILSON RUBIO MD Report #: [id number] Location: ICU Room/Bed: ICU [facility] Procedure: 8860-2644 DX /CHEST SINGLE (PORTABLE) Exam Date: 08/17/19 [...] on 08/18/19955 COPY TO: NILSON RUBIO MD Gnwljqpsklavw8899-16-94 07:22:00* Test Item Value Reference Range Interpretation Comments Hypochromasia (test code = 728-6) MODERATE [facility] HospitalTroponin Z2802-87-74 06:51:00* Test Item Value Reference Range Interpretation Comments Troponin I (test code = 99181-9) 0.078 0-0.300 [facility] HospitalCreatine Kinase OY4282-25-55 23:52:00* Test Item Value Reference Range Interpretation Comments Creatine Kinase MB (test code = 01480-5) 1.70 0-5.0 [facility] HospitalCreatine Sbtkzu2046-25-67 23:44:00* Test Item Value Reference Range Interpretation Comments Creatine Kinase (test code = 2157-6) 37 30-200 [facility] HospitalCHEST SINGLE (PORTABLE)2019-08-17 07:21:00 [place] [address] Patient Name: EDWARD GONSALEZ MR #: [id number] : 1970 Age/Sex: 48/M Req #: [id number] Adm Physician: CHINA DUMONT MD Ordered by: CHINA DUMONT MD Report #: [id number] Location: ICU Room/Bed: ICU 192-1 Procedure: 8066-8881 DX /CHEST SINGLE (PORTABLE) Exam Date: 08/17/19 [...] Dictated By: MESSI Bonilla 3 Transcribed By: iCurrent CAMARGO on 08/17/19723 COPY TO: CHINA DUMONT MD Stool Occult Rqulz0162-61-01 07:22:00* Test Item Value Reference Range Interpretation Comments Stool Occult Blood (test code = 2335-8) POSITIVE NEGATIVE H [facility] SINGLE (PORTABLE)2019-08-16 06:42:00 [facility] [address] [place] [address] Patient Name: EDWARD GONSALEZ MR #: [id number] : 1970 Age/Sex: 48/M Req #: [id number] Adm Physician: CHINA DUMONT MD Ordered by: BRIANDA PETIT MD Report #: [id number] Location: ICU Room/Bed: ICU [facility] Procedure: 3099-9877 DX/CH EST SINGLE (PORTABLE) Exam Date: 08/16/19 [...] COPY TO: BRIANDA PETIT MD Hepatitis Be Uemtlthv0407-83-35 12:45:00* Test Item Value Reference Range Interpretation Comments Hepatitis Be Antibody (test code = 20375-6) Negative Negative Performed at: [address] [id number] Chief Engineering Division: Osito Saunders MD, Phone: [phone] [facility] HospitalAmylase Wedav0514-59-31 07:28:00* Test Item Value Reference Range Interpretation Comments Amylase Level (test code = 1798-8) 21 25-125 L [facility] HospitalLipase2020-04-10 07:28:00* Test Item Value Reference Range Interpretation Comments Lipase (test code = 3040-3) < 4 8-78 L [facility] HospitalD-Dimer Quantitative (PE/DVT)2019-08-15 00:50:00* Test Item Value Reference Range Interpretation Comments D-Dimer Quantitative (PE/DVT) (test code = 26894-4) 3.92 0. 00-0.45 H [facility] HospitalCHEST SINGLE (PORTABLE)2019-08-14 16:40:00 [place] [address] Patient Name: EDWARD GONSALEZ MR #: [id number] : 1970 Age/Sex: 48/M Req #: [id number] Adm Physician: CHINA DUMONT MD Ordered by: BRIANDA PETIT MD Report #: [id number] Location: ICU Room/Bed: ICU [facility] Procedure: [id number] DX/CH EST SINGLE (PORTABLE) Exam Date: 08/14/19 [...] BRIANDA PETIT MD Hepatitis B Core Total Ggpykviy0282-47-39 08:55:00* Test Item Value Reference Range Interpretation Comments Hepatitis B Core Total Antibody (test code = 04699-5) Negative Negative [facility] B Surface Vmytwyo7334-88-56 08:55:00* Test Item Value Reference Range Interpretation Comments Hepatitis B Surface Antigen (test code = 5196-1) Negative Negat isaak [facility] HospitalHemetropolitan [facility] hospital B Core IgM Ddpjxqgj3984-40-18 08:55:00* Test Item Value Reference Range Interpretation Comments Hepatitis B Core IgM Antibody (test code = 39389-7) Negative Ne gative Performed at: HD - [facility] [address] [id number] Director: Hari Valentine MD, Phone: [phone] McKinney HospitalIR TEVTDUH6803-85-99 16:35:00 [place] [id number] Patient Name: EDWARD GONSALEZ MR #: [id number] : 1970 Age/Sex: 48/M Req #: [id number] Adm Physician: CHINA DUMONT MD Ordered by: BRIANDA PETIT MD Report #: [id number] Location: ICU Room/Bed: ICU 1921 Procedure: DX/IR [...] sterile dressing was appl ied. Catheter placed: Momspot Catheter size (Yi): 13 Catheter length (cm) : 15 Catheter [...] TO: BRIANDA PETIT MD NON-TUNNELLED CVC CATH KKAMKHK0924-27-45 16:35:00 [place] [address] Patient Name: EDWARD GONSALEZ MR #: [id number] : 1970 Age/Sex: 48/M Req #: [id number] Adm Physician: CHINA DUMONT MD Ordered by: BRIANDA PETIT MD Report #: [id number] Location: ICU Room/Bed: ICU [facility] Procedure: [id number] IR/NO N-TUNNELLED CVC CATH PLACMNT Exam Date: [...] The catheter may be used immedi ately. DC OCEDURE SUMMARY: - Venous access with ultrasound [...] the report as written. Signed by: Heber aMrino MD on 08/13/2019 4:36 PM Dictated By: HEBER MARINO MD Electronically Belen d By: HEBER MARINO MD on 08/13/19 163 Transcribed By: EDNA on 08/13/19 1636 COPY TO: BRIANDA PETIT MD GUIDANCE FOR VASCULAR XRKOX3149-78-44 16:35:00 [place] [address] Patient Name: EDWARD GONSALEZ MR #: [id number] : 1970 Age/Sex: 48/M Req #: [id number] Adm Physician: CHINA DUMONT MD Ordered by: BRIANDA PETIT MD Report #: [id number] Location: ICU Room/Bed: ICU [facility] Procedure: 2077-3325 US/US GUIDANCE FOR VASCULAR ACCES Exam Date: [...] The catheter may be used immedi ately. DC OCEDURE SUMMARY: - Venous access with ultrasound [...] to perform high complexity tests.Specimen sent to [facility] and testing performed by [facility] [address] [place] [address] [phone] Director: Shabbir Moran M.D.CLIA # [id number] [facility] HospitalFolate2020-04-08 04:56:00* Test Item Value Reference Range Interpretation Comments Folate (test code = 2284-8) 11.8 >3.0 A serum folate concentration of less than 3.1 ng/mL isconsidered to represent cl inical deficiency.Performed at: - [facility] [id number] Director: Hari Valentine MD, Phone: [phone] [facility] HospitalCHEST SINGLE (PORTABLE)2019-08-12 19:19:00 [facility] [address] [place] [address] Patient Name: EDWARD GONSALEZ MR #: [id number] : 1970 Age/Sex: 48/M Req #: [id number] Adm Physician: CHINA DUMONT MD Ordered by: NILSON RUBIO MD Report #: [id number] Location: ICU Room/Bed: ICU [facility] Procedure: 2220-6562 DX /CHEST SINGLE (PORTABLE) Exam Date: 08/12/19 Exam Ti me: 1740 REPORT STATUS: Signed E XAMINATION: CHEST SINGLE (PORTABLE) INDICATION: LINE PLACEME NT [id number] COMPARISON: Chest radiograph 08/11/2019 FINDINGS: AP [...] EDNA on 08/12/191924 COPY TO: NILSON RUBIO Zxlrtjvo1576-01-21 11:21:00* Test Item Value Reference Range Interpretation Comments Ferritin (test code = 2276-4) 2494.10 21.81-274.66 H [facility] HospitalIron Xkiwr7857-86-16 10:23:00* Test Item Value Reference Range Interpretation Comments Iron Level (test code = 2498-4) 22 65-175 L [facility] HospitalTransferrin2020-04-07 10:23:00* Test Item Value Reference Range Interpretation Comments Transferrin (test code = 3034-6) < 70 174-364 L [facility] HospitalVitamin B12 Ajevp5869-83-52 10:21:00* Test Item Value Reference Range Interpretation Comments Vitamin B12 Level (test code = 29161-2) 576 213-816 [facility] HospitalPercent Reticulocyte Bpwps5466-33-35 09:51:00* Test Item Value Reference Range Interpretation Comments Percent Reticulocyte Count (test code = 26446-0) 2.2 0.8-2 .2 [facility]-1VIEW (KUB)2019-08-12 01:57:00 [place] [address] Patient Name: EDWARD GONSALEZ MR #: [id number] : 1970 Age/Sex: 48/M Req #: [id number] Adm Physician: CHINA DUMONT MD Ordered by: BRIANDA PETIT MD Report #: [id number] Location: ICU Room/Bed: ICU [facility] Procedure: DX/AB DOMEN-1VIEW (KUB) Exam Date: 08/12/19 [...] By: MESSI AMES MD 7 Transcribed By: DENA on 08/12/19157 COPY TO: BRIANDA ANDUJAR MD CHEST SINGLE (PORTABLE)2019-08-12 01:53:00 [place] [address] Patient Name: EDWARD GONSALEZ MR #: [id number] : 1970 Age/Sex: 48/M Req #: [id number] Adm Physician: CHINA DUMONT MD Ordered by: BRIANDA PETIT MD Report #: [id number] Location: ICU Room/Bed: ICU [facility] Procedure: DX/CH EST SINGLE (PORTABLE) Exam Date: [...] BRIANDA PETIT MD CHEST SINGLE (PORTABLE)2019-08-11 12:00:00 [place] [address] Patient Name: EDWARD GONSALEZ MR #: [id number] : 1970 Age/Sex: 48/M Req #: [id number] Adm Physician: CHINA DUMONT MD Ordered by: BEATRICE SCHMIDT MD Report #: [id number] Location: ICU Room/Bed: ICU [facility] Procedure: [id number] DX/ CHEST SINGLE (PORTABLE) Exam Date: 08/11/19 [...] COPY TO: BEATRICE SCHMIDT MD Vancomycin Level Ydhrpk7928-14-96 09:12:00* Test Item Value Reference Range Interpretation Comments Vancomycin Level Trough (test code = 4092-3) 19.7 5.0-10.0 HH Results repeated and called to NITA KING at 0911 on 08/11/19 by Gee Long . Read back and verified.[facility] HospitalTriglycerides Zpivr2912-04-00 06:45:00* Test Item Value Reference Range Interpretation Comments Triglycerides Level (test code = 2571-8) 269 0-149 H [facility] HospitalCholesterol Vjsak5178-05-01 06:45:00* Test Item Value Reference Range Interpretation Comments Cholesterol Level (test code = 2093-3) 117 0-199 Less than 200 mg/dL Low Dttb147 - 239 mg/dL Borderline Axyx034 m g/dl and greater High Risk [facility] HospitalLDL Xdzaflnzdjv0352-02-79 06:45:00* Test Item Value Reference Range Interpretation Comments LDL Cholesterol (test code = 2089-1) 48 60-130 L [facility] HospitalHDL Kzhpgbdfcpg9280-05-50 06:45:00* Test Item Value Reference Range Interpretation Comments HDL Cholesterol (test code = 2085-9) 15 40-60 L [facility] HospitalCholesterol/HDL Wiuaz3746-27-87 06:45:00 * Test Item Value Reference Range Interpretation Comments Cholesterol/HDL Ratio (test code = 9830-1) 7.8 3.9-4.7 H [facility] HospitalDirect Xhtdbytjd2549-19-83 22:34:00* Test Item Value Reference Range Interpretation Comments Direct Bilirubin (test code = 84506-5) 0.2 0.0-0.5 [facility] HospitalFibrinogen2020-04-05 22:31:00* Test Item Value Reference Range Interpretation Comments Fibrinogen (test code = 3255-7) 454 204462 [facility] HospitalLactic Acid Tymgk8601-98-47 22:30:00* Test Item Value Reference Range Interpretation Comments Lactic Acid Level (test code = Lactic Acid Level) 1.0 0.5- 2.0 [facility] HospitalCHEST XRAY LINE QZTELYIPC4219-68-09 17:23:00 [facility] [address] [place] [address] Patient Name: EDWARD GONSALEZ MR #: [id number] : 1970 Age/Sex: 48/M Req #: [id number] Adm Physician: CHINA DUMONT MD Ordered by: BRIANDA PETIT MD Report #: [id number] Location: ICU Room/Bed: [place] [address] Procedure: [id number] DX/CH EST XRAY LINE PLACEMENT Exam Date: 08/10/19 Exam Robert e: 1700 REPORT STATUS: Signed EX AMINATION: CHEST XRAY LINE PLACEMENT INDICATION: NEW RUE PICC [id number] COMPARISON: 08/09/2019 FINDINGS: AP view TUBES [...] Transcribed By: EDNA on 1725 COPY TO: BRIANDA PETIT MD Urine Glpev9021-67-99 10:00:00* Test Item Value Reference Range Interpretation Comments Urine Color (test code = 5778-6) YELLOW YELLOW [facility] HospitalUrine Eytmkhn1624-48-23 10:00:00* Test Item Value Reference Range Interpretation Comments Urine Clarity (test code = 44307-0) SL CLOUDY CLEAR H [facility] HospitalUrine Specific Qqccepc3282-08-38 10:00:00 * Test Item Value Reference Range Interpretation Comments Urine Specific [place] (test code = 5811-5) 1.030 1.010-1.02 5 H [facility] HospitalUrine dV3838-05-30 10:00:00* Test Item Value Reference Range Interpretation Comments Urine pH (test code = 63738-6) 5 5-7 [facility] HospitalU[facility] Leukocyte Fpcazozj9517-34-14 10:00:00* Test Item Value Reference Range Interpretation Comments Urine Leukocyte Esterase (test code = 5799-2) NEGATIVE NEGATIVE [facility] HospitalUrine Qjuerjp9119-35-78 10:00:00* Test Item Value Reference Range Interpretation Comments Urine Nitrite (test code = 95267-7) NEGATIVE NEGATIVE [facility] HospitalUrine Hjrnoca7216-42-73 10:00:00* Test Item Value Reference Range Interpretation Comments Urine Protein (test code = 5804-0) 1+ NEGATIVE H [facility] HospitalUrine Glucose (UA)2019-08-10 10:00:00* Test Item Value Reference Range Interpretation Comments Urine Glucose (UA) (test code = 2349-9) 1+ NEGATIVE H [facility] HospitalUrine Lcvdaep6068-11-92 10:00:00* Test Item Value Reference Range Interpretation Comments Urine Ketones (test code = 79358-4) NEGATIVE NEGATIVE [facility] HospitalUrine Qspiahvevflk8337-04-11 10:00:00* Test Item Value Reference Range Interpretation Comments Urine Urobilinogen (test code = 58184-2) 0.2 0.2-1 [facility] HospitalUrine Ljxmoqgcq4601-37-73 10:00:00* Test Item Value Reference Range Interpretation Comments Urine Bilirubin (test code = 1978-6) SMALL NEGATIVE [facility] HospitalUrine Fysvw5780-57-30 10:00:00* Test Item Value Reference Range Interpretation Comments Urine Blood (test code = 04807-5) TRACE NEGATIVE H [facility] HospitalUrine CVB4818-79-16 10:00:00* Test Item Value Reference Range Interpretation Comments Urine WBC (test code = 5821-4) 6-10 0-5 H [facility] HospitalUrine SVY7858-98-83 10:00:00* Test Item Value Reference Range Interpretation Comments Urine RBC (test code = 33089-0) 6-10 0-5 H [facility] HospitalUrine Wvfaueyw7043-08-51 10:00:00* Test Item Value Reference Range Interpretation Comments Urine Bacteria (test code = 90933-7) FEW NONE [facility] HospitalUrine Epithelial Dgkor6536-86-46 10:00:00 * Test Item Value Reference Range Interpretation Comments Urine Epithelial Cells (test code = 38933-9) FEW NONE [facility] HospitalUrine Ewjqi2409-75-48 10:00:00* Test Item Value Reference Range Interpretation Comments Urine Mucus (test code = 8247-9) FEW RARE H [facility] HospitalABDOMEN-1VIEW (KUB)2019-08-10 00:08:00 [facility] [address] [place] [address] Patient Name: EDWARD GONSALEZ MR #: [id number] : 1970 Age/Sex: 48/M Req #: [id number] Adm Physician: CHINA DUMONT MD Ordered by: BRIANDA PETIT MD Report #: [id number] Location: ICU Room/Bed: ICU [facility] Procedure: [id number] DX/AB DOMBERNADETET-1VIEW (KUB) Exam Date: 08/09/19 Exam Time: 232 [...] BRIANDA PETIT MD CHEST SINGLE (PORTABLE)2019-08-10 00:06:00 [facility] [address] [place] [address] Patient Name: EDWARD GONSALEZ MR #: [id number] : 1970 Age/Sex: 48/M Req #: [id number] Adm Physician: CHINA DUMONT MD Ordered by: BRIANDA PETIT MD Report #: [id number] Location: ICU Room/Bed: ICU [facility] Procedure: [id number] DX/CH EST SINGLE (PORTABLE) Exam Date: 08/09/19 [...] BRIANDA PETIT MD CHEST (INCL MEDIASTINUM)2019-08-09 15:22:00 [place] [address] Patient Name: EDWARD GONSALEZ MR #: [id number] : 1970 Age/Sex: 48/M Req #: [id number] Adm Physician: CHINA DUMONT MD Ordered by: BRIANDA PETIT MD Report #: [id number] Location: ICU Room/Bed: ICU 192-1 Procedure: [id number] US/US CHEST (INCL MEDIASTINUM) Exam Date: 08/09/19 Exam T rita: 1412 REPORT STATUS: Signed Normal ultrasound images were obtained as patient became unstable. Signed b y: Bhupendra Langford MD on 08/09/2019 3:23 PM Dictated By: BHUPENDRA RUELAS MD 152 Transcri bed By: EDNA on 08/09/19 152 COPY TO: BRIANDA PETIT MD CHEST SINGLE (PORTABLE)2019-08-09 09:55:00 [place] [address] Patient Name: EDWARD GONSALEZ MR #: [id number] : 1970 Age/Sex: 48/M Req #: [id number] Adm Physician: CHINA DUMONT MD Ordered by: BRIANDA PETIT MD Report #: [id number] Location: ICU Room/Bed: ICU 192-1 Procedure: [id number] DX/CH EST SINGLE (PORTABLE) Exam Date: Exam [...] MD 1000 COPY TO: BRIANDA PETIT MD Muzqwfsusjlua6387-99-89 16:44:00* Test Item Value Reference Range Interpretation Comments Procalcitonin (test code = 031856330) 0.83 0.00-0.08 H A procalcitonin (PCT) level [...] <2 ng/mL are obtained.Performed at: - [facility] [address] [id number] Director: Hari Valentine MD, Phone: [phone] [facility] SINGLE (PORTABLE)2019-08-08 15:09:00 [facility] [address] [place], [place] [address] Patient Name: EDWARD GONSALEZ MR #: [id number] : 1970 Age/Sex: 48/M Req #: [id number] Adm Physician: CHINA DUMONT MD Ordered by: CHINA DUMONT MD Report #: [id number] Location: ICU Room/Bed: ICU [facility] Procedure: [id number] DX /CHEST SINGLE (PORTABLE) Exam Date: Exam Time: REPORT STATUS: Signed EXAMINATION: CHEST SINGLE (PORTABLE) INDICATION: Endotracheal tube placement, enter ic tube placement COMPARISON: Chest radiograph of 08/07/2019 FINDIN GS: LINES/TUBES:Endotracheal tube terminates 4.5 cm above the georgi. Left PICC line terminates in the SVC. Enteric tube with tip and side-port in the [facility]. EKG leads overlie the chest. LUNGS:Unchanged bilateral [...] CO PY TO: CHINA DUMONT MD C-Reactive Bwlrbxu0066-96-65 06:17:00* Test Item Value Reference Range Interpretation Comments C-Reactive Protein (test code = 1988-5) 79 0-10 H Performed at: HD - [facility] [address] [id number] Director: Hari Valentine MD, Phone: [phone] [facility] 1 XGVG8313-72-64 18:31:00 [place] [address] Patient Name: EDWARD GONSALEZ MR #: [id number] : 1970 Age/Sex: 48/M Req #: [id number] Adm Physician: CHINA DUMONT MD Ordered by: BRIANDA PETIT MD Report #: [id number] Location: ICU Room/Bed: [place] [address] Procedure: [id number] DX/SH OULDER LEFT 1 VIEW Exam Date: [...] Transcribed By: EDNA prieto 08/07/191831 COPY TO: RBIANDA PETIT MD ABDOMEN-1VIEW (KUB) 2019-08-07 03:00:00 [place] [address] Patient Name: EDWARD GONSALEZ MR #: [id number] : 1970 Age/Sex: 48/M Req #: [id number] Adm Physician: CHINA DUMONT MD Ordered by: CHINA DUMONT MD Report #: [id number] Location: ICU Room/Bed: ICU [facility] Procedure: 1154-4230 DX /ABDOMEN-1VIEW (KUB) Exam Date: Exam Time: [...] TO: CHINA DUMONT MD CHEST XRAY LINE DEBKEZTTD4876-18-50 02:37:00 [place] [address] Patient Name: EDWARD GONSALEZ MR #: [id number] : 1970 Age/Sex: 48/M Req #: [id number] Adm Physician: CHINA DUMONT MD Ordered by: BRIANDA PETIT MD Report #: [id number] Location: ICU Room/Bed: ICU [facility] Procedure: [id number] DX/CH EST XRAY LINE PLACEMENT Exam Date: [...] Signed By: DAYSI PITTMAN MD on 08/07/19 4017 Transcribed By: EDNA prieto 08/07/19 0240 COPY TO: BRIANDA PETIT MD Urine Hyaline Casts 2019-08-07 02:31:00* Test Item Value Reference Range Interpretation Comments Urine Hyaline Casts (test code = 37476-5) 6-10 0-1 [facility] Granular Knuts3903-43-66 02:31:00* Test Item Value Reference Range Interpretation Comments Urine Fine Granular Casts (test code = 95295-5) 1-5 >0 H [facility] Coarse Granular Pvrln0410-80-34 02:31:00* Test Item Value Reference Range Interpretation Comments Urine Coarse Granular Casts (test code = 77094-6) 1-5 >0 [facility]2019-08-06 11:31:00 [facility] [address] [place] [address] Patient Name: EDWARD GONSALEZ MR #: [id number] : 1970 Age/Sex: 48/M Req #: [id number] Adm Physician: CHINA DUMONT MD Ordered by: BRIANDA PETIT MD Report #: [id number] Location: ICU Room/Bed: ICU 192 Procedure: [id number] DX/CH EST SINGLE (PORTABLE) Exam Date: 08/06/19 [...] BRIANDA PETIT MD CHEST SINGLE (PORTABLE)2019-08-05 14:31:00 [place] [address] Patient Name: EDWARD GONSALEZ MR #: [id number] : 1970 Age/Sex: 48/M Req #: [id number] Adm Physician: CHINA DUMONT MD Ordered by: BRIANDA PETIT MD Report #: [id number] Location: ICU Room/Bed: ICU [facility] Procedure: [id number] DX/CH EST SINGLE (PORTABLE) Exam Date: 08/05/19 Exam Time: 1300 REPORT STATUS: Signed EXAM INATION: CHEST SINGLE (PORTABLE) INDICATION: Pneumonia COMPARISON : Multiple prior chest radiographs most recently 07/08/2019 FINDINGS: LINES/TUBES:Endotracheal tube terminates 4 cm above the georgi. Enteric tube projects the diaphragm out of the uwprd-du-vpou. Right PICC line terminates in the superior [...] BRIANDA PETIT MD CHEST SINGLE (PORTABLE)2019-08-04 11:50:00 [place] [address] Patient Name: EDWARD GONSALEZ MR #: [id number] : 1970 Age/Sex: 48/M Req #: [id number] Adm Physician: CHINA DUMONT MD Ordered by: BEATRICE SCHMIDT MD Report #: [id number] Location: ICU Room/Bed: ICU [facility] Procedure: 2697-1028 DX/ CHEST SINGLE (PORTABLE) Exam Date: 08/04/19 Exam Robert e: 1102 REPORT STATUS: Signed EX AMINATION: [...] BEATRICE SCHMIDT MD CHEST SINGLE (PORTABLE)2019-08-03 23:33:00 [place] [address] Patient Name: EDWARD GONSALEZ MR #: [id number] : 1970 Age/Sex: 48/M Req #: [id number] Adm Physician: CHINA DUMONT MD Ordered by: BEATRICE SCHMIDT MD Report #: [id number] Location: ICU Room/Bed: ICU [facility] Procedure: [id number] DX/ CHEST SINGLE (PORTABLE) Exam Date: 08/03/19 [...] the patient's head is in neutral position. Watts position of endotracheal tube tip above the [...] BEATRICE SCHMIDT MD CHEST SINGLE (PORTABLE)2019-08-03 21:44:00 [place] [address] Patient Name: EDWARD GONSALEZ MR #: [id number] : 1970 Age/Sex: 48/M Req #: [id number] Adm Physician: CHINA DUMONT MD Ordered by: BEATRICE SCHMIDT MD Report #: [id number] Location: ICU Room/Bed: ICU 1921 Procedure: [id number] DX/ CHEST SINGLE (PORTABLE) Exam Date: 08/03/19 [...] DO on 08/02 9:55 PM Dictated By: RBUNO JUNIOR DO 54 Transcribed By: EDNA on 08/03/192154 COPY TO: BEATRICE SCHMIDT MD Blood Lqweglp4484-11-66 08:59:00* Test Item Value Reference Range Interpretation Comments Blood Culture (test code = 600-7) No Result Data Provided [facility] CVTDXERGL7688-63-39 21:28:00 [facility] [address] [place] [address] Patient Name: EDWARD GONSALEZ MR #: [id number] : 1970 Age/Sex: 48/M Req #: [id number] Adm Physician: CHINA DUMONT MD Ordered by: BRIANDA PETIT MD Report #: [id number] Location: ICU Room/Bed: ICU 192 Procedure: 0912-8058 DX/CH EST XRAY LINE PLACEMENT Exam Date: [...] code = 749-2) 1 0-0 H [facility] SINGLE (PORTABLE)2019-07-29 10:20:00 [place] [address] Patient Name: EDWARD GONSALEZ MR #: [id number] : 1970 Age/Sex: 48/M Req #: [id number] Adm Physician: CHINA DUMONT MD Ordered by: BRIANDA PETIT MD Report #: [id number] Location: ICU Room/Bed: ICU [facility] Procedure: 7725-7335 DX/ EST SINGLE (PORTABLE) Exam Date: Exam [...] PETIT MD CHEST SINGLE (PORTABLE) 2019-07-28 08:31:00 [place] [address] Patient Name: EDWARD GONSALEZ MR #: [id number] : 1970 Age/Sex: 48/M Req #: [id number] Adm Physician: CHINA DUMONT MD Ordered by: BRIANDA PETIT MD Report #: [id number] Location: ICU Room/Bed: ICU [facility] Procedure: 6708-0874 DX/CH EST SINGLE (PORTABLE) Exam Date: 07/28/19 [...] BRIANDA PETIT MD CHEST SINGLE (PORTABLE)2019-07-27 09:19:00 [place] [address] [place] [address] Patient Name: EDWARD GONSALEZ MR #: [id number] : 1970 Age/Sex: 48/M Req #: [id number] Adm Physician: CHINA DUMONT MD Ordered by: BRIANDA PETIT MD Report #: [id number] Location: ICU Room/Bed: ICU [facility] Procedure: 7867-5820 DX/CH EST SINGLE (PORTABLE) Exam Date: 07/27/19 [...] BRIANDA PETIT MD CHEST SINGLE (PORTABLE)2019-07-26 09:18:00 [place] [id number] Patient Name: EDWARD GONSALEZ MR #: [id number] : 1970 Age/Sex: 48/M Req #: [id number] Adm Physician: CHINA DUMONT MD Ordered by: BRIANDA PETIT MD Report #: [id number] Location: ICU Room/Bed: ICU [facility] Procedure: 1028-2704 DX/CH EST SINGLE (PORTABLE) Exam Date: 07/26/19 [...] nscribed By: EDNA on 07/26/19919 COPY TO: BRAINDA PETIT MD Toxic Ofezkshjoql3177-85-79 08:13:00* Test Item Value Reference Range Interpretation Comments Toxic Granulation (test code = 803-7) SLIGHT [facility] SINGLE (PORTABLE)2019-07-25 09:03:00 [facility] [address] [place] [address] Patient Name: EDWARD GONSALEZ MR #: [id number] : 1970 Age/Sex: 48/M Req #: [id number] Adm Physician: CHINA DUMONT MD Ordered by: BRIANDA PETIT MD Report #: [id number] Location: ICU Room/Bed: ICU [facility] Procedure: 1680-5789 DX/CH EST SINGLE (PORTABLE) Exam Date: 07/25/19 [...] DNA (PCR)) NEGATIVE NEGATIVE Test performed at [address] [place], [place] [address]Influenza Type A (RT-PCR)2019-07-25 05:35:00* Test Item Value Reference Range Interpretation Comments Influenza Type A (RT-PCR) (test code = 487157427) NEGATIVE NEGA TIVE Test performed at [address] [place], [place] [address]Mycoplasma pneumoniae (PCR)2019-07-25 05:35:00* Test Item Value Reference Range Interpretation Comments Mycoplasma pneumoniae (PCR) (test code = Mycoplasma pneumoni ae (PCR)) NEGATIVE NEGATIVE [facility] B ([facility]-PCR)2019-07-25 05:35:00* Test Item Value Reference Range Interpretation Comments Influenza Type B (RT-PCR) (test code = 909792056) NEGATIVE NEGA TIVE Test performed at [address]piratory Syncytial Virus (PCR) 2019-07-25 05:35:00* Test Item Value Reference Range Interpretation Comments Respiratory Syncytial Virus (PCR) (test code = 609303033) NEGATIVE NEGATIVE Test performed at [address]Bordetella pertussis DNA (PCR) 2019-07-25 05:35:00* Test Item Value Reference Range Interpretation Comments Bordetella pertussis DNA (PCR) (test code = 069240295) NEGATIVE NEGATIVE Test performed at [address]Parainfluenza Type 1 (PCR)2019-07-25 05:35:00* Test Item Value Reference Range Interpretation Comments Parainfluenza Type 1 (PCR) (test code = 049384125) NEGATIVE NEG ATIVE Test performed at [address] [facility] 2 (PCR)2019-07-25 05:35:00* Test Item Value Reference Range Interpretation Comments Parainfluenza Type 2 (PCR) (test code = 821658848) NEGATIVE NEG ATIVE Test performed at [address] [place], [place] [address]Parainfluenza Type 3 (PCR)2019-07-25 05:35:00* Test Item Value Reference Range Interpretation Comments Parainfluenza Type 3 (PCR) (test code = 213214994) NEGATIVE NEG ATIVE Test performed at [address] [place], [place] [address]Parainfluenza Type 4 (PCR)2019-07-25 05:35:00* Test Item Value Reference Range Interpretation Comments Parainfluenza Type 4 (PCR) (test code = Parainfluenza Type 4 (PCR)) NEGATIVE NEGATIVE Test performed at [address] [place], [place] [address]Rhinovirus (PCR)2019-07-25 05:35:00* Test Item Value Reference Range Interpretation Comments Rhinovirus (PCR) (test code = 708492167) NEGATIVE NEGATIVE Test performed at [address] [place], [place] [address]Human Metapneumovirus (PCR)2019-07-25 05:35:00* Test Item Value Reference Range Interpretation Comments Human Metapneumovirus (PCR) (test code = 045672805) NEGATIVE NE GATIVE Test performed at [address] [place], [place] [address]Adenovirus (PCR)2019-07-25 05:35:00* Test Item Value Reference Range Interpretation Comments Adenovirus (PCR) (test code = 439296957) NEGATIVE NEGATIVE Test performed at [address] [place], [place] [address]Coronavirus Type HKU1 (PCR)2019-07-25 05:35:00* Test Item Value Reference Range Interpretation Comments Coronavirus Type HKU1 (PCR) (test code = Coronavirus Type HK U1 (PCR)) NEGATIVE NEGATIVE Test performed at [address]onavirus Type NL63 (PCR)2019-07-25 05:35:00* Test Item Value Reference Range Interpretation Comments Coronavirus Type NL63 (PCR) (test code = Coronavirus Type NL 63 (PCR)) NEGATIVE NEGATIVE Test performed at [address]onavirus Type OC43 (PCR)2019-07-25 05:35:00* Test Item Value Reference Range Interpretation Comments Coronavirus Type OC43 (PCR) (test code = Coronavirus Type OC 43 (PCR)) NEGATIVE NEGATIVE Test performed at [address]onavirus Type 229E (PCR)2019-07-25 05:35:00* Test Item Value Reference Range Interpretation Comments Coronavirus Type 229E (PCR) (test code = Coronavirus Type 22 9E (PCR)) NEGATIVE NEGATIVE Test performed at [address]Urine Uric Acid Mldtedre8641-43-13 14:58:00* Test Item Value Reference Range Interpretation Comments Urine Uric Acid Crystals (test code = 5817-2) FEW [facility] Amorphous Ohefuygv8055-59-10 14:58:00* Test Item Value Reference Range Interpretation Comments Urine Amorphous Sediment (test code = 8246-1) RARE [facility] PasoAB[facility] (KUB)2019-07-24 14:33:00 [place] [address] Patient Name: EDWARD GONSALEZ MR #: [id number] : 1970 Age/Sex: 48/M Req #: [id number] Adm Physician: CHINA DUMONT MD Ordered by: BRIANDA PETIT MD Report #: [id number] Location: ICU Room/Bed: ICU 192-1 Procedure: 8290-3823 DX/AB DOMBERNADETTE-1VIEW (KUB) Exam Date: 07/24/19 Exam [...] 1434 COPY TO: BRIANDA PETIT MD Free Uemfiiobu3057-02-25 14:28:00* Test Item Value Reference Range Interpretation Comments Free Thyroxine (test code = 3024-7) 1.06 0.8-1.8 [facility] Hospital[facility]yroid Stimulating Hormone (TSH) 2019-07-24 14:28:00* Test Item Value Reference Range Interpretation Comments Thyroid Stimulating Hormone (TSH) (test code = 77056-0) 0.170 0.350-4.940 L [facility] HospitalHemoglobin A1c Rrpsegh5257-80-06 14:06:00 * Test Item Value Reference Range Interpretation Comments Hemoglobin A1c Percent (test code = Hemoglobin A1c Percent) 14.9 4.0-7.0 H [facility] HospitalABDOMEN-1VIEW (KUB)2019-07-24 13:01:00 [place] [address] Patient Name: EDWARD GONSALEZ MR #: [id number] : 1970 Age/Sex: 48/M Req #: [id number] Adm Physician: CHINA DUMONT MD Ordered by: BRIANDA PETIT MD Report #: [id number] Location: ICU Room/Bed: ICU 192-1 Procedure: 1962-7502 DX/AB CHEN (CELESTINAB) Exam Date: 07/24/19 Exam [...] TO: BRIANDA ANDUJAR MD CHEST XRAY LINE RDGTJVKIL8588-29-53 22:33:00 [place] [address] Patient Name: EDWARD GONSALEZ MR #: [id number] : 1970 Age/Sex: 48/M Req #: [id number] Adm Physician: CHINA DUMONT MD Ordered by: GAEL NEVAREZ MD Report #: [id number] Location: ERHOLD Room/Bed: [facility] Procedure: 0318-0 051 DX/CHEST XRAY LINE PLACEMENT [...] 07/23/192237 COPY TO: GAEL NGUYEN MD Reactive Dqzsbatuykk5696-23-73 18:24:00* Test Item Value Reference Range Interpretation Comments Reactive Lymphocytes (test code = 41534-7) 4 [facility] CHEST EW1054-01-63 17:45:00 [place] [address] Patient Name: EDWARD GONSALEZ MR #: [id number] : 1970 Age/Sex: 48/M Req #: [id number] Adm Physician: Ordered by: KHUSHBOO LOPEZ MD Report #: [id number] Location: ER Room/Bed: Procedure: [id number] CT/CT CHEST WO Exam Date: 07/23/19 Exam Time: 1710 REPORT STATUS: Signed EXAM: CT Chest W ITHOUT intravenous contrast 07/23/2019 3:37 PM INDICATION: Shortness of breath , cough COMPARISON: Chest radiograph of earlier the same day, chest radiograph s of 07/22/2019 and 07/16/2019 TECHNIQUE: Chest was scanned utilizing a [employer] Rethink Roboticstector helical scanner from the lung apex through [...] KHUSHBOO LOPEZ MD CHEST SINGLE (PORTABLE)2019-07-23 16:43:00 [place] [address] Patient Name: EDWARD GONSALEZ MR #: [id number] : 1970 Age/Sex: 48/M Req #: [id number] Adm Physician: Ordered by: KHUSHBOO LOPEZ MD Report #: [id number] Location: ER Room/Bed: Procedure: 0246-9350 DX/CH EST SINGLE (PORTABLE) Exam Date: 07/23/19 [...] COPY TO : KHUSHBOO LOPEZ MD Urine ZVJ2997-92-01 13:35:00* Test Item Value Reference Range Interpretation Comments Urine WBC (test code = 5821-4) 0-5 0-5 [facility] JMA6078-62-87 13:35:00* Test Item Value Reference Range Interpretation Comments Urine RBC (test code = 14812-6) 0-5 0-5 [facility] Eiojgkgh7111-69-91 13:35:00* Test Item Value Reference Range Interpretation Comments Urine Bacteria (test code = 77041-4) NONE NONE [facility] Epithelial Ktcwy6454-86-36 13:35:00 * Test Item Value Reference Range Interpretation Comments Urine Epithelial Cells (test code = 57744-6) NONE NONE [facility] Pjwve5632-86-53 13:26:00* Test Item Value Reference Range Interpretation Comments Urine Color (test code = 5778-6) YELLOW YELLOW [facility] Ersgrct4122-23-16 13:26:00* Test Item Value Reference Range Interpretation Comments Urine Clarity (test code = 22586-0) CLEAR CLEAR [facility] Specific Iyiurdd9044-14-96 13:26:00 * Test Item Value Reference Range Interpretation Comments Urine Specific [place] (test code = 5811-5) 1.015 1.010-1.02 5 [facility] fN2437-02-83 13:26:00* Test Item Value Reference Range Interpretation Comments Urine pH (test code = 34636-0) 5 5-7 [facility] Leukocyte Kvgzvslw6144-74-32 13:26:00* Test Item Value Reference Range Interpretation Comments Urine Leukocyte Esterase (test code = 5799-2) NEGATIVE NEGATIVE [facility] Djzabdw7385-21-93 13:26:00* Test Item Value Reference Range Interpretation Comments Urine Nitrite (test code = 53505-5) NEGATIVE NEGATIVE [facility] Ldqozrf1646-72-17 13:26:00* Test Item Value Reference Range Interpretation Comments Urine Protein (test code = 5804-0) NEGATIVE NEGATIVE [facility] Hospital[facility] Glucose (UA)2019-07-22 13:26:00* Test Item Value Reference Range Interpretation Comments Urine Glucose (UA) (test code = 2349-9) 2+ NEGATIVE H [facility] Tljypuu5478-35-39 13:26:00* Test Item Value Reference Range Interpretation Comments Urine Ketones (test code = 01391-8) 3+ NEGATIVE H [facility] Hospital[facility] Opiates Dgicfi7980-90-88 13:26:00* Test Item Value Reference Range Interpretation Comments Urine Opiates Screen (test code = 81033-2) NEGATIVE NEGATIVE ALL TESTS PERFORMED MANUALLY ON AngioSlide TOX/SEE TESTMethodist McKinney HospitalUrine Barbiturates Pcaqhd2865-64-64 13:26:00* Test Item Value Reference Range Interpretation Comments Urine Barbiturates Screen (test code = 428138462) NEGATIVE NEGA TIVE [facility] Phencyclidine Clohzu2380-39-80 13:26:00* Test Item Value Reference Range Interpretation Comments Urine Phencyclidine Screen (test code = 21362-4) NEGATIVE NEGAT ISAAK [facility] HospitalU[facility] Amphetamines Dbkpuj8304-76-96 13:26:00* Test Item Value Reference Range Interpretation Comments Urine Amphetamines Screen (test code = 97206-9) NEGATIVE NEGATI VE [facility] Hospital[facility] Methamphetamines Ngvowx9020-36-89 13:26:00* Test Item Value Reference Range Interpretation Comments Urine Methamphetamines Screen (test code = Urine Metha mphetamines Screen) NEGATIVE NEGATIVE [facility] Hospital[facility] Benzodiazepines Ctidpi4514-94-80 13:26:00* Test Item Value Reference Range Interpretation Comments Urine Benzodiazepines Screen (test code = 01545-9) NEGATIVE NEG ATIVE [facility] Cocaine Szokkj8763-83-24 13:26:00* Test Item Value Reference Range Interpretation Comments Urine Cocaine Screen (test code = 3398-5) NEGATIVE NEGATIVE [facility] Cannabinoids Jkrrqk5596-87-40 13:26:00* Test Item Value Reference Range Interpretation Comments Urine Cannabinoids Screen (test code = 87187-6) NEGATIVE NEGATI VE THESE RESULTS ARE FOR MEDICAL TREATMENT ONLYTHIS REPORT CONTAINS UNCONFIR MED SCREENING RESULTS*POSITIVE RESULTS WILL BE CONFIRMED BY REFERENCE LAB UPON R EQUEST CUT-OFFDRUG CLASS CONCENTRATION ng/mLAmphetamines 1000Methamphetamines 1000Cocaine 300Opiate 300Phencyc lidine 25Cannabinoid 50Barbiturates 300Benzodiazepine 300Methadone 300[facility] HospitalU[facility] Methadone Sfxzdi4460-91-94 13:26:00* Test Item Value Reference Range Interpretation Comments Urine Methadone Screen (test code = 17028-8) NEGATIVE NEGATIVE THESE RESULTS ARE FOR MEDICAL TREATMENT ONLYTHIS REPORT CONTAINS UNCONFIR MED SCREENING RESULTS*POSITIVE RESULTS WILL BE CONFIRMED BY REFERENCE LAB UPON R EQUEST CUT-OFFDRUG CLASS CONCENTRATION ng/mLAmphetamines 1000Methamphetamines 1000Cocaine Metabolite 300Opiate 300Phencyc lidine 25Cannabinoid 50Barbiturates 300Benzodiazepine 300Methadone 300[facility] HospitalU[facility] Wrypnlgeanqo1720-30-56 13:26:00* Test Item Value Reference Range Interpretation Comments Urine Urobilinogen (test code = 99792-8) 0.2 0.2-1 [facility] Dcfzxbghi5093-81-99 13:26:00* Test Item Value Reference Range Interpretation Comments Urine Bilirubin (test code = 1978-6) NEGATIVE NEGATIVE [facility] Rwyvz9419-53-29 13:26:00* Test Item Value Reference Range Interpretation Comments Urine Blood (test code = 86036-7) NEGATIVE NEGATIVE [facility] Opiates Torjvh4521-32-88 13:26:00* Test Item Value Reference Range Interpretation Comments Urine Opiates Screen (test code = 23068-6) NEGATIVE NEGATIVE ALL TESTS PERFORMED MANUALLY ON AngioSlide TOX/SEE TESTMethod[facility] HospitalUrine Barbiturates Nrxpid6327-30-77 13:26:00* Test Item Value Reference Range Interpretation Comments Urine Barbiturates Screen (test code = 329840799) NEGATIVE NEGA TIVE [facility] Phencyclidine Wgntuu5236-91-32 13:26:00* Test Item Value Reference Range Interpretation Comments Urine Phencyclidine Screen (test code = 47964-6) NEGATIVE NEGAT ISAAK [facility] Hospital[facility] Amphetamines Nssmpk7804-23-54 13:26:00* Test Item Value Reference Range Interpretation Comments Urine Amphetamines Screen (test code = 28468-5) NEGATIVE NEGATI VE [facility] Hospital[facility] Methamphetamines Xdnzyr2977-94-81 13:26:00* Test Item Value Reference Range Interpretation Comments Urine Methamphetamines Screen (test code = Urine Metha mphetamines Screen) NEGATIVE NEGATIVE [facility] Benzodiazepines Vqbjrl1877-04-45 13:26:00* Test Item Value Reference Range Interpretation Comments Urine Benzodiazepines Screen (test code = 66456-2) NEGATIVE NEG ATIVE [facility] Cocaine Ocsvyi9157-43-38 13:26:00* Test Item Value Reference Range Interpretation Comments Urine Cocaine Screen (test code = 3398-5) NEGATIVE NEGATIVE [facility] Cannabinoids Knzjtp4533-56-64 13:26:00* Test Item Value Reference Range Interpretation Comments Urine Cannabinoids Screen (test code = 72503-9) NEGATIVE NEGATI VE THESE RESULTS ARE FOR MEDICAL TREATMENT ONLYTHIS REPORT CONTAINS UNCONFIR MED SCREENING RESULTS*POSITIVE RESULTS WILL BE CONFIRMED BY REFERENCE LAB UPON R EQUEST CUT-OFFDRUG CLASS CONCENTRATION ng/mLAmphetamines 1000Methamphetamines 1000Cocaine 300Opiate 300Phencyc lidine 25Cannabinoid 50Barbiturates 300Benzodiazepine 300Methadone 300[facility] Hospital[facility] Methadone Grgqgr1381-35-84 13:26:00* Test Item Value Reference Range Interpretation Comments Urine Methadone Screen (test code = 56817-9) NEGATIVE NEGATIVE THESE RESULTS ARE FOR MEDICAL TREATMENT ONLYTHIS REPORT CONTAINS UNCONFIR MED SCREENING RESULTS*POSITIVE RESULTS WILL BE CONFIRMED BY REFERENCE LAB UPON R EQUEST CUT-OFFDRUG CLASS CONCENTRATION ng/mLAmphetamines 1000Methamphetamines 1000Cocaine Metabolite 300Opiate 300Phencyc lidine 25Cannabinoid 50Barbiturates 300Benzodiazepine 300Methadone 300[facility] HospitalCHE[facility] SINGLE (PORTABLE)2019-07-22 12:47:00 [facility] [address] [place] [address] Patient Name: EDWARD GONSALEZ MR #: [id number] : 1970 Age/Sex: 48/M Req #: [id number] Adm Physician: Ordered by: BALDEMAR MELGAR MANAGER ELIGIBILITY Report #: [id number] Location: ER Room/Bed: Procedure: 9807-0363 DX/ CHEST SINGLE (PORTABLE) Exam Date: 07/22/19 [...] 1250 COPY TO: BALDEMAR MELGAR NP Sodium Hvxuu2922-55-74 12:31:00* Test Item Value Reference Range Interpretation Comments Sodium Level (test code = 2951-2) 140 136-145 [facility] Hospital[facility] Nwgbl8848-87-08 12:31:00* Test Item Value Reference Range Interpretation Comments Potassium Level (test code = 2823-3) 3.7 3.5-5.1 [facility] HospitalChloride Skiay8047-77-56 12:31:00* Test Item Value Reference Range Interpretation Comments Chloride Level (test code = 2075-0) 93 98-107 L [facility] HospitalCarbon Dioxide Xrdgt3531-61-56 12:31:00* Test Item Value Reference Range Interpretation Comments Carbon Dioxide Level (test code = 2028-9) 23 22-29 [facility] HospitalAnion Ugk9278-21-14 12:31:00* Test Item Value Reference Range Interpretation Comments Anion Gap (test code = 85462-1) 27.7 8-16 [facility] HospitalBlood Urea Xslyothw7087-56-95 12:31:00* Test Item Value Reference Range Interpretation Comments Blood Urea Nitrogen (test code = 3094-0) 39 7-26 [facility] HospitalCreatinine2020-03-17 12:31:00* Test Item Value Reference Range Interpretation Comments Creatinine (test code = 2160-0) 1.67 0.72-1.25 H [facility] HospitalBUN/Creatinine Yvrkn7519-40-82 12:31:00* Test Item Value Reference Range Interpretation Comments BUN/Creatinine Ratio (test code = 3097-3) 23 6-25 [facility] HospitalEstimat Glomerular Filtration Rate 2019-07-22 12:31:00* Test Item Value Reference Range Interpretation Comments Estimat Glomerular Filtration Rate (test code = 930969971) 44 >60 L Ranges were taken from the National Kidney Disease Education Program and the [facility] literature.Reference ranges:60 or greater: Snrmdm97-99 ( for 3 consecutive months): Chronic kidney disease 15 or less: Kidney failureMethodist McKinney HospitalGlucose Thlcv1522-33-08 12:31:00* Test Item Value Reference Range Interpretation Comments Glucose Level (test code = HDL3834) 391 74-118 H [facility] HospitalCalcium Juwij2558-96-61 12:31:00* Test Item Value Reference Range Interpretation Comments Calcium Level (test code = 68741-6) 10.2 8.4-10.2 [facility] HospitalTotal Ttydcialt9252-29-30 12:31:00* Test Item Value Reference Range Interpretation Comments Total Bilirubin (test code = 1975-2) 0.6 0.2-1.2 [facility] HospitalAspartate Amino Transf (AST/SGOT) 2019-07-22 12:31:00* Test Item Value Reference Range Interpretation Comments Aspartate Amino Transf (AST/SGOT) (test code = Aspartate Amino Transf (AST/SGOT)) 33 5-34 [facility] HospitalAlanine Aminotransferase (ALT/SGPT) 2019-07-22 12:31:00* Test Item Value Reference Range Interpretation Comments Alanine Aminotransferase (ALT/SGPT) (test code = 1742-6) 40 0-55 [facility] HospitalTotal Boyhjed8659-99-76 12:31:00* Test Item Value Reference Range Interpretation Comments Total Protein (test code = 2885-2) 8.8 6.5-8.1 [facility] HospitalAlbumin2020-03-17 12:31:00* Test Item Value Reference Range Interpretation Comments Albumin (test code = 1751-7) 3.7 3.5-5.0 [facility] HospitalGlobulin2020-03-17 12:31:00* Test Item Value Reference Range Interpretation Comments Globulin (test code = 00139-0) 5.1 2.3-3.5 H [facility] HospitalAlbumin/Globulin Inlys4491-79-95 12:31:00 * Test Item Value Reference Range Interpretation Comments Albumin/Globulin Ratio (test code = 1759-0) 0.7 0.8-2.0 L [facility] HospitalAlkaline Oxvqspxmeok7483-55-26 12:31:00* Test Item Value Reference Range Interpretation Comments Alkaline Phosphatase (test code = 6768-6) 108 40-150 [facility] HospitalInfluenza Virus Types A,B Antigen 2019-07-22 12:12:00* Test Item Value Reference Range Interpretation Comments Influenza Virus Types A,B Antigen (test code = 11477-8) NEGATIVE NEGATIVE [facility] HospitalInfluenza Virus Types A,B Antigen 2019-07-22 12:12:00* Test Item Value Reference Range Interpretation Comments Influenza Virus Types A,B Antigen (test code = 63970-4) NEGATIVE NEGATIVE [facility] HospitalGroup A Streptococcus Wrzhvy3795-49-80 12:00:00* Test Item Value Reference Range Interpretation Comments Group A Streptococcus Screen (test code = 16205-3) NEGATIVE NEG ATIVE [facility] HospitalGroup A Streptococcus Unmnij8251-00-81 12:00:00* Test Item Value Reference Range Interpretation Comments Group A Streptococcus Screen (test code = 76995-2) NEGATIVE NEG ATIVE [facility] HospitalWhite Blood Irncj7747-63-16 11:55:00* Test Item Value Reference Range Interpretation Comments White Blood Count (test code = 6690-2) 6.73 4.8-10.8 [facility] HospitalRed Blood Cmkbm4426-68-58 11:55:00* Test Item Value Reference Range Interpretation Comments Red Blood Count (test code = 789-8) 5.87 4.3-5.7 H [facility] HospitalHemoglobin2020-03-17 11:55:00* Test Item Value Reference Range Interpretation Comments Hemoglobin (test code = 98115-5) 18.3 14.0-18.0 H [facility] HospitalHematocrit2020-03-17 11:55:00* Test Item Value Reference Range Interpretation Comments Hematocrit (test code = 4544-3) 52.2 38.2-49.6 H [facility] HospitalMean Corpuscular Wazpjp5938-25-61 11:55:00* Test Item Value Reference Range Interpretation Comments Mean Corpuscular Volume (test code = 787-2) 88.9 81-99 [facility] HospitalMean Corpuscular Bxxohnpepj9218-45-18 11:55:00* Test Item Value Reference Range Interpretation Comments Mean Corpuscular Hemoglobin (test code = 785-6) 31.2 28-32 [facility] HospitalMean Corpuscular Hemoglobin Concent 2019-07-22 11:55:00* Test Item Value Reference Range Interpretation Comments Mean Corpuscular Hemoglobin Concent (test code = 786-4) 35.1 31-35 H [facility] HospitalRed Cell Distribution Aozge4980-22-43 11:55:00* Test Item Value Reference Range Interpretation Comments Red Cell Distribution Width (test code = 15292-1) 11.7 11.7 -14.4 [facility] HospitalPlatelet Lfisv4952-84-49 11:55:00* Test Item Value Reference Range Interpretation Comments Platelet Count (test code = 777-3) 175 140-360 [facility] HospitalNeutrophils (%) (Auto)2019-07-22 11:55:00 * Test Item Value Reference Range Interpretation Comments Neutrophils (%) (Auto) (test code = 08509-9) 84.4 38.7-80.0 H [facility] HospitalLymphocytes (%) (Auto)2019-07-22 11:55:00 * Test Item Value Reference Range Interpretation Comments Lymphocytes (%) (Auto) (test code = 736-9) 10.0 18.0-39.1 L [facility] HospitalMonocytes (%) (Auto)2019-07-22 11:55:00* Test Item Value Reference Range Interpretation Comments Monocytes (%) (Auto) (test code = 5905-5) 3.3 4.4-11.3 L [facility] HospitalEosinophils (%) (Auto)2019-07-22 11:55:00 * Test Item Value Reference Range Interpretation Comments Eosinophils (%) (Auto) (test code = 713-8) 1.9 0.0-6.0 [facility] HospitalBasophils (%) (Auto)2019-07-22 11:55:00* Test Item Value Reference Range Interpretation Comments Basophils (%) (Auto) (test code = 706-2) 0.1 0.0-1.0 [facility] HospitalIM GRANULOCYTES %2019-07-22 11:55:00* Test Item Value Reference Range Interpretation Comments IM GRANULOCYTES % (test code = IM GRANULOCYTES %) 0.3 0.0- 1.0 [facility] HospitalNeutrophils # (Auto)2019-07-22 11:55:00* Test Item Value Reference Range Interpretation Comments Neutrophils # (Auto) (test code = 751-8) 5.7 2.1-6.9 [facility] HospitalLymphocytes # (Auto)2019-07-22 11:55:00* Test Item Value Reference Range Interpretation Comments Lymphocytes # (Auto) (test code = 00406-0) 0.7 1.0-3.2 L [facility] HospitalMonocytes # (Auto)2019-07-22 11:55:00* Test Item Value Reference Range Interpretation Comments Monocytes # (Auto) (test code = 742-7) 0.2 0.2-0.8 [facility] HospitalEosinophils # (Auto)2019-07-22 11:55:00* Test Item Value Reference Range Interpretation Comments Eosinophils # (Auto) (test code = 711-2) 0.1 0.0-0.4 [facility] HospitalBasophils # (Auto)2019-07-22 11:55:00* Test Item Value Reference Range Interpretation Comments Basophils # (Auto) (test code = 704-7) 0.0 0.0-0.1 [facility] HospitalAbsolute Immature Granulocyte (auto 2019-07-22 11:55:00* Test Item Value Reference Range Interpretation Comments Absolute Immature Granulocyte (auto (carli t code = Absolute Immature Granulocyte (auto) 0.02 0-0.1 [facility] HospitalBlood Kbsgjfp0975-57-90 18:10:00* Test Item Value Reference Range Interpretation Comments Blood Culture (test code = 91776341) NO GROWTH AFTER 5 DAYS, FINAL REPORT [facility] HospitalBedside Ieccztg3782-86-92 20:58:00* Test Item Value Reference Range Interpretation Comments Bedside Glucose (test code = 72099-9) 282 70-120 H Meter ID: [id number] McKinney HospitalBedside Glucose 2019-07-16 20:58:00* Test Item Value Reference Range Interpretation Comments Bedside Glucose (test code = 80616-7) 282 70-120 H Meter ID: [id number] McKinney HospitalLactic Acid Level 2019-07-16 19:37:00* Test Item Value Reference Range Interpretation Comments Lactic Acid Level (test code = Lactic Acid Level) 1.2 0.5- 2.0 [facility] HospitalLactic Acid Fcxbs6473-20-31 19:37:00* Test Item Value Reference Range Interpretation Comments Lactic Acid Level (test code = Lactic Acid Level) 1.2 0.5- 2.0 [facility] Resourcesodium Fgkoe6630-96-37 18:53:00* Test Item Value Reference Range Interpretation Comments Sodium Level (test code = 2951-2) 133 136-145 L [facility] HospitalPotassium Iauuf7000-85-98 18:53:00* Test Item Value Reference Range Interpretation Comments Potassium Level (test code = 2823-3) 4.6 3.5-5.1 [facility] HospitalChloride Fphnp2678-31-91 18:53:00* Test Item Value Reference Range Interpretation Comments Chloride Level (test code = 2075-0) 96 98-107 L [facility] HospitalCarbon Dioxide Zdutc6604-95-70 18:53:00* Test Item Value Reference Range Interpretation Comments Carbon Dioxide Level (test code = 2028-9) 26 22-29 [facility] HospitalAnion Rfg6325-86-77 18:53:00* Test Item Value Reference Range Interpretation Comments Anion Gap (test code = 24476-1) 15.6 8-16 [facility] HospitalBlood Urea Kkbptdrq5628-15-25 18:53:00* Test Item Value Reference Range Interpretation Comments Blood Urea Nitrogen (test code = 3094-0) 22 7-26 [facility] HospitalCreatinine2020-03-11 18:53:00* Test Item Value Reference Range Interpretation Comments Creatinine (test code = 2160-0) 1.80 0.72-1.25 H [facility] HospitalBUN/Creatinine Wfofn5877-64-44 18:53:00* Test Item Value Reference Range Interpretation Comments BUN/Creatinine Ratio (test code = 3097-3) 12 6-25 [facility] HospitalEstimat Glomerular Filtration Rate 2019-07-16 18:53:00* Test Item Value Reference Range Interpretation Comments Estimat Glomerular Filtration Rate (test code = 480219496) 40 >60 L Ranges were taken from the National Kidney Disease Education Program and the [facility] literature.Reference ranges:60 or greater: Lekmlf57-10 ( for 3 consecutive months): Chronic kidney disease 15 or less: Kidney failureMethodist McKinney HospitalGlucose Vntco5912-45-68 18:53:00* Test Item Value Reference Range Interpretation Comments Glucose Level (test code = IXP2400) 543 74-118 HH Results repeated and called to [place] at 1853 on 07/16/19 by Marissa Mendez. Read back and verified.[facility] HospitalCalcium Qmaks0757-29-05 18:53:00* Test Item Value Reference Range Interpretation Comments Calcium Level (test code = 48562-1) 10.0 8.4-10.2 [facility] HospitalTotal Aimasxlqt4137-67-04 18:53:00* Test Item Value Reference Range Interpretation Comments Total Bilirubin (test code = 1975-2) 0.5 0.2-1.2 [facility] HospitalAspartate Amino Transf (AST/SGOT) 2019-07-16 18:53:00* Test Item Value Reference Range Interpretation Comments Aspartate Amino Transf (AST/SGOT) (test code = Aspartate Amino Transf (AST/SGOT)) 17 5-34 [facility] HospitalAlanine Aminotransferase (ALT/SGPT) 2019-07-16 18:53:00* Test Item Value Reference Range Interpretation Comments Alanine Aminotransferase (ALT/SGPT) (test code = 1742-6) 25 0-55 [facility] HospitalTotal Oljibyi9052-35-25 18:53:00* Test Item Value Reference Range Interpretation Comments Total Protein (test code = 2885-2) 8.8 6.5-8.1 H [facility] HospitalAlbumin2020-03-11 18:53:00* Test Item Value Reference Range Interpretation Comments Albumin (test code = 1751-7) 4.7 3.5-5.0 [facility] HospitalGlobulin2020-03-11 18:53:00* Test Item Value Reference Range Interpretation Comments Globulin (test code = 58884-0) 4.1 2.3-3.5 H [facility] HospitalAlbumin/Globulin Jbclw5540-59-38 18:53:00 * Test Item Value Reference Range Interpretation Comments Albumin/Globulin Ratio (test code = 1759-0) 1.1 0.8-2.0 [facility] HospitalAlkaline Laaocospqfi4588-32-61 18:53:00* Test Item Value Reference Range Interpretation Comments Alkaline Phosphatase (test code = 6768-6) 93 40-150 [facility] HospitalCreatine Fuibze9276-59-43 18:53:00* Test Item Value Reference Range Interpretation Comments Creatine Kinase (test code = 2157-6) 40 30-200 [facility] HospitalCreatine Kinase QC9673-53-49 18:53:00* Test Item Value Reference Range Interpretation Comments Creatine Kinase MB (test code = 39426-5) 0.60 0-5.0 [facility] HospitalTroponin E3867-30-39 18:53:00* Test Item Value Reference Range Interpretation Comments Troponin I (test code = LML4787) 0.011 0-0.300 [facility] HospitalCreatine Bkwgir5485-56-23 18:53:00* Test Item Value Reference Range Interpretation Comments Creatine Kinase (test code = 2157-6) 40 30-200 [facility] HospitalCreatine Kinase UC7333-41-84 18:53:00* Test Item Value Reference Range Interpretation Comments Creatine Kinase MB (test code = 53202-2) 0.60 0-5.0 [facility] HospitalTroponin A1444-75-77 18:53:00* Test Item Value Reference Range Interpretation Comments Troponin I (test code = RPO6855) 0.011 0-0.300 [facility] HospitalB-Type Natriuretic Reozpxe2207-62-36 18:39:00* Test Item Value Reference Range Interpretation Comments B-Type Natriuretic Peptide (test code = 81697-9) < 10.0 0-100 [facility] HospitalB-Type Natriuretic Sqvlllc2609-58-70 18:39:00* Test Item Value Reference Range Interpretation Comments B-Type Natriuretic Peptide (test code = 81198-5) < 10.0 0-100 [facility] HospitalCHE[facility]ING[facility] ([facility])2019-07-16 18:26:00 [facility] [address] [address] Patient Name: EDWARD GONSALEZ MR #: [id number] : 1970 Age/Sex: 48/M Req #: [id number] Adm Physician: Ordered by: BALDEMAR MELGAR NP Report #: [id number] Location: ER Room/Bed: Procedure: [id number] DX/ CHEST SINGLE (PORTABLE) Exam Date: 07/16/19 Exam Robert e: 1730 REPORT STATUS: Signed EX AMINATION: CHEST SINGLE (PORTABLE) COMPARISON: None INDICATION: F lulike symptoms ERMD ORDER [id number] Y DISCUSSION: Fro ntal view of [...] MD 1826 Transcribed By: EDNA on 07/16/19 5393 COPY TO: ZENOBIA MELGARNA MANAGER ELIGIBILITY Urine [id number] 18:20:00* Test Item Value Reference Range Interpretation Comments Urine WBC (test code = 5821-4) NONE 0-5 [facility] HospitalUrine BFR6922-61-74 18:20:00* Test Item Value Reference Range Interpretation Comments Urine RBC (test code = 90104-7) NONE 0-5 [facility] HospitalUrine Zsjifzdr7712-55-64 18:20:00* Test Item Value Reference Range Interpretation Comments Urine Bacteria (test code = 74290-4) NONE NONE [facility] HospitalUrine Epithelial Wzhub9297-20-91 18:20:00 * Test Item Value Reference Range Interpretation Comments Urine Epithelial Cells (test code = 87647-9) RARE NONE [facility] HospitalUrine Lcmry4043-44-31 18:12:00* Test Item Value Reference Range Interpretation Comments Urine Color (test code = 5778-6) YELLOW YELLOW [facility] HospitalUrine Nqtnmxr6598-76-42 18:12:00* Test Item Value Reference Range Interpretation Comments Urine Clarity (test code = 58845-5) SL CLOUDY CLEAR H [facility] HospitalUrine Specific Yczzvkp9524-42-59 18:12:00 * Test Item Value Reference Range Interpretation Comments Urine Specific [place] (test code = 5811-5) 1.015 1.010-1.02 5 [facility] HospitalUrine uK5516-80-01 18:12:00* Test Item Value Reference Range Interpretation Comments Urine pH (test code = 74310-8) 5 5-7 [facility] HospitalUrine Leukocyte Iifwmcpt8046-05-50 18:12:00* Test Item Value Reference Range Interpretation Comments Urine Leukocyte Esterase (test code = 5799-2) NEGATIVE NEGATIVE [facility] HospitalUrine Ipvlkkn0641-46-70 18:12:00* Test Item Value Reference Range Interpretation Comments Urine Nitrite (test code = 59002-5) NEGATIVE NEGATIVE [facility] HospitalUrine Ffrrvid1016-19-16 18:12:00* Test Item Value Reference Range Interpretation Comments Urine Protein (test code = 5804-0) NEGATIVE NEGATIVE [facility] HospitalUrine Glucose (UA)2019-07-16 18:12:00* Test Item Value Reference Range Interpretation Comments Urine Glucose (UA) (test code = 2349-9) 2+ NEGATIVE H [facility] HospitalUrine Ugxqgja1717-44-10 18:12:00* Test Item Value Reference Range Interpretation Comments Urine Ketones (test code = 69680-7) NEGATIVE NEGATIVE [facility] HospitalUrine Kesfezpcbjgy7461-70-34 18:12:00* Test Item Value Reference Range Interpretation Comments Urine Urobilinogen (test code = 84203-7) 0.2 0.2-1 [facility] HospitalUrine Rzfqitjkz9249-29-89 18:12:00* Test Item Value Reference Range Interpretation Comments Urine Bilirubin (test code = 1978-6) NEGATIVE NEGATIVE [facility] HospitalUrine Iltwm3643-70-53 18:12:00* Test Item Value Reference Range Interpretation Comments Urine Blood (test code = 96869-0) NEGATIVE NEGATIVE [facility] HospitalProthrombin Smuw4171-28-57 18:06:00* Test Item Value Reference Range Interpretation Comments Prothrombin Time (test code = 5902-2) 13.0 11.9-14.5 [facility] HospitalProthromb Time International Ratio 2019-07-16 18:06:00* Test Item Value Reference Range Interpretation Comments Prothromb Time International Ratio (test code = 6301-6) 0.93 Oral Anticoagulant Therapy INR Values:1. Low Intensity Therapy 1.5 - 2.02 . Moderate Intensity Therapy 2.0 - 3.03. High Intensity Therapy(1) 2.5 - 3. 54. High Intensity Therapy(2) 3.0 - 4.05. Panic Value INR > 5.0 [facility] HospitalActivated Partial Thromboplast Time 2019-07-16 18:06:00* Test Item Value Reference Range Interpretation Comments Activated Partial Thromboplast Time (test code = 45845-6) 34.9 23.8-35.5 [facility] HospitalProthrombin Zetg6878-85-62 18:06:00* Test Item Value Reference Range Interpretation Comments Prothrombin Time (test code = 5902-2) 13.0 11.9-14.5 [facility] HospitalProthromb Time International Ratio 2019-07-16 18:06:00* Test Item Value Reference Range Interpretation Comments Prothromb Time International Ratio (test code = 6301-6) 0.93 Oral Anticoagulant Therapy INR Values:1. Low Intensity Therapy 1.5 - 2.02 . Moderate Intensity Therapy 2.0 - 3.03. High Intensity Therapy(1) 2.5 - 3. 54. High Intensity Therapy(2) 3.0 - 4.05. Panic Value INR > 5.0 [facility] HospitalActivated Partial Thromboplast Time 2019-07-16 18:06:00* Test Item Value Reference Range Interpretation Comments Activated Partial Thromboplast Time (test code = 83005-1) 34.9 23.8-35.5 [facility] HospitalWhite Blood Gadbd7957-20-33 18:01:00* Test Item Value Reference Range Interpretation Comments White Blood Count (test code = 6690-2) 6.93 4.8-10.8 [facility] HospitalRed Blood Xzwdx6836-48-70 18:01:00* Test Item Value Reference Range Interpretation Comments Red Blood Count (test code = 789-8) 5.74 4.3-5.7 H [facility] HospitalHemoglobin2020-03-11 18:01:00* Test Item Value Reference Range Interpretation Comments Hemoglobin (test code = 03499-8) 17.8 14.0-18.0 [facility] HospitalHematocrit2020-03-11 18:01:00* Test Item Value Reference Range Interpretation Comments Hematocrit (test code = 4544-3) 51.4 38.2-49.6 H [facility] HospitalMean Corpuscular Eeqrau0989-15-32 18:01:00* Test Item Value Reference Range Interpretation Comments Mean Corpuscular Volume (test code = 787-2) 89.5 81-99 [facility] HospitalMean Corpuscular Hsusglmtbk6313-39-71 18:01:00* Test Item Value Reference Range Interpretation Comments Mean Corpuscular Hemoglobin (test code = 785-6) 31.0 28-32 [facility] HospitalMean Corpuscular Hemoglobin Concent 2019-07-16 18:01:00* Test Item Value Reference Range Interpretation Comments Mean Corpuscular Hemoglobin Concent (test code = 786-4) 34.6 31-35 [facility] HospitalRed Cell Distribution Jjdwy6017-84-15 18:01:00* Test Item Value Reference Range Interpretation Comments Red Cell Distribution Width (test code = 64156-7) 11.9 11.7 -14.4 [facility] HospitalPlatelet Itpld0541-68-57 18:01:00* Test Item Value Reference Range Interpretation Comments Platelet Count (test code = 777-3) 163 140-360 [facility] HospitalNeutrophils (%) (Auto)2019-07-16 18:01:00 * Test Item Value Reference Range Interpretation Comments Neutrophils (%) (Auto) (test code = 35265-2) 80.8 38.7-80.0 H [facility] HospitalLymphocytes (%) (Auto)2019-07-16 18:01:00 * Test Item Value Reference Range Interpretation Comments Lymphocytes (%) (Auto) (test code = 736-9) 8.9 18.0-39.1 L [facility] HospitalMonocytes (%) (Auto)2019-07-16 18:01:00* Test Item Value Reference Range Interpretation Comments Monocytes (%) (Auto) (test code = 5905-5) 9.5 4.4-11.3 [facility] HospitalEosinophils (%) (Auto)2019-07-16 18:01:00 * Test Item Value Reference Range Interpretation Comments Eosinophils (%) (Auto) (test code = 713-8) 0.1 0.0-6.0 [facility] HospitalBasophils (%) (Auto)2019-07-16 18:01:00* Test Item Value Reference Range Interpretation Comments Basophils (%) (Auto) (test code = 706-2) 0.3 0.0-1.0 [facility] HospitalIM GRANULOCYTES %2019-07-16 18:01:00* Test Item Value Reference Range Interpretation Comments IM GRANULOCYTES % (test code = IM GRANULOCYTES %) 0.4 0.0- 1.0 [facility] HospitalNeutrophils # (Auto)2019-07-16 18:01:00* Test Item Value Reference Range Interpretation Comments Neutrophils # (Auto) (test code = 751-8) 5.6 2.1-6.9 [facility] HospitalLymphocytes # (Auto)2019-07-16 18:01:00* Test Item Value Reference Range Interpretation Comments Lymphocytes # (Auto) (test code = 02766-1) 0.6 1.0-3.2 L [facility] HospitalMonocytes # (Auto)2019-07-16 18:01:00* Test Item Value Reference Range Interpretation Comments Monocytes # (Auto) (test code = 742-7) 0.7 0.2-0.8 [facility] HospitalEosinophils # (Auto)2019-07-16 18:01:00* Test Item Value Reference Range Interpretation Comments Eosinophils # (Auto) (test code = 711-2) 0.0 0.0-0.4 [facility] HospitalBasophils # (Auto)2019-07-16 18:01:00* Test Item Value Reference Range Interpretation Comments Basophils # (Auto) (test code = 704-7) 0.0 0.0-0.1 [facility] HospitalAbsolute Immature Granulocyte (auto 2019-07-16 18:01:00* Test Item Value Reference Range Interpretation Comments Absolute Immature Granulocyte (auto (carli t code = Absolute Immature Granulocyte (auto) 0.03 0-0.1 [facility] HospitalGroup A Streptococcus Jrhtid9607-75-70 16:45:00* Test Item Value Reference Range Interpretation Comments Group A Streptococcus Screen (test code = 04835-8) NEGATIVE NEG ATIVE [facility] HospitalInfluenza Virus Types A,B Antigen 2019-07-16 16:35:00* Test Item Value Reference Range Interpretation Comments Influenza Virus Types A,B Antigen (test code = 08403-4) NEGATIVE NEGATIVE [facility] HospitalPOCT-GLUCOSE UFGFS1072-55-57 11:29:00* Test Item Value Reference Range Interpretation Comments POC-GLUCOSE METER (BEAKER) (test code = 1538) 208 mg/dL 70-110 H TESTED AT [facility] [address] [facility] [place] [address] LIPID [id number] 09:01:00* Test Item Value Reference Range Interpretation [...] 130-159 High 160-189 Very High >=190 HEMOGLOBIN [id number] 08:47:00* Test Item Value Reference Range Interpretation Comments HEMOGLOBIN A1C (BEAKER) (test code = 368) 10.2 % 4.3-6.1 H CREATINE KINASE (CK), TOTAL AND [id number] 08:21:00* Test Item Value Reference Range Interpretation Comments CREATINE KINASE TOTAL (BEAKER) (test code = 380) 97 U/L 40-25 0 CREATINE KINASE-MB (BEAKER) (test code = 750) 7.7 ng/mL 0.0-4.9 H CREATINE KINASE-MB INDEX (BEAKER) (test code = 395) 7.9 % CK-MB Reference Range:<5 Normal5-10 Borderline>10 AbnormalBASIC METABOLIC HSFTP7102-64-59 08:06:00* Test Item Value Reference Range Interpretation [...] GFR IS NOT APPLICABLE FOR DIALYSIS PATIENTS. ISIZOXBEA5318-77-66 07:58:00* Test Item Value Reference Range Interpretation Comments MAGNESIUM (BEAKER) (test code = 627) 2.8 mg/dL 1.5-3.0 Specimen slightly hemolyzed POCT-GLUCOSE [id number] 07:49:00* Test Item Value Reference Range Interpretation Comments POC-GLUCOSE METER (BEAKER) (test code = 1538) 181 mg/dL 70-110 H TESTED AT [facility] [address] [facility] [address] CBC W/PLT COUNT & AUTO [id number] 07:41:00* Test Item Value Reference Range Interpretation [...] 417) 0.10 K/ L 0. 00-0.20 POCT-GLUCOSE [id number] 21:27:00* Test Item Value Reference Range Interpretation Comments POC-GLUCOSE METER (BEAKER) (test code = 1538) 276 mg/dL 70-110 H TESTED AT [address] [address] BLOOD [id number] 19:00:00* Test Item Value Reference Range Interpretation Comments CULTURE (BEAKER) (test code = 1095) No growth in 5 days BLOOD [id number] 19:00:00* Test Item Value Reference Range Interpretation Comments CULTURE (BEAKER) (test code = 1095) No growth in 5 days POCT-GLUCOSE [id number] 18:41:00* Test Item Value Reference Range Interpretation Comments POC-GLUCOSE METER (BEAKER) (test code = 1538) 175 mg/dL 70-110 H TESTED AT [address] [address] BASIC METABOLIC [id number] 17:35:00* Test Item Value Reference Range Interpretation [...] GFR IS NOT APPLICABLE FOR DIALYSIS PATIENTS. [id number] 17:29:00* Test Item Value Reference Range Interpretation Comments MAGNESIUM (BEAKER) (test code = 627) 2.4 mg/dL 1.5-3.0 CBC W/PLT COUNT & AUTO [id number] 17:20:00* Test Item Value Reference Range Interpretation [...] 417) 0.00 K/ L 0. 00-0.20 POCT-GLUCOSE [id number] 16:39:00* Test Item Value Reference Range Interpretation Comments POC-GLUCOSE METER (BEAKER) (test code = 1538) 180 mg/dL 70-110 H TESTED AT [address] [address] POCT-GLUCOSE [id number] 12:54:00* Test Item Value Reference Range Interpretation Comments POC-GLUCOSE METER (BEAKER) (test code = 1538) 331 mg/dL 70-110 H TESTED AT [address] [address] POCT-GLUCOSE [id number] 06:37:00* Test Item Value Reference Range Interpretation Comments POC-GLUCOSE METER (BEAKER) (test code = 1538) 212 mg/dL 70-110 H TESTED AT [address] [address] POCT-GLUCOSE [id number] 20:54:00* Test Item Value Reference Range Interpretation Comments POC-GLUCOSE METER (BEAKER) (test code = 1538) 167 mg/dL 70-110 H TESTED AT [facility] [address] [facility] [address] POCT-GLUCOSE [id number] 17:00:00* Test Item Value Reference Range Interpretation Comments POC-GLUCOSE METER (BEAKER) (test code = 1538) 156 mg/dL 70-110 H TESTED AT [address] [address] ANTI-NUCLEAR ANTIBODY (BRENDEN)2016-10-16 14:30:00* Test Item Value Reference Range Interpretation Comments ANTI-NUCLEAR ANTIBODY (BRENDEN) (BEAKER) (test code = 418) Negative Negative POCT-GLUCOSE [id number] 13:01:00* Test Item Value Reference Range Interpretation Comments POC-GLUCOSE METER (BEAKER) (test code = 1538) 245 mg/dL 70-110 H TESTED AT [address] [address] POCT-GLUCOSE [id number] 11:53:00* Test Item Value Reference Range Interpretation Comments POC-GLUCOSE METER (BEAKER) (test code = 1538) 269 mg/dL 70-110 H TESTED AT [address] [address] POCT-GLUCOSE [id number] 06:15:00* Test Item Value Reference Range Interpretation Comments POC-GLUCOSE METER (BEAKER) (test code = 1538) 263 mg/dL 70-110 H TESTED AT [address] [address] POCT-GLUCOSE [id number] 06:02:00* Test Item Value Reference Range Interpretation Comments POC-GLUCOSE METER (BEAKER) (test code = 1538) 176 mg/dL 70-110 H TESTED AT [address] [address] POCT-GLUCOSE [id number] 05:41:00* Test Item Value Reference Range Interpretation Comments POC-GLUCOSE METER (BEAKER) (test code = 1538) 202 mg/dL 70-110 H TESTED AT [address] [address] POCT-GLUCOSE [id number] 05:21:00* Test Item Value Reference Range Interpretation Comments POC-GLUCOSE METER (BEAKER) (test code = 1538) 183 mg/dL 70-110 H TESTED AT [facility] [address] [facility] [address] POCT-GLUCOSE [id number] 05:05:00* Test Item Value Reference Range Interpretation Comments POC-GLUCOSE METER (BEAKER) (test code = 1538) 176 mg/dL 70-110 H TESTED AT [facility] [address] [facility] [address] POCT-GLUCOSE [id number] 04:59:00* Test Item Value Reference Range Interpretation Comments POC-GLUCOSE METER (BEAKER) (test code = 1538) 269 mg/dL 70-110 H TESTED AT [facility] [address] [facility] [address] TROPONIN [id number] 13:40:00* Test Item Value Reference Range Interpretation [...] per sistent tachyarrhythmia.CREATINE KINASE (CK), TOTAL AND [id number] 13:40:00* Test Item Value Reference Range Interpretation Comments CREATINE KINASE TOTAL (BEAKER) (test code = 380) 46 U/L 40-25 0 CREATINE KINASE-MB (BEAKER) (test code = 750) 0.6 ng/mL 0.0-4.9 CREATINE KINASE-MB INDEX (BEAKER) (test code = 395) 1.3 % CK-MB Reference Range:<5 Normal5-10 Borderline>10 AbnormalBASIC METABOLIC [id number] 13:40:00* Test Item Value Reference Range Interpretation [...] DIALYSIS PATIENTS. CBC W/PLT COUNT & AUTO [id number] 12:50:00* Test Item Value Reference Range Interpretation [...] 417) 0.00 K/ L 0. 00-0.20 POCT-GLUCOSE [id number] 05:43:00* Test Item Value Reference Range Interpretation Comments POC-GLUCOSE METER (BEAKER) (test code = 1538) 183 mg/dL 70-110 H TESTED AT [address] [address] POCT-GLUCOSE [id number] 21:00:00* Test Item Value Reference Range Interpretation Comments POC-GLUCOSE METER (BEAKER) (test code = 1538) 189 mg/dL 70-110 H TESTED AT [address] [address] POCT-GLUCOSE [id number] 16:49:00* Test Item Value Reference Range Interpretation Comments POC-GLUCOSE METER (BEAKER) (test code = 1538) 230 mg/dL 70-110 H TESTED AT [address] [address] POCT-GLUCOSE [id number] 12:01:00* Test Item Value Reference Range Interpretation Comments POC-GLUCOSE METER (BEAKER) (test code = 1538) 219 mg/dL 70-110 H TESTED AT [address] [address] POCT-GLUCOSE [id number] 07:13:00* Test Item Value Reference Range Interpretation Comments POC-GLUCOSE METER (BEAKER) (test code = 1538) 206 mg/dL 70-110 H TESTED AT [place] [address] [facility] [address] VANCOMYCIN LEVEL, [id number] 05:07:00* Test Item Value Reference Range Interpretation Comments VANCOMYCIN TROUGH (BEAKER) (test code = 522) 12.5 ug/mL 10.0-20.0 B-TYPE NATRIURETIC FACTOR (BNP)2016-10-13 04:52:00* Test Item Value Reference Range Interpretation Comments B-TYPE NATRIURETIC PEPTIDE (BINDU) (test code = 700) 21 pg/mL 0-100 Draw labs at 7 am Sunday 14POCT-GLUCOSE [id number] 21:33:00* Test Item Value Reference Range Interpretation Comments POC-GLUCOSE METER (BINDU) (test code = 1538) 229 mg/dL 70-110 H TESTED AT [place] [address]78 POCT-GLUCOSE [id number] 19:05:00* Test Item Value Reference Range Interpretation Comments POC-GLUCOSE METER (BINDU) (test code = 1538) 243 mg/dL 70-110 H TESTED AT [place] [id number] T4, [id number] 18:34:00* Test Item Value Reference Range Interpretation Comments FREE T4 (BINDU) (test code = 655) 1.03 ng/dL 0.90-1.80 [id number] 18:33:00* Test Item Value Reference Range Interpretation Comments THYROID STIMULATING HORMONE (BINDU) (test code = 772) 1.10 uIU/mL 0.35-5.50 POCT-GLUCOSE [id number] 15:09:00* Test Item Value Reference Range Interpretation Comments POC-GLUCOSE METER (BINDU) (test code = 1538) 202 mg/dL 70-110 H TESTED AT [place] [address]78
--- NOTE | 2019-12-19 15:00 | NUR ---
95Ambulated pt in hallway for approx 5 min in hallway with rollator saturation level dropped to 83% on RA. Pt ambulated back to room, upon sitting pt recovered and increased to 98% after 5 min on RA.
--- NOTE | 2019-12-19 17:41 | Diagnostic Imaging Report ---
Perfusion Lung Scan NOTE: Lung ventilation studies with xenon are not being performed per the recommendation of the Society of Nuclear Medicine and Molecular Imaging. It is not possible to be certain that the ventilation system is adequately disinfected. Ventilation studies with Tc-99m DTPA particles is contraindicated because the delivery by nebulization generates too many water droplets from the patient's airway. Clinical Information: Dyspnea, SOB. Hypoxia with walking. Recently recovered from Covid-19. Comparison: Chest radiograph 12/19/2019 Discussion: Ventilation images were not obtained. See note above. Perfusion images of the lungs were obtained in multiple projections following intravenous administration of approximately 6.1 mCi of Tc-99m MAA. Distribution of tracer is mildly irregular throughout the lungs. No segmental perfusion defects of any size are identified. The cardiomediastinal silhouette is unremarkable. Impression: 1. Scan findings represent a VERY LOW probability for acute pulmonary embolic disease based on the perfusion-only PIOPED II criteria. A concurrent ventilation study would not alter this assigned probability for acute PE. 2. Scan findings are compatible with diffuse parenchymal and/or obstructive lung disease. Signed by: Dr. Miladis Matias M.D. on 12/19/2019 5:38 PM
[2019-12-19 17:47] VITALS: BP_SYST 113; BP_SYST 131; BP_DIAS 75; BP_DIAS 84
[2019-12-19 18:00] VITALS: BP 131/84
[2019-12-19 18:07] VITALS: BP 131/84
[2019-12-19 20:00] VITALS: BP 144/98
[2019-12-19 20:34] VITALS: BP 144/98
[2019-12-19 21:00] VITALS: BP 144/98
[2019-12-20] VITALS (9 sets, daily range): BP systolic 121–167; BP diastolic 74–102
--- NOTE | 2019-12-20 00:53 | NUR ---
Pt has complaints of a headache. Spoke to Dr. Aguirre via phone. New orders received for Tylenol 650 mg PRN for pain. Will administer medication as ordered when approved by pharmacy.
[2019-12-20] MEDS ORDERED: ACETAMINOPHEN 325 MG TAB PO PRN (01:00)
[2019-12-20 06:51] LABS: BASOPHILS % 0.3 % (0.0-1.0); EOSINOPHILS # (AUTO) 0.4 (0.0-0.4); EOSINOPHILS % 4.1 % (0.0-6.0); HEMATOCRIT 34.6 % (38.2-49.6); LYMPHOCYTES # (AUTO) 1.5 (1.0-3.2); MEAN CORPUSCULAR HEMOGLOBIN 29.5 pg (28-32); MEAN CORPUSCULAR HGB CONC 31.8 g/dL (31-35); MEAN CORPUSCULAR VOLUME 92.8 fL (81-99); MONOCYTES # (AUTO) 0.7 (0.2-0.8); MONOCYTES % 7.2 % (4.4-11.3); NEUTROPHILS # (AUTO) 7.5 (2.1-6.9); NEUTROPHILS % 73.1 % (38.7-80.0); PLATELET COUNT 193 x10e3/uL (140-360); RED BLOOD COUNT 3.73 x10e6/uL (4.3-5.7); RED CELL DISTRIBUTION WIDTH 13.9 % (11.7-14.4)
[2019-12-20 07:11] LABS: ALBUMIN 3.3 g/dL (3.5-5.0); ALBUMIN/GLOBULIN RATIO 0.9 (0.8-2.0); ANION GAP 15.3 mmol/L (8-16); CALCIUM 9.3 mg/dL (8.4-10.2); CREATININE, SERUM 2.69 mg/dL (0.72-1.25); POTASSIUM 4.3 mmol/L (3.5-5.1)
[2019-12-20] MEDS ORDERED: REGLAN5 MG PO (08:15)
[2019-12-20] MEDS ORDERED: ULTRAM50 MG PO (08:15)
[2019-12-20] MEDS ORDERED: AMLODIPINE BESYL5 MG PO (08:15)
[2019-12-20] MEDS ORDERED: VITAMIN D250 MCG PO (08:15)
[2019-12-20] MEDS ORDERED: BUSPIRONE HCL5 MG PO (08:16)
[2019-12-20] MEDS ORDERED: COLACE100 MG PO (08:17)
[2019-12-20] MEDS ORDERED: LANTUS 3ML100 UNITS/ SQ (11:22)
[2019-12-20] MEDS ORDERED: ROBAXIN-750750 MG PO (11:28)
[2019-12-20] MEDS ORDERED: METOPROLOL TART25 MG PO (11:28)
[2019-12-20] MEDS ORDERED: LYRICA75 MG PO (11:28)
[2019-12-20] MEDS ORDERED: SERTRALINE HCL100 MG PO (11:33)
[2019-12-20] MEDS ORDERED: METHOCARBAMOL 750 MG TAB PO PRN (12:15)
[2019-12-20] MEDS: TRAMADOL HCL 50 MG TAB PO PRN ×2 (12:17→16:46)
--- NOTE | 2019-12-20 13:21 | NUR ---
Spoke with Dr. Aguirre. States pt can discharge home once home O2 arranged. Dr. Aguirre states concentrator must be delivered prior to pt discharging to ensure pt has it. Spoke to pt at bedside. Home O2 eval was done and pt desat to 85% on exertion. Pt states to use any company that would take his insurance. Choice letter signed for [facility] and [employer]. Copy placed in pt's transition of care folder. Signed copy in chart. NORTH called and spoke to Burke with [employer]. Burke states since pt is s/p COVID and does not actively have COVID, pt does not have a qualifying diagnosis. Dr. Aguirre was informed and states VQ scan showed lung scarring and states to send that report. NORTH spoke to pt at bedside and discussed possible need to pay for oxygen out of pocket if he does not qualify. Gave him self pay maldonado of $120/month. Pt states he cannot do that at this time since he has a lot of medical bills. Referral was faxed to [facility] at [phone] / . Burke was updated and notified that referral was sent.
[2019-12-20] MEDS ORDERED: DEXTROSE 50% SYRINGE 50 ML IV PRN (14:00)
[2019-12-20] MEDS ORDERED: METHYLPREDNISOLONE SOD SUCC 40 MG/ML VIAL 1ML IV NR (16:00)
--- NOTE | 2019-12-20 16:26 | Consultation ---
DATE OF CONSULTATION: Pulmonary Critical Care Consultation CHIEF COMPLAINT: Dyspnea with exertion. HISTORY OF PRESENT ILLNESS: The patient is a 49-year-old man. He was hospitalized in July with COVID-19. He had respiratory failure and required ventilation for over a month. He required a tracheostomy. He was subsequently sent to a rehab facility. He had extensive rehab. He also required wound care for decubitus ulcer. The patient left the rehab facility on the 17 of November. He apparently was walking with a walker at that time. He also had some neuropathy in his legs as well as his arm. Over the past 7 to 10 days, he has noted increased dyspnea. He notes dyspnea is worse with exertion. He denies any cough. He came to the ER. He was found to have a low oxygen saturation with exertion. He had a V/Q scan that showed no evidence of pulmonary embolism. PAST SURGICAL HISTORY: Status post tracheostomy. PAST MEDICAL HISTORY: 1. Respiratory failure and COVID-19 infection as noted above. 2. Diabetes. 3. Hypertension. SOCIAL HISTORY: The patient is not an active smoker or drinker. ALLERGIES: NO KNOWN DRUG ALLERGIES. FAMILY HISTORY: Noncontributory. REVIEW OF SYSTEMS: There is no fever. He has no headache. He has no neck pain. He is not complaining of any chest pain. He has some dyspnea with exertion, but no cough. He is not having any abdominal pain. He has no nausea or vomiting. He has some weakness and numbness in both lower extremities. LABORATORY DATA: The BUN to creatinine ratio is 63 to 2.69. Carbon dioxide is 20 and the chloride is 109. Albumin is 3.3. White blood cell count is 10.2 and hemoglobin is 11. The platelet count is 193. RADIOGRAPHIC DATA: V/Q scan shows low probability for pulmonary embolism. IMPRESSION: 1. Dyspnea on exertion. 2. Prior history of coronavirus disease - 19 and respiratory failure. 3. Bronchitis and obstructive lung disease. 4. Chronic renal failure stage 3. 5. Diabetes. PLAN: 1. The patient will have Solu-Medrol x1 dose. 2. Continue bronchodilators. 3. Arrange for home oxygen. 4. Echocardiogram. 5. Repeat EKG. Joseph Ch MD [facility]/MODL /[id number]
[2019-12-20] MEDS: INSULIN LISPRO 100 UNIT/1 ML 3ML VIAL SQ SCH ×2 (16:42→21:00)
[2019-12-20] MEDS: METOPROLOL TARTRATE 25 MG TAB PO SCH (16:43)
[2019-12-20] MEDS: PREGABALIN 75 MG CAP PO SCH (16:44)
[2019-12-20] MEDS: SERTRALINE HCL 100 MG TAB PO SCH (21:00)
[2019-12-20] MEDS: INSULIN GLARGINE 100 UNITS/ML VIAL SQ SCH (21:00)
--- NOTE | 2019-12-20 22:00 | NUR ---
Pt BG is 177. Humalog 3 units and Lantus 41 units scheduled at this time. Pt refuses alyce's dose of insulin due to him not eating much of his dinner. Will continue to monitor pt.
--- NOTE | 2019-12-20 22:00 | NUR ---
Pt has complaints of N & V. No PRN orders at this time. Dr. Aguirre paged. Awaiting call back.
--- NOTE | 2019-12-20 22:56 | NUR ---
Received call back from Dr. Aguirre. Pt states his pain level is intolerable at a level of 8/10 and he believes this is contributing to his nausea. Dr. Aguirre informed. New orders received for Dilaudid 2 mg IV every 4 hours as needed for pain and Zofran 4 mg IV as needed for nausea. Will implement new orders and continue to monitor pt.
[2019-12-20] MEDS ORDERED: HYDROMORPHONE 2MG/ML 2 MG/ML ML IV PRN ×2 (23:00→23:45)
[2019-12-20] MEDS ORDERED: ONDANSETRON HCL INJ 2MG/ML 2ML 2 MG/ML VIAL IV PRN (23:00)
[2019-12-21] VITALS (8 sets, daily range): BP systolic 110–144; BP diastolic 72–95
[2019-12-21] MEDS ORDERED: ONDANSETRON HCL INJ 2MG/ML 2ML 2 MG/ML VIAL IV ONE (00:30)
[2019-12-21] MEDS ORDERED: HYDROMORPHONE 2MG/ML 2 MG/ML ML IV ONE (00:30)
[2019-12-21] MEDS: HYDROMORPHONE 1MG/1ML INJ IV PRN ×3 (07:21→21:38)
[2019-12-21] MEDS: ONDANSETRON HCL INJ 2MG/ML 2ML 2 MG/ML VIAL IV PRN ×3 (07:22→21:38)
[2019-12-21] MEDS: INSULIN LISPRO 100 UNIT/1 ML 3ML VIAL SQ SCH ×4 (07:30→21:29)
[2019-12-21] MEDS: METOPROLOL TARTRATE 25 MG TAB PO SCH ×2 (08:49→16:45)
[2019-12-21] MEDS: PREGABALIN 75 MG CAP PO SCH ×2 (08:58→16:45)
--- NOTE | 2019-12-21 09:56 | NUR ---
PULMONARY CONSULT FROM Kirti PETIT SENT TO ALE WITH [facility] AND FAXED TO [facility] AT [phone] CONFIRMATION REC'D DX: GOOD, PRIOR COVID 19 AND RESP FAILURE; BRONCHITIS AND OBSTRUCTIVE LUNG DISEASE WILL AWAIT ALE'S ANSWER TO WEATHER THESE DX ARE HELPFUL IN QUALIFYING FOR O2 SATS ON EXERTION 85% ON ROOM AIR BEDSIDE PFT'S ORDERED TODAY PLAN DC IN AM PER S DUMONT
--- NOTE | 2019-12-21 10:20 | Diagnostic Imaging Report ---
EXAMINATION: CT of the neck without contrast HISTORY: 49-year-old male with acute respiratory failure, evaluate for tracheal stenosis COMPARISON: None TECHNIQUE: Multidetector helical axial images were obtained from the sternal notch through the skull base. Images were reconstructed using soft tissue and bone algorithms and were viewed in multiplanar format. Dose modulation, iterative reconstruction, and/or weight based adjustment of the mA/kV was utilized to reduce the radiation dose to as low as reasonably achievable. FINDINGS: Mass: No solid or cystic masses seen in the neck. Nodes: No radiographically significant cervical lymphadenopathy in this unenhanced study. Sinuses: Imaged portions unremarkable. Oral cavity: Unremarkable. Salivary glands: Parotid and submandibular glands unremarkable. Pharynx: Unremarkable. Larynx: Minimal dilatation of the left laryngeal ventricle may be related to partial left true vocal cord paralysis, no other imaging findings to write this finding. Cervical trachea: Irregularity and distortion of the right and the lateral margin of the lower cervical trachea, a well-circumscribed right and anterior wall thickening/folding measures about 5 mm in maximum thickness, and results in mild narrowing of the anterior trachea. Overall the trachea is tortuous and mildly deviated to the left at the level of the sternal notch. The visualized thoracic trachea down to the georgi otherwise is patent. No additional mural abnormalities. Thyroid gland: Unremarkable. Upper esophagus: Unremarkable. Blood vessels: Cannot be evaluated due to the lack of IV contrast Bones: Unremarkable. IMPRESSION: 1. Focal thickening/folding of the right lateral/anterior tracheal wall at the level of the sternal notch results in mild anterior tracheal narrowing as detail above. 2. No laryngeal/subglottic stenosis. 3. No discrete neck mass or enlarged cervical lymphadenopathy. 4. Partially visualized bilateral lung apices bronchiectasis and ill-defined opacities as well as minimal pleural parenchymal scarring. Signed by: Dr. Anne Marie Stringer M.D. on 12/21/2019 10:16 AM
--- NOTE | 2019-12-21 16:19 | Progress Note ---
DATE: SUBJECTIVE: The patient still has some dyspnea on exertion. CT scan of the neck showed no tracheal stenosis. He did have some bronchiectasis at the apices. PHYSICAL EXAMINATION: VITAL SIGNS: The patient is afebrile, blood pressure is 141/86, saturation is 96% on room air, but he desaturates to 83% with a walking. LYMPHATIC: Shows no submandibular, cervical, supraclavicular adenopathy. CARDIAC: Reveals regular rate and rhythm with normal S1, S2. LUNGS: Auscultation of lungs reveals rhonchorous breath sounds bilaterally. There is no wheezing. ABDOMEN: Soft and nontender. There is no rebound or guarding. EXTREMITIES: Shows no leg edema or calf tenderness. There is no cyanosis or clubbing. SKIN: Shows no rashes. NEUROLOGICAL: Shows no focal abnormalities. LABORATORY DATA: White blood cell count is 10.2, hemoglobin is 11, platelet count is 193. IMPRESSION: 1. Status post respiratory failure and COVID-19 infection. 2. Bronchiectasis and pulmonary fibrosis. 3. Obstructive lung disease. 4. Chronic renal failure stage 3. 5. Diabetes. PLAN: 1. The patient will have pulmonary function tests. 2. Arrange for home oxygen. 3. Continue bronchodilators as needed. 4. Physical therapy. Joseph Ch MD [facility]/MODL /[id number]
[2019-12-21] MEDS: SERTRALINE HCL 100 MG TAB PO SCH (21:00)
[2019-12-21] MEDS: INSULIN GLARGINE 100 UNITS/ML VIAL SQ SCH (21:29)
--- NOTE | 2019-12-21 22:41 | NUR ---
Pt lying in bed resting quietly. Breathing regular and unlabored. Denies any pain at this time. No needs verbalized. Will continue to monitor.
[2019-12-22] VITALS: BP 108/76
[2019-12-22] MEDS: ONDANSETRON HCL INJ 2MG/ML 2ML 2 MG/ML VIAL IV PRN ×4 (02:17→16:54)
[2019-12-22] MEDS: HYDROMORPHONE 1MG/1ML INJ IV PRN ×4 (02:17→16:54)
[2019-12-22 04:00] VITALS: BP 125/79
[2019-12-22] MEDS: INSULIN LISPRO 100 UNIT/1 ML 3ML VIAL SQ SCH ×3 (07:30→16:25)
--- NOTE | 2019-12-22 07:30 | NUR ---
PATIENT IS AWAKE, ALERT, AND IN STABLE CONDITION WITH NO S/S OF RESPIRATORY DISTRESS. PATIENT C/O SACRUM WOUND 11/13- WOUND VAC APPLIED. TELEMETRY APPLIED. CALL LIGHT IS WITHIN REACH, PATIENT INSTRUCTED TO CALL FOR ASSISTANCE.
[2019-12-22 07:53] VITALS: BP 133/94
[2019-12-22] MEDS: METOPROLOL TARTRATE 25 MG TAB PO SCH ×2 (08:30→16:56)
[2019-12-22] MEDS: PREGABALIN 75 MG CAP PO SCH ×2 (08:31→16:56)
[2019-12-22 09:11] VITALS: BP 137/95
[2019-12-22 11:34] VITALS: BP 119/81
--- NOTE | 2019-12-22 15:32 | NUR ---
WOUND CARE CONSULT TO APPLY NEGATIVE PRESSURE THERAPY (KCI) @ 125 [facility] CONTINUOS PRESSURE TO STAGE 4 SACRAL ULCER FOR 49 YO MALE. MANSOOR 18 ON CONSERVATIVE PUP STATUS AND INTERVENTIONS SURFACE: REGULAR VISCO MATTRESS. LABS: WBC- 10.26 HGB- 11 POC GLUCOSE-153 PT PRESENTS WITH A NEGATIVE PRESSURE THERAPY WOUND VAC TO SACRUM, NEGATIVE PRESSURE REMOVED; 95% GRANULATION PRESENT AND 5% FIBRIN TO WOUND BED; MEASURES 8 CM X 3.8 CM X 3 CM WITH UNDERMINING FROM 7 OCLOCK TO 3 OCLOCK MEASURING 3.0 CM. SEROUSANGUINOUS DRAINAGE PRESENT IN CANISTER. DR. DUMONT PRESENT DURING ASSESSMENT RECEIVED ORDERS TO REAPPLY WOUND VAC AND TO RESUME WOUND VAC APPLICATION WITH HOME HEALTH; POTENTIAL DISCHARGE TODAY. SACRAL ULCER PACKED WITH BLACK FOAM, PERIWOUND SKIN PROTECTED AND COVERED WITH DRAPE AND BRIDGED TO RIGHT HIP AREA TO OFF LOAD SACRUM; SET AT [facility] CONTINUOS PRESSURE; SEALED. CANISTER CHANGED. PT REPORTS NO PAIN OR DISCOMFORT. PT IS READY TO BE DISCHARGE FROM HOSPITAL; INSTRUCTED TO LEAVE [facility] WOUND VAC IN PLACE, TO MONITOR WOUND VAC SEAL, TO MAINTAIN SEAL, TO AVOID GETTING WET, TO MAINTAIN CONNECTION AND TO DO NOT DISCONNECT FOR MORE THAN 2 HOURS. IF UNABLE TO MAINTAIN SEAL FOR MORE THAN 2 HOURS, NOTIFY MD AND WOUND CARE NURSE AND APPLY A WET TO DRY DRESSING. PT VERBALIZED UNDERSTANDING. RECOMMENDATIONS: NURSING TO REINFORCE SACRAL NPWT DRESSING IF LEAK IS PRESENT. NURSING TO MAINTAIN SEAL, TO AVOID GETTING WET, TO MAINTAIN CONNECTION AND TO DO NOT DISCONNECT FOR MORE THAN 2 HOURS. IF UNABLE TO MAINTAIN SEAL FOR MORE THAN 2 HOURS, NOTIFY MD AND WOUND CARE NURSE AND APPLY A WET TO DRY DRESSING. NURSING TO CONTINUE TO MONITOR PATIENT AND KEEP SKIN CLEAN AND FREE FROM STOOL OR IRRITATING MOISTURE AND CONTINUE TO FOLLOW CONSERVATIVE PUP INTERVENTIONS DAILY. NURSING TO CONTINUE REPOSITION PT SIDE TO SIDE EVERY TWO HOURS AND NEEDED. NURSING TO APPLY REGULAR VISCO MATTRESS. NURSING TO CONTINUE TO OFFLOAD FEET AND HEELS AT ALL TIMES WITH PILLOW SUSPENSION WHEN IN BED. NURSING TO CONTINUE TO ASSIST WITH PT NUTRITIONAL SUPPLEMENTS TO ENSURE PROPER REQUIREMENTS FOR HEALING. NURSING TO RE- CONSULT WOUND CARE NEEDED. THANK YOU FOR THIS CONSULTATION. Addendum: 12/22/19 at 1535 by Awa Conklin RN Amended: Links added.
[2019-12-22 15:47] VITALS: BP 103/68
--- NOTE | 2019-12-22 15:59 | NUR ---
DR. DUMONT INFORMED THAT DR. PETIT CANCELED PFT AND WILL HAVE PATIENT F/U WITH HIM IN 2-3 DAYS. ASKED FOR DISCHARGE ORDER- AWAITING RESPONSE/ORDER.
--- NOTE | 2019-12-22 18:43 | NUR ---
PATIENT DISCHARGE HOME- HOME HEALTH RESUMED, PATIENT LEFT WITH 2L OF O2 AND OXYGEN TANK. PATIENT IS IN STABLE CONDITION WITH NO S/S OF RESPIRATORY DISTRESS. NO PAIN VOICED. IV REMOVED WITH TIP INTACT. DISCHARGE TEACHING AND INSTRUCTIONS GIVEN TO THE PATIENT. THE PATIENT IS AWARE TO CALL DR. PETIT FOR F/U APPOINTMENT AND TO CALL THE O2 COMPANY UPON DISCHARGE. ALL PERSONAL ITEMS TAKEN WITH THE PATIENT INCLUDING HIS PERSONAL WHEELCHAIR.
[2019-12-26] MEDS ORDERED: ERGOCALCIFEROL PO SCH (09:00)
== END 2019-12-22 18:34 | disposition home health service (06) ==
LOC: ER 10:30 → INTOOBSV 12:48 → ERHOLD 12:48 → MED/SURG3 17:30
DX: R06.00 Dyspnea, unspecified (principal); E11.22 Type 2 diabetes mellitus with diabetic chronic kidney disease; I12.9 Hypertensive chronic kidney disease with stage 1 through stage 4 chronic kidney disease, or unspecified chronic kidney disease; N18.4 Chronic kidney disease, stage 4 (severe); I25.10 Atherosclerotic heart disease of native coronary artery without angina pectoris; F41.9 Anxiety disorder, unspecified; E78.5 Hyperlipidemia, unspecified; E11.42 Type 2 diabetes mellitus with diabetic polyneuropathy; Z86.19 Personal history of other infectious and parasitic diseases; J44.9 Chronic obstructive pulmonary disease, unspecified; L89.154 Pressure ulcer of sacral region, stage 4
CPT/HCPCS: 36415 ×4; 70490; 71045; 78582; 80053 ×2; 81001; 82550; 82553; 82948 ×4; 83690; 83880; 84484; 85025 ×2; 93005; 93306; 96372; 97606; 99285; A9540; G0378 ×4; J1170 ×3; J1815; J2405 ×2; U0002

== ENCOUNTER → 2021-07-08 | Day surgery (SDC) | payer OTHER ==
[~2021-07-08] MED LIST changes: +AMLODIPINE BESYL5 MG PO; +BUSPIRONE HCL5 MG PO; +COLACE100 MG PO; +FENTANYL CITRATE/PF 100MCG/2 ML INJ ONE; +HYOSCYAMINE SULFATE 0.5 MG/ML INJ ONE; +LANTUS 3ML100 UNITS/ SQ; +LIDOCAINE HCL 2% LOCAL INJ 5 ML SDV VIAL INJ ONE; +LYRICA75 MG PO; +METOPROLOL TART25 MG PO; +MIDAZOLAM HCL 2 MG/2 ML VIAL ONE; +PROPOFOL IV EMULSION 10 MG/ML 20 ML VIAL ONE; +REGLAN5 MG PO; +ROBAXIN-750750 MG PO; +SERTRALINE HCL100 MG PO; +ULTRAM50 MG PO; +VITAMIN D250 MCG PO
[2021-07-08 11:02] LABS: BASOPHILS # (AUTO) 0.1 (0.0-0.1); BASOPHILS % 0.5 % (0.0-1.0); EOSINOPHILS # (AUTO) 0.4 (0.0-0.4); EOSINOPHILS % 3.9 % (0.0-6.0); HEMATOCRIT 43.3 % (38.2-49.6); HEMOGLOBIN 14.1 g/dL (14.0-18.0); LYMPHOCYTES # (AUTO) 2.4 (1.0-3.2); LYMPHOCYTES % 26.5 % (18.0-39.1); MEAN CORPUSCULAR HEMOGLOBIN 30.7 pg (28-32); MEAN CORPUSCULAR HGB CONC 32.6 g/dL (31-35); MEAN CORPUSCULAR VOLUME 94.3 fL (81-99); MONOCYTES # (AUTO) 0.7 (0.2-0.8); NEUTROPHILS # (AUTO) 5.6 (2.1-6.9); NEUTROPHILS % 60.9 % (38.7-80.0); PLATELET COUNT 140 x10e3/uL (140-360); RED BLOOD COUNT 4.59 x10e6/uL (4.3-5.7); RED CELL DISTRIBUTION WIDTH 13.2 % (11.7-14.4)
[2021-07-11 12:00] VITALS: BP 135/85
== END | disposition home or self-care (01) ==
LOC: OR 09:00
PROVIDERS: ATTEND Internal Medicine Gastroenterology
DX: Z12.11 Encounter for screening for malignant neoplasm of colon (principal); D12.3 Benign neoplasm of transverse colon; D12.4 Benign neoplasm of descending colon; D12.8 Benign neoplasm of rectum; K64.8 Other hemorrhoids; G47.33 Obstructive sleep apnea (adult) (pediatric); E11.22 Type 2 diabetes mellitus with diabetic chronic kidney disease; I12.9 Hypertensive chronic kidney disease with stage 1 through stage 4 chronic kidney disease, or unspecified chronic kidney disease; N18.4 Chronic kidney disease, stage 4 (severe); I25.10 Atherosclerotic heart disease of native coronary artery without angina pectoris; I25.2 Old myocardial infarction; Z88.8 Allergy status to other drugs, medicaments and biological substances; Z01.810 Encounter for preprocedural cardiovascular examination; Z01.812 Encounter for preprocedural laboratory examination; Z20.822 Contact with and (suspected) exposure to COVID-19; Z79.4 Long term (current) use of insulin; Z95.5 Presence of coronary angioplasty implant and graft; Z87.891 Personal history of nicotine dependence
CPT/HCPCS: 36415; 45380; 45385; 82948; 85025; 93005; J1980; J2001; J2250; J2704; J3010; U0002; 45378

== ENCOUNTER 2025-02-15 14:38 | Emergency (ER) | payer MEDICARE ==
[~2025-02-15] VITALS: Ht 172.7 cm; Wt 94.3 kg
[~2025-02-15 14:38] MED LIST changes: -FENTANYL CITRATE/PF 100MCG/2 ML INJ ONE; -HYOSCYAMINE SULFATE 0.5 MG/ML INJ ONE; -LIDOCAINE HCL 2% LOCAL INJ 5 ML SDV VIAL INJ ONE; -MIDAZOLAM HCL 2 MG/2 ML VIAL ONE; -PROPOFOL IV EMULSION 10 MG/ML 20 ML VIAL ONE
[2025-02-15 15:17] VITALS: TEMP 98.7
[2025-02-15] MEDS ORDERED: SODIUM CHLORIDE FLUSH 10 ML SYR INJ PRN (15:45)
[2025-02-15 18:03] LABS: LEUKOCYTE ESTERASE ,URINE NEGATIVE (NEGATIVE); OPIATES SCREEN,URINE POSITIVE (NEGATIVE); PROTEIN,URINE DIPSTICK >=300 (NEGATIVE)
[2025-02-15 18:04] LABS: AMPHETAMINES SCREEN,URINE NEGATIVE (NEGATIVE); CANNABINOIDS SCREEN,URINE NEGATIVE (NEGATIVE); COCAINE SCREEN,URINE NEGATIVE (NEGATIVE); METHADONE SCREEN, URINE NEGATIVE (NEGATIVE); URINE UROBILINOGEN 1 mg/dL (0.2 - 1)
[2025-02-15 18:12] LABS: BASOPHILS % 0.8 % (0.0-1.0); EOSINOPHILS % 6.3 % (0.0-6.0); LYMPHOCYTES % 24.5 % (18.0-39.1); MONOCYTES % 8.4 % (4.4-11.3); NEUTROPHILS % 59.8 % (38.7-80.0); RED CELL DISTRIBUTION WIDTH 15.2 % (11.7-14.4)
[2025-02-15 18:18] LABS: EPITHELIAL CELLS,URINE FEW /LPF; HYALINE CASTS 0-1 (0-1); WBC,URINE (MAN) 0-5 /HPF (0-5)
[2025-02-15 18:27] LABS: INR 1.08
[2025-02-15 18:36] LABS: EST GLOMERULAR FILTRATION RATE 18 ML/MIN (>=60); PHOSPHORUS 5.1 MG/DL (2.3-4.7)
[2025-02-15 18:50] LABS: ETHANOL < 10.0 mg/dL (0.0-10.0)
[2025-02-15 19:38] VITALS: PULSE 60; RESP 16
[2025-02-15 20:28] VITALS: BP 150/82; PULSE 95; TEMP 97.9; O2SAT 90
[2025-02-16 05:41] LABS: ABG BASE EXCESS 7.0 mmol/L (-2 - 3); ABG HCO3 31 mmol/L (22-26); ABG OXYGEN SATURATION 75.0 % (95-98); ABG PCO2 43 mmHg (35-45); ABG PH 7.46 (7.35-7.45); ABG PO2 38 mmHg (80-105); ABG TCO2 32
== END 2025-02-15 20:12 | disposition home or self-care (01) ==
LOC: ER 14:41
DX: F03.90 Unspecified dementia, unspecified severity, without behavioral disturbance, psychotic disturbance, mood disturbance, and anxiety (principal); I12.9 Hypertensive chronic kidney disease with stage 1 through stage 4 chronic kidney disease, or unspecified chronic kidney disease; E11.22 Type 2 diabetes mellitus with diabetic chronic kidney disease; N18.9 Chronic kidney disease, unspecified; E78.5 Hyperlipidemia, unspecified; I25.10 Atherosclerotic heart disease of native coronary artery without angina pectoris; E78.00 Pure hypercholesterolemia, unspecified; F41.9 Anxiety disorder, unspecified; G47.30 Sleep apnea, unspecified; K21.9 Gastro-esophageal reflux disease without esophagitis; Z95.1 Presence of aortocoronary bypass graft
CPT/HCPCS: 36415; 70450; 80053; 80307; 80320; 81001; 82140; 82805; 83735; 84100; 85025; 85610; 85730; 94760; 99284

== ENCOUNTER 2025-03-04 18:22 | Emergency (ER) | payer MEDICARE ==
[~2025-03-04] VITALS: Ht 172.7 cm; Wt 90.7 kg
[2025-03-04 19:55] LABS: BASOPHILS % 0.9 % (0.0-1.0); EOSINOPHILS % 7.6 % (0.0-6.0); LYMPHOCYTES % 18.5 % (18.0-39.1); MONOCYTES % 8.4 % (4.4-11.3); NEUTROPHILS % 64.5 % (38.7-80.0); RED CELL DISTRIBUTION WIDTH 14.2 % (11.7-14.4)
[2025-03-04 20:18] LABS: EST GLOMERULAR FILTRATION RATE 24.0 ML/MIN (>=60)
[2025-03-04 21:37] VITALS: PULSE 58; RESP 15; TEMP 97.9; O2SAT 100
== END 2025-03-04 21:37 | disposition home or self-care (01) ==
LOC: ER 19:03
DX: R42 Dizziness and giddiness (principal); I95.9 Hypotension, unspecified; I12.9 Hypertensive chronic kidney disease with stage 1 through stage 4 chronic kidney disease, or unspecified chronic kidney disease; E11.22 Type 2 diabetes mellitus with diabetic chronic kidney disease; E11.65 Type 2 diabetes mellitus with hyperglycemia; N18.9 Chronic kidney disease, unspecified; Z99.2 Dependence on renal dialysis; F03.90 Unspecified dementia, unspecified severity, without behavioral disturbance, psychotic disturbance, mood disturbance, and anxiety; E78.5 Hyperlipidemia, unspecified; I25.10 Atherosclerotic heart disease of native coronary artery without angina pectoris; K21.9 Gastro-esophageal reflux disease without esophagitis; G47.30 Sleep apnea, unspecified; Z95.1 Presence of aortocoronary bypass graft
CPT/HCPCS: 36415; 80053; 84484; 85025; 93005; 99284